=== PATIENT | male | born 1955 | race Caucasian/White ===

== ENCOUNTER 2017-04-29 14:35 | Emergency (ER) | payer OTHER, SELFPAY ==
[2017-04-29 15:07] VITALS: BP 125/93; PULSE 93; RESP 18; TEMP 36.8; O2SAT 96; BMI 28.2
--- NOTE | 2017-04-29 15:16 | HMH.EDARPALP ---
ED Disposition Clinical Impression: Anxiety, Tobacco use disorder, Intermittent palpitations, Medication side effect, COPD (chronic obstructive pulmonary disease) Disposition: Home, Self-Care Condition on Discharge: Good Additional Instructions: 1- The patient was advised to stop smoking and see Dr. Nava for COPD. 2- stop using over the counter mucines because it has phenylephrine. 3- follow up with pcp for cancer work up as we discussed it you are worried. 4-follow up with comp care for anxiety. Referrals: Donta Moyer MD [Primary Care Provider] - Sunday Nava MD [Consulting Physician] - - Critical Care Critical Care Time: No Attestation: On 04/29/17, the high probability of a clinically significant, sudden or life threatening deterioration of the following system(s) required my full and direct attention, intervention and personal management. The time I documented below is in addition to time spent performing reported procedures but includes the following listed in this critical care notation. Medical Decision Making - Medical Records Medical records reviewed: Yes: I reviewed the patient's medical records. Vital Signs: 04/29/17 15:07 Temperature 98.2 F Temperature Source Oral Pulse Rate [Right Brachial] 93 H Respiratory Rate 18 Blood Pressure [Right Arm] 125/93 Blood Pressure Mean [Right Arm] 103 Blood Pressure Source [Right Arm] Automatic Cuff Blood Pressure Position [Right Arm] Sitting 02 Sat by Pulse Oximetry 96 Oxygen Delivery Method Room Air - Lab Data Lab Results 04/29/17 15:14: Specimen Source Right radial, O2 % Room air, ABG pH 7.41, ABG pCO2 34.6 L, ABG pO2 69.3 L, ABG HCO3 21.4 L, ABG Total CO2 22.5 L, ABG O2 Saturation 95, ABG Base Excess -3.2 L, Sukumar Test Acceptable 04/29/17 15:25: WBC 9.0, RBC 5.05, Hgb 17.0, Hct 50.0, MCV 99.0 H, MCH 33.7 H, MCHC 34.1, RDW 12.6, Plt Count 187, MPV 7.5, Neut % (Auto) 73.6, Lymph % (Auto) 18.5, Stephenson % (Auto) 6.4, Eos % (Auto) 0.8, Baso % (Auto) 0.7, Neut # (Auto) 6.6, Lymph # (Auto) 1.7, Stephenson # (Auto) 0.6, Eos # (Auto) 0.1, Baso # (Auto) 0.1 04/29/17 15:25: D-Dimer < 100 04/29/17 15:25: Sodium 135 L, Potassium 4.7, Chloride 101, Carbon Dioxide 26, Anion Gap 12.7, BUN 33 H, Creatinine 1.34 H, Estimated Creat Clear 82, Estimated GFR 54 L, Est GFR ( Amer) 66, Glucose 98, Calcium 8.9, Total Bilirubin 0.9, AST 19, ALT 38, Alkaline Phosphatase 79, Troponin I < 0.02, Total Protein 7.8, Albumin 4.4, Globulin 3.4 H, Albumin/Globulin Ratio 1.3, TSH 0.98, Free T4 1.22 04/29/17 15:25: B-Natriuretic Peptide 6 04/29/17 15:25: Magnesium 2.0 Result diagrams: 04/29/17 15:25 04/29/17 15:25 Orders (Tests/Meds): ORDERS Category Date Time Status EKG Request [ECG Request by /Monique] Stat Y 04/29/17 15:16 Ordered - ECG Data Tracing #1 Normal sinus rhythm 89/min no acute findings. ECG initial impression date: 04/29/17 - Abdias Inquiry Pt receiving controlled substance: No Abdias was queried for this patient: No Medical Decision Making Narrative: The patient was ruled out for an OK using troponin and EKG, he was ruled out for pulmonary embolism using a d-dimer, he had no congestive heart failure using CHF, [place] toxicosis using TSH and free T4. Standard the cause of his anxiety is his financial worries. He does have mild COPD from his long hx of smoking , and he needs to stop. Arrhythmia/Palpitations HPI - General Chief Complaint: Dizziness Stated Complaint: anxiety,light headed Mode of Arrival: Family Vehicle Limitations: No Limitations - History of Present Illness HPI narrative: 61 years old white male who was going through disability process. He has been experiencing anxiety dizziness palpitations for the past 2 weeks. He is afraid that he is experiencing a heart. When he gets so anxious with palpitations he smokes a cigarette sometimes it helps sometimes does not. He feels like is gettin
--- NOTE | 2017-04-29 15:20 | ED_ITS ---
ED Disposition Clinical Impression: Anxiety, Tobacco use disorder, Intermittent palpitations, Medication side effect, COPD (chronic obstructive pulmonary disease) Disposition: Home, Self-Care Condition on Discharge: Good Additional Instructions: 1- The patient was advised to stop smoking and see Dr. Nava for COPD. 2- stop using over the counter mucines because it has phenylephrine. 3- follow up with pcp for cancer work up as we discussed it you are worried. 4-follow up with comp care for anxiety. Referrals: Donta Moyer MD [Primary Care Provider] - Sunday Nava MD [Consulting Physician] - - Critical Care Critical Care Time: No Attestation: On 04/29/17, the high probability of a clinically significant, sudden or life threatening deterioration of the following system(s) required my full and direct attention, intervention and personal management. The time I documented below is in addition to time spent performing reported procedures but includes the following listed in this critical care notation. Medical Decision Making - Medical Records Medical records reviewed: Yes: I reviewed the patient's medical records. Vital Signs: 04/29/17 15:07 Temperature 98.2 F Temperature Source Oral Pulse Rate [Right Brachial] 93 H Respiratory Rate 18 Blood Pressure [Right Arm] 125/93 Blood Pressure Mean [Right Arm] 103 Blood Pressure Source [Right Arm] Automatic Cuff Blood Pressure Position [Right Arm] Sitting 02 Sat by Pulse Oximetry 96 Oxygen Delivery Method Room Air - Lab Data Lab Results 04/29/17 15:14: Specimen Source Right radial, O2 % Room air, ABG pH 7.41, ABG pCO2 34.6 L, ABG pO2 69.3 L, ABG HCO3 21.4 L, ABG Total CO2 22.5 L, ABG O2 Saturation 95, ABG Base Excess -3.2 L, Sukumar Test Acceptable 04/29/17 15:25: WBC 9.0, RBC 5.05, Hgb 17.0, Hct 50.0, MCV 99.0 H, MCH 33.7 H, MCHC 34.1, RDW 12.6, Plt Count 187, MPV 7.5, Neut % (Auto) 73.6, Lymph % (Auto) 18.5, Lawrence % (Auto) 6.4, Eos % (Auto) 0.8, Baso % (Auto) 0.7, Neut # (Auto) 6.6 , Lymph # (Auto) 1.7, Lawrence # (Auto) 0.6, Eos # (Auto) 0.1, Baso # (Auto) 0.1 04/29/17 15:25: D-Dimer < 100 04/29/17 15:25: Sodium 135 L, Potassium 4.7, Chloride 101, Carbon Dioxide 26, Anion Gap 12.7, BUN 33 H, Creatinine 1.34 H, Estimated Creat Clear 82, Estimated GFR 54 L, Est GFR ( Amer) 66, Glucose 98, Calcium 8.9, Total Bilirubin 0.9, AST 19, ALT 38, Alkaline Phosphatase 79, Troponin I < 0.02, Total Protein 7.8, Albumin 4.4, Globulin 3.4 H, Albumin/Globulin Ratio 1.3, TSH 0.98, Free T4 1.22 04/29/17 15:25: B-Natriuretic Peptide 6 04/29/17 15:25: Magnesium 2.0 Result diagrams: 04/29/17 15:25 04/29/17 15:25 Orders (Tests/Meds): ORDERS Category Date Time Status EKG Request [ECG Request by /Monique] Stat Y 04/29/17 15:16 Ordered - ECG Data Tracing #1 Normal sinus rhythm 89/min no acute findings. ECG initial impression date: 04/29/17 - Abdias Inquiry Pt receiving controlled substance: No Abdias was queried for this patient: No Medical Decision Making Narrative: The patient was ruled out for an CA using troponin and EKG, he was ruled out for pulmonary embolism using a d-dimer, he had no congestive heart failure using CHF, at [place] toxicosis using TSH and free T4. Standard the cause of his anxiety is his financial worries. He does have mild COPD from his long hx of smoking , and he needs to stop. [facility]
[2017-04-29 15:34] LABS: Basophils # 0.1 K/mm3 (0-0.2); Basophils % 0.7 % (0.1-2.0); Eosinophils # 0.1 K/mm3 (0.0-0.4); Eosinophils % 0.8 % (0.1-12.0); Lymphocytes # 1.7 K/mm3 (0.7-4.5); Lymphocytes % 18.5 K/mm3 (10-50); Mean Corpuscular HGB Conc 34.1 g/dL (31.8-35.4); Mean Corpuscular Hemoglobin 33.7 pg (27.0-31.2); Mean Platelet Volume 7.5 fl (7.4-10.4); Monocytes # 0.6 K/mm3 (0.1-1.0); Monocytes % 6.4 % (1.7-9.3); Neutrophils # 6.6 K/mm3 (1.8-7.8); Neutrophils % 73.6 % (37.0-80.0); Platelet Count 187 K/mm3 (142-424); Red Blood Count 5.05 M/mm3 (4.60-6.20); Red Cell Distribution Width 12.6 % (11.5-17.5)
[2017-04-29 15:50] LABS: Troponin I < 0.02 ng/ml (0.00-0.06)
[2017-04-29 15:55] LABS: Alanine Aminotransferase 38 U/L (12-78); Albumin Level 4.4 gm/dL (3.4-5.0); Albumin/Globulin Ratio 1.3 (1.1-1.8); Alkaline Phosphatase 79 U/L (46-116); Anion Gap 12.7 mEq/L (5-15); Aspartate Amino Transferase 19 U/L (15-37); Bilirubin,Total 0.9 mg/dL (0.2-1.0); Blood Urea Nitrogen 33 mg/dL (7-18); Calcium 8.9 mg/dL (8.5-10.1); Carbon Dioxide 26 mmol/L (21.0-32.0); Chloride 101 mmol/L (98-107); Creatinine Clearance Estimated 82 mL/min (0-300); Creatinine,Serum 1.34 mg/dL (0.70-1.30); Estimated Glomerular Filt Rate 54 ml/min (>60); Free T4 (Free Thyroxine) 1.22 ng/dl (0.76-1.46); GFR (African American) 66 ML/MIN (>60); Globulin 3.4 gm/dl (1.3-3.2); Glucose 98 mg/dL (74-106); Potassium 4.7 mmoL/L (3.5-5.1); Sodium 135 mmol/L (136-145); Thyroid Stimulating Hormone 0.98 uIU/ml (0.358-3.740); Total Protein,Serum 7.8 gm/dL (6.4-8.2)
[2017-04-29 16:13] LABS: ABG Base Excess -3.2 mmol/L (-2.4-2.3); ABG HCO3 21.4 mmhg (22.0-26.0); ABG Oxygen Saturation 95 % (90-100); ABG PCO2 34.6 mmhg (35.0-45.0); ABG PH 7.41 mmol/L (7.35-7.45); ABG PO2 69.3 mmhg (80-100); ABG TCO2 22.5 mmhg (23-27)
[2017-04-29 16:16] LABS: Allen's Test Acceptable; Oxygen ROOM AIR %; Source Right Radial
[2017-04-29 16:18] LABS: D-Dimer < 100 (0-400)
== END 2017-04-29 17:19 | disposition home or self-care (01) ==
PROVIDERS: Emergency Provider Emergency Medicine; Family Provider Nurse Practitioner Family; PCP Internal Medicine Adolescent Medicine
DX: F41.9 Anxiety disorder, unspecified (principal); R00.2 Palpitations; T50.905A Adverse effect of unspecified drugs, medicaments and biological substances, initial encounter; J44.9 Chronic obstructive pulmonary disease, unspecified; F17.210 Nicotine dependence, cigarettes, uncomplicated
CPT/HCPCS: 80053; 82803; 83735; 83880; 84439; 84443; 84484; 85025; 85378; 93005; 93041; 99283

== ENCOUNTER → 2018-10-29 15:14 | Outpatient (CLI) | payer OTHER, SELFPAY ==
--- NOTE | 2018-10-29 15:19 | CT_ITS ---
CT lung screening EXAM: CT LUNG LOW DOSE WO CONTRAST HISTORY: 50 pack-year smoking history, asymptomatic for lung cancer ITS.REASON: CURRENT TOBACCO USE ORDERING PHYSICIAN: Jana Armendariz PATIENT AGE: 63 years COMPARISON: None TECHNIQUE: The exam was performed on a GE Light Speed [address] scanner using 2.90 mGy CTDI. A low dose helical CT CHEST was performed on a multi-detector scanner. All CT scans at the facility use one or more dose reduction, viz: automated exposure control, ma/kV adjustment per patient size (including targeted exams where dose is matched to indication, i.e. head), or iterative reconstruction technique. The LDCT was performed in a facility that meets the criteria for the screening program. Data regarding this exam was submitted to ACR which is an approved registry. The order for this exam indicates that it came as a result of a lung cancer screening counseling shard decision-making visit that included all the elements required of such a visit including smoking cessation. The radiologist interpreting this exam meets the [facility] criteria for the LDCT lung cancer screening program. The exam is reported using the Lung-RADS classification scale and reported to the ACR registry. NOTE: This study was performed for the specific purposes of lung cancer screening and is not an alternative to diagnostic chest CT. RADIATION DOSE: CTDI vol(CT dose Index-volume) = 2.90mG DLP (Dose Length Product) = 109.42 mGcm FINDINGS: Changes of COPD with scattered areas of scarring and evidence of old granulomatous disease. 4 mm noncalcified nodule left apex axial image 13. No suspicious pulmonary nodules are evident. Coronary artery calcifications Probable right exophytic renal cyst Gynecomastia IMPRESSION: 1. Lung RADS Category: 2, benign 2. Other findings: Coronary artery calcification COPD. Gynecomastia RECOMMENDATIONS: 12 month LDCT follow-up
== END ==
PROVIDERS: PCP Nurse Practitioner Family; Visit Provider Nurse Practitioner Family
DX: Z12.2 Encounter for screening for malignant neoplasm of respiratory organs (principal); Z87.891 Personal history of nicotine dependence

== ENCOUNTER → 2019-11-04 15:04 | Outpatient (CLI) | payer MEDICARE, MEDICAID, SELFPAY ==
--- NOTE | 2019-11-04 15:08 | CT_ITS ---
PROCEDURE: CT LUNG SCREENING CLINICAL INDICATION: COPD 76.5 pack year smoking history. COMPARISON: CT LUNGSCREEN CT lung screening from 10/29/2018 TECHNIQUE: The exam was performed on a GE Light Speed [address] scanner using 2.90 mGy CTDI. A low dose helical CT CHEST was performed on a multi-detector scanner. All CT scans at the facility use one or more dose reduction, viz: automated exposure control, ma/kV adjustment per patient size (including targeted exams where dose is matched to indication, i.e. head), or iterative reconstruction technique. The LDCT was performed in a facility that meets the criteria for the screening program. Data regarding this exam was submitted to ACR which is an approved registry. The order for this exam indicates that it came as a result of a lung cancer screening counseling shard decision-making visit that included all the elements required of such a visit including smoking cessation. The radiologist interpreting this exam meets the CMS criteria for the LDCT lung cancer screening program. The exam is reported using the Lung-RADS classification scale and reported to the ACR registry. NOTE: This study was performed for the specific purposes of lung cancer screening and is not an alternative to diagnostic chest CT. RADIATION DOSE: CTDI vol(CT dose Index-volume) = 2.90mG DLP (Dose Length Product) = 117.24 mGcm Lung Rads Category: FINDINGS: COPD. Old granulomatous disease. Scattered areas of scarring. Bronchial thickening. No suspicious nodules OTHER FINDINGS: Gynecomastia. Coronary artery calcifications. Exophytic soft tissue density projecting off posterior aspect of the right kidney at 3.6 cm and may represent right renal cyst. 1.5 cm exophytic density superior aspect right kidney which may present a cyst. IMPRESSION: Lung rads category 1, negative Recommend annual LD CT Incidental note made coronary artery calcification COPD bronchial thickening and possible right renal cysts Dictated by: Sukumar Ayala MD 11/18/2019 07:53 Sukumar Ayala MD in [place] 11/18/2019 07:53
== END ==
PROVIDERS: PCP Nurse Practitioner Family; Visit Provider Nurse Practitioner Family
DX: Z87.891 Personal history of nicotine dependence (principal); Z12.2 Encounter for screening for malignant neoplasm of respiratory organs

== ENCOUNTER 2020-03-23 19:38 | Inpatient (IN) | payer MEDICARE, MEDICAID, SELFPAY ==
[2020-03-23] VITALS (12 sets, daily range): BP systolic 104–166; BP diastolic 68–108; PULSE 88–135; RESP 16–30; TEMP 36.7–37.5; O2SAT 84–99; BMI 35.3; BMI 31.5
[2020-03-23 19:48] LABS: ABG Base Excess -4.4 mmol/L (-2.4-2.3); ABG Oxygen Saturation 93 % (90-100); ABG PH 7.24 mmol/L (7.35-7.45); ABG PO2 70.1 mmhg (80-100); ABG TCO2 24.7 mmhg (23-27)
--- NOTE | 2020-03-23 19:48 | XR_ITS ---
PROCEDURE: XR CHEST PORTABLE CLINICAL HISTORY: soa Respiratory distress, shortness of air COMPARISON: No exams were available for comparison FINDINGS: The cardiomediastinal silhouette and pulmonary vascularity are within normal limits. There is blunting of the CP angles on both sides suggesting small effusions. There is vascular crowding in the lung bases. No acute bony abnormalities. IMPRESSION: Trace bilateral effusions Dictated by: Sukumar Ayala MD 03/23/2020 22:15 Sukumar Ayala MD in [place] 03/23/2020 22:15
[2020-03-23 19:51] LABS: Allen's Test Acceptable; Source Right Radial
[2020-03-23 19:58] LABS: Basophils # 0.1 K/mm3 (0-0.2); Basophils % 1.3 % (0.1-2.0); Eosinophils # 0.1 K/mm3 (0.0-0.4); Eosinophils % 1.4 % (0.1-12.0); Hematocrit 58.9 % (42.0-52.0); Lymphocytes # 2.6 K/mm3 (0.7-4.5); Lymphocytes % 34.9 % (10-50); Mean Corpuscular HGB Conc 33.1 g/dL (31.8-35.4); Mean Corpuscular Hemoglobin 36.7 pg (27.0-31.2); Mean Corpuscular Volume 110.7 fl (80-94); Mean Platelet Volume 7.7 fl (7.4-10.4); Monocytes # 0.4 K/mm3 (0.1-1.0); Monocytes % 5.9 % (1.7-9.3); Neutrophils # 4.2 K/mm3 (1.8-7.8); Neutrophils % 56.6 % (37.0-80.0); Platelet Count 244 K/mm3 (142-424); Red Blood Count 5.32 M/mm3 (4.60-6.20); Red Cell Distribution Width 15.3 % (11.5-17.5); White Blood Count 7.4 K/mm3 (4.8-10.8)
[2020-03-23 20:04] LABS: Hemoglobin 19.5 g/dL (14.1-18.0)
--- NOTE | 2020-03-23 20:20 | ECG_ITS ---
APPROVED REPORT Exam: Resting ECG HR:122 bpm ECG Measurements Heart Rate 122 AXES NC 142 P 87 QRSd 80 QRS 80 QT 312 T 85 QTc 444 Conclusion Sinus tachycardia Otherwise normal ECG Electronically signed by : Donta Moyer, 03/24/2020 17:27:15
[2020-03-23 20:21] LABS: NT Pro Brain Natriuretic Pep. 42.1 pg/mL (0-125)
[2020-03-23 20:25] LABS: Coronavirus 19 IgG Antibody Negative (Negative); Coronavirus 19 IgM Antibody Negative (Negative); Troponin I < 0.01 ng/ml (0.00-0.034)
[2020-03-23 20:27] LABS: Free T4 (Free Thyroxine) 1.14 ng/dl (0.78-2.19)
--- NOTE | 2020-03-23 20:33 | HMH.EDSOB ---
ED Disposition Clinical Impression: Acute exacerbation of chronic obstructive airways disease, Tobacco use disorder, Severe sepsis with acute organ dysfunction, Obesity (BMI 30-39.9) Respiratory failure with hypercapnia Qualifiers: Chronicity: acute on chronic Qualified Code(s): J96.22 - Acute and chronic respiratory failure with hypercapnia Disposition: Admitted As Inpatient Condition on Discharge: Serious - Critical Care Critical Care Time: Yes Attestation: On 03/23/20, the high probability of a clinically significant, sudden or life threatening deterioration of the following system(s) required my full and direct attention, intervention and personal management. The time I documented below is in addition to time spent performing reported procedures but includes the following listed in this critical care notation. Total Critical Care Time: 60 Vital system(s) involved:: Respiratory Failure My critical care processes included: Assessment & monitoring of V/S, Initial and Re-exams, Coordinating Care, Medication Orders and management, Documentation Medical Decision Making - Medical Records Medical records reviewed: Yes: I reviewed the patient's medical records. - Abdias Inquiry Pt receiving controlled substance: No Vital Signs: 03/23/20 19:37 03/23/20 20:30 Temperature 99.5 F Temperature Source Oral Pulse Rate [Right Brachial] 135 H 118 H Respiratory Rate 28 H 29 H Blood Pressure [Right Arm] 166/108 H 112/83 Blood Pressure Mean [Right Arm] 127 92 Blood Pressure Source [Right Arm] Automatic Cuff Automatic Cuff Blood Pressure Position [Right Arm] Sitting Sitting 02 Sat by Pulse Oximetry 99 97 Oxygen Delivery Method CPAP Venturi Mask Oxygen Flow Rate (LPM) 10 12 - Lab Data Lab results reviewed: Yes: I reviewed the patient's lab results. Lab Results 03/23/20 19:00: WBC 7.4, RBC 5.32, Hgb 19.5 H*, Hct 58.9 H, MCV 110.7 H, MCH 36.7 H, MCHC 33.1, RDW 15.3, Plt Count 244, MPV 7.7, Neut % (Auto) 56.6, Lymph % (Auto) 34.9, Shannon % (Auto) 5.9, Eos % (Auto) 1.4, Baso % (Auto) 1.3, Neut # (Auto) 4.2, Lymph # (Auto) 2.6, Shannon # (Auto) 0.4, Eos # (Auto) 0.1, Baso # (Auto) 0.1 03/23/20 19:00: Sodium 136, Potassium 3.8, Chloride 101, Carbon Dioxide 23, Anion Gap 15.8 H, BUN 17, Creatinine 1.20, Estimated Creat Clear 87, Estimated GFR 61, Est GFR ( Amer) 74, Glucose 126 H, Calcium 9.6, Troponin I < 0.01, NT-Pro-B Natriuret Pep 42.1, TSH 2.28 03/23/20 19:00: Free T4 1.14 03/23/20 19:00: SARS-CoV-2 IgG Ab (Rapid) Negative, SARS-CoV-2 IgM Ab (Rapid) Negative 03/23/20 19:00: D-Dimer 0.91 03/23/20 19:46: Specimen Source Right radial, O2 % 10 lpm bipap 7.5, ABG pH 7.24 L*, ABG pCO2 55.0 H, ABG pO2 70.1 L, ABG HCO3 23.0, ABG Total CO2 24.7, ABG O2 Saturation 93, ABG Base Excess -4.4 L, Sukumar Test Acceptable 03/23/20 20:10: Lactate 2.3 H Result diagrams: 03/23/20 19:00 03/23/20 19:00 Orders (Tests/Meds): ED MEDICATIONS Generic Name Dose Route Start Last Admin Trade Name Freq PRN Reason Stop Dose Admin Levofloxacin/Dextrose 750 mg in 150 mls @ 100 mls/hr 03/23/20 21:30 03/23/20 21:26 Levofloxacin 750mg/150ml Premix IV 04/06/20 21:29 100 mls/hr Q24H OLIVER Administration Protocol Discontinued Medications Generic Name Dose Route Start Last Admin Trade Name Freq PRN Reason Stop Dose Admin Methylprednisolone Sodium Succinate 125 mg 03/23/20 19:53 03/23/20 19:58 Methylprednisolone Sod Succ 125mg Vial IV 03/23/20 19:54 125 mg ONCE ONE Administration ORDERS Category Date Time Status XR chest portable Stat Exams 03/23/20 19:48 Taken Troponin I Q3H Lab 03/23/20 23:00 Ordered Troponin I Q3H Lab 03/24/20 02:00 Ordered Blood Culture Stat Micro 03/23/20 20:10 Received ABG [Arterial Blood Gas] Stat RT 03/23/20 23:30 Ordered - Radiology Data #1 Image(s): Chest Image Reviewed: Yes I reviewed the patient's radiology image Preliminary Findings: Abnormal (copd) - ECG Data
[2020-03-23 20:34] LABS: Lactic Acid 2.3 mmol/L (0.7-2.1)
[2020-03-23 20:35] LABS: Anion Gap 15.8 mEq/L (5-15); Blood Urea Nitrogen 17 mg/dl (9-20); Calcium 9.6 mg/dl (8.4-10.2); Carbon Dioxide 23 mmol/L (22.0-30.0); Chloride 101 mmol/L (98-107); Creatinine Clearance Estimated 87 mL/min (50-200); Estimated Glomerular Filt Rate 61 ml/min (>60); GFR (African American) 74 ML/MIN (>60); Glucose 126 mg/dl (74-100); Potassium 3.8 mmoL/L (3.5-5.1); Sodium 136 mmol/L (136-145)
[2020-03-23 20:42] LABS: Thyroid Stimulating Hormone 2.28 uIU/mL (0.465-4.68)
--- NOTE | 2020-03-23 21:12 | PC.NURSE ---
PATIENT SET AT 30%
--- NOTE | 2020-03-23 21:14 | PC.NURSE ---
on phone with dr preston
--- NOTE | 2020-03-23 21:21 | PC.NURSE ---
on phone with dr preston.
[2020-03-23 21:33] LABS: D-Dimer 0.91 ug/mL (0.15-8.0)
--- NOTE | 2020-03-23 23:31 | PC.NURSE ---
PT ARRIVED TO FLOOR VIA STRETCHER @ [phone]
[2020-03-23 23:35] LABS: ABG Base Excess -4.6 mmol/L (-2.4-2.3); ABG HCO3 21.3 mmhg (22.0-26.0); ABG Oxygen Saturation 96 % (90-100); ABG PCO2 41.3 mmhg (35.0-45.0); ABG PH 7.33 mmol/L (7.35-7.45); ABG PO2 77.8 mmhg (80-100); ABG TCO2 22.6 mmhg (23-27)
[2020-03-23 23:39] LABS: Allen's Test Acceptable; Oxygen 30% %; Source Right Radial
[2020-03-23 23:54] LABS: Reflex Lactic Add Lactic Reflex
[2020-03-24] VITALS (16 sets, daily range): BP systolic 96–147; BP diastolic 65–86; PULSE 79–100; RESP 20–22; TEMP 36.4–37.1; O2SAT 92–98; BMI 31.5
[2020-03-24 00:09] LABS: Lactic Acid Follow Up (RFLX 1) 1.6 mmol/L (0.7-2.1)
[2020-03-24 00:46] LABS: Troponin I 0.05 ng/ml (0.00-0.034)
[2020-03-24 02:47] LABS: Troponin I 0.05 ng/ml (0.00-0.034)
--- NOTE | 2020-03-24 07:13 | HMH.PHAINT ---
MEDICATION RECONCILIATION COMPLETED ON PATIENT USING EXTERNAL FILL HISTORY FROM PHARMACY. -LUISITO LANGE, ESAD
[2020-03-24 07:15] LABS: Basophils % 0.2 % (0.1-2.0); Eosinophils % 0.3 % (0.1-12.0); Lymphocytes # 0.4 K/mm3 (0.7-4.5); Lymphocytes % 8.8 % (10-50); Mean Corpuscular HGB Conc 32.5 g/dL (31.8-35.4); Mean Corpuscular Hemoglobin 35.7 pg (27.0-31.2); Mean Corpuscular Volume 109.7 fl (80-94); Mean Platelet Volume 7.4 fl (7.4-10.4); Monocytes # 0.1 K/mm3 (0.1-1.0); Monocytes % 1.8 % (1.7-9.3); Neutrophils # 4.3 K/mm3 (1.8-7.8); Neutrophils % 88.9 % (37.0-80.0); Platelet Count 200 K/mm3 (142-424); Red Blood Count 4.82 M/mm3 (4.60-6.20); Red Cell Distribution Width 14.7 % (11.5-17.5); White Blood Count 4.8 K/mm3 (4.8-10.8)
--- NOTE | 2020-03-24 07:15 | HMH.PHAVTE ---
[facility] Pharm[facility] VTE Monitoring - Patient Demographics Admission date: 03/23/20 Report Date: 03/24/20 Time: 07:15 Allergies/Adverse Reactions: Patient Allergies erythromycin base [ERYTHROMYCIN BASE] Allergy (Unknown, Verified 11/19/18 11:23) NA-NAUSEA/VOMITING Height: 1.68 m Weight: 89.074 kg Patient Problems: Current Active Problems Tobacco use disorder (Acute) Acute exacerbation of chronic obstructive airways disease (Acute) Severe sepsis with acute organ dysfunction (Acute) Obesity (BMI 30-39.9) (Acute) Respiratory failure with hypercapnia (Acute) - VTE Risk Labs: VTE Related Lab Results Hgb 19.5 g/dL (14.1-18.0) H* 03/23/20 19:00 Hct 58.9 % (42.0-52.0) H 03/23/20 19:00 Plt Count 244 K/mm3 (142-424) 03/23/20 19:00 BUN 17 mg/dl (9-20) 03/23/20 19:00 Creatinine 1.20 mg/dl (0.66-1.25) 03/23/20 19:00 Estimated Creat Clear 87 mL/min (50-200) 03/23/20 19:00 - Prophylaxis VTE Prophylaxis Ordered?: Yes Types of VTE Prophylaxis: TEDS Knee High Location of Applied Device: Bilateral Lower Extremeties
[2020-03-24 07:22] LABS: MANUAL DIFFERENTIAL MANUAL DIFFERENTIAL (MANUAL DIFF)
[2020-03-24 07:24] LABS: Hemoglobin 17.2 g/dL (14.1-18.0)
[2020-03-24 07:25] LABS: Hematocrit 52.9 % (42.0-52.0)
[2020-03-24 07:32] LABS: Chloride 101 mmol/L (98-107); Sodium 135 mmol/L (136-145)
[2020-03-24 07:33] LABS: Potassium 4.5 mmoL/L (3.5-5.1)
[2020-03-24 07:35] LABS: Anion Gap 15.5 mEq/L (5-15); Blood Urea Nitrogen 22 mg/dl (9-20); Carbon Dioxide 23 mmol/L (22.0-30.0); Creatinine Clearance Estimated 78 mL/min (50-200); Estimated Glomerular Filt Rate 61 ml/min (>60); GFR (African American) 74 ML/MIN (>60)
[2020-03-24 07:36] LABS: Calcium 9.6 mg/dl (8.4-10.2); Glucose 139 mg/dl (74-100); Magnesium 1.8 mg/dl (1.6-2.3)
--- NOTE | 2020-03-24 07:39 | PC.NURSE ---
Pt is A&Ox4. Expiratory wheezing noted t/o all lung calderon per auscultation. Pt continues to tolerate vapotherm appropriately. Active bowel sounds in all 4 quads. Skin is CDI. Serax protocol was initiated this shift per MD Mchugh. Pt stated he drank 1-2 pints of whiskey a day . CIWA scores initiated q4h, scores ranged from 5-6. Seizure pads applied for safetyNo other acute changes or complaints at this time.
--- NOTE | 2020-03-24 08:00 | CA_ITS ---
APPROVED REPORT EXAM: Comprehensive 2D, Doppler, and color-flow Echocardiogram [employer]chandising Associate: Nallely Morales CRT Ht: 5 ft 6 in Wt: 196lbs BSA: 1.98 BP: 112/83 mmHg Indications: COPD, Shortness of Breath, Hypertension/HDD, home o2, smoker, murmur 2D Dimensions LVOT 2.22 cm (M/F) 1.5-2.5 M-Mode Dimensions RVDd 3.88 cm (0.9-2.6) LA Diam 3.90 cm (1.9-4.0) LVDd 4.30 cm (3.5-5.7) Ao Diam 4.18 cm (2.0-3.7) LVDs 2.74 cm (3.5-5.7) IVSd 1.33 cm (0.6-1.1) PWd 0.95 cm (0.6-1.1) EF (Teich) 66.30% FS 36.30% EDV (Teich) 83.10 mL ESV (Teich) 28.00 mL LV Diastology E Decel Time 150.00 (160-240 msec) E/A Ratio 0.48 MED E' 5.80 (< 7 cm/sec) E'/MED E' Ratio 6.78 (>14) LAT E' 7.00 (<10 cm/sec) E/LAT E' Ratio 5.61 (>14) Aortic Valve AO Peak GR. 4.60 mmHg Mitral Valve MV E Max Eron. 39.00 (40-130 cm/s) MV A Velocity 82.00 (40-130 cm/s) E/A Ratio 0.48 MV Decel. Time 150.00 (160-240 ms) MV PHT 44.00 ms Pulmonary Valve PV Peak Velocity 58.00 (50-150 cm/s) Tricuspid Valve TR P. Velocity 197.00 cm/s RAP Estimate 10.00 mmHg RVSP 25.50 mmHg Left Ventricle Left atrium is mildly enlarged, left ventricle is normal size, mild concentric left ventricular hypertrophy, visually estimated ejection fraction 55% with no obvious regional wall motion abnormality, endocardial surfaces are poorly visualized. Grade 1 diastolic dysfunction seen without tissue Doppler evidence of raise left atrial pressure. Right Ventricle Right atrium and right ventricle are mildly enlarged with normal contractility. Aortic Valve Aortic valve is minimally thickened and fibrosed, there is no aortic stenosis or aortic insufficiency. Mitral Valve Mitral valve leaflets are minimally thickened, there is mild mitral regurgitation. Tricuspid Valve Tricuspid valve is grossly normal, there is mild tricuspid regurgitation, tricuspid regurgitation jet velocity is inadequate for calculation of the right ventricular systolic pressure. Pulmonic Valve Pulmonic valve is poorly visualized. Great Vessels Aortic root is normal size. Pericardium No significant pericardial effusion noted. Conclusion 1. Technically difficult study because of the patient factors and poor acoustic windows 2. Mild biatrial enlargement, normal left ventricular size, mild concentric left ventricular hypertrophy, visually estimated ejection fraction 55% with no regional wall motion abnormality, grade 1 diastolic dysfunction seen without tissue Doppler evidence of raise left atrial pressure, endocardial surfaces are poorly visualized. 3. Mildly enlarged right ventricle with normal contractility. 4. Mild mitral and tricuspid regurgitation. 5. No significant pericardial effusion noted. Electronically signed by : Gallo Funez, 03/25/2020 05:38:45
[2020-03-24 08:44] LABS: Lymphocytes % 4 % (10-50); Monocytes % 2 % (2-9); Neutrophils % 94 % (42-76); Platelet Estimate Normal; Total Cells Counted 100
[2020-03-24 08:45] LABS: RBC Morphology Normal
--- NOTE | 2020-03-24 08:51 | HMH.HP ---
*Admission Date: 03/23/20 <Edel Hayden 03/24/20 09:07> *Chief complaint: COPD exacerbation <CatrachoEdel - 03/24/20 09:07> *History of present illness: Mr. Flores is a 64yo white male with history of HTN, oxygen-dependent COPD, depression, and tobacco abuse. He presented the [facility] ED yesterday after a two-hour period of increasing shortness of breath at home. He denies any recent illness and has otherwise been feeling well. He notes that he had run out of his Trelegy inhaler about 5 days ago and had started taking using a family member's Anoro the day prior to admission. He denies any associated chest pain or URI symptoms. Upon arrival, his CXR showed COPD and trace bilateral effusions. His EKG showed sinus tachycardia with nonspecific ST-T wave changes. He was given IV doses of Levaquin and Solumedrol and admitted for observation. This morning, he denies any pain and feels he is breathing better. He is eating breakfast and voiding per urinal qshift. He has a NPC and remains SOB at rest. He required vapotherm overnight to maintain sats >90%. <Edel Hayden 03/24/20 09:07> [facility] History Medical History: Reports:: Chronic Obstructive Pulmonary Disease (COPD), Depression, Heart Murmur, Home Oxygen, Hypertension, Lung Disease (COPD, asthma) Denies:: Cancer, Diabetes Mellitus Type 1, Diabetes Mellitus Type 2, Internal Pacemaker, MRSA, Seizures <Edel Hayden 03/24/20 09:07> *Have you ever received a pneumonia vaccine?: Yes <Edel Hayden 03/24/20 09:07> *Have you received a flu vaccine this season?: Yes <Edel Hayden 03/24/20 09:07> Other Surgeries: No: Pacemaker <Jeff Hayden03/24/20 09:07> Amputation: No <Edel Hayden 03/24/20 09:07> - *Social History Last grade of school completed: 11th or 12th <Edel Hayden 03/24/20 09:07> Smoking Status: Current every day smoker <Edel Hayden 03/24/20 09:07> Tobacco Type: cigarettes <Jeff Haydena 03/24/20 09:07> # Packs/Day (cigarettes): 2 <CatrachoEdel 03/24/20 09:07> Alcohol Intake: current <CatrachoEdel 03/24/20 09:07> Alcohol Intake Frequency:: 0-2 drinks per day <Jeff Haydena 03/24/20 09:07> *Occupational Status:: disabled <Catracho,Edel 03/24/20 09:07> Household Members: significant other <CatrachoEdel 03/24/20 09:07> *Travel in the last 8 weeks: None <CatrachoEdel 03/24/20 09:07> Family Hx:: Asthma, Cancer, Diabetes, Heart Attack, Hypertension, Alcoholism <Catracho03/24/20 09:07> Review of Systems - Constitutional Denies fever(s), Denies headache(s), Denies weakness <CatrachoEdel 03/24/20 09:07> - ENT Denies dizziness, Denies headache(s), Denies nasal congestion, Denies nasal discharge, Denies post nasal drip, Denies sinus pain, Denies sore throat, Denies dizziness <Catracho03/24/20 09:07> - *Cardiovascular Reports shortness of breath, Reports shortness of breath with activity, Denies chest pain, Denies chest pain with activity, Denies generalized swelling, Denies lightheadedness <CatrachoEdel 03/24/20 09:07> - *Respiratory Reports chest congestion, Reports cough, Reports shortness of breath, Reports shortness of breath with activity, Reports pain with cough, Reports wheezing <CatrachoEdel 03/24/20 09:07> - *Gastrointestinal Denies abdominal pain, Denies loose stools, Denies nausea, Denies vomiting [facility]/20 09:07> - *Genitourinary Denies difficulty urinating <CatrachoEdel 03/24/20 09:07> - *Musculoskeletal Denies muscle weakness <CatrachoEdel 03/24/20 09:07> - *Neurologic Denies dizziness, Denies headache(s), Denies seizure-like activity, Denies weakness <Edel Hayden - 03/24/20 09:07> - Hematologic/Lymphatic Denies enlarged lymph nodes <Edel Hayden - 03/24/20 09:07> Meds Home Medications Medication Instructions Recorded Confirmed Type Albuterol Sulfate [Albuterol 1 - 2 puffs IH Q4HP PRN 03/24/20 03/24/20 History Sulfate Hfa] Amlodipine Besylate [Amlodipine 10 mg PO DAILY 03/24/20 03/24/20 History 10mg Tab] Richa
--- NOTE | 2020-03-24 15:11 | SW/DCPLANNER ---
WENT IN TO SEE PATIENT TO SEE IF HE NEEDED ANYTHING: HE PRESENTED IN WITH A COPD EXACERBATION, HE RESIDES IN [facility] AND THE PLAN IS FOR HIM TO RETURN HOME ONCE MEDICALLY STABLE TO DO SO.. HE IS HOME 02 DEPENDENT AND LIVES WITH HIS SIGNIFICANT OTHER... AT THIS TIME HE HAS NO HOME CARE NEEDS... CM WILL BE AVAILABLE TO ASSIST IF SOMETHING SHOULD CHANGE.
--- NOTE | 2020-03-24 15:49 | PC.NURSE ---
PT IS SITTING UP ON THE SOB AT THIS TIME. ALERT AND ORIENTED X4. LAST CIWA SCORE WAS 4. PT HAS MILD TREMORS AND A MILD HEADACHE. O2 SATURATION HAS MAINTAINED 90-94% ON 2 L NC. PT CAN AMBULATE AROUND THE ROOM WITH VERY MINIMAL ASSISTANCE. WILL CONTINUE TO MONITOR.
[2020-03-25] VITALS (16 sets, daily range): BP systolic 108–138; BP diastolic 63–83; PULSE 67–109; RESP 20–26; TEMP 36.3–36.9; O2SAT 95–98; BMI 32.3
--- NOTE | 2020-03-25 04:33 | PC.NURSE ---
PT A&OX4 lungs diminished. pt remains on 2L NC with O2 sats 94-97%. last CIWA score was 1. pt has ambulated to independently. pt took a shower and received bed change. pt has slept at intervals this shift.
--- NOTE | 2020-03-25 08:53 | HMH.ACPN2 ---
<Padmini Shea - Last Filed: 03/25/20 08:53> Internal Medicine - PN: Subj *Date: 03/25/20 *Time: 08:53 Interval history: Patient states he feels a little bit better today. He slept well and did eat his breakfast. His shortness of breath is improved and he denies any pain. Exam Vital signs and Labs for Last 24 Hours: Temp Pulse Resp BP Pulse Ox 97.4 F L 83 20 131/83 96 03/25/20 07:36 03/25/20 07:36 03/25/20 07:36 03/25/20 07:36 03/25/20 07:36 I & O for Last 24 hours: Intake & Output 03/22/20 03/23/20 03/24/20 03/25/20 11:59 11:59 11:59 11:59 Intake Total 240 / 240 2115 / 2115 Output Total 625 / 625 2150 / 2150 Balance -385 / -385 -35 / -35 Weight 196 lb 6 oz 201 lb Microbiology Reports for the Last 24 Hours: Microbiology 03/24/20 06:25 Sputum - Expectorated Sputum Gram Stain - Final - Constitutional no acute distress - *Routine Respiratory Exam Present: wheezes. Absent: rales - *Routine Cardiovascular Exam Present: RRR - *Routine Abdominal Exam Present: soft, normoactive bowel sounds. Absent: tenderness - *Routine Extremities Exam Absent: cyanosis, clubbing, edema - *Routine Skin Exam Present: warm. Absent: rash - *Routine Neurological Exam Present: alert, oriented X3 Assessment and Plan (1) Acute exacerbation of chronic obstructive airways disease Status: Acute Category: Medical Code(s): J44.1 - Chronic obstructive pulmonary disease with (acute) exacerbation (2) Obesity (BMI 30-39.9) Status: Acute Category: Medical Code(s): E66.9 - Obesity, unspecified (3) Respiratory failure with hypercapnia Status: Acute Qualifiers: Chronicity: acute on chronic Qualified Code(s): J96.22 - Acute and chronic respiratory failure with hypercapnia Category: Medical Code(s): J96.92 - Respiratory failure, unspecified with hypercapnia (4) Severe sepsis with acute organ dysfunction Status: Acute Category: Medical Code(s): A41.9 - Sepsis, unspecified organism; R65.20 - Severe sepsis without septic shock (5) Tobacco use disorder Status: Acute Category: Medical Code(s): F17.200 - Nicotine dependence, unspecified, uncomplicated - Assessment and plan all Dx Assessment and Plan for all problems:: We will continue current care and await sputum culture results. <Will Mchugh - Last Filed: 03/25/20 09:50> Internal Medicine - PN: Subj *Date: 03/25/20 *Time: 09:50 Exam Vital signs and Labs for Last 24 Hours: Temp Pulse Resp BP Pulse Ox 97.4 F L 83 20 131/83 96 03/25/20 07:36 03/25/20 07:36 03/25/20 07:36 03/25/20 07:36 03/25/20 08:45 I & O for Last 24 hours: Intake & Output 03/22/20 03/23/20 03/24/20 03/25/20 23:59 23:59 23:59 23:59 Intake Total 480 / 480 1875 / 1875 Output Total 1575 / 1925 1200 / 1200 Balance -1095 / -1445 675 / 675 Weight 196 lb 6 oz 196 lb 6 oz 201 lb Microbiology Reports for the Last 24 Hours: Microbiology 03/24/20 06:25 Sputum - Expectorated Sputum Gram Stain - Final Assessment and Plan (1) Acute exacerbation of chronic obstructive airways disease Status: Acute Category: Medical Code(s): J44.1 - Chronic obstructive pulmonary disease with (acute) exacerbation (2) Obesity (BMI 30-39.9) Status: Acute Category: Medical Code(s): E66.9 - Obesity, unspecified (3) Respiratory failure with hypercapnia Status: Acute Qualifiers: Chronicity: acute on chronic Qualified Code(s): J96.22 - Acute and chronic respiratory failure with hypercapnia Category: Medical Code(s): J96.92 - Respiratory failure, unspecified with hypercapnia (4) Severe sepsis with acute organ dysfunction Status: Acute Category: Medical Code(s): A41.9 - Sepsis, unspecified organism; R65.20 - Severe sepsis without septic shock (5) Tobacco use disorder Status: Acute Category: Medical Code(s): F17.200 - Nicotine dependence, unspecified, uncompli
--- NOTE | 2020-03-25 15:00 | PC.NURSE ---
A&OX4. PT HAS TOLERATED 2L NC WELL THROUGHOUT SHIFT. RESPIRATIONS REGULAR AND UNLABORED. EXPIRATORY WHEEZES NOTED THROUGHOUT. OCCASIONAL PRODUCTIVE COUGH NOTED. HAND CHIEF CONTROLLER TOWER EQUAL. +2 PULSES NOTED THROUGHOUT. HAND CHIEF CONTROLLER TOWER EQUAL. ACTIVE BOWEL SOUNDS HEARD IN ALL 4 QUADRANTS. SOFT AND NONTENDER ABDOMEN. NO BM REPORTED THUS FAR. PT VOIDS PER URINAL. CLEAR YELLOW URINE NOTED. NO REPORTS OF PAIN THUS FAR. PT STATES HE FEELS MUCH BETTER COMPARED TO YESTERDAY. HE HAS SLEPT ON AND OFF THROUGHOUT SHIFT. CIWA HAS BEEN BELOW 2 THROUGHOUT SHIFT. WILL CONTINUE TO MONITOR. NO REPORTS OF SOB. PT HAS REMAINED ON TELE THROUGHOUT SHIFT. PT IS CURRENTLY ASLEEP W CALL LIGHT WITHIN REACH. BED IN LOWEST POSITION. VSS. WILL CONTINUE TO MONITOR.
--- NOTE | 2020-03-25 15:58 | PC.NURSE ---
CALLED RESPIRATORY TO GET PT DUO NEB TREATMENT.
[2020-03-26] VITALS: BP 126/64; PULSE 90; PULSE 99; RESP 22; TEMP 36.9; O2SAT 96
[2020-03-26 04:00] VITALS: BP 105/69; PULSE 80; RESP 24; TEMP 36.4; O2SAT 96
--- NOTE | 2020-03-26 04:50 | PC.NURSE ---
Pt has been pleasant and cooperative this shift. A&O X4. No complaints of pain or SOA. Pt is receiving O2 via NC @ 2 LPM with sats. >90%. Lung sounds reveal inspiratory and expiratory wheezing. Skin is C/D/I. No edema noted. Pt ambulates independently and uses the urinal to void dark, yellow urine without issue. No BM this shift. A new 20 G peripheral IV was inserted in the RT forearm this shift. IV is patent and SL. VSS. Call light within reach. Will continue to monitor.
[2020-03-26 05:04] VITALS: BMI 32.5
[2020-03-26 05:58] VITALS: PULSE 89; PULSE 92
--- NOTE | 2020-03-26 07:00 | XR_ITS ---
PROCEDURE: XR CHEST 2V CLINICAL HISTORY: SOB, COPD exacerbation COMPARISON: CR XR CHEST PORTABLE from 03/23/2020 FINDINGS: The cardiomediastinal silhouette and pulmonary vascularity are within normal limits. COPD. No lobar consolidation or collapse. There is increased density in the lower lung zones on both sides probably due to soft tissue attenuation the breast shadow. No acute bony abnormalities. IMPRESSION: COPD. Dictated by: Sukumar Ayala MD 03/26/2020 07:10 Sukumar Ayala MD in [facility] 03/26/2020 07:10
[2020-03-26 08:00] VITALS: BP 132/72; PULSE 57; PULSE 80; RESP 20; TEMP 37.2; O2SAT 91
--- NOTE | 2020-03-26 08:05 | HMH.ACPN2 ---
<Padmini Shea - Last Filed: 03/26/20 08:05> Internal Medicine - PN: Subj *Date: 03/26/20 *Time: 08:05 Interval history: Patient states he is feeling a little bit better today. He still has some shortness of breath and a cough. He denies any pain and states he slept off and on throughout the night and was able to eat some breakfast this morning. Exam Vital signs and Labs for Last 24 Hours: Temp Pulse Resp BP Pulse Ox 97.6 F 92 H 24 105/69 L 96 03/26/20 04:00 03/26/20 05:58 03/26/20 04:00 03/26/20 04:00 03/26/20 04:00 I & O for Last 24 hours: Intake & Output 03/23/20 03/24/20 03/25/20 03/26/20 11:59 11:59 11:59 11:59 Intake Total 240 / 240 2115 / 2115 870 / 870 Output Total 625 / 625 2150 / 2150 1974 / 1974 Balance -385 / -385 -35 / -35 -1105 / -1105 Weight 196 lb 6 oz 201 lb 202 lb 6 oz Microbiology Reports for the Last 24 Hours: Microbiology 03/24/20 06:25 Sputum - Expectorated Sputum Gram Stain - Final 03/24/20 06:25 Sputum - Expectorated Sputum Sputum Culture - Final Normal Respiratory Donna 03/23/20 20:10 Blood Blood Culture - Preliminary NO GROWTH AFTER 48 HOURS 03/23/20 20:10 Blood Blood Culture - Preliminary NO GROWTH AFTER 48 HOURS - Constitutional no acute distress - *Routine Respiratory Exam Present: decreased breath sounds, wheezes (bilaterally) - *Routine Cardiovascular Exam Present: RRR - *Routine Abdominal Exam Present: soft, normoactive bowel sounds. Absent: tenderness - *Routine Extremities Exam Absent: cyanosis, clubbing, edema - *Routine Skin Exam Present: warm. Absent: rash - *Routine Neurological Exam Present: alert, oriented X3 Assessment and Plan (1) Acute exacerbation of chronic obstructive airways disease Status: Acute Category: Medical Code(s): J44.1 - Chronic obstructive pulmonary disease with (acute) exacerbation (2) Obesity (BMI 30-39.9) Status: Acute Category: Medical Code(s): E66.9 - Obesity, unspecified (3) Respiratory failure with hypercapnia Status: Acute Qualifiers: Chronicity: acute on chronic Qualified Code(s): J96.22 - Acute and chronic respiratory failure with hypercapnia Category: Medical Code(s): J96.92 - Respiratory failure, unspecified with hypercapnia (4) Severe sepsis with acute organ dysfunction Status: Acute Category: Medical Code(s): A41.9 - Sepsis, unspecified organism; R65.20 - Severe sepsis without septic shock (5) Tobacco use disorder Status: Acute Category: Medical Code(s): F17.200 - Nicotine dependence, unspecified, uncomplicated - Assessment and plan all Dx Assessment and Plan for all problems:: Will discuss further care with Dr. Mchugh. <Will Mchugh - Last Filed: 03/26/20 08:41> Internal Medicine - PN: Subj *Date: 03/26/20 *Time: 08:40 Exam Vital signs and Labs for Last 24 Hours: Temp Pulse Resp BP Pulse Ox 98.9 F 57 L 20 132/72 91 L 03/26/20 08:00 03/26/20 08:00 03/26/20 08:00 03/26/20 08:00 03/26/20 08:00 I & O for Last 24 hours: Intake & Output 03/23/20 03/24/20 03/25/20 03/26/20 23:59 23:59 23:59 23:59 Intake Total 480 / 480 2595 / 2595 630 / 630 Output Total 1575 / 1925 2650 / 2825 525 / 525 Balance -1095 / -1445 -55 / -230 105 / 105 Weight 196 lb 6 oz 196 lb 6 oz 201 lb 202 lb 6 oz Microbiology Reports for the Last 24 Hours: Microbiology 03/24/20 06:25 Sputum - Expectorated Sputum Gram Stain - Final 03/24/20 06:25 Sputum - Expectorated Sputum Sputum Culture - Final Normal Respiratory Donna 03/23/20 20:10 Blood Blood Culture - Preliminary NO GROWTH AFTER 48 HOURS 03/23/20 20:10 Blood Blood Culture - Preliminary NO GROWTH AFTER 48 HOURS Assessment and Plan (1) Acute exacerbation of chronic obst
--- NOTE | 2020-03-26 08:38 | HMH.DCSUM ---
General - General Admission date:: 03/23/20 Discharge date: 03/26/20 HPI HPI: Mr. Flores is a 64yo white male with history of HTN, oxygen-dependent COPD, depression, and tobacco abuse. He presented the [facility] ED yesterday after a two-hour period of increasing shortness of breath at home. He denies any recent illness and has otherwise been feeling well. He notes that he had run out of his Trelegy inhaler about 5 days ago and had started taking using a family member's Anoro the day prior to admission. He denies any associated chest pain or URI symptoms. Upon arrival, his CXR showed COPD and trace bilateral effusions. His EKG showed sinus tachycardia with nonspecific ST-T wave changes. He was given IV doses of Levaquin and Solumedrol and admitted for observation. This morning, he denies any pain and feels he is breathing better. He is eating breakfast and voiding per urinal qshift. He has a NPC and remains SOB at rest. He required vapotherm overnight to maintain sats >90%. Hospital Course Hospital Course: The patient's initial chest x-ray showed trace bilateral effusions. He had been out of his inhaler at home, which probably played a large role in his admission. Smoking cessation was discussed with the patient. An echo was ordered. It showed an EF of 55% with grade 1 diastolic dysfunction. The patient's shortness of breath improved throughout his admission. He began eating and sleeping well. He had a repeat chest x-ray showing only COPD. His sputum showed no growth. His blood culture showed no growth. He was stable to be discharged home on some Trelegy samples. Objective Vital signs: Temp Pulse Resp BP Pulse Ox 98.9 F 57 L 20 132/72 91 L 03/26/20 08:00 03/26/20 08:00 03/26/20 08:00 03/26/20 08:00 03/26/20 08:00 Narrative: - Constitutional no acute distress - *Routine Respiratory Exam Present: decreased breath sounds, wheezes (bilaterally) - *Routine Cardiovascular Exam Present: RRR - *Routine Abdominal Exam Present: soft, normoactive bowel sounds. Absent: tenderness - *Routine Extremities Exam Absent: cyanosis, clubbing, edema - *Routine Skin Exam Present: warm. Absent: rash - *Routine Neurological Exam Present: alert, oriented X3 Results Labs on day of discharge: Preliminary micro results at discharge 03/23/20 20:10 Blood Culture - Preliminary Blood NO GROWTH AFTER 48 HOURS 03/23/20 20:10 Blood Culture - Preliminary Blood NO GROWTH AFTER 48 HOURS DS: Diagnosis - Discharge Diagnosis (1) Acute exacerbation of chronic obstructive airways disease Status: Acute (2) Obesity (BMI 30-39.9) Status: Acute (3) Respiratory failure with hypercapnia Status: Acute (4) Severe sepsis with acute organ dysfunction Status: Acute (5) Tobacco use disorder Status: Acute Discharge Plan - Patient Discharge Instructions ACTIVITY: Continue current activity DIET: continue same diet Patient Instructions: Chronic Obstructive Pulmonary Disease - Follow up Plan Follow up with: Jana Armendariz [Primary Care Provider] - 1 week Disposition: Home, Self-[facility] Medications: Home Medications Medication Instructions Recorded Confirmed Type Albuterol Sulfate [Albuterol 1 - 2 puffs IH Q4HP PRN 03/24/20 03/24/20 History Sulfate Hfa] Amlodipine Besylate [Amlodipine 10 mg PO DAILY 03/24/20 03/24/20 History 10mg Tab] Escitalopram Oxalate 20 mg PO DAILY 03/24/20 03/24/20 History Fluticasone/Umeclidin/Vilanter 1 puff IH DAILY 03/24/20 03/24/20 History [Trelegy Ellipta 100-62.5-25] Lisinopril/Hydrochlorothiazide 1 tab PO DAILY 03/24/20 03/24/20 History [Lisinopril-Hctz 20-12.5 mg Tab*] levoFLOXacin [Levaquin 750mg 750 mg PO DAILY #5 tab 03/26/20 Rx tablet] predniSONE [Prednisone 20mg 20 mg PO BID #10 tab 03/26/20 Rx Tab] Prescriptions/Medication Reconciliation: New levoFLOXacin [Levaquin 750mg tablet] 750
--- NOTE | 2020-03-26 09:26 | HMH.PHAINT ---
DISC-DISCUSSED PREDNISONE AND LEVAQUIN DOSING WITH THE PATIENT. CALLED [facility] TO MAKE SURE THEY WOULD BE OPEN TODAY. OPEN UNTIL 1:00. DISCUSSED WITH PATIENT.
== END 2020-03-26 10:45 | disposition home or self-care (01) | DRG 189 ==
LOC: ER 20:04 → 2ND 21:32
PROVIDERS: Admitting Provider Family Medicine; Emergency Provider Emergency Medicine; PCP Nurse Practitioner Family; Visit Provider Family Medicine
DX: J96.22 Acute and chronic respiratory failure with hypercapnia (principal); R65.20 Severe sepsis without septic shock; J44.1 Chronic obstructive pulmonary disease with (acute) exacerbation; Z72.0 Tobacco use; I10 Essential (primary) hypertension; Z99.81 Dependence on supplemental oxygen; Z79.51 Long term (current) use of inhaled steroids; Z79.899 Other long term (current) drug therapy
CPT/HCPCS: 36415; 71045; 71046; 80048; 82803; 83605; 83735; 83880; 84439; 84443; 84484; 85007; 85025; 85378; 86328; 87040; 87070; 87205; 93005; 93306; 94640; 94761; 96365; 96375; 99285; J1956; J2405

== ENCOUNTER → 2020-11-06 12:51 | Outpatient (CLI) | payer MEDICARE, MEDICAID, SELFPAY ==
--- NOTE | 2020-11-06 12:54 | CT_ITS ---
PROCEDURE: CT LUNG SCREENING CLINICAL INDICATION: HX OF NICOTINE DEPENDENCE Current smoker 50 pack year smoking history COMPARISON: CT CT LUNG SCREENING from 11/04/2019 TECHNIQUE: The exam was performed on a GE Light Speed [address] scanner using 2.90 mGy CTDI. A low dose helical CT CHEST was performed on a multi-detector scanner. All CT scans at the facility use one or more dose reduction, viz: automated exposure control, ma/kV adjustment per patient size (including targeted exams where dose is matched to indication, i.e. head), or iterative reconstruction technique. The LDCT was performed in a facility that meets the criteria for the screening program. Data regarding this exam was submitted to [employer] which is an approved registry. The order for this exam indicates that it came as a result of a lung cancer screening counseling shard decision-making visit that included all the elements required of such a visit including smoking cessation. The radiologist interpreting this exam meets the [facility] criteria for the LDCT lung cancer screening program. The exam is reported using the Lung-RADS classification scale and reported to the [employer]CR registry. NOTE: This study was performed for the specific purposes of lung cancer screening and is not an alternative to diagnostic chest CT. RADIATION DOSE: CTDI vol(CT dose Index-volume) = 2.90mG DLP (Dose Length Product) = 111.25 mGcm FINDINGS: COPD changes with evidence of old granulomatous disease. There is scattered areas of scarring. A new parenchymal opacity is present in the left lower lobe posteriorly flat like in nature consistent with an area of atelectasis or scarring which is developed in the interval. A 6 mm opacity is present in the left lower lobe posteriorly and inferiorly probably unchanged. OTHER FINDINGS: Coronary artery calcifications. Gynecomastia IMPRESSION: Lung-RADS Category 3 Probably Benign. New flat like parenchymal opacity left lower lobe posteriorly which may be due to postinflammatory scarring. Follow-up suggested. Follow-up: [address] Chest with contrast. Dictated by: Sukumar Ayala MD 11/09/2020 09:28 Sukumar Ayala MD in [place] 11/09/2020 09:28
== END ==
PROVIDERS: PCP Nurse Practitioner Family; Visit Provider Nurse Practitioner Family
DX: Z87.891 Personal history of nicotine dependence (principal); Z12.2 Encounter for screening for malignant neoplasm of respiratory organs
CPT/HCPCS: 71271

== ENCOUNTER 2022-08-12 10:25 | Inpatient (IN) | payer MEDICARE, MEDICAID, SELFPAY ==
[2022-08-12] VITALS (17 sets, daily range): BP systolic 90–170; BP diastolic 57–82; PULSE 60–97; RESP 18–36; TEMP 36.3–36.8; O2SAT 94–100; BMI 24.3; BMI 24.4
--- NOTE | 2022-08-12 10:30 | ECG_ITS ---
APPROVED REPORT Exam: Resting ECG HR:98 bpm ECG Measurements Heart Rate 98 AXES OR 148 P 82 QRSd 81 QRS 78 QT 357 T 65 QTc 412 Conclusion SINUS RHYTHM WITH OCCASIONAL ECTOPIC PREMATURE COMPLEXES NONSPECIFIC ST & T-WAVE ABNORMALITY BORDERLINE ECG UNCONFIRMED REPORT Electronically signed by : Donta Moyer MD 08/12/2022 14:59:59
--- NOTE | 2022-08-12 10:35 | XR_ITS ---
FINAL REPORT CLINICAL HISTORY: concern for pneumonia COMPARISON: 03/26/2020 FINDINGS: There is no evidence of effusion or other pleural disease. The mediastinum has a normal appearance. The cardiac silhouette is unremarkable. IMPRESSION: Unremarkable chest exam. Reviewed, Interpreted and Dictated by Nikita Rodriges MD Transcribed by Yuli Godoy Authenticated and [facility]
--- NOTE | 2022-08-12 10:37 | HMH.EDGENADL ---
Discharge Plan Disposition Patient Disposition: Admitted As Inpatient Clinical Impressions Clinical Impression: Acute and chronic respiratory failure, Asthma exacerbation in COPD Discharge ED Provider: Sheldon Huitron General Adult HPI General Chief complaint: Shortness of Breath/Dyspnea Stated complaint: resp distress Time Seen by Provider: 08/12/22 10:27 History of Present Illness HPI narrative: Patient is a 66-year-old male with past medical history of COPD, chronic respiratory failure who presents with concern for shortness of breath. He says that his symptoms started approximately 5 days ago. He says he has had changes in his sputum production and his coughing up brown-colored sputum. He says that he is wearing oxygen at home but says that he has had to wear more oxygen than normal. Denies any fever or chills. Says he feels like he cannot catch a full breath. He received 2 DuoNebs in route with EMS. Related Data Home Medications Medication Instructions Recorded Confirmed albuterol sulfate 90 mcg/actuation 1 - 2 puffs IH Q4HP PRN Shortness 03/24/20 03/24/20 aerosol inhaler Of Breath amlodipine 10 mg tablet 10 mg PO DAILY Hypertension 03/24/20 03/24/20 escitalopram oxalate 20 mg tablet 20 mg PO DAILY MOOD 03/24/20 03/24/20 fluticasone fur. 100 mcg-umeclid 1 puff IH DAILY COPD 03/24/20 03/24/20 62.5 mcg-vilant 25 mcg inhalat.powder lisinopril 20 1 tab PO DAILY Hypertension 03/24/20 03/24/20 mg-hydrochlorothiazide 12.5 mg tablet Previous Rx's Medication Instructions Recorded levofloxacin 750 mg tablet 750 mg PO DAILY #5 tabs 03/26/20 prednisone 20 mg tablet 20 mg PO BID #10 tabs 03/26/20 Allergies Allergy/AdvReac Type Severity Reaction Status Date / Time erythromycin base Allergy Unknown NA-NAUSEA/V Verified 11/19/18 11:23 [ERYTHROMYCIN BASE] OMITING PFSH PFSH Disclaimer: The information contained in this section may have been updated after the patient was seen, as this information can be updated by other users. Social History Smoking Status: Current every day smoker tobacco type: cigarettes packs per day: 2 second hand exposure: No alcohol intake: current current occupational status: disabled Travel in the last 8 weeks: None household members: significant other caffeine: No ROS Obtained: Yes All systems reviewed & no additional complaints except as documented Physical Exam General General appearance: alert and in distress Head Head exam: atraumatic, normocephalic and normal inspection Eye Eye exam: Present normal appearance and PERRL ENT ENT exam: Present normal exam, mucous membranes moist and normal external ear exam Neck Neck exam: Present normal inspection and trachea midline Chest Chest inspection: Present normal inspection and symmetric chest wall rise Respiratory Respiratory exam: Present normal lung sounds bilaterally, respiratory distress, wheezes, accessory muscle use and prolonged expiratory phase Expanded Respiratory Exam Location: Left: wheezes, rhonchi and decreased breath sounds, Right: wheezes, rhonchi and decreased breath sounds, Upper: wheezes, rhonchi and decreased breath sounds and Lower: wheezes, rhonchi and decreased breath sounds Cardiovascular Cardiovascular exam: Present normal rhythm and tachycardia Abdominal Exam Abdominal exam: Present soft; Absent distention, tenderness or guarding Extremities Exam Extremities exam: Present normal inspection; Absent edema Neurological Exam Neurological exam: Present alert and oriented X3 Psychiatric Psychiatric exam: Present normal affect and normal mood Skin Skin exam: Present warm, dry, intact and normal color Medical Decision Making Medical Records Medical records reviewed: Yes I reviewed the patient's medical records. Abdias Inquiry Pt receiving controlled substance: No Vital Signs: 08/12/22 10:25 08/12/22 10:31 08/12/22 11:00 Temperature 98.2 F Temperature Source Or
--- NOTE | 2022-08-12 10:53 | PC.NURSE ---
MAGNESIUM STARTED AND NO NEEDS AT THIS TIME
[2022-08-12 10:59] LABS: Alanine Aminotransferase 26 U/L (12-78); Albumin Level 3.7 g/dl (3.5-5.0); Albumin/Globulin Ratio 1.1 (1.1-1.8); Alkaline Phosphatase 127 U/L (38-126); Aspartate Amino Transferase 34 U/L (17-59); Bilirubin,Total 0.6 mg/dl (0.2-1.3); Blood Urea Nitrogen 24 mg/dl (9-20); Calcium 8.9 mg/dl (8.4-10.2); Chloride 91 mmol/L (98-107); Creatinine Clearance Estimated 68 mL/min (50-200); Estimated Glomerular Filt Rate 67 ml/min (>60); GFR (African American) 81 ML/MIN (>60); Globulin 3.3 g/dL (1.3-3.2); Glucose 129 mg/dl (74-100); Sodium 145 mmol/L (136-145)
--- NOTE | 2022-08-12 10:59 | PC.NURSE ---
rapid covid swab sent to lab
[2022-08-12 11:00] LABS: Basophils % 0.3 % (0.1-2.0); Eosinophils % 0.4 % (0.1-12.0); Hematocrit 43.2 % (42.0-52.0); Hemoglobin 13.9 g/dL (14.1-18.0); Lymphocytes # 1.6 K/mm3 (0.7-4.5); Lymphocytes % 13.8 % (10-50); Mean Corpuscular HGB Conc 32.1 g/dL (31.8-35.4); Mean Corpuscular Hemoglobin 34.4 pg (27.0-31.2); Mean Corpuscular Volume 107.3 fl (80-94); Mean Platelet Volume 8.1 fl (7.4-10.4); Monocytes # 0.5 K/mm3 (0.1-1.0); Monocytes % 4.9 % (1.7-9.3); Neutrophils % 80.6 % (37.0-80.0); Platelet Count 369 K/mm3 (142-424); Red Blood Count 4.03 M/mm3 (4.60-6.20); Red Cell Distribution Width 13.3 % (11.5-17.5); White Blood Count 11.2 K/mm3 (4.8-10.8)
[2022-08-12 11:03] LABS: Coronavirus 19, PCR Not Detected (NotDetected); Influenza A, PCR Not Detected (NotDetected); Influenza B, PCR Not Detected (NotDetected)
[2022-08-12 11:05] LABS: C-Reactive Protein 145.7 mg/L (0-4)
[2022-08-12 11:10] LABS: Anion Gap 15.9 mEq/L (5-15); Carbon Dioxide 41 mmol/L (22.0-30.0); Potassium 2.9 mmoL/L (3.5-5.1)
[2022-08-12 11:11] LABS: NT Pro Brain Natriuretic Pep. 1520 pg/mL (0-125)
[2022-08-12 11:14] LABS: VBG Base Excess 9.4 mmol/L (-2.4-2.3); VBG Oxygen Saturation 72.2 % (50-70); VBG PH 7.29 mmol/L (7.31-7.41); VBG PO2 41.1 mmol/L (28-40); VBG Total CO2 38.3 mmol/L (23-27)
[2022-08-12 11:16] LABS: Ethyl Alcohol < 10 mg/dl (0-10)
[2022-08-12 11:17] LABS: Procalcitonin 0.301 ng/mL (0.0-2.0)
--- NOTE | 2022-08-12 11:37 | PC.NURSE ---
checked on pt gave him a warm blanket, pillow with case and turned light off, nothing else needed at this time, significant other at bs
--- NOTE | 2022-08-12 12:34 | PC.NURSE ---
rounded on pt gave him a water and updated him that er md was speaking with hospitalist about admission
--- NOTE | 2022-08-12 12:35 | PC.NURSE ---
Dr Huitron speaking with hospitalist.
--- NOTE | 2022-08-12 12:39 | PC.NURSE ---
Care management called for admission
--- NOTE | 2022-08-12 12:56 | HMH.PHAINT1 ---
Pharmacy Intervention Comments: home medication list verified using list from outpatient pharmacy
--- NOTE | 2022-08-12 13:00 | PC.NURSE ---
vascular here for echo
--- NOTE | 2022-08-12 13:20 | PC.NURSE ---
report called to Eloy BECERRA
--- NOTE | 2022-08-12 13:34 | CT_ITS ---
FINAL REPORT TECHNIQUE: Axial CT without IV contrast administration. This study was performed with techniques to keep radiation doses as low as reasonably achievable (ALARA). Individualized dose reduction techniques using automated exposure control or adjustment of mA and/or kV according to the patient's size were employed. CLINICAL HISTORY: COPD abnormal CT Chest 2020 COMPARISON: 08/12/2022 FINDINGS: Note is made of underlying emphysema. There are fine nodular densities scattered in the periphery of the lung bases, greatest in the right lower lobe most suggestive of bronchiolitis. No large area of consolidation is identified. No lung mass is present. No pleural or pericardial effusion is seen. No adenopathy or mass lesion is present. IMPRESSION: Emphysema. Scattered fine areas of nodularity in the lung bases most suggestive of bronchiolitis, potential causes include TB/fungal disease. Reviewed, Interpreted and Dictated by Nikita Rodriges MD Transcribed by Kristy Campos Authenticated and [facility]
--- NOTE | 2022-08-12 13:34 | PC.NURSE ---
came to floor by stretcher from ED
--- NOTE | 2022-08-12 13:45 | EXP.HP ---
History of Present Illness *Admission Date: 08/12/22 *Reason for visit:: Dyspnea *History of present illness: This is a 66-year-old male who presents to [facility] emergency department for concerns of shortness of air. His past medical history significant for COPD, tobacco dependence and alcohol use disorder in remission. He is accompanied by his significant other of 16 years Alejandra Reyes who assists with the history. He reports approximately 1 week of shortness of air that has increased in severity. His shortness of air is now occurring at rest. He reports his home inhaler is not improving his symptomatology. He denies associated retrosternal chest pain, palpitations, dizziness, neurological changes, syncope or confusion. He reports an associated cough that is nonproductive. He denies associated hemoptysis. He reports routine care with Jana Armendariz in [facility]. In the ED diminished oxygen saturations on room air were noted. He required 30 L of oxygen via Airvo 45% FiO2 to maintain appropriate oxygen saturations. He completed several nebulizer treatments with some improvement. His chest imaging identified no acute disease and his labs identified hypokalemia and mild leukocytosis. His VBG PCO2 was 76. [facility] Medical History (Updated 08/12/22 @ 13:58 by Patricio Hernandez MD) Alcohol use disorder, severe, in early remission COPD (chronic obstructive pulmonary disease) Hyperlipidemia Hypertension Tobacco dependence Surgical History (Updated 08/12/22 @ 13:58 by Patricio Hernandez MD) History of colonoscopy Family History (Updated 08/12/22 @ 13:59 by Patricio Hernandez MD) Mother Lung cancer Father COPD (chronic obstructive pulmonary disease) Social History Smoking Status: Current every day smoker tobacco type: cigarettes packs per day: 2 second hand exposure: No alcohol intake: current current occupational status: disabled Travel in the last 8 weeks: None household members: significant other caffeine: No Review of Systems Review of Systems Review of systems:: pertinent systems reviewed and negative unless documented below Constitutional Constitutional: Reports chills, Reports difficulty sleeping, Denies fever(s), Reports poor appetite, Reports lethargy and Reports weakness ENT Ears, Nose, Mouth, and Throat: Denies dysphagia *Cardiovascular Cardiovascular: Denies chest pain, Denies chest pain at rest, Reports dyspnea, Reports dyspnea on exertion, Denies palpitations and Denies pedal edema *Respiratory Respiratory: Reports cough, Reports dyspnea, Reports dyspnea on exertion, Denies hemoptysis and Reports wheezing *Gastrointestinal Gastrointestinal: Denies dysphagia, Denies hematemesis, Denies loose stools, Denies nausea and Denies vomiting *Musculoskeletal Musculoskeletal: Denies myalgias *Neurologic Neurologic: Denies abnormal speech, Denies confusion, Denies convulsions and Reports weakness Psychiatric Psychiatric: Reports anxiety and Denies confusion Endocrine Endocrine: Denies palpitations Allergic/Immunologic Allergic/Immunologic: Reports wheezing Meds Home Medications and Allergies Home Medications Medication Instructions Recorded Confirmed Type albuterol sulfate 90 mcg/actuation 1 - 2 puffs IH Q4HP PRN Shortness 03/24/20 08/12/22 History aerosol inhaler Of Breath amlodipine 10 mg tablet 10 mg PO DAILY High blood pressure 03/24/20 08/12/22 History escitalopram oxalate 20 mg tablet 20 mg PO DAILY mood 03/24/20 08/12/22 History fluticasone fur. 100 mcg-umeclid 1 puff IH DAILY COPD 03/24/20 08/12/22 History 62.5 mcg-vilant 25 mcg inhalat.powder lisinopril 20 1 tab PO DAILY High blood pressure 03/24/20 08/12/22 History mg-hydrochlorothiazide 12.5 mg tablet bisoprolol fumarate 5 mg tablet 5 mg PO DAILY High blood pressure 08/12/22 08/12/22 History pantoprazole 40 mg tablet,delayed 40 mg PO DAILY Acid reflux 08/12/22 08/12/22 History release
[2022-08-12 14:12] LABS: ABG Base Excess 7.9 mmol/L (-2.4-2.3); ABG HCO3 33.9 mmhg (22.0-26.0); ABG Oxygen Saturation 94 % (90-100); ABG PH 7.33 mmol/L (7.35-7.45); ABG PO2 72.9 mmhg (80-100); ABG TCO2 35.9 mmhg (23-27)
[2022-08-12 14:14] LABS: Oxygen 100% %; Source Right Brachial
--- NOTE | 2022-08-12 14:24 | EXP.PULM.CON ---
History of Present Illness History of present illness: Ms. Flores is a 66-year-old male current smoker greater than [id number] smoking history carries a diagnosis of COPD on Trelegy 100 inhaler, chronic hypoxic respiratory failure using 3 to 4 L oxygen at baseline presents with worsening respiratory distress for the last 3 to 4 days and upon presentation the patient appeared to be in severe respiratory distress needing high flow NC oxygen Supplementation pulmonary was called for further evaluation. [facility] Disclaimer: The information contained in this section may have been updated after the patient was seen, as this information can be updated by other users. Medical History (Updated 08/12/22 @ 14:47 by Bryan Ramirez MD) Alcohol use disorder, severe, in early remission CAP (community acquired pneumonia) COPD (chronic obstructive pulmonary disease) Hyperlipidemia Hypertension Tobacco dependence Surgical History (Updated 08/12/22 @ 13:58 by Patricio Hernandez MD) History of colonoscopy Family History (Updated 08/12/22 @ 13:59 by Patricio Hernandez MD) Mother Lung cancer Father COPD (chronic obstructive pulmonary disease) Social History (Updated 08/12/22 @ 13:55 by Rosalia Tuttle RN) Smoking Status: Current every day smoker tobacco type: cigarettes packs per day: 2 second hand exposure: No alcohol intake: current current occupational status: disabled Travel in the last 8 weeks: None household members: significant other caffeine: No Review of Systems Constitutional Constitutional: Reports fatigue and Reports weakness Eyes Eyes: Denies eye discharge, Denies dry eyes, Denies irritation and Denies itchy eyes ENT Ears, Nose, Mouth, and Throat: Denies epistaxis, Denies facial pain, Denies lip swelling and Denies throat swelling *Cardiovascular Cardiovascular: Reports dyspnea and Reports dyspnea on exertion *Respiratory Respiratory: Reports chest congestion, Reports cough, Reports dyspnea, Reports dyspnea on exertion, Reports excessive phlegm production and Reports wheezing *Gastrointestinal Gastrointestinal: Denies abdominal pain, Denies belching and Denies cramping *Musculoskeletal Musculoskeletal: Reports back pain, Reports myalgias and Reports other (No small joint swelling or Pain) *Neurologic Neurologic: Denies abnormal speech, Denies confusion, Denies convulsions and Reports weakness Psychiatric Psychiatric: Denies confusion Endocrine Endocrine: Reports fatigue and Denies heat intolerance Hematologic/Lymphatic Hematologic/Lymphatic: Denies easy bleeding and Denies lymphadenopathy Allergic/Immunologic Allergic/Immunologic: Denies itchy eyes, Denies lip swelling, Denies throat swelling and Reports wheezing Pulmonology Exam Inpatient Vital signs and Labs for Last 24 Hours: Temp Pulse Resp BP Pulse Ox FiO2 97.4 F L 94 H 20 170/74 H 95 45 08/12/22 13:52 08/12/22 13:52 08/12/22 13:52 08/12/22 13:52 08/12/22 13:52 08/12/22 13:00 Laboratory Results - last 24 hr 08/12/22 10:31: WBC 11.2 H, RBC 4.03 L, Hgb 13.9 L, Hct 43.2, MCV 107.3 H, MCH 34.4 H, MCHC 32.1, RDW 13.3, Plt Count 369, MPV 8.1, Neut % (Auto) 80.6 H, Lymph % (Auto) 13.8, [place] % (Auto) 4.9, Eos % (Auto) 0.4, Baso % (Auto) 0.3, Neut # (Auto) 9.0 H, Lymph # (Auto) 1.6, [place] # (Auto) 0.5, Eos # (Auto) 0.0, Baso # (Auto) 0.0 08/12/22 10:31: Sodium 145, Potassium 2.9 L*, Chloride 91 L, Carbon Dioxide 41 H*, Anion Gap 15.9 H, BUN 24 H, Creatinine 1.10, Estimated Creat Clear 68, Estimated GFR 67, Est GFR ( Amer) 81, Glucose 129 H, Calcium 8.9, Total Bilirubin 0.6, AST 34, ALT 26, Alkaline Phosphatase 127 H, C-Reactive Protein 145.7 H, NT-Pro-B Natriuret Pep 1520 H, Total Protein 7.0, Albumin 3.7, Globulin 3.3 H, Albumin/Globulin Ratio 1.1, Procalcitonin 0.301 08/12/22 10:31: Plasma/Serum Alcohol < 10 08/12/22 10:56: SARS-CoV-2 (PCR) Not detected, Influenza A Untype (PCR) Not detected, Influenza Type B (PCR) Not detected
[2022-08-12 17:22] LABS: Troponin I < 0.01 ng/ml (0.00-0.034)
[2022-08-12 18:16] LABS: ABG Base Excess 7.6 mmol/L (-2.4-2.3); ABG HCO3 31.9 mmhg (22.0-26.0); ABG Oxygen Saturation 97 % (90-100); ABG PCO2 49.2 mmhg (35.0-45.0); ABG PH 7.43 mmol/L (7.35-7.45); ABG PO2 92.8 mmhg (80-100); ABG TCO2 33.4 mmhg (23-27)
[2022-08-12 18:17] LABS: Allen's Test Acceptable; Source Right Radial
[2022-08-12 20:35] LABS: Troponin I < 0.01 ng/ml (0.00-0.034)
[2022-08-12 23:26] LABS: Troponin I < 0.01 ng/ml (0.00-0.034)
[2022-08-13] VITALS (13 sets, daily range): BP systolic 114–160; BP diastolic 63–88; PULSE 66–93; RESP 20–24; TEMP 36.3–37; O2SAT 95–99; BMI 25.1
--- NOTE | 2022-08-13 04:29 | PC.NURSE ---
Patient has titrated down on Vapotherm to 20L FiO2 30% with O2 sats >90%. Patient lungs clear and diminished in BL lower bases. Had just finished breathing treatment when assessment was done. No edema noted. ABX therapy continued. Afebrile.
--- NOTE | 2022-08-13 05:45 | PC.NURSE ---
Notified RT pt was sustaining 86-89% o2 sat. RT titrated vapotherm to 30L, 30%, o2 maintaining >90%
[2022-08-13 07:41] LABS: Basophils % 0.1 % (0.1-2.0); Eosinophils % 0.2 % (0.1-12.0); Hematocrit 39.6 % (42.0-52.0); Hemoglobin 13.1 g/dL (14.1-18.0); Lymphocytes # 0.6 K/mm3 (0.7-4.5); Mean Corpuscular Hemoglobin 34.7 pg (27.0-31.2); Mean Corpuscular Volume 105.1 fl (80-94); Mean Platelet Volume 8.1 fl (7.4-10.4); Monocytes # 0.4 K/mm3 (0.1-1.0); Monocytes % 4.6 % (1.7-9.3); Neutrophils # 6.6 K/mm3 (1.8-7.8); Neutrophils % 87.1 % (37.0-80.0); Platelet Count 334 K/mm3 (142-424); Red Blood Count 3.77 M/mm3 (4.60-6.20); Red Cell Distribution Width 13.2 % (11.5-17.5); White Blood Count 7.6 K/mm3 (4.8-10.8)
[2022-08-13 07:44] LABS: Anion Gap 10.4 mEq/L (5-15); Blood Urea Nitrogen 23 mg/dl (9-20); Calcium 8.8 mg/dl (8.4-10.2); Carbon Dioxide 38 mmol/L (22.0-30.0); Chloride 97 mmol/L (98-107); Creatinine Clearance Estimated 77 mL/min (50-200); Estimated Glomerular Filt Rate 97 ml/min (>60); GFR (African American) 117 ML/MIN (>60); Glucose 110 mg/dl (74-100); Magnesium 2.4 mg/dl (1.6-2.3); Potassium 3.4 mmoL/L (3.5-5.1); Sodium 142 mmol/L (136-145)
[2022-08-13 08:05] LABS: MANUAL DIFFERENTIAL MANUAL DIFFERENTIAL (MANUAL DIFF)
--- NOTE | 2022-08-13 08:32 | EXP.PN ---
Subjective *Date: 08/13/22 *Time: 08:32 Interval history: Date of service August 13, 2022 The patient reports no acute events overnight. He tolerated his oxygen therapy with no adverse events. Nursing staff report that he remains afebrile with improved heart rates, improved blood pressures and respiratory rates. He is saturating appropriately on his current oxygen requirement which is at 35 L with FiO2 50%. We have reviewed, discussed and I have personally interpreted his morning labs and imaging as follows: His CBC identifies a resolved leukocytoses with stable hemoglobin and platelet count. His evening ABG identified and improved PCO2 and PO2. His electrolyte panel identified and improved potassium and normal creatinine. His glucose trend is under 150. CT of his chest identifies emphysema and bronchiolitis. Exam Data for Last 24 hours Vital signs and Labs for Last 24 Hours: Temp Pulse Resp BP Pulse Ox FiO2 97.6 F 93 H 20 125/88 99 50 08/13/22 07:56 08/13/22 07:56 08/13/22 07:56 08/13/22 07:56 08/13/22 07:56 08/13/22 07:25 Laboratory Results - last 24 hr 08/12/22 10:31: WBC 11.2 H, RBC 4.03 L, Hgb 13.9 L, Hct 43.2, MCV 107.3 H, MCH 34.4 H, MCHC 32.1, RDW 13.3, Plt Count 369, MPV 8.1, Neut % (Auto) 80.6 H, Lymph % (Auto) 13.8, [place] % (Auto) 4.9, Eos % (Auto) 0.4, Baso % (Auto) 0.3, Neut # (Auto) 9.0 H, Lymph # (Auto) 1.6, [place] # (Auto) 0.5, Eos # (Auto) 0.0, Baso # (Auto) 0.0 08/12/22 10:31: Sodium 145, Potassium 2.9 L*, Chloride 91 L, Carbon Dioxide 41 H*, Anion Gap 15.9 H, BUN 24 H, Creatinine 1.10, Estimated Creat Clear 68, Estimated GFR 67, Est GFR ( Amer) 81, Glucose 129 H, Calcium 8.9, Total Bilirubin 0.6, AST 34, ALT 26, Alkaline Phosphatase 127 H, C-Reactive Protein 145.7 H, NT-Pro-B Natriuret Pep 1520 H, Total Protein 7.0, Albumin 3.7, Globulin 3.3 H, Albumin/Globulin Ratio 1.1, Procalcitonin 0.301 08/12/22 10:31: Plasma/Serum Alcohol < 10 08/12/22 10:56: SARS-CoV-2 (PCR) Not detected, Influenza A Untype (PCR) Not detected, Influenza Type B (PCR) Not detected 08/12/22 11:06: VBG pH 7.29 L, VBG pCO2 76.0 H, VBG pO2 41.1 H, VBG HCO3 36.0 H, VBG Total CO2 38.3 H, VBG O2 Saturation 72.2 H, VBG Base Excess 9.4 H 08/12/22 13:52: Specimen Source Right brachial, O2 % 100%, ABG pH 7.33 L, ABG pCO2 66.0 H, ABG pO2 72.9 L, ABG HCO3 33.9 H, ABG Total CO2 35.9 H, ABG O2 Saturation 94, ABG Base Excess 7.9 H 08/12/22 16:40: Troponin I < 0.01 08/12/22 18:00: Specimen Source Right radial, O2 % vapo 30l 40%, ABG pH 7.43, ABG pCO2 49.2 H, ABG pO2 92.8, ABG HCO3 31.9 H, ABG Total CO2 33.4 H, ABG O2 Saturation 97, ABG Base Excess 7.6 H, Sukumar Test Acceptable 08/12/22 19:35: Troponin I < 0.01 08/12/22 22:50: Troponin I < 0.01 08/13/22 06:45: WBC 7.6 D, RBC 3.77 L, Hgb 13.1 L, Hct 39.6 L, MCV 105.1 H, MCH 34.7 H, MCHC 33.0, RDW 13.2, Plt Count 334, MPV 8.1, Neut % (Auto) 87.1 H, Lymph % (Auto) 8.0 L, [place] % (Auto) 4.6, Eos % (Auto) 0.2, Baso % (Auto) 0.1, Neut # (Auto) 6.6, Lymph # (Auto) 0.6 L, [place] # (Auto) 0.4, Eos # (Auto) 0.0, Baso # (Auto) 0.0 08/13/22 06:45: Sodium 142, Potassium 3.4 L, Chloride 97 L, Carbon Dioxide 38 H, Anion Gap 10.4, BUN 23 H, Creatinine 0.80 D, Estimated Creat Clear 77, Estimated GFR 97, Est GFR ( Amer) 117 D, Glucose 110 H, Calcium 8.8, Magnesium 2.4 H I & O for Last 24 hours: Intake & Output 08/10/22 08/11/22 08/12/22 08/13/22 23:59 23:59 23:59 23:59 Intake Total 360 / 360 250 / 250 Output Total 300 / 300 Balance 360 / 360 -50 / -50 Weight 73.113 kg 75.251 kg Constitutional Constitutional: no acute distress, chronically ill appearing and cooperative *Routine HEENT Exam Head: Present normocephalic Eye: Present EOMI and PERRL ENT: Present mucous membranes moist *Routine Neck Exam Neck: Present supple; Absent JVD or lymphadenopathy *Routine Respiratory Exam Respiratory: Present rhonchi, wheezes, normal respiratory effort and symmetric chest movement; Absent respiratory distress *Rou
[2022-08-13 08:33] LABS: Vitamin B12 819 pg/mL (239-931)
[2022-08-13 09:34] LABS: Lymphocytes % 9 % (10-50); Monocytes % 4 % (2-9); Neutrophils % 87 % (42-76); Total Cells Counted 100
[2022-08-13 09:35] LABS: Macrocytosis 1+; Platelet Estimate Normal
--- NOTE | 2022-08-13 16:39 | PC.NURSE ---
VAPOTHERM TITRATED PER PT ABLILITY TO TOLERATE. O2 SATS MAINTAINED >95%. CURRENT SETTING 25LPM AT 35% FIO2. DECREASED APPETITE THIS SHIFT. URINAL AND BSC FOR ELIMINATION. STILL LABORED BREATHING AT TIMES. NEW 20 GAUGE IV INSERTED TO RAC.
--- NOTE | 2022-08-13 20:50 | PC.NURSE ---
Gave pt specimen cup and instructed we needed a sputum sample and to call out when able to provide one so we could send to lab. Pt verbalized understanding. Specimen cup left on bedside table.
[2022-08-14] VITALS (12 sets, daily range): BP systolic 106–125; BP diastolic 58–76; PULSE 63–104; RESP 16–22; TEMP 36.6–36.7; O2SAT 93–100; BMI 25.1
--- NOTE | 2022-08-14 04:59 | PC.NURSE ---
PATIENT C/O SOA. 02 SAT 83 % ON 15L WITH 30% Fi02. EXPIRATORY WHEEZES THROUGHOUT BEFORE BUT MORE PRONOUNCED. R.T. NOTIFIED AND TO ADMINISTER NEB TREATMENT. PATIENT WAS INCONTINENT SMALL AMT OF LIQ BROWN STOOL AND HAD BECOME UPSET AND ANXIOUS OVER HIS ACCIDENT LEADING UP TO HIS RESP EPISODE.
--- NOTE | 2022-08-14 05:34 | PC.NURSE ---
Leena TREATED PATIENT WITH NEBS AND ADJUSTED HIS 0XYGEN TO 20 L AMD 30%FiO2. CURRENT SAT READING IS 98%.
[2022-08-14 07:13] LABS: Basophils % 0.1 % (0.1-2.0); Eosinophils % 0.3 % (0.1-12.0); Hematocrit 36.7 % (42.0-52.0); Hemoglobin 11.7 g/dL (14.1-18.0); Lymphocytes # 0.4 K/mm3 (0.7-4.5); Lymphocytes % 5.6 % (10-50); Mean Corpuscular HGB Conc 31.7 g/dL (31.8-35.4); Mean Corpuscular Hemoglobin 34.1 pg (27.0-31.2); Mean Corpuscular Volume 107.3 fl (80-94); Mean Platelet Volume 8.3 fl (7.4-10.4); Monocytes # 0.2 K/mm3 (0.1-1.0); Monocytes % 2.9 % (1.7-9.3); Platelet Count 301 K/mm3 (142-424); Red Blood Count 3.42 M/mm3 (4.60-6.20); Red Cell Distribution Width 13.3 % (11.5-17.5); White Blood Count 6.6 K/mm3 (4.8-10.8)
[2022-08-14 07:33] LABS: MANUAL DIFFERENTIAL MANUAL DIFFERENTIAL (MANUAL DIFF)
[2022-08-14 07:41] LABS: Chloride 103 mmol/L (98-107)
[2022-08-14 07:42] LABS: Potassium 4.4 mmoL/L (3.5-5.1); Sodium 142 mmol/L (136-145)
[2022-08-14 07:44] LABS: Blood Urea Nitrogen 30 mg/dl (9-20); Creatinine Clearance Estimated 77 mL/min (50-200); Estimated Glomerular Filt Rate 113 ml/min (>60); GFR (African American) 137 ML/MIN (>60)
[2022-08-14 07:45] LABS: Anion Gap 13.4 mEq/L (5-15); Calcium 8.2 mg/dl (8.4-10.2); Carbon Dioxide 30 mmol/L (22.0-30.0); Glucose 106 mg/dl (74-100)
[2022-08-14 09:07] LABS: NT Pro Brain Natriuretic Pep. 10900 pg/mL (0-125)
--- NOTE | 2022-08-14 10:44 | EXP.PN ---
Subjective *Date: 08/14/22 *Time: 10:44 Interval history: Date of service August 14, 2022 The patient reports no acute events overnight. He reports that his dyspnea has significantly improved. Nursing staff report that he remains afebrile with stable vital signs and is now down to nasal cannula oxygen 6 L. His morning labs have been reviewed, discussed and personally interpreted as follows: WBC normal 6.6, hemoglobin 11.7, hematocrit 37, platelet count 301. His electrolytes are normal BUN is 30 and creatinine 0.7. Glucose trend is under 125. Exam Data for Last 24 hours Vital signs and Labs for Last 24 Hours: Temp Pulse Resp BP Pulse Ox FiO2 97.9 F 94 H 20 117/69 99 30 08/14/22 07:08 08/14/22 10:05 08/14/22 07:08 08/14/22 08:39 08/14/22 10:06 08/14/22 10:06 Laboratory Results - last 24 hr 08/14/22 06:56: WBC 6.6, RBC 3.42 L, Hgb 11.7 L, Hct 36.7 L, MCV 107.3 H, MCH 34.1 H, MCHC 31.7 L, RDW 13.3, Plt Count 301, MPV 8.3, Neut % (Auto) 91.0 H, Lymph % (Auto) 5.6 L, [place] % (Auto) 2.9, Eos % (Auto) 0.3, Baso % (Auto) 0.1, Neut # (Auto) 6.0, Lymph # (Auto) 0.4 L, [place] # (Auto) 0.2, Eos # (Auto) 0.0, Baso # (Auto) 0.0 08/14/22 06:56: Sodium 142, Potassium 4.4 D, Chloride 103, Carbon Dioxide 30, Anion Gap 13.4, BUN 30 H D, Creatinine 0.70, Estimated Creat Clear 77, Estimated GFR 113, Est GFR ( Amer) 137, Glucose 106 H, Calcium 8.2 L 08/14/22 06:56: NT-Pro-B Natriuret Pep 01164 H I & O for Last 24 hours: Intake & Output 08/11/22 08/12/22 08/13/22 08/14/22 23:59 23:59 23:59 23:59 Intake Total 360 / 360 1280 / 1530 883 / 883 Output Total 900 / 1000 400 / 400 Balance 360 / 360 380 / 530 483 / 483 Weight 73.113 kg 75.251 kg 75.252 kg Constitutional Constitutional: no acute distress, chronically ill appearing and cooperative *Routine HEENT Exam Head: Present normocephalic Eye: Present EOMI and PERRL ENT: Present mucous membranes moist *Routine Neck Exam Neck: Present supple; Absent JVD or lymphadenopathy *Routine Respiratory Exam Respiratory: Present rhonchi, wheezes, normal respiratory effort and symmetric chest movement; Absent respiratory distress *Routine Cardiovascular Exam Cardiovascular: Present RRR *Routine Abdominal Exam Abdominal: Present soft and normoactive bowel sounds; Absent tenderness *Routine Extremities Exam Extremities: Present full ROM, pulses intact and normal capillary refill; Absent cyanosis, clubbing or edema *Routine Skin Exam Skin: Present warm; Absent rash *Routine Neurological Exam Neurological: Present alert, oriented X3, moving all extremities, vision grossly intact, hearing grossly intact and normal speech; Absent sensory deficit or motor deficit Routine Psychiatric Exam Psychiatric: Present normal affect, normal thought process, cooperative, good insight and good judgment Assessment and Plan *Assessment and plan (1) Acute on chronic respiratory failure with hypoxia and hypercapnia: Status: Acute Category: Medical Code(s): J96.21 - Acute and chronic respiratory failure with hypoxia; J96.22 - Acute and chronic respiratory failure with hypercapnia (2) Acute heart failure with preserved ejection fraction (HFpEF): Status: Acute Category: Medical Code(s): I50.31 - Acute diastolic (congestive) heart failure (3) Alcohol use disorder, severe, in early remission: Status: Acute Category: Medical Code(s): F10.21 - Alcohol dependence, in remission (4) Tobacco dependence: Status: Acute Category: Medical Code(s): F17.200 - Nicotine dependence, unspecified, uncomplicated Plan This is a 66-year-old male with previous diagnoses of COPD and abnormal CT scan of the chest 2020 who presents with dyspnea over a period of 1 week. He reports no previous pulmonology consultation. His only home inhaler medication is albuterol. He continues to smoke cigarettes but he has discontinued routine alcohol use over 1-1/2 month
[2022-08-14 11:22] LABS: Lymphocytes % 5 % (10-50); Macrocytosis 2+; Monocytes % 1 % (2-9); Neutrophils % 94 % (42-76); Platelet Estimate Normal; Total Cells Counted 100
--- NOTE | 2022-08-14 11:47 | PC.NURSE ---
pt is on 4lnc. he is tolerating it well. saturation has remained >95%
--- NOTE | 2022-08-14 14:06 | PC.NURSE ---
pt has done well this shift. Just received a bath from nursing. he is tolerating 4lnc. gets SOA with exertion.
[2022-08-15] VITALS: BP 124/68; PULSE 66; RESP 16; TEMP 36.7; O2SAT 96
[2022-08-15 04:00] VITALS: BP 132/80; PULSE 73; RESP 16; TEMP 36.6; O2SAT 98; BMI 24.6
[2022-08-15 06:21] VITALS: PULSE 58; PULSE 60; O2SAT 100
[2022-08-15 06:37] LABS: Eosinophils % 0.5 % (0.1-12.0); Hematocrit 38.9 % (42.0-52.0); Hemoglobin 12.4 g/dL (14.1-18.0); Lymphocytes # 0.3 K/mm3 (0.7-4.5); Lymphocytes % 4.4 % (10-50); Mean Corpuscular HGB Conc 31.8 g/dL (31.8-35.4); Mean Corpuscular Hemoglobin 34.4 pg (27.0-31.2); Mean Corpuscular Volume 108.3 fl (80-94); Mean Platelet Volume 8.4 fl (7.4-10.4); Monocytes # 0.3 K/mm3 (0.1-1.0); Monocytes % 3.8 % (1.7-9.3); Neutrophils # 6.6 K/mm3 (1.8-7.8); Neutrophils % 91.3 % (37.0-80.0); Platelet Count 306 K/mm3 (142-424); Red Blood Count 3.59 M/mm3 (4.60-6.20); Red Cell Distribution Width 13.2 % (11.5-17.5); White Blood Count 7.2 K/mm3 (4.8-10.8)
[2022-08-15 06:41] LABS: MANUAL DIFFERENTIAL MANUAL DIFFERENTIAL (MANUAL DIFF)
[2022-08-15 06:47] LABS: Anion Gap 9.6 mEq/L (5-15); Blood Urea Nitrogen 28 mg/dl (9-20); Calcium 8.3 mg/dl (8.4-10.2); Carbon Dioxide 39 mmol/L (22.0-30.0); Chloride 100 mmol/L (98-107); Creatinine Clearance Estimated 76 mL/min (50-200); Estimated Glomerular Filt Rate 113 ml/min (>60); GFR (African American) 137 ML/MIN (>60); Glucose 104 mg/dl (74-100); Potassium 3.6 mmoL/L (3.5-5.1); Sodium 145 mmol/L (136-145)
[2022-08-15 07:25] VITALS: BP 124/68; PULSE 66; RESP 22; TEMP 36.5; O2SAT 97
[2022-08-15 08:03] LABS: Lymphocytes % 5 % (10-50); Monocytes % 3 % (2-9); Neutrophils % 92 % (42-76); Total Cells Counted 100
[2022-08-15 08:04] LABS: Hypochromasia 1+; Macrocytosis 2+; Platelet Estimate Normal
[2022-08-15 08:42] VITALS: BMI 24.6
--- NOTE | 2022-08-15 08:43 | P.PN_ITS ---
Subjective *Date: 08/15/22 *Time: 08:43 Medical Exam Vital signs and Labs for Last 24 Hours: Vital Signs Temp Pulse Pulse Resp BP Pulse Ox FiO2 08/15/22 07:25 97.7 F 66 22 124/68 97 08/15/22 06:21 58 L 08/15/22 06:21 60 08/15/22 06:21 100 08/15/22 04:00 98 F 73 16 132/80 98 08/15/22 00:00 98.1 F 66 16 124/68 96 08/14/22 20:00 98 F 68 16 122/64 96 08/14/22 19:04 36 08/14/22 19:03 73 08/14/22 19:03 71 08/14/22 15:38 97.9 F 70 20 120/60 99 08/14/22 13:03 69 08/14/22 13:03 70 08/14/22 13:03 99 08/14/22 11:20 98.0 F 63 20 106/72 L 100 08/14/22 10:06 99 30 08/14/22 10:05 94 H 08/14/22 10:05 96 H Intake and Output 08/14/22 08/15/22 08/15/22 23:59 07:59 15:59 Intake Total 0 / 1123 120 / 120 Output Total 800 / 800 Balance 0 / 223 -680 / -680 Intake: Intake, Oral Amount 0 / 480 120 / 120 Output: Output, Urine Amount 800 / 800 Other: Number of Unmeasured Voids 0 Weight 73.845 kg Patient Weight 08/15/22 23:59 Weight 73.845 kg Laboratory Results - last 24 hr 08/14/22 06:56: Total Counted 100, Neutrophils % (Manual) 94 H, Lymphocytes % (Manual) 5 L, Monocytes % (Manual) 1 L, Platelet Estimate Normal, Macrocytosis 2+ 08/14/22 06:56: NT-Pro-B Natriuret Pep 50323 H 08/15/22 05:48: WBC 7.2, RBC 3.59 L, Hgb 12.4 L, Hct 38.9 L, MCV 108.3 H, MCH 34.4 H, MCHC 31.8, RDW 13.2, Plt Count 306, MPV 8.4, Neut % (Auto) 91.3 H, Lymph % (Auto) 4.4 L, Stan[place] % (Auto) 3.8, Eos % (Auto) 0.5, Baso % (Auto) 0.0 L, Neut # (Auto) 6.6, Lymph # (Auto) 0.3 L, Stanly # (Auto) 0.3, Eos # (Auto) 0.0, Baso # (Auto) 0.0, Total Counted 100, Neutrophils % (Manual) 92 H, Lymphocytes % (Manual) 5 L, Monocytes % (Manual) 3, Platelet Estimate Normal, Hypochromasia 1+, Macrocytosis 2+ 08/15/22 05:48: Sodium 145, Potassium 3.6, Chloride 100, Carbon Dioxide 39 H, Anion Gap 9.6, BUN 28 H, Creatinine 0.70, Estimated Creat Clear 76, Estimated GFR 113, Est GFR ( Amer) 137, Glucose 104 H, Calcium 8.3 L I & O for Labs for Last 24 Hours: Intake & Output 08/12/22 08/13/22 08/14/22 08/15/22 23:59 23:59 23:59 23:59 Intake Total 360 / 360 1280 / 1530 1123 / 1123 120 / 120 Output Total 900 / 1000 900 / 900 800 / 800 Balance 360 / 360 380 / 530 223 / 223 -680 / -680 Weight 73.113 kg 75.251 kg 75.252 kg 73.845 kg Microbiology Reports for the Last 24 Hours: Microbiology 08/12/22 10:30 Blood - Other Blood Culture - Preliminary NO GROWTH AFTER 48 HOURS 08/12/22 10:37 Blood - Other Blood Culture - Preliminary NO GROWTH AFTER 48 HOURS The patient's infection will respond to the chosen ABx?: Yes (BLOOD CULTURE NO GROWTH, SPUTUM UNCOLLECTED.) Is the patient receiving the right drug, dose, and route?: Yes Could a more targeted ABx be ordered?: No
--- NOTE | 2022-08-15 09:39 | EXP.PULM.PN ---
Subjective *Date: 08/15/22 *Time: 13:05 Interval history: No acute respiratory events over the weekend. Patient admits continued improvement in his respiratory symptoms Pulmonology Exam Inpatient Vital signs and Labs for Last 24 Hours: Temp Pulse Resp BP Pulse Ox FiO2 97.7 F 66 22 124/68 97 36 08/15/22 07:25 08/15/22 07:25 08/15/22 07:25 08/15/22 07:25 08/15/22 07:08/14/22 19:04 Laboratory Results - last 24 hr 08/14/22 06:56: Total Counted 100, Neutrophils % (Manual) 94 H, Lymphocytes % (Manual) 5 L, Monocytes % (Manual) 1 L, Platelet Estimate Normal, Macrocytosis 2+ 08/14/22 06:56: NT-Pro-B Natriuret Pep 57194 H 08/15/22 05:48: WBC 7.2, RBC 3.59 L, Hgb 12.4 L, Hct 38.9 L, MCV 108.3 H, MCH 34.4 H, MCHC 31.8, RDW 13.2, Plt Count 306, MPV 8.4, Neut % (Auto) 91.3 H, Lymph % (Auto) 4.4 L, [place] % (Auto) 3.8, Eos % (Auto) 0.5, Baso % (Auto) 0.0 L, Neut # (Auto) 6.6, Lymph # (Auto) 0.3 L, [place] # (Auto) 0.3, Eos # (Auto) 0.0, Baso # (Auto) 0.0, Total Counted 100, Neutrophils % (Manual) 92 H, Lymphocytes % (Manual) 5 L, Monocytes % (Manual) 3, Platelet Estimate Normal, Hypochromasia 1+, Macrocytosis 2+ 08/15/22 05:48: Sodium 145, Potassium 3.6, Chloride 100, Carbon Dioxide 39 H, Anion Gap 9.6, BUN 28 H, Creatinine 0.70, Estimated Creat Clear 76, Estimated GFR 113, Est GFR ( Amer) 137, Glucose 104 H, Calcium 8.3 L I & O for Labs for Last 24 Hours: Intake & Output 08/12/22 08/13/22 08/14/22 08/15/22 23:59 23:59 23:59 23:59 Intake Total 360 / 360 1280 / 1530 1123 / 1123 120 / 120 Output Total 900 / 1000 900 / 900 800 / 800 Balance 360 / 360 380 / 530 223 / 223 -680 / -680 Weight 161 lb 3 oz 165 lb 14.4 oz 165 lb 14.436 oz 162 lb 11.218 oz Microbiology Reports for the Last 24 Hours: Microbiology 08/12/22 10:30 Blood - Other Blood Culture - Preliminary NO GROWTH AFTER 48 HOURS 08/12/22 10:37 Blood - Other Blood Culture - Preliminary NO GROWTH AFTER 48 HOURS Constitutional: Present mild distress Head: Present normocephalic and atraumatic ENT: Present normal exam, normal oropharynx and mucous membranes moist Neck: Present normal inspection and full ROM Respiratory: Present wheezes and able to speak in complete sentences; Absent respiratory distress Cardiac: Present S1/S2, Tachycardia and radial pulses present GI: Present soft and distention; Absent tenderness or guarding Skin: Present intact; Absent cyanosis or jaundice Neuro: Present alert, awake and oriented x 3 Extremities: Present normal inspection; Absent clubbing or cyanosis Psychiatric: Present normal affect and cooperative Assessment and Plan *Assessment and plan (1) Acute on chronic respiratory failure with hypoxia and hypercapnia: Status: Acute Category: Medical Code(s): J96.21 - Acute and chronic respiratory failure with hypoxia; J96.22 - Acute and chronic respiratory failure with hypercapnia (2) Acute exacerbation of chronic obstructive airways disease: Status: Acute Category: Medical Code(s): J44.1 - Chronic obstructive pulmonary disease with (acute) exacerbation (3) CAP (community acquired pneumonia): Status: Acute Category: Medical Code(s): J18.9 - Pneumonia, unspecified organism Plan #Acute on chronic hypoxic hypercarbic respiratory failure: #COPD exacerbation: #Community-acquired pneumonia: Ms. Flores is a 66-year-old male current smoker greater than [id number] smoking history carries a diagnosis of COPD on Trelegy 100 inhaler, chronic hypoxic respiratory failure using 3 to 4 L oxygen at baseline presents with worsening respiratory distress for the last 3 to 4 days and upon presentation the patient appeared to be in severe respiratory distress needing high flow NC oxygen Supplementation and pulmonary was called for further evaluation. CT chest WO from this admission reviewed, no dense consolidations or significant airspace d
--- NOTE | 2022-08-15 10:17 | HMH.PTEV ---
Physical Therapy Evaluation Rehab PT IP Evaluation Start: 08/15/22 06:00 Freq: ONCE Status: Active Protocol: Document 08/15/22 10:13 VIBHA (Rec: 08/15/22 10:17 VIBHA [id number]) Subjective/History History History 66 yowm adm to [facility] with COPD exac and PNA. He reports he lives with significant other, 1 step to enter the home, and he generally uses a motorized scooter for all mobility. He reports he uses 4L NC at all times at home. Subjective Subjective Pt reports no c/o this am, he feels better this am overall. Rehab PT IP Eval Objective Appearance Patient Behavior Appropriate Patient Orientation Person,Place,Time Difficulty following instructions none Speech Pattern Clear Ambulation Patient Able to Ambulate Yes Ambulation Observation IP General Gait Pattern Observation Wide Based Gait Ambulation Distance (feet) 3 Ambulation Assistive Device None Ambulation Ability Independent Balance Ability to Arise Able, uses arms to help Sitting Balance Steady, safe Standing Balance Steady, wide stance Dynamic Sitting Balance Ability Good Dynamic Standing Balance Ability Good Transfers Bed Transfer Ability Independent Chair Transfer Ability Independent Sit to Stand Bed Transfer Ability Independent Sit to Stand Chair Transfer Ability Independent ROM All Extremities PT ROM Status WFL MMT All Extremities PT MMT WFL Rehab PT IP prob,goals,plan Problems Date of Evaluation: 08/15/22 Discharge Plan PT Discharge Plan Pt appears to be at baseline, he generally needs frequent rest period due to oxygen status with COPD. He is appropriate to return home once medically stable. G -code Required No Eval Complexity Eval Charge Codes 19108 - Moderate Complexity PHYSICIAN CERTIFICATION: I certify the specified therapy services for Glynn Flores are required, authorized, and reviewed every 30 days.
--- NOTE | 2022-08-15 11:34 | EXP.DC.SUM ---
General Admission date:: 08/12/22 Discharge date: 08/15/22 HPI HPI HPI: This is a 66-year-old male who presents to [facility] emergency department for concerns of shortness of air. His past medical history significant for COPD, tobacco dependence and alcohol use disorder in remission. He is accompanied by his significant other of 16 years Alejandra Reyes who assists with the history. He reports approximately 1 week of shortness of air that has increased in severity. His shortness of air is now occurring at rest. He reports his home inhaler is not improving his symptomatology. He denies associated retrosternal chest pain, palpitations, dizziness, neurological changes, syncope or confusion. He reports an associated cough that is nonproductive. He denies associated hemoptysis. He reports routine care with Jana Armendariz in [facility]. In the ED diminished oxygen saturations on room air were noted. He required 30 L of oxygen via Airvo 45% FiO2 to maintain appropriate oxygen saturations. He completed several nebulizer treatments with some improvement. His chest imaging identified no acute disease and his labs identified hypokalemia and mild leukocytosis. His VBG PCO2 was 76. Hospital Course Hospital Course Hospital Course: This is a 66-year-old male with previous diagnoses of COPD and abnormal CT scan of the chest 2020 who presents with dyspnea over a period of 1 week.? He reports no previous pulmonology consultation.? His only home inhaler medication is albuterol.? He continues to smoke cigarettes but he has discontinued routine alcohol use over 1-1/2 months ago.? Problems addressed are as follows: Acute on chronic respiratory failure with hypoxia and hypercapnia COPD exacerbation Community Acquired pneumonia Initially presented with hypoxemia and hypercapnia. Pulmonology was consulted. Patient was initiated on high flow nasal cannula to maintain oxygen saturation greater 90%. Gradually weaned to nasal cannula oxygen, 2 L at time of discharge. Tolerating DuoNebs initially every 2 hours, transition to every 4-6 thereafter. Started on antibiotics including ceftriaxone and doxycycline on admission. Necessitating IV steroids. Showed gradual improvement clinically and was transition to oral antibiotics and steroids. Plan to complete 3 more days of oral prednisone 40 mg daily and 2 more days of oral Augmentin. Continue inhaler therapy. Start on Trelegy and continue at discharge. Overall showing improvement clinically. Stable for discharge home with close follow-up with pulmonology. Acute heart failure with preserved ejection fraction 2019 echo with EF 55% and grade 1 diastolic dysfunction. Repeat echo obtained this admission showing preserved ejection fraction greater than 55% and RVSP less than 35%. Continue regimen during admission including amlodipine pain, but soap wall, lisinopril HCTZ, and Crestor. No episodes of chest pain during admission. Troponins trended negative. Alcohol use disorder, severe in remission Initiated on thiamine replacement therapy and multivitamin supplementation at time of admission. Monitored for signs of withdrawal. Patient did well during hospitalization. B12 level normal. No withdrawal symptoms during hospitalization. Would recommend continuing a daily multivitamin [id number]. Tobacco dependence Tobacco cessation education. Nicotine replacement therapy Stable for discharge home. Continue supplemental oxygen at 2 L. Follow-up with pulmonology in the coming weeks. Exam Data for Last 24 hours Vital signs and Labs for Last 24 Hours: Temp Pulse Resp BP Pulse Ox FiO2 97.7 F 66 22 124/68 97 36 08/15/22 07:25 08/15/22 07:25 08/15/22 07:25 08/15/22 07:25 08/15/22 07:25 08/14/22 19:04 Laboratory Results - last 24 hr 08/15/22 05:48: WBC 7.2, RBC 3.59 L, Hgb 12.4 L, Hct 38.9 L, MCV 108.3 H, MCH 34.4 H, MCHC 31.8, RDW 13.2, Plt Count 306, MPV 8.4, Neut % (Auto)
--- NOTE | 2022-08-15 11:55 | HMH.PHAINT1 ---
Pharmacy Intervention Comments: DISCHARGE MEDICATION COUNSELING PROVIDED. DISCUSSED THE FOLLOWING NEW PRESCRIPTIONS: -AUGMENTIN (TAKE THREE TIMES DAILY, FOR INFECTION, TAKE WITH FOOD, N/V/D POSSIBLE) -PREDNISONE (TAKE DAILY, BEST IN THE MORNING WITH BREAKFAST, MAY CAUSE INSOMNIA, INCREASED HUNGER, UPSET STOMACH) PATIENT VERBALIZED NO QUESTIONS AT THIS TIME, BUT WAS ASKING FOR HIS OXYGEN TO BE TURNED UP ONE . I ADVISED PATIENT THAT I CANNOT DO THAT BUT WOULD FIND HIS NURSE. I RELAYED PATIENT'S WISES TO MARIAM MCMILLAN.
--- NOTE | 2022-08-16 15:17 | CARE MANAGER ---
Called and spoke with Mr. Flores, he states he is doing well. No complaints/concerns at time of call. He has picked up and started his new medication that was prescribed at discharge.
== END 2022-08-15 12:52 | disposition home or self-care (01) | DRG 189 ==
LOC: ER 11:15 → 2ND 12:52
PROVIDERS: Internal Medicine Pulmonary Disease; Admitting Provider Family Medicine; Emergency Provider Student in an Organized Health Care Education/Training Program; Visit Provider Family Medicine
DX: J96.20 Acute and chronic respiratory failure, unspecified whether with hypoxia or hypercapnia (principal); J18.9 Pneumonia, unspecified organism; I50.31 Acute diastolic (congestive) heart failure; J44.1 Chronic obstructive pulmonary disease with (acute) exacerbation; J44.0 Chronic obstructive pulmonary disease with (acute) lower respiratory infection; J96.21 Acute and chronic respiratory failure with hypoxia; F17.210 Nicotine dependence, cigarettes, uncomplicated; E78.5 Hyperlipidemia, unspecified; F10.21 Alcohol dependence, in remission; Z71.6 Tobacco abuse counseling; I11.0 Hypertensive heart disease with heart failure
CPT/HCPCS: 36415; 71045; 71250; 80048; 80053; 82607; 82803; 83735; 83880; 84145; 84484; 85007; 85025; 86140; 87040; 87070; 87205; 87636; 93005; 93306; 94640; 94760; 97162; 99285; C9803; J0696; J3475; U0003; U0005

== ENCOUNTER 2023-04-06 14:22 | Inpatient (IN) | payer MEDICARE, SELFPAY ==
[2023-04-06] VITALS (18 sets, daily range): BP systolic 67–183; BP diastolic 43–147; PULSE 86–127; RESP 20–39; TEMP 36.2–37.4; O2SAT 88–99; BMI 25.8
--- NOTE | 2023-04-06 14:18 | ECG_ITS ---
APPROVED REPORT Exam: Resting ECG HR:105 bpm ECG Measurements Heart Rate 105 AXES ND 138 P 80 QRSd 81 QRS 80 QT 306 T 79 QTc 367 Conclusion SINUS TACHYCARDIA ABNORMAL RHYTHM ECG UNCONFIRMED REPORT Electronically signed by : Donta Moyer MD 04/06/2023 20:29:43
--- NOTE | 2023-04-06 14:24 | XR_ITS ---
FINAL REPORT CLINICAL HISTORY: sob, copd COMPARISON: 08/12/2022 FINDINGS: SINGLE-VIEW CHEST The heart size is normal. The mediastinum is normal. There are mild bibasilar opacities, favor atelectasis or scar. The There is no pneumothorax. IMPRESSION: Bibasilar atelectasis or scar. Reviewed, Interpreted and Dictated by Kailash Fitch III, MD Transcribed by Kristy Campos Authenticated and [facility]
--- NOTE | 2023-04-06 14:25 | ED_ITS ---
Discharge Plan Disposition Patient Disposition: Admitted Chief Complaint: Shortness of Breath/Dyspnea Clinical Impressions Clinical Impression: Acute exacerbation of chronic obstructive pulmonary disease, Acute hypercapnic respiratory failure, RUBENS (acute kidney injury), Acute hyponatremia, Abnormal transaminases Discharge ED Provider: Berlin Means HPI <Berlin Means MD - Last Filed: 04/07/23 07:18> General Chief Complaint: Shortness of Breath/Dyspnea Stated Complaint: SOA Time Seen by Provider: 04/06/23 14:25 History of Present Illness HPI narrative: Patient is a 67-year-old male with past medical history of COPD on 4 L nasal cannula at baseline who presents emergency department for evaluation of shortness of breath. Onset was acute, over the last 4 days, progressive shortness of breath and associated cough. Patient denies substernal chest pain. He has been compliant with his home COPD regimen and takes a fluid pill. Per chart review patient also has a history of heart failure with preserved ejection fraction, chronic multi pack-year smoking history. Related Data Home Medications Medication Instructions Recorded Confirmed albuterol sulfate 90 mcg/actuation 1 - 2 puffs IH Q4HP PRN Shortness 03/24/20 04/06/23 aerosol inhaler Of Breath amlodipine 10 mg tablet 10 mg PO DAILY High blood pressure 03/24/20 04/06/23 escitalopram oxalate 20 mg tablet 20 mg PO DAILY mood 03/24/20 04/06/23 lisinopril 20 1 tab PO DAILY High blood pressure 03/24/20 04/06/23 mg-hydrochlorothiazide 12.5 mg tablet bisoprolol fumarate 5 mg tablet 5 mg PO DAILY High blood pressure 08/12/22 04/06/23 pantoprazole 40 mg tablet,delayed 40 mg PO DAILY Acid reflux 08/12/22 04/06/23 release rosuvastatin 10 mg tablet 10 mg PO HS Cholesterol 08/12/22 04/06/23 fluticasone fur. 100 mcg-umeclid 1 inh inhalation DAILY BREATHING 04/06/23 04/06/23 62.5 mcg-vilant 25 mcg ISSUES inhalat.powder (Trelegy Ellipta) furosemide 20 mg tablet 20 mg PO DIRECTED 04/06/23 04/06/23 ipratropium 20 mcg-albuterol 100 1 puff inhalation QID BREATHING 04/06/23 04/06/23 mcg/actuation mist for inhalation ISSUES (Combivent Respimat) Allergies Allergy/AdvReac Type Severity Reaction Status Date / Time erythromycin base Allergy Unknown NA-NAUSEA/V Verified 11/19/18 11:23 [ERYTHROMYCIN BASE] OMITING PFSH <Berlin Means MD - Last Filed: 04/07/23 07:18> PFSH Disclaimer: The information contained in this section may have been updated after the patient was seen, as this information can be updated by other users. Medical History (Updated 04/06/23 @ 16:07 by Nelly Sanchez MD) Alcohol use disorder, severe, in early remission CAP (community acquired pneumonia) COPD (chronic obstructive pulmonary disease) Hyperlipidemia Hypertension Obesity (BMI 30-39.9) Tobacco dependence Surgical History (Updated 08/12/22 @ 13:58 by Patricio Hernandez MD) History of colonoscopy Family History (Updated 08/12/22 @ 13:59 by Patricio Hernandez MD) Mother Lung cancer Father COPD (chronic obstructive pulmonary disease) Social History (Updated 08/12/22 @ 13:55 by Rosalia Tuttle RN) Smoking Status: Current every day smoker tobacco type: cigarettes packs per day: 2 second hand exposure: No alcohol intake: current current occupational status: disabled Travel in the last 8 weeks: None household members: significant other caffeine: No <Berlin Means MD - Last Filed: 04/07/23 07:18> ROS Obtained: Yes Systems reviewed as appropriate & no additional complaints except as documented Physical Exam <Berlin Means MD - Last Filed: 04/07/23 07:18> General General appearance: alert and in distress Head Head exam: atraumatic and normocephalic Eye Eye exam: Present PERRL and EOMI ENT ENT exam: Present mucous membranes moist Neck Neck exam: Present normal inspection Chest Chest inspection: Present normal inspection and symmetric chest wall rise Respiratory Respiratory exam: Present respiratory distress, wheezes, accessory muscle use and prolonged expiratory phase Cardiovascular Cardiovascular exam: Present normal rhythm and tachycardia Abdominal Exam Abdominal exam: Present soft; Absent tenderness Extremities Exam Extremities exam: Present normal inspection Neurological Exam Neurological exam: Present alert Psychiatric Psychiatric exam: Present normal affect Skin Skin exam: Present warm and dry HEART Score <Berlin Means MD - Last Filed: 04/07/23 07:18> HEART Score HEART Score assessment performed?: Yes History (anamnesis): Slightly suspicious ECG: Non-specific disturbance Age: >65 years Risk factors: 1-2 risk factors Troponin: </= normal limit HEART Score: 4 <Nelly Sanchez MD - Last Filed: 04/06/23 16:37> HEART Score HEART Score: 4 Procedures <Berlin Means MD - Last Filed: 04/07/23 07:18> Miscellaneous Procedure Procedure Performed: Indication: Shortness of breath Identified cardiac views: Cardiac apical 4 and subxiphoid. Findings: Cardiac activity present, gross wall motion normal, dilated right ventricle, grossly normal ejection fraction, no large pericardial effusion. Impression: Impression: From above Images were saved to apartment archive the study was technically adequate. CPT: 78065 This study was performed by me, and I personally interpreted all images/videos. Based on my clinical judgement, these images were [adequate/inadequate] and [did/did not] necessitate further imaging. Critical Care <Berlin Means MD - Last Filed: 04/07/23 07:18> Critical Care Time Critical Care Time: Yes Attestation: On 04/06/23, the high probability of a clinically significant, sudden or life threatening deterioration of the following system(s) required my full and direct attention, intervention and personal management. The time I documented below is in addition to time spent performing reported procedures but includes the following listed in this critical care notation. Total Time Total Critical Care Time: 35 Medical Decision Making <Berlin Means MD - Last Filed: 04/07/23 07:18> Abdias Inquiry Pt receiving controlled substance: No Vital Signs Vital Signs: 04/06/23 14:22 04/06/23 14:41 04/06/23 14:41 Temperature 97.2 F L Temperature Source Axillary Pulse Rate 111 H 105 H Pulse Rate [Right Radial] 110 H Respiratory Rate 35 H Blood Pressure Blood Pressure [Right Arm] 183/147 H Blood Pressure Mean Blood Pressure Mean [Right Arm] 159 02 Sat by Pulse Oximetry 94 L Oxygen Delivery Method Nasal Cannula Oxygen Flow Rate (LPM) 4 04/06/23 14:31 04/06/23 14:50 04/06/23 15:02 Temperature Temperature Source Pulse Rate 110 H 124 H 127 H Pulse Rate [Right Radial] Respiratory Rate 37 H 32 H 35 H Blood Pressure 80/51 L 123/76 120/62 Blood Pressure [Right Arm] Blood Pressure Mean 55 90 81 Blood Pressure Mean [Right Arm] 02 Sat by Pulse Oximetry 97 97 97 Oxygen Delivery Method Oxygen Flow Rate (LPM) 04/06/23 15:30 04/06/23 15:42 04/06/23 16:00 Temperature Temperature Source Pulse Rate 116 H 121 H 121 H Pulse Rate [Right Radial] Respiratory Rate 33 H 39 H 33 H Blood Pressure 76/51 L 88/50 L 84/44 L Blood Pressure [Right Arm] Blood Pressure Mean 59 54 48 Blood Pressure Mean [Right Arm] 02 Sat by Pulse Oximetry 96 97 97 Oxygen Delivery Method Oxygen Flow Rate (LPM) 04/06/23 16:03 04/06/23 16:08 04/06/23 16:19 Temperature Temperature Source Pulse Rate 118 H 114 H 116 H Pulse Rate [Right Radial] Respiratory Rate 29 H 28 H 30 H Blood Pressure 70/43 L 71/47 L 67/45 L Blood Pressure [Right Arm] Blood Pressure Mean 47 51 49 Blood Pressure Mean [Right Arm] 02 Sat by Pulse Oximetry 98 99 Oxygen Delivery Method Oxygen Flow Rate (LPM) Lab Data Lab results reviewed: Yes I reviewed the patient's lab results. Labs: Lab Results 04/06/23 14:11: Lactate 1.7 04/06/23 14:15: WBC 9.6, RBC 4.19 L, Hgb 14.2, Hct 42.3, MCV 100.9 H, MCH 33.8 H , MCHC 33.5, RDW 13.8, Plt Count 156, MPV 7.6, Neut % (Auto) 91.6 H, Lymph % (Auto) 4.2 L, [place] % (Auto) 3.6, Eos % (Auto) 0.2, Baso % (Auto) 0.3, Neut # (Auto) 8.8 H, Lymph # (Auto) 0.4 L, [place] # (Auto) 0.4, Eos # (Auto) 0.0, Baso # (Auto) 0.0, Total Counted 100, Neutrophils % (Manual) 93 H, Lymphocytes % (Manual) 4 L, Monocytes % (Manual) 2, Basophils % (Manual) 1.0, Platelet Estimate Normal, Macrocytosis 1+, Sodium 125 L, Potassium 4.8, Chloride 84 L, Carbon Dioxide 30, Anion Gap 15.8 H, BUN 29 H, Creatinine 1.80 H, Estimated Creat Clear 46, Estimated GFR 38 L, Est GFR ( Amer) 46 L, Glucose 106 H, Calcium 8.6, Total Bilirubin 0.5, AST 166 H, ALT 122 H, Alkaline Phosphatase 90, Troponin I < 0.01, NT-Pro-B Natriuret Pep 547 H, Total Protein 7.4, Albumin 4.3, Globulin 3.1, Albumin/Globulin Ratio 1.4 04/06/23 14:21: VBG pH 7.26 L, VBG pCO2 57.1 H, VBG pO2 35.0, VBG HCO3 25.2, VBG Total CO2 27.0, VBG O2 Saturation 63.0, VBG Base Excess -1.8 04/06/23 14:15 04/06/23 14:15 Response Orders (Tests/Meds): ED MEDICATIONS Generic Name Dose Route Start Last Admin Trade Name Freq PRN Reason Stop Dose Admin Iopamidol 100 ml 04/06/23 16:33 04/06/23 16:34 Iopamidol-370 (76%);100ml Bottle IV 04/06/23 16:34 100 ml ONCE ONE Administration Sodium Chloride 50 ml 04/06/23 16:33 04/06/23 16:34 0.9 % Sodium Chloride 50 Ml Vial IV 04/06/23 16:34 50 ml ONCE ONE Administration Sodium Chloride 10 ml 04/06/23 16:33 04/06/23 16:35 Sodium Chloride 0.9% 10ml Syr (Rad Only) IV 05/06/23 16:32 10 ml NEEDED PRN Administration Maintain IV Site Discontinued Medications Generic Name Dose Route Start Last Admin Trade Name Freq PRN Reason Stop Dose Admin Albuterol/Ipratropium 9 ml 04/06/23 14:21 04/06/23 14:30 Ipratropium/Albuterol 3 Ml Neb IH 04/06/23 14:22 9 ml ONCE ONE Administration Azithromycin 500 mg/ Sodium 250 mls @ 250 mls/hr 04/06/23 14:22 04/06/23 14:41 Chloride IV 04/06/23 14:23 250 mls/hr ONCE ONE Administration Lactated Ringer's 1,000 mls @ 999 mls/hr 04/06/23 14:45 04/06/23 15:15 Lactated Ringer's 1000 Ml Bag IV 04/06/23 15:45 999 mls/hr .Q1H1M ONE Administration Magnesium Sulfate 2 gm in 50 mls @ 50 mls/hr 04/06/23 15:15 04/06/23 15:57 Magnesium Sulfate 2gm/50ml Premix IV 04/06/23 16:14 50 mls/hr ONCE ONE Administration Ceftriaxone Sodium 1 gm/ 50 mls @ 100 mls/hr 04/06/23 15:15 04/06/23 15:21 Sodium Chloride IV 04/06/23 15:44 100 mls/hr ONCE ONE Administration Methylprednisolone Sodium Succinate 125 mg 04/06/23 14:21 04/06/23 14:38 Methylprednisolone Sod Succ 125mg Vial IV 04/06/23 14:22 125 mg ONCE ONE Administration ORDERS Category Date Time Status CT angio chest PE protocol Stat Cat Scan 04/06/23 15:15 Taken CXR --portable [XR chest portable] Stat Exams 04/06/23 14:24 Completed POCUS Point of Care (ER Only) Stat Exams 04/06/23 15:02 Taken BNP [Brain Natriuretic Peptide] Stat Lab 04/06/23 14:15 Completed CBC w/Auto Diff [Complete Blood Count Auto Diff] Stat Lab 04/06/23 14:15 Completed CMP [Comprehensive Metabolic Panel] Stat Lab 04/06/23 14:15 Completed Full Resp Panel w/COVID ([facility]) Routine Lab 04/06/23 14:20 Received Lactic Acid Stat Lab 04/06/23 14:11 Completed Trop I [Troponin I] Stat Lab 04/06/23 14:15 Completed Troponin I Q3H Lab 04/06/23 17:30 Ordered Troponin I Q3H Lab 04/06/23 20:30 Ordered VBG [Venous Blood Gas] Stat RT 04/06/23 14:21 Completed ECG initial Besson Routine Y 04/06/23 14:18 Completed ECG Data Tracing #1: ECG Narrative: Independently interpreted by me, rate is 105, rhythm is regular, axis is normal, no ST elevation in anatomical contiguous leads, QTc 367. MDM Narrative Medical Decision Narrative: In summary patient is a 67-year-old male with past medical history described above who presents emergency department for evaluation of shortness of breath and cough in the setting of COPD. Patient is hemodynamically stable and in respiratory distress upon arrival, afebrile. Patient has minimal air movement and associated wheezing concerning for significant COPD exacerbation. Differential includes viral induced, pneumonia, atypical ACS, among others. Workup will be conducted with hematologic labs, chest x-ray, EKG, troponin. Initial inventions include DuoNeb's x 3, methylprednisolone, azithromycin. After initial DuoNeb's were completed patient had worsening clinical status therefore will be placed on BiPAP moderate settings with continuous albuterol. Initial hematologic labs are remarkable for hypercarbic acidosis, RUBENS. Initial troponin undetectably low. Given that patient is well-perfused aggressive fluid resuscitation will be deferred. [id number] ultrasound at bedside shows nor mal ejection fraction, dilated RV. Given this with tachycardia pulmonary embolism is on the differential for which CTA chest will be ordered. CTA chest, repeat clinical evaluation pending at time of transfer of care to the oncoming physician, Dr. Sanchez. Assessment 4:02 PM patient significant improving on BiPAP but still requiring BiPAP as he still has a significant increased work of breathing. I was present for the bedside ultrasound and agreed that there is a normal LVEF no significant pulmonary edema or pleural effusions noted. Chest x-ray performed which appears interpreted shows no acute cardiopulmonary emergency CT PE is pending Dr. Tam with hospital medicine will follow-up on this to see if there is any need for anticoagulation at this point I think that is unlikely given the significant improvement with COPD treatment. Rocephin azithromycin of also been administered in addition to steroids and magnesium patient still getting continuous nebs. Blood gas showed acute hypercapnic respiratory failure and labs also demonstrated hyponatremia and acute kidney injury. Further care per hospital medicine <Nelly Sanchez MD - Last Filed: 04/06/23 16:37> Vital Signs Vital Signs: 04/06/23 14:22 04/06/23 14:41 04/06/23 14:41 Temperature 97.2 F L Temperature Source Axillary Pulse Rate 111 H 105 H Pulse Rate [Right Radial] 110 H Respiratory Rate 35 H Blood Pressure Blood Pressure [Right Arm] 183/147 H Blood Pressure Mean Blood Pressure Mean [Right Arm] 159 02 Sat by Pulse Oximetry 94 L Oxygen Delivery Method Nasal Cannula Oxygen Flow Rate (LPM) 4 04/06/23 14:31 04/06/23 14:50 04/06/23 15:02 Temperature Temperature Source Pulse Rate 110 H 124 H 127 H Pulse Rate [Right Radial] Respiratory Rate 37 H 32 H 35 H Blood Pressure 80/51 L 123/76 120/62 Blood Pressure [Right Arm] Blood Pressure Mean 55 90 81 Blood Pressure Mean [Right Arm] 02 Sat by Pulse Oximetry 97 97 97 Oxygen Delivery Method Oxygen Flow Rate (LPM) 04/06/23 15:30 04/06/23 15:42 04/06/23 16:00 Temperature Temperature Source Pulse Rate 116 H 121 H 121 H Pulse Rate [Right Radial] Respiratory Rate 33 H 39 H 33 H Blood Pressure 76/51 L 88/50 L 84/44 L Blood Pressure [Right Arm] Blood Pressure Mean 59 54 48 Blood Pressure Mean [Right Arm] 02 Sat by Pulse Oximetry 96 97 97 Oxygen Delivery Method Oxygen Flow Rate (LPM) 04/06/23 16:03 04/06/23 16:08 04/06/23 16:19 Temperature Temperature Source Pulse Rate 118 H 114 H 116 H Pulse Rate [Right Radial] Respiratory Rate 29 H 28 H 30 H Blood Pressure 70/43 L 71/47 L 67/45 L Blood Pressure [Right Arm] Blood Pressure Mean 47 51 49 Blood Pressure Mean [Right Arm] 02 Sat by Pulse Oximetry 98 99 Oxygen Delivery Method Oxygen Flow Rate (LPM) Lab Data Labs: Lab Results 04/06/23 14:11: Lactate 1.7 04/06/23 14:15: WBC 9.6, RBC 4.19 L, Hgb 14.2, Hct 42.3, MCV 100.9 H, MCH 33.8 H , MCHC 33.5, RDW 13.8, Plt Count 156, MPV 7.6, Neut % (Auto) 91.6 H, Lymph % (Auto) 4.2 L, [place] % (Auto) 3.6, Eos % (Auto) 0.2, Baso % (Auto) 0.3, Neut # (Auto) 8.8 H, Lymph # (Auto) 0.4 L, [place] # (Auto) 0.4, Eos # (Auto) 0.0, Baso # (Auto) 0.0, Total Counted 100, Neutrophils % (Manual) 93 H, Lymphocytes % (Manual) 4 L, Monocytes % (Manual) 2, Basophils % (Manual) 1.0, Platelet Estimate Normal, Macrocytosis 1+, Sodium 125 L, Potassium 4.8, Chloride 84 L, Carbon Dioxide 30, Anion Gap 15.8 H, BUN 29 H, Creatinine 1.80 H, Estimated Creat Clear 46, Estimated GFR 38 L, Est GFR ( Amer) 46 L, Glucose 106 H, Calcium 8.6, Total Bilirubin 0.5, AST 166 H, ALT 122 H, Alkaline Phosphatase 90, Troponin I < 0.01, NT-Pro-B Natriuret Pep 547 H, Total Protein 7.4, Albumin 4.3, Globulin 3.1, Albumin/Globulin Ratio 1.4 04/06/23 14:21: VBG pH 7.26 L, VBG pCO2 57.1 H, VBG pO2 35.0, VBG HCO3 25.2, VBG Total CO2 27.0, VBG O2 Saturation 63.0, VBG Base Excess -1.8 Response Orders (Tests/Meds): ED MEDICATIONS Generic Name Dose Route Start Last Admin Trade Name Freq PRN Reason Stop Dose Admin Iopamidol 100 ml 04/06/23 16:33 04/06/23 16:34 Iopamidol-370 (76%);100ml Bottle IV 04/06/23 16:34 100 ml ONCE ONE Administration Sodium Chloride 50 ml 04/06/23 16:33 04/06/23 16:34 0.9 % Sodium Chloride 50 Ml Vial IV 04/06/23 16:34 50 ml ONCE ONE Administration Sodium Chloride 10 ml 04/06/23 16:33 04/06/23 16:35 Sodium Chloride 0.9% 10ml Syr (Rad Only) IV 05/06/23 16:32 10 ml NEEDED PRN Administration Maintain IV Site Discontinued Medications Generic Name Dose Route Start Last Admin Trade Name Freq PRN Reason Stop Dose Admin Albuterol/Ipratropium 9 ml 04/06/23 14:21 04/06/23 14:30 Ipratropium/Albuterol 3 Ml Neb IH 04/06/23 14:22 9 ml ONCE ONE Administration Azithromycin 500 mg/ Sodium 250 mls @ 250 mls/hr 04/06/23 14:22 04/06/23 14:41 Chloride IV 04/06/23 14:23 250 mls/hr ONCE ONE Administration Lactated Ringer's 1,000 mls @ 999 mls/hr 04/06/23 14:45 04/06/23 15:15 Lactated Ringer's 1000 Ml Bag IV 04/06/23 15:45 999 mls/hr .Q1H1M ONE Administration Magnesium Sulfate 2 gm in 50 mls @ 50 mls/hr 04/06/23 15:15 04/06/23 15:57 Magnesium Sulfate 2gm/50ml Premix IV 04/06/23 16:14 50 mls/hr ONCE ONE Administration Ceftriaxone Sodium 1 gm/ 50 mls @ 100 mls/hr 04/06/23 15:15 04/06/23 15:21 Sodium Chloride IV 04/06/23 15:44 100 mls/hr ONCE ONE Administration Methylprednisolone Sodium Succinate 125 mg 04/06/23 14:21 04/06/23 14:38 Methylprednisolone Sod Succ 125mg Vial IV 04/06/23 14:22 125 mg ONCE ONE Administration ORDERS Category Date Time Status CT angio chest PE protocol Stat Cat Scan 04/06/23 15:15 Taken CXR --portable [XR chest portable] Stat Exams 04/06/23 14:24 Completed POCUS Point of Care (ER Only) Stat Exams 04/06/23 15:02 Taken BNP [Brain Natriuretic Peptide] Stat Lab 04/06/23 14:15 Completed CBC w/Auto Diff [Complete Blood Count Auto Diff] Stat Lab 04/06/23 14:15 Completed CMP [Comprehensive Metabolic Panel] Stat Lab 04/06/23 14:15 Completed Full Resp Panel w/COVID ([facility]) Routine Lab 04/06/23 14:20 Received Lactic Acid Stat Lab 04/06/23 14:11 Completed Trop I [Troponin I] Stat Lab 04/06/23 14:15 Completed Troponin I Q3H Lab 04/06/23 17:30 Ordered Troponin I Q3H Lab 04/06/23 20:30 Ordered VBG [Venous Blood Gas] Stat RT 04/06/23 14:21 Completed ECG initial [place] Routine Y 04/06/23 14:18 Completed MDM Narrative Medical Decision Narrative: In summary patient is a 67-year-old male with past medical history described above who presents emergency department for evaluation of shortness of breath a nd cough in the setting of COPD. Patient is hemodynamically stable and in respiratory distress upon arrival, afebrile. Patient has minimal air movement and associated wheezing concerning for significant COPD exacerbation. Differential includes viral induced, pneumonia, atypical ACS, among others. Workup will be conducted with hematologic labs, chest x-ray, EKG, troponin. Initial inventions include DuoNeb's x 3, methylprednisolone, azithromycin. After initial DuoNeb's were completed patient had worsening clinical status therefore will be placed on BiPAP moderate settings with continuous albuterol. Initial hematologic labs are remarkable for hypercarbic acidosis, RUBENS. Initial troponin undetectably low. Given that patient is well-perfused aggressive fluid resuscitation will be deferred. [id number] ultrasound at bedside shows normal ejection fraction, dilated RV. Given this with tachycardia pulmonary embolism is on the differential for which CTA chest will be ordered. CTA chest, repeat clinical evaluation pending at time of transfer of care to the oncoming physician, Dr. Sanchez. Reassessment 4:06 PM patient feeling much better but still requiring BiPAP. Still getting ongoing continuous albuterol steroids magnesium and Rocephin azithromycin have been administered patient has hypercapnic respiratory failure acute kidney injury and hyponatremia. Does have some mild hypotension which is likely secondary to increased intrathoracic pressure IV fluids being administere d I do not suspect septic shock at this point. I discussed the case with Dr. Tam who agreed to admit the patient for further evaluation and treatment. Of note patient has been hypotensive while on BiPAP which is likely secondary to increased intrathoracic pressure and decreased preload. Patient was taken off BiPAP to get a CT scan done and blood pressure significantly improved instantaneously to 116/70 however patient continued to have respiratory distress and was placed back on BiPAP. I do not suspect shock he is still getting IV fluids.
--- NOTE | 2023-04-06 14:28 | PC.NURSE ---
RT at BS
[2023-04-06 14:29] LABS: VBG Base Excess -1.8 mmol/L (-2.4-2.3); VBG HCO3 25.2 mmol/L (23-30); VBG PCO2 57.1 mmol/L (35-51); VBG PH 7.26 mmol/L (7.31-7.41)
--- NOTE | 2023-04-06 14:29 | PC.NURSE ---
RAD at for CXR
[2023-04-06] MEDS: IPRATROPIUM/ALBUTEROL 3 ML NEB 9 ML IH (14:30)
[2023-04-06 14:32] LABS: Basophils % 0.3 % (0.1-2.0); Eosinophils % 0.2 % (0.1-12.0); Hematocrit 42.3 % (42.0-52.0); Hemoglobin 14.2 g/dL (14.1-18.0); Lymphocytes # 0.4 K/mm3 (0.7-4.5); Lymphocytes % 4.2 % (10-50); Mean Corpuscular HGB Conc 33.5 g/dL (31.8-35.4); Mean Corpuscular Hemoglobin 33.8 pg (27.0-31.2); Mean Corpuscular Volume 100.9 fl (80-94); Mean Platelet Volume 7.6 fl (7.4-10.4); Monocytes # 0.4 K/mm3 (0.1-1.0); Monocytes % 3.6 % (1.7-9.3); Neutrophils # 8.8 K/mm3 (1.8-7.8); Neutrophils % 91.6 % (37.0-80.0); Platelet Count 156 K/mm3 (142-424); Red Blood Count 4.19 M/mm3 (4.60-6.20); Red Cell Distribution Width 13.8 % (11.5-17.5); White Blood Count 9.6 K/mm3 (4.8-10.8)
--- NOTE | 2023-04-06 14:32 | PC.NURSE ---
xray at bedside
[2023-04-06 14:37] LABS: Chloride 84 mmol/L (98-107); Potassium 4.8 mmoL/L (3.5-5.1); Sodium 125 mmol/L (136-145)
[2023-04-06] MEDS: METHYLPREDNISOLONE SOD SUCC 125MG VIAL 125 MG IV (14:38)
[2023-04-06 14:40] LABS: Alanine Aminotransferase 122 U/L (12-78); Albumin Level 4.3 g/dl (3.5-5.0); Albumin/Globulin Ratio 1.4 (1.1-1.8); Alkaline Phosphatase 90 U/L (38-126); Anion Gap 15.8 mEq/L (5-15); Aspartate Amino Transferase 166 U/L (17-59); Bilirubin,Total 0.5 mg/dl (0.2-1.3); Blood Urea Nitrogen 29 mg/dl (9-20); Carbon Dioxide 30 mmol/L (22.0-30.0); Creatinine Clearance Estimated 46 mL/min (50-200); Estimated Glomerular Filt Rate 38 ml/min (>60); GFR (African American) 46 ML/MIN (>60); Globulin 3.1 g/dL (1.3-3.2); MANUAL DIFFERENTIAL MANUAL DIFFERENTIAL (MANUAL DIFF); Total Protein,Serum 7.4 g/dl (6.3-8.2)
[2023-04-06 14:41] LABS: Calcium 8.6 mg/dl (8.4-10.2); Glucose 106 mg/dl (74-100)
[2023-04-06 14:41] LABS: Lactic Acid 1.7 mmol/L (0.7-2.1)
[2023-04-06] MEDS: AZITHROMYCIN 500 MG in 0.9 % SODIUM CHLORIDE 250 ML 250 MG IV (14:41)
[2023-04-06 14:50] LABS: Lymphocytes % 4 % (10-50); Monocytes % 2 % (2-9); NT Pro Brain Natriuretic Pep. 547 pg/mL (0-125); Neutrophils % 93 % (42-76); Total Cells Counted 100
[2023-04-06 14:51] LABS: Macrocytosis 1+; Platelet Estimate Normal
[2023-04-06 14:53] LABS: Troponin I < 0.01 ng/ml (0.00-0.034)
--- NOTE | 2023-04-06 15:05 | PC.NURSE ---
Dr. Means and RT at
[2023-04-06] MEDS: LACTATED RINGERS 1000ML 1,000 ML 999 ML IV (15:15)
--- NOTE | 2023-04-06 15:15 | CT_ITS ---
PROCEDURE INFORMATION: Exam: CTA Chest With Contrast Exam date and time: 04/06/2023 4:26 PM Age: 67 years old Clinical indication: Dyspnea TECHNIQUE: Imaging protocol: Computed tomographic angiography of the chest with contrast. Exam focused on the arteries. 3D rendering (Not supervised by radiologist): MIP and/or 3D reconstructed images were created by the technologist. Radiation optimization: All CT scans at this facility use at least one of these dose optimization techniques: automated exposure control; mA and/or kV adjustment per patient size (includes targeted exams where dose is matched to clinical indication); or iterative reconstruction. Contrast material: ISOVUE; Contrast volume: 100 ml; Contrast route: INTRAVENOUS (IV); COMPARISON: CT CHEST WO CON 08/12/2022 2:18 PM FINDINGS: Pulmonary arteries: Normal. No pulmonary emboli. Aorta: Atherosclerotic changes of the thoracic aorta. Aorta normal caliber. No evidence of aneurysm or dissection. Lungs: Subpleural opacification noted in the inferolateral right lower lobe measuring 6.7 x 2.4 x 1.8 cm. Somewhat smaller opacity noted in this region on the recent prior CT 08/12/2022 measuring 2.8 x 1.0 x 1.0 cm. Interval development of 10 mm ill-defined nodular density in the anterolateral right lower lobe on axial image 107 of series 5 and coronal image 33 of series 1001. Another area of reticular opacity seen in the posterosuperior right lower lobe centered on axial image 69. Lungs otherwise clear. Pleural spaces: Unremarkable. No pneumothorax. No pleural effusion. Heart: Unremarkable. No cardiomegaly. No pericardial effusion. Coronary arteries: Moderate coronary artery calcifications suggesting coronary artery disease. Lymph nodes: Unremarkable. No enlarged lymph nodes. Bones/joints: Unremarkable. No acute fracture. Soft tissues: Unremarkable. IMPRESSION: 1. No evident PE. 2. Moderate size area of consolidative masslike opacity in the inferolateral right lower lobe favored to represent an area of pneumonia. The possibility of progressing mass related to tumor not absolutely excluded as a somewhat smaller opacity noted in this area of the previous CT. A ill-defined 10 mm nodular density in the anterolateral right lower lobe has developed in the interval. Infectious process favored although developing nodule related to tumor not completely excluded. Short-term follow-up CT in 6-12 weeks advised reassessment of the above findings. CT PET study or tissue sampling might also be consideredT. 3. Additional reticular opacity in the posterior right lower lobe may also be infectious. 4. Moderate coronary artery calcifications suggesting coronary artery disease.
[2023-04-06 15:19] LABS: Adenovirus,PCR Not Detected (NotDetected); Coronavirus 19, PCR Not Detected (NotDetected); Coronavirus 229E Not Detected (NotDetected); Coronavirus NL63 Not Detected (NotDetected); Coronavirus OC43 Not Detected (NotDetected); Coronovirus HKU1,PCR Not Detected (NotDetected); Human Metapneumovirus Not Detected (NotDetected); Influenza A, PCR Not Detected (NotDetected); Influenza AH1, 2009 Not Detected (NotDetected); Influenza AH1, PCR Not Detected (NotDetected); Influenza AH3,PCR Not Detected (NotDetected); Influenza B, PCR Not Detected (NotDetected); Parainfluenza 1, PCR Not Detected (NotDetected); Parainfluenza 2, PCR Not Detected (NotDetected); Parainfluenza 3, PCR Not Detected (NotDetected); Parainfluenza 4, PCR Not Detected (NotDetected); Respiratory Syncytial Virus Not Detected (NotDetected); Rhinovirus/Enterovirus Not Detected (NotDetected)
[2023-04-06] MEDS: CEFTRIAXONE SODIUM 1 GM in 0.9 % SODIUM CHLORIDE 50 ML IV (15:21)
--- NOTE | 2023-04-06 15:39 | [facility].ITSTN ---
patient not ready for CT at this time. RN to call when ready
[2023-04-06] MEDS: MAGNESIUM SULFATE IN WATER 2 GM/50 ML PIGGYBACK IV (15:57)
--- NOTE | 2023-04-06 16:03 | PC.NURSE ---
CARE MANAGEMENT NOTIFIED OF ADMISSION, PT ACCEPTED BY DR PAULINO
[2023-04-06] MEDS: IOPAMIDOL-370 (76%);100ML BOTTLE 100 ML IV (16:34)
[2023-04-06] MEDS: 0.9 % SODIUM CHLORIDE 50 ML VIAL IV (16:34)
[2023-04-06] MEDS: SODIUM CHLORIDE 0.9% 10ML SYR (RAD ONLY) 10 ML IV (16:35)
--- NOTE | 2023-04-06 16:49 | PC.NURSE ---
Called report to Lisa BECERRA on 2nd floor and answered all questions
[2023-04-06 18:12] LABS: Troponin I 0.02 ng/ml (0.00-0.034)
[2023-04-06] MEDS: METHYLPREDNISOLONE SOD SUCC 125MG VIAL 60 MG IV ×2 (18:27)
[2023-04-06] MEDS: HEPARIN SODIUM 5,000 UNIT/ML VIAL 5000 UNIT SQ (18:27)
--- NOTE | 2023-04-06 18:36 | EXP.HP ---
History of Present Illness *Admission Date: 04/06/23 *Reason for visit:: SOB *History of present illness: Patient is a 67-year-old male with past medical history of COPD on 4 L nasal cannula at baseline who presented to hospital due to shortness of breath. Patient mentions he has been having worsening respiratory distress for the past few days, which is not improving, so he decided to come to the hospital. He also has past medical history of heart failure with preserved ejection fraction alcohol use, tobacco dependence. He smoke 4-5 cigs/day, and 8 beers/day. [facility] Disclaimer: The information contained in this section may have been updated after the patient was seen, as this information can be updated by other users. Medical History Alcohol use disorder, severe, in early remission CAP (community acquired pneumonia) COPD (chronic obstructive pulmonary disease) Hyperlipidemia Hypertension Obesity (BMI 30-39.9) Tobacco dependence Surgical History History of colonoscopy Family History Mother Lung cancer Father COPD (chronic obstructive pulmonary disease) Social History (Updated 04/06/23 @ 17:57 by Franchesca Chawla RN) Smoking Status: Current every day smoker tobacco type: cigarettes packs per day: 2 second hand exposure: No alcohol intake: current current occupational status: disabled Travel in the last 8 weeks: None household members: significant other caffeine: No Review of Systems Review of Systems Review of systems (narrative): as per HPI Meds Home Medications and Allergies Home Medications Medication Instructions Recorded Confirmed Type albuterol sulfate 90 mcg/actuation 1 - 2 puffs IH Q4HP PRN Shortness 03/24/20 04/06/23 History aerosol inhaler Of Breath amlodipine 10 mg tablet 10 mg PO DAILY High blood pressure 03/24/20 04/06/23 History escitalopram oxalate 20 mg tablet 20 mg PO DAILY mood 03/24/20 04/06/23 History lisinopril 20 1 tab PO DAILY High blood pressure 03/24/20 04/06/23 History mg-hydrochlorothiazide 12.5 mg tablet bisoprolol fumarate 5 mg tablet 5 mg PO DAILY High blood pressure 08/12/22 04/06/23 History pantoprazole 40 mg tablet,delayed 40 mg PO DAILY Acid reflux 08/12/22 04/06/23 History release rosuvastatin 10 mg tablet 10 mg PO HS Cholesterol 08/12/22 04/06/23 History fluticasone fur. 100 mcg-umeclid 1 inh inhalation DAILY BREATHING 04/06/23 04/06/23 History 62.5 mcg-vilant 25 mcg ISSUES inhalat.powder (Trelegy Ellipta) furosemide 20 mg tablet 20 mg PO DIRECTED 04/06/23 04/06/23 History ipratropium 20 mcg-albuterol 100 1 puff inhalation QID BREATHING 04/06/23 04/06/23 History mcg/actuation mist for inhalation ISSUES (Combivent Respimat) New Prescriptions to Start Prescriptions: Allergies Allergy/AdvReac Type Severity Reaction Status Date / Time erythromycin base Allergy Unknown NA-NAUSEA/V Verified 11/19/18 11:23 [ERYTHROMYCIN BASE] OMITING Exam Data for Last 24 hours Vital signs and Labs for Last 24 Hours: Temp Pulse Resp BP Pulse Ox O2 Del Method O2 Flow Rate 98.0 F 105 H 27 H 108/61 L 95 Nasal Cannula 3 04/06/23 17:07 04/06/23 17:30 04/06/23 17:30 04/06/23 17:30 04/06/23 17:30 04/06/23 17:30 04/06/23 17:30 FiO2 30 04/06/23 15:05 Laboratory Results - last 24 hr 04/06/23 14:11: Lactate 1.7 04/06/23 14:15: WBC 9.6, RBC 4.19 L, Hgb 14.2, Hct 42.3, MCV 100.9 H, MCH 33.8 H, MCHC 33.5, RDW 13.8, Plt Count 156, MPV 7.6, Neut % (Auto) 91.6 H, Lymph % (Auto) 4.2 L, [place] % (Auto) 3.6, Eos % (Auto) 0.2, Baso % (Auto) 0.3, Neut # (Auto) 8.8 H, Lymph # (Auto) 0.4 L, [place] # (Auto) 0.4, Eos # (Auto) 0.0, Baso # (Auto) 0.0, Total Counted 100, Neutrophils % (Manual) 93 H, Lymphocytes % (Manual) 4 L, Monocytes % (Manual) 2, Basophils % (Manual) 1.0, Platelet Estimate Normal, Macrocytosis 1+, Sodium 125 L, Potassium 4.8, Chloride 84 L, Carbon Dioxide 30, Anion Gap 15.8 H, BUN 29 H, Creatinine 1.80 H, Estimated Creat Clear 46, Estimated GFR 38 L, Est GFR ( Amer) 46 L, Glucose 106 H, Calcium 8.6, Total Bilirubin 0.5, AST 166 H, ALT 122 H, Alkaline Phosphatase 90, Troponin I < 0.01, NT-Pro-B Natriuret Pep 547 H, Total Protein 7.4, Albumin 4.3, Globulin 3.1, Albumin/Globulin Ratio 1.4 04/06/23 14:20: Chlamy pneumoniae PCR TNP, Adenovirus (PCR) Not detected, B. pertussis DNA (PCR) TNP, Coronavirus OC43 (PCR) Not detected, Coronavirus HKU1 (PCR) Not detected, Coronavirus 229E (PCR) Not detected, SARS-CoV-2 (PCR) Not detected, Coronavirus NL63 (PCR) Not detected, Human Metapneumovir PCR Not detected, Influenza A (H1) PCR Not detected, Influ A (H1N1/09) PCR Not detected, Influenza A (H3) PCR Not detected, Influenza Type A (PCR) Not detected, Influenza Type B (PCR) Not detected, M. pneumoniae (PCR) TNP, Parainfluenza 1 (PCR) Not detected, Parainfluenza 2 (PCR) Not detected, Parainfluenza 3 (PCR) Not detected, Parainfluenza 4 (PCR) Not detected, RSV (PCR) Not detected, Entero/Rhino (PCR) Not detected 04/06/23 14:21: VBG pH 7.26 L, VBG pCO2 57.1 H, VBG pO2 35.0, VBG HCO3 25.2, VBG Total CO2 27.0, VBG O2 Saturation 63.0, VBG Base Excess -1.8 04/06/23 17:30: Troponin I 0.02 I & O for Last 24 hours: Intake & Output 04/03/23 04/04/23 04/05/2304/06/24 23:59 23:59 23:59 23:59 Weight 81.647 kg Constitutional Constitutional: moderate distress, chronically ill appearing and cooperative *Routine HEENT Exam Head: Present normocephalic Eye: Present EOMI and PERRL ENT: Present mucous membranes moist *Routine Neck Exam Neck: Present supple, full ROM and trachea midline; Absent JVD or carotid bruit *Routine Respiratory Exam Respiratory: Present accessory muscle use, decreased breath sounds, respiratory distress, rhonchi, wheezes, diminished air movement and symmetric chest movement *Routine Cardiovascular Exam Cardiovascular: Present tachycardia; Absent murmur *Routine Abdominal Exam Abdominal: Present soft and normoactive bowel sounds; Absent tenderness, distended or rebound *Routine Rectal Exam Rectal:: deferred *Routine Genitalia Exam Genitalia:: deferred *Routine Extremities Exam Extremities: Present full ROM and pulses intact; Absent cyanosis, clubbing or edema *Routine Skin Exam Skin: Present warm; Absent rash *Routine Neurological Exam Neurological: Present alert, oriented X3, moving all extremities, vision grossly intact and hearing grossly intact; Absent sensory deficit or motor deficit Routine Psychiatric Exam Psychiatric: Present normal affect, normal thought process, cooperative, good insight and good judgment Assessment and Plan *Assessment and plan (1) Acute exacerbation of chronic obstructive pulmonary disease: Status: Acute Category: Medical Code(s): J44.1 - Chronic obstructive pulmonary disease with (acute) exacerbation (2) Acute hypercapnic respiratory failure: Status: Acute Category: Medical Code(s): J96.02 - Acute respiratory failure with hypercapnia (3) RUBENS (acute kidney injury): Status: Acute Category: Medical Code(s): N17.9 - Acute kidney failure, unspecified (4) Acute hyponatremia: Status: Acute Category: Medical Code(s): E87.1 - Hypo-osmolality and hyponatremia (5) CAP (community acquired pneumonia): Status: Acute Category: Medical Code(s): J18.9 - Pneumonia, unspecified organism (6) Alcohol use disorder, severe, in early remission: Status: Acute Category: Medical Code(s): F10.21 - Alcohol dependence, in remission (7) Tobacco dependence: Status: Acute Category: Medical Code(s): F17.200 - Nicotine dependence, unspecified, uncomplicated Plan Patient is a 67-year-old male with past medical history of COPD on 4 L nasal cannula at baseline who presented to hospital due to shortness of breath. Patient mentions he has been having worsening respiratory distress for the past few days, which is not improving, so he decided to come to the hospital. He also has past medical history of heart failure with preserved ejection fraction alcohol use, tobacco dependence. Assessment COPD exacerbation Acute hypoxic hypercapnic respiratory failure satting less than 90% on room air Right lower lung masslike opacity suggestive of pneumonia, cannot rule out tumor Acute kidney injury Tobacco abuse Alcohol use disorder Chronic heart failure with preserved ejection fraction Plan DuoNeb every 4 hours scheduled IV Solu-Medrol every 6 hours Start IV vancomycin, cefepime Check PCT level Consult pulmonary Gentle IV fluid therapy with normal saline Hold nephrotoxic medications Nicotine patch Monitor and replace electrolytes DVT prophylaxis-heparin
--- NOTE | 2023-04-06 18:40 | PC.NURSE ---
FRIEND OF THE FAMILY TAINA QUILES CALLED AND STATED THAT IF PT NEEDS [facility] HOME AND PT'S WILDER ISN'T OUT OF YET TO CALL HIM, HIS NUMBER IS [phone] (STATED PT'S WAS IN [facility]RE[facility] 2 DAYS AGO AND IS AT [facility])
[2023-04-06] MEDS: VANCOMYCIN CONSULT REQUEST 1 EACH NOTAPPLIC (18:50)
[2023-04-06 19:17] LABS: ABG Base Excess -3.4 mmol/L (-2.4-2.3); ABG HCO3 22.7 mmhg (22.0-26.0); ABG Oxygen Saturation 95 % (90-100); ABG PCO2 45.1 mmhg (35.0-45.0); ABG PH 7.32 mmol/L (7.35-7.45); ABG PO2 82.6 mmhg (80-100); ABG TCO2 24.1 mmhg (23-27)
[2023-04-06] MEDS: IPRATROPIUM/ALBUTEROL 3 ML NEB IH (19:17)
[2023-04-06 19:18] LABS: Allen's Test Acceptable; Oxygen 3L NC %; Source Right Radial
[2023-04-06] MEDS: 0.9 % SODIUM CHLORIDE 1000ML 1,000 ML 50 ML IV (20:06)
[2023-04-06] MEDS: CEFEPIME HCL 2 GM in 0.9 % SODIUM CHLORIDE 100 ML IV (20:07)
[2023-04-06] MEDS: NICOTINE 21MG/24HR PATCH 21 MG TD (20:13)
[2023-04-06] MEDS: THIAMINE 100MG TABLET 100 MG PO (20:13)
[2023-04-06 20:41] LABS: Troponin I 0.01 ng/ml (0.00-0.034)
[2023-04-06] MEDS: VANCOMYCIN/WATER FOR INJ (PEG) 1.5 GM/300 ML PIGGYBACK IV (21:15)
[2023-04-07] VITALS (21 sets, daily range): BP systolic 92–181; BP diastolic 53–87; PULSE 63–109; RESP 20–28; TEMP 36.6–37.2; O2SAT 88–97; BMI 25.6
[2023-04-07] MEDS: METHYLPREDNISOLONE SOD SUCC 125MG VIAL 60 MG IV ×2 (00:01→07:04)
[2023-04-07] MEDS: HEPARIN SODIUM 5,000 UNIT/ML VIAL 5000 UNIT SQ ×3 (03:00→17:52)
[2023-04-07] MEDS: CEFEPIME HCL 2 GM in 0.9 % SODIUM CHLORIDE 100 ML IV ×2 (03:00→15:25)
--- NOTE | 2023-04-07 05:10 | PC.NURSE ---
Shift summary: Pt AOx4, CIWA scores of 4, asleep for most of shift. VSS on 4 L NC, slightly elevated temperature throughout shift. Pt's BP's mildly hypotensive when placed on BiPAP. RT and RN discussed this, BP monitoring in place, BP 69-108/46-62 while on BiPAP, still arousable to touch and voice. Pt currently tolerating BiPAP at 30% FiO2. No other acute issues or events overnight. Fall precautions in place, call light within reach.
[2023-04-07] MEDS: IPRATROPIUM/ALBUTEROL 3 ML NEB IH ×5 (06:20→22:16)
[2023-04-07 06:55] LABS: Basophils % 0.2 % (0.1-2.0); Eosinophils % 0.1 % (0.1-12.0); Hematocrit 38.7 % (42.0-52.0); Hemoglobin 12.9 g/dL (14.1-18.0); Lymphocytes # 0.3 K/mm3 (0.7-4.5); Lymphocytes % 4.3 % (10-50); Mean Corpuscular HGB Conc 33.3 g/dL (31.8-35.4); Mean Corpuscular Hemoglobin 33.8 pg (27.0-31.2); Mean Corpuscular Volume 101.3 fl (80-94); Mean Platelet Volume 7.8 fl (7.4-10.4); Monocytes # 0.2 K/mm3 (0.1-1.0); Monocytes % 3.3 % (1.7-9.3); Neutrophils # 6.9 K/mm3 (1.8-7.8); Neutrophils % 92.1 % (37.0-80.0); Platelet Count 144 K/mm3 (142-424); Red Blood Count 3.82 M/mm3 (4.60-6.20); Red Cell Distribution Width 13.8 % (11.5-17.5); White Blood Count 7.5 K/mm3 (4.8-10.8)
[2023-04-07 07:05] LABS: MANUAL DIFFERENTIAL MANUAL DIFFERENTIAL (MANUAL DIFF)
[2023-04-07 07:17] LABS: Anion Gap 10.5 mEq/L (5-15); Blood Urea Nitrogen 33 mg/dl (9-20); Calcium 8.4 mg/dl (8.4-10.2); Carbon Dioxide 28 mmol/L (22.0-30.0); Chloride 91 mmol/L (98-107); Creatinine Clearance Estimated 48 mL/min (50-200); Estimated Glomerular Filt Rate 40 ml/min (>60); GFR (African American) 49 ML/MIN (>60); Glucose 135 mg/dl (74-100); Potassium 4.5 mmoL/L (3.5-5.1); Sodium 125 mmol/L (136-145)
--- NOTE | 2023-04-07 08:10 | P.CONPHA_ITS ---
Pharmacy Consult Date: 04/07/23 Time: 08:11 Referring provider: ANGELICA Reason for Consult:: PHARMACY CONSULTED TO DOSE AND MANAGE VANCOMYCIN THERAPY Allergies Allergy/AdvReac Type Severity Reaction Status Date / Time erythromycin base Allergy Unknown NA-NAUSEA/V Verified 11/19/18 11:23 [ERYTHROMYCIN BASE] OMITING Home Medications Medication Instructions Recorded Confirmed Type albuterol sulfate 90 mcg/actuation 1 - 2 puffs IH Q4HP PRN Shortness 03/24/20 04/06/23 History aerosol inhaler Of Breath amlodipine 10 mg tablet 10 mg PO DAILY High blood pressure 03/24/20 04/06/23 History escitalopram oxalate 20 mg tablet 20 mg PO DAILY mood 03/24/20 04/06/23 History lisinopril 20 1 tab PO DAILY High blood pressure 03/24/20 04/06/23 History mg-hydrochlorothiazide 12.5 mg tablet bisoprolol fumarate 5 mg tablet 5 mg PO DAILY High blood pressure 08/12/22 04/06/23 History pantoprazole 40 mg tablet,delayed 40 mg PO DAILY Acid reflux 08/12/22 04/06/23 History release rosuvastatin 10 mg tablet 10 mg PO HS Cholesterol 08/12/22 04/06/23 History fluticasone fur. 100 mcg-umeclid 1 inh inhalation DAILY BREATHING 04/06/23 04/06/23 History 62.5 mcg-vilant 25 mcg ISSUES inhalat.powder (Trelegy Ellipta) furosemide 20 mg tablet 20 mg PO DIRECTED 04/06/23 04/06/23 History ipratropium 20 mcg-albuterol 100 1 puff inhalation QID BREATHING 04/06/23 04/06/23 History mcg/actuation mist for inhalation ISSUES (Combivent Respimat) New Prescriptions to Start Prescriptions: Height: 1.78 m Weight: 81.2 kg Laboratory Results:: Laboratory Results - last 24 hr 04/06/23 14:11: Lactate 1.7 04/06/23 14:15: WBC 9.6, RBC 4.19 L, Hgb 14.2, Hct 42.3, MCV 100.9 H, MCH 33.8 H , MCHC 33.5, RDW 13.8, Plt Count 156, MPV 7.6, Neut % (Auto) 91.6 H, Lymph % (Auto) 4.2 L, [place] % (Auto) 3.6, Eos % (Auto) 0.2, Baso % (Auto) 0.3, Neut # (Auto) 8.8 H, Lymph # (Auto) 0.4 L, [place] # (Auto) 0.4, Eos # (Auto) 0.0, Baso # (Auto) 0.0, Total Counted 100, Neutrophils % (Manual) 93 H, Lymphocytes % (Manual) 4 L, Monocytes % (Manual) 2, Basophils % (Manual) 1.0, Platelet Estimate Normal, Macrocytosis 1+, Sodium 125 L, Potassium 4.8, Chloride 84 L, Carbon Dioxide 30, Anion Gap 15.8 H, BUN 29 H, Creatinine 1.80 H, Estimated Creat Clear 46, Estimated GFR 38 L, Est GFR ( Amer) 46 L, Glucose 106 H, Calcium 8.6, Total Bilirubin 0.5, AST 166 H, ALT 122 H, Alkaline Phosphatase 90, Troponin I < 0.01, NT-Pro-B Natriuret Pep 547 H, Total Protein 7.4, Albumin 4.3, Globulin 3.1, Albumin/Globulin Ratio 1.4 04/06/23 14:20: Chlamy pneumoniae PCR TNP, Adenovirus (PCR) Not detected, B. pertussis DNA (PCR) TNP, Coronavirus OC43 (PCR) Not detected, Coronavirus HKU1 (PCR) Not detected, Coronavirus 229E (PCR) Not detected, SARS-CoV-2 (PCR) Not detected, Coronavirus NL63 (PCR) Not detected, Human Metapneumovir PCR Not detected, Influenza A (H1) PCR Not detected, Influ A (H1N1/09) PCR Not detected, Influenza A (H3) PCR Not detected, Influenza Type A (PCR) Not detected, Influenza Type B (PCR) Not detected, M. pneumoniae (PCR) TNP, Parainfluenza 1 (PCR) Not detected, Parainfluenza 2 (PCR) Not detected, Parainfluenza 3 (PCR) Not detected, Parainfluenza 4 (PCR) Not detected, RSV (PCR) Not detected, Entero/Rhino (PCR) Not detected 04/06/23 14:21: VBG pH 7.26 L, VBG pCO2 57.1 H, VBG pO2 35.0, VBG HCO3 25.2, VBG Total CO2 27.0, VBG O2 Saturation 63.0, VBG Base Excess -1.8 04/06/23 17:30: Troponin I 0.02 04/06/23 18:09: Specimen Source Right radial, O2 % 3l nc, ABG pH 7.32 L, ABG pCO2 45.1 H, ABG pO2 82.6, ABG HCO3 22.7, ABG Total CO2 24.1, ABG O2 Saturation 95, ABG Base Excess -3.4 L, Sukumar Test Acceptable 04/06/23 20:10: Troponin I 0.01 04/07/23 05:45: WBC 7.5, RBC 3.82 L, Hgb 12.9 L, Hct 38.7 L, MCV 101.3 H, MCH 33.8 H, MCHC 33.3, RDW 13.8, Plt Count 144, MPV 7.8, Neut % (Auto) 92.1 H, Lymph % (Auto) 4.3 L, [place] % (Auto) 3.3, Eos % (Auto) 0.1, Baso % (Auto) 0.2, Neut # (Auto) 6.9, Lymph # (Auto) 0.3 L, [place] # (Auto) 0.2, Eos # (Auto) 0.0, Baso # (Auto) 0.0, Sodium 125 L, Potassium 4.5, Chloride 91 L, Carbon Dioxide 28, Anion Gap 10.5, BUN 33 H, Creatinine 1.70 H, Estimated Creat Clear 48, Estimated GFR 40 L, Est GFR ( Amer) 49 L, Glucose 135 H D, Calcium 8.4 Medical History: Medical History (Updated 04/06/23 @ 16:07 by Nelly Sanchez MD) Alcohol use disorder, severe, in early remission CAP (community acquired pneumonia) COPD (chronic obstructive pulmonary disease) Hyperlipidemia Hypertension Obesity (BMI 30-39.9) Tobacco dependence Assessment and Plan Assessment and plan all Dx Assessment and Plan for all problems:: FROM H&P: Plan Patient is a 67-year-old male with past medical history of COPD on 4 L nasal cannula at baseline who presented to hospital due to shortness of breath. Patient mentions he has been having worsening respiratory distress for the past few days, which is not improving, so he decided to come to the hospital. He also has past medical history of heart failure with preserved ejection fraction alcohol use, tobacco dependence. PT RECEIVED VANCOMYCIN 1500MG LAST NIGHT IN ER, WILL CONTINUE WITH VANCOMYCIN 1250MG EVERY 24 HOURS. PT ALSO RECEIVING CEFEPIME 2GM EVERY 8 HOURS
[2023-04-07] MEDS: NICOTINE 21MG/24HR PATCH 21 MG TD (09:16)
[2023-04-07] MEDS: THIAMINE 100MG TABLET 100 MG PO (09:16)
[2023-04-07] MEDS: FOLIC ACID 1MG TABLET 1 MG PO (09:16)
[2023-04-07 09:21] LABS: Lymphocytes % 6 % (10-50); Monocytes % 4 % (2-9); Neutrophils % 90 % (42-76); Total Cells Counted 100
[2023-04-07 09:22] LABS: Macrocytosis 1+; Platelet Estimate Normal
--- NOTE | 2023-04-07 09:26 | P.CONS_ITS ---
History of Present Illness History of present illness: Ms. Flores is a 66-year-old male current smoker greater than 30 with medical diagnoses given Trelegy inhaler, chronic hypoxic respiratory failure, oxygen at baseline last seen in the hospital August 2022 for COPD exacerbation community- acquired pneumonia presented again to the hospital with worsening respiratory distress. [facility] Disclaimer: The information contained in this section may have been updated after the patient was seen, as this information can be updated by other users. Medical History (Updated 04/07/23 @ 13:18 by SUMMER Last) Alcohol use disorder, severe, in early remission CAP (community acquired pneumonia) COPD (chronic obstructive pulmonary disease) Hyperlipidemia Hypertension Obesity (BMI 30-39.9) Tobacco dependence Surgical History History of colonoscopy Family History Mother Lung cancer Father COPD (chronic obstructive pulmonary disease) Social History (Updated 04/06/23 @ 17:57 by Franchesca Chawla RN) Smoking Status: Current every day smoker tobacco type: cigarettes packs per day: 2 second hand exposure: No alcohol intake: current current occupational status: disabled Travel in the last 8 weeks: None household members: significant other caffeine: No Review of Systems Constitutional Constitutional: Reports anorexia, Reports body ache(s) and Reports fatigue Eyes Eyes: Denies eye discharge, Denies dry eyes, Denies irritation and Denies itchy eyes ENT Ears, Nose, Mouth, and Throat: Denies epistaxis, Denies facial pain, Denies lip swelling and Denies throat swelling *Cardiovascular Cardiovascular: Reports dyspnea and Reports dyspnea on exertion *Respiratory Respiratory: Denies change in phlegm color, Reports chest congestion, Reports cough, Reports dyspnea, Reports dyspnea on exertion, Reports excessive phlegm production and Reports wheezing *Gastrointestinal Gastrointestinal: Denies abdominal pain, Denies belching and Denies cramping *Musculoskeletal Musculoskeletal: Reports back pain, Reports myalgias and Reports other (No small joint swelling or Pain) Psychiatric Psychiatric: Denies homicidal ideation and Denies suicidal ideation Endocrine Endocrine: Reports fatigue and Denies heat intolerance Hematologic/Lymphatic Hematologic/Lymphatic: Denies easy bleeding and Denies lymphadenopathy Allergic/Immunologic Allergic/Immunologic: Denies itchy eyes, Denies lip swelling, Denies throat swelling and Reports wheezing Pulmonology Exam Inpatient Vital signs and Labs for Last 24 Hours: Temp Pulse Resp BP Pulse Ox O2 Del Method O2 Flow Rate 97.9 F 70 24 104/68 L 95 BiPAP 4 04/07/23 08:00 04/07/23 06:20 04/07/23 06:00 04/07/23 06:00 04/07/23 06:00 04/07/23 06:42 04/07/23 02:00 FiO2 30 04/07/23 06:00 Laboratory Results - last 24 hr 04/06/23 14:11: Lactate 1.7 04/06/23 14:15: WBC 9.6, RBC 4.19 L, Hgb 14.2, Hct 42.3, MCV 100.9 H, MCH 33.8 H , MCHC 33.5, RDW 13.8, Plt Count 156, MPV 7.6, Neut % (Auto) 91.6 H, Lymph % (Auto) 4.2 L, Power % (Auto) 3.6, Eos % (Auto) 0.2, Baso % (Auto) 0.3, Neut # (Auto) 8.8 H, Lymph # (Auto) 0.4 L, Power # (Auto) 0.4, Eos # (Auto) 0.0, Baso # (Auto) 0.0, Total Counted 100, Neutrophils % (Manual) 93 H, Lymphocytes % (Manual) 4 L, Monocytes % (Manual) 2, Basophils % (Manual) 1.0, Platelet Estimate Normal, Macrocytosis 1+, Sodium 125 L, Potassium 4.8, Chloride 84 L, Carbon Dioxide 30, Anion Gap 15.8 H, BUN 29 H, Creatinine 1.80 H, Estimated Creat Clear 46, Estimated GFR 38 L, Est GFR ( Amer) 46 L, Glucose 106 H, Calcium 8.6, Total Bilirubin 0.5, AST 166 H, ALT 122 H, Alkaline Phosphatase 90, Troponin I < 0.01, NT-Pro-B Natriuret Pep 547 H, Total Protein 7.4, Albumin 4.3, Globulin 3.1, Albumin/Globulin Ratio 1.4 04/06/23 14:20: Chlamy pneumoniae PCR TNP, Adenovirus (PCR) Not detected, B. pertussis DNA (PCR) TNP, Coronavirus OC43 (PCR) Not detected, Coronavirus HKU1 (PCR) Not detected, Coronavirus 229E (PCR) Not detected, SARS-CoV-2 (PCR) Not detected, Coronavirus NL63 (PCR) Not detected, Human Metapneumovir PCR Not detected, Influenza A (H1) PCR Not detected, Influ A (H1N1/09) PCR Not detected, Influenza A (H3) PCR Not detected, Influenza Type A (PCR) Not detected, Influenza Type B (PCR) Not detected, M. pneumoniae (PCR) TNP, Parainfluenza 1 (PCR) Not detected, Parainfluenza 2 (PCR) Not detected, Parainfluenza 3 (PCR) Not detected, Parainfluenza 4 (PCR) Not detected, RSV (PCR) Not detected, Entero/Rhino (PCR) Not detected 04/06/23 14:21: VBG pH 7.26 L, VBG pCO2 57.1 H, VBG pO2 35.0, VBG HCO3 25.2, VBG Total CO2 27.0, VBG O2 Saturation 63.0, VBG Base Excess -1.8 04/06/23 17:30: Troponin I 0.02 04/06/23 18:09: Specimen Source Right radial, O2 % 3l nc, ABG pH 7.32 L, ABG pCO2 45.1 H, ABG pO2 82.6, ABG HCO3 22.7, ABG Total CO2 24.1, ABG O2 Saturation 95, ABG Base Excess -3.4 L, Sukumar Test Acceptable 04/06/23 20:10: Troponin I 0.01 04/07/23 05:45: WBC 7.5, RBC 3.82 L, Hgb 12.9 L, Hct 38.7 L, MCV 101.3 H, MCH 33.8 H, MCHC 33.3, RDW 13.8, Plt Count 144, MPV 7.8, Neut % (Auto) 92.1 H, Lymph % (Auto) 4.3 L, Power % (Auto) 3.3, Eos % (Auto) 0.1, Baso % (Auto) 0.2, Neut # (Auto) 6.9, Lymph # (Auto) 0.3 L, Power # (Auto) 0.2, Eos # (Auto) 0.0, Baso # (Auto) 0.0, Total Counted 100, Neutrophils % (Manual) 90 H, Lymphocytes % (Manual) 6 L, Monocytes % (Manual) 4, Platelet Estimate Normal, Macrocytosis 1+, Sodium 125 L, Potassium 4.5, Chloride 91 L, Carbon Dioxide 28, Anion Gap 10.5, BUN 33 H, Creatinine 1.70 H, Estimated Creat Clear 48, Estimated GFR 40 L, Est GFR ( Amer) 49 L, Glucose 135 H D, Calcium 8.4 I & O for Labs for Last 24 Hours: Intake & Output 04/04/23 04/05/23 04/06/23 04/07/23 23:59 23:59 23:59 23:59 Intake Total 660 / 660 Output Total 450 / 650 425 / 425 Balance -450 / 10 235 / 235 Weight 180 lb 179 lb 0.246 oz Constitutional: Present severe distress Head: Present normocephalic and atraumatic ENT: Present normal exam, normal oropharynx and mucous membranes moist Neck: Present normal inspection and full ROM Respiratory: Present decreased breath sounds, respiratory distress, wheezes, distant breath sounds and diminished air movement; Absent able to speak in complete sentences Cardiac: Present S1/S2, Tachycardia and radial pulses present GI: Present soft and distention; Absent tenderness or guarding Skin: Present intact; Absent cyanosis or jaundice Neuro: Present alert, awake and oriented x 3 Extremities: Present normal inspection; Absent clubbing or cyanosis Psychiatric: Present normal affect and cooperative Meds Home Medications and Allergies Home Medications Medication Instructions Recorded Confirmed Type albuterol sulfate 90 mcg/actuation 1 - 2 puffs IH Q4HP PRN Shortness 03/24/20 04/06/23 History aerosol inhaler Of Breath Or Wheezing amlodipine 10 mg tablet 10 mg PO DAILY 03/24/20 04/06/23 History escitalopram oxalate 20 mg tablet 20 mg PO DAILY 03/24/20 04/06/23 History bisoprolol fumarate 5 mg tablet 5 mg PO DAILY 08/12/22 04/06/23 History pantoprazole 40 mg tablet,delayed 40 mg PO DAILY 08/12/22 04/06/23 History release rosuvastatin 10 mg tablet 10 mg PO HS 08/12/22 04/06/23 History fluticasone fur. 100 mcg-umeclid 1 inh inhalation DAILY 04/06/23 04/06/23 History 62.5 mcg-vilant 25 mcg inhalat.powder (Trelegy Ellipta) furosemide 20 mg tablet 20 mg PO MOWEFR 04/06/23 04/07/23 History ipratropium 20 mcg-albuterol 100 1 puff inhalation QID 04/06/23 04/06/23 History mcg/actuation mist for inhalation (Combivent Respimat) lisinopril 20 1 tab PO DAILY 04/07/23 04/07/23 History mg-hydrochlorothiazide 12.5 mg tablet New Prescriptions to Start Prescriptions: Allergies Allergy/AdvReac Type Severity Reaction Status Date / Time erythromycin base Allergy Unknown NA-NAUSEA/V Verified 11/19/18 11:23 [ERYTHROMYCIN BASE] OMITING Results Laboratory Findings 04/09/23 06:18 04/09/23 06:18 ABG ABG pH 7.32 mmol/L (7.35-7.45) L 04/06/23 18:09 ABG pCO2 45.1 mmhg (35.0-45.0) H 04/06/23 18:09 ABG pO2 82.6 mmhg (80-100) 04/06/23 18:09 ABG O2 Saturation 95 % (90-100) 04/06/23 18:09 Abnormal lab findings: Abnormal Labs 04/06/23 04/06/23 04/06/23 14:15 14:21 18:09 RBC 4.19 L Hgb Hct MCV 100.9 H MCH 33.8 H Neut % (Auto) 91.6 H Lymph % (Auto) 4.2 L Neut # (Auto) 8.8 H Lymph # (Auto) 0.4 L Neutrophils % (Manual) 93 H Lymphocytes % (Manual) 4 L ABG pH 7.32 L ABG pCO2 45.1 H ABG Base Excess -3.4 L VBG pH 7.26 L VBG pCO2 57.1 H Sodium 125 L Chloride 84 L Anion Gap 15.8 H BUN 29 H Creatinine 1.80 H Estimated GFR 38 L Est GFR ( Amer) 46 L Glucose 106 H AST 166 H ALT 122 H NT-Pro-B Natriuret Pep 547 H 04/07/23 05:45 RBC 3.82 L Hgb 12.9 L Hct 38.7 L MCV 101.3 H MCH 33.8 H Neut % (Auto) 92.1 H Lymph % (Auto) 4.3 L Neut # (Auto) Lymph # (Auto) 0.3 L Neutrophils % (Manual) 90 H Lymphocytes % (Manual) 6 L ABG pH ABG pCO2 ABG Base Excess VBG pH VBG pCO2 Sodium 125 L Chloride 91 L Anion Gap BUN 33 H Creatinine 1.70 H Estimated GFR 40 L Est GFR ( Amer) 49 L Glucose 135 H D AST ALT NT-Pro-B Natriuret Pep Assessment and Plan *Assessment and plan (1) Acute exacerbation of chronic obstructive pulmonary disease: Status: Acute Category: Medical Code(s): J44.1 - Chronic obstructive pulmonary disease with (acute) exacerbation (2) Acute on chronic respiratory failure with hypoxia and hypercapnia: Status: Acute Category: Medical Code(s): J96.21 - Acute and chronic respiratory failure with hypoxia; J96.22 - Acute and chronic respiratory failure with hypercapnia Plan Ms. Flores is a 66-year-old male current smoker greater than 30 with medical diagnoses given Trelegy inhaler, chronic hypoxic respiratory failure, oxygen at baseline last seen in the hospital August 2022 for COPD exacerbation community- acquired pneumonia presented again to the hospital with worsening respiratory distress. Afebrile. No evidence of leukocytosis upon admission. ABG upon admission Did not show evidence of severe hypoxic respiratory failure. Mild hypercarbic respiratory failure. CTA upon this admission reviewed, no evidence of pulmonary embolism. Right lower lobe pleural-based airspace disease. The patient did have a smaller nodule on her prior CT from at the same location. Patient was initiated on cefepime and vancomycin along with DuoNebs every 6 scheduled. Plan: Continue DuoNebs every 4 hours along with Pulmicort every 12 scheduled Continue methylprednisolone IV daily Continue oxygen supplementation to maintain O2 saturation below 90% and above Patient does not need BiPAP therapy at this point of time given no significant evidence of hypercarbic respiratory failure. # Thank for involving pulmonary in this patient care. Will continue to monitor.
--- NOTE | 2023-04-07 09:28 | HMH.PHAINT1 ---
Pharmacy Intervention Comments: Home med list verified with patient at bedside and with external pharmacy list.
--- NOTE | 2023-04-07 12:26 | EXP.CARD.CON ---
History of Present Illness History of Present Illness Consult date: 04/07/23 Requesting physician: Hernan Tam Chief complaint: tachycardia Additional Medical History:: 1. COPD A. Home oxygen 4 L/min B. Tobacco use 2. Hypertension 3. Hyperlipidemia 4. Obesity History of present illness: 67-year-old white male with longstanding COPD and home oxygen use at 4 L/min admitted for acute exacerbation. During his stay on telemetry there has been recurrent episodes of sinus tachycardia up to 160 bpm. Patient has no previous cardiac history. He normally takes bisoprolol 5 mg daily at home but has not had that today. Review of the chart reportedly has a diagnosis of HFpEF with last echocardiogram August 2022 showing EF 55-60% with no significant valve disease. Right ventricle mildly dilated and the right ventricular systolic function noted to be mildly reduced. Right ventricular systolic pressure estimated at 49 mmHg. Cardiology consulted for evaluation and recommendations. Troponins are normal this admission. BNP only mildly elevated at 547. Elevated LFTs noted, renal insufficiency with creatinine 1.7 GFR 40 and sodium of 125. CT of the chest without contrast August 2022 does show coronary artery calcifications diffusely. [facility] Disclaimer: The information contained in this section may have been updated after the patient was seen, as this information can be updated by other users. Medical History (Updated 04/07/23 @ 13:18 by SUMMER Last) Alcohol use disorder, severe, in early remission CAP (community acquired pneumonia) COPD (chronic obstructive pulmonary disease) Hyperlipidemia Hypertension Obesity (BMI 30-39.9) Tobacco dependence Surgical History History of colonoscopy Family History Father Mother Lung cancer Mother COPD (chronic obstructive pulmonary disease) Father Social History (Updated 04/06/23 @ 17:57 by Franchesca Chawla RN) Smoking Status: Current every day smoker tobacco type: cigarettes packs per day: 2 second hand exposure: No alcohol intake: current current occupational status: disabled Travel in the last 8 weeks: None household members: significant other caffeine: No Review of Systems Review of Systems Review of systems:: pertinent systems reviewed and negative unless documented below *Cardiovascular Cardiovascular: Denies chest pain, Reports dyspnea and Reports dyspnea on exertion *Respiratory Respiratory: Reports chest congestion, Reports cough, Reports dyspnea and Reports dyspnea on exertion Exam Data for Last 24 hours Vital signs and Labs for Last 24 Hours: Temp Pulse Resp BP Pulse Ox O2 Del Method O2 Flow Rate 97.9 F 109 H 26 H 181/87 H 88 L Nasal Cannula 4 04/07/23 08:00 04/07/23 10:00 04/07/23 10:00 04/07/23 10:00 04/07/23 10:00 04/07/23 11:00 04/07/23 11:00 FiO2 30 04/07/23 06:00 Laboratory Results - last 24 hr 04/06/23 14:11: Lactate 1.7 04/06/23 14:15: WBC 9.6, RBC 4.19 L, Hgb 14.2, Hct 42.3, MCV 100.9 H, MCH 33.8 H, MCHC 33.5, RDW 13.8, Plt Count 156, MPV 7.6, Neut % (Auto) 91.6 H, Lymph % (Auto) 4.2 L, [place] % (Auto) 3.6, Eos % (Auto) 0.2, Baso % (Auto) 0.3, Neut # (Auto) 8.8 H, Lymph # (Auto) 0.4 L, [place] # (Auto) 0.4, Eos # (Auto) 0.0, Baso # (Auto) 0.0, Total Counted 100, Neutrophils % (Manual) 93 H, Lymphocytes % (Manual) 4 L, Monocytes % (Manual) 2, Basophils % (Manual) 1.0, Platelet Estimate Normal, Macrocytosis 1+, Sodium 125 L, Potassium 4.8, Chloride 84 L, Carbon Dioxide 30, Anion Gap 15.8 H, BUN 29 H, Creatinine 1.80 H, Estimated Creat Clear 46, Estimated GFR 38 L, Est GFR ( Amer) 46 L, Glucose 106 H, Calcium 8.6, Total Bilirubin 0.5, AST 166 H, ALT 122 H, Alkaline Phosphatase 90, Troponin I < 0.01, NT-Pro-B Natriuret Pep 547 H, Total Protein 7.4, Albumin 4.3, Globulin 3.1, Albumin/Globulin Ratio 1.4 04/06/23 14:20: Chlamy pneumoniae PCR TNP, Adenovirus (PCR) Not detected, B. pertussis DNA (PCR) TNP, Coronavirus OC43 (PCR) Not detected, Coronavirus HKU1 (PCR) Not detected, Coronavirus 229E (PCR) Not detected, SARS-CoV-2 (PCR) Not detected, Coronavirus NL63 (PCR) Not detected, Human Metapneumovir PCR Not detected, Influenza A (H1) PCR Not detected, Influ A (H1N1/09) PCR Not detected, Influenza A (H3) PCR Not detected, Influenza Type A (PCR) Not detected, Influenza Type B (PCR) Not detected, M. pneumoniae (PCR) TNP, Parainfluenza 1 (PCR) Not detected, Parainfluenza 2 (PCR) Not detected, Parainfluenza 3 (PCR) Not detected, Parainfluenza 4 (PCR) Not detected, RSV (PCR) Not detected, Entero/Rhino (PCR) Not detected 04/06/23 14:21: VBG pH 7.26 L, VBG pCO2 57.1 H, VBG pO2 35.0, VBG HCO3 25.2, VBG Total CO2 27.0, VBG O2 Saturation 63.0, VBG Base Excess -1.8 04/06/23 17:30: Troponin I 0.02 04/06/23 18:09: Specimen Source Right radial, O2 % 3l nc, ABG pH 7.32 L, ABG pCO2 45.1 H, ABG pO2 82.6, ABG HCO3 22.7, ABG Total CO2 24.1, ABG O2 Saturation 95, ABG Base Excess -3.4 L, Sukumar Test Acceptable 04/06/23 20:10: Troponin I 0.01 04/07/23 05:45: WBC 7.5, RBC 3.82 L, Hgb 12.9 L, Hct 38.7 L, MCV 101.3 H, MCH 33.8 H, MCHC 33.3, RDW 13.8, Plt Count 144, MPV 7.8, Neut % (Auto) 92.1 H, Lymph % (Auto) 4.3 L, [place] % (Auto) 3.3, Eos % (Auto) 0.1, Baso % (Auto) 0.2, Neut # (Auto) 6.9, Lymph # (Auto) 0.3 L, [place] # (Auto) 0.2, Eos # (Auto) 0.0, Baso # (Auto) 0.0, Total Counted 100, Neutrophils % (Manual) 90 H, Lymphocytes % (Manual) 6 L, Monocytes % (Manual) 4, Platelet Estimate Normal, Macrocytosis 1+, Sodium 125 L, Potassium 4.5, Chloride 91 L, Carbon Dioxide 28, Anion Gap 10.5, BUN 33 H, Creatinine 1.70 H, Estimated Creat Clear 48, Estimated GFR 40 L, Est GFR ( Amer) 49 L, Glucose 135 H D, Calcium 8.4 I & O for Last 24 hours: Intake & Output 04/05/23 04/06/23 04/07/23 04/08/23 11:59 11:59 11:59 11:59 Intake Total 660 / 660 Output Total 1025 / 1025 Balance -365 / -365 Weight 179 lb 0.246 oz Constitutional Constitutional: no acute distress *Routine Respiratory Exam Respiratory: Present rhonchi and wheezes *Routine Cardiovascular Exam Cardiovascular: Present RRR; Absent murmur, gallop or rubs *Routine Extremities Exam Extremities: Absent edema *Routine Neurological Exam Neurological: Present alert and oriented X3 Meds Home Medications and Allergies Home Medications Medication Instructions Recorded Confirmed Type albuterol sulfate 90 mcg/actuation 1 - 2 puffs IH Q4HP PRN Shortness 03/24/20 04/06/23 History aerosol inhaler Of Breath Or Wheezing amlodipine 10 mg tablet 10 mg PO DAILY 03/24/20 04/06/23 History escitalopram oxalate 20 mg tablet 20 mg PO DAILY 03/24/20 04/06/23 History bisoprolol fumarate 5 mg tablet 5 mg PO DAILY 08/12/22 04/06/23 History pantoprazole 40 mg tablet,delayed 40 mg PO DAILY 08/12/22 04/06/23 History release rosuvastatin 10 mg tablet 10 mg PO HS 08/12/22 04/06/23 History fluticasone fur. 100 mcg-umeclid 1 inh inhalation DAILY 04/06/23 04/06/23 History 62.5 mcg-vilant 25 mcg inhalat.powder (Trelegy Ellipta) furosemide 20 mg tablet 20 mg PO MOWEFR 04/06/23 04/07/23 History ipratropium 20 mcg-albuterol 100 1 puff inhalation QID 04/06/23 04/06/23 History mcg/actuation mist for inhalation (Combivent Respimat) lisinopril 20 1 tab PO DAILY 04/07/23 04/07/23 History mg-hydrochlorothiazide 12.5 mg tablet New Prescriptions to Start Prescriptions: Allergies Allergy/AdvReac Type Severity Reaction Status Date / Time erythromycin base Allergy Unknown NA-NAUSEA/V Verified 11/19/18 11:23 [ERYTHROMYCIN BASE] OMITING Assessment and Plan *Assessment and plan (1) Acute exacerbation of chronic obstructive pulmonary disease: Status: Acute Category: Medical Code(s): J44.1 - Chronic obstructive pulmonary disease with (acute) exacerbation (2) Acute hypercapnic respiratory failure: Status: Acute Category: Medical Code(s): J96.02 - Acute respiratory failure with hypercapnia (3) RUBENS (acute kidney injury): Status: Acute Category: Medical Code(s): N17.9 - Acute kidney failure, unspecified (4) Acute hyponatremia: Status: Acute Category: Medical Code(s): E87.1 - Hypo-osmolality and hyponatremia (5) Abnormal transaminases: Status: Acute Category: Medical Code(s): R74.8 - Abnormal levels of other serum enzymes (6) CAP (community acquired pneumonia): Status: Acute Qualifiers: Laterality: right Lung location: lower lobe of lung Qualified Code(s): J18.9 - Pneumonia, unspecified organism Category: Medical Code(s): J18.9 - Pneumonia, unspecified organism (7) Acute heart failure with preserved ejection fraction (HFpEF): Status: Acute Category: Medical Code(s): I50.31 - Acute diastolic (congestive) heart failure (8) Tobacco dependence: Status: Acute Category: Medical Code(s): F17.200 - Nicotine dependence, unspecified, uncomplicated (9) Tachycardia, paroxysmal: Status: Acute Category: Medical Code(s): I47.9 - Paroxysmal tachycardia, unspecified Plan 1. Paroxysmal tachycardia, appears to be sinus vs SVT -Start bisoprolol 5 mg twice daily and continue to monitor on telemetry. -Obtain echocardiogram 2. Acute exacerbation of COPD with hypercapnia respiratory failure pneumonia -Defer to hospitalist and pulmonary 3. Coronary artery calcification on CT -Will need workup once pulmonary status improved either inpatient or outpatient -Troponins normal this admission 4. Hyponatremia -Defer to hospitalist 5. Abnormal transaminases -Defer to hospitalist -Continue to hold statin therapy Nothing further to add at this time. Please call if needed over the weekend and if patient is still here on Monday we will resume seeing him.
[2023-04-07] MEDS: METHYLPREDNISOLONE SOD SUCC 40MG VIAL 40 MG IV ×2 (12:40→23:58)
--- NOTE | 2023-04-07 13:03 | CA_ITS ---
APPROVED REPORT EXAM: Comprehensive 2D, Doppler, and color-flow Echocardiogram No Bake Molder: CLEMENTE Mccurdy, RVS Ht: 5 ft 10 in Wt: 179lbs BSA: 1.99 BP: 144/78 mmHg Indications: COPD exacerbation, ETOH disorder, Smoker, HTN, HLD Echo Enhancing Agent Comments: Patient supine/upright/hyperventilated throughout exam. TDS Subcostal images only 2D Dimensions IVSd 1.22 cm LVEF (Visual) 68.70 % PWd 1.18 cm LA Volume 44.80 mL LVDd 5.10 cm LA Volume Index 22.744283 mL/m2 (M/F) 16-34 LVDs 3.13 cm EF AP4 41.20 % Left Atrium 2.81 cm GL Strain -20.5 % M-Mode Dimensions TAPSE 3.01 (<1.7) LV Diastology E Decel Time 270 (160-240 msec) E/A Ratio 0.61 MED A' 3.90 cm/s LAT A' 8.50 cm/s Aortic Valve RASHI Index 1.94 cm2/m2 AoV Peak Eron. 113.0 (50-130 cm/s) AO Peak GR. 5.10 mmHg AO Mean GR. 2.50 (<5 mmHg) AO VTI 15.8 (18-25 cm) RASHI (VTI) 3.95 (2.5-4.5 cm2) Mitral Valve MV A Velocity 76.0 (40-130 cm/s) E/A Ratio 0.61 Tricuspid Valve TR P. Velocity 279.00 cm/s RAP Estimate 10.00 mmHg RVSP 41.20 mmHg Left Ventricle The left ventricle is normal size. The left ventricular systolic function is normal. The left ventricular ejection fraction is within the normal range. There is normal left ventricular wall thickness. There is normal LV segmental wall motion. The left ventricular diastolic function is normal. LVEF is 55%. Right Ventricle Right ventricle is mildly dilated. Right ventricle is mildly hypokinetic. Atria The left atrium size is normal. The right atrium size is normal. There is no Doppler evidence of interatrial shunt. Aortic Valve The aortic valve is normal in structure. There is no aortic valvular stenosis. No aortic regurgitation is present. Mitral Valve The mitral valve is normal in structure. No evidence of mitral valve stenosis. Trace mitral regurgitation. Tricuspid Valve The tricuspid valve leaflets are thin and pliable. Mild tricuspid regurgitation. RVSP is 25 mmHg + RA pressure. Pulmonic Valve The pulmonic valve is not well visualized. Great Vessels The aortic root is not well visualized. The IVC is not well visualized. Pericardium There is no pericardial effusion. Other Information Study Quality: Technically Difficult Conclusion Technically difficult study due to poor accoustic windows. Normal LV systolic function. Mildly dilated RV with mild reduction in RV systolic function. Mild TR. RVSP 25 mmHg + RA pressure. Electronically signed by : Nay Smith MD 04/09/2023 16:35:17
--- NOTE | 2023-04-07 13:17 | PC.NURSE ---
All care charting and care completed by Artur Douglass was done under the direct supervision of myself.
[2023-04-07] MEDS: BISOPROLOL 5MG TABLET 5 MG PO ×2 (13:42→20:52)
--- NOTE | 2023-04-07 13:45 | P.PN_ITS ---
Subjective *Date: 04/07/23 *Time: 13:45 Interval history: still has SOB, denied CP, N/V, diarrhea, he had no acute evnts overnight Exam Data for Last 24 hours Vital signs and Labs for Last 24 Hours: Temp Pulse Resp BP Pulse Ox O2 Del Method O2 Flow Rate 97.9 F 86 22 122/75 93 L Nasal Cannula 4 04/07/23 08:00 04/07/23 13:34 04/07/23 12:00 04/07/23 12:00 04/07/23 12:00 04/07/23 13:00 04/07/23 13:00 FiO2 30 04/07/23 06:00 Laboratory Results - last 24 hr 04/06/23 14:11: Lactate 1.7 04/06/23 14:15: WBC 9.6, RBC 4.19 L, Hgb 14.2, Hct 42.3, MCV 100.9 H, MCH 33.8 H , MCHC 33.5, RDW 13.8, Plt Count 156, MPV 7.6, Neut % (Auto) 91.6 H, Lymph % (Auto) 4.2 L, [place] % (Auto) 3.6, Eos % (Auto) 0.2, Baso % (Auto) 0.3, Neut # (Auto) 8.8 H, Lymph # (Auto) 0.4 L, [place] # (Auto) 0.4, Eos # (Auto) 0.0, Baso # (Auto) 0.0, Total Counted 100, Neutrophils % (Manual) 93 H, Lymphocytes % (Manual) 4 L, Monocytes % (Manual) 2, Basophils % (Manual) 1.0, Platelet Estimate Normal, Macrocytosis 1+, Sodium 125 L, Potassium 4.8, Chloride 84 L, Carbon Dioxide 30, Anion Gap 15.8 H, BUN 29 H, Creatinine 1.80 H, Estimated Creat Clear 46, Estimated GFR 38 L, Est GFR ( Amer) 46 L, Glucose 106 H, Calcium 8.6, Total Bilirubin 0.5, AST 166 H, ALT 122 H, Alkaline Phosphatase 90, Troponin I < 0.01, NT-Pro-B Natriuret Pep 547 H, Total Protein 7.4, Albumin 4.3, Globulin 3.1, Albumin/Globulin Ratio 1.4 04/06/23 14:20: Chlamy pneumoniae PCR TNP, Adenovirus (PCR) Not detected, B. pertussis DNA (PCR) TNP, Coronavirus OC43 (PCR) Not detected, Coronavirus HKU1 (PCR) Not detected, Coronavirus 229E (PCR) Not detected, SARS-CoV-2 (PCR) Not detected, Coronavirus NL63 (PCR) Not detected, Human Metapneumovir PCR Not detected, Influenza A (H1) PCR Not detected, Influ A (H1N1/09) PCR Not detected, Influenza A (H3) PCR Not detected, Influenza Type A (PCR) Not detected, Influenza Type B (PCR) Not detected, M. pneumoniae (PCR) TNP, Parainfluenza 1 (PCR) Not detected, Parainfluenza 2 (PCR) Not detected, Parainfluenza 3 (PCR) Not detected, Parainfluenza 4 (PCR) Not detected, RSV (PCR) Not detected, Entero/Rhino (PCR) Not detected 04/06/23 14:21: VBG pH 7.26 L, VBG pCO2 57.1 H, VBG pO2 35.0, VBG HCO3 25.2, VBG Total CO2 27.0, VBG O2 Saturation 63.0, VBG Base Excess -1.8 04/06/23 17:30: Troponin I 0.02 04/06/23 18:09: Specimen Source Right radial, O2 % 3l nc, ABG pH 7.32 L, ABG pCO2 45.1 H, ABG pO2 82.6, ABG HCO3 22.7, ABG Total CO2 24.1, ABG O2 Saturation 95, ABG Base Excess -3.4 L, Sukumar Test Acceptable 04/06/23 20:10: Troponin I 0.01 04/07/23 05:45: WBC 7.5, RBC 3.82 L, Hgb 12.9 L, Hct 38.7 L, MCV 101.3 H, MCH 33.8 H, MCHC 33.3, RDW 13.8, Plt Count 144, MPV 7.8, Neut % (Auto) 92.1 H, Lymph % (Auto) 4.3 L, [place] % (Auto) 3.3, Eos % (Auto) 0.1, Baso % (Auto) 0.2, Neut # (Auto) 6.9, Lymph # (Auto) 0.3 L, [place] # (Auto) 0.2, Eos # (Auto) 0.0, Baso # (Auto) 0.0, Total Counted 100, Neutrophils % (Manual) 90 H, Lymphocytes % (Manual) 6 L, Monocytes % (Manual) 4, Platelet Estimate Normal, Macrocytosis 1+, Sodium 125 L, Potassium 4.5, Chloride 91 L, Carbon Dioxide 28, Anion Gap 10.5, BUN 33 H, Creatinine 1.70 H, Estimated Creat Clear 48, Estimated GFR 40 L, Est GFR ( Amer) 49 L, Glucose 135 H D, Calcium 8.4 I & O for Last 24 hours: Intake & Output 04/04/23 04/05/23 04/06/23 04/07/23 23:59 23:59 23:59 23:59 Intake Total 660 / 660 Output Total 450 / 650 675 / 675 Balance -450 / 10 -15 / -15 Weight 81.647 kg 81.2 kg Constitutional Constitutional: no acute distress *Routine HEENT Exam Head: Present normocephalic Eye: Present EOMI and PERRL ENT: Present mucous membranes moist *Routine Neck Exam Neck: Present supple; Absent lymphadenopathy *Routine Respiratory Exam Respiratory: Present distant breath sounds and diminished air movement *Routine Cardiovascular Exam Cardiovascular: Present RRR *Routine Abdominal Exam Abdominal: Present soft and normoactive bowel sounds; Absent tenderness *Routine Extremities Exam Extremities: Absent cyanosis, clubbing or edema *Routine Skin Exam Skin: Present warm; Absent rash *Routine Neurological Exam Neurological: Present alert and oriented X3 Assessment and Plan *Assessment and plan (1) Acute exacerbation of chronic obstructive pulmonary disease: Status: Acute Category: Medical Code(s): J44.1 - Chronic obstructive pulmonary disease with (acute) exacerbation (2) Acute hypercapnic respiratory failure: Status: Acute Category: Medical Code(s): J96.02 - Acute respiratory failure with hypercapnia (3) RUBENS (acute kidney injury): Status: Acute Category: Medical Code(s): N17.9 - Acute kidney failure, unspecified (4) Acute hyponatremia: Status: Acute Category: Medical Code(s): E87.1 - Hypo-osmolality and hyponatremia (5) CAP (community acquired pneumonia): Status: Acute Qualifiers: Laterality: right Lung location: lower lobe of lung Qualified Code(s): J18.9 - Pneumonia, unspecified organism Category: Medical Code(s): J18.9 - Pneumonia, unspecified organism (6) Alcohol use disorder, severe, in early remission: Status: Acute Category: Medical Code(s): F10.21 - Alcohol dependence, in remission (7) Tobacco dependence: Status: Acute Category: Medical Code(s): F17.200 - Nicotine dependence, unspecified, uncomplicated Plan Patient is a 67-year-old male with past medical history of COPD on 4 L nasal cannula at baseline who presented to hospital due to shortness of breath. Patient mentions he has been having worsening respiratory distress for the past few days, which is not improving, so he decided to come to the hospital. He also has past medical history of heart failure with preserved ejection fraction alcohol use, tobacco dependence. Assessment COPD exacerbation Acute hypoxic hypercapnic respiratory failure satting less than 90% on room air Right lower lung masslike opacity suggestive of pneumonia, cannot rule out tumor Acute kidney injury Tobacco abuse Alcohol use disorder Chronic heart failure with preserved ejection fraction Sinus trachycardia Plan DuoNeb every 4 hours scheduled IV Solu-Medrol every 6 hours continue IV vancomycin, cefepime Consult pulmonary Gentle IV fluid therapy with normal saline Hold nephrotoxic medications consulted Nicotine patch Monitor and replace electrolytes DVT prophylaxis-heparin
[2023-04-07] MEDS: 0.9 % SODIUM CHLORIDE 1000ML 1,000 ML 75 ML IV (15:24)
[2023-04-07] MEDS: ACETAMINOPHEN 325MG TAB 650 MG PO (16:34)
--- NOTE | 2023-04-07 16:53 | PC.NURSE ---
multiple shift intake charted at this time
--- NOTE | 2023-04-07 16:59 | PC.NURSE ---
pt now satting 99% on 4L NC, which is pt baseline @ home. pt has been c/o slight SOB throughout shift, but breathing tx have seemed to help. pt has been AxO x4 throughout shift. pt has had one c/o pain in rt hip and rt lower back. tylenol given per MD orders for c/o pain. pt has appeared to rest in bed throughout shift. pt has been voiding per urinal, pt has not been out of bed this shift at this time. pt lung sounds diminished and wheezes heard throughout. bowel sounds active in all four quads. integumentary system within normal limits. NAD noted. cardiology consulted on pt d/t run of tachycardia in 160s. cardio ordered pt home med bisoprolol. pt HR has remained in NSR since admin of med. Alcaraz
[2023-04-07 17:14] LABS: Coronavirus 19, PCR Not Detected (NotDetected); Influenza A, PCR Not Detected (NotDetected); Influenza B, PCR Not Detected (NotDetected)
[2023-04-07] MEDS: BUDESONIDE 0.5MG/2ML NEB 0.5 MG IH (18:12)
[2023-04-07] MEDS: VANCOMYCIN/WATER FOR INJ (PEG) 1.25 GM/250 ML PIGGYBACK IV (20:52)
[2023-04-08] VITALS (20 sets, daily range): BP systolic 113–155; BP diastolic 67–87; PULSE 57–104; RESP 17–24; TEMP 36.6–36.7; O2SAT 91–98; BMI 25.3
[2023-04-08] MEDS: IPRATROPIUM/ALBUTEROL 3 ML NEB IH ×6 (01:55→22:33)
[2023-04-08] MEDS: 0.9 % SODIUM CHLORIDE 1000ML 1,000 ML 75 ML IV (02:58)
[2023-04-08] MEDS: CEFEPIME HCL 2 GM in 0.9 % SODIUM CHLORIDE 100 ML IV ×3 (02:58→18:15)
[2023-04-08] MEDS: HEPARIN SODIUM 5,000 UNIT/ML VIAL 5000 UNIT SQ ×3 (02:58→18:15)
[2023-04-08] MEDS: BUDESONIDE 0.5MG/2ML NEB 0.5 MG IH ×2 (06:25→18:29)
[2023-04-08 06:53] LABS: Basophils % 0.1 % (0.1-2.0); Hemoglobin 12.6 g/dL (14.1-18.0); Lymphocytes # 0.3 K/mm3 (0.7-4.5); Lymphocytes % 4.4 % (10-50); Mean Corpuscular HGB Conc 34.1 g/dL (31.8-35.4); Mean Corpuscular Hemoglobin 34.1 pg (27.0-31.2); Mean Platelet Volume 7.8 fl (7.4-10.4); Monocytes # 0.3 K/mm3 (0.1-1.0); Monocytes % 3.9 % (1.7-9.3); Neutrophils # 6.1 K/mm3 (1.8-7.8); Neutrophils % 91.6 % (37.0-80.0); Platelet Count 173 K/mm3 (142-424); Red Cell Distribution Width 13.5 % (11.5-17.5); White Blood Count 6.7 K/mm3 (4.8-10.8)
[2023-04-08 06:58] LABS: Anion Gap 6.5 mEq/L (5-15); Blood Urea Nitrogen 25 mg/dl (9-20); Calcium 8.5 mg/dl (8.4-10.2); Carbon Dioxide 30 mmol/L (22.0-30.0); Chloride 99 mmol/L (98-107); Creatinine Clearance Estimated 81 mL/min (50-200); Estimated Glomerular Filt Rate 75 ml/min (>60); GFR (African American) 90 ML/MIN (>60); Glucose 107 mg/dl (74-100); Potassium 4.5 mmoL/L (3.5-5.1); Sodium 131 mmol/L (136-145)
[2023-04-08 07:32] LABS: MANUAL DIFFERENTIAL MANUAL DIFFERENTIAL (MANUAL DIFF)
[2023-04-08 08:22] LABS: Lymphocytes % 7 % (10-50); Monocytes % 3 % (2-9); Neutrophils % 90 % (42-76); Total Cells Counted 100
[2023-04-08 08:23] LABS: Macrocytosis 1+; Platelet Estimate Normal
[2023-04-08] MEDS: BISOPROLOL 5MG TABLET 5 MG PO ×2 (08:38→20:57)
[2023-04-08] MEDS: FOLIC ACID 1MG TABLET 1 MG PO (08:38)
[2023-04-08] MEDS: NICOTINE 21MG/24HR PATCH 21 MG TD (08:38)
[2023-04-08] MEDS: THIAMINE 100MG TABLET 100 MG PO (08:38)
[2023-04-08] MEDS: METHYLPREDNISOLONE SOD SUCC 40MG VIAL 40 MG IV ×2 (10:44→23:03)
--- NOTE | 2023-04-08 11:17 | PC.NURSE ---
pt was asked to get up to chair for lunch. patient refused. nurse aware.
--- NOTE | 2023-04-08 16:52 | P.PN_ITS ---
Subjective *Date: 04/08/23 *Time: 16:52 Interval history: still has SOB but slightly better, denied CP, N/V, diarrhea, he had no acute evnts overnight Exam Data for Last 24 hours Vital signs and Labs for Last 24 Hours: Temp Pulse Resp BP Pulse Ox O2 Del Method O2 Flow Rate 97.9 F 70 22 155/87 H 91 L Nasal Cannula 4 04/08/23 15:12 04/08/23 16:00 04/08/23 15:12 04/08/23 15:12 04/08/23 15:12 04/08/23 15:12 04/08/23 15:12 FiO2 30 04/07/23 06:00 Laboratory Results - last 24 hr 04/07/23 16:54: SARS-CoV-2 (PCR) Not detected, Influenza A Untype (PCR) Not detected, Influenza Type B (PCR) Not detected 04/08/23 06:12: WBC 6.7, RBC 3.70 L, Hgb 12.6 L, Hct 37.0 L, MCV 100.0 H, MCH 34.1 H, MCHC 34.1, RDW 13.5, Plt Count 173, MPV 7.8, Neut % (Auto) 91.6 H, Lymph % (Auto) 4.4 L, [place] % (Auto) 3.9, Eos % (Auto) 0.0 L, Baso % (Auto) 0.1, Neut # (Auto) 6.1, Lymph # (Auto) 0.3 L, [place] # (Auto) 0.3, Eos # (Auto) 0.0, Baso # (Auto) 0.0, Total Counted 100, Neutrophils % (Manual) 90 H, Lymphocytes % (Manual) 7 L, Monocytes % (Manual) 3, Platelet Estimate Normal, Macrocytosis 1+, Sodium 131 L, Potassium 4.5, Chloride 99, Carbon Dioxide 30, Anion Gap 6.5, BUN 25 H, Creatinine 1.00 D, Estimated Creat Clear 81, Estimated GFR 75, Est GFR ( Amer) 90 D, Glucose 107 H, Calcium 8.5 I & O for Last 24 hours: Intake & Output 04/05/23 04/06/23 04/07/23 04/08/23 23:59 23:59 23:59 23:59 Intake Total 2164 / 2981 1297 / 1297 Output Total 450 / 650 1575 / 1575 1350 / 1350 Balance -450 / 10 589 / 1406 -53 / -53 Weight 81.647 kg 81.2 kg 80.3 kg Constitutional Constitutional: no acute distress *Routine HEENT Exam Head: Present normocephalic Eye: Present EOMI and PERRL ENT: Present mucous membranes moist *Routine Neck Exam Neck: Present supple; Absent lymphadenopathy *Routine Respiratory Exam Respiratory: Present distant breath sounds and diminished air movement *Routine Cardiovascular Exam Cardiovascular: Present RRR *Routine Abdominal Exam Abdominal: Present soft and normoactive bowel sounds; Absent tenderness *Routine Extremities Exam Extremities: Absent cyanosis, clubbing or edema *Routine Skin Exam Skin: Present warm; Absent rash *Routine Neurological Exam Neurological: Present alert and oriented X3 Assessment and Plan *Assessment and plan (1) Acute exacerbation of chronic obstructive pulmonary disease: Status: Acute Category: Medical Code(s): J44.1 - Chronic obstructive pulmonary disease with (acute) exacerbation (2) Acute hypercapnic respiratory failure: Status: Acute Category: Medical Code(s): J96.02 - Acute respiratory failure with hypercapnia (3) RUBENS (acute kidney injury): Status: Acute Category: Medical Code(s): N17.9 - Acute kidney failure, unspecified (4) Acute hyponatremia: Status: Acute Category: Medical Code(s): E87.1 - Hypo-osmolality and hyponatremia (5) CAP (community acquired pneumonia): Status: Acute Qualifiers: Laterality: right Lung location: lower lobe of lung Qualified Code(s): J18.9 - Pneumonia, unspecified organism Category: Medical Code(s): J18.9 - Pneumonia, unspecified organism (6) Alcohol use disorder, severe, in early remission: Status: Acute Category: Medical Code(s): F10.21 - Alcohol dependence, in remission (7) Tobacco dependence: Status: Acute Category: Medical Code(s): F17.200 - Nicotine dependence, unspecified, uncomplicated Plan Patient is a 67-year-old male with past medical history of COPD on 4 L nasal cannula at baseline who presented to hospital due to shortness of breath. Patient mentions he has been having worsening respiratory distress for the past few days, which is not improving, so he decided to come to the hospital. He also has past medical history of heart failure with preserved ejection fraction alcohol use, tobacco dependence. Assessment COPD exacerbation Acute hypoxic hypercapnic respiratory failure satting less than 90% on room air Right lower lung masslike opacity suggestive of pneumonia, cannot rule out tumor Acute kidney injury Tobacco abuse Alcohol use disorder Chronic heart failure with preserved ejection fraction Sinus trachycardia Plan DuoNeb every 4 hours scheduled - continue current treatment IV Solu-Medrol every 6 hours continue IV vancomycin, cefepime Consult pulmonary - recs noted Gentle IV fluid therapy with normal saline Hold nephrotoxic medications consulted Nicotine patch Monitor and replace electrolytes DVT prophylaxis-heparin
--- NOTE | 2023-04-08 16:59 | [facility].PTEV ---
Physical Therapy Evaluation Rehab PT IP Evaluation Start: 04/08/23 09:44 Freq: ONCE Status: Active Protocol: Document 04/08/23 16:46 PDESEROUX (Rec: 04/08/23 16:59 [email or web address] [id number]) Subjective/History History History Pt. is a 67 year old male w/ PMH of heart failure w/ preserved ejection fraction, alchol use, tobacco dependence , and COPD on 4 L/min nasal cannula at baseline who presents to [facility] Inpatient floor w/ c/o acute SOB/dyspnea which had been worsening over the last few days and not improving, therefore, pt. decided to admit self to hospital. Pt. reports he lives w/ his fiance in a double- wide trailer with a step to enter. Pt. reports riding around his house in his motorized W/C until the battery dies, then he ambulates from room to room to use the restroom, kitchen, and bedroom. Pt. reports, I can't breathe when he tries to ambulate. Subjective Subjective Pt. was sitting EOB upon entry into pt.'s room after being given the okay by pt. to enter into room. Pt. reports, I can't breathe w/ ambulatory tasks, therefore, pt. refused transfers and ambulation from Physical Therapist twice during initial eval. New diagnosis of cancer in past 12 No months? Rehab PT IP Eval Objective Appearance Patient Behavior Appropriate,Cooperative Patient Orientation Person,Place,Birthday, Situation Difficulty following instructions none Speech Pattern Clear,Appropriate,Coherent Ambulation Patient Able to Ambulate No Balance Sitting Balance Steady, safe Dynamic Sitting Balance Ability Good Transfers Bed Transfer Ability Supervision/Stand by ROM RLE PT ROM Status WFL LLE PT ROM Status WFL MMT RLE PT MMT WFL LLE PT MMT WFL Rehab PT IP prob,goals,plan Problems Date of Evaluation: 04/08/23 PT IP Problems Transfers,Gait,Balance,Safety Rehab Potential Rehab Potential Good Equipment Needs Assistive Devices Rolling / Wheeled Walker Plan PT Intervention Plan Transfers,Gait,Self care, Safety,Therapeutic Exercise PT Plan Frequency BID Duration LOS Discharge Goals Bed Transfer Ability Independent Sit to Stand Chair Transfer Ability Minimal x 1 (25% assist) Ambulation Assistive Device Rolling Walker Ambulation Distance (feet) 10 Discharge Plan PT Discharge Plan Upon discharge from [facility], once medically stable per MD, pt. appropriate for short term rehab to improve generalized muscle strength and endurance, but also cardiopulmonary endurance to promote quality of life. If pt. refuses placement then [facility] Physical Therapy recommended. Eval Complexity Eval Charge Codes 26850 - Low Complexity PHYSICIAN CERTIFICATION: I certify the specified therapy services for Glynn Flores are required, authorized, and reviewed every 30 days.
[2023-04-08] MEDS: VANCOMYCIN/WATER FOR INJ (PEG) 1.25 GM/250 ML PIGGYBACK IV (20:57)
[2023-04-09] VITALS (15 sets, daily range): BP systolic 105–132; BP diastolic 50–83; PULSE 56–90; RESP 19–22; TEMP 36.6–36.9; O2SAT 96–99; BMI 25.2
[2023-04-09] MEDS: IPRATROPIUM/ALBUTEROL 3 ML NEB IH ×6 (02:28→22:31)
[2023-04-09] MEDS: CEFEPIME HCL 2 GM in 0.9 % SODIUM CHLORIDE 100 ML IV ×3 (02:50→18:22)
[2023-04-09] MEDS: HEPARIN SODIUM 5,000 UNIT/ML VIAL 5000 UNIT SQ ×3 (02:50→18:22)
--- NOTE | 2023-04-09 04:56 | PC.NURSE ---
Patient had an okay night. When arriving on shift the patient was on 5L NC. Patient did end up being placed on his bipap after a coughing spell and the patient was unable to catch his breath. RN took patient off the bipap for his medications. after administration the patient wanted to be put back on the bipap because he was SOB. Patient was stating in the low 90s. RN put his back on the bipap and made respiratory aware. Sputum was sent down to lab this shift. Patient did have a small time this shift of being raina on the monitor in the 40s. RN went into the room and assessed the patient and woke the patient up. As soon as he was awoken his pulse went back into the 60s. BP was within normal limits and he was stating appropriately on bipap in the 90s. Patient stated he felt fine when i woke him up with no complaints. No other issues were made know during this shift.
[2023-04-09] MEDS: BUDESONIDE 0.5MG/2ML NEB 0.5 MG IH ×2 (06:10→18:55)
[2023-04-09 07:32] LABS: Anion Gap 6.8 mEq/L (5-15); Blood Urea Nitrogen 29 mg/dl (9-20); Calcium 8.8 mg/dl (8.4-10.2); Carbon Dioxide 32 mmol/L (22.0-30.0); Chloride 99 mmol/L (98-107); Creatinine Clearance Estimated 81 mL/min (50-200); Estimated Glomerular Filt Rate 75 ml/min (>60); GFR (African American) 90 ML/MIN (>60); Glucose 106 mg/dl (74-100); Potassium 4.8 mmoL/L (3.5-5.1); Sodium 133 mmol/L (136-145)
[2023-04-09 07:34] LABS: Eosinophils % 0.2 % (0.1-12.0); Hematocrit 38.9 % (42.0-52.0); Hemoglobin 12.6 g/dL (14.1-18.0); Lymphocytes # 0.5 K/mm3 (0.7-4.5); Mean Corpuscular HGB Conc 32.4 g/dL (31.8-35.4); Mean Corpuscular Hemoglobin 33.2 pg (27.0-31.2); Mean Corpuscular Volume 102.5 fl (80-94); Mean Platelet Volume 8.3 fl (7.4-10.4); Monocytes # 0.3 K/mm3 (0.1-1.0); Monocytes % 6.1 % (1.7-9.3); Neutrophils # 4.4 K/mm3 (1.8-7.8); Neutrophils % 84.6 % (37.0-80.0); Platelet Count 187 K/mm3 (142-424); Red Cell Distribution Width 13.7 % (11.5-17.5); White Blood Count 5.2 K/mm3 (4.8-10.8)
[2023-04-09] MEDS: THIAMINE 100MG TABLET 100 MG PO (08:45)
[2023-04-09] MEDS: BISOPROLOL 5MG TABLET 5 MG PO ×2 (08:45→21:20)
[2023-04-09] MEDS: NICOTINE 21MG/24HR PATCH 21 MG TD (08:45)
[2023-04-09] MEDS: FOLIC ACID 1MG TABLET 1 MG PO (08:45)
[2023-04-09] MEDS: METHYLPREDNISOLONE SOD SUCC 40MG VIAL 40 MG IV (10:51)
[2023-04-09] MEDS: hydroCHLOROthiazide 12.5MG CAPSULE 12.5 MG PO (13:24)
[2023-04-09] MEDS: LISINOPRIL 20MG TABLET 20 MG PO (13:24)
[2023-04-09] MEDS: FUROSEMIDE 40MG/4ML VIAL 40 MG IV (13:24)
[2023-04-09] MEDS: PANTOPRAZOLE 40MG TABLET 40 MG PO (13:24)
[2023-04-09] MEDS: CITALOPRAM 40MG TABLET 40 MG PO (13:25)
[2023-04-09] MEDS: ALPRAZolam 0.5MG TABLET 0.5 MG PO (13:25)
[2023-04-09] MEDS: AMLODIPINE 10MG TABLET 10 MG PO (13:25)
[2023-04-09] MEDS: GUAIFENESIN/DEXTROMETHORPHAN 200MG/20MG 10ML UDC 5 ML PO (14:24)
--- NOTE | 2023-04-09 17:15 | EXP.PN ---
Subjective *Date: 04/09/23 *Time: 17:15 Interval history: still has SOB and not feeling better, denied CP, N/V, diarrhea, he had no acute evnts overnight Exam Data for Last 24 hours Vital signs and Labs for Last 24 Hours: Temp Pulse Resp BP Pulse Ox O2 Del Method O2 Flow Rate 98.2 F 70 19 105/62 L 98 Nasal Cannula 4 04/09/23 15:50 04/09/23 16:00 04/09/23 15:50 04/09/23 15:50 04/09/23 15:50 04/09/23 15:50 04/09/23 15:50 FiO2 30 04/08/23 22:34 Laboratory Results - last 24 hr 04/09/23 06:18: WBC 5.2, RBC 3.80 L, Hgb 12.6 L, Hct 38.9 L, MCV 102.5 H, MCH 33.2 H, MCHC 32.4, RDW 13.7, Plt Count 187, MPV 8.3, Neut % (Auto) 84.6 H, Lymph % (Auto) 9.0 L, [place] % (Auto) 6.1, Eos % (Auto) 0.2, Baso % (Auto) 0.0 L, Neut # (Auto) 4.4, Lymph # (Auto) 0.5 L, [place] # (Auto) 0.3, Eos # (Auto) 0.0, Baso # (Auto) 0.0, Sodium 133 L, Potassium 4.8, Chloride 99, Carbon Dioxide 32 H, Anion Gap 6.8, BUN 29 H, Creatinine 1.00, Estimated Creat Clear 81, Estimated GFR 75, Est GFR ( Amer) 90, Glucose 106 H, Calcium 8.8 I & O for Last 24 hours: Intake & Output 04/06/23 04/07/23 04/08/23 04/09/23 23:59 23:59 23:59 23:59 Intake Total 2164 / 2981 1537 / 1887 1060 / 1060 Output Total 450 / 650 1575 / 1575 1650 / 1650 1300 / 1300 Balance -450 / 10 589 / 1406 -113 / 237 -240 / -240 Weight 81.647 kg 81.2 kg 80.3 kg 79.9 kg Constitutional Constitutional: no acute distress *Routine HEENT Exam Head: Present normocephalic Eye: Present EOMI and PERRL ENT: Present mucous membranes moist *Routine Neck Exam Neck: Present supple; Absent lymphadenopathy *Routine Respiratory Exam Respiratory: Present distant breath sounds and diminished air movement *Routine Cardiovascular Exam Cardiovascular: Present RRR *Routine Abdominal Exam Abdominal: Present soft and normoactive bowel sounds; Absent tenderness *Routine Extremities Exam Extremities: Absent cyanosis, clubbing or edema *Routine Skin Exam Skin: Present warm; Absent rash *Routine Neurological Exam Neurological: Present alert and oriented X3 Assessment and Plan *Assessment and plan (1) Acute exacerbation of chronic obstructive pulmonary disease: Status: Acute Category: Medical Code(s): J44.1 - Chronic obstructive pulmonary disease with (acute) exacerbation (2) Acute hypercapnic respiratory failure: Status: Acute Category: Medical Code(s): J96.02 - Acute respiratory failure with hypercapnia (3) RUBENS (acute kidney injury): Status: Acute Category: Medical Code(s): N17.9 - Acute kidney failure, unspecified (4) Acute hyponatremia: Status: Acute Category: Medical Code(s): E87.1 - Hypo-osmolality and hyponatremia (5) CAP (community acquired pneumonia): Status: Acute Qualifiers: Laterality: right Lung location: lower lobe of lung Qualified Code(s): J18.9 - Pneumonia, unspecified organism Category: Medical Code(s): J18.9 - Pneumonia, unspecified organism (6) Alcohol use disorder, severe, in early remission: Status: Acute Category: Medical Code(s): F10.21 - Alcohol dependence, in remission (7) Tobacco dependence: Status: Acute Category: Medical Code(s): F17.200 - Nicotine dependence, unspecified, uncomplicated Plan Patient is a 67-year-old male with past medical history of COPD on 4 L nasal cannula at baseline who presented to hospital due to shortness of breath. Patient mentions he has been having worsening respiratory distress for the past few days, which is not improving, so he decided to come to the hospital. He also has past medical history of heart failure with preserved ejection fraction alcohol use, tobacco dependence. Assessment COPD exacerbation Acute hypoxic hypercapnic respiratory failure satting less than 90% on room air Right lower lung masslike opacity suggestive of pneumonia, cannot rule out tumor Acute kidney injury Tobacco abuse Alcohol use disorder Chronic heart failure with preserved ejection fraction Sinus trachycardia Plan DuoNeb every 4 hours scheduled - continue current treatment IV Solu-Medrol every 6 hours continue IV vancomycin, cefepime Consult pulmonary - recs noted Gentle IV fluid therapy with normal saline Hold nephrotoxic medications consulted Nicotine patch Monitor and replace electrolytes DVT prophylaxis-heparin continue current regimen, wean o2 as tolerated
[2023-04-09] MEDS: PHA TO NURSING INSTRUCTION 1 EACH NOTAPPLIC (20:05)
[2023-04-09 20:31] LABS: Vancomycin,Trough 11.5 ug/mL (5.0-10.0)
--- NOTE | 2023-04-09 21:19 | PC.NURSE ---
Spoke to Trey from pharmacy about result of vanc trough being 11.5, stated its fine to go on and give ordered vancomycin
[2023-04-09] MEDS: VANCOMYCIN/WATER FOR INJ (PEG) 1.25 GM/250 ML PIGGYBACK IV (21:20)
[2023-04-10] VITALS (27 sets, daily range): BP systolic 105–135; BP diastolic 56–79; PULSE 64–90; RESP 16–22; TEMP 36.5–37.1; O2SAT 93–100; BMI 25.3
--- NOTE | 2023-04-10 | IR_ITS ---
APPROVED REPORT Patient Location: Inpatient Manager Sign: ESTELA Beasley RT (R) PROCEDURES Right heart catheterization Left heart catheterization Left ventriculogram Selective coronary angiogram INDICATION Angina pectoris, Abnormal CT with coronary artery calcification, Dyspnea, Suspect pulmonary hypertension, Informed consent was obtained prior to the procedure. COMPLICATIONS None Estimated Blood Loss: Less than 10 mls TECHNIQUE One percent lidocaine was used to anesthetize the right anterior aspect of the right wrist. The right radial artery was accessed via the Seldinger technique and a 6 Ukrainian hydrophilic sheath was placed in the right radial artery. Following this one percent lidocaine was used to anesthetize the right anterior aspect of the right neck. The right internal jugular vein was accessed via the Seldinger technique and a 7 Ukrainian sheath was placed in the right internal jugular vein. Following this an arterial cocktail was administered using 5000U heparin, 2.5 mg verapamil, 1mg Lidocaine and 800mcg nitroglycerin into the right radial sheath. A papa catheter was used to perform left heart catheterization left ventriculogram and selective coronary angiography while a Lima-Shital catheter was used to perform right heart catheterization. Saturations were obtained in the pulmonary artery and right atrium. At the end of the procedure the arterial sheath was removed good hemostasis was achieved using Traclet band. Patient was transferred to the postop holding area in stable condition for venous sheath removal. ANGIOGRAPHIC RESULTS The left main artery Normal The left anterior descending artery Has proximal and mid vessel diffuse 10% calcific stenoses The circumflex artery Nondominant yet still large with proximal and mid vessel 10% stenoses with 10% stenoses in the first and second obtuse marginal artery The right coronary artery Is dominant and has proximal 20 to 30% stenosis with mid vessel diffuse 10 to 20% stenoses The WHITE ventriculogram reveals Normal 65% The left ventricular end-diastolic pressure 15 to 18 mmHg Right atrial pressure 7 mmHg Pulmonary artery pressure 32/20 mmHg Pulmonary artery occlusion pressure 18 mmHg Hemoglobin 12.6 Right atrial saturation 81% Pulmonary artery saturation 80% Aortic saturation 99% Cardiac output 7.9 via Javier Cardiac output 4.0 IMPRESSION Mild nonocclusive coronary artery disease Normal ejection fraction Mild pulmonary hypertension Mildly elevated left-sided filling pressures consistent with mild diastolic dysfunction PLAN 1. Medical management Electronically signed by : Meño Che MD 04/10/2023 15:07:26
[2023-04-10] MEDS: METHYLPREDNISOLONE SOD SUCC 40MG VIAL 40 MG IV ×3 (00:34→23:05)
[2023-04-10 00:50] LABS: Vancomycin,Peak 31.4 ug/ml (11-39)
[2023-04-10] MEDS: IPRATROPIUM/ALBUTEROL 3 ML NEB IH ×5 (02:06→18:35)
[2023-04-10] MEDS: HEPARIN SODIUM 5,000 UNIT/ML VIAL 5000 UNIT SQ ×3 (02:42→20:17)
[2023-04-10] MEDS: CEFEPIME HCL 2 GM in 0.9 % SODIUM CHLORIDE 100 ML IV ×3 (02:42→20:15)
--- NOTE | 2023-04-10 02:43 | PC.NURSE ---
Patient has been stable this shift. Patient remains on 4LNC. No complaints of pain. Patient c/o SOA once this shift. Has been using urinal with adequate urinary output. No complications at hand off. Vitals remain stable. Report given to MARIAM Batista
--- NOTE | 2023-04-10 07:54 | EXP.PHA.PN ---
Subjective *Date: 04/10/23 *Time: 07:54 Medical Exam Vital signs and Labs for Last 24 Hours: Vital Signs Temp Pulse Pulse Resp BP Pulse Ox O2 Del Method 04/10/23 07:00 Nasal Cannula 04/10/23 06:10 73 04/10/23 06:10 77 04/10/23 06:10 95 Nasal Cannula 04/10/23 05:00 Nasal Cannula 04/10/23 03:00 Nasal Cannula 04/10/23 04:00 98.1 F 72 20 118/66 04/10/23 03:50 98.0 F 78 22 120/62 04/10/23 02:46 68 111/70 99 Nasal Cannula 04/10/23 02:07 90 04/10/23 02:07 85 04/10/23 00:00 70 04/10/23 00:00 64 20 111/70 100 Nasal Cannula 04/10/23 00:00 64 04/09/23 22:31 90 04/09/23 22:31 87 04/09/23 20:00 72 04/09/23 20:00 98.2 F 79 19 132/83 97 Nasal Cannula 04/09/23 20:00 81 22 132/83 96 Nasal Cannula 04/09/23 18:56 Nasal Cannula 04/09/23 18:56 89 04/09/23 18:55 89 04/09/23 18:50 Nasal Cannula 04/09/23 17:00 Room Air 04/09/23 16:00 70 04/09/23 15:50 98.2 F 75 19 105/62 L 98 Nasal Cannula 04/09/23 12:00 70 04/09/23 15:00 Nasal Cannula 04/09/23 13:00 Nasal Cannula 04/09/23 11:00 Nasal Cannula 04/09/23 14:00 84 04/09/23 14:00 86 04/09/23 14:00 96 Nasal Cannula 04/09/23 11:41 98.0 F 61 20 125/75 97 Nasal Cannula 04/09/23 09:00 Nasal Cannula 04/09/23 08:00 Nasal Cannula 04/09/23 08:00 90 O2 Flow Rate 04/10/23 07:00 4 04/10/23 06:10 04/10/23 06:10 04/10/23 06:10 4 04/10/23 05:00 4 04/10/23 03:00 4 04/10/23 04:00 04/10/23 03:50 04/10/23 02:46 4 04/10/23 02:07 04/10/23 02:07 04/10/23 00:00 04/10/23 00:00 4 04/10/23 00:00 04/09/23 22:31 04/09/23 22:31 04/09/23 20:00 04/09/23 20:00 04/09/23 20:00 4 04/09/23 18:56 4 04/09/23 18:56 04/09/23 18:55 04/09/23 18:50 4 04/09/23 17:00 04/09/23 16:00 04/09/23 15:50 4 04/09/23 12:00 04/09/23 15:00 4 04/09/23 13:00 4 04/09/23 11:00 4 04/09/23 14:00 04/09/23 14:00 04/09/23 14:00 4 04/09/23 11:41 5 04/09/23 09:00 4 04/09/23 08:00 04/09/23 08:00 Intake and Output 04/09/23 04/09/23 04/10/23 15:59 23:59 07:59 Intake Total 240 / 1890 240 / 1890 830 / 830 Output Total 600 / 1750 450 / 1750 650 / 650 Balance -360 / 140 -210 / 140 180 / 180 Intake: Intake, Oral Amount 240 / 1290 240 / 1290 480 / 480 Intake, Total IV Amount 350 / 350 Cefepime HCl 2 gm In 0.9 % 100 / 100 Sodium Chloride 100 ml @ 200 mls/hr IV Q8H [facility] Rx#:[id number] Vancomycin/Water For Inj (Peg) 250 / 250 1.25 gm In 250 ml @ 125 mls/hr IV Q24H [facility] Rx#:[id number] Output: Output, Urine Amount 600 / 1750 450 / 1750 650 / 650 Other: Number of Unmeasured Voids 0 0 Weight 80.3 kg Patient Weight 04/10/23 23:59 Weight 80.3 kg Laboratory Results - last 24 hr 04/09/23 06:18: WBC 5.2, RBC 3.80 L, Hgb 12.6 L, Hct 38.9 L, MCV 102.5 H, MCH 33.2 H, MCHC 32.4, RDW 13.7, Plt Count 187, MPV 8.3, Neut % (Auto) 84.6 H, Lymph % (Auto) 9.0 L, [place] % (Auto) 6.1, Eos % (Auto) 0.2, Baso % (Auto) 0.0 L, Neut # (Auto) 4.4, Lymph # (Auto) 0.[address] L, [place] # (Auto) 0.3, Eos # (Auto) 0.0, Baso # (Auto) 0.0 04/09/23 19:30: Vancomycin Trough 11.5 H 04/10/23 00:17: Vancomycin Peak 31.4 I & O for Labs for Last 24 Hours: Intake & Output 04/07/23 04/08/23 04/09/23 04/10/23 23:59 23:59 23:59 23:59 Intake Total 2164 / 2981 1537 / 1887 1300 / 1890 830 / 830 Output Total 1575 / 1575 1650 / 1650 1750 / 1750 650 / 650 Balance 589 / 1406 -113 / 237 -450 / 140 180 / 180 Weight 81.2 kg 80.3 kg 79.9 kg 80.3 kg The patient's infection will respond to the chosen ABx?: Yes (empiric therapy) Is the patient receiving the right drug, dose, and route?: Yes Could a more targeted ABx be ordered?: No (cultures pending)
[2023-04-10] MEDS: hydroCHLOROthiazide 12.5MG CAPSULE 12.5 MG PO (09:23)
[2023-04-10] MEDS: BISOPROLOL 5MG TABLET 5 MG PO ×2 (09:23→20:17)
[2023-04-10] MEDS: FOLIC ACID 1MG TABLET 1 MG PO (09:23)
[2023-04-10] MEDS: PANTOPRAZOLE 40MG TABLET 40 MG PO (09:23)
[2023-04-10] MEDS: LISINOPRIL 20MG TABLET 20 MG PO (09:23)
[2023-04-10] MEDS: CITALOPRAM 40MG TABLET 40 MG PO (09:24)
[2023-04-10] MEDS: AMLODIPINE 10MG TABLET 10 MG PO (09:24)
[2023-04-10] MEDS: FUROSEMIDE 20MG TABLET 20 MG PO (09:24)
[2023-04-10] MEDS: NICOTINE 21MG/24HR PATCH 21 MG TD (09:24)
[2023-04-10] MEDS: THIAMINE 100MG TABLET 100 MG PO (09:24)
--- NOTE | 2023-04-10 09:38 | EXP.PHA.CONS ---
Pharmacy Consult Date: 04/10/23 Time: 09:38 Referring provider: DR. PAULINO Reason for Consult:: VANCOMYCIN LEVELS Allergies Allergy/AdvReac Type Severity Reaction Status Date / Time erythromycin base Allergy Unknown NA-NAUSEA/V Verified 11/19/18 11:23 [ERYTHROMYCIN BASE] OMITING Home Medications Medication Instructions Recorded Confirmed Type albuterol sulfate 90 mcg/actuation 1 - 2 puffs IH Q4HP PRN Shortness 03/24/20 04/06/23 History aerosol inhaler Of Breath Or Wheezing amlodipine 10 mg tablet 10 mg PO DAILY 03/24/20 04/06/23 History escitalopram oxalate 20 mg tablet 20 mg PO DAILY 03/24/20 04/06/23 History bisoprolol fumarate 5 mg tablet 5 mg PO DAILY 08/12/22 04/06/23 History pantoprazole 40 mg tablet,delayed 40 mg PO DAILY 08/12/22 04/06/23 History release rosuvastatin 10 mg tablet 10 mg PO HS 08/12/22 04/06/23 History fluticasone fur. 100 mcg-umeclid 1 inh inhalation DAILY 04/06/23 04/06/23 History 62.5 mcg-vilant 25 mcg inhalat.powder (Trelegy Ellipta) furosemide 20 mg tablet 20 mg PO MOWEFR 04/06/23 04/07/23 History ipratropium 20 mcg-albuterol 100 1 puff inhalation QID 04/06/23 04/06/23 History mcg/actuation mist for inhalation (Combivent Respimat) lisinopril 20 1 tab PO DAILY 04/07/23 04/07/23 History mg-hydrochlorothiazide 12.5 mg tablet New Prescriptions to Start Prescriptions: Height: 1.78 m Weight: 80.3 kg Laboratory Results:: Laboratory Results - last 24 hr 04/09/23 19:30: Vancomycin Trough 11.5 H 04/10/23 00:17: Vancomycin Peak 31.4 Medical History: Medical History (Updated 04/07/23 @ 13:18 by SUMMER Last) Alcohol use disorder, severe, in early remission CAP (community acquired pneumonia) COPD (chronic obstructive pulmonary disease) Hyperlipidemia Hypertension Obesity (BMI 30-39.9) Tobacco dependence Assessment and Plan Assessment and plan all Dx Assessment and Plan for all problems:: PATIENT'S VANCOMYCIN PEAK AND TROUGH LEVELS WERE 31.4 MCG/ML AND 11.5 MCG/ML, RESPECTIVELY. RECOMMEND CONTINUING WITH VANCOMYCIN 1250 MG Q24H AT THIS TIME.
--- NOTE | 2023-04-10 10:02 | HMH.OTEV ---
OT Inpatient Evaluation Rehab OT IP Evaluation Start: 04/08/23 09:44 Freq: ONCE Status: Active Protocol: Document 04/10/23 09:56 JULIENTALHA (Rec: 04/10/23 10:01 JOHANA [id number]) Rehab OT IP Assessment Subjective History Patient is a 67-year-old male with past medical history of COPD on 4 L nasal cannula at baseline who presented to hospital due to shortness of breath. Patient mentions he has been having worsening respiratory distress for the past few days, which is not improving, so he decided to come to the hospital. He also has past medical history of heart failure with preserved ejection fraction alcohol use, tobacco dependence. He smoke 4-5 cigs/day, and 8 beers/day. Patient lives in 1 story home with partner. Independent with ADLs and fx'l mobility. Subjective Analysis Patient's ADLs, bed mobility, transfers and fx'l mobility within room. Patient was 02 during session and wore 02 at home. Patient will get SOB easily during mobility and require RB. However Patient does not appear to be a fall risk. Patient presents to be at baseline. Objective Patient Orientation Person,Place,Name,Age,Birthday ,Year Right Upper Extremity Gross ROM WFL Left Upper Extremity Gross ROM WFL Bed Mobility bed mobility - supine/sit Assist Level Independent Transfer Training Sit/Stand/Pivot Transfer Assist Level Independent Chair Transfer Ability Independent Chair Transfer Technique Sit to/from Ambulatory Chair Transfer Assistive Devices None Lower Body Dressing Ability Independent Rehab OT IP prob,goals,plan Problems Date of Evaluation: 04/10/23 Rehab Potential Rehab Potential Innapropriate for Skilled Therapy Equipment Needs Assistive Devices None / NA Discharge Plan OT Discharge Plan Patient to return home with family after medical d/c. Aaron appears to be at baseline with ADLs and fx'l mobility. Eval Complexity Eval Charge Codes 38061 - Low Complexity PHYSICIAN CERTIFICATION: I certify the specified therapy services for Glynn Flores are required, authorized, and reviewed every 30 days.
--- NOTE | 2023-04-10 11:44 | P.PN_ITS ---
Subjective *Date: 04/10/23 *Time: 11:44 Interval history: No acute respiratory events overnight. Patient denies any new respiratory complaints. Admits improving respiratory symptoms. Pulmonology Exam Inpatient Vital signs and Labs for Last 24 Hours: Temp Pulse Resp BP Pulse Ox O2 Del Method O2 Flow Rate 97.8 F 72 18 110/56 L 97 Nasal Cannula 4 04/10/23 08:00 04/10/23 09:50 04/10/23 08:00 04/10/23 08:00 04/10/23 09:50 04/10/23 09:50 04/10/23 09:50 FiO2 30 04/08/23 22:34 Laboratory Results - last 24 hr 04/09/23 19:30: Vancomycin Trough 11.5 H 04/10/23 00:17: Vancomycin Peak 31.4 I & O for Labs for Last 24 Hours: Intake & Output 04/07/23 04/08/23 04/09/23 04/10/23 23:59 23:59 23:59 23:59 Intake Total 2164 / 2981 1537 / 1887 1300 / 1890 830 / 830 Output Total 1575 / 1575 1650 / 1650 1750 / 1750 875 / 875 Balance 589 / 1406 -113 / 237 -450 / 140 -45 / -45 Weight 179 lb 0.246 oz 177 lb 0.499 oz 176 lb 2.389 oz 177 lb 0.499 oz Constitutional: Present moderate distress Head: Present normocephalic and atraumatic ENT: Present normal exam, normal oropharynx and mucous membranes moist Neck: Present normal inspection and full ROM Respiratory: Present decreased breath sounds, respiratory distress, wheezes and able to speak in complete sentences Cardiac: Present S1/S2, Tachycardia and radial pulses present GI: Present soft and distention; Absent tenderness or guarding Skin: Present intact; Absent cyanosis or jaundice Neuro: Present alert, awake and oriented x 3 Extremities: Present normal inspection; Absent clubbing or cyanosis Psychiatric: Present normal affect and cooperative Assessment and Plan *Assessment and plan (1) Acute exacerbation of chronic obstructive pulmonary disease: Status: Acute Category: Medical Code(s): J44.1 - Chronic obstructive pulmonary disease with (acute) exacerbation (2) Acute on chronic respiratory failure with hypoxia and hypercapnia: Status: Acute Category: Medical Code(s): J96.21 - Acute and chronic respiratory failure with hypoxia; J96.22 - Acute and chronic respiratory failure with hypercapnia (3) Pneumonia: Status: Acute Category: Medical Code(s): J18.9 - Pneumonia, unspecified organism Plan Ms. Flores is a 66-year-old male current smoker greater than 30 with medical diagnoses given Trelegy inhaler, chronic hypoxic respiratory failure, oxygen at baseline last seen in the hospital August 2022 for COPD exacerbation community- acquired pneumonia presented again to the hospital with worsening respiratory distress. Afebrile. No evidence of leukocytosis upon admission. ABG upon admission Did not show evidence of severe hypoxic respiratory failure. Mild hypercarbic respiratory failure. CTA upon this admission reviewed, no evidence of pulmonary embolism. Right lower lobe pleural-based airspace disease. The patient did have a smaller nodule on her prior CT from at the same location. Patient was initiated on cefepime and vancomycin along with DuoNebs every 6 scheduled. Interval update: No acute respiratory and throughout the weekend. Stable off BiPAP, continue to receive nasal cannula oxygen supplementation. Auscultation significant improvement in wheezing. Plan: DuoNebs every 6 hours scheduled along with Pulmicort every 12 scheduled Recommend to wean antibiotics to levofloxacin to complete a total of 7-day course Recommend to wean methylprednisolone to Prednisone 40 mg oral daily x 5 days starting today Continue oxygen supplementation to maintain O2 saturation below 90% and above # Patient also noted to have right lower lobe pleural-based mass/airspace disease which appeared to be concerning at this point of time. Patient will need follow-up CT chest as an outpatient basis in 4 to 6 weeks after discharge to further determine the need for PET scan/CT-guided biopsy for the noted abnormality to rule out possible malignant etiology # Thank for involving pulmonary in this patient care. Will continue to monitor.
--- NOTE | 2023-04-10 11:54 | SW/DCPLANNER ---
Addendum entered by Shae Ewing 04/12/23 12:20: I have updated [facility] that patient will discharge home today. Addendum entered by Shae Ewing 04/11/23 14:35: Siri w/ [facility] stated that services will begin 04/13/23 for this patient. Addendum entered by Shae [place] 04/11/23 14:17: Patient is NOT interested in placement at this time and prefers to return home w/ significant other and home health services. Addendum entered by Shae Ewing 04/11/23 13:31: Patient information/order has been faxed to [facility]. Patient will discharge home today. Original Note: I spoke w/ this patient regarding plans once medically stable for discharge. PT/OT evaluated patient and recommended home health services at time of discharge. Patient is agreeable to home health services and would prefer to use [facility]. Discharge date is unknown at this time. Home health services will be set up at time of discharge.
--- NOTE | 2023-04-10 13:37 | P.PN_ITS ---
Subjective Subjective Date: 04/10/23 Time: 08:30 Principal diagnosis: SOB, CAD Interval history: This is a 67-year-old white gentleman Who was admitted to the hospital with shortness of breath and tachycardia. The patient was found to have sinus tachycardia versus SVT. He is currently being treated with bisoprolol and his heart rate is under good control today. He has also been having worsening shortness of breath. The patient states that he feels short of breath all the time and it is worse with exertion. It does improve with rest but is not always completely resolved. He denies any chest pain or pressure. He denies any lower extremity edema. He denies any fever, chills, nausea, vomiting, diarrhea, PND or orthopnea. Patient does have a CT of the chest which shows significant three-vessel coronary calcifications involving the left main. The patient states that he does not feel any better today than he did when he was first admitted to the hospital. Exam Data for Last 24 hours Vital signs and Labs for Last 24 Hours: Temp Pulse Resp BP Pulse Ox O2 Del Method O2 Flow Rate 97.7 F 66 18 120/73 99 Nasal Cannula 4 04/10/23 12:00 04/10/23 12:00 04/10/23 12:00 04/10/23 12:00 04/10/23 12:00 04/10/23 12:00 04/10/23 12:00 FiO2 30 04/08/23 22:34 Laboratory Results - last 24 hr 04/09/23 19:30: Vancomycin Trough 11.5 H 04/10/23 00:17: Vancomycin Peak 31.4 I & O for Last 24 hours: Intake & Output 04/07/23 04/08/23 04/09/23 04/10/23 23:59 23:59 23:59 23:59 Intake Total 2164 / 2981 1537 / 1887 1300 / 1890 830 / 830 Output Total 1575 / 1575 1650 / 1650 1750 / 1750 1175 / 1175 Balance 589 / 1406 -113 / 237 -450 / 140 -345 / -345 Weight 179 lb 0.246 oz 177 lb 0.499 oz 176 lb 2.389 oz 177 lb 0.499 oz Constitutional Constitutional: no acute distress and average body habitus *Routine HEENT Exam Head: Present normocephalic and atraumatic ENT: Present mucous membranes moist *Routine Neck Exam Neck: Present supple, full ROM and normal carotid upstroke; Absent JVD, carotid bruit or lymphadenopathy *Routine Respiratory Exam Respiratory: Present CTA bilaterally, normal respiratory effort, able to speak in complete sentences and symmetric chest movement *Routine Cardiovascular Exam Cardiovascular: Present RRR, Normal S1 and Normal S2; Absent murmur or gallop *Routine Abdominal Exam Abdominal: Present soft and normoactive bowel sounds; Absent tenderness, diste nded or organomegaly *Routine Extremities Exam Extremities: Present full ROM, pulses intact and normal capillary refill; Absent cyanosis, clubbing or edema *Routine Skin Exam Skin: Present intact and warm; Absent erythema *Routine Neurological Exam Neurological: Present alert, oriented X3 and CN II-XII intact; Absent sensory deficit or motor deficit Routine Psychiatric Exam Psychiatric: Present normal affect Progress Note: A&P Assessment and plan (1) Atypical angina: Status: Acute (2) Shortness of Breath: Status: Acute (3) Coronary artery calcification seen on CAT scan: Status: Acute (4) Acute exacerbation of chronic obstructive pulmonary disease: Status: Acute (5) Acute on chronic respiratory failure with hypoxia and hypercapnia: Status: Acute (6) Pneumonia: Status: Acute (7) Tachycardia, paroxysmal: Status: Acute (8) Hypertension: Status: Acute (9) Hyperlipidemia: Status: Acute Assessment and Plan Assessment and Plan for All Diagnoses:: Plan: 1. This is a 67-year-old white gentleman who was admitted to the hospital with tachycardia and shortness of breath. The patient was started on bisoprolol for SVT versus sinus tachycardia. His rate is controlled. 2. The patient is also currently being treated for COPD exacerbation. Will defer to the hospitalist. 3. The patient states that his shortness of breath has not improved whatsoever since being in the hospital. He did have a CT scan which showed significant three-vessel coronary calcifications involving the left main. The shortness of breath is likely atypical angina and we do recommend proceeding with left cardiac catheterization to evaluate his coronary artery disease. Will also complete a right cardiac catheterization at the time of left cardiac catheterization to evaluate his intracardial pressures to evaluate for pulmonary hypertension. 4. The patient has been educated the risk and benefits of proceeding with left and right cardiac catheterization with right IJ and radial access. The patient verbalized understanding and is agreeable in proceeding with the procedures. 5. The patient is n.p.o. in preparation for left and right cardiac catheterization. 6. Blood pressure is well-controlled. 7. His LDL goal is less than 55. Will get a lipid panel in the morning. His statin is currently being held due to elevated liver enzymes. Will also repeat his liver enzymes in the morning. 8. Further recommendations will be made pending the patient's response to treatment and the results of his left and right cardiac catheterization today. Thank you for the opportunity to help participate in the care of this patient. All recommendations and orders are per Dr. Smith.
[2023-04-10] MEDS: HEPARIN 1,000 UNITS/500ML NS (CATH LAB) 3000 UNIT IV (14:22)
[2023-04-10] MEDS: LIDOCAINE 1% 10ML MDV 20 ML IJ (14:22)
[2023-04-10] MEDS: 0.9 % SODIUM CHLORIDE 500 ML 25 ML IV (14:22)
[2023-04-10] MEDS: diphenhydrAMINE 50MG/ML VIAL 50 MG IV (14:23)
[2023-04-10] MEDS: HEPARIN 1,000 UNITS/ML 10ML VIAL (CATH LAB) 10000 UNIT IV (14:23)
[2023-04-10] MEDS: NITROGLYCERIN 800MCG/8ML SYR (CATH LAB) 800 MCG IA (14:23)
[2023-04-10] MEDS: VERAPAMIL 2.5MG/ML 2ML VIAL 2.5 MG IV (14:23)
[2023-04-10] MEDS: MIDAZOLAM HCL 1MG/1ML 5ML VIAL 1 MG IV (14:50)
[2023-04-10] MEDS: FENTANYL 100MCG/2ML VIAL 50 MCG IV (14:51)
[2023-04-10] MEDS: IOPAMIDOL-370 (76%);100ML BOTTLE 80 ML IV (15:06)
[2023-04-10 15:09] LABS: CATHL Arterial O2 SAT 80.7 % (90-100); CATHL Venous O2 SAT 81 % (75-80)
--- NOTE | 2023-04-10 17:12 | EXP.PN ---
Subjective *Date: 04/10/23 *Time: 17:12 Interval history: No acute respiratory events overnight. he mentions his SOB is getting better, no new CP, N/V. Exam Data for Last 24 hours Vital signs and Labs for Last 24 Hours: Temp Pulse Resp BP Pulse Ox O2 Del Method O2 Flow Rate 97.7 F 70 18 133/79 99 Nasal Cannula 4 04/10/23 12:00 04/10/23 16:00 04/10/23 15:30 04/10/23 15:30 04/10/23 15:30 04/10/23 15:30 04/10/23 15:30 FiO2 30 04/08/23 22:34 Laboratory Results - last 24 hr 04/09/23 19:30: Vancomycin Trough 11.5 H 04/10/23 00:17: Vancomycin Peak 31.4 04/10/23 14:53: ABG O2 Sat (Measured) 80.7 L, POC VBG O2 Sat (Gisela) 81 H I & O for Last 24 hours: Intake & Output 04/07/23 04/08/23 04/09/23 04/10/23 23:59 23:59 23:59 23:59 Intake Total 2164 / 2981 1537 / 1887 1300 / 1890 830 / 830 Output Total 1575 / 1575 1650 / 1650 1750 / 1750 1175 / 1175 Balance 589 / 1406 -113 / 237 -450 / 140 -345 / -345 Weight 81.2 kg 80.3 kg 79.9 kg 80.3 kg Constitutional Constitutional: no acute distress *Routine HEENT Exam Head: Present normocephalic Eye: Present EOMI and PERRL ENT: Present mucous membranes moist *Routine Neck Exam Neck: Present supple; Absent lymphadenopathy *Routine Respiratory Exam Respiratory: Present distant breath sounds and diminished air movement *Routine Cardiovascular Exam Cardiovascular: Present RRR *Routine Abdominal Exam Abdominal: Present soft and normoactive bowel sounds; Absent tenderness *Routine Extremities Exam Extremities: Absent cyanosis, clubbing or edema *Routine Skin Exam Skin: Present warm; Absent rash *Routine Neurological Exam Neurological: Present alert and oriented X3 Assessment and Plan *Assessment and plan (1) Acute exacerbation of chronic obstructive pulmonary disease: Status: Acute Category: Medical Code(s): J44.1 - Chronic obstructive pulmonary disease with (acute) exacerbation (2) Acute on chronic respiratory failure with hypoxia and hypercapnia: Status: Acute Category: Medical Code(s): J96.21 - Acute and chronic respiratory failure with hypoxia; J96.22 - Acute and chronic respiratory failure with hypercapnia (3) Pneumonia: Status: Acute Category: Medical Code(s): J18.9 - Pneumonia, unspecified organism (4) Acute hyponatremia: Status: Acute Category: Medical Code(s): E87.1 - Hypo-osmolality and hyponatremia (5) CAP (community acquired pneumonia): Status: Acute Qualifiers: Laterality: right Lung location: lower lobe of lung Qualified Code(s): J18.9 - Pneumonia, unspecified organism Category: Medical Code(s): J18.9 - Pneumonia, unspecified organism (6) Alcohol use disorder, severe, in early remission: Status: Acute Category: Medical Code(s): F10.21 - Alcohol dependence, in remission (7) Tobacco dependence: Status: Acute Category: Medical Code(s): F17.200 - Nicotine dependence, unspecified, uncomplicated Plan Patient is a 67-year-old male with past medical history of COPD on 4 L nasal cannula at baseline who presented to hospital due to shortness of breath. Patient mentions he has been having worsening respiratory distress for the past few days, which is not improving, so he decided to come to the hospital. He also has past medical history of heart failure with preserved ejection fraction alcohol use, tobacco dependence. Assessment COPD exacerbation Acute hypoxic hypercapnic respiratory failure satting less than 90% on room air Right lower lung masslike opacity suggestive of pneumonia, cannot rule out tumor Acute kidney injury Tobacco abuse Alcohol use disorder Chronic heart failure with preserved ejection fraction Sinus trachycardia Plan DuoNeb every 4 hours scheduled - continue current treatment IV Solu-Medrol every 6 hours continue IV vancomycin, cefepime Consult pulmonary - recs noted Plan for R cardiac cath per cardiology Gentle IV fluid therapy with normal saline Hold nephrotoxic medications consulted Nicotine patch Monitor and replace electrolytes DVT prophylaxis-heparin continue current regimen, wean o2 as tolerated, plan for R heart cath today per cardiology
[2023-04-10] MEDS: BUDESONIDE 0.5MG/2ML NEB 0.5 MG IH (18:35)
[2023-04-10] MEDS: VANCOMYCIN/WATER FOR INJ (PEG) 1.25 GM/250 ML PIGGYBACK IV (20:51)
[2023-04-11] VITALS (9 sets, daily range): BP systolic 98–122; BP diastolic 54–71; PULSE 54–82; RESP 18–22; TEMP 36.4–37.1; O2SAT 94–99; BMI 25.3
[2023-04-11] MEDS: IPRATROPIUM/ALBUTEROL 3 ML NEB IH ×3 (00:19→15:06)
[2023-04-11] MEDS: HEPARIN SODIUM 5,000 UNIT/ML VIAL 5000 UNIT SQ ×3 (02:17→17:54)
[2023-04-11] MEDS: CEFEPIME HCL 2 GM in 0.9 % SODIUM CHLORIDE 100 ML IV ×2 (02:26→10:06)
[2023-04-11] MEDS: BUDESONIDE 0.5MG/2ML NEB 0.5 MG IH (05:10)
[2023-04-11 06:23] LABS: Basophils % 0.2 % (0.1-2.0); Hematocrit 40.9 % (42.0-52.0); Hemoglobin 13.5 g/dL (14.1-18.0); Lymphocytes # 0.4 K/mm3 (0.7-4.5); Lymphocytes % 7.4 % (10-50); Mean Corpuscular HGB Conc 33.1 g/dL (31.8-35.4); Mean Corpuscular Hemoglobin 33.1 pg (27.0-31.2); Mean Corpuscular Volume 100.1 fl (80-94); Mean Platelet Volume 7.7 fl (7.4-10.4); Monocytes # 0.5 K/mm3 (0.1-1.0); Monocytes % 9.6 % (1.7-9.3); Neutrophils # 4.7 K/mm3 (1.8-7.8); Neutrophils % 82.8 % (37.0-80.0); Platelet Count 238 K/mm3 (142-424); Red Blood Count 4.09 M/mm3 (4.60-6.20); Red Cell Distribution Width 13.6 % (11.5-17.5); White Blood Count 5.7 K/mm3 (4.8-10.8)
--- NOTE | 2023-04-11 06:35 | PC.NURSE ---
Pt A&Ox4. CIWA scores 0 throughout shift. Pt has had no complaints. IJ and Right Radial cath site dressings CDI, soft to touch. Pt used urinal independently.
[2023-04-11 06:37] LABS: Alanine Aminotransferase 60 U/L (12-78); Albumin Level 3.8 g/dl (3.5-5.0); Albumin/Globulin Ratio 1.4 (1.1-1.8); Alkaline Phosphatase 63 U/L (38-126); Anion Gap 5.8 mEq/L (5-15); Aspartate Amino Transferase 44 U/L (17-59); Bilirubin,Total 0.3 mg/dl (0.2-1.3); Blood Urea Nitrogen 28 mg/dl (9-20); Calcium 8.7 mg/dl (8.4-10.2); Carbon Dioxide 33 mmol/L (22.0-30.0); Chloride 99 mmol/L (98-107); Creatinine Clearance Estimated 81 mL/min (50-200); Estimated Glomerular Filt Rate 84 ml/min (>60); GFR (African American) 102 ML/MIN (>60); Globulin 2.8 g/dL (1.3-3.2); Glucose 128 mg/dl (74-100); Potassium 4.8 mmoL/L (3.5-5.1); Sodium 133 mmol/L (136-145); Total Protein,Serum 6.6 g/dl (6.3-8.2)
[2023-04-11] MEDS: FOLIC ACID 1MG TABLET 1 MG PO (08:37)
[2023-04-11] MEDS: CITALOPRAM 40MG TABLET 40 MG PO (08:37)
[2023-04-11] MEDS: hydroCHLOROthiazide 12.5MG CAPSULE 12.5 MG PO (08:37)
[2023-04-11] MEDS: BISOPROLOL 5MG TABLET 5 MG PO ×2 (08:37→20:51)
[2023-04-11] MEDS: THIAMINE 100MG TABLET 100 MG PO (08:37)
[2023-04-11] MEDS: PANTOPRAZOLE 40MG TABLET 40 MG PO (08:37)
[2023-04-11] MEDS: LISINOPRIL 20MG TABLET 20 MG PO (08:37)
[2023-04-11] MEDS: SENNOSIDES 8.6MG/DOCUSATE 50MG TABLET 1 TAB PO (08:37)
[2023-04-11] MEDS: AMLODIPINE 10MG TABLET 10 MG PO (08:37)
[2023-04-11 09:12] LABS: Chol/HDL Ratio 2.9 (1-3.5); Cholesterol 169 mg/dl (140-200); HDL Cholesterol 58 mg/dl (40-60); Triglycerides 141 mg/dl (30-150); VLDL Cholesterol 28 mg/dL (0-40)
[2023-04-11 09:23] LABS: Direct LDL Cholesterol 75.81 mg/dL (100-129)
--- NOTE | 2023-04-11 09:42 | EXP.PHA.PN ---
Subjective *Date: 04/11/23 *Time: 09:42 Medical Exam Vital signs and Labs for Last 24 Hours: Vital Signs Temp Pulse Pulse Resp BP BP Pulse Ox 04/11/23 08:00 70 04/11/23 08:00 97 04/11/23 08:44 04/11/23 08:00 98.2 F 76 18 119/64 96 04/11/23 06:48 04/11/23 05:00 04/11/23 04:00 54 L 04/11/23 04:00 97.6 F 68 18 102/61 L 98 04/11/23 05:10 76 04/11/23 05:10 82 04/11/23 05:10 97 04/11/23 03:00 04/11/23 00:00 60 04/11/23 01:00 04/10/23 22:30 67 17 105/65 L 97 04/10/23 21:30 97.9 F 66 18 105/61 L 97 04/10/23 20:30 71 17 123/74 97 04/10/23 23:00 04/10/23 21:00 04/10/23 19:30 70 17 107/66 L 98 04/10/23 20:00 04/11/23 00:19 66 04/11/23 00:19 68 04/10/23 16:30 98.7 F 71 21 127/76 97 04/10/23 16:15 69 20 119/75 99 04/10/23 16:00 71 21 117/76 97 04/10/23 15:45 98.8 F 71 20 114/71 95 04/10/23 18:57 78 04/10/23 18:57 76 04/10/23 18:57 93 L 04/10/23 18:30 86 20 135/72 99 04/10/23 18:40 04/10/23 18:00 68 16 116/71 98 04/10/23 17:30 68 18 113/69 100 04/10/23 17:00 69 20 115/66 100 04/10/23 17:00 04/10/23 16:00 70 04/10/23 15:25 75 18 130/72 100 04/10/23 15:30 79 18 133/79 99 04/10/23 15:20 76 18 133/70 100 04/10/23 15:15 76 76 18 125/76 99 04/10/23 13:50 75 04/10/23 13:50 75 04/10/23 13:00 04/10/23 12:00 97.7 F 66 18 120/73 99 04/10/23 11:05 04/10/23 09:50 72 04/10/23 09:50 73 04/10/23 09:50 97 O2 Del Method O2 Flow Rate 04/11/23 08:00 04/11/23 08:00 3 04/11/23 08:44 Nasal Cannula 3 04/11/23 08:00 Nasal Cannula 04/11/23 06:48 Nasal Cannula 3 04/11/23 05:00 Nasal Cannula 3 04/11/23 04:00 04/11/23 04:00 2 04/11/23 05:10 04/11/23 05:10 04/11/23 05:10 Nasal Cannula 4 04/11/23 03:00 Nasal Cannula 3 04/11/23 00:00 04/11/23 01:00 Nasal Cannula 3 04/10/23 22:30 Nasal Cannula 3 04/10/23 21:30 Nasal Cannula 3 04/10/23 20:30 Nasal Cannula 3 04/10/23 23:00 Nasal Cannula 3 04/10/23 21:00 Nasal Cannula 3 04/10/23 19:30 Nasal Cannula 3 04/10/23 20:00 Nasal Cannula 3 04/11/23 00:19 04/11/23 00:19 04/10/23 16:30 Nasal Cannula 3 04/10/23 16:15 Nasal Cannula 3 04/10/23 16:00 Nasal Cannula 3 04/10/23 15:45 Nasal Cannula 3 04/10/23 18:57 04/10/23 18:57 04/10/23 18:57 Nasal Cannula 3 04/10/23 18:30 Nasal Cannula 3 04/10/23 18:40 Room Air 04/10/23 18:00 Nasal Cannula 4 04/10/23 17:30 Nasal Cannula 4 04/10/23 17:00 Nasal Cannula 04/10/23 17:00 Nasal Cannula 3 04/10/23 16:00 04/10/23 15:25 Nasal Cannula 4 04/10/23 15:30 Nasal Cannula 4 04/10/23 15:20 Nasal Cannula 4 04/10/23 15:15 Room Air 04/10/23 13:50 04/10/23 13:50 04/10/23 13:00 Nasal Cannula 4 04/10/23 12:00 Nasal Cannula 4 04/10/23 11:05 Nasal Cannula 4 04/10/23 09:50 04/10/23 09:50 04/10/23 09:50 Nasal Cannula 4 Intake and Output 04/10/23 04/11/23 04/11/23 23:59 07:59 15:59 Intake Total 360 / 360 Output Total 300 / 1700 475 / 475 0 / 475 Balance -300 / -870 -475 / -115 360 / -115 Intake: Intake, Oral Amount 360 / 360 Output: Output, Urine Amount 300 / 1700 475 / 475 0 / 475 Other: Number of Voids 0 Weight 80.3 kg Patient Weight 04/11/23 23:59 Weight 80.3 kg Laboratory Results - last 24 hr 04/10/23 14:53: ABG O2 Sat (Measured) 80.7 L, POC VBG O2 Sat (Gisela) 81 H 04/11/23 05:39: WBC 5.7, RBC 4.09 L, Hgb 13.5 L, Hct 40.9 L, MCV 100.1 H, MCH 33.1 H, MCHC 33.1, RDW 13.6, Plt Count 238 D, MPV 7.7, Neut % (Auto) 82.8 H, Lymph % (Auto) 7.4 L, [place] % (Auto) 9.6 H, Eos % (Auto) 0.0 L, Baso % (Auto) 0.2, Neut # (Auto) 4.7, Lymph # (Auto) 0.4 L, [place] # (Auto) 0.5, Eos # (Auto) 0.0, Baso # (Auto) 0.0, Sodium 133 L, Potassium 4.8, Chloride 99, Carbon Dioxide 33 H, Anion Gap 5.8, BUN 28 H, Creatinine 0.90, Estimated Creat Clear 81, Estimated GFR 84, Est GFR ( Amer) 102, Glucose 128 H, Calcium 8.7, Total Bilirubin 0.3, AST 44, ALT 60, Alkaline Phosphatase 63, Total Protein 6.6, Albumin 3.8, Globulin 2.8, Albumin/Globulin Ratio 1.4, Triglycerides 141, Cholesterol 169, LDL Cholesterol Direct 75.81 L, VLDL Cholesterol 28, HDL Cholesterol 58, Cholesterol/HDL Ratio 2.9 I & O for Labs for Last 24 Hours: Intake & Output 04/08/23 04/09/23 04/10/23 04/11/23 23:59 23:59 23:59 23:59 Intake Total 1537 / 1887 1300 / 1890 830 / 830 360 / 360 Output Total 1650 / 1650 1750 / 1750 1475 / 1700 475 / 475 Balance -113 / 237 -450 / 140 -645 / -870 -115 / -115 Weight 80.3 kg 79.9 kg 80.3 kg 80.3 kg Microbiology Reports for the Last 24 Hours: Microbiology 04/08/23 21:00 Sputum - Expectorated Sputum Gram Stain - Final The patient's infection will respond to the chosen ABx?: Yes (EMPIRIC THERAPY) Is the patient receiving the right drug, dose, and route?: Yes Could a more targeted ABx be ordered?: No (CULTURES PENDING)
--- NOTE | 2023-04-11 09:50 | EXP.PULM.PN ---
Subjective *Date: 04/11/23 *Time: 10:50 Interval history: No acute respiratory events overnight. Patient denies any new respiratory complaints. Pulmonology Exam Inpatient Vital signs and Labs for Last 24 Hours: Temp Pulse Resp BP Pulse Ox O2 Del Method O2 Flow Rate 98.2 F 76 18 119/64 97 Nasal Cannula 3 04/11/23 08:00 04/11/23 08:00 04/11/23 08:00 04/11/23 08:00 04/11/23 08:00 04/11/23 08:44 04/11/23 08:44 FiO2 30 04/08/23 22:34 Laboratory Results - last 24 hr 04/10/23 14:53: ABG O2 Sat (Measured) 80.7 L, POC VBG O2 Sat (Gisela) 81 H 04/11/23 05:39: WBC 5.7, RBC 4.09 L, Hgb 13.5 L, Hct 40.9 L, MCV 100.1 H, MCH 33.1 H, MCHC 33.1, RDW 13.6, Plt Count 238 D, MPV 7.7, Neut % (Auto) 82.8 H, Lymph % (Auto) 7.4 L, [place] % (Auto) 9.6 H, Eos % (Auto) 0.0 L, Baso % (Auto) 0.2, Neut # (Auto) 4.7, Lymph # (Auto) 0.4 L, [place] # (Auto) 0.5, Eos # (Auto) 0.0, Baso # (Auto) 0.0, Sodium 133 L, Potassium 4.8, Chloride 99, Carbon Dioxide 33 H, Anion Gap 5.8, BUN 28 H, Creatinine 0.90, Estimated Creat Clear 81, Estimated GFR 84, Est GFR ( Amer) 102, Glucose 128 H, Calcium 8.7, Total Bilirubin 0.3, AST 44, ALT 60, Alkaline Phosphatase 63, Total Protein 6.6, Albumin 3.8, Globulin 2.8, Albumin/Globulin Ratio 1.4, Triglycerides 141, Cholesterol 169, LDL Cholesterol Direct 75.81 L, VLDL Cholesterol 28, HDL Cholesterol 58, Cholesterol/HDL Ratio 2.9 I & O for Labs for Last 24 Hours: Intake & Output 04/08/23 04/09/23 04/10/23 04/11/23 23:59 23:59 23:59 23:59 Intake Total 1537 / 1887 1300 / 1890 830 / 830 360 / 360 Output Total 1650 / 1650 1750 / 1750 1475 / 1700 475 / 475 Balance -113 / 237 -450 / 140 -645 / -870 -115 / -115 Weight 177 lb 0.499 oz 176 lb 2.389 oz 177 lb 0.499 oz 177 lb 0.499 oz Microbiology Reports for the Last 24 Hours: Microbiology 04/08/23 21:00 Sputum - Expectorated Sputum Gram Stain - Final Constitutional: Present mild distress Head: Present normocephalic and atraumatic ENT: Present normal exam, normal oropharynx and mucous membranes moist Neck: Present normal inspection and full ROM Respiratory: Present decreased breath sounds, respiratory distress, wheezes and able to speak in complete sentences Cardiac: Present S1/S2, Tachycardia and radial pulses present GI: Present soft and distention; Absent tenderness or guarding Skin: Present intact; Absent cyanosis or jaundice Neuro: Present alert, awake and oriented x 3 Extremities: Present normal inspection; Absent clubbing or cyanosis Psychiatric: Present normal affect and cooperative Assessment and Plan *Assessment and plan (1) Acute exacerbation of chronic obstructive pulmonary disease: Status: Acute Category: Medical Code(s): J44.1 - Chronic obstructive pulmonary disease with (acute) exacerbation (2) Acute on chronic respiratory failure with hypoxia and hypercapnia: Status: Acute Category: Medical Code(s): J96.21 - Acute and chronic respiratory failure with hypoxia; J96.22 - Acute and chronic respiratory failure with hypercapnia (3) Pneumonia: Status: Acute Category: Medical Code(s): J18.9 - Pneumonia, unspecified organism Plan Ms. Flores is a 66-year-old male current smoker greater than 30 with medical diagnoses given Trelegy inhaler, chronic hypoxic respiratory failure, oxygen at baseline last seen in the hospital August 2022 for COPD exacerbation community-acquired pneumonia presented again to the hospital with worsening respiratory distress. Afebrile. No evidence of leukocytosis upon admission. ABG upon admission Did not show evidence of severe hypoxic respiratory failure. Mild hypercarbic respiratory failure. CTA upon this admission reviewed, no evidence of pulmonary embolism. Right lower lobe pleural-based airspace disease. The patient did have a smaller nodule on her prior CT from at the same location. Patient was initiated on cefepime and vancomycin along with DuoNebs every 6 scheduled. Interval update: No acute respiratory and throughout the weekend. Stable off BiPAP, continue to receive nasal cannula oxygen supplementation. Auscultation significant improvement in wheezing. Plan: Recommend to wean antibiotics to levofloxacin to complete a total of 7-day course -Continue oxygen supplementation to maintain O2 saturation goal of 90% above, currently on 2 L Trelegy 100 inhaler daily scheduled Albuterol/DuoNebs every 6 hours and as needed with Prednisone 40 mg daily x 5 days starting today next prednisone 40 mg daily x 5 days from tomorrow. # Patient also noted to have right lower lobe pleural-based mass/airspace disease which appeared to be concerning at this point of time. Patient will need follow-up CT chest as an outpatient basis in 4 to 6 weeks after discharge to further determine the need for PET scan/CT-guided biopsy for the noted abnormality to rule out possible malignant etiology # Thank for involving pulmonary in this patient care. Will follow the patient in pulmonary clinic in 4 weeks postdischarge with a CT chest without contrast prior to clinic visit.
[2023-04-11] MEDS: METHYLPREDNISOLONE SOD SUCC 40MG VIAL 40 MG IV (10:06)
[2023-04-11] MEDS: ASPIRIN EC 81MG TABLET 81 MG PO (10:06)
[2023-04-11] MEDS: FUROSEMIDE 40 MG TABLET PO (11:53)
[2023-04-11] MEDS: levoFLOXacin 750 MG TABLET PO (11:53)
[2023-04-11] MEDS: predniSONE 20MG TAB 40 MG PO (11:53)
--- NOTE | 2023-04-11 13:45 | EXP.ACUTE.PN ---
Subjective *Date: 04/11/23 *Time: 22:24 Interval history: Continues to be dyspneic. Afebrile. No chest pain today. No nausea or vomiting. Feels quite short of breath with walking to the bathroom. Discussed placement or rehab for short-term improvement in therapy, patient is not interested at this time. Does not feel he can go home today however has he is still quite short of breath. Tolerating 4 L nasal cannula which is his baseline. Medical Exam Vital signs and Labs for Last 24 Hours: Vital Signs Temp Pulse Pulse Resp BP BP Pulse Ox 04/11/23 13:00 04/11/23 12:00 64 20 110/58 L 99 04/11/23 10:15 04/11/23 08:00 70 04/11/23 08:00 97 04/11/23 08:44 04/11/23 08:00 98.2 F 76 18 119/64 96 04/11/23 06:48 04/11/23 05:00 04/11/23 04:00 54 L 04/11/23 04:00 97.6 F 68 18 102/61 L 98 04/11/23 05:10 76 04/11/23 05:10 82 04/11/23 05:10 97 04/11/23 03:00 04/11/23 00:00 60 04/11/23 01:00 04/10/23 22:30 67 17 105/65 L 97 04/10/23 21:30 97.9 F 66 18 105/61 L 97 04/10/23 20:30 71 17 123/74 97 04/10/23 23:00 04/10/23 21:00 04/10/23 19:30 70 17 107/66 L 98 04/10/23 20:00 04/11/23 00:19 66 04/11/23 00:19 68 04/10/23 16:30 98.7 F 71 21 127/76 97 04/10/23 16:15 69 20 119/75 99 04/10/23 16:00 71 21 117/76 97 04/10/23 15:45 98.8 F 71 20 114/71 95 04/10/23 18:57 78 04/10/23 18:57 76 04/10/23 18:57 93 L 04/10/23 18:30 86 20 135/72 99 04/10/23 18:40 04/10/23 18:00 68 16 116/71 98 04/10/23 17:30 68 18 113/69 100 04/10/23 17:00 69 20 115/66 100 04/10/23 17:00 04/10/23 16:00 70 04/10/23 15:25 75 18 130/72 100 04/10/23 15:30 79 18 133/79 99 04/10/23 15:20 76 18 133/70 100 04/10/23 15:15 76 76 18 125/76 99 04/10/23 13:50 75 04/10/23 13:50 75 O2 Del Method O2 Flow Rate 04/11/23 13:00 Nasal Cannula 2 04/11/23 12:00 Nasal Cannula 4 04/11/23 10:15 Nasal Cannula 3 04/11/23 08:00 04/11/23 08:00 3 04/11/23 08:44 Nasal Cannula 3 04/11/23 08:00 Nasal Cannula 04/11/23 06:48 Nasal Cannula 3 04/11/23 05:00 Nasal Cannula 3 04/11/23 04:00 04/11/23 04:00 2 04/11/23 05:10 04/11/23 05:10 04/11/23 05:10 Nasal Cannula 4 04/11/23 03:00 Nasal Cannula 3 04/11/23 00:00 04/11/23 01:00 Nasal Cannula 3 04/10/23 22:30 Nasal Cannula 3 04/10/23 21:30 Nasal Cannula 3 04/10/23 20:30 Nasal Cannula 3 04/10/23 23:00 Nasal Cannula 3 04/10/23 21:00 Nasal Cannula 3 04/10/23 19:30 Nasal Cannula 3 04/10/23 20:00 Nasal Cannula 3 04/11/23 00:19 04/11/23 00:19 04/10/23 16:30 Nasal Cannula 3 04/10/23 16:15 Nasal Cannula 3 04/10/23 16:00 Nasal Cannula 3 04/10/23 15:45 Nasal Cannula 3 04/10/23 18:57 04/10/23 18:57 04/10/23 18:57 Nasal Cannula 3 04/10/23 18:30 Nasal Cannula 3 04/10/23 18:40 Room Air 04/10/23 18:00 Nasal Cannula 4 04/10/23 17:30 Nasal Cannula 4 04/10/23 17:00 Nasal Cannula 04/10/23 17:00 Nasal Cannula 3 04/10/23 16:00 04/10/23 15:25 Nasal Cannula 4 04/10/23 15:30 Nasal Cannula 4 04/10/23 15:20 Nasal Cannula 4 04/10/23 15:15 Room Air 04/10/23 13:50 04/10/23 13:50 Intake and Output 04/10/23 04/11/23 04/11/23 23:59 07:59 15:59 Intake Total 460 / 460 Output Total 300 / 1700 475 / 1100 625 / 1100 Balance -300 / -870 -475 / -640 -165 / -640 Intake: Intake, Oral Amount 360 / 360 Intake, Total IV Amount 100 / 100 Cefepime HCl 2 gm In 0.9 % 100 / 100 Sodium Chloride 100 ml @ 200 mls/hr IV Q8H [facility] Rx#:[id number] Output: Output, Urine Amount 300 / 1700 475 / 1100 625 / 1100 Other: Number of Voids 0 Weight 80.3 kg Patient Weight 04/11/23 23:59 Weight 80.3 kg Laboratory Results - last 24 hr 04/10/23 14:53: ABG O2 Sat (Measured) 80.7 L, POC VBG O2 Sat (Gisela) 81 H 04/11/23 05:39: WBC 5.7, RBC 4.09 L, Hgb 13.5 L, Hct 40.9 L, MCV 100.1 H, MCH 33.1 H, MCHC 33.1, RDW 13.6, Plt Count 238 D, MPV 7.7, Neut % (Auto) 82.8 H, Lymph % (Auto) 7.4 L, [place] % (Auto) 9.6 H, Eos % (Auto) 0.0 L, Baso % (Auto) 0.2, Neut # (Auto) 4.7, Lymph # (Auto) 0.4 L, [place] # (Auto) 0.5, Eos # (Auto) 0.0, Baso # (Auto) 0.0, Sodium 133 L, Potassium 4.8, Chloride 99, Carbon Dioxide 33 H, Anion Gap 5.8, BUN 28 H, Creatinine 0.90, Estimated Creat Clear 81, Estimated GFR 84, Est GFR ( Amer) 102, Glucose 128 H, Calcium 8.7, Total Bilirubin 0.3, AST 44, ALT 60, Alkaline Phosphatase 63, Total Protein 6.6, Albumin 3.8, Globulin 2.8, Albumin/Globulin Ratio 1.4, Triglycerides 141, Cholesterol 169, LDL Cholesterol Direct 75.81 L, VLDL Cholesterol 28, HDL Cholesterol 58, Cholesterol/HDL Ratio 2.9 I & O for Labs for Last 24 Hours: Intake & Output 04/08/23 04/09/23 04/10/23 04/11/23 23:59 23:59 23:59 23:59 Intake Total 1537 / 1887 1300 / 1890 830 / 830 460 / 460 Output Total 1650 / 1650 1750 / 1750 1475 / 1700 1100 / 1100 Balance -113 / 237 -450 / 140 -645 / -870 -640 / -640 Weight 80.3 kg 79.9 kg 80.3 kg 80.3 kg Microbiology Reports for the Last 24 Hours: Microbiology 04/08/23 21:00 Sputum - Expectorated Sputum Gram Stain - Final Constitutional: Present mild distress, average body habitus and chronically ill appearing Head: Present atraumatic Respiratory: Present prolonged expiratory phase, wheezes, distant breath sounds and diminished air movement; Absent rhonchi or crackles Comment:: barrel chested Cardiac: Present Reg Rate and Rhythm GI: Present soft and normal bowel sounds; Absent distention or tenderness Extremities: Present normal inspection and full ROM Skin: Present intact; Absent erythema Neuro: Present Grossly Intact, alert, awake, oriented x 3 and moves all extremities Assessment and Plan *Assessment and plan (1) Acute exacerbation of chronic obstructive pulmonary disease: Status: Acute Category: Medical Code(s): J44.1 - Chronic obstructive pulmonary disease with (acute) exacerbation (2) Acute on chronic respiratory failure with hypoxia and hypercapnia: Status: Acute Category: Medical Code(s): J96.21 - Acute and chronic respiratory failure with hypoxia; J96.22 - Acute and chronic respiratory failure with hypercapnia (3) Pneumonia: Status: Acute Category: Medical Code(s): J18.9 - Pneumonia, unspecified organism (4) Acute hyponatremia: Status: Acute Category: Medical Code(s): E87.1 - Hypo-osmolality and hyponatremia (5) CAP (community acquired pneumonia): Status: Acute Qualifiers: Laterality: right Lung location: lower lobe of lung Qualified Code(s): J18.9 - Pneumonia, unspecified organism Category: Medical Code(s): J18.9 - Pneumonia, unspecified organism (6) Alcohol use disorder, severe, in early remission: Status: Acute Category: Medical Code(s): F10.21 - Alcohol dependence, in remission (7) Tobacco dependence: Status: Acute Category: Medical Code(s): F17.200 - Nicotine dependence, unspecified, uncomplicated Plan Patient is a 67-year-old male with past medical history of COPD on 4 L nasal cannula at baseline who presented to hospital due to shortness of breath. Patient mentions he has been having worsening respiratory distress for the past few days, which is not improving, so he decided to come to the hospital. He also has past medical history of heart failure with preserved ejection fraction alcohol use, tobacco dependence. Patient is shown response to treatment. Currently on 4 L nasal cannula oxygen. Still feels quite dyspneic just walking across the room. Patient does not feel comfortable going home today, feels he would need to come right back. Will transition to oral antibiotics and steroids. Pulmonology continues to assist with care, appreciate their recommendations. Problems addressed as follows: COPD exacerbation Acute hypoxic hypercapnic respiratory failure Right lower lung masslike opacity suggestive of pneumonia, cannot rule out tumor -Pulmonology consulted, appreciate their recommendations. Continuing DuoNebs, transition to every 6 hours scheduled. -Discussed case with pulmonology today, transition to Trelegy inhaler. Will continue Levaquin to complete 5 days total of antibiotics. Transition to prednisone to complete 5 days total of steroids. White cell count normal at 5.[address] in 4 weeks, will make sure this is scheduled before we discharge him home. -Continue supplemental oxygen, goal saturation greater 90%. Currently on 4 L. -Repeat CBC ordered for the morning. Chronic heart failure with preserved ejection fraction -Right and left heart cath performed yesterday. No interventions, continue goal-directed therapy. Continue amlodipine 10 mg for blood pressure, bisoprolol 5 mg twice daily, Lipitor 40 mg nightly, Lasix 40 was daily, resume Lisinopril/HCTZ. Acute kidney injury: Resolved, creatinine 0.9, BUN 28. Repeat CMP ordered for the morning. Tobacco abuse: Continue with patches during hospitalization, will discharge with patches, stressed the importance of smoking cessation given patient's progressive dyspnea. Anticipate discharge tomorrow.
--- NOTE | 2023-04-11 13:48 | EXP.CARD.PN ---
Subjective Subjective Date: 04/11/23 Time: 09:00 Principal diagnosis: SOB, CAD Interval history: This is a 67-year-old white gentleman who was admitted to the hospital with shortness of breath and tachycardia. The patient had sinus tachycardia versus SVT and was started on bisoprolol. His heart rate is now under good control. He did undergo left cardiac catheterization yesterday due to shortness of breath and a CT scan which showed significant three-vessel coronary artery calcifications involving the left main. The patient had mild nonocclusive CAD and mild pulmonary hypertension as well as mild diastolic dysfunction. This morning he denies any chest pain or pressure. He states that his shortness of breath remains unchanged. He denies any lower extremity edema. He denies any fever, chills, nausea, vomiting, diarrhea, PND orthopnea. He states that he continues to have a productive cough. Exam Data for Last 24 hours Vital signs and Labs for Last 24 Hours: Temp Pulse Resp BP Pulse Ox O2 Del Method O2 Flow Rate 98.2 F 64 20 110/58 L 99 Nasal Cannula 2 04/11/23 08:00 04/11/23 12:00 04/11/23 12:00 04/11/23 12:00 04/11/23 12:00 04/11/23 13:00 04/11/23 13:00 FiO2 30 04/08/23 22:34 Laboratory Results - last 24 hr 04/10/23 14:53: ABG O2 Sat (Measured) 80.7 L, POC VBG O2 Sat (Gisela) 81 H 04/11/23 05:39: WBC 5.7, RBC 4.09 L, Hgb 13.5 L, Hct 40.9 L, MCV 100.1 H, MCH 33.1 H, MCHC 33.1, RDW 13.6, Plt Count 238 D, MPV 7.7, Neut % (Auto) 82.8 H, Lymph % (Auto) 7.4 L, [place] % (Auto) 9.6 H, Eos % (Auto) 0.0 L, Baso % (Auto) 0.2, Neut # (Auto) 4.7, Lymph # (Auto) 0.4 L, [place] # (Auto) 0.5, Eos # (Auto) 0.0, Baso # (Auto) 0.0, Sodium 133 L, Potassium 4.8, Chloride 99, Carbon Dioxide 33 H, Anion Gap 5.8, BUN 28 H, Creatinine 0.90, Estimated Creat Clear 81, Estimated GFR 84, Est GFR ( Amer) 102, Glucose 128 H, Calcium 8.7, Total Bilirubin 0.3, AST 44, ALT 60, Alkaline Phosphatase 63, Total Protein 6.6, Albumin 3.8, Globulin 2.8, Albumin/Globulin Ratio 1.4, Triglycerides 141, Cholesterol 169, LDL Cholesterol Direct 75.81 L, VLDL Cholesterol 28, HDL Cholesterol 58, Cholesterol/HDL Ratio 2.9 I & O for Last 24 hours: Intake & Output 04/08/23 04/09/23 04/10/23 04/11/23 23:59 23:59 23:59 23:59 Intake Total 1537 / 1887 1300 / 1890 830 / 830 460 / 460 Output Total 1650 / 1650 1750 / 1750 1475 / 1700 1100 / 1100 Balance -113 / 237 -450 / 140 -645 / -870 -640 / -640 Weight 177 lb 0.499 oz 176 lb 2.389 oz 177 lb 0.499 oz 177 lb 0.499 oz Microbiology Reports for the Last 24 Hours: Microbiology 04/08/23 21:00 Sputum - Expectorated Sputum Gram Stain - Final Constitutional Constitutional: no acute distress and average body habitus *Routine HEENT Exam Head: Present normocephalic and atraumatic ENT: Present mucous membranes moist *Routine Neck Exam Neck: Present supple, full ROM and normal carotid upstroke; Absent JVD, carotid bruit or lymphadenopathy *Routine Respiratory Exam Respiratory: Present CTA bilaterally, normal respiratory effort, able to speak in complete sentences and symmetric chest movement *Routine Cardiovascular Exam Cardiovascular: Present RRR, Normal S1 and Normal S2; Absent murmur or gallop *Routine Abdominal Exam Abdominal: Present soft and normoactive bowel sounds; Absent tenderness, distended or organomegaly *Routine Extremities Exam Extremities: Present full ROM, pulses intact and normal capillary refill; Absent cyanosis, clubbing or edema *Routine Skin Exam Skin: Present intact and warm; Absent erythema *Routine Neurological Exam Neurological: Present alert, oriented X3 and CN II-XII intact; Absent sensory deficit or motor deficit Routine Psychiatric Exam Psychiatric: Present normal affect Progress Note: A&P Assessment and plan (1) Acute exacerbation of chronic obstructive pulmonary disease: Status: Acute (2) Acute on chronic respiratory failure with hypoxia and hypercapnia: Status: Acute (3) Pneumonia: Status: Acute (4) Coronary artery calcification seen on CAT scan: Status: Acute (5) CAD in [place] artery: Status: Acute (6) Hypertension: Status: Acute (7) Hyperlipidemia: Status: Acute (8) Shortness of Breath: Status: Acute (9) Cough: Status: Acute Assessment and Plan Assessment and Plan for All Diagnoses:: Plan: 1. This is a 67-year-old white gentleman is admitted to the hospital with shortness of breath and tachycardia. The patient has been started on bisoprolol for SVT versus sinus tachycardia. He is now rate controlled. Continue bisoprolol on an outpatient basis. 2. Left cardiac catheterization showed mild coronary artery disease. We do recommend aspirin 81 mg daily and a statin. 3. The patient does have shortness of breath. He is currently being treated for COPD exacerbation. Will defer this to the hospitalist. 4. His blood pressure is well-controlled. 5. His LDL goal is less than 55. His LDL is 75. He has been started on Lipitor 40 mg p.o. nightly. 6. Tobacco cessation is advised and counseled. 7. Stop hydrochlorothiazide. Change Lasix to 40 mg p.o. daily secondary to his mild pulmonary hypertension and diastolic dysfunction. 8. No further recommendations at this time from a cardiac standpoint. The patient is stable for discharge home from a cardiac standpoint when he is medically cleared by the hospitalist. The patient will need to follow-up in cardiology clinic in 1 to 2 weeks. Thank you for the opportunity to help her to spend the care of this patient. All recommendations and orders are per Dr. Smith.
--- NOTE | 2023-04-11 14:48 | PC.NURSE ---
Pt. aox 4, up astol, no pain reported, 02-2l NC, Right IJ and Right wrist dressings c/d/i, pt to d/c in am.
[2023-04-11] MEDS: ATORVASTATIN 40MG TABLET 40 MG PO (20:51)
[2023-04-12] VITALS: BP 105/70; PULSE 52; PULSE 77; RESP 24; TEMP 36.6; O2SAT 90
[2023-04-12] MEDS: HEPARIN SODIUM 5,000 UNIT/ML VIAL 5000 UNIT SQ ×2 (03:03→10:43)
[2023-04-12 04:00] VITALS: BP 101/66; PULSE 80; RESP 20; TEMP 36.9; O2SAT 98; BMI 25.3
[2023-04-12] MEDS: FLUTICASONE/UMECLIDIN/VILANTER 100/62.5/25MCG INHALER 1 PUFF IH (06:35)
[2023-04-12 08:00] VITALS: BP 119/66; PULSE 56; RESP 19; TEMP 36.9; O2SAT 93
[2023-04-12 08:01] LABS: Alanine Aminotransferase 48 U/L (12-78); Albumin Level 3.8 g/dl (3.5-5.0); Albumin/Globulin Ratio 1.4 (1.1-1.8); Alkaline Phosphatase 64 U/L (38-126); Aspartate Amino Transferase 37 U/L (17-59); Bilirubin,Total 0.4 mg/dl (0.2-1.3); Blood Urea Nitrogen 40 mg/dl (9-20); Calcium 8.9 mg/dl (8.4-10.2); Chloride 96 mmol/L (98-107); Creatinine Clearance Estimated 68 mL/min (50-200); Estimated Glomerular Filt Rate 60 ml/min (>60); GFR (African American) 73 ML/MIN (>60); Globulin 2.7 g/dL (1.3-3.2); Glucose 91 mg/dl (74-100); Potassium 4.4 mmoL/L (3.5-5.1); Total Protein,Serum 6.5 g/dl (6.3-8.2)
[2023-04-12 08:09] LABS: Carbon Dioxide 38 mmol/L (22.0-30.0)
[2023-04-12 08:14] LABS: Anion Gap 4.4 mEq/L (5-15); Sodium 134 mmol/L (136-145)
[2023-04-12 08:22] LABS: Basophils % 0.2 % (0.1-2.0); Hemoglobin 14.2 g/dL (14.1-18.0); Lymphocytes # 1.4 K/mm3 (0.7-4.5); Lymphocytes % 24.5 % (10-50); Mean Corpuscular HGB Conc 33.2 g/dL (31.8-35.4); Mean Corpuscular Hemoglobin 33.4 pg (27.0-31.2); Mean Corpuscular Volume 100.9 fl (80-94); Mean Platelet Volume 7.9 fl (7.4-10.4); Monocytes # 0.7 K/mm3 (0.1-1.0); Monocytes % 11.7 % (1.7-9.3); Neutrophils # 3.5 K/mm3 (1.8-7.8); Neutrophils % 63.5 % (37.0-80.0); Platelet Count 274 K/mm3 (142-424); Red Blood Count 4.26 M/mm3 (4.60-6.20); Red Cell Distribution Width 13.5 % (11.5-17.5); White Blood Count 5.5 K/mm3 (4.8-10.8)
[2023-04-12 08:27] LABS: Magnesium 2.1 mg/dl (1.6-2.3)
[2023-04-12] MEDS: PANTOPRAZOLE 40MG TABLET 40 MG PO (08:42)
[2023-04-12] MEDS: ASPIRIN EC 81MG TABLET 81 MG PO (08:42)
[2023-04-12] MEDS: FOLIC ACID 1MG TABLET 1 MG PO (08:42)
[2023-04-12] MEDS: CITALOPRAM 40MG TABLET 40 MG PO (08:42)
[2023-04-12] MEDS: NICOTINE 21MG/24HR PATCH 21 MG TD (08:43)
[2023-04-12] MEDS: AMLODIPINE 10MG TABLET 10 MG PO (08:43)
[2023-04-12] MEDS: LISINOPRIL 20MG TABLET 20 MG PO (08:43)
[2023-04-12] MEDS: THIAMINE 100MG TABLET 100 MG PO (08:43)
[2023-04-12] MEDS: SENNOSIDES 8.6MG/DOCUSATE 50MG TABLET 1 TAB PO (08:43)
--- NOTE | 2023-04-12 09:46 | EXP.PULM.PN ---
Subjective *Date: 04/12/23 *Time: 12:12 Interval history: No acute respiratory vents overnight. Patient denies any new respiratory complaints. Pulmonology Exam Inpatient Vital signs and Labs for Last 24 Hours: Temp Pulse Resp BP Pulse Ox O2 Del Method O2 Flow Rate 98.5 F 56 L 19 119/66 93 L Nasal Cannula 4 04/12/23 08:00 04/12/23 08:00 04/12/23 08:00 04/12/23 08:00 04/12/23 08:00 04/12/23 08:00 04/12/23 08:00 FiO2 30 04/08/23 22:34 Laboratory Results - last 24 hr 04/12/23 07:06: WBC 5.5, RBC 4.26 L, Hgb 14.2, Hct 43.0, MCV 100.9 H, MCH 33.4 H, MCHC 33.2, RDW 13.5, Plt Count 274, MPV 7.9, Neut % (Auto) 63.5, Lymph % (Auto) 24.5, [place] % (Auto) 11.7 H, Eos % (Auto) 0.0 L, Baso % (Auto) 0.2, Neut # (Auto) 3.5, Lymph # (Auto) 1.4, [place] # (Auto) 0.7, Eos # (Auto) 0.0, Baso # (Auto) 0.0, Sodium 134 L, Potassium 4.4, Chloride 96 L, Carbon Dioxide 38 H, Anion Gap 4.4 L, BUN 40 H D, Creatinine 1.20 D, Estimated Creat Clear 68, Estimated GFR 60, Est GFR ( Amer) 73 D, Glucose 91, Calcium 8.9, Magnesium 2.1, Total Bilirubin 0.4, AST 37, ALT 48, Alkaline Phosphatase 64, Total Protein 6.5, Albumin 3.8, Globulin 2.7, Albumin/Globulin Ratio 1.4 I & O for Labs for Last 24 Hours: Intake & Output 04/09/23 04/10/23 04/11/23 04/12/23 23:59 23:59 23:59 23:59 Intake Total 1300 / 1890 830 / 830 820 / 820 240 / 240 Output Total 1750 / 1750 1475 / 1700 1600 / 1750 550 / 550 Balance -450 / 140 -645 / -870 -780 / -930 -310 / -310 Weight 176 lb 2.389 oz 177 lb 0.499 oz 177 lb 0.499 oz 177 lb Microbiology Reports for the Last 24 Hours: Microbiology 04/08/23 21:00 Sputum - Expectorated Sputum Gram Stain - Final 04/08/23 21:00 Sputum - Expectorated Sputum Sputum Culture - Preliminary Constitutional: Present mild distress Head: Present normocephalic and atraumatic ENT: Present normal exam, normal oropharynx and mucous membranes moist Neck: Present normal inspection and full ROM Respiratory: Present decreased breath sounds, respiratory distress and able to speak in complete sentences; Absent wheezes Cardiac: Present S1/S2, Tachycardia and radial pulses present GI: Present soft and distention; Absent tenderness or guarding Skin: Present intact; Absent cyanosis or jaundice Neuro: Present alert, awake and oriented x 3 Extremities: Present normal inspection; Absent clubbing or cyanosis Psychiatric: Present normal affect and cooperative Assessment and Plan *Assessment and plan (1) Acute exacerbation of chronic obstructive pulmonary disease: Status: Acute Category: Medical Code(s): J44.1 - Chronic obstructive pulmonary disease with (acute) exacerbation (2) Acute on chronic respiratory failure with hypoxia and hypercapnia: Status: Acute Category: Medical Code(s): J96.21 - Acute and chronic respiratory failure with hypoxia; J96.22 - Acute and chronic respiratory failure with hypercapnia (3) Pneumonia: Status: Acute Category: Medical Code(s): J18.9 - Pneumonia, unspecified organism Plan Ms. Flores is a 66-year-old male current smoker greater than 30 with medical diagnoses given Trelegy inhaler, chronic hypoxic respiratory failure, oxygen at baseline last seen in the hospital August 2022 for COPD exacerbation community-acquired pneumonia presented again to the hospital with worsening respiratory distress. Afebrile. No evidence of leukocytosis upon admission. ABG upon admission Did not show evidence of severe hypoxic respiratory failure. Mild hypercarbic respiratory failure. CTA upon this admission reviewed, no evidence of pulmonary embolism. Right lower lobe pleural-based airspace disease. The patient did have a smaller nodule on her prior CT from at the same location. Patient was initiated on cefepime and vancomycin along with DuoNebs every 6 scheduled. Interval update: No acute respiratory vents overnight. Continued to be receiving nasal cannula oxygen supplementation. On Trelegy 100 inhaler along with prednisone levofloxacin. Plan: -Continue antibiotics to complete a total of 7-day course -Continue oxygen supplementation to maintain O2 saturation goal of 90% above, currently on 2 L Trelegy 100 inhaler daily scheduled Albuterol/DuoNebs every 6 hours and as needed with Prednisone 40 mg daily x 5 days starting 04/11/23 # Patient also noted to have right lower lobe pleural-based mass/airspace disease which appeared to be concerning at this point of time. Patient will need follow-up CT chest as an outpatient basis in 4 to 6 weeks after discharge to further determine the need for PET scan/CT-guided biopsy for the noted abnormality to rule out possible malignant etiology # Thank for involving pulmonary in this patient care. Will follow the patient in pulmonary clinic in 4 weeks postdischarge with a CT chest without contrast prior to clinic visit.
[2023-04-12] MEDS: FUROSEMIDE 40 MG TABLET PO (10:43)
[2023-04-12] MEDS: levoFLOXacin 750 MG TABLET PO (10:43)
[2023-04-12] MEDS: predniSONE 20MG TAB 40 MG PO (10:43)
--- NOTE | 2023-04-12 10:50 | P.DS_ITS ---
General Admission date:: 04/06/23 Discharge date: 04/12/23 HPI HPI HPI: Patient is a 67-year-old male with past medical history of COPD on 4 L nasal cannula at baseline who presented to hospital due to shortness of breath. Patient mentions he has been having worsening respiratory distress for the past few days, which is not improving, so he decided to come to the hospital. He also has past medical history of heart failure with preserved ejection fraction alcohol use, tobacco dependence. He smoke 4-5 cigs/day, and 8 beers/day. Hospital Course Hospital Course Hospital Course: Patient is a 67-year-old male with past medical history of COPD on 4 L nasal cannula at baseline who presented to hospital due to shortness of breath. Patient mentions he has been having worsening respiratory distress for the past few days, which is not improving, so he decided to come to the hospital. He also has past medical history of heart failure with preserved ejection fraction alcohol use, tobacco dependence. Patient is shown response to treatment. Currently on 4 L nasal cannula oxygen. Respiratory symptoms showed improvement though he does still have some dyspnea with exertion. Stable to discharge home with transition to oral antibiotics and steroids. Plan to follow-up with cardiology and pulmonology in the coming weeks as an outpatient. Problems addressed as follows: COPD exacerbation Acute hypoxic hypercapnic respiratory failure Right lower lung masslike opacity suggestive of pneumonia, cannot rule out tumor -Pulmonology consulted, appreciate their recommendations. Continuing DuoNebs, transition to every 6 hours scheduled. Patient was transitioned to Trelegy inhaler. Initiated on antibiotics , plan to complete 5 days of Levaquin with transition to steroids orally with prednisone to complete 5 days total. White cell count normal on day of discharge. Needs repeat CT in 4 weeks. Continue supplemental oxygen, goal saturation greater 90%. Currently on 4 L, which is his baseline. Chronic heart failure with preserved ejection fraction -Right and left heart cath performed 04/10, No interventions, continue goal- directed therapy. Continue amlodipine 10 mg for blood pressure, bisoprolol 5 mg twice daily, Lipitor 40 mg nightly, Lasix 40 was daily, resume Lisinopril/HCTZ. Acute kidney injury: Resolved, creatinine 0.9, BUN 28. Recommend repeat CMP . At follow-up Tobacco abuse: Continue with patches during hospitalization, will discharge with patches, stressed the importance of smoking cessation given patient's progressive dyspnea. Exam Data for Last 24 hours Vital signs and Labs for Last 24 Hours: Temp Pulse Resp BP Pulse Ox O2 Del Method O2 Flow Rate 98.2 F 64 20 110/58 L 99 Nasal Cannula 2 04/11/23 08:00 04/11/23 12:00 04/11/23 12:00 04/11/23 12:00 04/11/23 12:00 04/11/23 13:00 04/11/23 13:00 FiO2 30 04/08/23 22:34 Laboratory Results - last 24 hr 04/10/23 14:53: ABG O2 Sat (Measured) 80.7 L, POC VBG O2 Sat (Gisela) 81 H 04/11/23 05:39: WBC 5.7, RBC 4.09 L, Hgb 13.5 L, Hct 40.9 L, MCV 100.1 H, MCH 33.1 H, MCHC 33.1, RDW 13.6, Plt Count 238 D, MPV 7.7, Neut % (Auto) 82.8 H, Lymph % (Auto) 7.4 L, [place] % (Auto) 9.6 H, Eos % (Auto) 0.0 L, Baso % (Auto) 0.2, Neut # (Auto) 4.7, Lymph # (Auto) 0.4 L, [place] # (Auto) 0.5, Eos # (Auto) 0.0, Baso # (Auto) 0.0, Sodium 133 L, Potassium 4.8, Chloride 99, Carbon Dioxide 33 H, Anion Gap 5.8, BUN 28 H, Creatinine 0.90, Estimated Creat Clear 81, Estimated GFR 84, Est GFR ( Amer) 102, Glucose 128 H, Calcium 8.7, Total Bilirubin 0.3, AST 44, ALT 60, Alkaline Phosphatase 63, Total Protein 6.6, Albumin 3.8, Globulin 2.8, Albumin/Globulin Ratio 1.4, Triglycerides 141, Cholesterol 169, LDL Cholesterol Direct 75.81 L, VLDL Cholesterol 28, HDL Cholesterol 58, Cholesterol/HDL Ratio 2.9 I & O for Last 24 hours: Intake & Output 04/08/23 04/09/23 04/10/23 04/11/23 23:59 23:59 23:59 23:59 Intake Total 1537 / 1887 1300 / 1890 830 / 830 460 / 460 Output Total 1650 / 1650 1750 / 1750 1475 / 1700 1100 / 1100 Balance -113 / 237 -450 / 140 -645 / -870 -640 / -640 Weight 80.3 kg 79.9 kg 80.3 kg 80.3 kg Microbiology Reports for the Last 24 Hours: Microbiology 04/08/23 21:00 Sputum - Expectorated Sputum Gram Stain - Final Constitutional Constitutional: no acute distress, chronically ill appearing and cooperative *Routine HEENT Exam Head: Present normocephalic Eye: Present EOMI and PERRL ENT: Present mucous membranes moist *Routine Neck Exam Neck: Present supple; Absent JVD or lymphadenopathy *Routine Respiratory Exam Respiratory: Present rhonchi, wheezes, diminished air movement, normal respiratory effort and symmetric chest movement; Absent respiratory distress *Routine Cardiovascular Exam Cardiovascular: Present RRR *Routine Abdominal Exam Abdominal: Present soft and normoactive bowel sounds; Absent tenderness *Routine Rectal Exam Patient deferred: visual exam *Routine Exam Patient deferred: penile exam *Routine Extremities Exam Extremities: Present full ROM, pulses intact and normal capillary refill; Absent cyanosis, clubbing or edema *Routine Skin Exam Skin: Present warm; Absent rash *Routine Neurological Exam Neurological: Present alert, oriented X3, moving all extremities, vision grossly intact, hearing grossly intact and normal speech; Absent sensory deficit or motor deficit Routine Psychiatric Exam Psychiatric: Present normal affect, normal thought process and cooperative Results Data Completed and Pending Labs on day of discharge: Labs from last 24 hours 04/11/23 04/10/23 05:39 14:53 WBC 5.7 RBC 4.09 L Hgb 13.5 L Hct 40.9 L MCV 100.1 H MCH 33.1 H MCHC 33.1 RDW 13.6 Plt Count 238 D MPV 7.7 Neut % (Auto) 82.8 H Lymph % (Auto) 7.4 L [place] % (Auto) 9.6 H Eos % (Auto) 0.0 L Baso % (Auto) 0.2 Neut # (Auto) 4.7 Lymph # (Auto) 0.4 L [place] # (Auto) 0.5 Eos # (Auto) 0.0 Baso # (Auto) 0.0 ABG O2 Sat (Measured) 80.7 L POC VBG O2 Sat (Gisela) 81 H Sodium 133 L Potassium 4.8 Chloride 99 Carbon Dioxide 33 H Anion Gap 5.8 BUN 28 H Creatinine 0.90 Estimated Creat Clear 81 Estimated GFR 84 Est GFR ( Amer) 102 Glucose 128 H Calcium 8.7 Total Bilirubin 0.3 AST 44 ALT 60 Alkaline Phosphatase 63 Total Protein 6.6 Albumin 3.8 Globulin 2.8 Albumin/Globulin Ratio 1.4 Triglycerides 141 Cholesterol 169 LDL Cholesterol Direct 75.81 L VLDL Cholesterol 28 HDL Cholesterol 58 Cholesterol/HDL Ratio 2.9 DS: Diagnosis Discharge Diagnosis (1) Acute exacerbation of chronic obstructive pulmonary disease: Status: Acute Code(s): J44.1 - Chronic obstructive pulmonary disease with (acute) exacerbation (2) Acute on chronic respiratory failure with hypoxia and hypercapnia: Status: Acute Code(s): J96.21 - Acute and chronic respiratory failure with hypoxia; J96.22 - Acute and chronic respiratory failure with hypercapnia (3) Pneumonia: Status: Acute Code(s): J18.9 - Pneumonia, unspecified organism Meds Home Medications and Allergies Home Medications Medication Instructions Recorded Confirmed Type albuterol sulfate 90 mcg/actuation 1 - 2 puffs IH Q4HP PRN Shortness 03/24/20 04/06/23 History aerosol inhaler Of Breath Or Wheezing amlodipine 10 mg tablet 10 mg PO DAILY 03/24/20 04/06/23 History escitalopram oxalate 20 mg tablet 20 mg PO DAILY 03/24/20 04/06/23 History pantoprazole 40 mg tablet,delayed 40 mg PO DAILY 08/12/22 04/06/23 History release ipratropium 20 mcg-albuterol 100 1 puff inhalation QID 04/06/23 04/06/23 History mcg/actuation mist for inhalation (Combivent Respimat) lisinopril 20 1 tab PO DAILY 04/07/23 04/07/23 History mg-hydrochlorothiazide 12.5 mg tablet aspirin 81 mg tablet,delayed 81 mg PO DAILY 30 days #30 tabs 04/11/23 Rx release atorvastatin 40 mg tablet 40 mg PO HS 30 days #30 tabs 04/11/23 Rx bisoprolol fumarate 5 mg tablet 5 mg PO BID 30 days #60 tabs 04/11/23 Rx fluticasone fur. 100 mcg-umeclid 1 inh inhalation DAILY 30 days #60 04/11/23 Rx 62.5 mcg-vilant 25 mcg ea inhalat.powder (Trelegy Ellipta) furosemide 40 mg tablet 40 mg PO DAILY 30 days #30 tabs 04/11/23 Rx nicotine 21 mg/24 hr daily 21 mg transdermal DAILY 30 days 04/11/23 Rx transdermal patch #28 ea prednisone 20 mg tablet 40 mg PO DAILY 4 days #8 tabs 04/11/23 Rx levofloxacin 750 mg tablet 750 mg PO 1100 2 days #2 tabs 04/12/23 Rx New Prescriptions to Start Prescriptions: aspirin Christine,Sunday atorvastatin Christine,Sunday bisoprolol fumarate Christine,Sunday Trelegy Ellipta Christine,Sunday furosemide Christine,Sunday levofloxacin Christine,Sunday nicotine Christine,Sunday prednisone Christine,Sunday Allergies Allergy/AdvReac Type Severity Reaction Status Date / Time erythromycin base Allergy Unknown NA-NAUSEA/V Verified 11/19/18 11:23 [ERYTHROMYCIN BASE] OMITING Discharge Plan Disposition Patient Disposition: Home Health Service Condition: Fair Discharge Order Discharge Orders: Discharge Order (Routine); Ordered 04/12/23 Ordered By: Sunday King Follow up Plan Follow up with: Jana Armendariz [Primary Care Provider] - 04/21/23 5:00 pm Bryan Ramirez MD [Physician] - 05/15/23 1:00 pm (CT Chest wo contrast May 09 at 3:30 ) Filipe Smith MD [Staff Physician] - 04/26/23 1:30 pm Prescriptions/Medication Reconciliation: New prednisone 20 mg Tablet 40 mg PO DAILY 4 Days Qty: 8 0RF aspirin 81 mg Tablet,Delayed Release (Dr/Ec) 81 mg PO DAILY 30 Days Qty: 30 0RF bisoprolol fumarate 5 mg Tablet 5 mg PO BID 30 Days Qty: 60 0RF atorvastatin 40 mg Tablet 40 mg PO HS 30 Days Qty: 30 0RF nicotine 21 mg/24 hr Patch 24 Hour 21 mg transdermal DAILY 30 Days Qty: 28 0RF furosemide 40 mg Tablet 40 mg PO DAILY 30 Days Qty: 30 0RF levofloxacin 750 mg Tablet 750 mg PO 1100 2 Days Qty: 2 0RF Continued pantoprazole 40 mg tablet,delayed release (DR/EC) 40 mg PO DAILY Combivent Respimat 20-100 mcg/actuation mist 1 puff INHALATION QID lisinopril-hydrochlorothiazide 20-12.5 mg tablet 1 tab PO DAILY Trelegy Ellipta 100-62.5-25 mcg blister with device 1 inh INHALATION DAILY 30 Days Qty: 60 0RF amlodipine 10 MG tablet 10 mg PO DAILY albuterol sulfate 8.5 GM HFA aerosol inhaler 1 - 2 puffs IH Q4HP PRN (Reason: Shortness Of Breath Or Wheezing) escitalopram oxalate 20 MG tablet 20 mg PO DAILY Discontinued bisoprolol fumarate 5 mg tablet 5 mg PO DAILY rosuvastatin 10 mg tablet 10 mg PO HS furosemide 20 mg tablet 20 mg PO MOWEFR Other Ambulatory Orders: CT chest wo con (Routine) Timeframe: 4 Weeks Facility: [facility] - Location: Radiology Ordered By: Bryan Ramirez Problem Reconciliation Problems Reviewed?: Yes Patient Discharge Instructions ACTIVITY: Continue current activity DIET: continue same diet Patient Instructions: DI for Chronic Obstructive Pulmonary Disease, DI for Hyponatremia, DI for Acute Kidney Injury Providers Primary Care Provider: Jana Armendariz Admit Provider: Hernan Tam Attending Provider: Hernan Tam
[2023-04-12] MEDS: BISOPROLOL 5MG TABLET 5 MG PO (11:03)
--- NOTE | 2023-04-12 17:04 | CARE MANAGER ---
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
--- NOTE | 2023-04-14 14:39 | CARE MANAGER ---
Spoke with patient related to hospital discharge. He states he got all of his medications and is aware of his follow up appointments. Denies questions or concerns. MARIAM Godinez
== END 2023-04-12 12:51 | disposition home health service (06) | DRG 193 ==
LOC: ER 16:07 → 2ND 16:51 → ICU 04-10 02:35 → 2ND 04-10 16:30
PROVIDERS: Internal Medicine; Internal Medicine Adolescent Medicine; Internal Medicine Pulmonary Disease; Nurse Practitioner Family; Student in an Organized Health Care Education/Training Program; Admitting Provider Internal Medicine; Emergency Provider Emergency Medicine; PCP Nurse Practitioner Family; Visit Provider Internal Medicine
PROC: 4A023N8 Measurement of Cardiac Sampling and Pressure, Bilateral, Percutaneous Approach (ICD-10-PCS; principal; 2023-04-10 14:15)
DX: J18.9 Pneumonia, unspecified organism (principal); J96.21 Acute and chronic respiratory failure with hypoxia; J44.1 Chronic obstructive pulmonary disease with (acute) exacerbation; N17.9 Acute kidney failure, unspecified; E87.1 Hypo-osmolality and hyponatremia; I50.32 Chronic diastolic (congestive) heart failure; J44.0 Chronic obstructive pulmonary disease with (acute) lower respiratory infection; E78.5 Hyperlipidemia, unspecified; E66.9 Obesity, unspecified; Z68.25 Body mass index [BMI] 25.0-25.9, adult; Z99.81 Dependence on supplemental oxygen; F10.21 Alcohol dependence, in remission; F17.200 Nicotine dependence, unspecified, uncomplicated; I11.0 Hypertensive heart disease with heart failure; I25.119 Atherosclerotic heart disease of native coronary artery with unspecified angina pectoris
CPT/HCPCS: 36415; 71045; 71275; 80048; 80053; 80061; 80202; 82803; 82810; 83605; 83735; 83880; 84484; 85007; 85025; 87070; 87205; 87632; 87635; 87636; 93005; 93306; 93460; 94640; 94660; 94761; 97116; 97161; 97165; 99152; 99153; 99291; C1725; C1760; C1769; C1894; J0456; J0696; J1644; J3475; Q9967

== ENCOUNTER 2023-05-22 10:04 | Inpatient (IN) | payer MEDICARE, SELFPAY ==
[2023-05-22] VITALS (25 sets, daily range): BP systolic 72–136; BP diastolic 39–87; PULSE 69–142; RESP 15–34; TEMP 36.4–37.7; O2SAT 93–100; BMI 20.7; BMI 29.1
--- NOTE | 2023-05-22 10:03 | PC.NURSE ---
DR GONZALEZ AT BEDSIDE
--- NOTE | 2023-05-22 10:05 | XR_ITS ---
FINAL REPORT CLINICAL HISTORY: Shortness of breath COMPARISON: 04/06/2023 FINDINGS: The heart size is normal. The mediastinum is normal. The lungs are hyperinflated. There is scarring at the lung bases. There is no focal infiltrate or edema. There are no pleural effusions. There is no pneumothorax. There is no osseous abnormality. IMPRESSION: Hyperinflated lungs with scarring at the lung bases, similar to the prior study. Reviewed, Interpreted and Dictated by Gabe Rodriguez MD Transcribed by Yuli Godoy Authenticated and [facility]
--- NOTE | 2023-05-22 10:05 | ECG_ITS ---
APPROVED REPORT Exam: Resting ECG HR:139 bpm ECG Measurements Heart Rate 139 AXES NJ 140 P 89 QRSd 82 QRS 83 QT 295 T 90 QTc 376 Conclusion SINUS TACHYCARDIA MODERATE ST DEPRESSION [0.05+ mV ST DEPRESSION] ABNORMAL ECG UNCONFIRMED REPORT Electronically signed by : Donta Moyer MD 05/23/2023 20:12:10
--- NOTE | 2023-05-22 10:09 | HMH.EDGENADL ---
Discharge Plan Disposition Patient Disposition: Admitted Condition: Critical Clinical Impressions Clinical Impression: COPD exacerbation, Hypoxia, Hypotension, Elevated brain natriuretic peptide (BNP) level Discharge ED Provider: Baljit Oneill Adult HPI General Chief complaint: Shortness of Breath/Dyspnea Stated complaint: SOB Time Seen by Provider: 05/22/23 10:05 History of Present Illness HPI narrative: 67-year-old male with past medical history significant for COPD on 4 L of oxygen at home, DM2, HTN, CAD, HLD, heart failure, presents today for evaluation concerning shortness of breath that is worsened over the past couple of days. EMS reports that patient's oxygen saturation was in the 80s on room air. EMS gave 2 DuoNeb's and 125 Solu-Medrol en route to ED. Attempted CPAP however patient cannot tolerate. Patient denies have any fevers, chills, chest pain, nausea, vomiting, abdominal pain, lower extremity edema. He does report a productive cough noting that his sputum color has changed from clear to yellow. No further complaints. Related Data Home Medications Medication Instructions Recorded Confirmed albuterol sulfate 90 mcg/actuation 2 puffs IH Q4HP PRN Shortness Of 03/24/20 05/22/23 aerosol inhaler Breath Or Wheezing amlodipine 10 mg tablet 10 mg PO DAILY High Blood Pressure 03/24/20 05/22/23 escitalopram oxalate 20 mg tablet 20 mg PO DAILY Mood 03/24/20 05/22/23 pantoprazole 40 mg tablet,delayed 40 mg PO DAILY Acid Reflux 08/12/22 05/22/23 release ipratropium 20 mcg-albuterol 100 1 puff inhalation QID Breathing 04/06/23 05/22/23 mcg/actuation mist for inhalation Problems (Combivent Respimat) lisinopril 20 1 tab PO DAILY High Blood Pressure 04/07/23 05/22/23 mg-hydrochlorothiazide 12.5 mg tablet aspirin 81 mg tablet,delayed 81 mg PO DAILY Heart Health 05/22/23 05/22/23 release atorvastatin 40 mg tablet 40 mg PO HS Cholesterol 05/22/23 05/22/23 bisoprolol fumarate 5 mg tablet 5 mg PO DAILY High Blood Pressure 05/22/23 05/22/23 fluticasone fur. 100 mcg-umeclid 1 inh inhalation DAILY Breathing 05/22/23 05/22/23 62.5 mcg-vilant 25 mcg Problems inhalat.powder (Trelegy Ellipta) folic acid 1 mg tablet 1 mg PO DAILY Supplement 05/22/23 05/22/23 furosemide 40 mg tablet 40 mg PO DAILY Fluid 05/22/23 05/22/23 nicotine 21 mg/24 hr daily 21 mg transdermal DAILY Smoking 05/22/23 05/22/23 transdermal patch Cessation Allergies Allergy/AdvReac Type Severity Reaction Status Date / Time erythromycin base Allergy Unknown NA-NAUSEA/V Verified 11/19/18 11:23 [ERYTHROMYCIN BASE] OM[facility]ING [facility] Disclaimer: The information contained in this section may have been updated after the patient was seen, as this information can be updated by other users. Medical History (Updated 05/22/23 @ 13:56 by Baljit Oneill DO) Alcohol use disorder, severe, in early remission Atypical angina CAD in [place] artery CAP (community acquired pneumonia) COPD (chronic obstructive pulmonary disease) Coronary artery calcification seen on CAT scan Cough Hilar lymphadenopathy Hyperlipidemia Hypertension Nodule of right lung Obesity (BMI 30-39.9) Pneumonia Shortness of Breath Tobacco dependence Surgical History History of colonoscopy Family History Mother Lung cancer Father COPD (chronic obstructive pulmonary disease) Social History (Updated 04/06/23 @ 17:57 by Franchesca Chawla, RN) Smoking Status: Current every day smoker tobacco type: cigarettes packs per day: 2 second hand exposure: No alcohol intake: current current occupational status: disabled Travel in the last 8 weeks: None household members: significant other caffeine: No ROS Obtained: Yes All systems reviewed & no additional complaints except as documented Physical Exam General General appearance: alert and in no apparent distress Head Head exam: atraumatic and normocephalic Eye Eye exam: Present normal appearance, PERRL and EOMI ENT ENT exam: Present normal oropharynx and mucous membranes moist Neck Neck exam: Present full ROM; Absent meningismus Respiratory Respiratory exam: Present respiratory distress, wheezes and accessory muscle use; Absent stridor Expanded Respiratory Exam Location: Left: wheezes and decreased breath sounds, Right: wheezes and decreased breath sounds, Upper: wheezes and decreased breath sounds and Lower: wheezes and decreased breath sounds Cardiovascular Cardiovascular exam: Present normal rhythm and tachycardia Abdominal Exam Abdominal exam: Present soft; Absent distention, tenderness, guarding, rebound or rigidity Neurological Exam Neurological exam: Present alert, oriented X3 and CN II-XII intact; Absent motor sensory deficit Psychiatric Psychiatric exam: Present normal affect and normal mood Skin Skin exam: Present warm and dry Medical Decision Making Medical Records Medical records reviewed: Yes I reviewed the patient's medical records. Abdias Inquiry Pt receiving controlled substance: No Abdias was queried for this patient: No Vital Signs: 05/22/23 10:04 05/22/23 10:40 05/22/23 10:40 Temperature 97.5 F L Temperature Source Oral Pulse Rate 116 H 132 H Pulse Rate [Apical] 142 H Respiratory Rate 30 H Blood Pressure Blood Pressure [Right Arm] 118/84 Blood Pressure Mean Blood Pressure Mean [Right Arm] 95 02 Sat by Pulse Oximetry 98 Oxygen Delivery Method Aerosol Mask Oxygen Flow Rate (LPM) 12 05/22/23 10:41 05/22/23 11:00 05/22/23 11:50 Temperature Temperature Source Pulse Rate 69 121 H Pulse Rate [Apical] Respiratory Rate 34 H Blood Pressure 87/57 L 115/52 L Blood Pressure [Right Arm] Blood Pressure Mean Blood Pressure Mean [Right Arm] 02 Sat by Pulse Oximetry 97 100 98 Oxygen Delivery Method BiPAP BiPAP Oxygen Flow Rate (LPM) 05/22/23 12:46 05/22/23 13:08 05/22/23 13:25 Temperature Temperature Source Pulse Rate 127 H 118 H 114 H Pulse Rate [Apical] Respiratory Rate 24 Blood Pressure 119/87 73/46 L 72/39 L Blood Pressure [Right Arm] Blood Pressure Mean Blood Pressure Mean [Right Arm] 02 Sat by Pulse Oximetry 96 98 98 Oxygen Delivery Method BiPAP BiPAP Oxygen Flow Rate (LPM) 05/22/23 13:40 05/22/23 13:50 05/22/23 13:55 Temperature Temperature Source Pulse Rate 118 H 118 H 109 H Pulse Rate [Apical] Respiratory Rate 22 19 15 Blood Pressure 81/64 L 81/49 L 88/59 L Blood Pressure [Right Arm] Blood Pressure Mean Blood Pressure Mean [Right Arm] 02 Sat by Pulse Oximetry 96 98 98 Oxygen Delivery Method Oxygen Flow Rate (LPM) 05/22/23 14:16 05/22/23 14:20 Temperature Temperature Source Pulse Rate 103 H 106 H Pulse Rate [Apical] Respiratory Rate 21 19 Blood Pressure 99/65 L 102/61 L Blood Pressure [Right Arm] Blood Pressure Mean 73 Blood Pressure Mean [Right Arm] 02 Sat by Pulse Oximetry 98 93 L Oxygen Delivery Method BiPAP BiPAP Oxygen Flow Rate (LPM) Lab Data Lab Results 05/22/23 10:05: VBG pH 7.19 L, VBG pCO2 89.1 H, VBG pO2 78.6 H, VBG HCO3 33.6 H, VBG Total CO2 36.3 H, VBG O2 Saturation 94.4 H, VBG Base Excess 5.4 H 05/22/23 10:12: WBC 8.8, RBC 4.55 L, Hgb 15.3, Hct 48.2, MCV 106.0 H, MCH 33.7 H, MCHC 31.8, RDW 14.7, Plt Count 240, MPV 7.8, Neut % (Auto) 77.2, Lymph % (Auto) 15.2, [place] % (Auto) 6.9, Eos % (Auto) 0.3, Baso % (Auto) 0.5, Neut # (Auto) 6.8, Lymph # (Auto) 1.3, [place] # (Auto) 0.6, Eos # (Auto) 0.0, Baso # (Auto) 0.0, Sodium 135 L, Potassium 4.2, Chloride 91 L, Carbon Dioxide 40 H, Anion Gap 8.2, BUN 13, Creatinine 1.20, Estimated Creat Clear 56, Estimated GFR 60, Est GFR ( Amer) 73, Glucose 123 H, Calcium 9.0, Magnesium 2.0, Total Bilirubin 0.8, AST 37, ALT 26, Alkaline Phosphatase 116, Troponin I 0.01, NT-Pro-B Natriuret Pep 648 H, Total Protein 7.3, Albumin 4.1, Globulin 3.2, Albumin/Globulin Ratio 1.3 05/22/23 10:13: SARS-CoV-2 (PCR) Not detected, Influenza A Untype (PCR) Not detected, Influenza Type B (PCR) Not detected 05/22/23 12:03: VBG pH 7.18 L, VBG pCO2 81.9 H, VBG pO2 36.9, VBG HCO3 29.7, VBG Total CO2 32.2 H, VBG O2 Saturation 65.2, VBG Base Excess 1.3 05/22/23 12:44: Lactate 4.6 H, Troponin I 0.03 05/22/23 10:12 05/22/23 10:12 Orders (Tests/Meds): ED MEDICATIONS Generic Name Dose Route Start Last Admin Trade Name Patrick PRN Reason Stop Dose Admin Norepinephrine/Dextrose 8 mg in 250 mls @ 3.75 mls/hr 05/22/23 13:30 05/22/23 14:19 Norepinephrine 8mg/250ml-D5w Premix IV 06/21/23 13:29 6 mcg/min .Q24H [facility] 11.25 mls/hr Infusion Protocol 2 MCG/MIN Piperacillin Sod/Tazobactam 50 mls @ 100 mls/hr 05/22/23 13:30 05/22/23 13:38 Sod 3.375 gm/ Sodium Chloride IV 06/01/23 13:29 100 mls/hr Q8H [facility] Administration Vancomycin/PEG/NADA/Lysine/Water 1.25 gm in 250 mls @ 125 mls/hr 05/22/23 14:00 05/22/23 14:11 Vancomycin 1.25gm/250ml (Peg) Premix IV 06/01/23 13:59 125 mls/hr Q18H [facility] Administration Sodium Chloride 10 ml 05/22/23 10:38 Sodium Chloride 0.9% 10ml Vial IV 06/21/23 10:37 NEEDED PRN to Dilute Lorazepam inj Discontinued Medications Generic Name Dose Route Start Last Admin Trade Name Patrick PRN Reason Stop Dose Admin Albuterol/Ipratropium 9 ml 05/22/23 10:07 05/22/23 10:39 Ipratropium/Albuterol 3 Ml Neb IH 05/22/23 10:08 9 ml ONCE ONE Administration Furosemide 40 mg 05/22/23 11:43 05/22/23 14:36 Furosemide 40mg/4ml Vial IV 05/22/23 11:44 Not Given ONCE ONE Magnesium Sulfate 2 gm in 50 mls @ 50 mls/hr 05/22/23 10:05 05/22/23 10:16 Magnesium Sulfate 2gm/50ml Premix IV 05/22/23 11:04 50 mls/hr ONCE ONE Administration Lorazepam 1 mg 05/22/23 10:38 05/22/23 10:44 Lorazepam 2mg/Ml Vial IV 05/22/23 10:39 1 mg ONCE ONE Administration Miscellaneous 1 each 05/22/23 13:30 Vancomycin Consult Request NOTAPPLIC 06/21/23 13:29 CONSULT PHARMACY [facility] ORDERS Category Date Time Status Cardiology Consult [Consult to Cardiology] [CONS] Cons 05/22/23 12:55 Active Routine Consult to Pulmonology [CONS] Routine Cons 05/22/23 12:53 Active CXR --portable [XR chest portable] Stat Exams 05/22/23 10:05 Completed BNP [Brain Natriuretic Peptide] Stat Lab 05/22/23 10:12 Completed CBC w/Auto Diff [Complete Blood Count Auto Diff] Stat Lab 05/22/23 10:12 Completed CMP [Comprehensive Metabolic Panel] Stat Lab 05/22/23 10:12 Completed Lactate Venous Stat Lab 05/22/23 12:13 Ordered Lactic Acid Stat Lab 05/22/23 12:44 Completed MAG [Magnesium] Stat Lab 05/22/23 10:12 Completed Rapid PCR Covid and Flu A/B Stat Lab 05/22/23 10:13 Completed Trop I [Troponin I] Stat Lab 05/22/23 10:12 Completed Troponin I Q3H Lab 05/22/23 12:44 Completed Troponin I Q3H Lab 05/22/23 16:15 Ordered Blood Culture Stat Micro 05/22/23 10:15 Received VBG [Venous Blood Gas] Stat RT 05/22/23 10:05 Completed VBG [Venous Blood Gas] Stat RT 05/22/23 12:03 Completed ECG initial [place] Stat Y 05/22/23 10:05 Completed ECG Data Tracing #1: I reviewed this ECG and interpreted as documented below: EKG personally interpreted by me. Sinus tachycardia with a rate of [address] elevations are noted. HEART Score History (anamnesis): Slightly suspicious ECG: Normal Age: >65 years Risk factors: Atherosclerosis history Troponin: </= normal limit HEART Score: 4 Medical Decision Narrative: 67-year-old male with past medical history significant for COPD on 4 L of oxygen at home, DM2, HTN, CAD, HLD, heart failure, presents today for evaluation concerning shortness of breath that is worsened over the past couple of days. EMS reports that patient's oxygen saturation was in the 80s on room air. EMS gave 2 DuoNeb's and 125 Solu-Medrol en route to ED. Attempted CPAP however patient cannot tolerate. Has not had any fevers or chills. Does report change in sputum color over the past couple days noting from clear to yellow. On assessment, the patient was in respiratory distress, tachypneic, accessory muscle usage. Decreased breath sounds throughout with diffuse expiratory wheezing. No lower extremity edema noted. Abdomen soft nondistended and nontender. Otherwise exam findings unremarkable. Differential diagnoses include but not limited to COPD exacerbation, CHF exacerbation, ACS, pneumonia, pleural effusion, COVID, influenza, among others. No elevation in white count at 8.8. CMP nonactionable. Lactate of 4.6. Initial VBG with pH of 7.19. pCO2 of 89.1. Bicarb of 33.6. BNP of 648 initial troponin 0.01, second troponin 0.03. EKG did not show any ST elevations to suggest ischemia. Negative COVID and influenza swabs. Patient was given 3 DuoNeb treatments and 2 g of IV magnesium while in the ED. He was also placed on BiPAP to assist with his work of breathing and CO2 retention. Repeat VBG showed a pH of 7.18, pCO2 of 81.9, bicarb of 29.7. On reassessment his work of breathing was improved with BiPAP however he was noted to have multiple hypotensive readings. I did order for broad-spectrum IV antibiotics at this time and also placed patient on norepinephrine for blood pressure support. I did consult with hospital medicine in regards to the patient and discussed management and hospital medicine accepted admission. This plan was discussed with patient who verbalized understanding and agreement. Critical Care Critical Care Time Critical Care Time: Yes Attestation: On 05/22/23, the high probability of a clinically significant, sudden or life threatening deterioration of the following system(s) required my full and direct attention, intervention and personal management. The time I documented below is in addition to time spent performing reported procedures but includes the following listed in this critical care notation. Total Time Total Critical Care Time: 35
[2023-05-22] MEDS: MAGNESIUM SULFATE IN WATER 2 GM/50 ML PIGGYBACK IV (10:16)
--- NOTE | 2023-05-22 10:16 | PC.NURSE ---
RAD at for CXR
--- NOTE | 2023-05-22 10:16 | PC.NURSE ---
XR AT BEDSIDE
[2023-05-22 10:22] LABS: Basophils % 0.5 % (0.1-2.0); Eosinophils % 0.3 % (0.1-12.0); Hematocrit 48.2 % (42.0-52.0); Hemoglobin 15.3 g/dL (14.1-18.0); Lymphocytes # 1.3 K/mm3 (0.7-4.5); Lymphocytes % 15.2 % (10-50); Mean Corpuscular HGB Conc 31.8 g/dL (31.8-35.4); Mean Corpuscular Hemoglobin 33.7 pg (27.0-31.2); Mean Platelet Volume 7.8 fl (7.4-10.4); Monocytes # 0.6 K/mm3 (0.1-1.0); Monocytes % 6.9 % (1.7-9.3); Neutrophils # 6.8 K/mm3 (1.8-7.8); Neutrophils % 77.2 % (37.0-80.0); Platelet Count 240 K/mm3 (142-424); Red Blood Count 4.55 M/mm3 (4.60-6.20); Red Cell Distribution Width 14.7 % (11.5-17.5); White Blood Count 8.8 K/mm3 (4.8-10.8)
[2023-05-22 10:24] LABS: VBG Base Excess 5.4 mmol/L (-2.4-2.3); VBG HCO3 33.6 mmol/L (23-30); VBG Oxygen Saturation 94.4 % (50-70); VBG PCO2 89.1 mmol/L (35-51); VBG PO2 78.6 mmol/L (28-40); VBG Total CO2 36.3 mmol/L (23-27)
[2023-05-22 10:26] LABS: VBG PH 7.19 mmol/L (7.31-7.41)
--- NOTE | 2023-05-22 10:30 | PC.NURSE ---
DR GONZALEZ AT BEDSIDE TO DISCUSS BI-PAP WITH PT
[2023-05-22 10:31] LABS: Chloride 91 mmol/L (98-107); Sodium 135 mmol/L (136-145)
[2023-05-22 10:34] LABS: Alanine Aminotransferase 26 U/L (12-78); Albumin Level 4.1 g/dl (3.5-5.0); Albumin/Globulin Ratio 1.3 (1.1-1.8); Alkaline Phosphatase 116 U/L (38-126); Aspartate Amino Transferase 37 U/L (17-59); Bilirubin,Total 0.8 mg/dl (0.2-1.3); Blood Urea Nitrogen 13 mg/dl (9-20); Creatinine Clearance Estimated 56 mL/min (50-200); Estimated Glomerular Filt Rate 60 ml/min (>60); GFR (African American) 73 ML/MIN (>60); Globulin 3.2 g/dL (1.3-3.2); Glucose 123 mg/dl (74-100); Potassium 4.2 mmoL/L (3.5-5.1); Total Protein,Serum 7.3 g/dl (6.3-8.2)
[2023-05-22] MEDS: IPRATROPIUM/ALBUTEROL 3 ML NEB 9 ML IH (10:39)
[2023-05-22 10:41] LABS: Anion Gap 8.2 mEq/L (5-15); Carbon Dioxide 40 mmol/L (22.0-30.0)
[2023-05-22] MEDS: LORazepam 2MG/ML VIAL 1 MG IV (10:44)
[2023-05-22 10:48] LABS: Troponin I 0.01 ng/ml (0.00-0.034)
[2023-05-22 11:15] LABS: NT Pro Brain Natriuretic Pep. 648 pg/mL (0-125)
[2023-05-22 12:00] LABS: Coronavirus 19, PCR Not Detected (NotDetected); Influenza A, PCR Not Detected (NotDetected); Influenza B, PCR Not Detected (NotDetected)
[2023-05-22 12:36] LABS: VBG Base Excess 1.3 mmol/L (-2.4-2.3); VBG HCO3 29.7 mmol/L (23-30); VBG Oxygen Saturation 65.2 % (50-70); VBG PCO2 81.9 mmol/L (35-51); VBG PO2 36.9 mmol/L (28-40); VBG Total CO2 32.2 mmol/L (23-27)
[2023-05-22 12:39] LABS: VBG PH 7.18 mmol/L (7.31-7.41)
--- NOTE | 2023-05-22 12:39 | PC.NURSE ---
Anna from Respiratory call VBG results on patient, pH7.17 , CO2 81, PO236
--- NOTE | 2023-05-22 12:45 | PC.NURSE ---
Lactic and second trop collected and sent to lab
--- NOTE | 2023-05-22 12:52 | PC.NURSE ---
DR GONZALEZ SPEAKING WITH DR PAULINO FOR ADMISSION
--- NOTE | 2023-05-22 12:52 | PC.NURSE ---
RESPIRATORY AT BEDSIDE TO ADJUST BI-PAP
--- NOTE | 2023-05-22 12:56 | PC.NURSE ---
CASE MANAGEMENT NOTIFIED OF ADMISSION
[2023-05-22 13:18] LABS: Troponin I 0.03 ng/ml (0.00-0.034)
[2023-05-22 13:19] LABS: Lactic Acid 4.6 mmol/L (0.7-2.1)
--- NOTE | 2023-05-22 13:21 | PC.NURSE ---
Dr. Oneill at bedside.
[2023-05-22] MEDS: NOREPINEPHRINE BITARTRATE/D5W 8 MG/250 ML PLAST..BAG 3.75 MG IV (13:35)
[2023-05-22] MEDS: PIPERCILLIN/TAZO 3.375 GM in 0.9 % SODIUM CHLORIDE 50 ML IV (13:38)
--- NOTE | 2023-05-22 13:42 | P.CONPHA_ITS ---
Pharmacy Consult Date: 05/22/23 Time: 13:42 Referring provider: DR. GONZALEZ Reason for Consult:: VANCOMYCIN DOSING Allergies Allergy/AdvReac Type Severity Reaction Status Date / Time erythromycin base Allergy Unknown NA-NAUSEA/V Verified 11/19/18 11:23 [ERYTHROMYCIN BASE] OMITING Home Medications Medication Instructions Recorded Confirmed Type albuterol sulfate 90 mcg/actuation 1 - 2 puffs IH Q4HP PRN Shortness 03/24/20 04/06/23 History aerosol inhaler Of Breath Or Wheezing amlodipine 10 mg tablet 10 mg PO DAILY 03/24/20 04/06/23 History escitalopram oxalate 20 mg tablet 20 mg PO DAILY 03/24/20 04/06/23 History pantoprazole 40 mg tablet,delayed 40 mg PO DAILY 08/12/22 04/06/23 History release ipratropium 20 mcg-albuterol 100 1 puff inhalation QID 04/06/23 04/06/23 History mcg/actuation mist for inhalation (Combivent Respimat) lisinopril 20 1 tab PO DAILY 04/07/23 04/07/23 History mg-hydrochlorothiazide 12.5 mg tablet bisoprolol fumarate 5 mg tablet 5 mg PO BID 30 days #60 tabs 04/11/23 Rx fluticasone fur. 100 mcg-umeclid 1 inh inhalation DAILY 30 days #60 04/11/23 Rx 62.5 mcg-vilant 25 mcg ea inhalat.powder (Trelegy Ellipta) nicotine 21 mg/24 hr daily 21 mg transdermal DAILY 30 days 04/11/23 Rx transdermal patch #28 ea prednisone 20 mg tablet 40 mg PO DAILY 4 days #8 tabs 04/11/23 Rx levofloxacin 750 mg tablet 750 mg PO 1100 2 days #2 tabs 04/12/23 Rx aspirin 81 mg tablet,delayed See Rx Instructions .Route 05/17/23 Rx release .COMPLEX #90 tabs atorvastatin 40 mg tablet See Rx Instructions .Route 05/17/23 Rx .COMPLEX #30 tabs furosemide 40 mg tablet See Rx Instructions .Route 05/17/23 Rx .COMPLEX #30 tabs New Prescriptions to Start Prescriptions: Height: 1.78 m Weight: 65.771 kg Laboratory Results:: Laboratory Results - last 24 hr 05/22/23 10:05: VBG pH 7.19 L, VBG pCO2 89.1 H, VBG pO2 78.6 H, VBG HCO3 33.6 H, VBG Total CO2 36.3 H, VBG O2 Saturation 94.4 H, VBG Base Excess 5.4 H 05/22/23 10:12: WBC 8.8, RBC 4.55 L, Hgb 15.3, Hct 48.2, MCV 106.0 H, MCH 33.7 H , MCHC 31.8, RDW 14.7, Plt Count 240, MPV 7.8, Neut % (Auto) 77.2, Lymph % (Auto) 15.2, [place] % (Auto) 6.9, Eos % (Auto) 0.3, Baso % (Auto) 0.5, Neut # (Auto) 6.8, Lymph # (Auto) 1.3, [place] # (Auto) 0.6, Eos # (Auto) 0.0, Baso # (Auto) 0.0, Sodium 135 L, Potassium 4.2, Chloride 91 L, Carbon Dioxide 40 H, Anion Gap 8.2, BUN 13, Creatinine 1.20, Estimated Creat Clear 56, Estimated GFR 60, Est GFR ( Amer) 73, Glucose 123 H, Calcium 9.0, Magnesium 2.0, Total Bilirubin 0.8, AST 37, ALT 26, Alkaline Phosphatase 116, Troponin I 0.01, NT-Pro-B Natriuret Pep 648 H, Total Protein 7.3, Albumin 4.1, Globulin 3.2, Albumin/Globulin Ratio 1.3 05/22/23 10:13: SARS-CoV-2 (PCR) Not detected, Influenza A Untype (PCR) Not detected, Influenza Type B (PCR) Not detected 05/22/23 12:03: VBG pH 7.18 L, VBG pCO2 81.9 H, VBG pO2 36.9, VBG HCO3 29.7, VBG Total CO2 32.2 H, VBG O2 Saturation 65.2, VBG Base Excess 1.3 05/22/23 12:44: Lactate 4.6 H, Troponin I 0.03 Medical History: Medical History (Updated 04/16/23 @ 00:01 by Background Bishop) Alcohol use disorder, severe, in early remission Atypical angina CAD in [place] artery CAP (community acquired pneumonia) COPD (chronic obstructive pulmonary disease) Coronary artery calcification seen on CAT scan Cough Hilar lymphadenopathy Hyperlipidemia Hypertension Nodule of right lung Obesity (BMI 30-39.9) Pneumonia Shortness of Breath Tobacco dependence Assessment and Plan Assessment and plan all Dx Assessment and Plan for all problems:: Pharmacokinetic dosing service Objective: Patient: Floor: Age: 67 yo Serum creatinine: 1.2 mg/dL Height: 70.0 Inches Weight (kg): 65.77 Assessment: IBW (kg): 73.00 Dosing wt(kg): 65.77 Estimated Creatinine clearance (ml/min): 55.6 CRCL method: Cockcroft and Gault using ibw(default). Drug selected: Vancomycin Loading dose (mg): 0 Vd (liters): 55.9 (factor used: 0.85 L/kg) Keith (hr-1): 0.051 Half life (hrs): 13.59 Recommended dose: 1250 mg Interval: 18 hrs Infusion time (hrs): 2.0 Predicted peak (mcg/mL): 35.4 Predicted trough (mcg/mL): 15.65 Total body weight is being used for vancomycin dosing. Recommendations: Give Vancomycin 1250 mg q 18 hrs with an expected Cpeak of 35.4 mcg/ml and an expected Ctrough of 15.65 mcg/ml ----Vanco only - ignore for aminoglycosides----- CLvanco= 2.85 L/hr AUC 0-24 /ALEXEY Data: ALEXEY 0.5 mcg/mL: AUC/ALEXEY: 1169.6 ALEXEY 1.0 mcg/mL: AUC/ALEXEY: 584.8 --------- ALEXEY 1.5 mcg/mL: AUC/ALEXEY: 389.9 ALEXEY 2.0 mcg/mL: AUC/ALEXEY: 292.4
--- NOTE | 2023-05-22 13:49 | PC.NURSE ---
Lasix not given d/t low BP
--- NOTE | 2023-05-22 14:04 | PC.NURSE ---
Report called to Lora Lundberg RN at this time
[2023-05-22] MEDS: VANCOMYCIN/WATER FOR INJ (PEG) 1.25 GM/250 ML PIGGYBACK IV (14:11)
--- NOTE | 2023-05-22 14:14 | HMH.PHAINT1 ---
Pharmacy Intervention Comments: MEDICATION RECONCILIATION COMPLETED ON PATIENT USING EXTERNAL FILL HISTORY FROM PHARMACY AND LIST FROM CARDIOLOGY OFFICE. -LUISITO LANGE, ESAD
--- NOTE | 2023-05-22 14:38 | PC.NURSE ---
arrived by stretcher from ED
--- NOTE | 2023-05-22 15:02 | CT_ITS ---
PROCEDURE INFORMATION: Exam: CTA Chest With Contrast Exam date and time: 05/22/2023 5:48 PM Age: 67 years old Clinical indication: Other: Hypoxia; Additional info: Lung mass follow up, hypoxia, R/O pe TECHNIQUE: Imaging protocol: Computed tomographic angiography of the chest with contrast. Exam focused on the arteries. 3D rendering (Not supervised by radiologist): MIP and/or 3D reconstructed images were created by the technologist. Radiation optimization: All CT scans at this facility use at least one of these dose optimization techniques: automated exposure control; mA and/or kV adjustment per patient size (includes targeted exams where dose is matched to clinical indication); or iterative reconstruction. Contrast material: ISOVUE; Contrast volume: 70 ml; Contrast route: INTRAVENOUS (IV); COMPARISON: CT ANGIO CHEST PE PROTOCOL 04/06/2023 4:26 PM FINDINGS: Pulmonary arteries: Non occluding thrombi are present in a few segmental pulmonary arteries of the right lower lobe and left lower lobe. Thrombus burden is light. The main pulmonary artery measures 2.8 cm in diameter. Aorta: Ectasia of the ascending aorta measures 4.1 cm and is unchanged since 11/06/2020. Lungs: Right lower lobe peripheral airspace opacities on 04/06/2023 have resolved. Atelectasis or scarring in the middle lobe is unchanged. No other airspace consolidation or nodules. Severe centrilobular emphysema affects the lower lobes more than the upper lobes. Pleural spaces: No pneumothorax. No pleural effusion. Heart: Interventricular septum is not inverted. No cardiomegaly. No pericardial effusion. Heart RV/LV ratio: 1.0 Coronary arteries: Moderate number of coronary artery calcifications. Lymph nodes: No enlarged lymph nodes. Bones/joints: No acute fracture. Soft tissues: No soft tissue masses. IMPRESSION: 1. Non occluding pulmonary emboli in the 2 segmental arteries of the right lower lobe and left lower lobe. Thrombus burden is light. No evidence of right heart strain. 2. Previous right lower lobe consolidation has resolved. 3. Severe centrilobular emphysema affects the lower lobes more than the upper lobes. Consider alpha-1 antitrypsin deficiency. 4. Moderate coronary artery disease. COMMENTS: The presence of pulmonary emphysema on CT is an independent risk factor for lung cancer. In the absence of a history or active diagnosis of lung cancer, it is recommended that this patient with emphysema be evaluated for enrollment in a low dose CT lung cancer screening program.
--- NOTE | 2023-05-22 15:04 | P.CONCA_ITS ---
History of Present Illness History of Present Illness Consult date: 05/22/23 Requesting physician: Hernan Tam Consult reason: congestive heart failure Chief complaint: SOA History of present illness: 67-year-old white male with history of COPD on 4 L/min at home, diabetes, hypertension, nonobstructive CAD, hyperlipidemia. Patient was seen by our service here in April with admission for shortness of breath and hypoxia. He underwent left heart cath which showed nonobstructive multivessel disease with normal EF. 2D echo at that time also showed normal EF with mild RV dilation. He has a history of SVT well-managed on bisoprolol. States approximately 1 week ago his velasquez's son who had a cold was in his home. He has been feeling worse since that time and developed productive cough with yellow sputum. Called EMS for shortness of breath and they administered 2 nebulizer treatments and Solu- Medrol 125mg en route with some symptomatic improvement. On arrival to ER he had white blood cell count of 8k, O2 in 80s, lactic 4.6, pCO2 89, proBNP 648, first troponin 0.01, 0.03. He was put on norepinephrine for hypotension. Chest x-ray shows no edema. Of note he had a CT of his chest here in April which showed right lower lobe masslike opacity and several worsening nodules with 6-12-week follow-up scan recommended. EKG appears to show sinus tach, 120s, but heavy artifact. Heart rate since arrival 1-teens to 120s. [facility] Disclaimer: The information contained in this section may have been updated after the patient was seen, as this information can be updated by other users. Medical History Alcohol use disorder, severe, in early remission Atypical angina CAD in [place] artery CAP (community acquired pneumonia) COPD (chronic obstructive pulmonary disease) Coronary artery calcification seen on CAT scan Cough Hilar lymphadenopathy Hyperlipidemia Hypertension Nodule of right lung Obesity (BMI 30-39.9) Pneumonia Shortness of Breath Tobacco dependence Surgical History History of colonoscopy Family History Mother Lung cancer Father COPD (chronic obstructive pulmonary disease) Social History Smoking Status: Current every day smoker tobacco type: cigarettes packs per day: 2 second hand exposure: No alcohol intake: current current occupational status: disabled Travel in the last 8 weeks: None household members: significant other caffeine: No Review of Systems Constitutional Constitutional: Reports fatigue and Reports weakness Eyes Eyes: Denies loss of vision ENT Ears, Nose, Mouth, and Throat: Denies hearing loss and Denies vertigo *Cardiovascular Cardiovascular: Denies chest pain, Reports dyspnea, Reports dyspnea on exertion and Denies syncope *Respiratory Respiratory: Reports change in phlegm color, Reports chest congestion, Reports cough, Reports dyspnea, Reports dyspnea on exertion, Reports excessive phlegm production and Reports wheezing *Gastrointestinal Gastrointestinal: Denies change in stool character, Denies nausea and Denies vomiting *Genitourinary Genitourinary: Denies difficulty urinating *Musculoskeletal Musculoskeletal: Denies muscle weakness Integumentary/Breasts Skin/Breast: Denies changing lesions *Neurologic Neurologic: Denies loss of vision, Denies syncope, Denies vertigo and Reports weakness Endocrine Endocrine: Reports fatigue Allergic/Immunologic Allergic/Immunologic: Reports wheezing Exam Data for Last 24 hours Vital signs and Labs for Last 24 Hours: Temp Pulse Resp BP Pulse Ox O2 Del Method O2 Flow Rate 97.5 F L 107 H 20 102/64 L 95 BiPAP 12 05/22/23 14:53 05/22/23 14:53 05/22/23 14:53 05/22/23 14:53 05/22/23 14:53 05/22/23 14:53 05/22/23 10:04 FiO2 30 05/22/23 10:41 Laboratory Results - last 24 hr 05/22/23 10:05: VBG pH 7.19 L, VBG pCO2 89.1 H, VBG pO2 78.6 H, VBG HCO3 33.6 H, VBG Total CO2 36.3 H, VBG O2 Saturation 94.4 H, VBG Base Excess 5.4 H 05/22/23 10:12: WBC 8.8, RBC 4.55 L, Hgb 15.3, Hct 48.2, MCV 106.0 H, MCH 33.7 H , MCHC 31.8, RDW 14.7, Plt Count 240, MPV 7.8, Neut % (Auto) 77.2, Lymph % (Auto) 15.2, [place] % (Auto) 6.9, Eos % (Auto) 0.3, Baso % (Auto) 0.5, Neut # (Auto) 6.8, Lymph # (Auto) 1.3, [place] # (Auto) 0.6, Eos # (Auto) 0.0, Baso # (Auto) 0.0, Sodium 135 L, Potassium 4.2, Chloride 91 L, Carbon Dioxide 40 H, Anion Gap 8.2, BUN 13, Creatinine 1.20, Estimated Creat Clear 56, Estimated GFR 60, Est GFR ( Amer) 73, Glucose 123 H, Calcium 9.0, Magnesium 2.0, Total Bilirubin 0.8, AST 37, ALT 26, Alkaline Phosphatase 116, Troponin I 0.01, NT-Pro-B Natriuret Pep 648 H, Total Protein 7.3, Albumin 4.1, Globulin 3.2, Albumin/Globulin Ratio 1.3 05/22/23 10:13: SARS-CoV-2 (PCR) Not detected, Influenza A Untype (PCR) Not d etected, Influenza Type B (PCR) Not detected 05/22/23 12:03: VBG pH 7.18 L, VBG pCO2 81.9 H, VBG pO2 36.9, VBG HCO3 29.7, VBG Total CO2 32.2 H, VBG O2 Saturation 65.2, VBG Base Excess 1.3 05/22/23 12:44: Lactate 4.6 H, Troponin I 0.03 I & O for Last 24 hours: Intake & Output 05/19/23 05/20/23 05/21/23 05/22/23 23:59 23:59 23:59 23:59 Intake Total 7.500 / 7.500 Balance 7.500 / 7.500 Weight 203 lb Constitutional Constitutional: no acute distress and cooperative *Routine HEENT Exam Eye: Present PERRL *Routine Respiratory Exam Respiratory: Present accessory muscle use, CTA bilaterally and wheezes; Absent crackles Comments: Severe diffuse wheezing throughout *Routine Cardiovascular Exam Cardiovascular: Present RRR, Normal S1 and Normal S2; Absent murmur, gallop or rubs *Routine Abdominal Exam Abdominal: Present soft; Absent tenderness *Routine Extremities Exam Extremities: Present pulses intact; Absent cyanosis or edema *Routine Skin Exam Skin: Present intact; Absent erythema or wounds *Routine Neurological Exam Neurological: Present alert and oriented X3 Routine Psychiatric Exam Psychiatric: Present cooperative Meds Home Medications and Allergies Home Medications Medication Instructions Recorded Confirmed Type albuterol sulfate 90 mcg/actuation 2 puffs IH Q4HP PRN Shortness Of 03/24/20 05/22/23 History aerosol inhaler Breath Or Wheezing amlodipine 10 mg tablet 10 mg PO DAILY High Blood Pressure 03/24/20 05/22/23 History escitalopram oxalate 20 mg tablet 20 mg PO DAILY Mood 03/24/20 05/22/23 History pantoprazole 40 mg tablet,delayed 40 mg PO DAILY Acid Reflux 08/12/22 05/22/23 History release ipratropium 20 mcg-albuterol 100 1 puff inhalation QID Breathing 04/06/23 05/22/23 History mcg/actuation mist for inhalation Problems (Combivent Respimat) lisinopril 20 1 tab PO DAILY High Blood Pressure 04/07/23 05/22/23 History mg-hydrochlorothiazide 12.5 mg tablet aspirin 81 mg tablet,delayed 81 mg PO DAILY Heart Health 05/22/23 05/22/23 History release atorvastatin 40 mg tablet 40 mg PO HS Cholesterol 05/22/23 05/22/23 History bisoprolol fumarate 5 mg tablet 5 mg PO DAILY High Blood Pressure 05/22/23 05/22/23 History fluticasone fur. 100 mcg-umeclid 1 inh inhalation DAILY Breathing 05/22/23 05/22/23 History 62.5 mcg-vilant 25 mcg Problems inhalat.powder (Trelegy Ellipta) folic acid 1 mg tablet 1 mg PO DAILY Supplement 05/22/23 05/22/23 History furosemide 40 mg tablet 40 mg PO DAILY Fluid 05/22/23 05/22/23 History nicotine 21 mg/24 hr daily 21 mg transdermal DAILY Smoking 05/22/23 05/22/23 History transdermal patch Cessation New Prescriptions to Start Prescriptions: Allergies Allergy/AdvReac Type Severity Reaction Status Date / Time erythromycin base Allergy Unknown NA-NAUSEA/V Verified 11/19/18 11:23 [ERYTHROMYCIN BASE] OMITING Assessment and Plan *Assessment and plan (1) Acute on chronic hypoxic respiratory failure: Status: Acute Category: Medical Code(s): J96.21 - Acute and chronic respiratory failure with hypoxia (2) Nonobstructive atherosclerosis of coronary artery: Status: Acute Category: Medical Code(s): I25.10 - Atherosclerotic heart disease of [place] coronary artery without angina pectoris (3) SVT (supraventricular tachycardia): Status: Acute Category: Medical Code(s): I47.10 - Supraventricular tachycardia, unspecified (4) Lung mass: Status: Acute Category: Medical Code(s): R91.8 - Other nonspecific abnormal finding of lung field Plan Acute on chronic hypoxic respiratory failure -Patient had nonobstructive CAD on heart cath and only mild RV dilation on 2D echo here in April - unlikely CHF event -He has O2 4 L/min at baseline and has URI symptoms and productive cough with yellow sputum-likely COPD exacerbation -CT chest here in April revealed right lower lobe masslike opacity and several enlarging nodules, he is due for repeat scan. Will check CTA Sinus tachycardia -Chart notes history of SVT treated with bisoprolol -EKG here is narrow complex 120s, heavy artifact in setting of acute hypoxia and hypotension, will repeat EKG -CT chest PE protocol pending Hypotension with lactic acidosis -On supplemental O2 and Levophed Nonobstructive CAD -For left heart cath 04/2023 -Continue aspirin and CV risk factor modification
--- NOTE | 2023-05-22 15:10 | HMH.ITSTN ---
spoke to nurse. pt just put on bi-pap; nurse will call when pt is more stable
--- NOTE | 2023-05-22 15:18 | P.CONS_ITS ---
History of Present Illness History of present illness: Mr. Flores is a 67-year-old male current smoker-30 PPD for COPD, previously seen in the hospital in August 2022 in April 2023 for COPD exacerbation presented to the ER with worsening respiratory distress, found to be in hypoxic hypercarbic respiratory failure needing BiPAP therapy and pulmonary was called for further evaluation and management. [facility] Disclaimer: The information contained in this section may have been updated after the patient was seen, as this information can be updated by other users. Medical History (Updated 05/22/23 @ 15:19 by Bryan Ramirez MD) Acute respiratory failure with hypoxia and hypercarbia Alcohol use disorder, severe, in early remission Atypical angina CAD in [place] artery CAP (community acquired pneumonia) COPD (chronic obstructive pulmonary disease) Coronary artery calcification seen on CAT scan Cough Hilar lymphadenopathy Hyperlipidemia Hypertension Nodule of right lung Obesity (BMI 30-39.9) Pneumonia Shortness of Breath Tobacco dependence Surgical History History of colonoscopy Family History Mother Lung cancer Father COPD (chronic obstructive pulmonary disease) Social History Smoking Status: Current every day smoker tobacco type: cigarettes packs per day: 2 second hand exposure: No alcohol intake: current current occupational status: disabled Travel in the last 8 weeks: None household members: significant other caffeine: No Review of Systems Constitutional Constitutional: Reports fatigue, Reports poor appetite, Reports lethargy and Reports weakness Eyes Eyes: Denies itchy eyes and Denies loss of vision ENT Ears, Nose, Mouth, and Throat: Denies lip swelling, Denies throat swelling and Denies vertigo *Cardiovascular Cardiovascular: Reports dyspnea, Reports dyspnea on exertion and Denies syncope *Respiratory Respiratory: Denies change in phlegm color, Reports chest congestion, Reports cough, Reports dyspnea, Reports dyspnea on exertion, Reports excessive phlegm production and Reports wheezing *Gastrointestinal Gastrointestinal: Denies abdominal pain, Denies belching and Denies cramping *Musculoskeletal Musculoskeletal: Reports back pain, Reports myalgias and Reports other (No small joint swelling or Pain) *Neurologic Neurologic: Denies loss of vision, Denies syncope, Denies vertigo and Reports weakness Psychiatric Psychiatric: Denies homicidal ideation and Denies suicidal ideation Endocrine Endocrine: Reports fatigue and Denies heat intolerance Hematologic/Lymphatic Hematologic/Lymphatic: Denies easy bleeding and Denies lymphadenopathy Allergic/Immunologic Allergic/Immunologic: Denies itchy eyes, Denies lip swelling, Denies throat swelling and Reports wheezing Pulmonology Exam Inpatient Vital signs and Labs for Last 24 Hours: Temp Pulse Resp BP Pulse Ox O2 Del Method O2 Flow Rate 97.5 F L 107 H 20 102/64 L 95 BiPAP 12 05/22/23 14:53 05/22/23 14:53 05/22/23 14:53 05/22/23 14:53 05/22/23 14:53 05/22/23 14:53 05/22/23 10:04 FiO2 30 05/22/23 10:41 Laboratory Results - last 24 hr 05/22/23 10:05: VBG pH 7.19 L, VBG pCO2 89.1 H, VBG pO2 78.6 H, VBG HCO3 33.6 H, VBG Total CO2 36.3 H, VBG O2 Saturation 94.4 H, VBG Base Excess 5.4 H 05/22/23 10:12: WBC 8.8, RBC 4.55 L, Hgb 15.3, Hct 48.2, MCV 106.0 H, MCH 33.7 H , MCHC 31.8, RDW 14.7, Plt Count 240, MPV 7.8, Neut % (Auto) 77.2, Lymph % (Auto) 15.2, [place] % (Auto) 6.9, Eos % (Auto) 0.3, Baso % (Auto) 0.5, Neut # (Auto) 6.8, Lymph # (Auto) 1.3, [place] # (Auto) 0.6, Eos # (Auto) 0.0, Baso # (Auto) 0.0, Sodium 135 L, Potassium 4.2, Chloride 91 L, Carbon Dioxide 40 H, Anion Gap 8.2, BUN 13, Creatinine 1.20, Estimated Creat Clear 56, Estimated GFR 60, Est GFR ( Amer) 73, Glucose 123 H, Calcium 9.0, Magnesium 2.0, Total Bilirubin 0.8, AST 37, ALT 26, Alkaline Phosphatase 116, Troponin I 0.01, NT-Pro-B Natriuret Pep 648 H, Total Protein 7.3, Albumin 4.1, Globulin 3.2, Albumin/Globulin Ratio 1.3 05/22/23 10:13: SARS-CoV-2 (PCR) Not detected, Influenza A Untype (PCR) Not detected, Influenza Type B (PCR) Not detected 05/22/23 12:03: VBG pH 7.18 L, VBG pCO2 81.9 H, VBG pO2 36.9, VBG HCO3 29.7, VBG Total CO2 32.2 H, VBG O2 Saturation 65.2, VBG Base Excess 1.3 05/22/23 12:44: Lactate 4.6 H, Troponin I 0.03 I & O for Labs for Last 24 Hours: Intake & Output 05/19/23 05/20/23 05/21/23 05/22/23 23:59 23:59 23:59 23:59 Intake Total 7.500 / 7.500 Balance 7.500 / 7.500 Weight 203 lb Microbiology Reports for the Last 24 Hours: Microbiology 04/08/23 21:00 Sputum - Expectorated Sputum Gram Stain - Final 04/08/23 21:00 Sputum - Expectorated Sputum Sputum Culture - Preliminary Constitutional: Present mild distress Head: Present normocephalic and atraumatic ENT: Present normal exam, normal oropharynx and mucous membranes moist Neck: Present normal inspection and full ROM Respiratory: Present decreased breath sounds, respiratory distress, wheezes and diminished air movement; Absent able to speak in complete sentences Cardiac: Present S1/S2, Tachycardia and radial pulses present GI: Present soft and distention; Absent tenderness or guarding Skin: Present intact; Absent cyanosis or jaundice Neuro: Present alert and awake Extremities: Present normal inspection; Absent clubbing or cyanosis Psychiatric: Present normal affect and cooperative Meds Home Medications and Allergies Home Medications Medication Instructions Recorded Confirmed Type albuterol sulfate 90 mcg/actuation 2 puffs IH Q4HP PRN Shortness Of 03/24/20 05/22/23 History aerosol inhaler Breath Or Wheezing amlodipine 10 mg tablet 10 mg PO DAILY High Blood Pressure 03/24/20 05/22/23 History escitalopram oxalate 20 mg tablet 20 mg PO DAILY Mood 03/24/20 05/22/23 History pantoprazole 40 mg tablet,delayed 40 mg PO DAILY Acid Reflux 08/12/22 05/22/23 History release ipratropium 20 mcg-albuterol 100 1 puff inhalation QID Breathing 04/06/23 05/22/23 History mcg/actuation mist for inhalation Problems (Combivent Respimat) lisinopril 20 1 tab PO DAILY High Blood Pressure 04/07/23 05/22/23 History mg-hydrochlorothiazide 12.5 mg tablet aspirin 81 mg tablet,delayed 81 mg PO DAILY Heart Health 05/22/23 05/22/23 History release atorvastatin 40 mg tablet 40 mg PO HS Cholesterol 05/22/23 05/22/23 History bisoprolol fumarate 5 mg tablet 5 mg PO DAILY High Blood Pressure 05/22/23 05/22/23 History fluticasone fur. 100 mcg-umeclid 1 inh inhalation DAILY Breathing 05/22/23 05/22/23 History 62.5 mcg-vilant 25 mcg Problems inhalat.powder (Trelegy Ellipta) folic acid 1 mg tablet 1 mg PO DAILY Supplement 05/22/23 05/22/23 History furosemide 40 mg tablet 40 mg PO DAILY Fluid 05/22/23 05/22/23 History nicotine 21 mg/24 hr daily 21 mg transdermal DAILY Smoking 05/22/23 05/22/23 History transdermal patch Cessation New Prescriptions to Start Prescriptions: Allergies Allergy/AdvReac Type Severity Reaction Status Date / Time erythromycin base Allergy Unknown NA-NAUSEA/V Verified 11/19/18 11:23 [ERYTHROMYCIN BASE] OMITING Results Laboratory Findings 05/22/23 10:12 05/22/23 10:12 Abnormal lab findings: Abnormal Labs 05/22/23 05/22/23 05/22/23 10:05 10:12 12:03 RBC 4.55 L MCV 106.0 H MCH 33.7 H VBG pH 7.19 L 7.18 L VBG pCO2 89.1 H 81.9 H VBG pO2 78.6 H VBG HCO3 33.6 H VBG Total CO2 36.3 H 32.2 H VBG O2 Saturation 94.4 H VBG Base Excess 5.4 H Sodium 135 L Chloride 91 L Carbon Dioxide 40 H Glucose 123 H Lactate NT-Pro-B Natriuret Pep 648 H 05/22/23 12:44 RBC MCV MCH VBG pH VBG pCO2 VBG pO2 VBG HCO3 VBG Total CO2 VBG O2 Saturation VBG Base Excess Sodium Chloride Carbon Dioxide Glucose Lactate 4.6 H NT-Pro-B Natriuret Pep Assessment and Plan *Assessment and plan (1) COPD exacerbation: Status: Acute Category: Medical Code(s): J44.1 - Chronic obstructive pulmonary disease with (acute) exacerbation (2) Acute respiratory failure with hypoxia and hypercarbia: Status: Acute Category: Medical Code(s): J96.01 - Acute respiratory failure with hypoxia; J96.02 - Acute respiratory failure with hypercapnia Plan Mr. Flores is a 67-year-old male current smoker-30 PPD for COPD, previously seen in the hospital in August 2022 in April 2023 for COPD exacerbation presented to the ER with worsening respiratory distress, found to be in hypoxic hypercarbic respiratory failure needing BiPAP therapy and pulmonary was called for further evaluation and management. ABG upon admission severe hypercarbic respiratory failure. Chest x-ray stable from prior with no dense consolidation/airspace disease. Afebrile. Hemodynamically stable. No acute evidence of leukocytosis. COVID-19 and flu PCR negative upon admission. Auscultation bilateral diffuse wheezing decreased breath sounds. Plan: Change antibiotics to levofloxacin 750mg daily pending cultures and nasal MRSA PCR DuoNebs every 4 hours along with Pulmicort every 12 scheduled Continue noninvasive ventilator therapy currently on BiPAP at settings 20/10 with a rate of 22 on FiO2 of 30%. Will follow with a VBG. The concerning right lower lobe lesion on his most recent CT on Apr 2023 appeared to be improving on today's chest x-ray, prior to prior, however patient need follow-up CT chest without contrast as an outpatient basis to rule out the possibility of underlying mass/malignancy.
[2023-05-22 15:51] LABS: Lactic Acid 4.9 mmol/L (0.7-2.1)
[2023-05-22 16:03] LABS: VBG Base Excess 1.7 mmol/L (-2.4-2.3); VBG HCO3 29.4 mmol/L (23-30); VBG Oxygen Saturation 60.7 % (50-70); VBG PCO2 73.6 mmol/L (35-51); VBG PH 7.22 mmol/L (7.31-7.41); VBG PO2 33.4 mmol/L (28-40); VBG Total CO2 31.7 mmol/L (23-27)
[2023-05-22] MEDS: LEVOFLOXACIN/D5W 750 MG/150 ML 750 MG/150 ML PIGGYBACK 100 MG IV (16:19)
[2023-05-22] MEDS: METHYLPREDNISOLONE SOD SUCC 40MG VIAL 40 MG IV (16:19)
[2023-05-22] MEDS: HEPARIN SODIUM 5,000 UNIT/ML VIAL 5000 UNIT SQ (16:19)
[2023-05-22] MEDS: NICOTINE 21MG/24HR PATCH 21 MG TD (16:24)
[2023-05-22 16:48] LABS: Reflex Lactic Add Lactic Reflex
[2023-05-22 17:04] LABS: Troponin I 0.03 ng/ml (0.00-0.034)
[2023-05-22] MEDS: IOPAMIDOL-370 (76%);100ML BOTTLE 70 ML IV (17:49)
[2023-05-22] MEDS: 0.9 % SODIUM CHLORIDE 50 ML VIAL IV (17:49)
[2023-05-22] MEDS: SODIUM CHLORIDE 0.9% 10ML SYR (RAD ONLY) 10 ML IV (17:49)
[2023-05-22 17:59] LABS: Lactic Acid Follow Up (RFLX 1) 4.4 mmol/L (0.7-2.1)
--- NOTE | 2023-05-22 18:00 | P.HP_ITS ---
History of Present Illness *Admission Date: 05/22/23 *Reason for visit:: SOB *History of present illness: Patient is a 67-year-old male who presented to hospital due to shortness of breath. Patient has past medical history of CAD CHF, hypertension hyperlipidemia, diabetes mellitus, COPD on 4 L at baseline. According to the patient he has been having shortness of breath for past couple days, it has been getting worse, he was found hypoxic on arrival to the hospital he was a started on BiPAP. Patient otherwise denied fever chills diarrhea constipation dysuria or chest pain. In the emergency department patient was also found to be hypotensive and was a started on Levophed, was found to be hypercapnic respiratory failure was started on BiPAP and was admitted for further management. He endorses productive cough with yellow phlegm production. [facility] Disclaimer: The information contained in this section may have been updated after the patient was seen, as this information can be updated by other users. Medical History (Updated 05/22/23 @ 18:20 by Hernan Tam MD) Acute respiratory failure with hypoxia and hypercarbia Alcohol use disorder, severe, in early remission Atypical angina CAD in [place] artery CAP (community acquired pneumonia) COPD (chronic obstructive pulmonary disease) Coronary artery calcification seen on CAT scan Cough Hilar lymphadenopathy Hyperlipidemia Hypertension Nodule of right lung Obesity (BMI 30-39.9) Pneumonia Shortness of Breath Tobacco dependence Surgical History History of colonoscopy Family History Mother Lung cancer Father COPD (chronic obstructive pulmonary disease) Social History Smoking Status: Current every day smoker tobacco type: cigarettes packs per day: 2 second hand exposure: No alcohol intake: current current occupational status: disabled Travel in the last 8 weeks: None household members: significant other caffeine: No Review of Systems Review of Systems Review of systems (narrative): as per HPI Constitutional Constitutional: Reports weakness Eyes Eyes: Denies loss of vision ENT Ears, Nose, Mouth, and Throat: Denies vertigo *Cardiovascular Cardiovascular: Denies syncope *Neurologic Neurologic: Denies loss of vision, Denies syncope, Denies vertigo and Reports weakness Meds Home Medications and Allergies Home Medications Medication Instructions Recorded Confirmed Type albuterol sulfate 90 mcg/actuation 2 puffs IH Q4HP PRN Shortness Of 03/24/20 05/22/23 History aerosol inhaler Breath Or Wheezing amlodipine 10 mg tablet 10 mg PO DAILY High Blood Pressure 03/24/20 05/22/23 History escitalopram oxalate 20 mg tablet 20 mg PO DAILY Mood 03/24/20 05/22/23 History pantoprazole 40 mg tablet,delayed 40 mg PO DAILY Acid Reflux 08/12/22 05/22/23 History release ipratropium 20 mcg-albuterol 100 1 puff inhalation QID Breathing 04/06/23 05/22/23 History mcg/actuation mist for inhalation Problems (Combivent Respimat) lisinopril 20 1 tab PO DAILY High Blood Pressure 04/07/23 05/22/23 History mg-hydrochlorothiazide 12.5 mg tablet aspirin 81 mg tablet,delayed 81 mg PO DAILY Heart Health 05/22/23 05/22/23 History release atorvastatin 40 mg tablet 40 mg PO HS Cholesterol 05/22/23 05/22/23 History bisoprolol fumarate 5 mg tablet 5 mg PO DAILY High Blood Pressure 05/22/23 05/22/23 History fluticasone fur. 100 mcg-umeclid 1 inh inhalation DAILY Breathing 05/22/23 05/22/23 History 62.5 mcg-vilant 25 mcg Problems inhalat.powder (Trelegy Ellipta) folic acid 1 mg tablet 1 mg PO DAILY Supplement 05/22/23 05/22/23 History furosemide 40 mg tablet 40 mg PO DAILY Fluid 05/22/23 05/22/23 History nicotine 21 mg/24 hr daily 21 mg transdermal DAILY Smoking 05/22/23 05/22/23 His tory transdermal patch Cessation New Prescriptions to Start Prescriptions: Allergies Allergy/AdvReac Type Severity Reaction Status Date / Time erythromycin base Allergy Unknown NA-NAUSEA/V Verified 11/19/18 11:23 [ERYTHROMYCIN BASE] OMITING Exam Data for Last 24 hours Vital signs and Labs for Last 24 Hours: Temp Pulse Resp BP Pulse Ox O2 Del Method O2 Flow Rate 99.9 F H 99 H 22 100/62 L 95 BiPAP 12 05/22/23 16:40 05/22/23 16:00 05/22/23 16:00 05/22/23 16:00 05/22/23 16:00 05/22/23 16:00 05/22/23 10:04 FiO2 30 05/22/23 10:41 Laboratory Results - last 24 hr 05/22/23 10:05: VBG pH 7.19 L, VBG pCO2 89.1 H, VBG pO2 78.6 H, VBG HCO3 33.6 H, VBG Total CO2 36.3 H, VBG O2 Saturation 94.4 H, VBG Base Excess 5.4 H 05/22/23 10:12: WBC 8.8, RBC 4.55 L, Hgb 15.3, Hct 48.2, MCV 106.0 H, MCH 33.7 H , MCHC 31.8, RDW 14.7, Plt Count 240, MPV 7.8, Neut % (Auto) 77.2, Lymph % (Auto) 15.2, [place] % (Auto) 6.9, Eos % (Auto) 0.3, Baso % (Auto) 0.5, Neut # (Auto) 6.8, Lymph # (Auto) 1.3, [place] # (Auto) 0.6, Eos # (Auto) 0.0, Baso # (Auto) 0.0, Sodium 135 L, Potassium 4.2, Chloride 91 L, Carbon Dioxide 40 H, Anion Gap 8.2, BUN 13, Creatinine 1.20, Estimated Creat Clear 56, Estimated GFR 60, Est GFR ( Amer) 73, Glucose 123 H, Calcium 9.0, Magnesium 2.0, Total Bilirubin 0.8, AST 37, ALT 26, Alkaline Phosphatase 116, Troponin I 0.01, NT-Pro-B Natriuret Pep 648 H, Total Protein 7.3, Albumin 4.1, Globulin 3.2, Albumin/Globulin Ratio 1.3 05/22/23 10:13: SARS-CoV-2 (PCR) Not detected, Influenza A Untype (PCR) Not detected, Influenza Type B (PCR) Not detected 05/22/23 12:03: VBG pH 7.18 L, VBG pCO2 81.9 H, VBG pO2 36.9, VBG HCO3 29.7, VBG Total CO2 32.2 H, VBG O2 Saturation 65.2, VBG Base Excess 1.3 05/22/23 12:44: Lactate 4.6 H, Troponin I 0.03 05/22/23 14:51: Lactate 4.9 H 05/22/23 15:47: VBG pH 7.22 L, VBG pCO2 73.6 H, VBG pO2 33.4, VBG HCO3 29.4, VBG Total CO2 31.7 H, VBG O2 Saturation 60.7, VBG Base Excess 1.7 05/22/23 16:22: Troponin I 0.03 05/22/23 17:22: Lactate 4.4 H I & O for Last 24 hours: Intake & Output 05/19/23 05/20/23 05/21/23 05/22/23 23:59 23:59 23:59 23:59 Intake Total 288.500 / 288.500 Balance 288.500 / 288.500 Weight 92.079 kg Constitutional Constitutional: no acute distress *Routine HEENT Exam Head: Present normocephalic Eye: Present EOMI and PERRL ENT: Present mucous membranes moist *Routine Neck Exam Neck: Present supple; Absent lymphadenopathy *Routine Respiratory Exam Respiratory: Present CTA bilaterally *Routine Cardiovascular Exam Cardiovascular: Present RRR *Routine Abdominal Exam Abdominal: Present soft and normoactive bowel sounds; Absent tenderness *Routine Rectal Exam Rectal:: deferred *Routine Genitalia Exam Genitalia:: deferred *Routine Extremities Exam Extremities: Absent cyanosis, clubbing or edema *Routine Skin Exam Skin: Present warm; Absent rash *Routine Neurological Exam Neurological: Present alert and oriented X3 Assessment and Plan *Assessment and plan (1) Acute respiratory failure with hypoxia and hypercarbia: Status: Acute Category: Medical Code(s): J96.01 - Acute respiratory failure with hypoxia; J96.02 - Acute respiratory failure with hypercapnia (2) COPD exacerbation: Status: Acute Category: Medical Code(s): J44.1 - Chronic obstructive pulmonary disease with (acute) exacerbation (3) CAD in [place] artery: Status: Acute Category: Medical Code(s): I25.10 - Atherosclerotic heart disease of [place] coronary artery without angina pectoris (4) Coronary artery calcification seen on CAT scan: Status: Acute Category: Medical Code(s): I25.10 - Atherosclerotic heart disease of [place] coronary artery without angina pectoris (5) Acute CHF: Status: Acute Category: Medical Code(s): I50.9 - Heart failure, unspecified Plan Patient is a 67-year-old male who presented to hospital due to shortness of breath. Patient has past medical history of CAD CHF, hypertension hyperlipidemia, diabetes mellitus, COPD on 4 L at baseline. According to the patient he has been having shortness of breath for past couple days, it has been getting worse, he was found hypoxic on arrival to the hospital he was a started on BiPAP. Patient otherwise denied fever chills diarrhea constipation dysuria or chest pain. In the emergency department patient was also found to be hypotensive and was a started on Levophed, was found to be hypercapnic respiratory failure was started on BiPAP and was admitted for further management. He endorses productive cough with yellow phlegm production. Assessment and plan Shortness of breath, acute hypoxic hypercapnic respiratory failure COPD exacerbation Suspect CHF exacerbation -Start DuoNebs every 4 hours, continue steroids inhalations per pulmonary -Start levofloxacin -Status post Lasix in the emergency department, will hold off on further Lasix for now given hypotension and patient requiring Levophed for blood pressure support Pulmonary, cardiology consulted-appreciate recommendations Rapid flu antigen, COVID-19 tested-negative CTA chest has been ordered, cardiology-pending result Hypotension Lactic acidosis Shock requiring vasopressor support Continue Levophed Monitor lactic acid start empirical antibiotics - unclear source, order blood cultures, CXR - negative for acute pathology, Flue and COVID19 negaative Chronic medical conditions CAD Tobacco use Alcohol use DVT prophylaxis-heparin
[2023-05-22] MEDS: PANTOPRAZOLE 40MG TABLET 40 MG PO (18:13)
[2023-05-22] MEDS: CITALOPRAM 40MG TABLET 40 MG PO (18:13)
[2023-05-22] MEDS: ASPIRIN EC 81MG TABLET 81 MG PO (18:14)
--- NOTE | 2023-05-22 18:49 | EXP.EVENT.NO ---
CTA chest reviewed - positive for non-occluding PE, started on eliquis
[2023-05-22] MEDS: IPRATROPIUM/ALBUTEROL 3 ML NEB IH ×2 (18:52→21:46)
[2023-05-22] MEDS: BUDESONIDE 0.5MG/2ML NEB 0.5 MG IH (18:52)
[2023-05-22 19:29] LABS: Reflex Lactic (2 hrs) Add Lactic Reflex
--- NOTE | 2023-05-22 19:29 | PC.NURSE ---
Pt sleeping at this time. Bipap currently on. Pt tolerating it well. VS currently stable. Pt remains on Levophed @ 6 mcg/min. Call light within reach. Safety measures in place.
[2023-05-22 20:38] LABS: Lactic Acid Follow up (RFLX 2) 2.6 mmol/L (0.7-2.1)
[2023-05-22] MEDS: ATORVASTATIN 40MG TABLET 40 MG PO (21:03)
[2023-05-22] MEDS: APIXABAN 5MG TABLET 5 MG PO (21:03)
[2023-05-22] MEDS: ACETAMINOPHEN 325MG TAB 650 MG PO (22:49)
[2023-05-23] VITALS (28 sets, daily range): BP systolic 89–146; BP diastolic 66–93; PULSE 72–120; RESP 14–41; TEMP 36.6–37.2; O2SAT 93–100; BMI 29.3
[2023-05-23] MEDS: IPRATROPIUM/ALBUTEROL 3 ML NEB IH ×6 (01:52→21:38)
[2023-05-23] MEDS: BUDESONIDE 0.5MG/2ML NEB 0.5 MG IH ×2 (05:57→17:59)
[2023-05-23 07:14] LABS: Basophils % 0.1 % (0.1-2.0); Eosinophils % 0.1 % (0.1-12.0); Lymphocytes # 0.9 K/mm3 (0.7-4.5); Lymphocytes % 11.2 % (10-50); Mean Corpuscular HGB Conc 33.2 g/dL (31.8-35.4); Mean Corpuscular Hemoglobin 33.7 pg (27.0-31.2); Mean Corpuscular Volume 101.7 fl (80-94); Mean Platelet Volume 8.3 fl (7.4-10.4); Monocytes # 0.9 K/mm3 (0.1-1.0); Neutrophils # 6.3 K/mm3 (1.8-7.8); Neutrophils % 77.6 % (37.0-80.0); Platelet Count 252 K/mm3 (142-424); Red Blood Count 4.03 M/mm3 (4.60-6.20); Red Cell Distribution Width 14.8 % (11.5-17.5); White Blood Count 8.1 K/mm3 (4.8-10.8)
[2023-05-23 07:21] LABS: Chloride 92 mmol/L (98-107); Sodium 130 mmol/L (136-145)
[2023-05-23 07:22] LABS: Potassium 3.9 mmoL/L (3.5-5.1)
[2023-05-23 07:24] LABS: Blood Urea Nitrogen 24 mg/dl (9-20); Creatinine Clearance Estimated 59 mL/min (50-200); Estimated Glomerular Filt Rate 43 ml/min (>60); GFR (African American) 52 ML/MIN (>60)
[2023-05-23 07:25] LABS: Anion Gap 2.9 mEq/L (5-15); Calcium 9.1 mg/dl (8.4-10.2); Carbon Dioxide 39 mmol/L (22.0-30.0); Glucose 125 mg/dl (74-100)
[2023-05-23 07:44] LABS: Hemoglobin 13.6 g/dL (14.1-18.0)
[2023-05-23] MEDS: PANTOPRAZOLE 40MG TABLET 40 MG PO (08:04)
[2023-05-23] MEDS: APIXABAN 5MG TABLET 5 MG PO ×2 (08:04→10:12)
[2023-05-23] MEDS: CITALOPRAM 40MG TABLET 40 MG PO (08:04)
[2023-05-23] MEDS: FOLIC ACID 1MG TABLET 1 MG PO (08:04)
[2023-05-23] MEDS: NICOTINE 21MG/24HR PATCH 21 MG TD (08:05)
[2023-05-23] MEDS: METHYLPREDNISOLONE SOD SUCC 40MG VIAL 40 MG IV (08:05)
[2023-05-23] MEDS: ASPIRIN EC 81MG TABLET 81 MG PO (08:05)
--- NOTE | 2023-05-23 08:26 | PC.NURSE ---
removed pt's bipap so pt could take pills and eat breakfast, pt's oxygen saturations 95-98% on 6LNC, pt sitting on edge of bed eating breakfast
--- NOTE | 2023-05-23 08:40 | PC.NURSE ---
increased oxygen back to 6LNC (MD King had placed pt on 4LNC during rounds), pt extremely tachypneic, anxious, and requested to be placed back on 6LNC even though oxygen saturations on 4LNC 96-100%
--- NOTE | 2023-05-23 09:34 | EXP.PULM.PN ---
Subjective *Date: 05/23/23 *Time: 10:16 Interval history: No acute respiratory events overnight. Patient admits improving respiratory symptoms. Pulmonology Exam Inpatient Vital signs and Labs for Last 24 Hours: Temp Pulse Resp BP Pulse Ox O2 Del Method O2 Flow Rate 98.3 F 117 H 26 H 124/77 98 Nasal Cannula 6 05/23/23 08:00 05/23/23 09:00 05/23/23 09:00 05/23/23 09:00 05/23/23 09:00 05/23/23 09:00 05/23/23 09:00 FiO2 30 05/23/23 06:49 Laboratory Results - last 24 hr 05/22/23 10:05: VBG pH 7.19 L, VBG pCO2 89.1 H, VBG pO2 78.6 H, VBG HCO3 33.6 H, VBG Total CO2 36.3 H, VBG O2 Saturation 94.4 H, VBG Base Excess 5.4 H 05/22/23 10:12: WBC 8.8, RBC 4.55 L, Hgb 15.3, Hct 48.2, MCV 106.0 H, MCH 33.7 H, MCHC 31.8, RDW 14.7, Plt Count 240, MPV 7.8, Neut % (Auto) 77.2, Lymph % (Auto) 15.2, [place] % (Auto) 6.9, Eos % (Auto) 0.3, Baso % (Auto) 0.5, Neut # (Auto) 6.8, Lymph # (Auto) 1.3, [place] # (Auto) 0.6, Eos # (Auto) 0.0, Baso # (Auto) 0.0, Sodium 135 L, Potassium 4.2, Chloride 91 L, Carbon Dioxide 40 H, Anion Gap 8.2, BUN 13, Creatinine 1.20, Estimated Creat Clear 56, Estimated GFR 60, Est GFR ( Amer) 73, Glucose 123 H, Calcium 9.0, Magnesium 2.0, Total Bilirubin 0.8, AST 37, ALT 26, Alkaline Phosphatase 116, Troponin I 0.01, NT-Pro-B Natriuret Pep 648 H, Total Protein 7.3, Albumin 4.1, Globulin 3.2, Albumin/Globulin Ratio 1.3 05/22/23 10:13: SARS-CoV-2 (PCR) Not detected, Influenza A Untype (PCR) Not detected, Influenza Type B (PCR) Not detected 05/22/23 12:03: VBG pH 7.18 L, VBG pCO2 81.9 H, VBG pO2 36.9, VBG HCO3 29.7, VBG Total CO2 32.2 H, VBG O2 Saturation 65.2, VBG Base Excess 1.3 05/22/23 12:44: Lactate 4.6 H, Troponin I 0.03 05/22/23 14:51: Lactate 4.9 H 05/22/23 15:47: VBG pH 7.22 L, VBG pCO2 73.6 H, VBG pO2 33.4, VBG HCO3 29.4, VBG Total CO2 31.7 H, VBG O2 Saturation 60.7, VBG Base Excess 1.7 05/22/23 16:22: Troponin I 0.03 05/22/23 17:22: Lactate 4.4 H 05/22/23 20:20: Lactate 2.6 H 05/23/23 05:47: WBC 8.1, RBC 4.03 L, Hgb 13.6 L D, Hct 41.0 L, MCV 101.7 H, MCH 33.7 H, MCHC 33.2, RDW 14.8, Plt Count 252, MPV 8.3, Neut % (Auto) 77.6, Lymph % (Auto) 11.2, [place] % (Auto) 11.0 H, Eos % (Auto) 0.1, Baso % (Auto) 0.1, Neut # (Auto) 6.3, Lymph # (Auto) 0.9, [place] # (Auto) 0.9, Eos # (Auto) 0.0, Baso # (Auto) 0.0, Sodium 130 L, Potassium 3.9, Chloride 92 L, Carbon Dioxide 39 H, Anion Gap 2.9 L, BUN 24 H D, Creatinine 1.60 H D, Estimated Creat Clear 59, Estimated GFR 43 L, Est GFR ( Amer) 52 L D, Glucose 125 H, Calcium 9.1 I & O for Labs for Last 24 Hours: Intake & Output 05/20/23 05/21/23 05/22/23 05/23/23 23:59 23:59 23:59 23:59 Intake Total 989.500 / 989.500 809.178 / 809.178 Output Total 400 / 400 640 / 640 Balance 589.500 / 589.500 169.178 / 169.178 Weight 203 lb 205 lb 1 oz Microbiology Reports for the Last 24 Hours: Microbiology 04/08/23 21:00 Sputum - Expectorated Sputum Gram Stain - Final 04/08/23 21:00 Sputum - Expectorated Sputum Sputum Culture - Preliminary Constitutional: Present moderate distress Head: Present normocephalic and atraumatic ENT: Present normal exam, normal oropharynx and mucous membranes moist Neck: Present normal inspection and full ROM Respiratory: Present decreased breath sounds, prolonged expiratory phase, respiratory distress, wheezes and able to speak in complete sentences Cardiac: Present S1/S2, Tachycardia and radial pulses present GI: Present soft and distention; Absent tenderness or guarding Skin: Present intact; Absent cyanosis or jaundice Neuro: Present alert, awake and oriented x 3 Extremities: Present normal inspection; Absent clubbing or cyanosis Psychiatric: Present normal affect and cooperative Assessment and Plan *Assessment and plan (1) COPD exacerbation: Status: Acute Category: Medical Code(s): J44.1 - Chronic obstructive pulmonary disease with (acute) exacerbation (2) Acute respiratory failure with hypoxia and hypercarbia: Status: Acute Category: Medical Code(s): J96.01 - Acute respiratory failure with hypoxia; J96.02 - Acute respiratory failure with hypercapnia (3) Pulmonary embolism: Status: Acute Qualifiers: Chronicity: acute Acute cor pulmonale presence: without acute cor pulmonale Pulmonary embolism type: other Qualified Code(s): I26.99 - Other pulmonary embolism without acute cor pulmonale Category: Medical Code(s): I26.99 - Other pulmonary embolism without acute cor pulmonale Plan Mr. Flores is a 67-year-old male current smoker-30 PPD for COPD, previously seen in the hospital in August 2022 in April 2023 for COPD exacerbation presented to the ER with worsening respiratory distress, found to be in hypoxic hypercarbic respiratory failure needing BiPAP therapy and pulmonary was called for further evaluation and management. ABG upon admission severe hypercarbic respiratory failure. Chest x-ray stable from prior with no dense consolidation/airspace disease. Afebrile. Hemodynamically stable. No acute evidence of leukocytosis. COVID-19 and flu PCR negative upon admission. Auscultation bilateral diffuse wheezing decreased breath sounds. Interval Update: No acute respiratory vents overnight. Wean to nasal cannula. CTA nonoccluding pulmonary emboli in the left lower lobe with distal filling noted. Less likely contributing to current hypoxia/increasing oxygen requirements. No evidence of RV strain. Recommend anticoagulation for 3 months Plan: Continue oxygen supplementation to maintain O2 saturation of 90 to 95%. Patient on 4 L morning saturating 100%, weaned to 1 L with saturations maintained at 96%. Patient insisted on needing 4 L explained in detail regarding the need for him to be saturating between 90 to 95%. Expressed understanding. It seems that patient is also having anxiety issues contributing his respiratory distress which will be managed by primary team. Will continue to wean his oxygen as tolerated to maintain O2 sat goal of 90 to 95% Follow with VBG Change antibiotics to levofloxacin 750mg daily pending cultures and nasal MRSA PCR DuoNebs every 4 hours along with Pulmicort every 12 scheduled Continue anticoagulation for the noted PE for at least 3 months. Follow-up with D-dimer and lower extremity venous Doppler The concerning right lower lobe lesion on his most recent CT on Apr 2023 appeared to be improving on today's chest x-ray, prior to prior, and a CTA performed yesterday for near complete resolution but no need for further follow-up with CT imaging at this point of time.
--- NOTE | 2023-05-23 10:19 | CA_ITS ---
FINAL REPORT TECHNIQUE: Bilateral lower extremity venous duplex was performed with augmentation and compression. CLINICAL HISTORY: PE, COPD, Smoker, CAD, HLD, HTN, respiratory failure, DM, SOB. COMPARISON: None FINDINGS: Proper flow is seen throughout the deep venous systems bilaterally. There is no evidence of deep venous thrombosis. IMPRESSION: No evidence of deep venous thrombosis. Reviewed, Interpreted and Dictated by Gabe Rodriguez MD Transcribed by Mirna Kevin Authenticated and [facility]
[2023-05-23 10:58] LABS: D-Dimer 0.43 ug/mL (0.0-0.5)
--- NOTE | 2023-05-23 11:01 | EXP.ACUTE.PN ---
Subjective *Date: 05/23/23 *Time: 13:34 Interval history: Eating breakfast on morning rounds. Denies any chest pain. Stable on 4 L with sats of 100%, weaned during rounds to 2 L. Afebrile. Weaning off Levophed with appropriate blood pressures. Overall doing better. Medical Exam Vital signs and Labs for Last 24 Hours: Vital Signs Temp Pulse Pulse Resp BP BP Pulse Ox 05/23/23 08:00 120 H 05/23/23 09:58 104 H 05/23/23 09:58 108 H 05/23/23 06:15 05/23/23 09:00 05/23/23 09:00 117 H 26 H 124/77 98 05/23/23 08:00 98.3 F 115 H 38 H 146/90 H 98 05/23/23 08:20 107 H 41 H 146/90 H 100 05/23/23 08:00 116 H 31 H 91/70 L 98 05/23/23 06:49 96 H 23 125/74 97 05/23/23 06:47 05/23/23 05:58 77 05/23/23 05:58 72 05/23/23 05:58 93 L 05/23/23 05:53 82 29 H 117/66 93 L 05/23/23 04:00 80 05/23/23 05:00 88 22 105/73 L 100 05/23/23 05:00 05/23/23 04:00 97.8 F 05/23/23 04:54 91 H 05/23/23 03:50 93 H 14 89/67 L 100 05/23/23 03:50 92 H 05/23/23 03:00 78 21 125/78 99 05/23/23 00:00 98 05/23/23 02:00 85 22 99/66 L 99 05/23/23 02:00 87 05/23/23 02:00 85 05/23/23 02:00 05/23/23 00:00 90 05/23/23 01:00 89 105/69 L 99 05/23/23 00:00 98.1 F 05/23/23 00:00 77 22 129/80 98 05/23/23 00:00 79 05/22/23 20:00 96 H 05/22/23 22:56 74 22 128/76 97 05/22/23 22:00 78 22 128/76 97 05/22/23 21:57 76 05/22/23 21:57 75 05/22/23 21:57 05/22/23 21:00 74 23 113/69 97 05/22/23 20:00 96 05/22/23 20:00 97 H 89/62 L 97 05/22/23 20:00 101 H 05/22/23 19:00 102 H 23 85/63 L 05/22/23 18:00 108 H 22 136/79 98 05/22/23 18:59 05/22/23 17:00 05/22/23 19:05 110 H 05/22/23 19:05 104 H 05/22/23 19:05 05/22/23 16:40 99.9 F H 05/22/23 16:00 100 H 05/22/23 16:00 05/22/23 16:00 99 H 22 100/62 L 95 05/22/23 15:00 05/22/23 14:53 97.5 F L 107 H 20 102/64 L 95 05/22/23 14:36 97.9 F 106 H 17 102/64 L 05/22/23 14:20 106 H 19 102/61 L 93 L 05/22/23 14:16 103 H 21 99/65 L 98 05/22/23 13:55 109 H 15 88/59 L 98 05/22/23 13:50 118 H 19 81/49 L 98 05/22/23 13:40 118 H 22 81/64 L 96 05/22/23 13:25 114 H 24 72/39 L 98 05/22/23 13:08 118 H 19 73/46 L 98 05/22/23 12:46 127 H 24 119/87 96 05/22/23 11:50 121 H 34 H 115/52 L 98 O2 Del Method O2 Flow Rate FiO2 05/23/23 08:00 05/23/23 09:58 05/23/23 09:58 05/23/23 06:15 30 05/23/23 09:00 Nasal Cannula 6 05/23/23 09:00 Nasal Cannula 6 05/23/23 08:00 Nasal Cannula 5 05/23/23 08:20 Nasal Cannula 6 05/23/23 08:00 BiPAP 05/23/23 06:49 BiPAP 30 05/23/23 06:47 BiPAP 05/23/23 05:58 05/23/23 05:58 05/23/23 05:58 Nasal Cannula 2 05/23/23 05:53 Nasal Cannula 6 05/23/23 04:00 05/23/23 05:00 BiPAP 30 05/23/23 05:00 Nasal Cannula 3 05/23/23 04:00 05/23/23 04:54 05/23/23 03:50 BiPAP 30 05/23/23 03:50 05/23/23 03:00 BiPAP 30 05/23/23 00:00 BiPAP 30 05/23/23 02:00 BiPAP 30 05/23/23 02:00 05/23/23 02:00 05/23/23 02:00 30 05/23/23 00:00 05/23/23 01:00 BiPAP 30 05/23/23 00:00 05/23/23 00:00 BiPAP 30 05/23/23 00:00 05/22/23 20:00 05/22/23 22:56 BiPAP 30 05/22/23 22:00 30 05/22/23 21:57 05/22/23 21:57 05/22/23 21:57 30 05/22/23 21:00 BiPAP 30 05/22/23 20:00 BiPAP 05/22/23 20:00 BiPAP 30 05/22/23 20:00 05/22/23 19:00 BiPAP 05/22/23 18:00 Nasal Cannula 2 05/22/23 18:59 BiPAP 05/22/23 17:00 Nasal Cannula 3 05/22/23 19:05 05/22/23 19:05 05/22/23 19:05 30 05/22/23 16:40 05/22/23 16:00 05/22/23 16:00 BiPAP 05/22/23 16:00 BiPAP 05/22/23 15:00 BiPAP 05/22/23 14:53 BiPAP 05/22/23 14:36 BiPAP 05/22/23 14:20 BiPAP 05/22/23 14:16 BiPAP 05/22/23 13:55 05/22/23 13:50 05/22/23 13:40 05/22/23 13:25 05/22/23 13:08 BiPAP 05/22/23 12:46 BiPAP 05/22/23 11:50 Intake and Output 05/22/23 05/23/23 05/23/23 23:59 07:59 15:59 Intake Total 982 / 989.500 437.303 / 1169.178 731.875 / 1169.178 Output Total 400 / 400 440 / 640 200 / 640 Balance 582 / 589.500 -2.697 / 529.178 531.875 / 529.178 Intake: Intake, Oral Amount 540 / 540 120 / 840 720 / 840 Intake, Total IV Amount 442 / 449.500 317.303 / 329.178 11.875 / 329.178 Levofloxacin/D5w 750 mg/150 ml 150 / 150 750 mg In 150 ml @ 100 mls/hr IV Q24H [facility] Rx#:[id number] Norepinephrine Bitartrate/D5w 8 42 / 42 138 / 138 mg In 250 ml @ 2 MCG/MIN 3.75 mls/hr IV .Q24H [facility] Rx#: [id number] Vancomycin/Water For Inj (Peg) 250 / 250 1.25 gm In 250 ml @ 125 mls/hr IV Q18H [facility] Rx#:[id number] Output: Output, Urine Amount 400 / 400 440 / 640 200 / 640 Other: Number of Voids 0 Weight 93.015 kg Patient Weight 05/23/23 23:59 Weight 93.015 kg Laboratory Results - last 24 hr 05/22/23 10:12: NT-Pro-B Natriuret Pep 648 H 05/22/23 10:13: SARS-CoV-2 (PCR) Not detected, Influenza A Untype (PCR) Not detected, Influenza Type B (PCR) Not detected 05/22/23 12:03: VBG pH 7.18 L, VBG pCO2 81.9 H, VBG pO2 36.9, VBG HCO3 29.7, VBG Total CO2 32.2 H, VBG O2 Saturation 65.2, VBG Base Excess 1.3 05/22/23 12:44: Lactate 4.6 H, Troponin I 0.03 05/22/23 14:51: Lactate 4.9 H 05/22/23 15:47: VBG pH 7.22 L, VBG pCO2 73.6 H, VBG pO2 33.4, VBG HCO3 29.4, VBG Total CO2 31.7 H, VBG O2 Saturation 60.7, VBG Base Excess 1.7 05/22/23 16:22: Troponin I 0.03 05/22/23 17:22: Lactate 4.4 H 05/22/23 20:20: Lactate 2.6 H 05/23/23 05:47: WBC 8.1, RBC 4.03 L, Hgb 13.6 L D, Hct 41.0 L, MCV 101.7 H, MCH 33.7 H, MCHC 33.2, RDW 14.8, Plt Count 252, MPV 8.3, Neut % (Auto) 77.6, Lymph % (Auto) 11.2, [place] % (Auto) 11.0 H, Eos % (Auto) 0.1, Baso % (Auto) 0.1, Neut # (Auto) 6.3, Lymph # (Auto) 0.9, [place] # (Auto) 0.9, Eos # (Auto) 0.0, Baso # (Auto) 0.0, Sodium 130 L, Potassium 3.9, Chloride 92 L, Carbon Dioxide 39 H, Anion Gap 2.9 L, BUN 24 H D, Creatinine 1.60 H D, Estimated Creat Clear 59, Estimated GFR 43 L, Est GFR ( Amer) 52 L D, Glucose 125 H, Calcium 9.1 I & O for Labs for Last 24 Hours: Intake & Output 05/20/23 05/21/23 05/22/23 05/23/23 23:59 23:59 23:59 23:59 Intake Total 989.500 / 446.691 9821.178 / 1169.178 Output Total 400 / 400 640 / 640 Balance 589.500 / 589.500 529.178 / 529.178 Weight 92.079 kg 93.015 kg Constitutional: Present no acute distress, average body habitus and chronically ill appearing Head: Present atraumatic Respiratory: Present prolonged expiratory phase, wheezes, distant breath sounds and diminished air movement; Absent rhonchi or crackles Comment:: barrel chested Cardiac: Present Reg Rate and Rhythm GI: Present soft and normal bowel sounds; Absent distention or tenderness Extremities: Present normal inspection and full ROM Skin: Present intact; Absent erythema Neuro: Present Grossly Intact, alert, awake, oriented x 3 and moves all extremities Assessment and Plan *Assessment and plan (1) Acute respiratory failure with hypoxia and hypercarbia: Status: Acute Category: Medical Code(s): J96.01 - Acute respiratory failure with hypoxia; J96.02 - Acute respiratory failure with hypercapnia (2) COPD exacerbation: Status: Acute Category: Medical Code(s): J44.1 - Chronic obstructive pulmonary disease with (acute) exacerbation (3) CAD in [place] artery: Status: Acute Category: Medical Code(s): I25.10 - Atherosclerotic heart disease of [place] coronary artery without angina pectoris (4) Coronary artery calcification seen on CAT scan: Status: Acute Category: Medical Code(s): I25.10 - Atherosclerotic heart disease of [place] coronary artery without angina pectoris (5) Acute CHF: Status: Acute Category: Medical Code(s): I50.9 - Heart failure, unspecified Plan Patient is a 67-year-old male who presented to hospital due to shortness of breath. Patient has past medical history of CAD CHF, hypertension hyperlipidemia, diabetes mellitus, COPD on 4 L at baseline. According to the patient he has been having shortness of breath for past couple days, it has been getting worse, he was found hypoxic on arrival to the hospital he was a started on BiPAP. Patient otherwise denied fever chills diarrhea constipation dysuria or chest pain. In the emergency department patient was also found to be hypotensive and was a started on Levophed, was found to be hypercapnic respiratory failure was started on BiPAP and was admitted for further management. He endorses productive cough with yellow phlegm production. Weaned off Levophed this morning. showing improvement. worsening RUBENS. Shortness of breath, acute hypoxic hypercapnic respiratory failure COPD exacerbation Suspect CHF exacerbation -Weaning oxygen. Tolerating 1 L on morning rounds. Wears up to 4 L at home. Continues to smoke at home. -Continue DuoNebs every 4 hours scheduled, continue Pulmicort every 12 hours scheduled -Continue levofloxacin 750 mg daily for 5 days. -Discussed case with pulmonology and cardiology, recommend continuing anticoagulation. Wean oxygen as tolerated. - Continue anticoagulation for the noted PE for at least 3 months. Follow-up with D-dimer and lower extremity venous Doppler - Trelegy inhaler daily Hypotension Lactic acidosis -Weaned off Levophed. Maintain goal MAP greater than 65. Holding home blood pressure regimen given hypotension Continue home Lexapro 20 mg daily for mood Nicotine patch daily as needed for tobacco dependence Pantoprazole 40 mg daily Full code Cardiac diet Eliquis 10 mg twice daily
[2023-05-23] MEDS: ACETAMINOPHEN 325MG TAB 650 MG PO (11:57)
[2023-05-23 12:02] LABS: VBG Base Excess 5.9 mmol/L (-2.4-2.3); VBG HCO3 29.4 mmol/L (23-30); VBG Oxygen Saturation 94.5 % (50-70); VBG PCO2 40.8 mmol/L (35-51); VBG PH 7.48 mmol/L (7.31-7.41); VBG Total CO2 30.7 mmol/L (23-27)
--- NOTE | 2023-05-23 14:50 | EXP.CARD.PN ---
Subjective Subjective Date: 05/23/23 Time: 10:00 Interval history: CTA chest yesterday revealed resolution of right lower lobe dense consolidation as well as surrounding nodules. It did note however small bilateral nonobstructive PEs. He was started on Eliquis last night. This morning reports that he still has significant wheezing and shortness of breath, requiring 6 L/min O2. Exam Data for Last 24 hours Vital signs and Labs for Last 24 Hours: Temp Pulse Resp BP Pulse Ox O2 Del Method O2 Flow Rate 98.9 F 105 H 27 H 126/75 94 L Nasal Cannula 2 05/23/23 11:45 05/23/23 13:51 05/23/23 13:00 05/23/23 13:00 05/23/23 13:00 05/23/23 13:00 05/23/23 13:00 FiO2 30 05/23/23 06:49 Laboratory Results - last 24 hr 05/22/23 14:51: Lactate 4.9 H 05/22/23 15:47: VBG pH 7.22 L, VBG pCO2 73.6 H, VBG pO2 33.4, VBG HCO3 29.4, VBG Total CO2 31.7 H, VBG O2 Saturation 60.7, VBG Base Excess 1.7 05/22/23 16:22: Troponin I 0.03 05/22/23 17:22: Lactate 4.4 H 05/22/23 20:20: Lactate 2.6 H 05/23/23 05:47: WBC 8.1, RBC 4.03 L, Hgb 13.6 L D, Hct 41.0 L, MCV 101.7 H, MCH 33.7 H, MCHC 33.2, RDW 14.8, Plt Count 252, MPV 8.3, Neut % (Auto) 77.6, Lymph % (Auto) 11.2, [place] % (Auto) 11.0 H, Eos % (Auto) 0.1, Baso % (Auto) 0.1, Neut # (Auto) 6.3, Lymph # (Auto) 0.9, [place] # (Auto) 0.9, Eos # (Auto) 0.0, Baso # (Auto) 0.0, Sodium 130 L, Potassium 3.9, Chloride 92 L, Carbon Dioxide 39 H, Anion Gap 2.9 L, BUN 24 H D, Creatinine 1.60 H D, Estimated Creat Clear 59, Estimated GFR 43 L, Est GFR ( Amer) 52 L D, Glucose 125 H, Calcium 9.1 05/23/23 10:19: VBG pH 7.48 H, VBG pCO2 40.8, VBG pO2 66.0 H, VBG HCO3 29.4, VBG Total CO2 30.7 H, VBG O2 Saturation 94.5 H, VBG Base Excess 5.9 H 05/23/23 10:35: D-Dimer 0.43 I & O for Last 24 hours: Intake & Output 05/20/23 05/21/23 05/22/23 05/23/23 23:59 23:59 23:59 23:59 Intake Total 989.500 / 942.403 5789.178 / 1769.178 Output Total 400 / 400 840 / 840 Balance 589.500 / 589.500 929.178 / 929.178 Weight 203 lb 205 lb 1 oz Microbiology Reports for the Last 24 Hours: Microbiology 05/22/23 15:45 Nose - Nasal MRSA Culture - Final Constitutional Constitutional: no acute distress and cooperative *Routine HEENT Exam Eye: Present PERRL *Routine Respiratory Exam Respiratory: Present accessory muscle use, CTA bilaterally and wheezes; Absent crackles Comments: Severe diffuse wheezing throughout *Routine Cardiovascular Exam Cardiovascular: Present RRR, Normal S1 and Normal S2; Absent murmur, gallop or rubs *Routine Abdominal Exam Abdominal: Present soft; Absent tenderness *Routine Extremities Exam Extremities: Present pulses intact; Absent cyanosis or edema *Routine Skin Exam Skin: Present intact; Absent erythema or wounds *Routine Neurological Exam Neurological: Present alert and oriented X3 Routine Psychiatric Exam Psychiatric: Present cooperative Progress Note: A&P Assessment and plan (1) Acute respiratory failure with hypoxia and hypercarbia: Status: Acute (2) COPD exacerbation: Status: Acute (3) CAD in [place] artery: Status: Acute (4) Coronary artery calcification seen on CAT scan: Status: Acute (5) Acute CHF: Status: Acute Assessment and Plan Assessment and Plan for All Diagnoses:: Acute on chronic hypoxic respiratory failure -Patient had nonobstructive CAD on heart cath and only mild RV dilation on 2D echo here in April - unlikely CHF event -He has O2 4 L/min at baseline and has URI symptoms and productive cough with yellow sputum-likely COPD exacerbation -CT chest here in April revealed right lower lobe masslike opacity and several enlarging nodules which have resolved but he has small bilateral RLL, LLL PEs Bilateral PEs - new dx here noted on CTA in setting of acute on chronic hypoxia and tachycardia. There is low clot burden and no RV strain. - cont Eliquis 10mg BID x7days then 5mg BID after that - he can f/u with us in clinic for management Sinus tachycardia -secondary to hypoxia -hx of SVT on Bisoprolol but dosing limited due to severe Emphysema Hypotension with lactic acidosis -On supplemental O2 -Levophed discontinued Nonobstructive CAD -Per left heart cath 04/2023 -Continue aspirin and CV risk factor modification 05/23: Eliquis dose adjusted to treatment dose. No further inpatient CV recommendations/workup warranted at this time so we will sign off. Please advise if further quetions/concerns otherwise we will see him in clinic 2 weeks post discharge.
[2023-05-23] MEDS: LEVOFLOXACIN/D5W 750 MG/150 ML 750 MG/150 ML PIGGYBACK 100 MG IV (16:03)
[2023-05-23 18:34] LABS: Chloride 92 mmol/L (98-107); Sodium 133 mmol/L (136-145)
[2023-05-23 18:37] LABS: Blood Urea Nitrogen 33 mg/dl (9-20); Calcium 9.1 mg/dl (8.4-10.2); Creatinine Clearance Estimated 59 mL/min (50-200); Estimated Glomerular Filt Rate 43 ml/min (>60); GFR (African American) 52 ML/MIN (>60); Glucose 87 mg/dl (74-100)
[2023-05-23 18:44] LABS: Carbon Dioxide 40 mmol/L (22.0-30.0)
[2023-05-23] MEDS: APIXABAN 5MG TABLET 10 MG PO (20:02)
[2023-05-23] MEDS: ATORVASTATIN 40MG TABLET 40 MG PO (20:02)
[2023-05-23] MEDS: MELATONIN 5MG TABLET 10 MG PO (21:46)
[2023-05-24] VITALS (21 sets, daily range): BP systolic 103–138; BP diastolic 53–92; PULSE 70–140; RESP 26–31; TEMP 36.4–36.7; O2SAT 94–99; BMI 29.3; BMI 29.2
[2023-05-24] MEDS: CEFEPIME HCL 2 GM in 0.9 % SODIUM CHLORIDE 100 ML IV ×4 (00:37→22:45)
[2023-05-24] MEDS: IPRATROPIUM/ALBUTEROL 3 ML NEB IH ×6 (01:35→22:11)
[2023-05-24] MEDS: VANCOMYCIN/WATER FOR INJ (PEG) 1.5 GM/300 ML PIGGYBACK IV ×2 (01:43→19:55)
[2023-05-24] MEDS: VANCOMYCIN CONSULT REQUEST 1 EACH NOTAPPLIC (01:45)
[2023-05-24] MEDS: BUDESONIDE 0.5MG/2ML NEB 0.5 MG IH ×2 (06:11→17:44)
[2023-05-24 06:35] LABS: Basophils % 0.2 % (0.1-2.0); Eosinophils % 0.2 % (0.1-12.0); Hematocrit 40.2 % (42.0-52.0); Hemoglobin 13.2 g/dL (14.1-18.0); Lymphocytes # 1.1 K/mm3 (0.7-4.5); Lymphocytes % 15.3 % (10-50); Mean Corpuscular HGB Conc 32.8 g/dL (31.8-35.4); Mean Corpuscular Hemoglobin 33.9 pg (27.0-31.2); Mean Corpuscular Volume 103.4 fl (80-94); Mean Platelet Volume 7.9 fl (7.4-10.4); Monocytes # 0.6 K/mm3 (0.1-1.0); Monocytes % 8.7 % (1.7-9.3); Neutrophils # 5.3 K/mm3 (1.8-7.8); Neutrophils % 75.6 % (37.0-80.0); Platelet Count 221 K/mm3 (142-424); Red Blood Count 3.89 M/mm3 (4.60-6.20); Red Cell Distribution Width 14.8 % (11.5-17.5)
[2023-05-24 06:44] LABS: Chloride 95 mmol/L (98-107); Potassium 3.9 mmoL/L (3.5-5.1); Sodium 133 mmol/L (136-145)
[2023-05-24 06:47] LABS: Blood Urea Nitrogen 31 mg/dl (9-20); Creatinine Clearance Estimated 72 mL/min (50-200); Estimated Glomerular Filt Rate 55 ml/min (>60); GFR (African American) 67 ML/MIN (>60)
[2023-05-24 06:48] LABS: Calcium 8.9 mg/dl (8.4-10.2); Glucose 96 mg/dl (74-100)
[2023-05-24 07:03] LABS: Anion Gap 0.9 mEq/L (5-15); Carbon Dioxide 41 mmol/L (22.0-30.0)
--- NOTE | 2023-05-24 08:20 | EXP.PHA.CONS ---
Pharmacy Consult Date: 05/24/23 Time: 08:20 Referring provider: DR GOMEZ Reason for Consult:: VANCOMYCIN DOSING CONSULT Allergies Allergy/AdvReac Type Severity Reaction Status Date / Time erythromycin base Allergy Unknown NA-NAUSEA/V Verified 11/19/18 11:23 [ERYTHROMYCIN BASE] OMITING Home Medications Medication Instructions Recorded Confirmed Type albuterol sulfate 90 mcg/actuation 2 puffs IH Q4HP PRN Shortness Of 03/24/20 05/22/23 History aerosol inhaler Breath Or Wheezing amlodipine 10 mg tablet 10 mg PO DAILY High Blood Pressure 03/24/20 05/22/23 History escitalopram oxalate 20 mg tablet 20 mg PO DAILY Mood 03/24/20 05/22/23 History pantoprazole 40 mg tablet,delayed 40 mg PO DAILY Acid Reflux 08/12/22 05/22/23 History release ipratropium 20 mcg-albuterol 100 1 puff inhalation QID Breathing 04/06/23 05/22/23 History mcg/actuation mist for inhalation Problems (Combivent Respimat) lisinopril 20 1 tab PO DAILY High Blood Pressure 04/07/23 05/22/23 History mg-hydrochlorothiazide 12.5 mg tablet aspirin 81 mg tablet,delayed 81 mg PO DAILY Heart Health 05/22/23 05/22/23 History release atorvastatin 40 mg tablet 40 mg PO HS Cholesterol 05/22/23 05/22/23 History bisoprolol fumarate 5 mg tablet 5 mg PO DAILY High Blood Pressure 05/22/23 05/22/23 History fluticasone fur. 100 mcg-umeclid 1 inh inhalation DAILY Breathing 05/22/23 05/22/23 History 62.5 mcg-vilant 25 mcg Problems inhalat.powder (Trelegy Ellipta) folic acid 1 mg tablet 1 mg PO DAILY Supplement 05/22/23 05/22/23 History furosemide 40 mg tablet 40 mg PO DAILY Fluid 05/22/23 05/22/23 History nicotine 21 mg/24 hr daily 21 mg transdermal DAILY Smoking 05/22/23 05/22/23 History transdermal patch Cessation New Prescriptions to Start Prescriptions: Height: 1.78 m Weight: 92.896 kg Laboratory Results:: Laboratory Results - last 24 hr 05/23/23 10:19: VBG pH 7.48 H, VBG pCO2 40.8, VBG pO2 66.0 H, VBG HCO3 29.4, VBG Total CO2 30.7 H, VBG O2 Saturation 94.5 H, VBG Base Excess 5.9 H 05/23/23 10:35: D-Dimer 0.43 05/23/23 18:20: Sodium 133 L, Potassium 4.0, Chloride 92 L, Carbon Dioxide 40 H, Anion Gap 5.0, BUN 33 H D, Creatinine 1.60 H, Estimated Creat Clear 59, Estimated GFR 43 L, Est GFR ( Amer) 52 L, Glucose 87 D, Calcium 9.1 05/24/23 05:36: WBC 7.0, RBC 3.89 L, Hgb 13.2 L, Hct 40.2 L, MCV 103.4 H, MCH 33.9 H, MCHC 32.8, RDW 14.8, Plt Count 221, MPV 7.9, Neut % (Auto) 75.6, Lymph % (Auto) 15.3, [place] % (Auto) 8.7, Eos % (Auto) 0.2, Baso % (Auto) 0.2, Neut # (Auto) 5.3, Lymph # (Auto) 1.1, [place] # (Auto) 0.6, Eos # (Auto) 0.0, Baso # (Auto) 0.0, Sodium 133 L, Potassium 3.9, Chloride 95 L, Carbon Dioxide 41 H*, Anion Gap 0.9 L, BUN 31 H, Creatinine 1.30 H, Estimated Creat Clear 72, Estimated GFR 55 L, Est GFR ( Amer) 67 D, Glucose 96, Calcium 8.9 Medical History: Medical History (Updated 05/23/23 @ 10:18 by Bryan Ramirez MD) Acute respiratory failure with hypoxia and hypercarbia Alcohol use disorder, severe, in early remission Atypical angina CAD in [place] artery CAP (community acquired pneumonia) COPD (chronic obstructive pulmonary disease) Coronary artery calcification seen on CAT scan Cough [place]ilar lymphadenopathy Hyperlipidemia Hypertension Nodule of right lung Obesity (BMI 30-39.9) Pneumonia Pulmonary embolism Shortness of Breath Tobacco dependence Assessment and Plan Assessment and plan all Dx Assessment and Plan for all problems:: Pharmacokinetic dosing service Objective: Age: 67 yo Serum creatinine: 1.3 mg/dL Height: 70.1 Inches Weight (kg): 92.896 Diagnosis: BACTEREMIA Assessment: IBW (kg): 73.23 Dosing wt(kg): 92.896 Estimated Creatinine clearance (ml/min): 57.1 CRCL method: Cockcroft and Gault using ibw(default). Drug selected: Vancomycin Vd (liters): 69.7 (factor used: 0.75 L/kg) Keith (hr-1): 0.052 Half life (hrs): 13.33 CLvanco=?? 3.624 L/hr Recommended dose: 1500 mg Interval: 18 hrs Infusion time (hrs): 2.0 Predicted peak (mcg/mL): 33.6 Predicted trough (mcg/mL): 14.62 Total body weight is being used for vancomycin dosing. Recommendations: Give Vancomycin 1500 mg q 18 hrs with an expected Cpeak of 33.6 mcg/ml and an expected Ctrough of 14.62 mcg/ml AUC 0-24 /ALEXEY Data: ALEXEY 0.5 mcg/mL:?? AUC/ALEXEY:? 1103.8 ALEXEY 1.0 mcg/mL:?? AUC/ALEXEY:? 551.9 --------- ALEXEY 1.5 mcg/mL:?? AUC/ALEXEY:? 367.9 ALEXEY 2.0 mcg/mL:?? AUC/ALEXEY:? 275.9 Thank you for the consult
[2023-05-24] MEDS: METHYLPREDNISOLONE SOD SUCC 40MG VIAL 40 MG IV (08:50)
[2023-05-24] MEDS: APIXABAN 5MG TABLET 10 MG PO ×2 (08:51→20:47)
[2023-05-24] MEDS: FOLIC ACID 1MG TABLET 1 MG PO (08:51)
[2023-05-24] MEDS: PANTOPRAZOLE 40MG TABLET 40 MG PO (08:51)
[2023-05-24] MEDS: CITALOPRAM 40MG TABLET 40 MG PO (08:51)
[2023-05-24] MEDS: NICOTINE 21MG/24HR PATCH 21 MG TD (08:57)
--- NOTE | 2023-05-24 09:17 | PC.NURSE ---
Addendum entered by Tonya Bolden RN 05/24/23 15:43: 1510 pt placed on 1 lpm r/t room air sats of 89% while sleeping. Addendum entered by Tonya Bolden RN 05/24/23 11:01: pt placed on room air at 1040 per Anna in [place]. nasal cannula remains in place at this time, but supplemental o2 has been turned off. Addendum entered by Tonya Bolden RN 05/24/23 09:27: pt o2 decreased to 1lpm at 0925 r/t o2 sats 98% on 3lpm Original Note: 0843 at start of assessment, pt o2 noted to be at 1 lpm, pt sitting on side of bed. the longer staff interacted with pt, the more anxious he began to appear. pt pleth on oxygen monitor noted to be poor read, but sats noted to be in the 80's. pt tachypneic in the upper 30's. wheezes noted throughout. Dr King at bedside at approx same time, increased pt o2 to 3lpm and requested pt get a breathing treatment stat. 0845 requested breathing treatment from Mary Carmen in [place] at this time.
--- NOTE | 2023-05-24 09:59 | P.PN_ITS ---
Subjective *Date: 05/24/23 *Time: 12:26 Interval history: No acute respiratory vents overnight. Patient denies any new respiratory complaints. Pulmonology Exam Inpatient Vital signs and Labs for Last 24 Hours: Temp Pulse Resp BP Pulse Ox O2 Del Method O2 Flow Rate 97.6 F 112 H 28 H 138/82 98 Nasal Cannula 1 05/24/23 08:00 05/24/23 08:54 05/24/23 08:00 05/24/23 08:00 05/24/23 09:20 05/24/23 09:33 05/24/23 09:33 FiO2 30 05/23/23 06:49 Laboratory Results - last 24 hr 05/23/23 10:19: VBG pH 7.48 H, VBG pCO2 40.8, VBG pO2 66.0 H, VBG HCO3 29.4, VBG Total CO2 30.7 H, VBG O2 Saturation 94.5 H, VBG Base Excess 5.9 H 05/23/23 10:35: D-Dimer 0.43 05/23/23 18:20: Sodium 133 L, Potassium 4.0, Chloride 92 L, Carbon Dioxide 40 H, Anion Gap 5.0, BUN 33 H D, Creatinine 1.60 H, Estimated Creat Clear 59, Estimated GFR 43 L, Est GFR ( Amer) 52 L, Glucose 87 D, Calcium 9.1 05/24/23 05:36: WBC 7.0, RBC 3.89 L, Hgb 13.2 L, Hct 40.2 L, MCV 103.4 H, MCH 33.9 H, MCHC 32.8, RDW 14.8, Plt Count 221, MPV 7.9, Neut % (Auto) 75.6, Lymph % (Auto) 15.3, [place] % (Auto) 8.7, Eos % (Auto) 0.2, Baso % (Auto) 0.2, Neut # (Auto) 5.3, Lymph # (Auto) 1.1, [place] # (Auto) 0.6, Eos # (Auto) 0.0, Baso # (Auto) 0.0, Sodium 133 L, Potassium 3.9, Chloride 95 L, Carbon Dioxide 41 H*, Anion Gap 0.9 L, BUN 31 H, Creatinine 1.30 H, Estimated Creat Clear 72, Estimated GFR 55 L, Est GFR ( Amer) 67 D, Glucose 96, Calcium 8.9 I & O for Labs for Last 24 Hours: Intake & Output 05/21/23 05/22/23 05/23/23 05/24/23 23:59 23:59 23:59 23:59 Intake Total 989.500 / 574.131 4083.178 / 2649.178 100 / 100 Output Total 400 / 400 1115 / 1115 700 / 700 Balance 589.500 / 721.692 3647.178 / 1534.178 -600 / -600 Weight 203 lb 205 lb 1 oz 204 lb 12.8 oz Microbiology Reports for the Last 24 Hours: Microbiology 05/22/23 10:12 Blood Blood Culture - Preliminary 05/22/23 15:45 Nose - Nasal MRSA Culture - Final Constitutional: Present moderate distress Head: Present normocephalic and atraumatic ENT: Present normal exam, normal oropharynx and mucous membranes moist Neck: Present normal inspection and full ROM Respiratory: Present decreased breath sounds, prolonged expiratory phase, r espiratory distress, wheezes and able to speak in complete sentences Cardiac: Present S1/S2, Tachycardia and radial pulses present GI: Present soft and distention; Absent tenderness or guarding Skin: Present intact; Absent cyanosis or jaundice Neuro: Present alert, awake and oriented x 3 Extremities: Present normal inspection; Absent clubbing or cyanosis Psychiatric: Present normal affect and cooperative Assessment and Plan *Assessment and plan (1) COPD exacerbation: Status: Acute Category: Medical Code(s): J44.1 - Chronic obstructive pulmonary disease with (acute) exacerbation (2) Acute respiratory failure with hypoxia and hypercarbia: Status: Acute Category: Medical Code(s): J96.01 - Acute respiratory failure with hypoxia; J96.02 - Acute respiratory failure with hypercapnia (3) Pulmonary embolism: Status: Acute Qualifiers: Acute cor pulmonale presence: without acute cor pulmonale Chronicity: acute Pulmonary embolism type: other Qualified Code(s): I26.99 - Other pulmonary embolism without acute cor pulmonale Category: Medical Code(s): I26.99 - Other pulmonary embolism without acute cor pulmonale Plan Mr. Flores is a 67-year-old male current smoker-30 PPD for COPD, previously seen in the hospital in August 2022 in April 2023 for COPD exacerbation presented to the ER with worsening respiratory distress, found to be in hypoxic hypercarbic respiratory failure needing BiPAP therapy and pulmonary was called for further evaluation and management. ABG upon admission severe hypercarbic respiratory failure. Chest x-ray stable from prior with no dense consolidation/airspace disease. Afebrile. Hemodynami arpita stable. No acute evidence of leukocytosis. COVID-19 and flu PCR negative upon admission. On initial examination, severe resp distress, Auscultation bilateral diffuse wheezing decreased breath sounds. CTA nonoccluding pulmonary emboli in the left lower lobe with distal filling noted. Less likely contributing to current hypoxia/increasing oxygen requirements. No evidence of RV strain. D-dimer within normal limits at 0.43. Lower extremity venous Doppler negative for DVT Interval Update: No acute respiratory vents overnight. Stable oxygen requirements. Nasal MRSA PCR negative. Repeat ABG did not show any evidence of hypercarbic respiratory failure atient was off BiPAP on nasal cannula. Blood cultures x 1 both resulted positive for gram-positive cocci, pending further testing. Antibiotics were escalated to vancomycin and cefepime. Repeat blood cultures today. Patient Plan: -Oxygen supplementation via nasal cannula as needed to maintain O2 saturation go al of 90 to 95%. Continue current antibiotic continue vancomycin and cefepime pending repeat blood culture results. DuoNebs every 4 hours along with Pulmicort every 12 scheduled Continue anticoagulation for the noted PE for at least 3 months. Continue methylprednisone 40mg IV daily. The concerning right lower lobe lesion on his most recent CT on Apr 2023 appeared to be improving on today's chest x-ray, prior to prior, and a CTA performed yesterday for near complete resolution but no need for further follow- up with CT imaging at this point of time.
[2023-05-24] MEDS: BISOPROLOL 5MG TABLET 5 MG PO (11:38)
[2023-05-24] MEDS: AMLODIPINE 10MG TABLET 10 MG PO (11:38)
--- NOTE | 2023-05-24 11:53 | PC.NURSE ---
1150 pt assisted with urinal by SRNA. pt noted to by tachycardic and tachypneic following use of urinal. pt unable to be redirected on slow deep breaths, attempted to reposition pt in bed and on back. pt refused to lay on back or sit up in bed. pt did allow for assistance to be pulled up in bed, but wouldnt accept any further assistance or advice.
[2023-05-24] MEDS: LEVALBUTEROL 1.25MG/3ML NEB 1.25 MG IH (12:05)
--- NOTE | 2023-05-24 13:16 | P.PN_ITS ---
Subjective *Date: 05/24/23 *Time: 14:00 Interval history: Anxious and dyspneic on morning rounds. Afebrile. Wore 1 L oxygen yesterday through the day, increased to 4 L this morning. Labs showing improvement. Tolerating p.o. intake. No nausea or vomiting. Blood culture returned positive overnight for gram-positive cocci. Antibiotics broadened. Medical Exam Vital signs and Labs for Last 24 Hours: Vital Signs Temp Pulse Pulse Resp BP Pulse Ox O2 Del Method 05/24/23 13:00 Nasal Cannula 05/24/23 12:17 109 H 28 H 118/83 95 Room Air 05/24/23 11:40 Room Air 05/24/23 09:33 Nasal Cannula 05/24/23 08:30 87 94 L Nasal Cannula 05/24/23 09:20 98 Nasal Cannula 05/24/23 08:54 112 H 05/24/23 08:54 110 H 05/24/23 08:00 85 05/24/23 08:00 97.6 F 91 H 28 H 138/82 96 Nasal Cannula 05/24/23 06:11 93 H 05/24/23 06:11 92 H 05/24/23 06:11 97 Nasal Cannula 05/24/23 04:00 93 H 05/24/23 04:00 97.6 F 89 26 H 128/73 96 Nasal Cannula 05/24/23 03:55 99 H 05/24/23 02:01 95 H 05/24/23 02:01 79 05/24/23 00:00 97 H 05/24/23 00:00 97 H 05/24/23 00:00 97.5 F L 94 H 26 H 130/92 H 96 Nasal Cannula 05/23/23 21:43 108 H 05/23/23 21:43 105 H 05/23/23 21:43 97 Nasal Cannula 05/23/23 21:00 105 H 05/23/23 20:00 95 Nasal Cannula 05/23/23 20:00 106 H 30 H 123/93 H 95 Nasal Cannula 05/23/23 20:00 106 H 05/23/23 18:58 Nasal Cannula 05/23/23 17:00 Nasal Cannula 05/23/23 16:00 110 H 05/23/23 18:12 114 H 05/23/23 18:12 110 H 05/23/23 16:08 98.2 F 02/20/24 16:00 102 H 26 H 146/70 H 96 Nasal Cannula 05/23/23 15:00 Nasal Cannula 05/23/23 13:51 105 H 05/23/23 13:51 110 H O2 Flow Rate 05/24/23 13:00 2 05/24/23 12:17 05/24/23 11:40 05/24/23 09:33 1 05/24/23 08:30 1 05/24/23 09:20 3 05/24/23 08:54 05/24/23 08:54 05/24/23 08:00 05/24/23 08:00 1 05/24/23 06:11 05/24/23 06:11 05/24/23 06:11 1 05/24/23 04:00 05/24/23 04:00 05/24/23 03:55 05/24/23 02:01 05/24/23 02:01 05/24/23 00:00 05/24/23 00:00 05/24/23 00:00 05/23/23 21:43 05/23/23 21:43 05/23/23 21:43 1.5 05/23/23 21:00 05/23/23 20:00 1 05/23/23 20:00 1 05/23/23 20:00 05/23/23 18:58 2 05/23/23 17:00 2 05/23/23 16:00 05/23/23 18:12 05/23/23 18:12 05/23/23 16:08 05/23/23 16:00 2 05/23/23 15:00 2 05/23/23 13:51 05/23/23 13:51 Intake and Output 05/23/23 05/24/23 05/24/23 23:59 07:59 15:59 Intake Total 420 / 2649.178 100 / 200 100 / 200 Output Total 175 / 1115 450 / 850 400 / 850 Balance 245 / 1534.178 -350 / -650 -300 / -650 Intake: Intake, Oral Amount 420 / 2220 Intake, Total IV Amount 100 / 200 100 / 200 Cefepime HCl 2 gm In 0.9 % 100 / 200 100 / 200 Sodium Chloride 100 ml @ 200 mls/hr IV Q8H [facility] Rx#:[id number] Output: Output, Urine Amount 175 / 1115 450 / 850 400 / 850 Other: Number of Unmeasured Voids 1 0 Number of Bowel Movements 1 Weight 92.896 kg 92.89 kg Patient Weight 05/24/23 23:59 Weight 92.89 kg Laboratory Results - last 24 hr 05/23/23 18:20: Sodium 133 L, Potassium 4.0, Chloride 92 L, Carbon Dioxide 40 H, Anion Gap 5.0, BUN 33 H D, Creatinine 1.60 H, Estimated Creat Clear 59, Estimated GFR 43 L, Est GFR ( Amer) 52 L, Glucose 87 D, Calcium 9.1 05/24/23 05:36: WBC 7.0, RBC 3.89 L, Hgb 13.2 L, Hct 40.2 L, MCV 103.4 H, MCH 33.9 H, MCHC 32.8, RDW 14.8, Plt Count 221, MPV 7.9, Neut % (Auto) 75.6, Lymph % (Auto) 15.3, [place] % (Auto) 8.7, Eos % (Auto) 0.2, Baso % (Auto) 0.2, Neut # (Auto) 5.3, Lymph # (Auto) 1.1, [place] # (Auto) 0.6, Eos # (Auto) 0.0, Baso # (Auto) 0.0, Sodium 133 L, Potassium 3.9, Chloride 95 L, Carbon Dioxide 41 H*, Anion Gap 0.9 L, BUN 31 H, Creatinine 1.30 H, Estimated Creat Clear 72, Estimated GFR 55 L, Est GFR ( Amer) 67 D, Glucose 96, Calcium 8.9 I & O for Labs for Last 24 Hours: Intake & Output 05/21/23 05/22/23 05/23/23 05/24/23 23:59 23:59 23:59 23:59 Intake Total 989.500 / 885.722 1601.178 / 2649.178 200 / 200 Output Total 400 / 400 1115 / 1115 850 / 850 Balance 589.500 / 603.037 0823.178 / 1534.178 -650 / -650 Weight 92.079 kg 93.015 kg 92.89 kg Microbiology Reports for the Last 24 Hours: Microbiology 05/22/23 10:12 Blood Blood Culture - Preliminary 05/22/23 15:45 Nose - Nasal MRSA Culture - Final Constitutional: Present mild distress, average body habitus and chronically ill appearing Head: Present atraumatic Respiratory: Present prolonged expiratory phase, wheezes (diffuse), distant breath sounds and diminished air movement; Absent rhonchi or crackles Comment:: barrel chested Cardiac: Present Regular Rhythm and Tachycardia GI: Present soft and normal bowel sounds; Absent distention or tenderness Extremities: Present normal inspection and full ROM Skin: Present intact; Absent erythema Neuro: Present Grossly Intact, alert, awake, oriented x 3 and moves all extremities Assessment and Plan *Assessment and plan (1) Acute respiratory failure with hypoxia and hypercarbia: Status: Acute Category: Medical Code(s): J96.01 - Acute respiratory failure with hypoxia; J96.02 - Acute respiratory failure with hypercapnia (2) COPD exacerbation: Status: Acute Category: Medical Code(s): J44.1 - Chronic obstructive pulmonary disease with (acute) exacerbation (3) CAD in [place] artery: Status: Acute Category: Medical Code(s): I25.10 - Atherosclerotic heart disease of [place] coronary artery without angina pectoris (4) Coronary artery calcification seen on CAT scan: Status: Acute Category: Medical Code(s): I25.10 - Atherosclerotic heart disease of [place] coronary artery without angina pectoris (5) Acute CHF: Status: Acute Category: Medical Code(s): I50.9 - Heart failure, unspecified (6) Anxiety: Status: Acute Category: Medical Code(s): F41.9 - Anxiety disorder, unspecified (7) Pulmonary embolism: Status: Acute Qualifiers: Acute cor pulmonale presence: without acute cor pulmonale Chronicity: acute Pulmonary embolism type: other Qualified Code(s): I26.99 - Other pulmonary embolism without acute cor pulmonale Category: Medical Code(s): I26.99 - Other pulmonary embolism without acute cor pulmonale Plan Patient is a 67-year-old male who presented to hospital due to shortness of breath. Patient has past medical history of CAD CHF, hypertension hyperlipidemia, diabetes mellitus, COPD on 4 L at baseline. According to the patient he has been having shortness of breath for past couple days, it has been getting worse, he was found hypoxic on arrival to the hospital he was a started on BiPAP. Patient otherwise denied fever chills diarrhea constipation dysuria or chest pain. In the emergency department patient was also found to be hypotensive and was a started on Levophed, was found to be hypercapnic respiratory failure was started on BiPAP and was admitted for further management. Symptoms improving. Patient on nasal cannula oxygen. Continues to have significant dyspnea. Treating symptomatology. Stable off pressors for 24 hours. Continues to require inpatient management. Anticipate discharge tomorrow. Problems addressed as follows: Shortness of breath, acute hypoxic hypercapnic respiratory failure COPD exacerbation Suspect CHF exacerbation -Weaning oxygen. Tolerating 1 L on morning rounds. Wears up to 4 L at home. Continues to smoke at home. -Continue DuoNebs every 4 hours scheduled, continue Pulmicort every 12 hours scheduled -Antibiotics broadened back to vancomycin and cefepime in light of positive blood culture. Will monitor cultures for another 24 hours, concerned that it is a contaminant. If consistent with contaminant tomorrow, transition back to Levaquin to complete antibiotic course and anticipate discharge home tomorrow. -Discussed case with pulmonology; recommend continuing anticoagulation. Wean oxygen as tolerated. - Continue anticoagulation for the noted PE for at least 3 months. Follow-up with D-dimer and lower extremity venous Doppler - Trelegy inhaler daily RUBENS: improved. Creatinine 1.3, BUN 31. Repeat CBC, CMP, magnesium ordered for tomorrow. White cell count normal at 7.0. Anxiety: Complicates patient's dyspnea. Continue citalopram as formulary conversion for his home Lexapro. Will add hydroxyzine 25 mg every 6 hours as needed. Monitor for improvement and dyspnea. Hypertension: Blood pressure has been stable for over 24 hours off pressors. Resume bisoprolol 5 mg daily, amlodipine 10 mg daily. Holding lisinopril-HCTZ at this time Nicotine patch daily as needed for tobacco dependence Pantoprazole 40 mg daily Full code Cardiac diet Eliquis 10 mg twice daily
--- NOTE | 2023-05-24 14:54 | HMH.PTEV ---
Physical Therapy Evaluation Rehab PT IP Evaluation Start: 05/24/23 10:21 Freq: ONCE Status: Active Protocol: Document 05/24/23 14:48 VIBHA (Rec: 05/24/23 14:54 PHOBALDO [id number]) Subjective/History History History 67 yowm adm to [facility] with CHF exac. He has PMH of CAD CHF, hypertension hyperlipidemia, diabetes mellitus, COPD on 4 L at baseline. He reports he lives with his SO and her family. He reports no steps to enter the home and he is generally independent with all mobility without AD at baseline. Subjective Subjective Currently oxygen on 1 L/min via NC with O2 sat at rest at 99%. Pt agrees to mobility assessment. As soon as I move I'm going to be real short of breath though. New diagnosis of cancer in past 12 No months? Rehab PT IP Eval Objective Appearance Patient Behavior Appropriate Patient Orientation Person,Place,Time Difficulty following instructions none Speech Pattern Clear Ambulation Patient Able to Ambulate Yes Ambulation Observation IP General Gait Pattern Observation Wide Based Gait,Shuffling Step Ambulation Distance (feet) 5 Ambulation Assistive Device None Ambulation Ability Supervision/Stand by Balance Ability to Arise Able, uses arms to help Sitting Balance Steady, safe Standing Balance Steady, wide stance Dynamic Sitting Balance Ability Good Dynamic Standing Balance Ability Good Transfers Bed Transfer Ability Supervision/Stand by Chair Transfer Ability Supervision/Stand by Sit to Stand Bed Transfer Ability Supervision/Stand by Sit to Stand Chair Transfer Ability Supervision/Stand by Rehab PT IP prob,goals,plan Problems Date of Evaluation: 05/24/23 Discharge Plan PT Discharge Plan Pt appears to be at baseline for all mobility at this time. He did have increased SOA with all exertion, but oxygen saturations quickly improved when resting. He is appropriate to return home once medically stable for d/c. Eval Complexity Eval Charge Codes 56695 - High Complexity PHYSICIAN CERTIFICATION: I certify the specified therapy services for Glynn Flores are required, authorized, and reviewed every 30 days.
--- NOTE | 2023-05-24 15:02 | HMH.OTEV ---
OT Inpatient Evaluation Rehab OT IP Evaluation Start: 05/24/23 10:21 Freq: ONCE Status: Active Protocol: [facility]24/23 14[facility] (Rec: 05/24/23 15:02 [facility] [id number]) Rehab OT IP Assessment Subjective History Pt oriented x 3 on arrival. Pt agreeable to engage in therapy evaluation. Pt admitted on 05/22/23 due to shortness of breath and CHF exacerbation. History and Physical: Patient is a 67-year-old male who presented to hospital due to shortness of breath. Patient has past medical history of CAD CHF, hypertension hyperlipidemia, diabetes mellitus, COPD on 4 L at baseline. According to the patient he has been having shortness of breath for past couple days, it has been getting worse, he was found hypoxic on arrival to the hospital he was a started on BiPAP. Patient otherwise denied fever chills diarrhea constipation dysuria or chest pain. In the emergency department patient was also found to be hypotensive and was a started on Levophed, was found to be hypercapnic respiratory failure was started on BiPAP and was admitted for further management. He endorses productive cough with yellow phlegm production. Subjective I can move fine, I just can't breathe. Pt reports prior to being in the hospital, he lived at home with his fiance and her grandchildren. Pt claims normally he is independent with all ADLs. He does wear o2 at all times. Pt does not require any type of AE during functional transfers. Pt is dependent upon fiance to complete IADLs. Objective Patient Orientation Person,Place,Birthday Right Upper Extremity Gross ROM WFL Left Upper Extremity Gross ROM WFL Bed Mobility bed mobility-scooting,bed mobility - supine/sit Assist Level Supervision/Stand by Transfer Training Sit/Stand Transfer Assist Level Supervision/Stand by Lower Body Dressing Ability Standby Assistance Rehab OT IP prob,goals,plan Problems Date of Evaluation: 05/24/23 Rehab Potential Rehab Potential Innapropriate for Skilled Therapy Discharge Plan OT Discharge Plan Pt appears to be at his baseline with functional transfers and ADL independence . Pt can return home with fiance once he is medically stable per medical doctor. Eval Complexity Eval Charge Codes 94133 - Low Complexity PHYSICIAN CERTIFICATION: I certify the specified therapy services for Glynn Schmid Soard are required, authorized, and reviewed every 30 days.
--- NOTE | 2023-05-24 17:32 | PC.NURSE ---
Pt sat self up on side of bed to attempt to eat supper. pt noted to be tachycardic in the 110's with pvc, tachypneic in the 30's. lung sounds contain wheezes throughout and pt sounds tight . RT called for breathing treatment at 1730. pt appears to be anxious and said he wanted his o2 turned up. pt o2 increased to 1lpm. pt had previously been on room air with o2 sats in the low 90's. pt is a/o x 4, urine is clear and yellow. nad noted.
[2023-05-24] MEDS: hydrOXYzine pamoate 25MG CAPSULE 25 MG PO (18:24)
[2023-05-24] MEDS: ATORVASTATIN 40MG TABLET 40 MG PO (20:47)
[2023-05-24] MEDS: MELATONIN 5MG TABLET 10 MG PO (20:47)
[2023-05-25] VITALS (15 sets, daily range): BP systolic 94–135; BP diastolic 55–83; PULSE 65–97; RESP 16–30; TEMP 36.4–36.7; O2SAT 91–100; BMI 29.1
[2023-05-25] MEDS: IPRATROPIUM/ALBUTEROL 3 ML NEB IH ×3 (01:27→17:36)
[2023-05-25] MEDS: BUDESONIDE 0.5MG/2ML NEB 0.5 MG IH (06:11)
[2023-05-25 06:41] LABS: Basophils % 0.2 % (0.1-2.0); Eosinophils % 0.7 % (0.1-12.0); Hematocrit 43.2 % (42.0-52.0); Hemoglobin 13.4 g/dL (14.1-18.0); Lymphocytes # 1.2 K/mm3 (0.7-4.5); Lymphocytes % 20.3 % (10-50); Mean Corpuscular Hemoglobin 33.8 pg (27.0-31.2); Mean Platelet Volume 7.8 fl (7.4-10.4); Monocytes # 0.4 K/mm3 (0.1-1.0); Monocytes % 7.2 % (1.7-9.3); Neutrophils # 4.3 K/mm3 (1.8-7.8); Neutrophils % 71.6 % (37.0-80.0); Platelet Count 208 K/mm3 (142-424); Red Blood Count 3.97 M/mm3 (4.60-6.20); Red Cell Distribution Width 14.7 % (11.5-17.5); White Blood Count 6.1 K/mm3 (4.8-10.8)
[2023-05-25 06:46] LABS: Chloride 99 mmol/L (98-107); Potassium 4.3 mmoL/L (3.5-5.1); Sodium 138 mmol/L (136-145)
[2023-05-25 06:49] LABS: Blood Urea Nitrogen 25 mg/dl (9-20); Creatinine Clearance Estimated 78 mL/min (50-200); Estimated Glomerular Filt Rate 60 ml/min (>60); GFR (African American) 73 ML/MIN (>60); Glucose 97 mg/dl (74-100)
[2023-05-25 07:10] LABS: Anion Gap 1.3 mEq/L (5-15); Carbon Dioxide 42 mmol/L (22.0-30.0)
[2023-05-25] MEDS: CEFEPIME HCL 2 GM in 0.9 % SODIUM CHLORIDE 100 ML IV (08:28)
[2023-05-25] MEDS: CITALOPRAM 40MG TABLET 40 MG PO (08:29)
[2023-05-25] MEDS: METHYLPREDNISOLONE SOD SUCC 40MG VIAL 40 MG IV (08:29)
[2023-05-25] MEDS: BISOPROLOL 5MG TABLET 5 MG PO (08:29)
[2023-05-25] MEDS: PANTOPRAZOLE 40MG TABLET 40 MG PO (08:29)
[2023-05-25] MEDS: hydrOXYzine pamoate 25MG CAPSULE 25 MG PO ×2 (08:29→17:08)
[2023-05-25] MEDS: NICOTINE 21MG/24HR PATCH 21 MG TD (08:30)
[2023-05-25] MEDS: FOLIC ACID 1MG TABLET 1 MG PO (08:30)
[2023-05-25] MEDS: AMLODIPINE 10MG TABLET 10 MG PO (08:30)
[2023-05-25] MEDS: APIXABAN 5MG TABLET 10 MG PO ×2 (08:30→20:16)
--- NOTE | 2023-05-25 10:09 | P.PN_ITS ---
Subjective *Date: 05/25/23 *Time: 12:31 Interval history: No acute respiratory events overnight. Patient denies any new respiratory complaints. Pulmonology Exam Inpatient Vital signs and Labs for Last 24 Hours: Temp Pulse Resp BP Pulse Ox O2 Del Method O2 Flow Rate 97.9 F 97 H 28 H 114/65 96 Nasal Cannula 2 05/25/23 07:44 05/25/23 08:15 05/25/23 07:44 05/25/23 07:44 05/25/23 08:15 05/25/23 09:48 05/25/23 09:48 FiO2 30 05/23/23 06:49 Laboratory Results - last 24 hr 05/25/23 06:17: WBC 6.1, RBC 3.97 L, Hgb 13.4 L, Hct 43.2, MCV 109.0 H, MCH 33.8 H, MCHC 31.0 L, RDW 14.7, Plt Count 208, MPV 7.8, Neut % (Auto) 71.6, Lymph % (Auto) 20.3, [place] % (Auto) 7.2, Eos % (Auto) 0.7, Baso % (Auto) 0.2, Neut # (Auto) 4.3, Lymph # (Auto) 1.2, [place] # (Auto) 0.4, Eos # (Auto) 0.0, Baso # (Auto) 0.0, Sodium 138, Potassium 4.3, Chloride 99, Carbon Dioxide 42 H*, Anion Gap 1.3 L, BUN 25 H, Creatinine 1.20, Estimated Creat Clear 78, Estimated GFR 60, Est GFR ( Amer) 73, Glucose 97, Calcium 9.0 I & O for Labs for Last 24 Hours: Intake & Output 05/22/23 05/23/23 05/24/23 05/25/23 23:59 23:59 23:59 23:59 Intake Total 989.500 / 036.213 1123.178 / 2649.178 840 / 940 220 / 220 Output Total 400 / 400 1115 / 1115 1200 / 1500 550 / 550 Balance 589.500 / 679.544 1330.178 / 1534.178 -360 / -560 -330 / -330 Weight 203 lb 205 lb 1 oz 204 lb 12.598 oz 203 lb 11.2 oz Microbiology Reports for the Last 24 Hours: Microbiology 05/22/23 10:12 Blood Blood Culture - Preliminary 05/22/23 10:12 Blood Blood Culture - Preliminary Constitutional: Present moderate distress Head: Present normocephalic and atraumatic ENT: Present normal exam, normal oropharynx and mucous membranes moist Neck: Present normal inspection and full ROM Respiratory: Present decreased breath sounds, prolonged expiratory phase, respiratory distress, wheezes and able to speak in complete sentences Cardiac: Present S1/S2, Tachycardia and radial pulses present GI: Present soft and distention; Absent tenderness or guarding Skin: Present intact; Absent cyanosis or jaundice Neuro: Present alert, awake and oriented x 3 Extremities: Present normal inspection; Absent clubbing or cyanosis Psychiatric: Present normal affect and cooperative Assessment and Plan *Assessment and plan (1) COPD exacerbation: Status: Acute Category: Medical Code(s): J44.1 - Chronic obstructive pulmonary disease with (acute) exacerbation (2) Acute respiratory failure with hypoxia and hypercarbia: Status: Acute Category: Medical Code(s): J96.01 - Acute respiratory failure with hypoxia; J96.02 - Acute respiratory failure with hypercapnia (3) Pulmonary embolism: Status: Acute Qualifiers: Acute cor pulmonale presence: without acute cor pulmonale Chronicity: acute Pulmonary embolism type: other Qualified Code(s): I26.99 - Other pulmonary embolism without acute cor pulmonale Category: Medical Code(s): I26.99 - Other pulmonary embolism without acute cor pulmonale Plan Mr. Flores is a 67-year-old male current smoker-30 PPD for COPD, previously seen in the hospital in August 2022 in April 2023 for COPD exacerbation presented to the ER with worsening respiratory distress, found to be in hypoxic hypercarbic respiratory failure needing BiPAP therapy and pulmonary was called for further evaluation and management. ABG upon admission severe hypercarbic respiratory failure. Chest x-ray stable from prior with no dense consolidation/airspace disease. Afebrile. Hemodynamically stable. No acute evidence of leukocytosis. COVID-19 and flu PCR negative upon admission. On initial examination, severe resp distress, Auscultation bilateral diffuse wheezing decreased breath sounds. CTA nonoccluding pulmonary emboli in the left lower lobe with distal filling noted. Less likely contributing to current hypoxia/increasing oxygen requirements. No evidence of RV strain. D-dimer within normal limits at 0.43. Lower extremity venous Doppler negative for DVT. Repeat ABG did not show any evidence of hypercarbic respiratory failure atient was off BiPAP on nasal cannula. Nasal MRSA PCR negative. Blood cultures from 1 bottle growing Streptococcus oralis. Repeat cultures pending. Given clinical stability improving respiratory status the plan was made to discharge the patient on levofloxacin with a close follow-up and repeat blood cultures. Interval Update: No acute respiratory vents overnight. Stable oxygen requirements. Stable respiratory symptoms. Patient Plan: -Oxygen supplementation via nasal cannula as needed to maintain O2 saturation goal of 90 to 95%. Patient intermittent 1 to 2 L saturating 96 to 98%. Counseled regarding the need to keep his saturations between 90 and 95 not more than 95%. -Management of patient's anxiety as per primary team. Antibiotics can be weaned to levofloxacin to complete a total of 10-day course pending blood culture results and close follow-up. Trelegy 100 inhaler along with DuoNebs every 6 hours on as-needed basis Continue anticoagulation for the noted PE for at least 3 months. Wean steroids to prednisone to complete a total of 5-day course since admission Thank you for involving pulmonary in this patient care. Will follow the patient in pulmonary clinic in 5 to 7 days post discharge. The concerning right lower lobe lesion on his most recent CT on Apr 2023 appeared to be improving on today's chest x-ray, prior to prior, and a CTA performed yesterday for near complete resolution but no need for further follow- up with CT imaging at this point of time.
--- NOTE | 2023-05-25 13:09 | P.PN_ITS ---
Subjective *Date: 05/25/23 *Time: 13:31 Interval history: Still having diarrhea shortness of breath however O2 sats remaining in the mid to high 90s. Appears to be having some anxiety episodes. Responds well to hydroxyzine. Afebrile. No nausea or vomiting. Tolerating good p.o. intake. Medical Exam Vital signs and Labs for Last 24 Hours: Vital Signs Temp Pulse Pulse Resp BP Pulse Ox O2 Del Method 05/25/23 11:24 Nasal Cannula 05/25/23 11:16 98.0 F 70 28 H 134/83 94 L Nasal Cannula 05/25/23 09:48 Nasal Cannula 05/25/23 08:15 97 H 96 Nasal Cannula 05/25/23 06:10 73 05/25/23 06:10 71 05/25/23 06:10 94 L Nasal Cannula 05/25/23 08:00 95 H 05/25/23 07:44 97.9 F 72 28 H 114/65 97 Nasal Cannula 05/25/23 07:42 98 Nasal Cannula 05/25/23 04:00 71 05/25/23 04:00 98.1 F 81 16 135/78 91 L Nasal Cannula 05/25/23 04:00 67 05/25/23 01:27 65 05/25/23 01:27 69 05/24/23 22:05 99 Nasal Cannula 05/25/23 00:00 66 05/25/23 00:00 97.6 F 68 26 H 94/55 L 98 Nasal Cannula 05/25/23 00:00 69 05/24/23 22:50 Nasal Cannula 05/24/23 20:00 73 05/24/23 22:11 79 05/24/23 22:11 82 05/24/23 21:00 Nasal Cannula 05/24/23 20:00 Room Air 05/24/23 19:47 97.7 F 73 26 H 103/53 L 99 Nasal Cannula 05/24/23 18:38 Nasal Cannula 05/24/23 16:00 70 05/24/23 17:45 83 05/24/23 17:45 89 05/24/23 17:12 Room Air 05/24/23 16:36 94 L Room Air 05/24/23 16:34 98.0 F 76 31 H 130/79 95 Room Air 05/24/23 14:55 Room Air 05/24/23 14:21 110 H 05/24/23 14:21 114 H 05/24/23 13:49 94 L Room Air O2 Flow Rate 05/25/23 11:24 2 05/25/23 11:16 2 05/25/23 09:48 2 05/25/23 08:15 2 05/25/23 06:10 05/25/23 06:10 05/25/23 06:10 2 05/25/23 08:00 05/25/23 07:44 2 05/25/23 07:42 2 05/25/23 04:00 05/25/23 04:00 1 05/25/23 04:00 05/25/23 01:27 05/25/23 01:27 05/24/23 22:05 1 05/25/23 00:00 05/25/23 00:00 1 05/25/23 00:00 05/24/23 22:50 1 05/24/23 20:00 05/24/23 22:11 05/24/23 22:11 05/24/23 21:00 2 05/24/23 20:00 05/24/23 19:47 05/24/23 18:38 2 05/24/23 16:00 05/24/23 17:45 05/24/23 17:45 05/24/23 17:12 05/24/23 16:36 05/24/23 16:34 05/24/23 14:55 05/24/23 14:21 05/24/23 14:21 05/24/23 13:49 Intake and Output 05/24/23 05/25/23 05/25/23 23:59 07:59 15:59 Intake Total 270 / 940 220 / 460 240 / 460 Output Total 150 / 1500 550 / 700 150 / 700 Balance 120 / -560 -330 / -240 90 / -240 Intake: Intake, Oral Amount 270 / 540 120 / 360 240 / 360 Intake, Total IV Amount 100 / 100 Cefepime HCl 2 gm In 0.9 % 100 / 100 Sodium Chloride 100 ml @ 200 mls/hr IV Q8H [facility] Rx#:[id number] Output: Output, Urine Amount 150 / 1500 550 / 700 150 / 700 Other: Number of Unmeasured Voids 0 0 0 Number of Bowel Movements 0 Weight 92.397 kg Patient Weight 05/25/23 23:59 Weight 92.397 kg Laboratory Results - last 24 hr 05/25/23 06:17: WBC 6.1, RBC 3.97 L, Hgb 13.4 L, Hct 43.2, MCV 109.0 H, MCH 33.8 H, MCHC 31.0 L, RDW 14.7, Plt Count 208, MPV 7.8, Neut % (Auto) 71.6, Lymph % (Auto) 20.3, [place] % (Auto) 7.2, Eos % (Auto) 0.7, Baso % (Auto) 0.2, Neut # (Auto) 4.3, Lymph # (Auto) 1.2, [place] # (Auto) 0.4, Eos # (Auto) 0.0, Baso # (Auto) 0.0, Sodium 138, Potassium 4.3, Chloride 99, Carbon Dioxide 42 H*, Anion Gap 1.3 L, BUN 25 H, Creatinine 1.20, Estimated Creat Clear 78, Estimated GFR 60, Est GFR ( Amer) 73, Glucose 97, Calcium 9.0 I & O for Labs for Last 24 Hours: Intake & Output 05/22/23 05/23/23 05/24/23 05/25/23 23:59 23:59 23:59 23:59 Intake Total 989.500 / 323.941 3387.178 / 2649.178 840 / 940 460 / 460 Output Total 400 / 400 1115 / 1115 1200 / 1500 700 / 700 Balance 589.500 / 355.129 7721.178 / 1534.178 -360 / -560 -240 / -240 Weight 92.079 kg 93.015 kg 92.89 kg 92.397 kg Microbiology Reports for the Last 24 Hours: Microbiology 05/22/23 10:12 Blood Blood Culture - Preliminary 05/22/23 10:12 Blood Blood Culture - Preliminary Constitutional: Present mild distress, average body habitus and chronically ill appearing Head: Present atraumatic Respiratory: Present accessory muscle use, prolonged expiratory phase, wheezes (diffuse), distant breath sounds and diminished air movement; Absent rhonchi or crackles Comment:: barrel chested Cardiac: Present Regular Rhythm and Tachycardia GI: Present soft and normal bowel sounds; Absent distention or tenderness Extremities: Present normal inspection and full ROM Skin: Present intact; Absent erythema Neuro: Present Grossly Intact, alert, awake, oriented x 3 and moves all extremities Assessment and Plan *Assessment and plan (1) Acute respiratory failure with hypoxia and hypercarbia: Status: Acute Category: Medical Code(s): J96.01 - Acute respiratory failure with hypoxia; J96.02 - Acute respiratory failure with hypercapnia (2) COPD exacerbation: Status: Acute Category: Medical Code(s): J44.1 - Chronic obstructive pulmonary disease with (acute) exacerbation (3) CAD in [place] artery: Status: Acute Category: Medical Code(s): I25.10 - Atherosclerotic heart disease of [place] coronary artery without angina pectoris (4) Coronary artery calcification seen on CAT scan: Status: Acute Category: Medical Code(s): I25.10 - Atherosclerotic heart disease of [place] coronary artery without angina pectoris (5) Acute CHF: Status: Acute Category: Medical Code(s): I50.9 - Heart failure, unspecified (6) Anxiety: Status: Acute Category: Medical Code(s): F41.9 - Anxiety disorder, unspecified (7) Pulmonary embolism: Status: Acute Qualifiers: Acute cor pulmonale presence: without acute cor pulmonale Chronicity: acute Pulmonary embolism type: other Qualified Code(s): I26.99 - Other pulmonary embolism without acute cor pulmonale Category: Medical Code(s): I26.99 - Other pulmonary embolism without acute cor pulmonale Plan Patient is a 67-year-old male who presented to hospital due to shortness of breath. Patient has past medical history of CAD CHF, hypertension hyperlipidemia, diabetes mellitus, COPD on 4 L at baseline. According to the patient he has been having shortness of breath for past couple days, it has been getting worse, he was found hypoxic on arrival to the hospital he was a started on BiPAP. Patient otherwise denied fever chills diarrhea constipation dysuria or chest pain. In the emergency department patient was also found to be hypotensive and was a started on Levophed, was found to be hypercapnic respiratory failure was started on BiPAP and was admitted for further management. Symptoms improving. Patient on nasal cannula oxygen. Continues to have significant dyspnea. Symptomatic treatment. Anticipate discharge tomorrow. Problems addressed as follows: Shortness of breath, acute hypoxic hypercapnic respiratory failure COPD exacerbation Suspect CHF exacerbation -Weaning oxygen. Tolerating 1-2 L on morning rounds. Wears up to 4 L at home. Continues to smoke at home. -Continue DuoNebs every 4 hours scheduled, continue Pulmicort every 12 hours scheduled -Continue vancomycin pending repeat cultures. Transition to levofloxacin for ease of transition to discharge regimen. 1 set of initial cultures positive for strep mitis, second set negative. Repeat pending. -Discussed case with pulmonology; recommend continuing anticoagulation and transitioning to Levaquin at discharge.. Wean oxygen as tolerated. - Continue anticoagulation for the noted PE for at least 3 months. Follow-up with D-dimer and lower extremity venous Doppler - Trelegy inhaler daily RUBENS: Kidney function normalized, creatinine 1.2, BUN 25. Repeat CBC, BMP ordered for tomorrow. White cell count normal at 6.0. Anxiety: Complicates patient's dyspnea. Continue citalopram as formulary conversion for his home Lexapro. Continue hydroxyzine 25 mg every 6 hours as needed. Monitor for improvement and dyspnea. Hypertension: bisoprolol 5 mg daily, amlodipine 10 mg daily. Holding lisinopril-HCTZ at this time Nicotine patch daily as needed for tobacco dependence Pantoprazole 40 mg daily Full code Cardiac diet Eliquis 10 mg twice daily
[2023-05-25] MEDS: VANCOMYCIN/WATER FOR INJ (PEG) 1.5 GM/300 ML PIGGYBACK IV (14:52)
[2023-05-25] MEDS: levoFLOXacin 750 MG TABLET PO (14:53)
--- NOTE | 2023-05-25 15:29 | PC.NURSE ---
pt is a/o x 4, pt is able to sit up on side of bed without assistance for meals. pt lung sounds are diminished throughout with fine crackles throughout. bowel sounds are active in all quads. pt states last bm was prior to arrival at hospital. nad pt has remained stable on 2 lpm this shift.
[2023-05-25] MEDS: MELATONIN 5MG TABLET 10 MG PO (20:16)
[2023-05-25] MEDS: ATORVASTATIN 40MG TABLET 40 MG PO (20:17)
[2023-05-26] VITALS: BP 98/68; PULSE 68; PULSE 70; RESP 26; TEMP 36.6; O2SAT 98
[2023-05-26 04:00] VITALS: BP 132/69; PULSE 64; PULSE 65; RESP 24; TEMP 36.4; O2SAT 95; BMI 29.2
--- NOTE | 2023-05-26 04:15 | PC.NURSE ---
PATIENT HAS RESTED WELL. NO COMPLAINTS VOICED. VITAL SIGNS STABLE/AFEBRILE. 02 SATS 98-100% ON 1.5 LNC. BREATH SOUNDS DIMINISHES, FAINT EXP WHEEZES PRESENT BILAT LUNG MONTOYA. DRY COUGH NOTED. SINUS RHYTHM ON THE MONITOR.
[2023-05-26 06:50] LABS: Basophils % 0.3 % (0.1-2.0); Eosinophils # 0.1 K/mm3 (0.0-0.4); Eosinophils % 0.8 % (0.1-12.0); Hematocrit 42.3 % (42.0-52.0); Hemoglobin 13.2 g/dL (14.1-18.0); Lymphocytes # 1.4 K/mm3 (0.7-4.5); Lymphocytes % 23.4 % (10-50); Mean Corpuscular HGB Conc 31.1 g/dL (31.8-35.4); Mean Corpuscular Hemoglobin 34.1 pg (27.0-31.2); Mean Corpuscular Volume 109.6 fl (80-94); Monocytes # 0.6 K/mm3 (0.1-1.0); Monocytes % 9.7 % (1.7-9.3); Neutrophils % 65.7 % (37.0-80.0); Platelet Count 216 K/mm3 (142-424); Red Blood Count 3.86 M/mm3 (4.60-6.20); Red Cell Distribution Width 14.6 % (11.5-17.5); White Blood Count 6.1 K/mm3 (4.8-10.8)
[2023-05-26 07:04] LABS: Chloride 101 mmol/L (98-107)
[2023-05-26 07:05] LABS: Sodium 139 mmol/L (136-145)
[2023-05-26 07:07] LABS: Blood Urea Nitrogen 23 mg/dl (9-20); Creatinine Clearance Estimated 85 mL/min (50-200); Estimated Glomerular Filt Rate 67 ml/min (>60); GFR (African American) 81 ML/MIN (>60)
[2023-05-26 07:08] LABS: Calcium 8.9 mg/dl (8.4-10.2); Glucose 91 mg/dl (74-100)
[2023-05-26 07:28] LABS: Vancomycin,Trough 18.3 ug/mL (5.0-10.0)
[2023-05-26 07:37] LABS: Carbon Dioxide 38 mmol/L (22.0-30.0)
[2023-05-26 08:00] VITALS: BP 130/90; PULSE 92; RESP 26; TEMP 36.7; O2SAT 95; O2SAT 99
--- NOTE | 2023-05-26 08:04 | P.DS_ITS ---
General Admission date:: 05/22/23 Discharge date: 05/26/23 HPI HPI HPI: Patient is a 67-year-old male who presented to hospital due to shortness of breath. Patient has past medical history of CAD CHF, hypertension hyperlipidemia, diabetes mellitus, COPD on 4 L at baseline. According to the patient he has been having shortness of breath for past couple days, it has been getting worse, he was found hypoxic on arrival to the hospital he was a started on BiPAP. Patient otherwise denied fever chills diarrhea constipation dysuria or chest pain. In the emergency department patient was also found to be hypoten sive and was a started on Levophed, was found to be hypercapnic respiratory failure was started on BiPAP and was admitted for further management. He endorses productive cough with yellow phlegm production. Hospital Course Hospital Course Hospital Course: Patient is a 67-year-old male who presented to hospital due to shortness of breath. Patient has past medical history of CAD CHF, hypertension hyperlipidemia, diabetes mellitus, COPD on 4 L at baseline. According to the patient he has been having shortness of breath for past couple days, it has been getting worse, he was found hypoxic on arrival to the hospital he was a started on BiPAP. Patient otherwise denied fever chills diarrhea constipation dysuria or chest pain. In the emergency department patient was also found to be hypotensive and was a started on Levophed, was found to be hypercapnic respiratory failure was started on BiPAP and was admitted for further management. Showed gradual improvement, ability to wean off Levophed in the first 24 hours. Oxygen slowly decreased, on 2 L oxygen on day of discharge which is better than his baseline use at home. Pulmonology assisted with care. Stable to discharge complete antibiotic course. Problems addressed as follows: Shortness of breath, acute hypoxic hypercapnic respiratory failure Septic shock COPD exacerbation Suspect CHF exacerbation Pulmonary emboli -Patient initially needing respiratory and vasopressor support. Started on Levophed and BiPAP. Found to have COPD and CHF exacerbation. Chest imaging obtained on admission also positive for 2 small subsegmental pulmonary emboli. Initiated on anticoagulation. Able to wean oxygen during course of hospitali zation from BiPAP to nasal cannula within the first 24 hours and gradually nasal cannula to 2 L by day of discharge. Pressors weaned within the first 24 hours. Showed slow improvement in air movement and ease of breathing. Pulmonology was consulted and assisted with care. Was treated with DuoNebs every 4 hours and Pulmicort twice daily. Started initially on vancomycin and levofloxacin. MRSA swab came back negative so was transition to levofloxacin to complete 10-day course of antibiotics. Will continue oral anticoagulation on discharge with Derek. Recommend close follow-up with pulmonology however patient states he will not come back for follow-ups. Encouraged him to seek regular maintenance therapy and visits as an outpatient, strong concern that patient will not follow back up. Initiated as well on Trelegy inhaler daily for maintenance therapy. Continues to smoke. Encourage smoking cessation multiple times during admission. RUBENS: Creatinine elevated on admission, normalized by day of discharge. Would benefit from repeat labs in 1 to 2 weeks to monitor for stability and CBC and CMP. Anxiety: Complicates patient's dyspnea. Continue Lexapro at discharge per home regimen prior to admission. Initiated on hydroxyzine 25 mg every 6 hours as needed. Had good response. Encouraged him to continue this as an outpatient. I feel his air hunger is the main bull driver of his oxygen use/perceived oxygen need. O2 sats in the low to mid 90s on 1 to 2 L, high 90s on 3 to 4 L. Patient feels most comfortable when he has 4 L and his sats are 98 to 100%. Hypertension: bisoprolol 5 mg daily, amlodipine 10 mg daily. Continue to hold lisinopril-HCTZ at this time given his normotension Nicotine patch daily as needed for tobacco dependence Stable for discharge home. Strongly encouraged follow-up with PCP and specialists. Spent 30 minutes in discharge counseling, documentation, chart review, and direct care with patient. Exam Data for Last 24 hours Vital signs and Labs for Last 24 Hours: Temp Pulse Resp BP Pulse Ox O2 Del Method O2 Flow Rate 97.9 F 72 28 H 114/65 97 Nasal Cannula 2 05/25/23 07:44 05/25/23 07:44 05/25/23 07:44 05/25/23 07:44 05/25/23 07:44 05/25/23 07:44 05/25/23 07:44 FiO2 30 05/23/23 06:49 Laboratory Results - last 24 hr 05/25/23 06:17: WBC 6.1, RBC 3.97 L, Hgb 13.4 L, Hct 43.2, MCV 109.0 H, MCH 33.8 H, MCHC 31.0 L, RDW 14.7, Plt Count 208, MPV 7.8, Neut % (Auto) 71.6, Lymph % (Auto) 20.3, [place] % (Auto) 7.2, Eos % (Auto) 0.7, Baso % (Auto) 0.2, Neut # (Auto) 4.3, Lymph # (Auto) 1.2, [place] # (Auto) 0.4, Eos # (Auto) 0.0, Baso # (Auto) 0.0, Sodium 138, Potassium 4.3, Chloride 99, Carbon Dioxide 42 H*, Anion Gap 1.3 L, BUN 25 H, Creatinine 1.20, Estimated Creat Clear 78, Estimated GFR 60, Est GFR ( Amer) 73, Glucose 97, Calcium 9.0 I & O for Last 24 hours: Intake & Output 05/22/23 05/23/23 05/24/23 05/25/23 23:59 23:59 23:59 23:59 Intake Total 989.500 / 552.260 4353.178 / 2649.178 840 / 940 220 / 220 Output Total 400 / 400 1115 / 1115 1200 / 1500 550 / 550 Balance 589.500 / 103.476 7606.178 / 1534.178 -360 / -560 -330 / -330 Weight 92.079 kg 93.015 kg 92.89 kg 92.397 kg Microbiology Reports for the Last 24 Hours: Microbiology 05/22/23 10:12 Blood Blood Culture - Preliminary 05/22/23 10:12 Blood Blood Culture - Preliminary Constitutional Constitutional: no acute distress, average body habitus, chronically ill appear ing and cooperative *Routine HEENT Exam Head: Present normocephalic Eye: Present EOMI and PERRL ENT: Present mucous membranes moist *Routine Neck Exam Neck: Present supple; Absent lymphadenopathy *Routine Respiratory Exam Respiratory: Present prolonged expiratory phase, rhonchi, wheezes and diminished air movement; Absent crackles *Routine Cardiovascular Exam Cardiovascular: Present RRR *Routine Abdominal Exam Abdominal: Present soft and normoactive bowel sounds; Absent tenderness *Routine Extremities Exam Extremities: Absent cyanosis, clubbing or edema *Routine Skin Exam Skin: Present warm; Absent rash *Routine Neurological Exam Neurological: Present alert, oriented X3 and moving all extremities; Absent altered mental status Results Data Completed and Pending Labs on day of discharge: Labs from last 24 hours 05/25/23 06:17 WBC 6.1 RBC 3.97 L Hgb 13.4 L Hct 43.2 MCV 109.0 H MCH 33.8 H MCHC 31.0 L RDW 14.7 Plt Count 208 MPV 7.8 Neut % (Auto) 71.6 Lymph % (Auto) 20.3 [place] % (Auto) 7.2 Eos % (Auto) 0.7 Baso % (Auto) 0.2 Neut # (Auto) 4.3 Lymph # (Auto) 1.2 [place] # (Auto) 0.4 Eos # (Auto) 0.0 Baso # (Auto) 0.0 Sodium 138 Potassium 4.3 Chloride 99 Carbon Dioxide 42 H* Anion Gap 1.3 L BUN 25 H Creatinine 1.20 Estimated Creat Clear 78 Estimated GFR 60 Est GFR ( Amer) 73 Glucose 97 Calcium 9.0 Preliminary micro results at discharge 05/22/23 10:12 Blood Culture - Preliminary Blood 05/22/23 10:12 Blood Culture - Preliminary Blood DS: Diagnosis Discharge Diagnosis (1) Acute respiratory failure with hypoxia and hypercarbia: Status: Acute Code(s): J96.01 - Acute respiratory failure with hypoxia; J96.02 - Acute respiratory failure with hypercapnia (2) COPD exacerbation: Status: Acute Code(s): J44.1 - Chronic obstructive pulmonary disease with (acute) exacerbation (3) CAD in [place] artery: Status: Acute Code(s): I25.10 - Atherosclerotic heart disease of [place] coronary artery without angina pectoris (4) Coronary artery calcification seen on CAT scan: Status: Acute Code(s): I25.10 - Atherosclerotic heart disease of [place] coronary artery without angina pectoris (5) Acute CHF: Status: Acute Code(s): I50.9 - Heart failure, unspecified (6) Anxiety: Status: Acute Code(s): F41.9 - Anxiety disorder, unspecified (7) Pulmonary embolism: Status: Acute Code(s): I26.99 - Other pulmonary embolism without acute cor pulmonale Qualifiers: Acute cor pulmonale presence: without acute cor pulmonale Chronicity: acute Pulmonary embolism type: other Qualified Code(s): I26.99 - Other pulmonary embolism without acute cor pulmonale Meds Home Medications and Allergies Home Medications Medication Instructions Recorded Confirmed Type albuterol sulfate 90 mcg/actuation 2 puffs IH Q4HP PRN Shortness Of 03/24/20 05/22/23 History aerosol inhaler Breath Or Wheezing amlodipine 10 mg tablet 10 mg PO DAILY High Blood Pressure 03/24/20 05/22/23 History escitalopram oxalate 20 mg tablet 20 mg PO DAILY Mood 03/24/20 05/22/23 History pantoprazole 40 mg tablet,delayed 40 mg PO DAILY Acid Reflux 08/12/22 05/22/23 History release ipratropium 20 mcg-albuterol 100 1 puff inhalation QID Breathing 04/06/23 05/22/23 History mcg/actuation mist for inhalation Problems (Combivent Respimat) aspirin 81 mg tablet,delayed 81 mg PO DAILY Heart Health 05/22/23 05/22/23 History release atorvastatin 40 mg tablet 40 mg PO HS Cholesterol 05/22/23 05/22/23 History bisoprolol fumarate 5 mg tablet 5 mg PO DAILY High Blood Pressure 05/22/23 05/22/23 History fluticasone fur. 100 mcg-umeclid 1 inh inhalation DAILY Breathing 05/22/23 05/22/23 History 62.5 mcg-vilant 25 mcg Problems inhalat.powder (Trelegy Ellipta) folic acid 1 mg tablet 1 mg PO DAILY Supplement 05/22/23 05/22/23 History furosemide 40 mg tablet 40 mg PO DAILY Fluid 05/22/23 05/22/23 History nicotine 21 mg/24 hr daily 21 mg transdermal DAILY Smoking 05/22/23 05/22/23 History transdermal patch Cessation apixaban 5 mg tablet (Eliquis) See Rx Instructions .Route 05/25/23 Rx .COMPLEX 30 days #74 tabs hydroxyzine pamoate 25 mg capsule 25 mg PO Q6HP PRN Itching 10 days 05/25/23 Rx #40 caps levofloxacin 750 mg tablet 750 mg PO 1100 5 days #5 tabs 05/25/23 Rx New Prescriptions to Start Prescriptions: apixaban [Eliquis] Sunday King hydroxyzine pamoate Sunday King levofloxacin Sunday King Allergies Allergy/AdvReac Type Severity Reaction Status Date / Time erythromycin base Allergy Unknown NA-NAUSEA/V Verified 11/19/18 11:23 [ERYTHROMYCIN BASE] OMITING Discharge Plan Disposition Patient Disposition: Home, Self-Care Condition: Fair Discharge Order Discharge Orders: Discharge Order (Routine); Ordered 05/26/23 Ordered By: Sunday King Follow up Plan Follow up with: Jnaa Armendariz [Referring] - 06/02/23 1:00 pm Bryan Ramirez MD [Physician] - 06/12/23 1:00 pm Filipe Smith MD [Staff Physician] - 06/05/23 2:30 pm Prescriptions/Medication Reconciliation: New levofloxacin 750 mg Tablet 750 mg PO 1100 5 Days Qty: 5 0RF hydroxyzine pamoate 25 mg Capsule 25 mg PO Q6HP PRN (Reason: Itching) 10 Days Qty: 40 0RF Eliquis 5 mg Tablet See Rx Instructions .ROUTE .COMPLEX 30 Days Qty: 74 0RF Rx Instructions: 10 mg orally twice daily for 3.5 days followed by 5mg BID starting morning of 05/30/23 Continued pantoprazole 40 mg tablet,delayed release (DR/EC) 40 mg PO DAILY Combivent Respimat 20-100 mcg/actuation mist 1 puff INHALATION QID folic acid 1 mg tablet 1 mg PO DAILY Patient Comments: TAKE ONE TABLET BY MOUTH DAILY AT 9 AM furosemide 40 mg tablet 40 mg PO DAILY atorvastatin 40 mg tablet 40 mg PO HS aspirin 81 mg tablet,delayed release (DR/EC) 81 mg PO DAILY bisoprolol fumarate 5 mg tablet 5 mg PO DAILY nicotine 21 mg/24 hr patch 24 hour 21 mg transdermal DAILY Trelegy Ellipta 100-62.5-25 mcg blister with device 1 inh INHALATION DAILY amlodipine 10 MG tablet 10 mg PO DAILY albuterol sulfate 8.5 GM HFA aerosol inhaler 2 puffs IH Q4HP PRN (Reason: Shortness Of Breath Or Wheezing) escitalopram oxalate 20 MG tablet 20 mg PO DAILY Discontinued lisinopril-hydrochlorothiazide 20-12.5 mg tablet 1 tab PO DAILY Problem Reconciliation Problems Reviewed?: Yes Patient Discharge Instructions ACTIVITY: Continue current activity DIET: continue same diet Patient Instructions: DI for Pulmonary Embolism, DI for Heart Failure Exacerbations Providers Primary Care Provider: Provider,Referral Admit Provider: Hernan Tam Attending Provider: Hernan Tam
--- NOTE | 2023-05-26 08:09 | P.CONPHA_ITS ---
Pharmacy Consult Date: 05/26/23 Time: 08:09 Referring provider: DR. GOMEZ Reason for Consult:: VANCOMYCIN DOSING Allergies Allergy/AdvReac Type Severity Reaction Status Date / Time erythromycin base Allergy Unknown NA-NAUSEA/V Verified 11/19/18 11:23 [ERYTHROMYCIN BASE] OMITING Home Medications Medication Instructions Recorded Confirmed Type albuterol sulfate 90 mcg/actuation 2 puffs IH Q4HP PRN Shortness Of 03/24/20 05/22/23 History aerosol inhaler Breath Or Wheezing amlodipine 10 mg tablet 10 mg PO DAILY High Blood Pressure 03/24/20 05/22/23 History escitalopram oxalate 20 mg tablet 20 mg PO DAILY Mood 03/24/20 05/22/23 History pantoprazole 40 mg tablet,delayed 40 mg PO DAILY Acid Reflux 08/12/22 05/22/23 History release ipratropium 20 mcg-albuterol 100 1 puff inhalation QID Breathing 04/06/23 05/22/23 History mcg/actuation mist for inhalation Problems (Combivent Respimat) aspirin 81 mg tablet,delayed 81 mg PO DAILY Heart Health 05/22/23 05/22/23 History release atorvastatin 40 mg tablet 40 mg PO HS Cholesterol 05/22/23 05/22/23 History bisoprolol fumarate 5 mg tablet 5 mg PO DAILY High Blood Pressure 05/22/23 05/22/23 History fluticasone fur. 100 mcg-umeclid 1 inh inhalation DAILY Breathing 05/22/23 05/22/23 History 62.5 mcg-vilant 25 mcg Problems inhalat.powder (Trelegy Ellipta) folic acid 1 mg tablet 1 mg PO DAILY Supplement 05/22/23 05/22/23 History furosemide 40 mg tablet 40 mg PO DAILY Fluid 05/22/23 05/22/23 History nicotine 21 mg/24 hr daily 21 mg transdermal DAILY Smoking 05/22/23 05/22/23 History transdermal patch Cessation apixaban 5 mg tablet (Eliquis) See Rx Instructions .Route 05/25/23 Rx .COMPLEX 30 days #74 tabs hydroxyzine pamoate 25 mg capsule 25 mg PO Q6HP PRN Itching 10 days 05/25/23 Rx #40 caps levofloxacin 750 mg tablet 750 mg PO 1100 5 days #5 tabs 05/25/23 Rx New Prescriptions to Start Prescriptions: hydroxyzine pamoate Sunday Gomez apixaban [Eliquis] Sunday Gomez levofloxacin Sunday Gomez Height: 1.78 m Weight: 92.624 kg Laboratory Results:: Laboratory Results - last 24 hr 05/26/23 05:59: WBC 6.1, RBC 3.86 L, Hgb 13.2 L, Hct 42.3, MCV 109.6 H, MCH 34.1 H, MCHC 31.1 L, RDW 14.6, Plt Count 216, MPV 8.0, Neut % (Auto) 65.7, Lymph % (Auto) 23.4, [place] % (Auto) 9.7 H, Eos % (Auto) 0.8, Baso % (Auto) 0.3, Neut # (Auto) 4.0, Lymph # (Auto) 1.4, [place] # (Auto) 0.6, Eos # (Auto) 0.1, Baso # (Auto) 0.0, Sodium 139, Potassium 4.0, Chloride 101, Carbon Dioxide 38 H, Anion Gap 4.0 L, BUN 23 H, Creatinine 1.10, Estimated Creat Clear 85, Estimated GFR 67, Est GFR ( Amer) 81, Glucose 91, Calcium 8.9 05/26/23 06:00: Vancomycin Trough 18.3 H Medical History: Medical History (Updated 05/24/23 @ 13:23 by Sunday Gomez MD) Acute respiratory failure with hypoxia and hypercarbia Alcohol use disorder, severe, in early remission Atypical angina CAD in [place] artery CAP (community acquired pneumonia) COPD (chronic obstructive pulmonary disease) Coronary artery calcification seen on CAT scan Cough Hilar lymphadenopathy Hyperlipidemia Hypertension Nodule of right lung Obesity (BMI 30-39.9) Pneumonia Pulmonary embolism Shortness of Breath Tobacco dependence Assessment and Plan Assessment and plan all Dx Assessment and Plan for all problems:: PATIENT'S VANCOMYCIN TROUGH LEVEL WAS 18.3 MCG/ML THIS AM. RECOMMEND CHANGING CURRENT DOSE OF VANCOMYCIN TO 1750 MG Q24H AT THIS TIME. WILL RETIME FOR TOMMORROW AM.
[2023-05-26 08:10] VITALS: O2SAT 98
[2023-05-26] MEDS: FLUTICASONE/UMECLIDIN/VILANTER 100/62.5/25MCG INHALER 1 PUFF IH (08:10)
[2023-05-26] MEDS: VANCOMYCIN/WATER FOR INJ (PEG) 1.5 GM/300 ML PIGGYBACK IV (08:22)
[2023-05-26] MEDS: APIXABAN 5MG TABLET 10 MG PO (08:26)
[2023-05-26] MEDS: BISOPROLOL 5MG TABLET 5 MG PO (08:26)
[2023-05-26] MEDS: CITALOPRAM 40MG TABLET 40 MG PO (08:26)
[2023-05-26] MEDS: FOLIC ACID 1MG TABLET 1 MG PO (08:27)
[2023-05-26] MEDS: PANTOPRAZOLE 40MG TABLET 40 MG PO (08:27)
[2023-05-26] MEDS: AMLODIPINE 10MG TABLET 10 MG PO (08:27)
[2023-05-26] MEDS: METHYLPREDNISOLONE SOD SUCC 40MG VIAL 40 MG IV (08:27)
[2023-05-26] MEDS: NICOTINE 21MG/24HR PATCH 21 MG TD (08:42)
--- NOTE | 2023-05-26 09:47 | EXP.PULM.PN ---
Subjective *Date: 05/26/23 *Time: 12:20 Interval history: No acute respiratory events overnight. Patient denies any new respiratory complaints. Pulmonology Exam Inpatient Vital signs and Labs for Last 24 Hours: Temp Pulse Resp BP Pulse Ox O2 Del Method O2 Flow Rate 98.0 F 92 H 26 H 130/90 98 Nasal Cannula 2 05/26/23 08:00 05/26/23 08:00 05/26/23 08:00 05/26/23 08:00 05/26/23 08:10 05/26/23 08:10 05/26/23 08:10 FiO2 30 05/23/23 06:49 Laboratory Results - last 24 hr 05/26/23 05:59: WBC 6.1, RBC 3.86 L, Hgb 13.2 L, Hct 42.3, MCV 109.6 H, MCH 34.1 H, MCHC 31.1 L, RDW 14.6, Plt Count 216, MPV 8.0, Neut % (Auto) 65.7, Lymph % (Auto) 23.4, [place] % (Auto) 9.7 H, Eos % (Auto) 0.8, Baso % (Auto) 0.3, Neut # (Auto) 4.0, Lymph # (Auto) 1.4, [place] # (Auto) 0.6, Eos # (Auto) 0.1, Baso # (Auto) 0.0, Sodium 139, Potassium 4.0, Chloride 101, Carbon Dioxide 38 H, Anion Gap 4.0 L, BUN 23 H, Creatinine 1.10, Estimated Creat Clear 85, Estimated GFR 67, Est GFR ( Amer) 81, Glucose 91, Calcium 8.9 05/26/23 06:00: Vancomycin Trough 18.3 H I & O for Labs for Last 24 Hours: Intake & Output 05/23/23 05/24/23 05/25/23 05/26/23 23:59 23:59 23:59 23:59 Intake Total 2549.178 / 2649.178 840 / 940 1000 / 1220 220 / 220 Output Total 1115 / 1115 1200 / 1500 1075 / 1075 350 / 350 Balance 1434.178 / 1534.178 -360 / -560 -75 / 145 -130 / -130 Weight 205 lb 1 oz 204 lb 12.598 oz 203 lb 11.2 oz 204 lb 3.2 oz Microbiology Reports for the Last 24 Hours: Microbiology 05/22/23 10:12 Blood Blood Culture - Preliminary 05/22/23 10:12 Blood Blood Culture - Preliminary Constitutional: Present moderate distress Head: Present normocephalic and atraumatic ENT: Present normal exam, normal oropharynx and mucous membranes moist Neck: Present normal inspection and full ROM Respiratory: Present decreased breath sounds, wheezes and able to speak in complete sentences; Absent prolonged expiratory phase or respiratory distress Cardiac: Present S1/S2, Tachycardia and radial pulses present GI: Present soft and distention; Absent tenderness or guarding Skin: Present intact; Absent cyanosis or jaundice Neuro: Present alert, awake and oriented x 3 Extremities: Present normal inspection; Absent clubbing or cyanosis Psychiatric: Present normal affect and cooperative Assessment and Plan *Assessment and plan (1) COPD exacerbation: Status: Acute Category: Medical Code(s): J44.1 - Chronic obstructive pulmonary disease with (acute) exacerbation (2) Acute respiratory failure with hypoxia and hypercarbia: Status: Acute Category: Medical Code(s): J96.01 - Acute respiratory failure with hypoxia; J96.02 - Acute respiratory failure with hypercapnia (3) Pulmonary embolism: Status: Acute Qualifiers: Acute cor pulmonale presence: without acute cor pulmonale Chronicity: acute Pulmonary embolism type: other Qualified Code(s): I26.99 - Other pulmonary embolism without acute cor pulmonale Category: Medical Code(s): I26.99 - Other pulmonary embolism without acute cor pulmonale Plan Mr. Flores is a 67-year-old male current smoker-30 PPD for COPD, previously seen in the hospital in August 2022 in April 2023 for COPD exacerbation presented to the ER with worsening respiratory distress, found to be in hypoxic hypercarbic respiratory failure needing BiPAP therapy and pulmonary was called for further evaluation and management. ABG upon admission severe hypercarbic respiratory failure. Chest x-ray stable from prior with no dense consolidation/airspace disease. Afebrile. Hemodynamically stable. No acute evidence of leukocytosis. COVID-19 and flu PCR negative upon admission. On initial examination, severe resp distress, Auscultation bilateral diffuse wheezing decreased breath sounds. CTA nonoccluding pulmonary emboli in the left lower lobe with distal filling noted. Less likely contributing to current hypoxia/increasing oxygen requirements. No evidence of RV strain. D-dimer within normal limits at 0.43. Lower extremity venous Doppler negative for DVT. Repeat ABG did not show any evidence of hypercarbic respiratory failure atient was off BiPAP on nasal cannula. Nasal MRSA PCR negative. Blood cultures from 1 bottle growing Streptococcus oralis. Repeat cultures pending. Given clinical stability improving respiratory status the plan was made to discharge the patient on levofloxacin with a close follow-up and repeat blood cultures. Interval Update: No acute respiratory vents overnight. Stable oxygen requirements. Continues to have wheezing. Significantly improved. Tolerating Trelegy well which is his home inhaler. Plan to be discharged today. Patient Plan: -Oxygen supplementation via nasal cannula as needed to maintain O2 saturation goal of 90 to 95%. Patient intermittent 1 to 2 L saturating 96 to 98%. Counseled regarding the need to keep his saturations between 90 and 95 not more than 95%. -Management of patient's anxiety as per primary team. Antibiotics to be weaned to levofloxacin to complete a total of 10-day course pending blood culture results and close follow-up. Trelegy 100 inhaler along with DuoNebs every 6 hours on as-needed basis Continue anticoagulation for the noted PE for at least 3 months. Prednisone to complete a total of 5-day course since admission Thank you for involving pulmonary in this patient care. Will follow the patient in pulmonary clinic in 5 to 7 days post discharge. The concerning right lower lobe lesion on his most recent CT on Apr 2023 appeared to be improving on today's chest x-ray, prior to prior, and a CTA performed yesterday for near complete resolution but no need for further follow-up with CT imaging at this point of time.
--- NOTE | 2023-05-29 14:39 | CARE MANAGER ---
Contacted patient related to hospital discharge. He states he is ok, but he is not following up with pulmonology or cardiology because he doesn't want to. He will follow up with Jana Armendariz. States he didn't get air when he needed it while he was in the hospital. He states he got Oxygen but he needed air . Tried to understand what the patient was trying to explain, but not sure what it was. He denies other questions.
== END 2023-05-26 11:26 | disposition home or self-care (01) | DRG 871 ==
LOC: ER 10:29 → 2ND 13:38
PROVIDERS: Internal Medicine Adolescent Medicine; Internal Medicine Pulmonary Disease; Admitting Provider Internal Medicine; Emergency Provider Emergency Medicine; Visit Provider Internal Medicine
DX: A41.9 Sepsis, unspecified organism (principal); I26.99 Other pulmonary embolism without acute cor pulmonale; J96.01 Acute respiratory failure with hypoxia; J96.02 Acute respiratory failure with hypercapnia; R65.21 Severe sepsis with septic shock; J44.1 Chronic obstructive pulmonary disease with (acute) exacerbation; E87.20 Acidosis, unspecified; N17.9 Acute kidney failure, unspecified; I25.10 Atherosclerotic heart disease of native coronary artery without angina pectoris; Z99.81 Dependence on supplemental oxygen; I11.0 Hypertensive heart disease with heart failure; I50.9 Heart failure, unspecified; E66.9 Obesity, unspecified; F17.210 Nicotine dependence, cigarettes, uncomplicated; I95.9 Hypotension, unspecified
CPT/HCPCS: 36415; 71045; 71275; 80048; 80053; 80202; 82803; 83605; 83735; 83880; 84484; 85025; 85378; 87040; 87070; 87081; 87205; 87636; 93005; 93970; 94640; 94761; 97163; 97165; 99291; J1956; J2543; J3475; Q9967

== ENCOUNTER 2023-07-06 12:55 | Inpatient (IN) | payer MEDICARE, SELFPAY ==
[2023-07-06] VITALS (41 sets, daily range): BP systolic 88–148; BP diastolic 52–91; PULSE 56–195; RESP 16–44; TEMP 36.1–38.1; O2SAT 81–100; BMI 20.5; BMI 21.4
--- NOTE | 2023-07-06 12:54 | ECG_ITS ---
APPROVED REPORT Exam: Resting ECG HR:159 bpm ECG Measurements Heart Rate 159 AXES OR 87 P 48 QRSd 89 QRS 67 QT 286 T 71 QTc 375 Conclusion SINUS TACHYCARDIA WITH SHORT OR INTERVAL NONSPECIFIC ST & T-WAVE ABNORMALITY CRITICAL TEST RESULT Electronically signed by : MIGUEL ANGEL HART, 07/06/2023 15:18:58
--- NOTE | 2023-07-06 12:57 | ED_ITS ---
Discharge Plan Disposition Patient Disposition: Admitted Prescriptions Prescriptions: No Action pantoprazole 40 mg tablet,delayed release (DR/EC) 40 mg PO DAILY Combivent Respimat 20-100 mcg/actuation mist 1 puff INHALATION QID folic acid 1 mg tablet 1 mg PO DAILY Patient Comments: TAKE ONE TABLET BY MOUTH DAILY AT 9 AM furosemide 40 mg tablet 40 mg PO DAILY atorvastatin 40 mg tablet 40 mg PO HS aspirin 81 mg tablet,delayed release (DR/EC) 81 mg PO DAILY bisoprolol fumarate 5 mg tablet 5 mg PO DAILY nicotine 21 mg/24 hr patch 24 hour 21 mg transdermal DAILY Trelegy Ellipta 100-62.5-25 mcg blister with device 1 inh INHALATION DAILY levofloxacin 750 mg Tablet 750 mg PO 1100 5 Days Qty: 5 0RF hydroxyzine pamoate 25 mg Capsule 25 mg PO Q6HP PRN (Reason: Itching) 10 Days Qty: 40 0RF Eliquis 5 mg Tablet See Rx Instructions .ROUTE .COMPLEX 30 Days Qty: 74 0RF Rx Instructions: 10 mg orally twice daily for 3.5 days followed by 5mg BID starting morning of 05/30/23 amlodipine 10 MG tablet 10 mg PO DAILY albuterol sulfate 8.5 GM HFA aerosol inhaler 2 puffs IH Q4HP PRN (Reason: Shortness Of Breath Or Wheezing) escitalopram oxalate 20 MG tablet 20 mg PO DAILY Referrals Follow up/Referrals: Provider,Referral, [Primary Care Provider] - See instructions Clinical Impressions Clinical Impression: Sepsis due to pneumonia, Severe sepsis, Non-ST elevation MD (NSTEMI), SVT (supraventricular tachycardia), Acute hypoxemic respiratory failure Discharge ED Provider: Reynaldo Proctor General Adult HPI <Berlin Means MD - Last Filed: 07/06/23 14:55> General Chief complaint: Shortness of Breath/Dyspnea Stated complaint: Resp Distress Time Seen by Provider: 07/06/23 12:57 History of Present Illness HPI narrative: Patient is a 67-year-old female with past medical history of previous pulmonary embolism, congestive heart failure, acute respiratory failure with hypoxia and hypercarbia, lung mass, COPD on 4 to 6 L nasal cannula at home who presents emergency department in extremis. History is obtained by patient at bedside, chart review, EMS. Patient has been laying in bed for the last week with productive cough. He has gotten progressively sick causing family to call 911 or present here for continued evaluation. Patient underwent heart catheterization in April showing a normal ejection fraction with mild pulmonary hypertension and mild nonocclusive coronary artery disease. In route patient was placed on nasal cannula and round, given 2 DuoNebs. Patient wishes to be intubated if necessary. Denies chest pain. Related Data Home Medications Medication Instructions Recorded Confirmed albuterol sulfate 90 mcg/actuation 2 puffs IH Q4HP PRN Shortness Of 03/24/20 05/22/23 aerosol inhaler Breath Or Wheezing amlodipine 10 mg tablet 10 mg PO DAILY High Blood Pressure 03/24/20 05/22/23 escitalopram oxalate 20 mg tablet 20 mg PO DAILY Mood 03/24/20 05/22/23 pantoprazole 40 mg tablet,delayed 40 mg PO DAILY Acid Reflux 08/12/22 05/22/23 release ipratropium 20 mcg-albuterol 100 1 puff inhalation QID Breathing 04/06/23 05/22/23 mcg/actuation mist for inhalation Problems (Combivent Respimat) aspirin 81 mg tablet,delayed 81 mg PO DAILY Heart Health 05/22/23 05/22/23 release atorvastatin 40 mg tablet 40 mg PO HS Cholesterol 05/22/23 05/22/23 bisoprolol fumarate 5 mg tablet 5 mg PO DAILY High Blood Pressure 05/22/23 05/22/23 fluticasone fur. 100 mcg-umeclid 1 inh inhalation DAILY Breathing 05/22/23 05/22/23 62.5 mcg-vilant 25 mcg Problems inhalat.powder (Trelegy Ellipta) folic acid 1 mg tablet 1 mg PO DAILY Supplement 05/22/23 05/22/23 furosemide 40 mg tablet 40 mg PO DAILY Fluid 05/22/23 05/22/23 nicotine 21 mg/24 hr daily 21 mg transdermal DAILY Smoking 05/22/23 05/22/23 transdermal patch Cessation Previous Rx's Medication Instructions Recorded apixaban 5 mg tablet (Eliquis) See Rx Instructions .Route 05/25/23 .COMPLEX 30 days #74 tabs hydroxyzine pamoate 25 mg capsule 25 mg PO Q6HP PRN Itching 10 days 05/25/23 #40 caps levofloxacin 750 mg tablet 750 mg PO 1100 5 days #5 tabs 05/25/23 Allergies Allergy/AdvReac Type Severity Reaction Status Date / Time erythromycin base Allergy Unknown NA-NAUSEA/V Verified 07/06/23 13:24 [ERYTHROMYCIN BASE] OMITING PFSH <Berlin Means MD - Last Filed: 07/06/23 14:55> PFSH Disclaimer: The information contained in this section may have been updated after the patient was seen, as this information can be updated by other users. Medical History (Updated 07/06/23 @ 16:05 by Reynaldo Proctor MD) Pulmonary embolism Acute respiratory failure with hypoxia and hypercarbia Cough CAD in [place] artery Hilar lymphadenopathy Nodule of right lung Shortness of Breath Atypical angina Coronary artery calcification seen on CAT scan Pneumonia CAP (community acquired pneumonia) Alcohol use disorder, severe, in early remission Tobacco dependence COPD (chronic obstructive pulmonary disease) Hyperlipidemia Hypertension Obesity (BMI 30-39.9) Surgical History History of colonoscopy Family History Mother Lung cancer Father COPD (chronic obstructive pulmonary disease) Social History Smoking Status: Never smoker second hand exposure: No alcohol intake: current current occupational status: disabled Travel in the last 8 weeks: None household members: significant other caffeine: No <Berlin Means MD - Last Filed: 07/06/23 14:55> ROS Obtained: Yes Systems reviewed as appropriate & no additional complaints except as documented Physical Exam <Berlin Means MD - Last Filed: 07/06/23 14:55> General General appearance: alert and other (In extremis) Head Head exam: atraumatic and normocephalic Eye Eye exam: Present PERRL and EOMI ENT ENT exam: Present other (Mucous membranes dry) Neck Neck exam: Present normal inspection Chest Chest inspection: Present normal inspection and symmetric chest wall rise Respiratory Respiratory exam: Present respiratory distress, wheezes, accessory muscle use, prolonged expiratory phase and other (Diffuse rhonchi and wheezing) Cardiovascular Cardiovascular exam: Present normal rhythm and tachycardia Abdominal Exam Abdominal exam: Present soft; Absent tenderness Extremities Exam Extremities exam: Present other (Mottled distal extremities, cold to touch. Delayed capillary refill.) Neurological Exam Neurological exam: Present alert Psychiatric Psychiatric exam: Present normal affect Skin Skin exam: Present warm and dry Medical Decision Making <Berlin Means MD - Last Filed: 07/06/23 14:55> [place] Pt receiving controlled substance: No Vital Signs: 07/06/23 12:55 07/06/23 13:00 07/06/23 13:01 Temperature 100.5 F H Temperature Source Rectal Pulse Rate 153 H 162 H Pulse Rate [Left Radial] 74 Respiratory Rate 42 H Blood Pressure 94/52 L Blood Pressure [Right Arm] 111/85 Blood Pressure Mean 78 Blood Pressure Mean [Right Arm] 93 Blood Pressure Source Blood Pressure Source [Right Arm] Automatic Cuff Blood Pressure Position [Right Arm] Supine 02 Sat by Pulse Oximetry 81 L 92 L Oxygen Delivery Method Nasal Cannula Oxygen Flow Rate (LPM) 6 07/06/23 13:38 07/06/23 13:40 07/06/23 13:45 Temperature Temperature Source Pulse Rate 157 H 164 H 162 H Pulse Rate [Left Radial] Respiratory Rate 42 H 43 H 42 H Blood Pressure 148/91 H 117/85 125/75 Blood Pressure [Right Arm] Blood Pressure Mean 110 95 97 Blood Pressure Mean [Right Arm] Blood Pressure Source Blood Pressure Source [Right Arm] Blood Pressure Position [Right Arm] 02 Sat by Pulse Oximetry 93 L 94 L 94 L Oxygen Delivery Method BiPAP BiPAP BiPAP Oxygen Flow Rate (LPM) 07/06/23 13:55 07/06/23 14:01 07/06/23 14:07 Temperature Temperature Source Pulse Rate 195 H 128 H 142 H Pulse Rate [Left Radial] Respiratory Rate 44 H 41 H 38 H Blood Pressure 117/83 108/80 L 119/78 Blood Pressure [Right Arm] Blood Pressure Mean Blood Pressure Mean [Right Arm] Blood Pressure Source Blood Pressure Source [Right Arm] Blood Pressure Position [Right Arm] 02 Sat by Pulse Oximetry 94 L 90 L 94 L Oxygen Delivery Method BiPAP BiPAP Oxygen Flow Rate (LPM) 07/06/23 14:12 07/06/23 14:17 07/06/23 14:20 Temperature Temperature Source Pulse Rate 120 H Pulse Rate [Left Radial] Respiratory Rate 38 H 35 H 36 H Blood Pressure 138/71 121/78 122/65 Blood Pressure [Right Arm] Blood Pressure Mean Blood Pressure Mean [Right Arm] Blood Pressure Source Blood Pressure Source [Right Arm] Blood Pressure Position [Right Arm] 02 Sat by Pulse Oximetry 94 L 96 Oxygen Delivery Method BiPAP BiPAP Oxygen Flow Rate (LPM) 07/06/23 14:25 07/06/23 14:30 07/06/23 15:26 Temperature Temperature Source Pulse Rate 121 H 135 H 60 Pulse Rate [Left Radial] Respiratory Rate 32 H 22 30 H Blood Pressure 132/63 132/63 135/67 Blood Pressure [Right Arm] Blood Pressure Mean 120 Blood Pressure Mean [Right Arm] Blood Pressure Source Automatic Cuff Blood Pressure Source [Right Arm] Blood Pressure Position [Right Arm] 02 Sat by Pulse Oximetry 94 L 99 100 Oxygen Delivery Method BiPAP BiPAP BiPAP Oxygen Flow Rate (LPM) 07/06/23 15:30 07/06/23 15:35 07/06/23 15:40 Temperature Temperature Source Pulse Rate 75 72 70 Pulse Rate [Left Radial] Respiratory Rate 30 H 28 H 29 H Blood Pressure 97/59 L 96/58 L 96/68 L Blood Pressure [Right Arm] Blood Pressure Mean 71 65 72 Blood Pressure Mean [Right Arm] Blood Pressure Source Blood Pressure Source [Right Arm] Blood Pressure Position [Right Arm] 02 Sat by Pulse Oximetry 100 98 99 Oxygen Delivery Method BiPAP BiPAP BiPAP Oxygen Flow Rate (LPM) 07/06/23 15:45 Temperature Temperature Source Pulse Rate 61 Pulse Rate [Left Radial] Respiratory Rate 28 H Blood Pressure 95/66 L Blood Pressure [Right Arm] Blood Pressure Mean 70 Blood Pressure Mean [Right Arm] Blood Pressure Source Blood Pressure Source [Right Arm] Blood Pressure Position [Right Arm] 02 Sat by Pulse Oximetry 98 Oxygen Delivery Method BiPAP Oxygen Flow Rate (LPM) Lab Data Lab Results 07/06/23 13:09: WBC 21.4 H*, RBC 5.24, Hgb 16.7, Hct 55.9 H, MCV 106.7 H, MCH 31.8 H, MCHC 29.8 L, RDW 14.4, Plt Count 317, MPV 8.9, Neut % (Auto) 91.8 H, L ymph % (Auto) 4.4 L, Keith % (Auto) 2.1, Eos % (Auto) 0.3, Baso % (Auto) 1.5, N eut # (Auto) 19.6 H, Lymph # (Auto) 0.9, Keith # (Auto) 0.4, Eos # (Auto) 0.1, B aso # (Auto) 0.3 H, Total Counted 100, Neutrophils % (Manual) 94 H, Lymphocytes % (Manual) 5 L, Monocytes % (Manual) 1 L, Platelet Estimate Normal, RBC Morphology Not Reportable, Macrocytosis 1+, Stomatocytes 1+ 07/06/23 13:17: VBG pH 7.26 L, VBG pCO2 60.3 H, VBG pO2 34.0, VBG HCO3 26.7, VBG Total CO2 28.5 H, VBG O2 Saturation 50.4, VBG Base Excess -0.3, VBG Lactic Acid 5.3 H 07/06/23 13:18: Chlamy pneumoniae PCR TNP, Adenovirus (PCR) Not detected, B. pertussis DNA (PCR) TNP, Coronavirus OC43 (PCR) Not detected, Coronavirus HKU1 (PCR) Not detected, Coronavirus 229E (PCR) Not detected, SARS-CoV-2 (PCR) Not detected, Coronavirus NL63 (PCR) Not detected, Human Metapneumovir PCR Not detected, Influenza A (H1) PCR Not detected, Influ A (H1N1/09) PCR Not detected, Influenza A (H3) PCR Not detected, Influenza Type A (PCR) Not detected, Influenza Type B (PCR) Not detected, M. pneumoniae (PCR) TNP, Parainfluenza 1 (PCR) Not detected, Parainfluenza 2 (PCR) Not detected, Parainfluenza 3 (PCR) Not detected, Parainfluenza 4 (PCR) Not detected, RSV (PCR) Not detected, Entero/Rhino (PCR) Not detected 07/06/23 13:25: Specimen Source Left radial, O2 % 100%, ABG pH 7.31 L, ABG pCO2 47.8 H, ABG pO2 67.7 L, ABG HCO3 23.3, ABG Total CO2 24.7, ABG O2 Saturation 90, ABG Base Excess -3.1 L, Sukumar Test Acceptable 07/06/23 13:26: Urine Color Yellow, Urine Appearance Clear, Urine pH 6.0, Ur Specific [place] 1.025, Urine Protein 1+, Urine Glucose (UA) Negative, Urine Ketones Negative, Urine Blood Trace-i, Urine Nitrate Negative, Urine Bilirubin Negative, Urine Urobilinogen 1.0, Ur Leukocyte Esterase Negative, Urine RBC None, Urine WBC Occasional, Ur Squamous Epith Cells None, Urine Bacteria None 07/06/23 13:45: Sodium 132 L, Potassium 3.4 L, Chloride 97 L, Carbon Dioxide 24, Anion Gap 14.4, BUN 60 H, Creatinine 1.40 H, Estimated Creat Clear 50, Estimated GFR 51 L, Est GFR ( Amer) 61, Glucose 122 H, Calcium 8.3 L, Total Bilirubin 1.3, AST 83 H, ALT 40, Alkaline Phosphatase 166 H, Total Creatine Kinase 28 L, Troponin I 0.42 H, Total Protein 6.2 L, Albumin 2.7 L, Globulin 3.5 H, Albumin/Globulin Ratio 0.8 L 07/06/23 13:09 07/06/23 13:45 Orders (Tests/Meds): ED MEDICATIONS Generic Name Dose Route Start Last Admin Trade Name Freq PRN Reason Stop Dose Admin Acetaminophen 650 mg 07/06/23 15:59 Acetaminophen 325mg Tab PO 08/05/23 15:58 Q4HP PRN Fever or Mild Pain (1-3) Ondansetron HCl 4 mg 07/06/23 15:59 Ondansetron 4mg/2ml Vial IV 08/05/23 15:58 Q8HP PRN Nausea Sodium Chloride 10 ml 07/06/23 14:47 07/06/23 14:50 Sodium Chloride 0.9% 10ml Syr (Rad Only) IV 08/05/23 14:46 10 ml NEEDED PRN Administration Maintain IV Site Discontinued Medications Generic Name Dose Route Start Last Admin Trade Name Freq PRN Reason Stop Dose Admin Acetaminophen 1,000 mg 07/06/23 13:03 07/06/23 13:27 Acetaminophen 1,000mg/100ml Vial IV 07/06/23 13:04 1,000 mg ONCE ONE Administration Albuterol/Ipratropium 24 ml 07/06/23 13:45 07/06/23 13:39 Ipratropium/Albuterol 3 Ml Neb IH 07/06/23 13:46 24 ml ONCE ONE Administration Ceftriaxone Sodium 2 gm/ 100 mls @ 200 mls/hr 07/06/23 13:04 07/06/23 13:27 Sodium Chloride IV 07/06/23 13:33 200 mls/hr ONCE ONE Administration Vancomycin/PEG/NADA/Lysine/Water 1.25 gm in 250 mls @ 125 mls/hr 07/06/23 13:30 07/06/23 13:56 Vancomycin 1.25gm/250ml (Peg) Premix IV 07/06/23 15:29 125 mls/hr ONCE ONE Administration Lactated Ringer's 2,330 mls @ 1,165 mls/hr 07/06/23 13:28 07/06/23 13:28 Lactated Ringer's 1000 Ml Bag 30 ml/kg infuse over 2 hr (2330 ml) 07/06/23 15:27 1,165 mls/hr IV Administration .Q2H ONE Iopamidol 75 ml 07/06/23 14:47 07/06/23 14:49 Iopamidol-370 (76%);100ml Bottle IV 07/06/23 14:48 75 ml ONCE ONE Administration Methylprednisolone Sodium Succinate 125 mg 07/06/23 13:06 07/06/23 13:27 Methylprednisolone Sod Succ 125mg Vial IV 07/06/23 13:07 125 mg ONCE ONE Administration Miscellaneous 1 each 07/06/23 13:15 07/06/23 13:27 Vancomycin Consult Request NOTAPPLIC 08/05/23 13:14 1 each [facility]SULT [facility] Administration Sodium Chloride 50 ml 07/06/23 14:47 07/06/23 14:49 0.9 % Sodium Chloride 50 Ml Vial IV 07/06/23 14:48 50 ml ONCE ONE Administration ORDERS Category Date Time Status CT angio chest PE protocol Stat Cat Scan 07/06/23 13:05 Taken Basic Metabolic Panel [facility] Lab 07/07/23 06:00 Ordered Basic Metabolic Panel AMLAB Lab 07/08/23 06:00 Ordered Basic Metabolic Panel AMLAB Lab 07/09/23 06:00 Ordered Complete Blood Count Auto Diff AMLAB Lab 07/07/23 06:00 Ordered Complete Blood Count Auto Diff AMLAB Lab 07/08/23 06:00 Ordered Complete Blood Count Auto Diff AMLAB Lab 07/09/23 06:00 Ordered Complete Blood Count Auto Diff Stat Lab 07/06/23 13:09 Completed Comprehensive Metabolic Panel AMLAB Lab 07/07/23 06:00 Ordered Comprehensive Metabolic Panel AMLAB Lab 07/08/23 06:00 Ordered Comprehensive Metabolic Panel AMLAB Lab 07/09/23 06:00 Ordered Comprehensive Metabolic Panel Stat Lab 07/06/23 13:45 Completed Creatine Kinase Stat Lab 07/06/23 13:45 Completed Full Resp Panel w/COVID (H) Routine Lab 07/06/23 13:18 Completed Trop I [Troponin I] Stat Lab 07/06/23 13:45 Completed Troponin I Q3H Lab 07/06/23 16:15 Ordered Troponin I Q3H Lab 07/06/23 19:15 Ordered UA [Urinalysis and Microscopic] Stat Lab 07/06/23 13:26 Completed Blood Culture Stat Micro 07/06/23 13:20 Received Urine Culture Stat Micro 07/06/23 13:25 Received Arterial Blood Gas Routine RT 07/06/23 13:25 Completed VBG [Venous Blood Gas] Stat RT 07/06/23 13:17 Completed ECG Data Tracing #1: Independently interpreted by me, rate is 159, rhythm is regular, normal axis, sinus tachycardia, no ST elevation in anatomical contiguous leads. QTc 375. Tracing #2: Independently interpreted by me, rate is 212, rhythm is regular, no identifiable P waves, QRS is narrow, consistent with SVT. HEART Score History (anamnesis): Slightly suspicious ECG: Non-specific disturbance Age: >65 years Risk factors: 3 or more risk factors Troponin: > 3x normal limit HEART Score: 7 Medical Decision Narrative: In summary patient is a 67-year-old male with past medical history described above who presents emergency department for evaluation of shortness of breath. Patient is an extremis upon arrival, hypoxic on nonrebreather. Intermittent saturations are in the 90s and difficult to ascertain baseline given cold extremities. Patient is in cold shock, extreme sinus tachycardia. Differential includes severe pneumonia, COPD exacerbation, pulmonary embolism, atypical ACS, among others. Workup will be conducted with hematologic labs, CTA chest. Patient was placed on BiPAP immediately and DuoNebs were ran through the circuit. Broad-spectrum antibiotics and sepsis bolus fluids will be initiated given normal ejection fraction April. CTA from May shows nonoccluding pulmonary emboli into segmental arteries of the right lower lobe with light thrombus burden. Upon repeat evaluation patient had improved air movement, improving tachypnea on BiPAP, resolving tachycardia however he does have intermittent SVT with heart rate greater than 200. I suspect this is due to critical illness and beta agonism through the BiPAP circuit with albuterol. Initial workup reviewed by me, hematologic labs significantly elevated 21.4 white blood cell count with left shift. Remarkably compensated VBG with the exception of elevated lactate 5.3. No critical electrolyte abnormalities, elevated creatinine that does not meet RUBENS per rifle criteria. Patient does have significant troponin 0.42 which I suspect is either secondary to sepsis versus pulmonary embolism. Given improved hemodynamics patient is appropriate for transport on BiPAP to CT scan at this time. CT imaging informally interpreted by me, no saddle embolism, significant right lower lobe pneumonia and is already on appropriate antibiotics. The case was discussed with cardiology who will evaluate the patient. Formal read pending at time of transfer of care to the oncoming physician, Dr. Proctor. Patient will require admission to the hospital for sepsis secondary to pneumonia. <Reynaldo Proctor MD - Last Filed: 07/06/23 16:05> Vital Signs: 07/06/23 12:55 07/06/23 13:00 07/06/23 13:01 Temperature 100.5 F H Temperature Source Rectal Pulse Rate 153 H 162 H Pulse Rate [Left Radial] 74 Respiratory Rate 42 H Blood Pressure 94/52 L Blood Pressure [Right Arm] 111/85 Blood Pressure Mean 78 Blood Pressure Mean [Right Arm] 93 Blood Pressure Source Blood Pressure Source [Right Arm] Automatic Cuff Blood Pressure Position [Right Arm] Supine 02 Sat by Pulse Oximetry 81 L 92 L Oxygen Delivery Method Nasal Cannula Oxygen Flow Rate (LPM) 6 07/06/23 13:38 07/06/23 13:40 07/06/23 13:45 Temperature Temperature Source Pulse Rate 157 H 164 H 162 H Pulse Rate [Left Radial] Respiratory Rate 42 H 43 H 42 H Blood Pressure 148/91 H 117/85 125/75 Blood Pressure [Right Arm] Blood Pressure Mean 110 95 97 Blood Pressure Mean [Right Arm] Blood Pressure Source Blood Pressure Source [Right Arm] Blood Pressure Position [Right Arm] 02 Sat by Pulse Oximetry 93 L 94 L 94 L Oxygen Delivery Method BiPAP BiPAP BiPAP Oxygen Flow Rate (LPM) 07/06/23 13:55 07/06/23 14:01 07/06/23 14:07 Temperature Temperature Source Pulse Rate 195 H 128 H 142 H Pulse Rate [Left Radial] Respiratory Rate 44 H 41 H 38 H Blood Pressure 117/83 108/80 L 119/78 Blood Pressure [Right Arm] Blood Pressure Mean Blood Pressure Mean [Right Arm] Blood Pressure Source Blood Pressure Source [Right Arm] Blood Pressure Position [Right Arm] 02 Sat by Pulse Oximetry 94 L 90 L 94 L Oxygen Delivery Method BiPAP BiPAP Oxygen Flow Rate (LPM) 07/06/23 14:12 07/06/23 14:17 07/06/23 14:20 Temperature Temperature Source Pulse Rate 120 H Pulse Rate [Left Radial] Respiratory Rate 38 H 35 H 36 H Blood Pressure 138/71 121/78 122/65 Blood Pressure [Right Arm] Blood Pressure Mean Blood Pressure Mean [Right Arm] Blood Pressure Source Blood Pressure Source [Right Arm] Blood Pressure Position [Right Arm] 02 Sat by Pulse Oximetry 94 L 96 Oxygen Delivery Method BiPAP BiPAP Oxygen Flow Rate (LPM) 07/06/23 14:25 07/06/23 14:30 07/06/23 15:26 Temperature Temperature Source Pulse Rate 121 H 135 H 60 Pulse Rate [Left Radial] Respiratory Rate 32 H 22 30 H Blood Pressure 132/63 132/63 135/67 Blood Pressure [Right Arm] Blood Pressure Mean 120 Blood Pressure Mean [Right Arm] Blood Pressure Source Automatic Cuff Blood Pressure Source [Right Arm] Blood Pressure Position [Right Arm] 02 Sat by Pulse Oximetry 94 L 99 100 Oxygen Delivery Method BiPAP BiPAP BiPAP Oxygen Flow Rate (LPM) 07/06/23 15:30 07/06/23 15:35 07/06/23 15:40 Temperature Temperature Source Pulse Rate 75 72 70 Pulse Rate [Left Radial] Respiratory Rate 30 H 28 H 29 H Blood Pressure 97/59 L 96/58 L 96/68 L Blood Pressure [Right Arm] Blood Pressure Mean 71 65 72 Blood Pressure Mean [Right Arm] Blood Pressure Source Blood Pressure Source [Right Arm] Blood Pressure Position [Right Arm] 02 Sat by Pulse Oximetry 100 98 99 Oxygen Delivery Method BiPAP BiPAP BiPAP Oxygen Flow Rate (LPM) 07/06/23 15:45 Temperature Temperature Source Pulse Rate 61 Pulse Rate [Left Radial] Respiratory Rate 28 H Blood Pressure 95/66 L Blood Pressure [Right Arm] Blood Pressure Mean 70 Blood Pressure Mean [Right Arm] Blood Pressure Source Blood Pressure Source [Right Arm] Blood Pressure Position [Right Arm] 02 Sat by Pulse Oximetry 98 Oxygen Delivery Method BiPAP Oxygen Flow Rate (LPM) Lab Data Lab Results 07/06/23 13:09: WBC 21.4 H*, RBC 5.24, Hgb 16.7, Hct 55.9 H, MCV 106.7 H, MCH 31.8 H, MCHC 29.8 L, RDW 14.4, Plt Count 317, MPV 8.9, Neut % (Auto) 91.8 H, L ymph % (Auto) 4.4 L, Keith % (Auto) 2.1, Eos % (Auto) 0.3, Baso % (Auto) 1.5, N eut # (Auto) 19.6 H, Lymph # (Auto) 0.9, Keith # (Auto) 0.4, Eos # (Auto) 0.1, B aso # (Auto) 0.3 H, Total Counted 100, Neutrophils % (Manual) 94 H, Lymphocytes % (Manual) 5 L, Monocytes % (Manual) 1 L, Platelet Estimate Normal, RBC Morphology Not Reportable, Macrocytosis 1+, Stomatocytes 1+ 07/06/23 13:17: VBG pH 7.26 L, VBG pCO2 60.3 H, VBG pO2 34.0, VBG HCO3 26.7, VBG Total CO2 28.5 H, VBG O2 Saturation 50.4, VBG Base Excess -0.3, VBG Lactic Acid 5.3 H 07/06/23 13:18: Chlamy pneumoniae PCR TNP, Adenovirus (PCR) Not detected, B. pertussis DNA (PCR) TNP, Coronavirus OC43 (PCR) Not detected, Coronavirus HKU1 (PCR) Not detected, Coronavirus 229E (PCR) Not detected, SARS-CoV-2 (PCR) Not detected, Coronavirus NL63 (PCR) Not detected, Human Metapneumovir PCR Not detected, Influenza A (H1) PCR Not detected, Influ A (H1N1/09) PCR Not detected, Influenza A (H3) PCR Not detected, Influenza Type A (PCR) Not detected, Influenza Type B (PCR) Not detected, M. pneumoniae (PCR) TNP, Parainfluenza 1 (PCR) Not detected, Parainfluenza 2 (PCR) Not detected, Parainfluenza 3 (PCR) Not detected, Parainfluenza 4 (PCR) Not detected, RSV (PCR) Not detected, Entero/Rhino (PCR) Not detected 07/06/23 13:25: Specimen Source Left radial, O2 % 100%, ABG pH 7.31 L, ABG pCO2 47.8 H, ABG pO2 67.7 L, ABG HCO3 23.3, ABG Total CO2 24.7, ABG O2 Saturation 90, ABG Base Excess -3.1 L, Sukumar Test Acceptable 07/06/23 13:26: Urine Color Yellow, Urine Appearance Clear, Urine pH 6.0, Ur Specific [place] 1.025, Urine Protein 1+, Urine Glucose (UA) Negative, Urine Ketones Negative, Urine Blood Trace-i, Urine Nitrate Negative, Urine Bilirubin Negative, Urine Urobilinogen 1.0, Ur Leukocyte Esterase Negative, Urine RBC None, Urine WBC Occasional, Ur Squamous Epith Cells None, Urine Bacteria None 07/06/23 13:45: Sodium 132 L, Potassium 3.4 L, Chloride 97 L, Carbon Dioxide 24, Anion Gap 14.4, BUN 60 H, Creatinine 1.40 H, Estimated Creat Clear 50, Estimated GFR 51 L, Est GFR ( Amer) 61, Glucose 122 H, Calcium 8.3 L, Total Bilirubin 1.3, AST 83 H, ALT 40, Alkaline Phosphatase 166 H, Total Creatine Kinase 28 L, Troponin I 0.42 H, Total Protein 6.2 L, Albumin 2.7 L, Globulin 3.5 H, Albumin/Globulin Ratio 0.8 L Orders (Tests/Meds): ED MEDICATIONS Generic Name Dose Route Start Last Admin Trade Name Freq PRN Reason Stop Dose Admin Acetaminophen 650 mg 07/06/23 15:59 Acetaminophen 325mg Tab PO 08/05/23 15:58 Q4HP PRN Fever or Mild Pain (1-3) Ondansetron HCl 4 mg 07/06/23 15:59 Ondansetron 4mg/2ml Vial IV 08/05/23 15:58 Q8HP PRN Nausea Sodium Chloride 10 ml 07/06/23 14:47 07/06/23 14:50 Sodium Chloride 0.9% 10ml Syr (Rad Only) IV 08/05/23 14:46 10 ml NEEDED PRN Administration Maintain IV Site Discontinued Medications Generic Name Dose Route Start Last Admin Trade Name Freq PRN Reason Stop Dose Admin Acetaminophen 1,000 mg 07/06/23 13:03 07/06/23 13:27 Acetaminophen 1,000mg/100ml Vial IV 07/06/23 13:04 1,000 mg ONCE ONE Administration Albuterol/Ipratropium 24 ml 07/06/23 13:45 07/06/23 13:39 Ipratropium/Albuterol 3 Ml Neb IH 07/06/23 13:46 24 ml ONCE ONE Administration Ceftriaxone Sodium 2 gm/ 100 mls @ 200 mls/hr 07/06/23 13:04 07/06/23 13:27 Sodium Chloride IV 07/06/23 13:33 200 mls/hr ONCE ONE Administration Vancomycin/PEG/NADA/Lysine/Water 1.25 gm in 250 mls @ 125 mls/hr 07/06/23 13:30 07/06/23 13:56 Vancomycin 1.25gm/250ml (Peg) Premix IV 07/06/23 15:29 125 mls/hr ONCE ONE Administration Lactated Ringer's 2,330 mls @ 1,165 mls/hr 07/06/23 13:28 07/06/23 13:28 Lactated Ringer's 1000 Ml Bag 30 ml/kg infuse over 2 hr (2330 ml) 07/06/23 15:27 1,165 mls/hr IV Administration .Q2H ONE Iopamidol 75 ml 07/06/23 14:47 07/06/23 14:49 Iopamidol-370 (76%);100ml Bottle IV 07/06/23 14:48 75 ml ONCE ONE Administration Methylprednisolone Sodium Succinate 125 mg 07/06/23 13:06 07/06/23 13:27 Methylprednisolone Sod Succ 125mg Vial IV 07/06/23 13:07 125 mg ONCE ONE Administration Miscellaneous 1 each 07/06/23 13:15 07/06/23 13:27 Vancomycin Consult Request NOTAPPLIC 08/05/23 13:14 1 each [facility] Administration Sodium Chloride 50 ml 07/06/23 14:47 07/06/23 14:49 0.9 % Sodium Chloride 50 Ml Vial IV 07/06/23 14:48 50 ml ONCE ONE Administration ORDERS Category Date Time Status CT angio chest PE protocol Stat Cat Scan 07/06/23 13:05 Taken Basic Metabolic Panel [facility] Lab 07/07/23 06:00 Ordered Basic Metabolic Panel [facility] Lab 07/08/23 06:00 Ordered Basic Metabolic Panel [facility] Lab 07/09/23 06:00 Ordered Complete Blood Count Auto Diff [facility] Lab 07/07/23 06:00 Ordered Complete Blood Count Auto Diff [facility] Lab 07/08/23 06:00 Ordered Complete Blood Count Auto Diff [facility] Lab 07/09/23 06:00 Ordered Complete Blood Count Auto Diff Stat Lab 07/06/23 13:09 Completed Comprehensive Metabolic Panel [facility] Lab 07/07/23 06:00 Ordered Comprehensive Metabolic Panel [facility] Lab 07/08/23 06:00 Ordered Comprehensive Metabolic Panel [facility] Lab 07/09/23 06:00 Ordered Comprehensive Metabolic Panel Stat Lab 07/06/23 13:45 Completed Creatine Kinase Stat Lab 07/06/23 13:45 Completed Full Resp Panel w/COVID ([facility]) Routine Lab 07/06/23 13:18 Completed Trop I [Troponin I] Stat Lab 07/06/23 13:45 Completed Troponin I Q3H Lab 07/06/23 16:15 Ordered Troponin I Q3H Lab 07/06/23 19:15 Ordered UA [Urinalysis and Microscopic] Stat Lab 07/06/23 13:26 Completed Blood Culture Stat Micro 07/06/23 13:20 Received Urine Culture Stat Micro 07/06/23 13:25 Received Arterial Blood Gas Routine RT 07/06/23 13:25 Completed VBG [Venous Blood Gas] Stat RT 07/06/23 13:17 Completed HEART Score HEART Score: 7 Medical Decision Narrative: In summary patient is a 67-year-old male with past medical history described above who presents emergency department for evaluation of shortness of breath. Patient is an extremis upon arrival, hypoxic on nonrebreather. Intermittent saturations are in the 90s and difficult to ascertain baseline given cold extremities. Patient is in cold shock, extreme sinus tachycardia. Differential includes severe pneumonia, COPD exacerbation, pulmonary embolism, atypical ACS, among others. Workup will be conducted with hematologic labs, CTA chest. Patient was placed on BiPAP immediately and DuoNebs were ran through the circuit. Broad-spectrum antibiotics and sepsis bolus fluids will be initiated given normal ejection fraction April. CTA from May shows nonoccluding pulmonary emboli into segmental arteries of the right lower lobe with light thrombus burden. Upon repeat evaluation patient had improved air movement, improving tachypnea on BiPAP, resolving tachycardia however he does have intermittent SVT with heart rate greater than 200. I suspect this is due to critical illness and beta agonism through the BiPAP circuit with albuterol. Initial workup reviewed by me, hematologic labs significantly elevated 21.4 white blood cell count with left shift. Remarkably compensated VBG with the exception of elevated lactate 5.3. No critical electrolyte abnormalities, elevated creatinine that does not meet RUBENS per rifle criteria. Patient does have significant troponin 0.42 which I suspect is either secondary to sepsis versus pulmonary embolism. Given improved hemodynamics patient is appropriate for transport on BiPAP to CT scan at this time. CT imaging informally interpreted by me, no saddle embolism, significant right lower lobe pneumonia and is already on appropriate antibiotics. The case was discussed with cardiology who will evaluate the patient. Formal read pending at time of transfer of care to the oncoming physician, Dr. Proctor. Patient will require admission to the hospital for sepsis secondary to pneumonia. Hitesh: I assumed primary responsibility for this patient after signout from previous physician. Final read still pending, but on my independent interpretation of the CT. Patient has massive right lower lobe pneumonia which is almost certainly causing patient's symptoms. No evidence of dissection, vascular abnormality, PE. Patient is also on Eliquis, so makes this a lot less likely. On my evaluation, patient asking for drink, I told him not at this time. Still on BiPAP. Hospitalist contacted and case was discussed at length, patient to be admitted. Because patient high risk for clinical decompensation, deemed appropriate for inpatient admission. Results were relayed to patient who voiced understanding and patient was agreeable to inpatient admission and management. Patient was admitted to the hospital for further definitive management. Critical Care <Berlin Means MD - Last Filed: 07/06/23 14:55> Critical Care Time Critical Care Time: Yes Attestation: On 07/06/23, the high probability of a clinically significant, sudden or life threatening deterioration of the following system(s) required my full and direct attention, intervention and personal management. The time I documented below is in addition to time spent performing reported procedures but includes the following listed in this critical care notation. Total Time Total Critical Care Time: 45
--- NOTE | 2023-07-06 13:05 | CT_ITS ---
FINAL REPORT CLINICAL HISTORY: acute resp failure, extreme tachy COMPARISON: 05/22/2023 FINDINGS: Thin section axial CT images of the chest were obtained with contrast. 3D reformatted images were also obtained. This study was performed with techniques to keep radiation doses as low as reasonably achievable (ALARA). Individualized dose reduction techniques using automated exposure control or adjustment of mA and/or kV according to the patient's size were employed. There is motion on many of the images which decreases the sensitivity of the exam. No definite pulmonary embolism is identified. There is no evidence of thoracic aortic aneurysm or dissection. There is mild mediastinal and right hilar adenopathy which appears worse compared to the prior exam. There is a new focal medial right upper lobe opacity measuring 39 mm. There is near complete consolidation of the right lower lobe. Findings are consistent with pneumonia. Limited images of the upper abdomen demonstrate bilateral adrenal gland enlargement which may be related to hyperplasia or adenomas. There are probable bilateral renal cysts. IMPRESSION: Motion on many of the images which the sensitivity of the exam. No definite pulmonary embolism. Right lung pneumonia with near complete consolidation of the right lower lobe. Reviewed, Interpreted and Dictated by Kailash Fitch III, MD Transcribed by Nisreen Beatty Authenticated and [facility]
[2023-07-06 13:17] LABS: VBG Base Excess -0.3 mmol/L (-2.4-2.3); VBG HCO3 26.7 mmol/L (23-30); VBG Oxygen Saturation 50.4 % (50-70); VBG PCO2 60.3 mmol/L (35-51); VBG PH 7.26 mmol/L (7.31-7.41); VBG Total CO2 28.5 mmol/L (23-27)
[2023-07-06 13:19] LABS: Lactate Venous 5.3 mmol/L (0.4-2.0)
[2023-07-06 13:24] LABS: Basophils # 0.3 K/mm3 (0-0.2); Basophils % 1.5 % (0.1-2.0); Eosinophils # 0.1 K/mm3 (0.0-0.4); Eosinophils % 0.3 % (0.1-12.0); Hematocrit 55.9 % (42.0-52.0); Hemoglobin 16.7 g/dL (14.1-18.0); Lymphocytes # 0.9 K/mm3 (0.7-4.5); Lymphocytes % 4.4 % (10-50); Mean Corpuscular HGB Conc 29.8 g/dL (31.8-35.4); Mean Corpuscular Hemoglobin 31.8 pg (27.0-31.2); Mean Corpuscular Volume 106.7 fl (80-94); Mean Platelet Volume 8.9 fl (7.4-10.4); Monocytes # 0.4 K/mm3 (0.1-1.0); Monocytes % 2.1 % (1.7-9.3); Neutrophils # 19.6 K/mm3 (1.8-7.8); Neutrophils % 91.8 % (37.0-80.0); Platelet Count 317 K/mm3 (142-424); Red Blood Count 5.24 M/mm3 (4.60-6.20); Red Cell Distribution Width 14.4 % (11.5-17.5); White Blood Count 21.4 K/mm3 (4.8-10.8)
[2023-07-06 13:26] LABS: MANUAL DIFFERENTIAL MANUAL DIFFERENTIAL (MANUAL DIFF)
[2023-07-06] MEDS: METHYLPREDNISOLONE SOD SUCC 125MG VIAL 125 MG IV (13:27)
[2023-07-06] MEDS: CEFTRIAXONE SODIUM 2 GM in 0.9 % SODIUM CHLORIDE 100 ML IV (13:27)
[2023-07-06] MEDS: VANCOMYCIN CONSULT REQUEST 1 EACH NOTAPPLIC (13:27)
[2023-07-06] MEDS: ACETAMINOPHEN 1,000MG/100ML VIAL 1000 MG IV (13:27)
[2023-07-06] MEDS: LACTATED RINGERS 1000ML 2,330 ML 1165 ML IV (13:28)
[2023-07-06 13:30] LABS: ABG Base Excess -3.1 mmol/L (-2.4-2.3); ABG HCO3 23.3 mmhg (22.0-26.0); ABG Oxygen Saturation 90 % (90-100); ABG PCO2 47.8 mmhg (35.0-45.0); ABG PH 7.31 mmol/L (7.35-7.45); ABG PO2 67.7 mmhg (80-100); ABG TCO2 24.7 mmhg (23-27)
[2023-07-06 13:32] LABS: Adenovirus,PCR Not Detected (NotDetected); Coronavirus 19, PCR Not Detected (NotDetected); Coronavirus 229E Not Detected (NotDetected); Coronavirus NL63 Not Detected (NotDetected); Coronavirus OC43 Not Detected (NotDetected); Coronovirus HKU1,PCR Not Detected (NotDetected); Human Metapneumovirus Not Detected (NotDetected); Influenza A, PCR Not Detected (NotDetected); Influenza AH1, 2009 Not Detected (NotDetected); Influenza AH1, PCR Not Detected (NotDetected); Influenza AH3,PCR Not Detected (NotDetected); Influenza B, PCR Not Detected (NotDetected); Parainfluenza 1, PCR Not Detected (NotDetected); Parainfluenza 2, PCR Not Detected (NotDetected); Parainfluenza 3, PCR Not Detected (NotDetected); Parainfluenza 4, PCR Not Detected (NotDetected); Respiratory Syncytial Virus Not Detected (NotDetected); Rhinovirus/Enterovirus Not Detected (NotDetected)
[2023-07-06 13:36] LABS: Microscopic, Urine URINE MICROSCOPIC (MICROSCOPIC)
[2023-07-06] MEDS: IPRATROPIUM/ALBUTEROL 3 ML NEB 24 ML IH (13:39)
--- NOTE | 2023-07-06 13:39 | PC.NURSE ---
PT ARRIVED VIA EMS ON 6L NC NOTED AT 81%. PT BASELINE IS 4L NC. PT WAS PLACED ON NONREBREATHER THEN BIPAP PER ER MD REQUEST NOTED AT 92% TOLERATING WELL.
[2023-07-06 13:44] LABS: Oxygen 100% %
[2023-07-06 13:45] LABS: Allen's Test Acceptable; Pressure Support 18/8; Source Left Radial
[2023-07-06 13:46] LABS: Appearance,Urine CLEAR (Clear); Blood, Urine TRACE-I (Negative); Color,Urine YELLOW (Yellow); Glucose,Urine (UA) Negative (Negative); Ketones,Urine Negative (Negative); Leukocyte Esterase,Urine Negative (Negative); Nitrate,Urine Negative (Negative); Protein,Urine 1+ (Negative); Specific Gravity, Urine 1.025 (1.005-1.030)
[2023-07-06 13:50] LABS: Bilirubin,Urine Negative (Negative)
[2023-07-06 13:51] LABS: WBC,Urine Occasional #/hpf (0-3)
[2023-07-06] MEDS: VANCOMYCIN/WATER FOR INJ (PEG) 1.25 GM/250 ML PIGGYBACK IV (13:56)
--- NOTE | 2023-07-06 13:58 | ECG_ITS ---
APPROVED REPORT Exam: Resting ECG HR:212 bpm ECG Measurements Heart Rate 212 AXES QRSd 90 QRS 73 QT 192 T 22 QTc [address] & T-WAVE ABNORMALITY CRITICAL TEST RESULT Electronically signed by : MIGUEL ANGEL HART, 07/06/2023 15:15:44
--- NOTE | 2023-07-06 13:59 | ECG_ITS ---
APPROVED REPORT Exam: Resting ECG HR:149 bpm ECG Measurements Heart Rate 149 AXES QRSd 88 QRS 72 QT 292 T 73 QTc 377 Conclusion SINUS ARRHYTHMIA NONSPECIFIC ST & T-WAVE ABNORMALITY ABNORMAL RHYTHM ECG Electronically signed by : MIGUEL ANGEL HART, 07/06/2023 15:17:26
[2023-07-06 14:11] LABS: Alanine Aminotransferase 40 U/L (12-78); Albumin Level 2.7 g/dl (3.5-5.0); Albumin/Globulin Ratio 0.8 (1.1-1.8); Alkaline Phosphatase 166 U/L (38-126); Anion Gap 14.4 mEq/L (5-15); Aspartate Amino Transferase 83 U/L (17-59); Bilirubin,Total 1.3 mg/dl (0.2-1.3); Blood Urea Nitrogen 60 mg/dl (9-20); Calcium 8.3 mg/dl (8.4-10.2); Carbon Dioxide 24 mmol/L (22.0-30.0); Chloride 97 mmol/L (98-107); Creatine Kinase 28 U/L (55-170); Creatinine Clearance Estimated 50 mL/min (50-200); Estimated Glomerular Filt Rate 51 ml/min (>60); GFR (African American) 61 ML/MIN (>60); Globulin 3.5 g/dL (1.3-3.2); Glucose 122 mg/dl (74-100); Potassium 3.4 mmoL/L (3.5-5.1); Sodium 132 mmol/L (136-145); Total Protein,Serum 6.2 g/dl (6.3-8.2)
[2023-07-06 14:27] LABS: Troponin I 0.42 ng/ml (0.00-0.034)
[2023-07-06] MEDS: IOPAMIDOL-370 (76%);100ML BOTTLE 75 ML IV (14:49)
[2023-07-06] MEDS: 0.9 % SODIUM CHLORIDE 50 ML VIAL IV (14:49)
[2023-07-06] MEDS: SODIUM CHLORIDE 0.9% 10ML SYR (RAD ONLY) 10 ML IV (14:50)
--- NOTE | 2023-07-06 14:54 | PC.NURSE ---
CARDIOLOGY AT BEDSIDE
--- NOTE | 2023-07-06 15:36 | P.PN_ITS ---
Subjective Subjective Date: 07/06/23 Time: 15:36 Interval history: ER note: In summary patient is a 67-year-old male with past medical history described above who presents emergency department for evaluation of shortness of breath. Patient is an extremis upon arrival, hypoxic on nonrebreather. Intermittent saturations are in the 90s and difficult to ascertain baseline given cold extremities. Patient is in cold shock, extreme sinus tachycardia. Differential includes severe pneumonia, COPD exacerbation, pulmonary embolism, atypical ACS, among others. Workup will be conducted with hematologic labs, CTA chest. Patient was placed on BiPAP immediately and DuoNebs were ran through the circuit. Broad-spectrum antibiotics and sepsis bolus fluids will be initiated given normal ejection fraction April. CTA from May shows nonoccluding pu lmonary emboli into segmental arteries of the right lower lobe with light thrombus burden. Upon repeat evaluation patient had improved air movement, improving tachypnea on BiPAP, resolving tachycardia however he does have intermittent SVT with heart rate greater than 200. I suspect this is due to critical illness and beta agonism through the BiPAP circuit with albuterol. Initial workup reviewed by me, hematologic labs significantly elevated 21.4 white blood cell count with left shift. Remarkably compensated VBG with the exception of elevated lactate 5.3. No critical electrolyte abnormalities, elevated creatinine that does not meet RUBENS per rifle criteria. Patient does have significant troponin 0.42 which I suspect is either secondary to sepsis versus pulmonary embolism. Given improved hemodynamics patient is appropriate for transport on BiPAP to CT scan at this time. CT imaging informally interpreted by me, no saddle embolism, significant right lower lobe pneumonia and is already on appropriate antibiotics. The case was discussed with cardiology who will evaluate the patient. Formal read pending at time of transfer of care to the oncoming physician, Dr. Proctor. Patient will require admission to the hospital for sepsis secondary to pneumonia. Cards Note: This is a 67-year-old white male with past medical history of COPD on 4 L at home, diabetes, hypertension, nonobstructive CAD, hyperlipidemia and recent LLL PE June 2023 who presented to emergency department with complaints of shortness of breath. Family reported to staff that patient has been in bed x 1 week with soa and cough. Upon arrival, patient noted to be hypoxic and requiring a nonrebreather. EKG upon arrival shows sinus tach without acute ischemic changes noted. Labs as follow: WBC 21.4, hemoglobin 16.7, lactic acid 5.3, sodium 132, potassium 3.4, creatinine 1.4, AST 83, alk phos 166, total creatinine kinase 28, first troponin 0.42. CTA chest has been obtained and of ficial read is pending, preliminary read per ER doctor is negative for PE but does show a right lower lobe pneumonia. Cardiology was asked to consult for elevated troponin and tachycardia. Patient will be admitted to primary service for sepsis and pneumonia. Exam Data for Last 24 hours Vital signs and Labs for Last 24 Hours: Temp Pulse Resp BP Pulse Ox O2 Del Method O2 Flow Rate 100.5 F H 135 H 22 132/63 99 BiPAP 6 07/06/23 12:55 07/06/23 14:30 07/06/23 14:30 07/06/23 14:30 07/06/23 14:30 07/06/23 14:30 07/06/23 12:55 FiO2 100 07/06/23 14:49 Laboratory Results - last 24 hr 07/06/23 13:09: WBC 21.4 H*, RBC 5.24, Hgb 16.7, Hct 55.9 H, MCV 106.7 H, MCH 31.8 H, MCHC 29.8 L, RDW 14.4, Plt Count 317, MPV 8.9, Neut % (Auto) 91.8 H, Lymph % (Auto) 4.4 L, [place] % (Auto) 2.1, Eos % (Auto) 0.3, Baso % (Auto) 1.5, Neut # (Auto) 19.6 H, Lymph # (Auto) 0.9, [place] # (Auto) 0.4, Eos # (Auto) 0.1, Baso # (Auto) 0.3 H 07/06/23 13:17: VBG pH 7.26 L, VBG pCO2 60.3 H, VBG pO2 34.0, VBG HCO3 26.7, VBG Total CO2 28.5 H, VBG O2 Saturation 50.4, VBG Base Excess -0.3, VBG Lactic Acid 5.3 H 07/06/23 13:25: Specimen Source Left radial, O2 % 100%, ABG pH 7.31 L, ABG pCO2 47.8 H, ABG pO2 67.7 L, ABG HCO3 23.3, ABG Total CO2 24.7, ABG O2 Saturation 90, ABG Base Excess -3.1 L, Sukumar Test Acceptable 07/06/23 13:26: Urine Color Yellow, Urine Appearance Clear, Urine pH 6.0, Ur Specific [place] 1.025, Urine Protein 1+, Urine Glucose (UA) Negative, Urine Ketones Negative, Urine Blood Trace-i, Urine Nitrate Negative, Urine Bilirubin Negative, Urine Urobilinogen 1.0, Ur Leukocyte Esterase Negative, Urine RBC None, Urine WBC Occasional, Ur Squamous Epith Cells None, Urine Bacteria None 07/06/23 13:45: Sodium 132 L, Potassium 3.4 L, Chloride 97 L, Carbon Dioxide 24, Anion Gap 14.4, BUN 60 H, Creatinine 1.40 H, Estimated Creat Clear 50, Estimated GFR 51 L, Est GFR ( Amer) 61, Glucose 122 H, Calcium 8.3 L, Total Bilirubin 1.3, AST 83 H, ALT 40, Alkaline Phosphatase 166 H, Total Creatine Kinase 28 L, Troponin I 0.42 H, Total Protein 6.2 L, Albumin 2.7 L, Globulin 3.5 H, Albumin/Globulin Ratio 0.8 L I & O for Last 24 hours: Intake & Output 07/03/23 07/04/23 07/05/23 07/06/23 23:59 23:59 23:59 23:59 Weight 151 lb 8 oz Constitutional Constitutional: thin and chronically ill appearing Comments: cool to touch *Routine Respiratory Exam Respiratory: Present rhonchi and wheezes *Routine Cardiovascular Exam Cardiovascular: Present tachycardia *Routine Extremities Exam Extremities: Present cyanosis Comments: mottled and cool to touch. Progress Note: A&P Assessment and plan (1) Severe sepsis: Status: Acute (2) Sepsis due to pneumonia: Status: Acute (3) Pulmonary embolism: Status: Acute (4) Acute respiratory failure with hypoxia and hypercarbia: Status: Acute (5) Lung mass: Status: Acute (6) CAD (coronary artery disease): Status: Acute Assessment and Plan Assessment and Plan for All Diagnoses:: Mild nonocclusive coronary artery disease Acute myocardial injury in the setting of acute illness -Troponin elevated at 0.42 -EKG negative for STEMI -Underwent left heart catheterization April 2023 which revealed mild nonocclusive coronary artery disease with normal ejection fraction -No plan for intervention at this time -Continue aspirin 81 mg p.o. daily, atorvastatin 40 mg p.o. daily, bisoprolol 5 mg p.o. daily Chronic HFpEF Mild pulmonary HTN Mild diastolic dysfunction -Patient underwent RHC Apr 2023 -Echo 04/2023-normal LV systolic function, mildly dilated RV with mild reduction in RV systolic function, mild TR, RVSP 25 -Continue Lasix 40 mg p.o. daily as blood pressure will allow. Tachycardia In the setting of acute sepsis -Patient is having sinus tachycardia secondary to acute sepsis -Recommend treating underlying illness and heart rate should improve History of pulmonary embolism -Official CTA chest is pending preliminary read does not show PE. -Continue Eliquis 5 mg p.o. twice daily Acute hypoxic respiratory failure Pneumonia Sepsis -Will defer management to primary service and pulmonology CV summary 07/06/2023: Elevated troponin and tachycardia likely secondary to sepsis and pneumonia. No plan for intervention at this point given recent cath which revealed mild nonobstructive CAD. Will defer management of sepsis and pneumonia to primary service and pulmonology. Cardiology will sign off, please contact cardiology with any further concerns.
--- NOTE | 2023-07-06 15:38 | PC.NURSE ---
rounded on pt, nurse in the room at this time.
[2023-07-06 15:45] LABS: Lymphocytes % 5 % (10-50); Monocytes % 1 % (2-9); Neutrophils % 94 % (42-76); Total Cells Counted 100
[2023-07-06 15:46] LABS: Macrocytosis 1+; Platelet Estimate Normal; Stomatocytes 1+
--- NOTE | 2023-07-06 16:14 | EXP.CARD.CON ---
History of Present Illness History of Present Illness Consult date: 07/06/23 Requesting physician: Hernan Tam Chief complaint: cough, soa History of present illness: ER note: In summary patient is a 67-year-old male with past medical history described above who presents emergency department for evaluation of shortness of breath. Patient is an extremis upon arrival, hypoxic on nonrebreather. Intermittent saturations are in the 90s and difficult to ascertain baseline given cold extremities. Patient is in cold shock, extreme sinus tachycardia. Differential includes severe pneumonia, COPD exacerbation, pulmonary embolism, atypical ACS, among others. Workup will be conducted with hematologic labs, CTA chest. Patient was placed on BiPAP immediately and DuoNebs were ran through the circuit. Broad-spectrum antibiotics and sepsis bolus fluids will be initiated given normal ejection fraction April. CTA from May shows nonoccluding pulmonary emboli into segmental arteries of the right lower lobe with light thrombus burden. Upon repeat evaluation patient had improved air movement, improving tachypnea on BiPAP, resolving tachycardia however he does have intermittent SVT with heart rate greater than 200. I suspect this is due to critical illness and beta agonism through the BiPAP circuit with albuterol. Initial workup reviewed by me, hematologic labs significantly elevated 21.4 white blood cell count with left shift. Remarkably compensated VBG with the exception of elevated lactate 5.3. No critical electrolyte abnormalities, elevated creatinine that does not meet RUBENS per rifle criteria. Patient does have significant troponin 0.42 which I suspect is either secondary to sepsis versus pulmonary embolism. Given improved hemodynamics patient is appropriate for transport on BiPAP to CT scan at this time. CT imaging informally interpreted by me, no saddle embolism, significant right lower lobe pneumonia and is already on appropriate antibiotics. The case was discussed with cardiology who will evaluate the patient. Formal read pending at time of transfer of care to the oncoming physician, Dr. Proctor. Patient will require admission to the hospital for sepsis secondary to pneumonia. Cards Note: This is a 67-year-old white male with past medical history of COPD on 4 L at home, diabetes, hypertension, nonobstructive CAD, hyperlipidemia and recent LLL PE June 2023 who presented to emergency department with complaints of shortness of breath. Family reported to staff that patient has been in bed x 1 week with soa and cough. Upon arrival, patient noted to be hypoxic and requiring a nonrebreather. EKG upon arrival shows sinus tach without acute ischemic changes noted. Labs as follow: WBC 21.4, hemoglobin 16.7, lactic acid 5.3, sodium 132, potassium 3.4, creatinine 1.4, AST 83, alk phos 166, total creatinine kinase 28, first troponin 0.42. CTA chest has been obtained and official read is pending, preliminary read per ER doctor is negative for PE but does show a right lower lobe pneumonia. Cardiology was asked to consult for elevated troponin and tachycardia. Patient will be admitted to primary service for sepsis and pneumonia. [facility] Disclaimer: The information contained in this section may have been updated after the patient was seen, as this information can be updated by other users. Medical History (Updated 07/06/23 @ 16:05 by Reynaldo Proctor MD) Pulmonary embolism Acute respiratory failure with hypoxia and hypercarbia Cough CAD in [place] artery Hilar lymphadenopathy Nodule of right lung Shortness of Breath Atypical angina Coronary artery calcification seen on CAT scan Pneumonia CAP (community acquired pneumonia) Alcohol use disorder, severe, in early remission Tobacco dependence COPD (chronic obstructive pulmonary disease) Hyperlipidemia Hypertension Obesity (BMI 30-39.9) Surgical History History of colonoscopy Family History Mother Lung cancer Father COPD (chronic obstructive pulmonary disease) Social History Smoking Status: Never smoker second hand exposure: No alcohol intake: current current occupational status: disabled Travel in the last 8 weeks: None household members: significant other caffeine: No Review of Systems Review of Systems Review of systems:: pertinent systems reviewed and negative unless documented below *Cardiovascular Cardiovascular: Denies chest pain and Reports dyspnea *Respiratory Respiratory: Reports cough and Reports dyspnea Exam Data for Last 24 hours Vital signs and Labs for Last 24 Hours: Temp Pulse Resp BP Pulse Ox O2 Del Method O2 Flow Rate 100.5 F H 61 28 H 95/66 L 98 BiPAP 6 07/06/23 12:55 07/06/23 15:45 07/06/23 15:45 07/06/23 15:45 07/06/23 15:45 07/06/23 15:45 07/06/23 12:55 FiO2 100 07/06/23 14:49 Laboratory Results - last 24 hr 07/06/23 13:09: WBC 21.4 H*, RBC 5.24, Hgb 16.7, Hct 55.9 H, MCV 106.7 H, MCH 31.8 H, MCHC 29.8 L, RDW 14.4, Plt Count 317, MPV 8.9, Neut % (Auto) 91.8 H, Lymph % (Auto) 4.4 L, [place] % (Auto) 2.1, Eos % (Auto) 0.3, Baso % (Auto) 1.5, Neut # (Auto) 19.6 H, Lymph # (Auto) 0.9, [place] # (Auto) 0.4, Eos # (Auto) 0.1, Baso # (Auto) 0.3 H, Total Counted 100, Neutrophils % (Manual) 94 H, Lymphocytes % (Manual) 5 L, Monocytes % (Manual) 1 L, Platelet Estimate Normal, RBC Morphology Not Reportable, Macrocytosis 1+, Stomatocytes 1+ 07/06/23 13:17: VBG pH 7.26 L, VBG pCO2 60.3 H, VBG pO2 34.0, VBG HCO3 26.7, VBG Total CO2 28.5 H, VBG O2 Saturation 50.4, VBG Base Excess -0.3, VBG Lactic Acid 5.3 H 07/06/23 13:18: Chlamy pneumoniae PCR TNP, Adenovirus (PCR) Not detected, B. pertussis DNA (PCR) TNP, Coronavirus OC43 (PCR) Not detected, Coronavirus HKU1 (PCR) Not detected, Coronavirus 229E (PCR) Not detected, SARS-CoV-2 (PCR) Not detected, Coronavirus NL63 (PCR) Not detected, Human Metapneumovir PCR Not detected, Influenza A (H1) PCR Not detected, Influ A (H1N1/09) PCR Not detected, Influenza A (H3) PCR Not detected, Influenza Type A (PCR) Not detected, Influenza Type B (PCR) Not detected, M. pneumoniae (PCR) TNP, Parainfluenza 1 (PCR) Not detected, Parainfluenza 2 (PCR) Not detected, Parainfluenza 3 (PCR) Not detected, Parainfluenza 4 (PCR) Not detected, RSV (PCR) Not detected, Entero/Rhino (PCR) Not detected 07/06/23 13:25: Specimen Source Left radial, O2 % 100%, ABG pH 7.31 L, ABG pCO2 47.8 H, ABG pO2 67.7 L, ABG HCO3 23.3, ABG Total CO2 24.7, ABG O2 Saturation 90, ABG Base Excess -3.1 L, Sukumar Test Acceptable 07/06/23 13:26: Urine Color Yellow, Urine Appearance Clear, Urine pH 6.0, Ur Specific [place] 1.025, Urine Protein 1+, Urine Glucose (UA) Negative, Urine Ketones Negative, Urine Blood Trace-i, Urine Nitrate Negative, Urine Bilirubin Negative, Urine Urobilinogen 1.0, Ur Leukocyte Esterase Negative, Urine RBC None, Urine WBC Occasional, Ur Squamous Epith Cells None, Urine Bacteria None 07/06/23 13:45: Sodium 132 L, Potassium 3.4 L, Chloride 97 L, Carbon Dioxide 24, Anion Gap 14.4, BUN 60 H, Creatinine 1.40 H, Estimated Creat Clear 50, Estimated GFR 51 L, Est GFR ( Amer) 61, Glucose 122 H, Calcium 8.3 L, Total Bilirubin 1.3, AST 83 H, ALT 40, Alkaline Phosphatase 166 H, Total Creatine Kinase 28 L, Troponin I 0.42 H, Total Protein 6.2 L, Albumin 2.7 L, Globulin 3.5 H, Albumin/Globulin Ratio 0.8 L I & O for Last 24 hours: Intake & Output 07/03/23 07/04/23 07/05/23 07/06/23 23:59 23:59 23:59 23:59 Weight 151 lb 8 oz Constitutional Constitutional: thin and chronically ill appearing *Routine Respiratory Exam Respiratory: Present wheezes *Routine Cardiovascular Exam Cardiovascular: Present tachycardia *Routine Extremities Exam Comments: mottled and cool LE. + bilateral pulses present. Meds Home Medications and Allergies Home Medications Medication Instructions Recorded Confirmed Type albuterol sulfate 90 mcg/actuation 2 puffs IH Q4HP PRN Shortness Of 03/24/20 05/22/23 History aerosol inhaler Breath Or Wheezing amlodipine 10 mg tablet 10 mg PO DAILY High Blood Pressure 03/24/20 05/22/23 History escitalopram oxalate 20 mg tablet 20 mg PO DAILY Mood 03/24/20 05/22/23 History pantoprazole 40 mg tablet,delayed 40 mg PO DAILY Acid Reflux 08/12/22 05/22/23 History release ipratropium 20 mcg-albuterol 100 1 puff inhalation QID Breathing 04/06/23 05/22/23 History mcg/actuation mist for inhalation Problems (Combivent Respimat) aspirin 81 mg tablet,delayed 81 mg PO DAILY Heart Health 05/22/23 05/22/23 History release atorvastatin 40 mg tablet 40 mg PO HS Cholesterol 05/22/23 05/22/23 History bisoprolol fumarate 5 mg tablet 5 mg PO DAILY High Blood Pressure 05/22/23 05/22/23 History fluticasone fur. 100 mcg-umeclid 1 inh inhalation DAILY Breathing 05/22/23 05/22/23 History 62.5 mcg-vilant 25 mcg Problems inhalat.powder (Trelegy Ellipta) folic acid 1 mg tablet 1 mg PO DAILY Supplement 05/22/23 05/22/23 History furosemide 40 mg tablet 40 mg PO DAILY Fluid 05/22/23 05/22/23 History nicotine 21 mg/24 hr daily 21 mg transdermal DAILY Smoking 05/22/23 05/22/23 History transdermal patch Cessation apixaban 5 mg tablet (Eliquis) See Rx Instructions .Route 05/25/23 Rx .COMPLEX 30 days #74 tabs hydroxyzine pamoate 25 mg capsule 25 mg PO Q6HP PRN Itching 10 days 05/25/23 Rx #40 caps levofloxacin 750 mg tablet 750 mg PO 1100 5 days #5 tabs 05/25/23 Rx New Prescriptions to Start Prescriptions: Allergies Allergy/AdvReac Type Severity Reaction Status Date / Time erythromycin base Allergy Unknown NA-NAUSEA/V Verified 07/06/23 13:24 [ERYTHROMYCIN BASE] OMITING Assessment and Plan *Assessment and plan (1) CAD (coronary artery disease): Status: Acute Category: Medical Code(s): I25.10 - Atherosclerotic heart disease of [place] coronary artery without angina pectoris (2) Acute hypoxemic respiratory failure: Status: Acute Category: Medical Code(s): J96.01 - Acute respiratory failure with hypoxia (3) Severe sepsis: Status: Acute Category: Medical Code(s): A41.9 - Sepsis, unspecified organism; R65.20 - Severe sepsis without septic shock (4) Pulmonary embolism: Status: Acute Qualifiers: Pulmonary embolism type: other Chronicity: acute Acute cor pulmonale presence: without acute cor pulmonale Qualified Code(s): I26.99 - Other pulmonary embolism without acute cor pulmonale Category: Medical Code(s): I26.99 - Other pulmonary embolism without acute cor pulmonale (5) Acute on chronic hypoxic respiratory failure: Status: Acute Category: Medical Code(s): J96.21 - Acute and chronic respiratory failure with hypoxia Plan Mild nonocclusive coronary artery disease Acute myocardial injury in the setting of acute illness -Troponin elevated at 0.42 -EKG negative for STEMI -Underwent left heart catheterization April 2023 which revealed mild nonocclusive coronary artery disease with normal ejection fraction -No plan for intervention at this time -Continue aspirin 81 mg p.o. daily, atorvastatin 40 mg p.o. daily, bisoprolol 5 mg p.o. daily Chronic HFpEF Mild pulmonary HTN Mild diastolic dysfunction -Patient underwent RHC Apr 2023 -Echo 04/2023-normal LV systolic function, mildly dilated RV with mild reduction in RV systolic function, mild TR, RVSP 25 -Continue Lasix 40 mg p.o. daily as blood pressure will allow. Tachycardia In the setting of acute sepsis -Patient is having sinus tachycardia secondary to acute sepsis -Recommend treating underlying illness and heart rate should improve History of pulmonary embolism -Official CTA chest is pending preliminary read does not show PE. -Continue Eliquis 5 mg p.o. twice daily Acute hypoxic respiratory failure Pneumonia Sepsis -Will defer management to primary service and pulmonology CV summary 07/06/2023: Elevated troponin and tachycardia likely secondary to sepsis and pneumonia. No plan for intervention at this point given recent cath which revealed mild nonobstructive CAD. Will defer management of sepsis and pneumonia to primary service and pulmonology. Cardiology will sign off, please contact cardiology with any further concerns.
--- NOTE | 2023-07-06 16:25 | PC.NURSE ---
CALLED REPORT TO AMBER BECERRA
--- NOTE | 2023-07-06 16:44 | PC.NURSE ---
AMBER ASKED TO KEEP PT IN THE ER [id number] SO SHE COULD GIVE REPORT TO ANOTHER NURSE ON SOME PATIENTS SHE HAS. HOUSE AWARE. ALSO TOLD AMBER PT HAS HAD 2 OF 3 BAGS OF LR FOR SEPSIS BOLUS. NEEDS 330 OF 3RD BAG. AMBER VERBALIZED UNDERSTANDING.
--- NOTE | 2023-07-06 16:47 | PC.NURSE ---
awaiting on rt for transfer to the floor
--- NOTE | 2023-07-06 16:55 | PC.NURSE ---
Pt arrived to the floor at this time via stretcher
[2023-07-06 17:18] LABS: Reflex Lactic Add Lactic Reflex
--- NOTE | 2023-07-06 17:20 | EXP.HP ---
History of Present Illness *Admission Date: 07/06/23 *Reason for visit:: SOB *History of present illness: Patient patient is a 67-year-old male with past medical history of CAD, pulmonary embolism on Eliquis, COPD on 4 to 6 L nasal cannula at home, hypertension hyperlipidemia who presents to the hospital due to shortness of breath, patient mentions his shortness of breath is getting worse and it has not been improving with home and other therapies so he decided to come to the hospital. He also has been having cough productive of yellowish phlegm patient otherwise denied chest pain nausea vomiting diarrhea constipation dysuria. On further evaluation in the emergency department patient was found to have a troponin, elevated WBC count as well as hypoxia requiring BiPAP. [facility] Disclaimer: The information contained in this section may have been updated after the patient was seen, as this information can be updated by other users. Medical History (Updated 07/06/23 @ 16:05 by Reynaldo Proctor MD) Pulmonary embolism Acute respiratory failure with hypoxia and hypercarbia Cough CAD in [place] artery Hilar lymphadenopathy Nodule of right lung Shortness of Breath Atypical angina Coronary artery calcification seen on CAT scan Pneumonia CAP (community acquired pneumonia) Alcohol use disorder, severe, in early remission Tobacco dependence COPD (chronic obstructive pulmonary disease) Hyperlipidemia Hypertension Obesity (BMI 30-39.9) Surgical History History of colonoscopy Family History Mother Lung cancer Father COPD (chronic obstructive pulmonary disease) Social History Smoking Status: Never smoker second hand exposure: No alcohol intake: current current occupational status: disabled Travel in the last 8 weeks: None household members: significant other caffeine: No Review of Systems Review of Systems Review of systems (narrative): as per HPI Meds Home Medications and Allergies Home Medications Medication Instructions Recorded Confirmed Type albuterol sulfate 90 mcg/actuation 2 puffs IH Q4HP PRN Shortness Of 03/24/20 05/22/23 History aerosol inhaler Breath Or Wheezing amlodipine 10 mg tablet 10 mg PO DAILY High Blood Pressure 03/24/20 05/22/23 History escitalopram oxalate 20 mg tablet 20 mg PO DAILY Mood 03/24/20 05/22/23 History pantoprazole 40 mg tablet,delayed 40 mg PO DAILY Acid Reflux 08/12/22 05/22/23 History release ipratropium 20 mcg-albuterol 100 1 puff inhalation QID Breathing 04/06/23 05/22/23 History mcg/actuation mist for inhalation Problems (Combivent Respimat) aspirin 81 mg tablet,delayed 81 mg PO DAILY Heart Health 05/22/23 05/22/23 History release atorvastatin 40 mg tablet 40 mg PO HS Cholesterol 05/22/23 05/22/23 History bisoprolol fumarate 5 mg tablet 5 mg PO DAILY High Blood Pressure 05/22/23 05/22/23 History fluticasone fur. 100 mcg-umeclid 1 inh inhalation DAILY Breathing 05/22/23 05/22/23 History 62.5 mcg-vilant 25 mcg Problems inhalat.powder (Trelegy Ellipta) folic acid 1 mg tablet 1 mg PO DAILY Supplement 05/22/23 05/22/23 History furosemide 40 mg tablet 40 mg PO DAILY Fluid 05/22/23 05/22/23 History nicotine 21 mg/24 hr daily 21 mg transdermal DAILY Smoking 05/22/23 05/22/23 History transdermal patch Cessation apixaban 5 mg tablet (Eliquis) See Rx Instructions .Route 05/25/23 Rx .COMPLEX 30 days #74 tabs hydroxyzine pamoate 25 mg capsule 25 mg PO Q6HP PRN Itching 10 days 05/25/23 Rx #40 caps levofloxacin 750 mg tablet 750 mg PO 1100 5 days #5 tabs 05/25/23 Rx New Prescriptions to Start Prescriptions: Allergies Allergy/AdvReac Type Severity Reaction Status Date / Time erythromycin base Allergy Unknown NA-NAUSEA/V Verified 07/06/23 13:24 [ERYTHROMYCIN BASE] OMITING Exam Data for Last 24 hours Vital signs and Labs for Last 24 Hours: Temp Pulse Resp BP Pulse Ox O2 Del Method O2 Flow Rate 100.5 F H 115 H 22 102/75 L 97 Room Air 6 07/06/23 16:51 07/06/23 16:51 07/06/23 16:51 07/06/23 16:51 07/06/23 16:42 07/06/23 16:51 07/06/23 12:55 FiO2 100 07/06/23 14:49 Laboratory Results - last 24 hr 07/06/23 13:09: WBC 21.4 H*, RBC 5.24, Hgb 16.7, Hct 55.9 H, MCV 106.7 H, MCH 31.8 H, MCHC 29.8 L, RDW 14.4, Plt Count 317, MPV 8.9, Neut % (Auto) 91.8 H, Lymph % (Auto) 4.4 L, [place] % (Auto) 2.1, Eos % (Auto) 0.3, Baso % (Auto) 1.5, Neut # (Auto) 19.6 H, Lymph # (Auto) 0.9, [place] # (Auto) 0.4, Eos # (Auto) 0.1, Baso # (Auto) 0.3 H, Total Counted 100, Neutrophils % (Manual) 94 H, Lymphocytes % (Manual) 5 L, Monocytes % (Manual) 1 L, Platelet Estimate Normal, RBC Morphology Not Reportable, Macrocytosis 1+, Stomatocytes 1+ 07/06/23 13:17: VBG pH 7.26 L, VBG pCO2 60.3 H, VBG pO2 34.0, VBG HCO3 26.7, VBG Total CO2 28.5 H, VBG O2 Saturation 50.4, VBG Base Excess -0.3, VBG Lactic Acid 5.3 H 07/06/23 13:18: Chlamy pneumoniae PCR TNP, Adenovirus (PCR) Not detected, B. pertussis DNA (PCR) TNP, Coronavirus OC43 (PCR) Not detected, Coronavirus HKU1 (PCR) Not detected, Coronavirus 229E (PCR) Not detected, SARS-CoV-2 (PCR) Not detected, Coronavirus NL63 (PCR) Not detected, Human Metapneumovir PCR Not detected, Influenza A (H1) PCR Not detected, Influ A (H1N1/09) PCR Not detected, Influenza A (H3) PCR Not detected, Influenza Type A (PCR) Not detected, Influenza Type B (PCR) Not detected, M. pneumoniae (PCR) TNP, Parainfluenza 1 (PCR) Not detected, Parainfluenza 2 (PCR) Not detected, Parainfluenza 3 (PCR) Not detected, Parainfluenza 4 (PCR) Not detected, RSV (PCR) Not detected, Entero/Rhino (PCR) Not detected 07/06/23 13:25: Specimen Source Left radial, O2 % 100%, ABG pH 7.31 L, ABG pCO2 47.8 H, ABG pO2 67.7 L, ABG HCO3 23.3, ABG Total CO2 24.7, ABG O2 Saturation 90, ABG Base Excess -3.1 L, Sukumar Test Acceptable 07/06/23 13:26: Urine Color Yellow, Urine Appearance Clear, Urine pH 6.0, Ur Specific [place] 1.025, Urine Protein 1+, Urine Glucose (UA) Negative, Urine Ketones Negative, Urine Blood Trace-i, Urine Nitrate Negative, Urine Bilirubin Negative, Urine Urobilinogen 1.0, Ur Leukocyte Esterase Negative, Urine RBC None, Urine WBC Occasional, Ur Squamous Epith Cells None, Urine Bacteria None 07/06/23 13:45: Sodium 132 L, Potassium 3.4 L, Chloride 97 L, Carbon Dioxide 24, Anion Gap 14.4, BUN 60 H, Creatinine 1.40 H, Estimated Creat Clear 50, Estimated GFR 51 L, Est GFR ( Amer) 61, Glucose 122 H, Calcium 8.3 L, Total Bilirubin 1.3, AST 83 H, ALT 40, Alkaline Phosphatase 166 H, Total Creatine Kinase 28 L, Troponin I 0.42 H, Total Protein 6.2 L, Albumin 2.7 L, Globulin 3.5 H, Albumin/Globulin Ratio 0.8 L I & O for Last 24 hours: Intake & Output 07/03/23 07/04/23 07/05/23 07/06/23 23:59 23:59 23:59 23:59 Weight 67.585 kg Constitutional Constitutional: no acute distress *Routine HEENT Exam Head: Present normocephalic Eye: Present EOMI and PERRL ENT: Present mucous membranes moist *Routine Neck Exam Neck: Present supple; Absent lymphadenopathy *Routine Respiratory Exam Respiratory: Present respiratory distress, distant breath sounds and diminished air movement *Routine Cardiovascular Exam Cardiovascular: Present RRR *Routine Abdominal Exam Abdominal: Present soft and normoactive bowel sounds; Absent tenderness *Routine Rectal Exam Rectal:: deferred *Routine Genitalia Exam Genitalia:: deferred *Routine Extremities Exam Extremities: Absent cyanosis, clubbing or edema *Routine Skin Exam Skin: Present warm; Absent rash *Routine Neurological Exam Neurological: Present alert and oriented X3 Assessment and Plan *Assessment and plan (1) Acute hypoxemic respiratory failure: Status: Acute Category: Medical Code(s): J96.01 - Acute respiratory failure with hypoxia (2) CAD (coronary artery disease): Status: Acute Category: Medical Code(s): I25.10 - Atherosclerotic heart disease of [place] coronary artery without angina pectoris (3) Severe sepsis: Status: Acute Category: Medical Code(s): A41.9 - Sepsis, unspecified organism; R65.20 - Severe sepsis without septic shock (4) Sepsis due to pneumonia: Status: Acute Category: Medical Code(s): J18.9 - Pneumonia, unspecified organism; A41.9 - Sepsis, unspecified organism Plan Patient patient is a 67-year-old male with past medical history of CAD, pulmonary embolism on Eliquis, COPD on 4 to 6 L nasal cannula at home, hypertension hyperlipidemia who presents to the hospital due to shortness of breath, patient mentions his shortness of breath is getting worse and it has not been improving with home and other therapies so he decided to come to the hospital. He also has been having cough productive of yellowish phlegm patient otherwise denied chest pain nausea vomiting diarrhea constipation dysuria. On further evaluation in the emergency department patient was found to have a troponin, elevated WBC count as well as hypoxia requiring BiPAP. Assessment and plan Acute hypoxic respiratory failure satting less than 90% on room air Pneumonia Suspect COPD exacerbation Continue on BiPAP, wean as tolerated Start IV Levaquin Check PCT, urine Legionella antigen, urine strep swab Consult pulmonary service Start Solu-Medrol, DuoNebs every 4 CTA chest performed in the ED, does show right lung With near complete consolidation of right lower lung, negative for PE Elevated troponin likely demand ischemia Monitor troponin Monitor on cardiac telemetry Continue aspirin, statin Acute kidney injury Monitor creatinine Avoid nephrotoxic medications Monitor and replace electrolytes, monitor BMP Chronic heart failure with preserved ejection fraction Pulmonary hypertension History of PE Continue home Eliquis Echo 04/26 did show normal EF, preserved ejection fraction, grade 1 diastolic dysfunction, continue home Lasix DVT prophylaxis-on Eliquis
[2023-07-06 18:16] LABS: Lactic Acid Follow Up (RFLX 1) 7.9 mmol/L (0.7-2.1)
[2023-07-06 18:30] LABS: Procalcitonin 5.98 ng/mL (0.0-2.0)
[2023-07-06] MEDS: IPRATROPIUM/ALBUTEROL 3 ML NEB IH ×2 (18:39→22:04)
[2023-07-06] MEDS: LEVOFLOXACIN/D5W 500 MG/100 ML PIGGYBACK 100 MG IV (18:51)
[2023-07-06] MEDS: METHYLPREDNISOLONE SOD SUCC 40MG VIAL 40 MG IV ×2 (18:52→23:42)
[2023-07-06 19:47] LABS: Reflex Lactic (2 hrs) Add Lactic Reflex
[2023-07-06 19:53] LABS: Strep Scrn Group A (Rapid) Negative (Negative)
[2023-07-06 19:59] LABS: Lactic Acid Follow up (RFLX 2) 2.9 mmol/L (0.7-2.1)
[2023-07-06 20:28] LABS: Troponin I 0.38 ng/ml (0.00-0.034)
[2023-07-06] MEDS: ATORVASTATIN 40MG TABLET 40 MG PO (21:20)
[2023-07-07] VITALS (21 sets, daily range): BP systolic 92–122; BP diastolic 52–77; PULSE 68–105; RESP 16–34; TEMP 36.2–36.6; O2SAT 92–97; BMI 21.5; BMI 21.4
[2023-07-07 00:12] LABS: Troponin I 0.39 ng/ml (0.00-0.034)
[2023-07-07] MEDS: IPRATROPIUM/ALBUTEROL 3 ML NEB IH ×6 (02:26→21:54)
[2023-07-07] MEDS: METHYLPREDNISOLONE SOD SUCC 40MG VIAL 40 MG IV (05:22)
[2023-07-07 06:47] LABS: Chloride 97 mmol/L (98-107); Potassium 3.3 mmoL/L (3.5-5.1); Sodium 131 mmol/L (136-145)
[2023-07-07 06:49] LABS: Basophils # 0.1 K/mm3 (0-0.2); Eosinophils % 0.1 % (0.1-12.0); Lymphocytes # 0.5 K/mm3 (0.7-4.5); Platelet Count 272 K/mm3 (142-424)
[2023-07-07 06:50] LABS: Alanine Aminotransferase 32 U/L (12-78); Albumin Level 2.4 g/dl (3.5-5.0); Albumin/Globulin Ratio 0.8 (1.1-1.8); Alkaline Phosphatase 140 U/L (38-126); Anion Gap 9.3 mEq/L (5-15); Aspartate Amino Transferase 77 U/L (17-59); Bilirubin,Total 0.6 mg/dl (0.2-1.3); Blood Urea Nitrogen 66 mg/dl (9-20); Carbon Dioxide 28 mmol/L (22.0-30.0); Creatinine Clearance Estimated 46 mL/min (50-200); Estimated Glomerular Filt Rate 47 ml/min (>60); GFR (African American) 56 ML/MIN (>60); Globulin 3.1 g/dL (1.3-3.2); Total Protein,Serum 5.5 g/dl (6.3-8.2)
[2023-07-07 06:51] LABS: Calcium 8.2 mg/dl (8.4-10.2); Glucose 114 mg/dl (74-100)
[2023-07-07 06:54] LABS: Basophils % 0.8 % (0.1-2.0); Hematocrit 44.1 % (42.0-52.0); Lymphocytes % 3.3 % (10-50); Mean Corpuscular HGB Conc 30.6 g/dL (31.8-35.4); Mean Corpuscular Hemoglobin 32.4 pg (27.0-31.2); Mean Platelet Volume 9.6 fl (7.4-10.4); Monocytes # 0.2 K/mm3 (0.1-1.0); Monocytes % 1.6 % (1.7-9.3); Neutrophils # 13.1 K/mm3 (1.8-7.8); Neutrophils % 94.3 % (37.0-80.0); Red Blood Count 4.16 M/mm3 (4.60-6.20); Red Cell Distribution Width 14.6 % (11.5-17.5); White Blood Count 13.9 K/mm3 (4.8-10.8)
[2023-07-07 06:56] LABS: Hemoglobin 13.5 g/dL (14.1-18.0)
[2023-07-07 06:57] LABS: MANUAL DIFFERENTIAL MANUAL DIFFERENTIAL (MANUAL DIFF)
--- NOTE | 2023-07-07 08:06 | HMH.PHAINT1 ---
Pharmacy Intervention Comments: home medication list verified using list from outpatient pharmacy
[2023-07-07 08:41] LABS: Lymphocytes % 2 % (10-50); Monocytes % 4 % (2-9); Neutrophils % 91 % (42-76); Total Cells Counted 100
[2023-07-07 08:42] LABS: Platelet Estimate Normal
[2023-07-07 08:43] LABS: Anisocytosis 1+; Macrocytosis 1+; Poikilocytosis 1+; Target Cells 1+
[2023-07-07 08:45] LABS: Basophilic Stippling 1+
[2023-07-07] MEDS: APIXABAN 5MG TABLET 5 MG PO ×2 (09:06→20:56)
[2023-07-07] MEDS: CITALOPRAM 40MG TABLET 40 MG PO (09:06)
[2023-07-07] MEDS: ASPIRIN EC 81MG TABLET 81 MG PO (09:06)
[2023-07-07] MEDS: FOLIC ACID 1MG TABLET 1 MG PO (09:06)
--- NOTE | 2023-07-07 09:47 | P.CONS_ITS ---
History of Present Illness History of present illness: Mr. Flores is a [age]-year-old female greater than 30 PPD, COPD [facility] recently for respiratory distress and hypercarbic respiratory failure, most recent admission May 2023 during which patient was managed for COPD exacerbation along with levofloxacin for a 10-day course for pneumonia presented to the hospital again today with worsening respiratory distress. Admits worsening respiratory status for 7 to 10 days prior to hospital admission. [facility] Disclaimer: The information contained in this section may have been updated after the patient was seen, as this information can be updated by other users. Medical History (Updated 07/07/23 @ 09:47 by Bryan Ramirez MD) Necrotizing pneumonia Healthcare-associated pneumonia Pulmonary embolism Acute respiratory failure with hypoxia and hypercarbia Cough CAD in [place] artery Hilar lymphadenopathy Nodule of right lung Shortness of Breath Atypical angina Coronary artery calcification seen on CAT scan Pneumonia CAP (community acquired pneumonia) Alcohol use disorder, severe, in early remission Tobacco dependence COPD (chronic obstructive pulmonary disease) Hyperlipidemia Hypertension Obesity (BMI 30-39.9) Surgical History History of colonoscopy Family History Mother Lung cancer Father COPD (chronic obstructive pulmonary disease) Social History Smoking Status: Never smoker second hand exposure: No alcohol intake: current current occupational status: disabled Travel in the last 8 weeks: None household members: significant other caffeine: No Review of Systems Constitutional Constitutional: Reports anorexia, Reports body ache(s) and Reports fatigue Eyes Eyes: Denies eye discharge, Denies dry eyes, Denies irritation and Denies itchy eyes ENT Ears, Nose, Mouth, and Throat: Denies epistaxis, Denies facial pain, Denies lip swelling and Denies throat swelling *Cardiovascular Cardiovascular: Reports dyspnea, Reports dyspnea on exertion and Reports orthopnea *Respiratory Respiratory: Reports chest congestion, Reports cough, Reports dyspnea, Reports dyspnea on exertion, Reports excessive phlegm production and Reports wheezing *Gastrointestinal Gastrointestinal: Denies abdominal pain, Denies belching and Denies cramping *Musculoskeletal Musculoskeletal: Reports back pain, Reports myalgias and Reports other (No small joint swelling or Pain) Psychiatric Psychiatric: Denies homicidal ideation and Denies suicidal ideation Endocrine Endocrine: Reports fatigue and Denies heat intolerance Hematologic/Lymphatic Hematologic/Lymphatic: Denies easy bleeding and Denies lymphadenopathy Allergic/Immunologic Allergic/Immunologic: Denies itchy eyes, Denies lip swelling, Denies throat swelling and Reports wheezing Pulmonology Exam Inpatient Vital signs and Labs for Last 24 Hours: Temp Pulse Resp BP Pulse Ox O2 Del Method O2 Flow Rate 97.1 F L 97 H 20 94/68 L 94 L Nasal Cannula 3 07/07/23 08:00 07/07/23 08:00 07/07/23 08:00 07/07/23 08:00 07/07/23 08:00 07/07/23 08:00 07/07/23 08:00 FiO2 45 07/07/23 06:08 Laboratory Results - last 24 hr 07/06/23 13:09: WBC 21.4 H*, RBC 5.24, Hgb 16.7, Hct 55.9 H, MCV 106.7 H, MCH 31.8 H, MCHC 29.8 L, RDW 14.4, Plt Count 317, MPV 8.9, Neut % (Auto) 91.8 H, L ymph % (Auto) 4.4 L, [place] % (Auto) 2.1, Eos % (Auto) 0.3, Baso % (Auto) 1.5, N eut # (Auto) 19.6 H, Lymph # (Auto) 0.9, [place] # (Auto) 0.4, Eos # (Auto) 0.1, B aso # (Auto) 0.3 H, Total Counted 100, Neutrophils % (Manual) 94 H, Lymphocytes % (Manual) 5 L, Monocytes % (Manual) 1 L, Platelet Estimate Normal, RBC Morphology Not Reportable, Macrocytosis 1+, Stomatocytes 1+ 07/06/23 13:17: VBG pH 7.26 L, VBG pCO2 60.3 H, VBG pO2 34.0, VBG HCO3 26.7, VBG Total CO2 28.5 H, VBG O2 Saturation 50.4, VBG Base Excess -0.3, VBG Lactic Acid 5.3 H 07/06/23 13:18: Chlamy pneumoniae PCR TNP, Adenovirus (PCR) Not detected, B. pertussis DNA (PCR) TNP, Coronavirus OC43 (PCR) Not detected, Coronavirus HKU1 (PCR) Not detected, Coronavirus 229E (PCR) Not detected, SARS-CoV-2 (PCR) Not detected, Coronavirus NL63 (PCR) Not detected, Human Metapneumovir PCR Not detected, Influenza A (H1) PCR Not detected, Influ A (H1N1/09) PCR Not detected, Influenza A (H3) PCR Not detected, Influenza Type A (PCR) Not detected, Influenza Type B (PCR) Not detected, M. pneumoniae (PCR) TNP, Parainfluenza 1 (PCR) Not detected, Parainfluenza 2 (PCR) Not detected, Parainfluenza 3 (PCR) Not detected, Parainfluenza 4 (PCR) Not detected, RSV (PCR) Not detected, Entero/Rhino (PCR) Not detected 07/06/23 13:25: Specimen Source Left radial, O2 % 100%, ABG pH 7.31 L, ABG pCO2 47.8 H, ABG pO2 67.7 L, ABG HCO3 23.3, ABG Total CO2 24.7, ABG O2 Saturation 90, ABG Base Excess -3.1 L, Sukumar Test Acceptable 07/06/23 13:26: Urine Color Yellow, Urine Appearance Clear, Urine pH 6.0, Ur Specific [place] 1.025, Urine Protein 1+, Urine Glucose (UA) Negative, Urine Ketones Negative, Urine Blood Trace-i, Urine Nitrate Negative, Urine Bilirubin Negative, Urine Urobilinogen 1.0, Ur Leukocyte Esterase Negative, Urine RBC None, Urine WBC Occasional, Ur Squamous Epith Cells None, Urine Bacteria None 07/06/23 13:45: Sodium 132 L, Potassium 3.4 L, Chloride 97 L, Carbon Dioxide 24, Anion Gap 14.4, BUN 60 H, Creatinine 1.40 H, Estimated Creat Clear 50, Estimated GFR 51 L, Est GFR ( Amer) 61, Glucose 122 H, Calcium 8.3 L, Total Bilirubin 1.3, AST 83 H, ALT 40, Alkaline Phosphatase 166 H, Total Creatine Kinase 28 L, Troponin I 0.42 H, Total Protein 6.2 L, Albumin 2.7 L, Globulin 3.5 H, Albumin/Globulin Ratio 0.8 L 07/06/23 17:30: Lactate 7.9 H, Troponin I 0.30 H, Procalcitonin 5.98 H 07/06/23 18:30: Group A Strep Rapid Negative 07/06/23 19:40: Lactate 2.9 H, Troponin I 0.38 H 07/06/23 23:20: Troponin I 0.39 H 07/07/23 05:25: WBC 13.9 H D, RBC 4.16 L, Hgb 13.5 L D, Hct 44.1, MCV 106.0 H, M CH 32.4 H, MCHC 30.6 L, RDW 14.6, Plt Count 272, MPV 9.6, Neut % (Auto) 94.3 H, Lymph % (Auto) 3.3 L, [place] % (Auto) 1.6 L, Eos % (Auto) 0.1, Baso % (Auto) 0.8, Neut # (Auto) 13.1 H, Lymph # (Auto) 0.5 L, [place] # (Auto) 0.2, Eos # (Auto) 0.0, Baso # (Auto) 0.1, Total Counted 100, Neutrophils % (Manual) 91 H, Band Neutrophils % 3.0, Lymphocytes % (Manual) 2 L, Monocytes % (Manual) 4, Platelet Estimate Normal, Poikilocytosis 1+, Basophilic Stippling 1+, Anisocytosis 1+, Macrocytosis 1+, Target Cells 1+, Sodium 131 L, Potassium 3.3 L, Chloride 97 L, Carbon Dioxide 28, Anion Gap 9.3, BUN 66 H, Creatinine 1.50 H, Estimated Creat Clear 46, Estimated GFR 47 L, Est GFR ( Amer) 56 L, Glucose 114 H, C alcium 8.2 L, Total Bilirubin 0.6, AST 77 H, ALT 32, Alkaline Phosphatase 140 H, Total Protein 5.5 L, Albumin 2.4 L D, Globulin 3.1, Albumin/Globulin Ratio 0.8 L I & O for Labs for Last 24 Hours: Intake & Output 07/04/23 07/05/23 07/06/23 07/07/23 23:59 23:59 23:59 23:59 Intake Total 2330 / 2330 300 / 300 Output Total 670 / 670 Balance 2330 / 2330 -370 / -370 Weight 149 lb 150 lb 4.8 oz Constitutional: Present severe distress Head: Present normocephalic and atraumatic ENT: Present normal exam, normal oropharynx and mucous membranes moist Neck: Present normal inspection and full ROM Respiratory: Present respiratory distress, rhonchi, wheezes and diminished air movement; Absent able to speak in complete sentences Cardiac: Present Irregularly Regular, S1/S2, Tachycardia and radial pulses present GI: Present soft and distention; Absent tenderness or guarding Skin: Present intact; Absent cyanosis or jaundice Neuro: Present alert, awake and oriented x 3 Extremities: Present normal inspection; Absent clubbing or cyanosis Psychiatric: Present normal affect and cooperative Meds Home Medications and Allergies Home Medications Medication Instructions Recorded Confirmed Type albuterol sulfate 90 mcg/actuation 1 - 2 puffs IH Q4HP PRN Shortness 03/24/20 07/07/23 History aerosol inhaler Of Breath Or Wheezing amlodipine 10 mg tablet 10 mg PO DAILY 03/24/20 07/06/23 History escitalopram oxalate 20 mg tablet 20 mg PO DAILY 03/24/20 07/07/23 History aspirin 81 mg tablet,delayed 81 mg PO DAILY Heart Health 05/22/23 07/06/23 History release atorvastatin 40 mg tablet 40 mg PO HS Cholesterol 05/22/23 07/06/23 History bisoprolol fumarate 5 mg tablet 5 mg PO DAILY 05/22/23 07/06/23 History fluticasone fur. 100 mcg-umeclid 1 inh inhalation DAILY 05/22/23 07/07/23 History 62.5 mcg-vilant 25 mcg inhalat.powder (Trelegy Ellipta) folic acid 1 mg tablet 1 mg PO DAILY 05/22/23 07/07/23 History apixaban 5 mg tablet (Eliquis) 5 mg PO BID 07/07/23 07/07/23 History doxycycline monohydrate 100 mg 100 mg PO DAILY lung infection 07/07/23 07/07/23 History capsule prevention furosemide 20 mg tablet 20 mg PO MOWEFR 07/07/23 07/07/23 History lisinopril 20 1 tab PO DAILY 07/07/23 07/07/23 History mg-hydrochlorothiazide 12.5 mg tablet pantoprazole 40 mg tablet,delayed 40 mg PO DAILY 07/07/23 07/07/23 History release rosuvastatin 10 mg tablet 10 mg PO PM 07/07/23 07/07/23 History New Prescriptions to Start Prescriptions: Allergies Allergy/AdvReac Type Severity Reaction Status Date / Time erythromycin base Allergy Unknown NA-NAUSEA/V Verified 07/06/23 13:24 [ERYTHROMYCIN BASE] OMITING Results Laboratory Findings 07/07/23 05:25 07/07/23 05:25 ABG ABG pH 7.31 mmol/L (7.35-7.45) L 07/06/23 13:25 ABG pCO2 47.8 mmhg (35.0-45.0) H 07/06/23 13:25 ABG pO2 67.7 mmhg (80-100) L 07/06/23 13:25 ABG O2 Saturation 90 % (90-100) 07/06/23 13:25 Abnormal lab findings: Abnormal Labs 07/06/23 07/06/23 07/06/23 13:09 13:17 13:25 WBC 21.4 H* RBC Hgb Hct 55.9 H MCV 106.7 H MCH 31.8 H MCHC 29.8 L Neut % (Auto) 91.8 H Lymph % (Auto) 4.4 L [place] % (Auto) Neut # (Auto) 19.6 H Lymph # (Auto) Baso # (Auto) 0.3 H Neutrophils % (Manual) 94 H Lymphocytes % (Manual) 5 L Monocytes % (Manual) 1 L ABG pH 7.31 L ABG pCO2 47.8 H ABG pO2 67.7 L ABG Base Excess -3.1 L VBG pH 7.26 L VBG pCO2 60.3 H VBG Total CO2 28.5 H VBG Lactic Acid 5.3 H Sodium Potassium Chloride BUN Creatinine Estimated GFR Est GFR ( Amer) Glucose Lactate Calcium AST Alkaline Phosphatase Total Creatine Kinase Troponin I Total Protein Albumin Globulin Albumin/Globulin Ratio Procalcitonin 07/06/23 07/06/23 07/06/23 13:45 17:30 19:40 WBC RBC Hgb Hct MCV MCH MCHC Neut % (Auto) Lymph % (Auto) [place] % (Auto) Neut # (Auto) Lymph # (Auto) Baso # (Auto) Neutrophils % (Manual) Lymphocytes % (Manual) Monocytes % (Manual) ABG pH ABG pCO2 ABG pO2 ABG Base Excess VBG pH VBG pCO2 VBG Total CO2 VBG Lactic Acid Sodium 132 L Potassium 3.4 L Chloride 97 L BUN 60 H Creatinine 1.40 H Estimated GFR 51 L Est GFR ( Amer) Glucose 122 H Lactate 7.9 H 2.9 H Calcium 8.3 L AST 83 H Alkaline Phosphatase 166 H Total Creatine Kinase 28 L Troponin I 0.42 H 0.30 H 0.38 H Total Protein 6.2 L Albumin 2.7 L Globulin 3.5 H Albumin/Globulin Ratio 0.8 L Procalcitonin 5.98 H 07/06/23 07/07/23 23:20 05:25 WBC 13.9 H D RBC 4.16 L Hgb 13.5 L D Hct MCV 106.0 H MCH 32.4 H MCHC 30.6 L Neut % (Auto) 94.3 H Lymph % (Auto) 3.3 L [place] % (Auto) 1.6 L Neut # (Auto) 13.1 H Lymph # (Auto) 0.5 L Baso # (Auto) Neutrophils % (Manual) 91 H Lymphocytes % (Manual) 2 L Monocytes % (Manual) ABG pH ABG pCO2 ABG pO2 ABG Base Excess VBG pH VBG pCO2 VBG Total CO2 VBG Lactic Acid Sodium 131 L Potassium 3.3 L Chloride 97 L BUN 66 H Creatinine 1.50 H Estimated GFR 47 L Est GFR ( Amer) 56 L Glucose 114 H Lactate Calcium 8.2 L AST 77 H Alkaline Phosphatase 140 H Total Creatine Kinase Troponin I 0.39 H Total Protein 5.5 L Albumin 2.4 L D Globulin Albumin/Globulin Ratio 0.8 L Procalcitonin Assessment and Plan *Assessment and plan (1) Acute on chronic hypoxic respiratory failure: Status: Acute Category: Medical Code(s): J96.21 - Acute and chronic respiratory failure with hypoxia (2) Healthcare-associated pneumonia: Status: Acute Category: Medical Code(s): J18.9 - Pneumonia, unspecified organism (3) Necrotizing pneumonia: Status: Acute Category: Medical Code(s): J85.0 - Gangrene and necrosis of lung Plan Mr. Flores is a [age]-year-old female greater than 30 PPD, COPD [facility] recently for respiratory distress and hypercarbic respiratory failure, most recent admission May 2023 during which patient was managed for COPD exacerbation along with levofloxacin for a 10-day course for pneumonia presented to the hospital again today with worsening respiratory distress. Admits worsening respiratory status for 7 to 10 days prior to hospital admission. CT upon admission showed significant right lower lobe necrotizing pneumonia which was not present on his CT from May 2023. Neutrophilic leukocytosis. Admission patient also noted to have hypercarbic respiratory failure venous blood gas that improved on arterial blood gas yesterday. Complaints of respiratory viral PCR panel negative. Examination severe respiratory distress. Needed needing 3 L nasal cannula for supplementation saturating 90-95. Rhonchorous breath sounds on auscultation. No significant wheezing noted. Hemodynamically stable. Holding his home blood pressure medications. Will closely monitor. Plan: Continue O2 supplementation to maintain O2 saturation goal of 90 to 95% Follow with sputum culture with induction. Change antibiotics to vancomycin and cefepime pending culture results and nasal MRSA PCR Chest percussion therapy twice daily DuoNebs every 6 hours scheduled along with Pulmicort every 12 scheduled Discontinue steroids # Thank you for involving pulmonary in this patient care. Will continue to follow.
[2023-07-07] MEDS: BUDESONIDE 0.5MG/2ML NEB 0.5 MG IH ×3 (10:29→18:16)
--- NOTE | 2023-07-07 10:29 | PC.NURSE ---
sputum sample collected and sent to lab.
--- NOTE | 2023-07-07 10:36 | PC.NURSE ---
Nurse collected sputum sample and sent to lab.
[2023-07-07] MEDS: CEFEPIME HCL 2 GM in 0.9 % SODIUM CHLORIDE 100 ML IV ×2 (10:53→20:56)
[2023-07-07 13:51] LABS: VBG Base Excess 2.1 mmol/L (-2.4-2.3); VBG HCO3 27.5 mmol/L (23-30); VBG Oxygen Saturation 64.2 % (50-70); VBG PCO2 49.5 mmol/L (35-51); VBG PH 7.36 mmol/L (7.31-7.41); VBG PO2 38.1 mmol/L (28-40)
--- NOTE | 2023-07-07 16:58 | P.PN_ITS ---
Subjective *Date: 07/07/23 *Time: 16:58 Interval history: he is feeling better than yesterday, denied CP, SOB, N/V, he has no complains Exam Data for Last 24 hours Vital signs and Labs for Last 24 Hours: Temp Pulse Resp BP Pulse Ox O2 Del Method O2 Flow Rate 97.8 F 90 20 111/72 94 L Nasal Cannula 2 07/07/23 12:00 07/07/23 16:00 07/07/23 12:00 07/07/23 12:00 07/07/23 14:12 07/07/23 14:12 07/07/23 14:12 FiO2 45 07/07/23 06:08 Laboratory Results - last 24 hr 07/06/23 17:30: Lactate 7.9 H, Troponin I 0.30 H, Procalcitonin 5.98 H 07/06/23 18:30: Group A Strep Rapid Negative 07/06/23 19:40: Lactate 2.9 H, Troponin I 0.38 H 07/06/23 23:20: Troponin I 0.39 H 07/07/23 05:25: WBC 13.9 H D, RBC 4.16 L, Hgb 13.5 L D, Hct 44.1, MCV 106.0 H, MCH 32.4 H, MCHC 30.6 L, RDW 14.6, Plt Count 272, MPV 9.6, Neut % (Auto) 94.3 H, Lymph % (Auto) 3.3 L, [place] % (Auto) 1.6 L, Eos % (Auto) 0.1, Baso % (Auto) 0.8, Neut # (Auto) 13.1 H, Lymph # (Auto) 0.5 L, [place] # (Auto) 0.2, Eos # (Auto) 0.0, Baso # (Auto) 0.1, Total Counted 100, Neutrophils % (Manual) 91 H, Band Neutrophils % 3.0, Lymphocytes % (Manual) 2 L, Monocytes % (Manual) 4, Platelet Estimate Normal, Poikilocytosis 1+, Basophilic Stippling 1+, Anisocytosis 1+, Macrocytosis 1+, Target Cells 1+, Sodium 131 L, Potassium 3.3 L, Chloride 97 L, Carbon Dioxide 28, Anion Gap 9.3, BUN 66 H, Creatinine 1.50 H, Estimated Creat Clear 46, Estimated GFR 47 L, Est GFR ( Amer) 56 L, Glucose 114 H, Calcium 8.2 L, Total Bilirubin 0.6, AST 77 H, ALT 32, Alkaline Phosphatase 140 H , Total Protein 5.5 L, Albumin 2.4 L D, Globulin 3.1, Albumin/Globulin Ratio 0.8 L 07/07/23 13:40: VBG pH 7.36, VBG pCO2 49.5, VBG pO2 38.1, VBG HCO3 27.5, VBG Total CO2 29.0 H, VBG O2 Saturation 64.2, VBG Base Excess 2.1, VBG Lactic Acid 3.0 H I & O for Last 24 hours: Intake & Output 07/04/23 07/05/23 07/06/23 07/07/23 23:59 23:59 23:59 23:59 Intake Total 2330 / 2330 660 / 660 Output Total 820 / 820 Balance 2330 / 2330 -160 / -160 Weight 67.585 kg 68 kg Constitutional Constitutional: no acute distress *Routine HEENT Exam Head: Present normocephalic Eye: Present EOMI and PERRL ENT: Present mucous membranes moist *Routine Neck Exam Neck: Present supple; Absent lymphadenopathy *Routine Respiratory Exam Respiratory: Present diminished air movement *Routine Cardiovascular Exam Cardiovascular: Present RRR *Routine Abdominal Exam Abdominal: Present soft and normoactive bowel sounds; Absent tenderness *Routine Extremities Exam Extremities: Absent cyanosis, clubbing or edema *Routine Skin Exam Skin: Present warm; Absent rash *Routine Neurological Exam Neurological: Present alert and oriented X3 Assessment and Plan *Assessment and plan (1) Acute hypoxemic respiratory failure: Status: Acute Category: Medical Code(s): J96.01 - Acute respiratory failure with hypoxia (2) CAD (coronary artery disease): Status: Acute Category: Medical Code(s): I25.10 - Atherosclerotic heart disease of [place] coronary artery without angina pectoris (3) Severe sepsis: Status: Acute Category: Medical Code(s): A41.9 - Sepsis, unspecified organism; R65.20 - Severe sepsis without septic shock (4) Sepsis due to pneumonia: Status: Acute Category: Medical Code(s): J18.9 - Pneumonia, unspecified organism; A41.9 - Sepsis, unspecified organism Plan Patient patient is a 67-year-old male with past medical history of CAD, pulmonary embolism on Eliquis, COPD on 4 to 6 L nasal cannula at home, hypertension hyperlipidemia who presents to the hospital due to shortness of breath, patient mentions his shortness of breath is getting worse and it has not been improving with home and other therapies so he decided to come to the hospital. He also has been having cough productive of yellowish phlegm patient otherwise denied chest pain nausea vomiting diarrhea constipation dysuria. On further evaluation in the emergency department patient was found to have a troponin, elevated WBC count as well as hypoxia requiring BiPAP. Assessment and plan Acute hypoxic respiratory failure satting less than 90% on room air Pneumonia Suspect COPD exacerbation weaned off of BiPAP started on cefepime and vancomycin, continue IV Abx Check PCT -pending, urine Legionella antigen, urine strep swab - pending Consult pulmonary service DC steroids CTA chest performed in the ED, does show right lung With near complete consolidation of right lower lung, negative for PE Elevated troponin likely demand ischemia - chest pain free Monitor troponin Monitor on cardiac telemetry Continue aspirin, statin Acute kidney injury - monitor Monitor creatinine Avoid nephrotoxic medications Monitor and replace electrolytes, monitor BMP Chronic heart failure with preserved ejection fraction Pulmonary hypertension History of PE Continue home Eliquis Echo 04/26 did show normal EF, preserved ejection fraction, grade 1 diastolic dysfunction, continue home Lasix DVT prophylaxis-on Eliquis monitor inpatient, continue IV abx
[2023-07-07] MEDS: ACETAMINOPHEN 325MG TAB 650 MG PO (17:03)
--- NOTE | 2023-07-07 17:30 | PC.NURSE ---
Pt is A&Ox3. Has been on 3L O2 NC since this AM. Tolerated well. F/C was discontinued this afternoon. Pt has voided using urinal. No BM. Medications administered per mar. Call light within reach. Safety measures in place.
[2023-07-07 17:53] LABS: Reflex Lactic Add Lactic Reflex
[2023-07-07] MEDS: ATORVASTATIN 40MG TABLET 40 MG PO (20:56)
[2023-07-07] MEDS: PANTOPRAZOLE 40MG TABLET 40 MG PO (20:56)
[2023-07-08] VITALS (13 sets, daily range): BP systolic 118–145; BP diastolic 62–74; PULSE 57–103; RESP 19–30; TEMP 36.3–37.1; O2SAT 90–100; BMI 22.7
[2023-07-08] MEDS: IPRATROPIUM/ALBUTEROL 3 ML NEB IH ×6 (01:25→21:22)
--- NOTE | 2023-07-08 06:22 | PC.NURSE ---
PATIENT HAS BEEN COMPLIANT WITH BIPAP. HAS PRODUCTIVE COUGH. SPUTUM RUST COLOR. PACs/PJCs NOTED ON TELE. UNDERLYING RHYTHM NSR. REPORTS SOA WITH EXERTION. WHEEZING AND RHONCHI NOTED BILAT.
[2023-07-08] MEDS: BUDESONIDE 0.5MG/2ML NEB 0.5 MG IH ×2 (06:27→18:48)
[2023-07-08 07:01] LABS: Basophils % 0.4 % (0.1-2.0); Eosinophils % 0.2 % (0.1-12.0); Hematocrit 41.3 % (42.0-52.0); Hemoglobin 12.7 g/dL (14.1-18.0); Lymphocytes # 0.5 K/mm3 (0.7-4.5); Lymphocytes % 5.6 % (10-50); Mean Corpuscular HGB Conc 30.7 g/dL (31.8-35.4); Mean Corpuscular Hemoglobin 32.2 pg (27.0-31.2); Mean Corpuscular Volume 105.1 fl (80-94); Mean Platelet Volume 8.4 fl (7.4-10.4); Monocytes # 0.3 K/mm3 (0.1-1.0); Monocytes % 3.1 % (1.7-9.3); Neutrophils % 90.7 % (37.0-80.0); Platelet Count 272 K/mm3 (142-424); Red Blood Count 3.93 M/mm3 (4.60-6.20); Red Cell Distribution Width 14.6 % (11.5-17.5); White Blood Count 8.8 K/mm3 (4.8-10.8)
[2023-07-08 07:05] LABS: Chloride 104 mmol/L (98-107); Sodium 135 mmol/L (136-145)
[2023-07-08 07:08] LABS: Alanine Aminotransferase 100 U/L (12-78); Albumin Level 2.1 g/dl (3.5-5.0); Albumin/Globulin Ratio 0.8 (1.1-1.8); Alkaline Phosphatase 209 U/L (38-126); Aspartate Amino Transferase 244 U/L (17-59); Bilirubin,Total 0.4 mg/dl (0.2-1.3); Blood Urea Nitrogen 60 mg/dl (9-20); Calcium 8.1 mg/dl (8.4-10.2); Carbon Dioxide 30 mmol/L (22.0-30.0); Creatinine Clearance Estimated 56 mL/min (50-200); Estimated Glomerular Filt Rate 55 ml/min (>60); GFR (African American) 67 ML/MIN (>60); Globulin 2.6 g/dL (1.3-3.2); Glucose 119 mg/dl (74-100); Total Protein,Serum 4.7 g/dl (6.3-8.2)
[2023-07-08 07:26] LABS: MANUAL DIFFERENTIAL MANUAL DIFFERENTIAL (MANUAL DIFF)
[2023-07-08] MEDS: FOLIC ACID 1MG TABLET 1 MG PO (08:09)
[2023-07-08] MEDS: APIXABAN 5MG TABLET 5 MG PO ×2 (08:09→21:16)
[2023-07-08] MEDS: ASPIRIN EC 81MG TABLET 81 MG PO (08:09)
[2023-07-08] MEDS: AMLODIPINE 10MG TABLET 10 MG PO (08:10)
[2023-07-08] MEDS: CITALOPRAM 40MG TABLET 40 MG PO (08:10)
[2023-07-08] MEDS: CEFEPIME HCL 2 GM in 0.9 % SODIUM CHLORIDE 100 ML IV ×2 (08:10→21:17)
[2023-07-08 08:42] LABS: Lymphocytes % 6 % (10-50); Macrocytosis 1+; Neutrophils % 94 % (42-76); Platelet Estimate Normal; Total Cells Counted 100
--- NOTE | 2023-07-08 15:24 | P.PN_ITS ---
Subjective *Date: 07/08/23 *Time: 15:24 Interval history: he is feeling better than yesterday, but he thinks he is not back to baseline yet, denied CP, SOB, N/V Exam Data for Last 24 hours Vital signs and Labs for Last 24 Hours: Temp Pulse Resp BP Pulse Ox O2 Del Method O2 Flow Rate 97.9 F 82 22 145/74 H 91 L Nasal Cannula 2 07/08/23 08:00 07/08/23 14:41 07/08/23 12:00 07/08/23 12:00 07/08/23 14:41 07/08/23 14:41 07/08/23 14:41 FiO2 45 07/08/23 06:28 Laboratory Results - last 24 hr 07/07/23 18:18: Lactate 2.0 07/08/23 06:39: WBC 8.8 D, RBC 3.93 L, Hgb 12.7 L, Hct 41.3 L, MCV 105.1 H, MCH 32.2 H, MCHC 30.7 L, RDW 14.6, Plt Count 272, MPV 8.4, Neut % (Auto) 90.7 H, Lymph % (Auto) 5.6 L, [place] % (Auto) 3.1, Eos % (Auto) 0.2, Baso % (Auto) 0.4, Neut # (Auto) 8.0 H, Lymph # (Auto) 0.5 L, [place] # (Auto) 0.3, Eos # (Auto) 0.0, Baso # (Auto) 0.0, Total Counted 100, Neutrophils % (Manual) 94 H, Lymphocytes % (Manual) 6 L, Platelet Estimate Normal, Macrocytosis 1+, Sodium 135 L, Potassium 4.0 D, Chloride 104, Carbon Dioxide 30, Anion Gap 5.0, BUN 60 H, Creatinine 1.30 H, Estimated Creat Clear 56, Estimated GFR 55 L, Est GFR ( Amer) 67, Glucose 119 H, Calcium 8.1 L, Total Bilirubin 0.4, AST 244 H D, ALT 100 H D, Alkaline Phosphatase 209 H, Total Protein 4.7 L, Albumin 2.1 L D, Globulin 2.6, Albumin/Globulin Ratio 0.8 L I & O for Last 24 hours: Intake & Output 07/05/23 07/06/23 07/07/2307/07/24 23:59 23:59 23:59 23:59 Intake Total 2330 / 2330 880 / 1180 1140 / 1140 Output Total 1620 / 1620 450 / 450 Balance 2330 / 2330 -740 / -440 690 / 690 Weight 67.585 kg 68 kg 72.03 kg Microbiology Reports for the Last 24 Hours: Microbiology 07/06/23 13:25 Urine,Catheterized Urine Culture - Final Constitutional Constitutional: no acute distress *Routine HEENT Exam Head: Present normocephalic Eye: Present EOMI and PERRL ENT: Present mucous membranes moist *Routine Neck Exam Neck: Present supple; Absent lymphadenopathy *Routine Respiratory Exam Respiratory: Present diminished air movement *Routine Cardiovascular Exam Cardiovascular: Present RRR *Routine Abdominal Exam Abdominal: Present soft and normoactive bowel sounds; Absent tenderness *Routine Extremities Exam Extremities: Absent cyanosis, clubbing or edema *Routine Skin Exam Skin: Present warm; Absent rash *Routine Neurological Exam Neurological: Present alert and oriented X3 Assessment and Plan *Assessment and plan (1) Acute hypoxemic respiratory failure: Status: Acute Category: Medical Code(s): J96.01 - Acute respiratory failure with hypoxia (2) CAD (coronary artery disease): Status: Acute Category: Medical Code(s): I25.10 - Atherosclerotic heart disease of [place] coronary artery without angina pectoris (3) Severe sepsis: Status: Acute Category: Medical Code(s): A41.9 - Sepsis, unspecified organism; R65.20 - Severe sepsis without septic shock (4) Sepsis due to pneumonia: Status: Acute Category: Medical Code(s): J18.9 - Pneumonia, unspecified organism; A41.9 - Sepsis, unspecified organism Plan Patient patient is a 67-year-old male with past medical history of CAD, pulmonary embolism on Eliquis, COPD on 4 to 6 L nasal cannula at home, hypertension hyperlipidemia who presents to the hospital due to shortness of geron[place] ath, patient mentions his shortness of breath is getting worse and it has not been improving with home and other therapies so he decided to come to the hospital. He also has been having cough productive of yellowish phlegm patient otherwise denied chest pain nausea vomiting diarrhea constipation dysuria. On further evaluation in the emergency department patient was found to have a troponin, elevated WBC count as well as hypoxia requiring BiPAP. Assessment and plan Acute hypoxic respiratory failure satting less than 90% on room air Pneumonia Suspect COPD exacerbation weaned off of BiPAP started on cefepime and vancomycin, continue IV Abx Check PCT -pending, urine Legionella antigen, urine strep swab - pending Consult pulmonary service DC steroids CTA chest performed in the ED, does show right lung With near complete consolidation of right lower lung, negative for PE Elevated troponin likely demand ischemia - chest pain free Monitor troponin Monitor on cardiac telemetry Continue aspirin, statin Acute kidney injury - monitor Monitor creatinine Avoid nephrotoxic medications Monitor and replace electrolytes, monitor BMP Chronic heart failure with preserved ejection fraction Pulmonary hypertension History of PE Continue home Eliquis Echo 04/26 did show normal EF, preserved ejection fraction, grade 1 diastolic dysfunction, continue home Lasix DVT prophylaxis-on Eliquis monitor inpatient, continue IV abx, continue breathing treatments
--- NOTE | 2023-07-08 19:30 | HMH.PTEV ---
Physical Therapy Evaluation Rehab PT IP Evaluation Start: 07/08/23 10:08 Freq: ONCE Status: Active Protocol: Document 07/08/23 19:23 ALEXEI (Rec: 07/08/23 19:30 ALEXEI [id number]) Subjective/History History History Patient patient is a 67-year- old male with past medical history of CAD, pulmonary embolism on Eliquis, COPD on 4 to 6 L nasal cannula at home, hypertension hyperlipidemia who presents to the hospital due to shortness of breath, patient mentions his shortness of breath is getting worse and it has not been improving with home and other therapies so he decided to come to the hospital. He also has been having cough productive of yellowish phlegm patient otherwise denied chest pain nausea vomiting diarrhea constipation dysuria. On further evaluation in the emergency department patient was found to have a troponin, elevated WBC count as well as hypoxia requiring BiPAP. Patient previously living at home. No other family members in close contact to monitor. Independent with all standing /ambulation. Subjective Subjective I've just been feeling weak and short of breath. Rehab PT IP Eval Objective Appearance Patient Behavior Appropriate,Cooperative Difficulty following instructions none Speech Pattern Clear,Appropriate Ambulation Patient Able to Ambulate Yes Ambulation Observation IP General Gait Pattern Observation No Deviations/Normal Ambulation Distance (feet) 10 Ambulation Assistive Device None Ambulation Ability Minimal x 1 (25% assist) Balance Ability to Arise Able, uses arms to help Sitting Balance Steady, safe Standing Balance Steady, wide stance Dynamic Sitting Balance Ability Normal Dynamic Standing Balance Ability Fair Transfers Bed Transfer Ability Contact Guard/Hand Hold Sit to Stand Bed Transfer Ability Minimal x 1 (25% assist) ROM All Extremities PT ROM Status WFL MMT All Extremities PT MMT WFL Rehab PT IP prob,goals,plan Problems Date of Evaluation: 07/08/23 PT IP Problems Bed Mobility,Transfers,Gait, Balance,Self care,Safety Rehab Potential Rehab Potential Good Equipment Needs Assistive Devices Rolling / Wheeled Walker Plan PT Intervention Plan Bed Mobility,Transfers,Gait, Balance,Self care,Safety, Therapeutic Exercise PT Plan Frequency Daily Duration LOS Discharge Goals Bed Transfer Ability Supervision/Stand by Sit to Stand Chair Transfer Ability Supervision/Stand by Ambulation Assistive Device Rolling Walker Ambulation Distance (feet) 20 Discharge Plan PT Discharge Plan PT suggests patient would benefit from transfer to SNF for continued monitoring and rehab once found medically stable by MD. Reddy Complexity Eval Charge Codes 45097 - High Complexity PHYSICIAN CERTIFICATION: I certify the specified therapy services for Glynn Flores are required, authorized, and reviewed every 30 days.
[2023-07-08] MEDS: ATORVASTATIN 40MG TABLET 40 MG PO (21:16)
[2023-07-08] MEDS: PANTOPRAZOLE 40MG TABLET 40 MG PO (21:16)
[2023-07-09] VITALS (16 sets, daily range): BP systolic 117–150; BP diastolic 71–78; PULSE 71–145; RESP 16–34; TEMP 36.4–36.9; O2SAT 88–95; BMI 22.9
[2023-07-09] MEDS: IPRATROPIUM/ALBUTEROL 3 ML NEB IH ×6 (01:48→22:10)
--- NOTE | 2023-07-09 03:11 | PC.NURSE ---
Pt is alert and oriented x4, and currently tolerating 4L of O2. Pt has no complaints.
--- NOTE | 2023-07-09 03:37 | PC.NURSE ---
RESP CARE NOTE PT REFUSED BIPAP THIS SHIFT AFTER ASKING MULTIPLE TIMES THROUGH OUT THE NIGHT
[2023-07-09] MEDS: BUDESONIDE 0.5MG/2ML NEB 0.5 MG IH ×2 (06:55→18:07)
[2023-07-09 07:30] LABS: Chloride 108 mmol/L (98-107)
[2023-07-09 07:31] LABS: Potassium 4.3 mmoL/L (3.5-5.1); Sodium 139 mmol/L (136-145)
[2023-07-09 07:33] LABS: Alanine Aminotransferase 105 U/L (12-78); Alkaline Phosphatase 203 U/L (38-126); Anion Gap 3.3 mEq/L (5-15); Aspartate Amino Transferase 180 U/L (17-59); Bilirubin,Total 0.3 mg/dl (0.2-1.3); Blood Urea Nitrogen 43 mg/dl (9-20); Carbon Dioxide 32 mmol/L (22.0-30.0); Creatinine Clearance Estimated 74 mL/min (50-200); Estimated Glomerular Filt Rate 75 ml/min (>60); GFR (African American) 90 ML/MIN (>60)
[2023-07-09 07:34] LABS: Albumin Level 2.3 g/dl (3.5-5.0); Albumin/Globulin Ratio 0.8 (1.1-1.8); Calcium 8.1 mg/dl (8.4-10.2); Globulin 2.9 g/dL (1.3-3.2); Glucose 92 mg/dl (74-100); Total Protein,Serum 5.2 g/dl (6.3-8.2)
[2023-07-09 07:40] LABS: Basophils % 0.1 % (0.1-2.0); Eosinophils % 0.1 % (0.1-12.0); Hematocrit 43.3 % (42.0-52.0); Hemoglobin 12.7 g/dL (14.1-18.0); Lymphocytes # 0.8 K/mm3 (0.7-4.5); Lymphocytes % 9.7 % (10-50); Mean Corpuscular HGB Conc 29.5 g/dL (31.8-35.4); Mean Corpuscular Hemoglobin 31.7 pg (27.0-31.2); Mean Corpuscular Volume 107.5 fl (80-94); Mean Platelet Volume 8.8 fl (7.4-10.4); Monocytes # 0.3 K/mm3 (0.1-1.0); Monocytes % 3.4 % (1.7-9.3); Neutrophils # 7.2 K/mm3 (1.8-7.8); Neutrophils % 86.8 % (37.0-80.0); Platelet Count 270 K/mm3 (142-424); Red Blood Count 4.02 M/mm3 (4.60-6.20); Red Cell Distribution Width 14.8 % (11.5-17.5); White Blood Count 8.3 K/mm3 (4.8-10.8)
[2023-07-09 07:42] LABS: MANUAL DIFFERENTIAL MANUAL DIFFERENTIAL (MANUAL DIFF)
[2023-07-09] MEDS: CITALOPRAM 40MG TABLET 40 MG PO (08:25)
[2023-07-09] MEDS: ASPIRIN EC 81MG TABLET 81 MG PO (08:25)
[2023-07-09] MEDS: FOLIC ACID 1MG TABLET 1 MG PO (08:25)
[2023-07-09] MEDS: CEFEPIME HCL 2 GM in 0.9 % SODIUM CHLORIDE 100 ML IV ×2 (08:25→20:30)
[2023-07-09] MEDS: APIXABAN 5MG TABLET 5 MG PO ×2 (08:25→20:30)
[2023-07-09] MEDS: AMLODIPINE 10MG TABLET 10 MG PO (08:25)
[2023-07-09 08:54] LABS: Lymphocytes % 12 % (10-50); Macrocytosis 2+; Neutrophils % 88 % (42-76); Platelet Estimate Normal; Total Cells Counted 100
--- NOTE | 2023-07-09 14:55 | P.PN_ITS ---
Subjective *Date: 07/09/23 *Time: 14:55 Interval history: seen at bedside, he is feeling better, he is on 2L NC, his baseline is 4L at home, denied CP, SOB, N/V Exam Data for Last 24 hours Vital signs and Labs for Last 24 Hours: Temp Pulse Resp BP Pulse Ox O2 Del Method O2 Flow Rate 97.5 F L 100 H 34 H 150/71 H 90 L Nasal Cannula 3 07/09/23 12:00 07/09/23 14:04 07/09/23 12:00 07/09/23 12:00 07/09/23 14:04 07/09/23 14:04 07/09/23 14:04 FiO2 45 07/08/23 06:28 Laboratory Results - last 24 hr 07/09/23 07:17: WBC 8.3, RBC 4.02 L, Hgb 12.7 L, Hct 43.3, MCV 107.5 H, MCH 31.7 H, MCHC 29.5 L, RDW 14.8, Plt Count 270, MPV 8.8, Neut % (Auto) 86.8 H, Lymph % (Auto) 9.7 L, [place] % (Auto) 3.4, Eos % (Auto) 0.1, Baso % (Auto) 0.1, Neut # (Auto) 7.2, Lymph # (Auto) 0.8, [place] # (Auto) 0.3, Eos # (Auto) 0.0, Baso # (Auto) 0.0, Total Counted 100, Neutrophils % (Manual) 88 H, Lymphocytes % (Manual) 12, Platelet Estimate Normal, Macrocytosis 2+, Sodium 139, Potassium 4.3, Chloride 108 H, Carbon Dioxide 32 H, Anion Gap 3.3 L, BUN 43 H D, Creatinine 1.00 D, Estimated Creat Clear 74, Estimated GFR 75, Est GFR ( Amer) 90 D, Glucose 92, Calcium 8.1 L, Total Bilirubin 0.3, AST 180 H D, ALT 105 H, Alkaline Phosphatase 203 H, Total Protein 5.2 L, Albumin 2.3 L, Globulin 2.9, Albumin/Globulin Ratio 0.8 L I & O for Last 24 hours: Intake & Output 07/06/23 07/07/23 07/08/23 07/09/23 23:59 23:59 23:59 23:59 Intake Total 2330 / 2330 880 / 1180 2019 360 / 360 Output Total 1620 / 1620 700 / 1050 1300 / 1300 Balance 2330 / 2330 -740 / -440 1320 / 970 -940 / -940 Weight 67.585 kg 68 kg 72.03 kg 72.717 kg Microbiology Reports for the Last 24 Hours: Microbiology 07/06/23 13:20 Blood Blood Culture - Preliminary 07/07/23 10:27 Sputum - Expectorated Sputum Gram Stain - Final 07/06/23 18:30 Nose MRSA Culture - Final 07/06/23 13:09 Blood Blood Culture - Preliminary Constitutional Constitutional: no acute distress *Routine HEENT Exam Head: Present normocephalic Eye: Present EOMI and PERRL ENT: Present mucous membranes moist *Routine Neck Exam Neck: Present supple; Absent lymphadenopathy *Routine Respiratory Exam Respiratory: Present diminished air movement *Routine Cardiovascular Exam Cardiovascular: Present RRR *Routine Abdominal Exam Abdominal: Present soft and normoactive bowel sounds; Absent tenderness *Routine Extremities Exam Extremities: Absent cyanosis, clubbing or edema *Routine Skin Exam Skin: Present warm; Absent rash *Routine Neurological Exam Neurological: Present alert and oriented X3 Assessment and Plan *Assessment and plan (1) Acute hypoxemic respiratory failure: Status: Acute Category: Medical Code(s): J96.01 - Acute respiratory failure with hypoxia (2) CAD (coronary artery disease): Status: Acute Category: Medical Code(s): I25.10 - Atherosclerotic heart disease of [place] coronary artery without angina pectoris (3) Severe sepsis: Status: Acute Category: Medical Code(s): A41.9 - Sepsis, unspecified organism; R65.20 - Severe sepsis without septic shock (4) Sepsis due to pneumonia: Status: Acute Category: Medical Code(s): J18.9 - Pneumonia, unspecified organism; A41.9 - Sepsis, unspecified organism Plan Patient patient is a 67-year-old male with past medical history of CAD, pulmonary embolism on Eliquis, COPD on 4 to 6 L nasal cannula at home, hypertension hyperlipidemia who presents to the hospital due to shortness of breath, patient mentions his shortness of breath is getting worse and it has not been improving with home and other therapies so he decided to come to the hospital. He also has been having cough productive of yellowish phlegm patient otherwise denied chest pain nausea vomiting diarrhea constipation dysuria. On further evaluation in the emergency department patient was found to have a troponin, elevated WBC count as well as hypoxia requiring BiPAP. Assessment and plan Acute hypoxic respiratory failure satting less than 90% on room air Pneumonia Suspect COPD exacerbation weaned off of BiPAP started on cefepime and vancomycin, continue IV Abx Check PCT -pending, urine Legionella antigen, urine strep swab - pending Consult pulmonary service DC steroids CTA chest performed in the ED, does show right lung With near complete consolidation of right lower lung, negative for PE Elevated troponin likely demand ischemia - chest pain free Monitor troponin Monitor on cardiac telemetry Continue aspirin, statin Acute kidney injury - monitor Monitor creatinine Avoid nephrotoxic medications Monitor and replace electrolytes, monitor BMP Chronic heart failure with preserved ejection fraction Pulmonary hypertension History of PE Continue home Eliquis Echo 04/26 did show normal EF, preserved ejection fraction, grade 1 diastolic dysfunction, continue home Lasix DVT prophylaxis-on Eliquis monitor inpatient, continue IV abx, continue breathing treatments, patient need PT/OT placement per therapy, will cosnult CM for discharge plannning
--- NOTE | 2023-07-09 16:15 | PC.NURSE ---
pt aox4, o2 support increased to 4lnc r/t desat and tachypnea. he has sat up on side of bed for meals but has declined getting up to chair.
[2023-07-09] MEDS: PANTOPRAZOLE 40MG TABLET 40 MG PO (20:30)
[2023-07-09] MEDS: ATORVASTATIN 40MG TABLET 40 MG PO (22:35)
--- NOTE | 2023-07-09 22:50 | PC.NURSE ---
PATIENT REFUSED BIPAP
[2023-07-10] VITALS (14 sets, daily range): BP systolic 98–144; BP diastolic 56–77; PULSE 80–108; RESP 18–34; TEMP 36.5–37; O2SAT 89–95; BMI 22.9
[2023-07-10] MEDS: IPRATROPIUM/ALBUTEROL 3 ML NEB IH ×5 (02:13→23:56)
[2023-07-10] MEDS: MELATONIN 5MG TABLET 5 MG PO ×2 (03:03→20:58)
[2023-07-10] MEDS: BUDESONIDE 0.5MG/2ML NEB 0.5 MG IH ×2 (05:57→18:57)
--- NOTE | 2023-07-10 06:56 | PC.NURSE ---
pt on 4l/nc through the night but was de-sating to 86% after falling asleep. pt placed on bi-pap @ 45%. pt becomes dyspneic with any amt of exertion
--- NOTE | 2023-07-10 07:08 | P.PN_ITS ---
Subjective *Date: 07/10/23 *Time: 07:08 Medical Exam Vital signs and Labs for Last 24 Hours: Vital Signs Temp Pulse Pulse Resp BP Pulse Ox O2 Del Method 07/10/23 07:00 BiPAP 07/10/23 05:59 97 H 07/10/23 05:59 97 H 07/10/23 05:00 Nasal Cannula 07/10/23 04:00 90 07/10/23 04:00 98.2 F 100 H 34 H 144/77 H 89 L Nasal Cannula 07/10/23 03:00 Nasal Cannula 07/10/23 02:26 89 07/10/23 02:26 88 07/10/23 01:00 Nasal Cannula 07/10/23 00:00 98.5 F 108 H 24 127/75 92 L Nasal Cannula 07/10/23 00:00 80 07/09/23 23:00 Nasal Cannula 07/09/23 22:48 92 H 07/09/23 22:48 90 07/09/23 21:00 Nasal Cannula 07/09/23 20:30 Nasal Cannula 07/09/23 20:15 98 H 07/09/23 20:00 98.4 F 105 H 20 117/75 95 Nasal Cannula 07/09/23 18:44 Nasal Cannula 07/09/23 18:43 93 H 07/09/23 18:43 98 H 07/09/23 18:38 Nasal Cannula 07/09/23 18:04 88 L Room Air 07/09/23 16:22 Nasal Cannula 07/09/23 16:00 97.8 F 104 H 19 141/78 H 94 L Nasal Cannula 07/09/23 16:00 85 07/09/23 15:00 Nasal Cannula 07/09/23 14:04 100 H 07/09/23 14:04 100 H 07/09/23 14:04 90 L Nasal Cannula 07/09/23 13:00 Nasal Cannula 07/09/23 12:02 102 H 07/09/23 12:00 97.5 F L 112 H 34 H 150/71 H 92 L Nasal Cannula 07/09/23 11:00 Nasal Cannula 07/09/23 10:14 101 H 07/09/23 10:14 95 H 16 07/09/23 10:14 95 H 07/09/23 10:14 91 L Nasal Cannula 07/09/23 09:00 Nasal Cannula 07/09/23 08:00 Nasal Cannula 07/09/23 08:00 97.9 F 105 H 22 135/75 93 L Nasal Cannula 07/09/23 07:57 145 H O2 Flow Rate 07/10/23 07:00 07/10/23 05:59 07/10/23 05:59 07/10/23 05:00 4 07/10/23 04:00 07/10/23 04:00 4 07/10/23 03:00 4 07/10/23 02:26 07/10/23 02:26 07/10/23 01:00 4 07/10/23 00:00 4 07/10/23 00:00 07/09/23 23:00 4 07/09/23 22:48 07/09/23 22:48 07/09/23 21:00 4 07/09/23 20:30 4 07/09/23 20:15 07/09/23 20:00 4 07/09/23 18:44 4 07/09/23 18:43 07/09/23 18:43 07/09/23 18:38 4 07/09/23 18:04 07/09/23 16:22 4 07/09/23 16:00 4 07/09/23 16:00 07/09/23 15:00 4 07/09/23 14:04 07/09/23 14:04 07/09/23 14:04 3 07/09/23 13:00 4 07/09/23 12:02 07/09/23 12:00 4 07/09/23 11:00 2 07/09/23 10:14 07/09/23 10:14 07/09/23 10:14 07/09/23 10:14 2 07/09/23 09:00 2 07/09/23 08:00 2 07/09/23 08:00 2 07/09/23 07:57 Intake and Output 07/09/23 07/09/23 07/10/23 15:59 23:59 07:59 Intake Total 360 / 1200 360 / 1200 480 / 480 Output Total 400 / 2785 560 / 2785 1535 / 1535 Balance -40 / -1585 -200 / -1585 -1055 / -1055 Intake: Intake, Oral Amount 360 / 1200 360 / 1200 480 / 480 Output: Output, Urine Amount 400 / 2785 560 / 2785 1535 / 1535 Other: Number of Voids 2 0 4 Number of Unmeasured Voids 0 Number of Bowel Movements 1 1 Weight 72.717 kg Patient Weight 07/10/23 23:59 Weight 72.717 kg Laboratory Results - last 24 hr 07/09/23 07:17: WBC 8.3, RBC 4.02 L, Hgb 12.7 L, Hct 43.3, MCV 107.5 H, MCH 31.7 H, MCHC 29.5 L, RDW 14.8, Plt Count 270, MPV 8.8, Neut % (Auto) 86.8 H, Lymph % (Auto) 9.7 L, [place] % (Auto) 3.4, Eos % (Auto) 0.1, Baso % (Auto) 0.1, Neut # (Auto) 7.2, Lymph # (Auto) 0.8, [place] # (Auto) 0.3, Eos # (Auto) 0.0, Baso # (Auto) 0.0, Total Counted 100, Neutrophils % (Manual) 88 H, Lymphocytes % (Manual) 12, Platelet Estimate Normal, Macrocytosis 2+, Sodium 139, Potassium 4.3, Chloride 108 H, Carbon Dioxide 32 H, Anion Gap 3.3 L, BUN 43 H D, Creatinine 1.00 D, Estimated Creat Clear 74, Estimated GFR 75, Est GFR ( Amer) 90 D, Glucose 92, Calcium 8.1 L, Total Bilirubin 0.3, AST 180 H D, ALT 105 H, Alkaline Phosphatase 203 H, Total Protein 5.2 L, Albumin 2.3 L, Globulin 2.9, Albumin/Globulin Ratio 0.8 L I & O for Labs for Last 24 Hours: Intake & Output 07/07/23 07/08/23 07/09/23 07/10/23 23:59 23:59 23:59 23:59 Intake Total 880 / 1180 2019 720 / 1200 480 / 480 Output Total 1620 / 1620 700 / 1050 1860 / 2785 1535 / 1535 Balance -740 / -440 1320 / 970 -1140 / -1585 -1055 / -1055 Weight 68 kg 72.03 kg 72.717 kg 72.717 kg Microbiology Reports for the Last 24 Hours: Microbiology 07/06/23 13:20 Blood Blood Culture - Preliminary 07/07/23 10:27 Sputum - Expectorated Sputum Gram Stain - Final 07/06/23 18:30 Nose MRSA Culture - Final The patient's infection will respond to the chosen ABx?: Yes Is the patient receiving the right drug, dose, and route?: Yes Could a more targeted ABx be ordered?: No (SPUTUM CX PENDING)
[2023-07-10] MEDS: AMLODIPINE 10MG TABLET 10 MG PO (08:55)
[2023-07-10] MEDS: ASPIRIN EC 81MG TABLET 81 MG PO (08:55)
[2023-07-10] MEDS: APIXABAN 5MG TABLET 5 MG PO ×2 (08:55→20:58)
[2023-07-10] MEDS: CEFEPIME HCL 2 GM in 0.9 % SODIUM CHLORIDE 100 ML IV ×2 (08:55→20:58)
[2023-07-10] MEDS: FOLIC ACID 1MG TABLET 1 MG PO (08:55)
[2023-07-10] MEDS: CITALOPRAM 40MG TABLET 40 MG PO (08:55)
[2023-07-10 09:07] LABS: Basophils % 0.2 % (0.1-2.0); Eosinophils % 0.3 % (0.1-12.0); Hemoglobin 12.1 g/dL (14.1-18.0); Lymphocytes # 0.8 K/mm3 (0.7-4.5); Lymphocytes % 7.3 % (10-50); Mean Corpuscular Hemoglobin 32.1 pg (27.0-31.2); Mean Corpuscular Volume 103.4 fl (80-94); Mean Platelet Volume 8.9 fl (7.4-10.4); Monocytes # 0.4 K/mm3 (0.1-1.0); Monocytes % 3.1 % (1.7-9.3); Neutrophils # 10.1 K/mm3 (1.8-7.8); Neutrophils % 89.2 % (37.0-80.0); Platelet Count 266 K/mm3 (142-424); Red Blood Count 3.77 M/mm3 (4.60-6.20); Red Cell Distribution Width 14.8 % (11.5-17.5); White Blood Count 11.3 K/mm3 (4.8-10.8)
[2023-07-10 09:08] LABS: MANUAL DIFFERENTIAL MANUAL DIFFERENTIAL (MANUAL DIFF)
--- NOTE | 2023-07-10 09:15 | XR_ITS ---
FINAL REPORT CLINICAL HISTORY: PNM COMPARISON: 05/22/2023 FINDINGS: A single portable view of the chest was obtained. The heart size and pulmonary vascularity are within normal limits. The mediastinum is within normal limits. The lungs are hyperinflated consistent with COPD. There are new right lung base opacities which are consistent with pneumonia. The bony thorax is intact. IMPRESSION: New right lung opacities consistent with pneumonia. Reviewed, Interpreted and Dictated by Kailash Fitch III, MD Transcribed by Yuli Godoy Authenticated and [facility]
[2023-07-10 09:21] LABS: Lymphocytes % 8 % (10-50); Monocytes % 4 % (2-9); Neutrophils % 87 % (42-76); Total Cells Counted 100
[2023-07-10 09:22] LABS: Hypochromasia 2+; Macrocytosis 3+; Platelet Estimate Normal; Stomatocytes 3+
[2023-07-10 09:26] LABS: Chloride 100 mmol/L (98-107); Potassium 3.6 mmoL/L (3.5-5.1); Sodium 134 mmol/L (136-145)
[2023-07-10 09:29] LABS: Alanine Aminotransferase 79 U/L (12-78); Albumin Level 2.2 g/dl (3.5-5.0); Albumin/Globulin Ratio 0.7 (1.1-1.8); Alkaline Phosphatase 193 U/L (38-126); Anion Gap 2.6 mEq/L (5-15); Aspartate Amino Transferase 80 U/L (17-59); Blood Urea Nitrogen 25 mg/dl (9-20); Carbon Dioxide 35 mmol/L (22.0-30.0); Creatinine Clearance Estimated 74 mL/min (50-200); Estimated Glomerular Filt Rate 112 ml/min (>60); GFR (African American) 136 ML/MIN (>60); Total Protein,Serum 5.2 g/dl (6.3-8.2)
[2023-07-10 09:30] LABS: Calcium 7.6 mg/dl (8.4-10.2); Glucose 143 mg/dl (74-100)
--- NOTE | 2023-07-10 09:32 | SW/DCPLANNER ---
Addendum entered by [facility] 07/12/23 09:20: Per Екатерина morse/ [facility] this patient has been approved SNF level of care. Patient will discharge today. Addendum entered by [facility] 07/11/23 14:26: Екатерина morse/ [facility] stated that she can accept this patient will start precert today. I will update patient and Sheri morse/ Bryan Madsen. Addendum entered by [facility] 07/11/23 14:02: Sheri Madsen will be onsite this afternoon to evaluate this patient. Addendum entered by [facility] 07/11/23 09:23: Patient is also agreeable for information to be faxed to Екатерина morse/ [facility]. Addendum entered by [facility] 07/10/23 13:03: Mis morse/ [facility] is not able to accept this patient. Sheri Madsen is currently reviewing. Original Note: I spoke w/ this patient regarding plans once medically stable for discharge. PT/OT evaluated patient and recommended SNF level of care. Patient is agreeable to placement and prefers [facility] or [facility]. I will fax information to both facilities this AM and continue to follow up w/ priscila and
--- NOTE | 2023-07-10 09:48 | HMH.OTEV ---
OT Inpatient Evaluation Rehab OT IP Evaluation Start: 07/08/23 10:08 Freq: ONCE Status: Active Protocol: Document 07/10/23 09:38 JULIENTALHA (Rec: 07/10/23 09:48 JOHANA [id number]) Rehab OT IP Assessment Subjective History Patient patient is a 67-year- old male with past medical history of CAD, pulmonary embolism on Eliquis, COPD on 4 to 6 L nasal cannula at home, hypertension hyperlipidemia who presents to the hospital due to shortness of breath, patient mentions his shortness of breath is getting worse and it has not been improving with home and other therapies so he decided to come to the hospital. He also has been having cough productive of yellowish phlegm patient otherwise denied chest pain nausea vomiting diarrhea constipation dysuria. On further evaluation in the emergency department patient was found to have a troponin, elevated WBC count as well as hypoxia requiring BiPAP. Patient reported that he lives in a mobile home with nicole. Ambulates indepenendently. Able to complete all ADLs independently. 4L of 02. Nicole works during the day while patient is at home alone . However patient reported that he has a neighbor down the road that assist when needed. Subjective I can sit up. Instructed Patient on proper hand and foot placement to complete bed mobility from supine->sit @ EOB requiring SUP. Instructed Patient on proper hand and foot placement to complete sit->stand with Min A. Patient stood <30 secs prior to needing to sit down due to SOB. <90%. Assisted Patient back in bed supine with Min A. Objective Patient Orientation Person,Name,Age,Birthday,Year Right Upper Extremity Gross ROM WFL Left Upper Extremity Gross ROM WFL Bed Mobility bed mobility - supine/sit Assist Level Contact Guard/Hand Hold Transfer Training Sit/Stand Transfer Assist Level Minimal x 1 (25% assist) Chair Transfer Ability Minimal x 1 (25% assist) Chair Transfer Technique Sit to/from Ambulatory Chair Transfer Assistive Devices None Rehab OT IP prob,goals,plan Problems Date of Evaluation: 07/10/23 OT IP Problems Bed Mobility,Transfers,Balance ,Self care,Safety Rehab Potential Rehab Potential Good Equipment Needs Assistive Devices Rolling / Wheeled Walker Plan OT intervention Plan Bed Mobility,Transfers,Balance ,Self care,Safety,Therapeutic Exercise OT Plan Frequency Daily Duration LOS Discharge Goals Bed Mobility Ability Standby Assistance Sit to Stand Chair Transfer Ability Supervision/Stand by Chair Transfer Ability Contact Guard/Hand Hold Chair Transfer Technique Sit to/from Ambulatory Lower Body Dressing Ability Standby Assistance Discharge Plan OT Discharge Plan Recommend placement at this time because patient requires assistance to complete simple bed mobility tasks. Patient unable to stand >30 secs without having SOB. Patient is home alone during the day and recommend 24/7 care. However if patient is unable to have rehab placement, recommend services. Eval Complexity Eval Charge Codes 98870 - Low Complexity PHYSICIAN CERTIFICATION: I certify the specified therapy services for Glynn Flores are required, authorized, and reviewed every 30 days.
--- NOTE | 2023-07-10 09:51 | EXP.PULM.PN ---
Subjective *Date: 07/10/23 *Time: 10:50 Interval history: No acute respiratory vents over the weekend. Patient admits improving respiratory symptoms. Pulmonology Exam Inpatient Vital signs and Labs for Last 24 Hours: Temp Pulse Resp BP Pulse Ox O2 Del Method O2 Flow Rate 97.7 F 105 H 22 99/59 L 95 BiPAP 4 07/10/23 08:00 07/10/23 08:00 07/10/23 08:00 07/10/23 08:00 07/10/23 08:00 07/10/23 08:00 07/10/23 05:00 FiO2 45 07/10/23 06:20 Laboratory Results - last 24 hr 07/10/23 08:51: WBC 11.3 H D, RBC 3.77 L, Hgb 12.1 L, Hct 39.0 L, MCV 103.4 H, MCH 32.1 H, MCHC 31.0 L, RDW 14.8, Plt Count 266, MPV 8.9, Neut % (Auto) 89.2 H, Lymph % (Auto) 7.3 L, [place] % (Auto) 3.1, Eos % (Auto) 0.3, Baso % (Auto) 0.2, Neut # (Auto) 10.1 H, Lymph # (Auto) 0.8, [place] # (Auto) 0.4, Eos # (Auto) 0.0, Baso # (Auto) 0.0, Total Counted 100, Neutrophils % (Manual) 87 H, Band Neutrophils % 1.0, Lymphocytes % (Manual) 8 L, Monocytes % (Manual) 4, Platelet Estimate Normal, Hypochromasia 2+, Macrocytosis 3+, Stomatocytes 3+, Sodium 134 L, Potassium 3.6, Chloride 100, Carbon Dioxide 35 H, Anion Gap 2.6 L, BUN 25 H D, Creatinine 0.70 D, Estimated Creat Clear 74, Estimated GFR 112, Est GFR ( Amer) 136 D, Glucose 143 H, Calcium 7.6 L, Total Bilirubin 1.0, AST 80 H D, ALT 79 H, Alkaline Phosphatase 193 H, Total Protein 5.2 L, Albumin 2.2 L, Globulin 3.0, Albumin/Globulin Ratio 0.7 L Temp Pulse Resp BP Pulse Ox O2 Del Method O2 Flow Rate 97.1 F L 97 H 20 94/68 L 94 L Nasal Cannula 3 07/07/23 08:00 07/07/23 08:00 07/07/23 08:00 07/07/23 08:00 07/07/23 08:00 07/07/23 08:00 07/07/23 08:00 FiO2 45 07/07/23 06:08 Laboratory Results - last 24 hr 07/06/23 13:09: WBC 21.4 H*, RBC 5.24, Hgb 16.7, Hct 55.9 H, MCV 106.7 H, MCH 31.8 H, MCHC 29.8 L, RDW 14.4, Plt Count 317, MPV 8.9, Neut % (Auto) 91.8 H, Lymph % (Auto) 4.4 L, [place] % (Auto) 2.1, Eos % (Auto) 0.3, Baso % (Auto) 1.5, Neut # (Auto) 19.6 H, Lymph # (Auto) 0.9, [place] # (Auto) 0.4, Eos # (Auto) 0.1, Baso # (Auto) 0.3 H, Total Counted 100, Neutrophils % (Manual) 94 H, Lymphocytes % (Manual) 5 L, Monocytes % (Manual) 1 L, Platelet Estimate Normal, RBC Morphology Not Reportable, Macrocytosis 1+, Stomatocytes 1+ 07/06/23 13:17: VBG pH 7.26 L, VBG pCO2 60.3 H, VBG pO2 34.0, VBG HCO3 26.7, VBG Total CO2 28.5 H, VBG O2 Saturation 50.4, VBG Base Excess -0.3, VBG Lactic Acid 5.3 H 07/06/23 13:18: Chlamy pneumoniae PCR TNP, Adenovirus (PCR) Not detected, B. pertussis DNA (PCR) TNP, Coronavirus OC43 (PCR) Not detected, Coronavirus HKU1 (PCR) Not detected, Coronavirus 229E (PCR) Not detected, SARS-CoV-2 (PCR) Not detected, Coronavirus NL63 (PCR) Not detected, Human Metapneumovir PCR Not detected, Influenza A (H1) PCR Not detected, Influ A (H1N1/09) PCR Not detected, Influenza A (H3) PCR Not detected, Influenza Type A (PCR) Not detected, Influenza Type B (PCR) Not detected, M. pneumoniae (PCR) TNP, Parainfluenza 1 (PCR) Not detected, Parainfluenza 2 (PCR) Not detected, Parainfluenza 3 (PCR) Not detected, Parainfluenza 4 (PCR) Not detected, RSV (PCR) Not detected, Entero/Rhino (PCR) Not detected 07/06/23 13:25: Specimen Source Left radial, O2 % 100%, ABG pH 7.31 L, ABG pCO2 47.8 H, ABG pO2 67.7 L, ABG HCO3 23.3, ABG Total CO2 24.7, ABG O2 Saturation 90, ABG Base Excess -3.1 L, Sukumar Test Acceptable 07/06/23 13:26: Urine Color Yellow, Urine Appearance Clear, Urine pH 6.0, Ur Specific [place] 1.025, Urine Protein 1+, Urine Glucose (UA) Negative, Urine Ketones Negative, Urine Blood Trace-i, Urine Nitrate Negative, Urine Bilirubin Negative, Urine Urobilinogen 1.0, Ur Leukocyte Esterase Negative, Urine RBC None, Urine WBC Occasional, Ur Squamous Epith Cells None, Urine Bacteria None 07/06/23 13:45: Sodium 132 L, Potassium 3.4 L, Chloride 97 L, Carbon Dioxide 24, Anion Gap 14.4, BUN 60 H, Creatinine 1.40 H, Estimated Creat Clear 50, Estimated GFR 51 L, Est GFR ( Amer) 61, Glucose 122 H, Calcium 8.3 L, Total Bilirubin 1.3, AST 83 H, ALT 40, Alkaline Phosphatase 166 H, Total Creatine Kinase 28 L, Troponin I 0.42 H, Total Protein 6.2 L, Albumin 2.7 L, Globulin 3.5 H, Albumin/Globulin Ratio 0.8 L 07/06/23 17:30: Lactate 7.9 H, Troponin I 0.30 H, Procalcitonin 5.98 H 07/06/23 18:30: Group A Strep Rapid Negative 07/06/23 19:40: Lactate 2.9 H, Troponin I 0.38 H 07/06/23 23:20: Troponin I 0.39 H 07/07/23 05:25: WBC 13.9 H D, RBC 4.16 L, Hgb 13.5 L D, Hct 44.1, MCV 106.0 H, MCH 32.4 H, MCHC 30.6 L, RDW 14.6, Plt Count 272, MPV 9.6, Neut % (Auto) 94.3 H, Lymph % (Auto) 3.3 L, [place] % (Auto) 1.6 L, Eos % (Auto) 0.1, Baso % (Auto) 0.8, Neut # (Auto) 13.1 H, Lymph # (Auto) 0.5 L, [place] # (Auto) 0.2, Eos # (Auto) 0.0, Baso # (Auto) 0.1, Total Counted 100, Neutrophils % (Manual) 91 H, Band Neutrophils % 3.0, Lymphocytes % (Manual) 2 L, Monocytes % (Manual) 4, Platelet Estimate Normal, Poikilocytosis 1+, Basophilic Stippling 1+, Anisocytosis 1+, Macrocytosis 1+, Target Cells 1+, Sodium 131 L, Potassium 3.3 L, Chloride 97 L, Carbon Dioxide 28, Anion Gap 9.3, BUN 66 H, Creatinine 1.50 H, Estimated Creat Clear 46, Estimated GFR 47 L, Est GFR ( Amer) 56 L, Glucose 114 H, Calcium 8.2 L, Total Bilirubin 0.6, AST 77 H, ALT 32, Alkaline Phosphatase 140 H, Total Protein 5.5 L, Albumin 2.4 L D, Globulin 3.1, Albumin/Globulin Ratio 0.8 L I & O for Labs for Last 24 Hours: Intake & Output 07/07/23 07/08/23 07/09/23 07/10/23 23:59 23:59 23:59 23:59 Intake Total 880 / 1180 2019 720 / 1200 480 / 480 Output Total 1620 / 1620 700 / 1050 1860 / 2785 1685 / 1685 Balance -740 / -440 1320 / 970 -1140 / -1585 -1205 / -1205 Weight 149 lb 14.629 oz 158 lb 12.8 oz 160 lb 5 oz 160 lb 5.017 oz Intake & Output 07/04/23 07/05/23 07/06/23 07/07/23 23:59 23:59 23:59 23:59 Intake Total 2330 / 2330 300 / 300 Output Total 670 / 670 Balance 2330 / 2330 -370 / -370 Weight 149 lb 150 lb 4.8 oz Microbiology Reports for the Last 24 Hours: Microbiology 07/06/23 13:20 Blood Blood Culture - Preliminary 07/07/23 10:27 Sputum - Expectorated Sputum Gram Stain - Final 07/06/23 18:30 Nose MRSA Culture - Final Constitutional: Present severe distress Head: Present normocephalic and atraumatic ENT: Present normal exam, normal oropharynx and mucous membranes moist Neck: Present normal inspection and full ROM Respiratory: Present respiratory distress, rhonchi and diminished air movement; Absent wheezes or able to speak in complete sentences Cardiac: Present Irregularly Regular, S1/S2, Tachycardia and radial pulses present GI: Present soft and distention; Absent tenderness or guarding Skin: Present intact; Absent cyanosis or jaundice Neuro: Present alert, awake and oriented x 3 Extremities: Present normal inspection; Absent clubbing or cyanosis Psychiatric: Present normal affect and cooperative Assessment and Plan *Assessment and plan (1) Acute on chronic hypoxic respiratory failure: Status: Acute Category: Medical Code(s): J96.21 - Acute and chronic respiratory failure with hypoxia (2) Healthcare-associated pneumonia: Status: Acute Category: Medical Code(s): J18.9 - Pneumonia, unspecified organism (3) Necrotizing pneumonia: Status: Acute Category: Medical Code(s): J85.0 - Gangrene and necrosis of lung Plan Mr. Flores is a [age]-year-old female greater than 30 PPD, COPD [facility] recently for respiratory distress and hypercarbic respiratory failure, most recent admission May 2023 during which patient was managed for COPD exacerbation along with levofloxacin for a 10-day course for pneumonia presented to the hospital again today with worsening respiratory distress. Admits worsening respiratory status for 7 to 10 days prior to hospital admission. CT upon admission showed significant right lower lobe necrotizing pneumonia which was not present on his CT from May 2023. Neutrophilic leukocytosis. Admission patient also noted to have hypercarbic respiratory failure venous blood gas that improved on arterial blood gas yesterday. Complaints of respiratory viral PCR panel negative. on initial examination severe respiratory distress. Needed needing 3 L nasal cannula for supplementation saturating 90-95. Rhonchorous breath sounds on auscultation. No significant wheezing noted. Hemodynamically stable. Holding his home blood pressure medications. Will closely monitor. Interval update: No acute respiratory events over the weekend. Continued to be using BiPAP at night. Nasal cannula 2-4 during the daytime. Improving leukocytosis. Nasal MRSA PCR negative. Blood cultures abnormal from admission, gram-positive cocci recovered from from anaerobic bottle. No final results yet. Chest x-ray continues show dense right lower lobe consolidative changes. Plan: PT OT. Out of bed to chair. Continue O2 supplementation to maintain O2 saturation goal of 90 to 95%. On 3.5 liters saturating 90% this morning. Repeat sputum cultures with induction. Vancomycin can be discontinued from pulmonary standpoint for hospital-acquired pneumonia at this point of time. Continue cefepime to complete a total of 10 day course. Chest percussion TID DuoNebs every 6 hours scheduled along with Pulmicort every 12 scheduled # Thank you for involving pulmonary in this patient care. Will continue to follow.
[2023-07-10] MEDS: FUROSEMIDE 20MG TABLET 20 MG PO (11:09)
--- NOTE | 2023-07-10 14:35 | P.PN_ITS ---
Subjective *Date: 07/10/23 *Time: 15:57 Interval history: seen at bedside, he is feeling better, he feels better than yesterday, he is on 2L NC, his baseline is 4L at home, denied CP, SOB, N/V Exam Data for Last 24 hours Vital signs and Labs for Last 24 Hours: Temp Pulse Resp BP Pulse Ox O2 Del Method O2 Flow Rate 98.6 F 90 24 110/57 L 91 L Nasal Cannula 4 07/10/23 11:49 07/10/23 12:00 07/10/23 11:49 07/10/23 11:49 07/10/23 11:49 07/10/23 11:49 07/10/23 11:49 FiO2 45 07/10/23 06:20 Laboratory Results - last 24 hr 07/10/23 08:51: WBC 11.3 H D, RBC 3.77 L, Hgb 12.1 L, Hct 39.0 L, MCV 103.4 H, MCH 32.1 H, MCHC 31.0 L, RDW 14.8, Plt Count 266, MPV 8.9, Neut % (Auto) 89.2 H, Lymph % (Auto) 7.3 L, [place] % (Auto) 3.1, Eos % (Auto) 0.3, Baso % (Auto) 0.2, Neut # (Auto) 10.1 H, Lymph # (Auto) 0.8, [place] # (Auto) 0.4, Eos # (Auto) 0.0, Baso # (Auto) 0.0, Total Counted 100, Neutrophils % (Manual) 87 H, Band Neutrophils % 1.0, Lymphocytes % (Manual) 8 L, Monocytes % (Manual) 4, Platelet Estimate Normal, Hypochromasia 2+, Macrocytosis 3+, Stomatocytes 3+, Sodium 134 L, Potassium 3.6, Chloride 100, Carbon Dioxide 35 H, Anion Gap 2.6 L, BUN 25 H D , Creatinine 0.70 D, Estimated Creat Clear 74, Estimated GFR 112, Est GFR ( Amer) 136 D, Glucose 143 H, Calcium 7.6 L, Total Bilirubin 1.0, AST 80 H D, ALT 79 H, Alkaline Phosphatase 193 H, Total Protein 5.2 L, Albumin 2.2 L, Globulin 3.0, Albumin/Globulin Ratio 0.7 L I & O for Last 24 hours: Intake & Output 07/07/23 07/08/23 07/09/23 07/10/23 23:59 23:59 23:59 23:59 Intake Total 880 / 1180 2019 720 / 1200 1020 / 1020 Output Total 1620 / 1620 700 / 1050 1860 / 2785 1785 / 1785 Balance -740 / -440 1320 / 970 -1140 / -1585 -765 / -765 Weight 68 kg 72.03 kg 72.717 kg 72.717 kg Microbiology Reports for the Last 24 Hours: Microbiology 07/06/23 18:30 Throat Group A Streptococcus Screen (ALEXEY) - Final 07/06/23 13:20 Blood Blood Culture - Preliminary Constitutional Constitutional: no acute distress *Routine HEENT Exam Head: Present normocephalic Eye: Present EOMI and PERRL ENT: Present mucous membranes moist *Routine Neck Exam Neck: Present supple; Absent lymphadenopathy *Routine Respiratory Exam Respiratory: Present diminished air movement *Routine Cardiovascular Exam Cardiovascular: Present RRR *Routine Abdominal Exam Abdominal: Present soft and normoactive bowel sounds; Absent tenderness *Routine Extremities Exam Extremities: Absent cyanosis, clubbing or edema *Routine Skin Exam Skin: Present warm; Absent rash *Routine Neurological Exam Neurological: Present alert and oriented X3 Assessment and Plan *Assessment and plan (1) Acute hypoxemic respiratory failure: Status: Acute Category: Medical Code(s): J96.01 - Acute respiratory failure with hypoxia (2) CAD (coronary artery disease): Status: Acute Category: Medical Code(s): I25.10 - Atherosclerotic heart disease of [place] coronary artery without angina pectoris (3) Severe sepsis: Status: Acute Category: Medical Code(s): A41.9 - Sepsis, unspecified organism; R65.20 - Severe sepsis without septic shock (4) Sepsis due to pneumonia: Status: Acute Category: Medical Code(s): J18.9 - Pneumonia, unspecified organism; A41.9 - Sepsis, unspecified organism Plan Patient patient is a 67-year-old male with past medical history of CAD, pulmonary embolism on Eliquis, COPD on 4 to 6 L nasal cannula at home, hypertension hyperlipidemia who presents to the hospital due to shortness of breath, patient mentions his shortness of breath is getting worse and it has not been improving with home and other therapies so he decided to come to the hospital. He also has been having cough productive of yellowish phlegm patient otherwise denied chest pain nausea vomiting diarrhea constipation dysuria. On further evaluation in the emergency department patient was found to have a troponin, elevated WBC count as well as hypoxia requiring BiPAP. Assessment and plan Acute hypoxic respiratory failure satting less than 90% on room air Pneumonia Suspected COPD exacerbation weaned off of BiPAP, now on 2L NC started on cefepime and vancomycin, continue IV Abx Check PCT -pending, urine Legionella antigen, urine strep swab - pending Consult pulmonary service - following DC steroids CTA chest performed in the ED, does show right lung With near complete consolidation of right lower lung, negative for PE Elevated troponin likely demand ischemia - chest pain free Monitor troponin Monitor on cardiac telemetry Continue aspirin, statin Acute kidney injury - resolved Monitor creatinine Avoid nephrotoxic medications Monitor and replace electrolytes, monitor BMP Chronic heart failure with preserved ejection fraction - stable Pulmonary hypertension History of PE Continue home Eliquis Echo 04/26 did show normal EF, preserved ejection fraction, grade 1 diastolic dysfunction, continue home Lasix DVT prophylaxis-on Eliquis monitor inpatient, continue IV abx, continue breathing treatments, patient need PT/OT placement per therapy, cosnulted CM for discharge plannning Awaiting placement
[2023-07-10 17:46] LABS: Legionella pneumophila Urinary Negative (Negative)
[2023-07-10] MEDS: ACETAMINOPHEN 325MG TAB 650 MG PO (18:09)
[2023-07-10] MEDS: MAGIC MOUTHWASH 300ML BOTTLE 15 ML PO (19:48)
[2023-07-10] MEDS: PANTOPRAZOLE 40MG TABLET 40 MG PO (20:58)
[2023-07-10] MEDS: ATORVASTATIN 40MG TABLET 40 MG PO (20:58)
[2023-07-11] VITALS (12 sets, daily range): BP systolic 101–143; BP diastolic 52–81; PULSE 70–105; RESP 17–20; TEMP 36.4–37; O2SAT 87–98; BMI 21.9
--- NOTE | 2023-07-11 00:05 | PC.NURSE ---
RESP CARE NOTE: Pt refused BiPAP multiple times throughout the shift
[2023-07-11 06:27] LABS: Chloride 103 mmol/L (98-107); Potassium 3.9 mmoL/L (3.5-5.1); Sodium 136 mmol/L (136-145)
[2023-07-11 06:29] LABS: Alanine Aminotransferase 60 U/L (12-78); Aspartate Amino Transferase 49 U/L (17-59); Blood Urea Nitrogen 24 mg/dl (9-20); Creatinine Clearance Estimated 70 mL/min (50-200); Estimated Glomerular Filt Rate 96 ml/min (>60); GFR (African American) 117 ML/MIN (>60)
[2023-07-11 06:30] LABS: Albumin Level 2.3 g/dl (3.5-5.0); Albumin/Globulin Ratio 0.8 (1.1-1.8); Alkaline Phosphatase 172 U/L (38-126); Bilirubin,Total 0.7 mg/dl (0.2-1.3); Calcium 7.6 mg/dl (8.4-10.2); Carbon Dioxide 36 mmol/L (22.0-30.0); Glucose 102 mg/dl (74-100); Magnesium 1.5 mg/dl (1.6-2.3); Total Protein,Serum 5.3 g/dl (6.3-8.2)
[2023-07-11 06:40] LABS: Anion Gap 0.9 mEq/L (5-15); Basophils % 0.3 % (0.1-2.0); Eosinophils % 0.3 % (0.1-12.0); Hematocrit 40.9 % (42.0-52.0); Hemoglobin 12.2 g/dL (14.1-18.0); Lymphocytes # 0.8 K/mm3 (0.7-4.5); Lymphocytes % 8.5 % (10-50); Mean Corpuscular HGB Conc 29.9 g/dL (31.8-35.4); Mean Corpuscular Hemoglobin 31.3 pg (27.0-31.2); Mean Corpuscular Volume 104.7 fl (80-94); Mean Platelet Volume 8.9 fl (7.4-10.4); Monocytes # 0.4 K/mm3 (0.1-1.0); Monocytes % 3.8 % (1.7-9.3); Neutrophils # 8.3 K/mm3 (1.8-7.8); Platelet Count 284 K/mm3 (142-424); Red Blood Count 3.91 M/mm3 (4.60-6.20); Red Cell Distribution Width 14.7 % (11.5-17.5); White Blood Count 9.6 K/mm3 (4.8-10.8)
[2023-07-11 06:42] LABS: MANUAL DIFFERENTIAL MANUAL DIFFERENTIAL (MANUAL DIFF)
[2023-07-11] MEDS: BUDESONIDE 0.5MG/2ML NEB 0.5 MG IH ×2 (06:55→18:10)
[2023-07-11] MEDS: IPRATROPIUM/ALBUTEROL 3 ML NEB IH ×4 (06:55→23:24)
--- NOTE | 2023-07-11 06:56 | PC.NURSE ---
pt remained on 4l/nc, refused bi-pap per respiratory therapist
[2023-07-11 08:00] LABS: Lymphocytes % 4 % (10-50); Macrocytosis 1+; Monocytes % 1 % (2-9); Neutrophils % 95 % (42-76); Platelet Estimate Normal; Total Cells Counted 100
[2023-07-11] MEDS: CITALOPRAM 40MG TABLET 40 MG PO (09:03)
[2023-07-11] MEDS: APIXABAN 5MG TABLET 5 MG PO ×2 (09:03→20:28)
[2023-07-11] MEDS: AMLODIPINE 10MG TABLET 10 MG PO (09:03)
[2023-07-11] MEDS: MAGIC MOUTHWASH 300ML BOTTLE 15 ML PO ×2 (09:03→23:21)
[2023-07-11] MEDS: BISOPROLOL 5MG TABLET 5 MG PO (09:03)
[2023-07-11] MEDS: FOLIC ACID 1MG TABLET 1 MG PO (09:03)
[2023-07-11] MEDS: ASPIRIN EC 81MG TABLET 81 MG PO (09:03)
[2023-07-11] MEDS: MAGNESIUM SULFATE IN WATER 2 GM/50 ML PIGGYBACK IV (09:10)
--- NOTE | 2023-07-11 09:36 | EXP.PULM.PN ---
Subjective *Date: 07/11/23 *Time: 10:59 Interval history: No acute respiratory events overnight. Patient denies any new respiratory complaints. Pulmonology Exam Inpatient Vital signs and Labs for Last 24 Hours: Temp Pulse Resp BP Pulse Ox O2 Del Method O2 Flow Rate 98.6 F 101 H 20 121/76 91 L Nasal Cannula 4 07/11/23 08:00 07/11/23 08:00 07/11/23 08:00 07/11/23 08:00 07/11/23 08:00 07/11/23 08:52 07/11/23 08:52 FiO2 45 07/10/23 06:20 Laboratory Results - last 24 hr 07/07/23 00:01: Ur L.pneumophila Ag Negative 07/11/23 05:46: WBC 9.6, RBC 3.91 L, Hgb 12.2 L, Hct 40.9 L, MCV 104.7 H, MCH 31.3 H, MCHC 29.9 L, RDW 14.7, Plt Count 284, MPV 8.9, Neut % (Auto) 87.0 H, Lymph % (Auto) 8.5 L, [place] % (Auto) 3.8, Eos % (Auto) 0.3, Baso % (Auto) 0.3, Neut # (Auto) 8.3 H, Lymph # (Auto) 0.8, [place] # (Auto) 0.4, Eos # (Auto) 0.0, Baso # (Auto) 0.0, Total Counted 100, Neutrophils % (Manual) 95 H, Lymphocytes % (Manual) 4 L, Monocytes % (Manual) 1 L, Platelet Estimate Normal, Macrocytosis 1+, Sodium 136, Potassium 3.9, Chloride 103, Carbon Dioxide 36 H, Anion Gap 0.9 L, BUN 24 H, Creatinine 0.80, Estimated Creat Clear 70, Estimated GFR 96, Est GFR ( Amer) 117, Glucose 102 H D, Calcium 7.6 L, Magnesium 1.5 L, Total Bilirubin 0.7, AST 49 D, ALT 60, Alkaline Phosphatase 172 H, Total Protein 5.3 L, Albumin 2.3 L, Globulin 3.0, Albumin/Globulin Ratio 0.8 L Temp Pulse Resp BP Pulse Ox O2 Del Method O2 Flow Rate 97.1 F L 97 H 20 94/68 L 94 L Nasal Cannula 3 07/07/23 08:00 07/07/23 08:00 07/07/23 08:00 07/07/23 08:00 07/07/23 08:00 07/07/23 08:00 07/07/23 08:00 FiO2 45 07/07/23 06:08 Laboratory Results - last 24 hr 07/06/23 13:09: WBC 21.4 H*, RBC 5.24, Hgb 16.7, Hct 55.9 H, MCV 106.7 H, MCH 31.8 H, MCHC 29.8 L, RDW 14.4, Plt Count 317, MPV 8.9, Neut % (Auto) 91.8 H, Lymph % (Auto) 4.4 L, [place] % (Auto) 2.1, Eos % (Auto) 0.3, Baso % (Auto) 1.5, Neut # (Auto) 19.6 H, Lymph # (Auto) 0.9, [place] # (Auto) 0.4, Eos # (Auto) 0.1, Baso # (Auto) 0.3 H, Total Counted 100, Neutrophils % (Manual) 94 H, Lymphocytes % (Manual) 5 L, Monocytes % (Manual) 1 L, Platelet Estimate Normal, RBC Morphology Not Reportable, Macrocytosis 1+, Stomatocytes 1+ 07/06/23 13:17: VBG pH 7.26 L, VBG pCO2 60.3 H, VBG pO2 34.0, VBG HCO3 26.7, VBG Total CO2 28.5 H, VBG O2 Saturation 50.4, VBG Base Excess -0.3, VBG Lactic Acid 5.3 H 07/06/23 13:18: Chlamy pneumoniae PCR TNP, Adenovirus (PCR) Not detected, B. pertussis DNA (PCR) TNP, Coronavirus OC43 (PCR) Not detected, Coronavirus HKU1 (PCR) Not detected, Coronavirus 229E (PCR) Not detected, SARS-CoV-2 (PCR) Not detected, Coronavirus NL63 (PCR) Not detected, Human Metapneumovir PCR Not detected, Influenza A (H1) PCR Not detected, Influ A (H1N1/09) PCR Not detected, Influenza A (H3) PCR Not detected, Influenza Type A (PCR) Not detected, Influenza Type B (PCR) Not detected, M. pneumoniae (PCR) TNP, Parainfluenza 1 (PCR) Not detected, Parainfluenza 2 (PCR) Not detected, Parainfluenza 3 (PCR) Not detected, Parainfluenza 4 (PCR) Not detected, RSV (PCR) Not detected, Entero/Rhino (PCR) Not detected 07/06/23 13:25: Specimen Source Left radial, O2 % 100%, ABG pH 7.31 L, ABG pCO2 47.8 H, ABG pO2 67.7 L, ABG HCO3 23.3, ABG Total CO2 24.7, ABG O2 Saturation 90, ABG Base Excess -3.1 L, Sukumar Test Acceptable 07/06/23 13:26: Urine Color Yellow, Urine Appearance Clear, Urine pH 6.0, Ur Specific [place] 1.025, Urine Protein 1+, Urine Glucose (UA) Negative, Urine Ketones Negative, Urine Blood Trace-i, Urine Nitrate Negative, Urine Bilirubin Negative, Urine Urobilinogen 1.0, Ur Leukocyte Esterase Negative, Urine RBC None, Urine WBC Occasional, Ur Squamous Epith Cells None, Urine Bacteria None 07/06/23 13:45: Sodium 132 L, Potassium 3.4 L, Chloride 97 L, Carbon Dioxide 24, Anion Gap 14.4, BUN 60 H, Creatinine 1.40 H, Estimated Creat Clear 50, Estimated GFR 51 L, Est GFR ( Amer) 61, Glucose 122 H, Calcium 8.3 L, Total Bilirubin 1.3, AST 83 H, ALT 40, Alkaline Phosphatase 166 H, Total Creatine Kinase 28 L, Troponin I 0.42 H, Total Protein 6.2 L, Albumin 2.7 L, Globulin 3.5 H, Albumin/Globulin Ratio 0.8 L 07/06/23 17:30: Lactate 7.9 H, Troponin I 0.30 H, Procalcitonin 5.98 H 07/06/23 18:30: Group A Strep Rapid Negative 07/06/23 19:40: Lactate 2.9 H, Troponin I 0.38 H 07/06/23 23:20: Troponin I 0.39 H 07/07/23 05:25: WBC 13.9 H D, RBC 4.16 L, Hgb 13.5 L D, Hct 44.1, MCV 106.0 H, MCH 32.4 H, MCHC 30.6 L, RDW 14.6, Plt Count 272, MPV 9.6, Neut % (Auto) 94.3 H, Lymph % (Auto) 3.3 L, [place] % (Auto) 1.6 L, Eos % (Auto) 0.1, Baso % (Auto) 0.8, Neut # (Auto) 13.1 H, Lymph # (Auto) 0.5 L, [place] # (Auto) 0.2, Eos # (Auto) 0.0, Baso # (Auto) 0.1, Total Counted 100, Neutrophils % (Manual) 91 H, Band Neutrophils % 3.0, Lymphocytes % (Manual) 2 L, Monocytes % (Manual) 4, Platelet Estimate Normal, Poikilocytosis 1+, Basophilic Stippling 1+, Anisocytosis 1+, Macrocytosis 1+, Target Cells 1+, Sodium 131 L, Potassium 3.3 L, Chloride 97 L, Carbon Dioxide 28, Anion Gap 9.3, BUN 66 H, Creatinine 1.50 H, Estimated Creat Clear 46, Estimated GFR 47 L, Est GFR ( Amer) 56 L, Glucose 114 H, Calcium 8.2 L, Total Bilirubin 0.6, AST 77 H, ALT 32, Alkaline Phosphatase 140 H, Total Protein 5.5 L, Albumin 2.4 L D, Globulin 3.1, Albumin/Globulin Ratio 0.8 L I & O for Labs for Last 24 Hours: Intake & Output 07/08/23 07/09/23 07/10/23 07/11/23 23:59 23:59 23:59 23:59 Intake Total 2019 720 / 1200 1440 / 1440 Output Total 700 / 1050 1860 / 2785 2125 / 2125 750 / 750 Balance 1320 / 970 -1140 / -1585 -685 / -685 -750 / -750 Weight 158 lb 12.8 oz 160 lb 5 oz 160 lb 5.017 oz 153 lb Intake & Output 07/04/23 07/05/23 07/06/23 07/07/23 23:59 23:59 23:59 23:59 Intake Total 2330 / 2330 300 / 300 Output Total 670 / 670 Balance 2330 / 2330 -370 / -370 Weight 149 lb 150 lb 4.8 oz Microbiology Reports for the Last 24 Hours: Microbiology 07/06/23 18:30 Throat Group A Streptococcus Screen (ALEXEY) - Final 07/06/23 13:20 Blood Blood Culture - Preliminary Constitutional: Present moderate distress Head: Present normocephalic and atraumatic ENT: Present normal exam, normal oropharynx and mucous membranes moist Neck: Present normal inspection and full ROM Respiratory: Present respiratory distress, rhonchi and diminished air movement; Absent wheezes or able to speak in complete sentences Cardiac: Present Irregularly Regular, S1/S2, Tachycardia and radial pulses present GI: Present soft and distention; Absent tenderness or guarding Skin: Present intact; Absent cyanosis or jaundice Neuro: Present alert, awake and oriented x 3 Extremities: Present normal inspection; Absent clubbing or cyanosis Psychiatric: Present normal affect and cooperative Assessment and Plan *Assessment and plan (1) Acute on chronic hypoxic respiratory failure: Status: Acute Category: Medical Code(s): J96.21 - Acute and chronic respiratory failure with hypoxia (2) Healthcare-associated pneumonia: Status: Acute Category: Medical Code(s): J18.9 - Pneumonia, unspecified organism (3) Necrotizing pneumonia: Status: Acute Category: Medical Code(s): J85.0 - Gangrene and necrosis of lung Plan Mr. Flores is a [age]-year-old female greater than 30 PPD, COPD [facility] recently for respiratory distress and hypercarbic respiratory failure, most recent admission May 2023 during which patient was managed for COPD exacerbation along with levofloxacin for a 10-day course for pneumonia presented to the hospital again today with worsening respiratory distress. Admits worsening respiratory status for 7 to 10 days prior to hospital admission. CT upon admission showed significant right lower lobe necrotizing pneumonia which was not present on his CT from May 2023. Neutrophilic leukocytosis. Admission patient also noted to have hypercarbic respiratory failure venous blood gas that improved on arterial blood gas yesterday. Complaints of respiratory viral PCR panel negative. on initial examination severe respiratory distress. Needed needing 3 L nasal cannula for supplementation saturating 90-95. Rhonchorous breath sounds on auscultation. No significant wheezing noted. Hemodynamically stable. Holding his home blood pressure medications. Will closely monitor. Nasal MRSA PCR negative. Chest x-ray 07/10/2023 continue to show dense right lower lobe consolidative changes Interval update: No acute respiratory events overnight. Stable oxygen requirements continued to be needing 3 to 4 L to maintain O2 saturation of 90% and above. Plan: Aggressive PT OT Out of bed to chair. Continue cefepime to complete a total of 14 day course. F/U Repeat sputum cultures with induction, sputum cultures from admission no growth. Continue Chest percussion TID Continue O2 supplementation to maintain O2 saturation goal of 90 to 95%. DuoNebs every 6 hours scheduled along with Pulmicort every 12 scheduled # Thank you for involving pulmonary in this patient care. Will continue to follow.
--- NOTE | 2023-07-11 10:15 | XR_ITS ---
FINAL REPORT CLINICAL HISTORY: Confirm PICC line placement COMPARISON: 07/10/2023 FINDINGS: A single portable view of the chest was obtained. There is a new left-sided PICC line with the tip in the mid SVC. The heart size and pulmonary vascularity are within normal limits. The mediastinum is within normal limits. There are persistent oxswl-[id number]-left pulmonary opacities which are worrisome for pneumonia. The bony thorax is intact. IMPRESSION: Left-sided PICC line tip in the mid SVC. Persistent pulmonary opacities worrisome for pneumonia. Reviewed, Interpreted and Dictated by Kailash Fitch III, MD Transcribed by Yuli Godoy Authenticated and [facility]
[2023-07-11] MEDS: CEFEPIME HCL 2 GM in 0.9 % SODIUM CHLORIDE 100 ML IV ×2 (10:25→20:28)
--- NOTE | 2023-07-11 18:08 | P.PN_ITS ---
Subjective *Date: 07/11/23 *Time: 18:08 Interval history: Patient stable on 4 L oxygen this morning on rounds. Denies any fever overnight. No nausea or vomiting. Meeting criteria for discharge to rehab. Tolerating p.o. intake. Cough remains productive Medical Exam Vital signs and Labs for Last 24 Hours: Vital Signs Temp Pulse Pulse Resp BP Pulse Ox O2 Del Method 07/11/23 17:00 Nasal Cannula 07/11/23 15:48 97.9 F 84 20 127/70 91 L Nasal Cannula 07/11/23 15:00 Nasal Cannula 07/11/23 11:43 Nasal Cannula 07/11/23 11:35 97.6 F 76 17 143/52 H 98 Simple Mask 07/11/23 11:24 76 07/11/23 11:24 70 07/11/23 11:24 92 L Nasal Cannula 07/11/23 11:00 Nasal Cannula 07/11/23 08:52 Nasal Cannula 07/11/23 08:00 100 H 07/11/23 08:00 Nasal Cannula 07/11/23 08:00 98.6 F 101 H 20 121/76 91 L Nasal Cannula 07/11/23 06:56 91 H 07/11/23 06:56 94 H 07/11/23 06:56 89 L Nasal Cannula 07/11/23 05:00 Nasal Cannula 07/11/23 04:00 95 H 07/11/23 04:00 98.3 F 105 H 20 134/81 90 L Nasal Cannula 07/11/23 03:00 Nasal Cannula 07/11/23 01:00 Nasal Cannula 07/11/23 00:00 Nasal Cannula 07/11/23 00:00 83 07/11/23 00:00 97.6 F 82 18 112/68 95 Nasal Cannula 07/10/23 23:57 81 07/10/23 23:57 86 07/10/23 23:00 Nasal Cannula 07/10/23 21:00 Nasal Cannula 07/10/23 21:00 Nasal Cannula 07/10/23 20:00 99 H 07/10/23 20:00 98.0 F 95 H 20 99/59 L 95 Nasal Cannula 07/10/23 18:57 101 H 07/10/23 18:57 101 H 18 07/10/23 18:57 106 H 07/10/23 18:55 91 L Nasal Cannula 07/10/23 18:17 Nasal Cannula O2 Flow Rate 07/11/23 17:00 4 07/11/23 15:48 4 07/11/23 15:00 4 07/11/23 11:43 4 07/11/23 11:35 07/11/23 11:24 07/11/23 11:24 07/11/23 11:24 4 07/11/23 11:00 4 07/11/23 08:52 4 07/11/23 08:00 07/11/23 08:00 4 07/11/23 08:00 4 07/11/23 06:56 07/11/23 06:56 07/11/23 06:56 4 07/11/23 05:00 4 07/11/23 04:00 07/11/23 04:00 4 07/11/23 03:00 4 07/11/23 01:00 4 07/11/23 00:00 4 07/11/23 00:00 07/11/23 00:00 4 07/10/23 23:57 07/10/23 23:57 07/10/23 23:00 4 07/10/23 21:00 4 07/10/23 21:00 4 07/10/23 20:00 07/10/23 20:00 4 07/10/23 18:57 07/10/23 18:57 07/10/23 18:57 07/10/23 18:55 4 07/10/23 18:17 4 Intake and Output 07/11/23 07/11/23 07/11/23 07:59 15:59 23:59 Intake Total 680 / 800 120 / 800 Output Total 450 / 1700 1250 / 1700 Balance -450 / -900 -570 / -900 120 / -900 Intake: Intake, Oral Amount 530 / 650 120 / 650 Intake, Total IV Amount 150 / 150 Cefepime HCl 2 gm In 0.9 % 100 / 100 Sodium Chloride 100 ml @ 200 mls/hr IV Q12H [facility] Rx#:[id number] Magnesium Sulfate in Water 2 gm 50 / 50 In 50 ml @ 50 mls/hr IV ONCE ONE Rx#:[id number] Output: Output, Urine Amount 450 / 1700 1250 / 1700 Other: Number of Unmeasured Voids 1 0 Number of Bowel Movements 1 1 Weight 69.4 kg Patient Weight 07/11/23 23:59 Weight 69.4 kg Laboratory Results - last 24 hr 07/11/23 05:46: WBC 9.6, RBC 3.91 L, Hgb 12.2 L, Hct 40.9 L, MCV 104.7 H, MCH 31.3 H, MCHC 29.9 L, RDW 14.7, Plt Count 284, MPV 8.9, Neut % (Auto) 87.0 H, Lymph % (Auto) 8.5 L, [place] % (Auto) 3.8, Eos % (Auto) 0.3, Baso % (Auto) 0.3, Neut # (Auto) 8.3 H, Lymph # (Auto) 0.8, [place] # (Auto) 0.4, Eos # (Auto) 0.0, Baso # (Auto) 0.0, Total Counted 100, Neutrophils % (Manual) 95 H, Lymphocytes % (Manual) 4 L, Monocytes % (Manual) 1 L, Platelet Estimate Normal, Macrocytosis 1+, Sodium 136, Potassium 3.9, Chloride 103, Carbon Dioxide 36 H, Anion Gap 0.9 L, BUN 24 H, Creatinine 0.80, Estimated Creat Clear 70, Estimated GFR 96, Est GFR ( Amer) 117, Glucose 102 H D, Calcium 7.6 L, Magnesium 1.5 L, Total Bilirubin 0.7, AST 49 D, ALT 60, Alkaline Phosphatase 172 H, Total Protein 5.3 L, Albumin 2.3 L, Globulin 3.0, Albumin/Globulin Ratio 0.8 L I & O for Labs for Last 24 Hours: Intake & Output 07/08/23 07/09/23 07/10/23 07/11/23 23:59 23:59 23:59 23:59 Intake Total 2019 / 2019 720 / 1200 1440 / 1440 800 / 800 Output Total 700 / 1050 1860 / 2785 2125 / 2125 1700 / 1700 Balance 1320 / 970 -1140 / -1585 -685 / -685 -900 / -900 Weight 72.03 kg 72.717 kg 72.717 kg 69.4 kg Microbiology Reports for the Last 24 Hours: Microbiology 07/06/23 13:09 Blood Blood Culture - Preliminary Constitutional: Present no acute distress, average body habitus and chronically ill appearing Head: Present atraumatic Respiratory: Present accessory muscle use, prolonged expiratory phase, wheezes (diffuse, mild), distant breath sounds and diminished air movement; Absent rhonchi or crackles Comment:: barrel chested Cardiac: Present Regular Rhythm and Tachycardia GI: Present soft and normal bowel sounds; Absent distention or tenderness Extremities: Present normal inspection and full ROM Skin: Present intact; Absent erythema Neuro: Present Grossly Intact, alert, awake, oriented x 3 and moves all extremities Assessment and Plan *Assessment and plan (1) Acute hypoxemic respiratory failure: Status: Acute Category: Medical Code(s): J96.01 - Acute respiratory failure with hypoxia (2) Necrotizing pneumonia: Status: Acute Category: Medical Code(s): J85.0 - Gangrene and necrosis of lung (3) Healthcare-associated pneumonia: Status: Acute Category: Medical Code(s): J18.9 - Pneumonia, unspecified organism (4) CAD (coronary artery disease): Status: Acute Category: Medical Code(s): I25.10 - Atherosclerotic heart disease of [place] coronary artery without angina pectoris (5) Severe sepsis: Status: Acute Category: Medical Code(s): A41.9 - Sepsis, unspecified organism; R65.20 - Severe sepsis without septic shock (6) Sepsis due to pneumonia: Status: Acute Category: Medical Code(s): J18.9 - Pneumonia, unspecified organism; A41.9 - Sepsis, unspecified organism (7) Non-ST elevation [place] (NSTEMI): Status: Acute Category: Medical Code(s): I21.4 - Non-ST elevation (NSTEMI) myocardial infarction Plan Patient patient is a 67-year-old male with past medical history of CAD, pulmonary embolism on Eliquis, COPD on 4 to 6 L nasal cannula at home, hypertension hyperlipidemia who presents to the hospital due to shortness of breath, patient mentions his shortness of breath is getting worse and it has not been improving with home and other therapies so he decided to come to the hospital. He also has been having cough productive of yellowish phlegm patient otherwise denied chest pain nausea vomiting diarrhea constipation dysuria. On further evaluation in the emergency department patient was found to have a troponin, elevated WBC count as well as hypoxia requiring BiPAP. Has been from BiPAP. Currently on 4 L oxygen. Stable to discharge to rehab. Awaiting placement. Pulmonology and therapy assisting with care. Problems addressed as follows: Acute hypoxic respiratory failure secondary to healthcare acquired pneumonia with necrotizing component - Continue cefepime 2 g twice daily IV - pending, urine Legionella antigen, urine strep swab - pending - Pulmonology consulted, discussed case today. Recommend continuing cefepime to complete [address] PICC line today. Repeat sputum cultures pending. - Continue chest percussion 3 times a day. Supplemental oxygen with goal sats greater than 90%. Currently on 3 to 4 L. DuoNebs every 6 hours scheduled with Pulmicort every 12 hours scheduled. -White cell count normal at 9.6. Hemoglobin 12.2. Repeat CBC, CMP, magnesium ordered for the morning Hypomagnesemia: 1.5 on morning labs. Will treat with 2 g IV x 1. NSTEMI type II - Elevated troponin likely demand ischemia - chest pain free -Serial troponins stable -Has had no ischemic changes. Okay to discontinue telemetry - Continue aspirin, statin Chronic heart failure with preserved ejection fraction - stable Pulmonary hypertension History of PE - Continue home Eliquis - Echo 04/26 did show normal EF, preserved ejection fraction, grade 1 diastolic dysfunction, continue home Lasix DVT prophylaxis-on Eliquis Full code Cardiac diet
[2023-07-11] MEDS: MELATONIN 5MG TABLET 5 MG PO (20:28)
[2023-07-11] MEDS: PANTOPRAZOLE 40MG TABLET 40 MG PO (20:28)
[2023-07-11] MEDS: ATORVASTATIN 40MG TABLET 40 MG PO (20:28)
[2023-07-11] MEDS: ACETAMINOPHEN 325MG TAB 650 MG PO (23:18)
[2023-07-12] VITALS: BP 99/56; PULSE 81; RESP 17; TEMP 36.7; O2SAT 94
[2023-07-12 04:00] VITALS: BP 120/76; PULSE 76; RESP 16; TEMP 36.6; O2SAT 98; BMI 22.1
[2023-07-12 05:29] LABS: Basophils % 0.3 % (0.1-2.0); Eosinophils # 0.1 K/mm3 (0.0-0.4); Eosinophils % 0.8 % (0.1-12.0); Hematocrit 38.2 % (42.0-52.0); Hemoglobin 11.6 g/dL (14.1-18.0); Lymphocytes # 1.2 K/mm3 (0.7-4.5); Lymphocytes % 13.4 % (10-50); Mean Corpuscular HGB Conc 30.4 g/dL (31.8-35.4); Mean Corpuscular Volume 105.2 fl (80-94); Monocytes # 0.4 K/mm3 (0.1-1.0); Monocytes % 4.8 % (1.7-9.3); Neutrophils # 6.9 K/mm3 (1.8-7.8); Neutrophils % 80.8 % (37.0-80.0); Platelet Count 318 K/mm3 (142-424); Red Blood Count 3.63 M/mm3 (4.60-6.20); Red Cell Distribution Width 14.9 % (11.5-17.5); White Blood Count 8.6 K/mm3 (4.8-10.8)
[2023-07-12 05:36] LABS: Chloride 103 mmol/L (98-107); Potassium 3.8 mmoL/L (3.5-5.1); Sodium 136 mmol/L (136-145)
[2023-07-12 05:38] LABS: Blood Urea Nitrogen 23 mg/dl (9-20); Creatinine Clearance Estimated 71 mL/min (50-200); Estimated Glomerular Filt Rate 112 ml/min (>60); GFR (African American) 136 ML/MIN (>60)
[2023-07-12 05:39] LABS: Alanine Aminotransferase 51 U/L (12-78); Albumin Level 2.2 g/dl (3.5-5.0); Albumin/Globulin Ratio 0.8 (1.1-1.8); Alkaline Phosphatase 168 U/L (38-126); Anion Gap 0.8 mEq/L (5-15); Aspartate Amino Transferase 52 U/L (17-59); Bilirubin,Total 0.7 mg/dl (0.2-1.3); Calcium 7.6 mg/dl (8.4-10.2); Carbon Dioxide 36 mmol/L (22.0-30.0); Globulin 2.9 g/dL (1.3-3.2); Glucose 128 mg/dl (74-100); Total Protein,Serum 5.1 g/dl (6.3-8.2)
[2023-07-12 05:41] LABS: Magnesium 1.8 mg/dl (1.6-2.3)
[2023-07-12] MEDS: BUDESONIDE 0.5MG/2ML NEB 0.5 MG IH (06:09)
[2023-07-12] MEDS: IPRATROPIUM/ALBUTEROL 3 ML NEB IH ×2 (06:09→11:09)
[2023-07-12 06:12] VITALS: PULSE 78; PULSE 79
[2023-07-12 07:47] VITALS: BP 103/61; PULSE 83; RESP 20; TEMP 36.7; O2SAT 95
[2023-07-12] MEDS: MAGIC MOUTHWASH 300ML BOTTLE 15 ML PO (09:05)
[2023-07-12] MEDS: CEFEPIME HCL 2 GM in 0.9 % SODIUM CHLORIDE 100 ML IV (09:05)
--- NOTE | 2023-07-12 09:18 | P.DS_ITS ---
General Admission date:: 07/06/23 Discharge date: 07/12/23 HPI HPI HPI: Patient patient is a 67-year-old male with past medical history of CAD, pulmonary embolism on Eliquis, COPD on 4 to 6 L nasal cannula at home, hypertension hyperlipidemia who presents to the hospital due to shortness of breath, patient mentions his shortness of breath is getting worse and it has not been improving with home and other therapies so he decided to come to the hospital. He also has been having cough productive of yellowish phlegm patient otherwise denied chest pain nausea vomiting diarrhea constipation dysuria. On further evaluation in the emergency department patient was found to have a troponin, elevated WBC count as well as hypoxia requiring BiPAP. Hospital Course Hospital Course Hospital Course: Mr. Flores is a 67-year-old male with past medical history of CAD, pulmonary embolism on Eliquis, COPD on 4 to 6 L nasal cannula at home, hypertension hyperlipidemia who presents to the hospital due to shortness of breath, patient mentions his shortness of breath is getting worse and it has not been improving with home and other therapies so he decided to come to the hospital. He also has been having cough productive of yellowish phlegm patient otherwise denied chest pain nausea vomiting diarrhea constipation dysuria. On further evaluation in the emergency department patient was found to have a troponin, elevated WBC count as well as hypoxia requiring BiPAP. Has been from BiPAP. Weaned to 3 to 4 L oxygen. Stable to discharge to rehab. Has been accepted by [facility] for further management. Pulmonology and therapy assisting with care. Problems addressed as follows: Acute hypoxic respiratory failure secondary to healthcare acquired pneumonia with necrotizing component -Initially requiring BiPAP. Showing gradual improvement in his respiratory failure. Weaned to supplemental oxygen. Continues to require 3 to 4 L to maintain sats above 90%. Pulmonology consulted and assisted with care during admission. Recommend continuing cefepime 2g IV to complete 14 days total of antibiotics. Needs 8-1/2 more days of therapy. PICC line was placed on 07/10. PICC line can be removed after completing antibiotics. Would recommend obtaining CBC, CMP, magnesium on the day of completion of antibiotics prior to removal of PICC line. Sputum culture still pending at this time. Recommend chest percussion if able at the facility. If not, will provide flutter valve for patient to use 3 times a day. DuoNebs every 6 hours scheduled. White cell count has normalized to 8.6. Still having productive cough. At his baseline at this time. Hypomagnesemia: Improved with supplementation, 1.8 on morning of discharge. Will treat with 2 g IV x 1 today. NSTEMI type II - Elevated troponin likely demand ischemia - chest pain free. Serial troponins were stable. No ischemic changes on EKG or telemetry. Will continue aspirin and statin. No further intervention at this time. Chronic heart failure with preserved ejection fraction - stable Pulmonary hypertension History of PE - Continue home Eliquis. Echo 04/26 did show normal EF, preserved ejection fraction, grade 1 diastolic dysfunction, continue home Lasix Exam Data for Last 24 hours Vital signs and Labs for Last 24 Hours: Temp Pulse Resp BP Pulse Ox O2 Del Method O2 Flow Rate 98.0 F 83 20 103/61 L 95 Nasal Cannula 4 07/12/23 07:47 07/12/23 07:47 07/12/23 07:47 07/12/23 07:47 07/12/23 07:47 07/12/23 07:47 07/12/23 07:47 FiO2 45 07/10/23 06:20 Laboratory Results - last 24 hr 07/12/23 04:50: WBC 8.6, RBC 3.63 L, Hgb 11.6 L, Hct 38.2 L, MCV 105.2 H, MCH 32.0 H, MCHC 30.4 L, RDW 14.9, Plt Count 318, MPV 9.0, Neut % (Auto) 80.8 H, Lymph % (Auto) 13.4, [place] % (Auto) 4.8, Eos % (Auto) 0.8, Baso % (Auto) 0.3, Neut # (Auto) 6.9, Lymph # (Auto) 1.2, [place] # (Auto) 0.4, Eos # (Auto) 0.1, Baso # (Auto) 0.0, Sodium 136, Potassium 3.8, Chloride 103, Carbon Dioxide 36 H, Anion Gap 0.8 L, BUN 23 H, Creatinine 0.70, Estimated Creat Clear 71, Estimated GFR 112, Est GFR ( Amer) 136, Glucose 128 H D, Calcium 7.6 L, Magnesium 1.8 D, Total Bilirubin 0.7, AST 52, ALT 51, Alkaline Phosphatase 168 H, Total Protein 5.1 L, Albumin 2.2 L, Globulin 2.9, Albumin/Globulin Ratio 0.8 L I & O for Last 24 hours: Intake & Output 07/09/23 07/10/23 07/11/23 07/12/23 23:59 23:59 23:59 23:59 Intake Total 720 / 1200 1440 / 1440 1160 / 1160 240 / 240 Output Total 1860 / 2785 2125 / 2125 1989 120 / 120 Balance -1140 / -1585 -685 / -685 -830 / -830 120 / 120 Weight 72.717 kg 72.717 kg 69.4 kg 70.035 kg Microbiology Reports for the Last 24 Hours: Microbiology 07/07/23 10:27 Sputum - Expectorated Sputum Gram Stain - Final 07/07/23 10:27 Sputum - Expectorated Sputum Sputum Culture - Final 07/06/23 13:09 Blood Blood Culture - Preliminary Constitutional Constitutional: no acute distress, average body habitus, chronically ill appearing and cooperative *Routine HEENT Exam Head: Present normocephalic Eye: Present EOMI and PERRL ENT: Present mucous membranes moist *Routine Neck Exam Neck: Present supple; Absent lymphadenopathy *Routine Respiratory Exam Respiratory: Present prolonged expiratory phase, rhonchi, wheezes and diminished air movement; Absent crackles *Routine Cardiovascular Exam Cardiovascular: Present RRR *Routine Abdominal Exam Abdominal: Present soft and normoactive bowel sounds; Absent tenderness *Routine Extremities Exam Extremities: Absent cyanosis, clubbing or edema *Routine Skin Exam Skin: Present warm; Absent rash *Routine Neurological Exam Neurological: Present alert, oriented X3 and moving all extremities; Absent altered mental status Results Data Completed and Pending Labs on day of discharge: Labs from last 24 hours 07/12/23 04:50 WBC 8.6 RBC 3.63 L Hgb 11.6 L Hct 38.2 L MCV 105.2 H MCH 32.0 H MCHC 30.4 L RDW 14.9 Plt Count 318 MPV 9.0 Neut % (Auto) 80.8 H Lymph % (Auto) 13.4 [place] % (Auto) 4.8 Eos % (Auto) 0.8 Baso % (Auto) 0.3 Neut # (Auto) 6.9 Lymph # (Auto) 1.2 [place] # (Auto) 0.4 Eos # (Auto) 0.1 Baso # (Auto) 0.0 Sodium 136 Potassium 3.8 Chloride 103 Carbon Dioxide 36 H Anion Gap 0.8 L BUN 23 H Creatinine 0.70 Estimated Creat Clear 71 Estimated GFR 112 Est GFR ( Amer) 136 Glucose 128 H D Calcium 7.6 L Magnesium 1.8 D Total Bilirubin 0.7 AST 52 ALT 51 Alkaline Phosphatase 168 H Total Protein 5.1 L Albumin 2.2 L Globulin 2.9 Albumin/Globulin Ratio 0.8 L Preliminary micro results at discharge 07/06/23 13:09 Blood Culture - Preliminary Blood 07/06/23 13:20 Blood Culture - Preliminary Blood DS: Diagnosis Discharge Diagnosis (1) Acute hypoxemic respiratory failure: Status: Acute Code(s): J96.01 - Acute respiratory failure with hypoxia (2) Necrotizing pneumonia: Status: Acute Code(s): J85.0 - Gangrene and necrosis of lung (3) Healthcare-associated pneumonia: Status: Acute Code(s): J18.9 - Pneumonia, unspecified organism (4) CAD (coronary artery disease): Status: Acute Code(s): I25.10 - Atherosclerotic heart disease of [place] coronary artery without angina pectoris (5) Severe sepsis: Status: Acute Code(s): A41.9 - Sepsis, unspecified organism; R65.20 - Severe sepsis without septic shock (6) Sepsis due to pneumonia: Status: Acute Code(s): J18.9 - Pneumonia, unspecified organism; A41.9 - Sepsis, unspecified organism (7) Non-ST elevation [place] (NSTEMI): Status: Acute Code(s): I21.4 - Non-ST elevation (NSTEMI) myocardial infarction Meds Home Medications and Allergies Home Medications Medication Instructions Recorded Confirmed Type albuterol sulfate 90 mcg/actuation 1 - 2 puffs IH Q4HP PRN Shortness 03/24/20 07/07/23 History aerosol inhaler Of Breath Or Wheezing amlodipine 10 mg tablet 10 mg PO DAILY 03/24/20 07/06/23 History escitalopram oxalate 20 mg tablet 20 mg PO DAILY 03/24/20 07/07/23 History aspirin 81 mg tablet,delayed 81 mg PO DAILY 05/22/23 07/06/23 History release bisoprolol fumarate 5 mg tablet 5 mg PO DAILY 05/22/23 07/06/23 History fluticasone fur. 100 mcg-umeclid 1 inh inhalation DAILY 05/22/23 07/07/23 History 62.5 mcg-vilant 25 mcg inhalat.powder (Trelegy Ellipta) folic acid 1 mg tablet 1 mg PO DAILY 05/22/23 07/07/23 History apixaban 5 mg tablet (Eliquis) 5 mg PO BID 07/07/23 07/07/23 History furosemide 20 mg tablet 20 mg PO MOWEFR 07/07/23 07/07/23 History lisinopril 20 1 tab PO DAILY 07/07/23 07/07/23 History mg-hydrochlorothiazide 12.5 mg tablet pantoprazole 40 mg tablet,delayed 40 mg PO DAILY 07/07/23 07/07/23 History release rosuvastatin 10 mg tablet 10 mg PO PM 07/07/23 07/07/23 History Magic Mouthwash [Magic 15 ml PO QIDP PRN oral pain, 07/12/23 Rx Mouthwash;300mL [place]] irritation 10 days ##0 cefepime 2 gram solution for 2 g IV Q12H 9 days #17 ea 07/12/23 Rx injection ipratropium 0.5 mg-albuterol 3 mg 3 ml inhalation Q6RT #0 mL 07/12/23 Rx (2.5 mg base)/3 mL nebulization soln pantoprazole 40 mg tablet,delayed 40 mg PO HS #0 tabs 07/12/23 Rx release New Prescriptions to Start Prescriptions: Sunday Avalos Magic Mouthwash [Magic Mouthwash;300ml [place]] Sunday King Allergies Allergy/AdvReac Type Severity Reaction Status Date / Time erythromycin base Allergy Unknown NA-NAUSEA/V Verified 07/06/23 13:24 [ERYTHROMYCIN BASE] OMITING Discharge Plan Disposition Patient Disposition: er SNF Condition: Fair Discharge Order Discharge Orders: Discharge Order (Routine); Ordered 07/12/23 Ordered By: Sunday King Follow up Plan Follow up with: Bryan Ramirez MD [Physician] - Enter time for follow up Prescriptions/Medication Reconciliation: New cefepime 2 gram Recon Soln 2 g IV Q12H 9 Days Qty: 17 0RF Rx Instructions: Due at 9 AM and 9 PM. Last dose scheduled for evening of 4/18. Okay to remove PICC line after completion of antibiotic course. pantoprazole 40 mg Tablet,Delayed Release (Dr/Ec) 40 mg PO HS Qty: 0 0RF ipratropium-albuterol 0.5 mg-3 mg(2.5 mg base)/3 mL Solution For Nebulization 3 ml inhalation Q6RT Qty: 0 0RF Magic Mouthwash [Magic Mouthwash;300ml [place]] 15 ml PO QIDP PRN (Reason: oral pain, irritation) 10 Days Qty: 0 0RF Continued folic acid 1 mg tablet 1 mg PO DAILY Patient Comments: TAKE ONE TABLET BY MOUTH DAILY AT 9 AM aspirin 81 mg tablet,delayed release (DR/EC) 81 mg PO DAILY bisoprolol fumarate 5 mg tablet 5 mg PO DAILY Trelegy Ellipta 100-62.5-25 mcg blister with device 1 inh INHALATION DAILY amlodipine 10 MG tablet 10 mg PO DAILY albuterol sulfate 8.5 GM HFA aerosol inhaler 1 - 2 puffs IH Q4HP PRN (Reason: Shortness Of Breath Or Wheezing) escitalopram oxalate 20 MG tablet 20 mg PO DAILY lisinopril-hydrochlorothiazide 20-12.5 mg tablet 1 tab PO DAILY Patient Comments: TAKE ONE TABLET BY MOUTH DAILY AT 9 AM pantoprazole 40 mg tablet,delayed release (DR/EC) 40 mg PO DAILY Patient Comments: TAKE ONE TABLET BY MOUTH DAILY AT 9 AM furosemide 20 mg tablet 20 mg PO MOWE Patient Comments: TAKE ONE TABLET BY MOUTH ONCE ON MONDAY, MONDAY, AND MONDAY (VIAL) rosuvastatin 10 mg tablet 10 mg PO PM Patient Comments: TAKE ONE TABLET BY MOUTH DAILY AT 5 PM Eliquis 5 mg Tablet 5 mg PO BID Discontinued doxycycline monohydrate 100 mg capsule 100 mg PO DAILY Patient Comments: TAKE ONE TABLET BY MOUTH DAILY AT 9 AM FOR PREVENTION OF LUNG INFECTION Problem Reconciliation Problems Reviewed?: Yes Patient Discharge Instructions ACTIVITY: Continue current activity DIET: continue same diet Patient Instructions: Two Gram Sodium Diet, DI for Pneumonia -- Adult, Peripherally Inserted Central Catheter Infections, DI for Sepsis -- Adult, 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
[2023-07-12] MEDS: APIXABAN 5MG TABLET 5 MG PO (09:21)
[2023-07-12] MEDS: CITALOPRAM 40MG TABLET 40 MG PO (09:21)
[2023-07-12] MEDS: FOLIC ACID 1MG TABLET 1 MG PO (09:21)
[2023-07-12] MEDS: FUROSEMIDE 20MG TABLET 20 MG PO (09:21)
[2023-07-12] MEDS: ASPIRIN EC 81MG TABLET 81 MG PO (09:21)
[2023-07-12] MEDS: BISOPROLOL 5MG TABLET 5 MG PO (09:21)
[2023-07-12] MEDS: AMLODIPINE 10MG TABLET 10 MG PO (09:21)
--- NOTE | 2023-07-12 09:39 | EXP.PULM.PN ---
Subjective *Date: 07/12/23 *Time: 13:20 Interval history: No acute respiratory events overnight. Patient is any new respiratory complaints. Pulmonology Exam Inpatient Vital signs and Labs for Last 24 Hours: Temp Pulse Resp BP Pulse Ox O2 Del Method O2 Flow Rate 98.0 F 83 20 103/61 L 95 Nasal Cannula 4 07/12/23 07:47 07/12/23 07:47 07/12/23 07:47 07/12/23 07:47 07/12/23 07:47 07/12/23 07:47 07/12/23 07:47 FiO2 45 07/10/23 06:20 Laboratory Results - last 24 hr 07/12/23 04:50: WBC 8.6, RBC 3.63 L, Hgb 11.6 L, Hct 38.2 L, MCV 105.2 H, MCH 32.0 H, MCHC 30.4 L, RDW 14.9, Plt Count 318, MPV 9.0, Neut % (Auto) 80.8 H, Lymph % (Auto) 13.4, [place] % (Auto) 4.8, Eos % (Auto) 0.8, Baso % (Auto) 0.3, Neut # (Auto) 6.9, Lymph # (Auto) 1.2, [place] # (Auto) 0.4, Eos # (Auto) 0.1, Baso # (Auto) 0.0, Sodium 136, Potassium 3.8, Chloride 103, Carbon Dioxide 36 H, Anion Gap 0.8 L, BUN 23 H, Creatinine 0.70, Estimated Creat Clear 71, Estimated GFR 112, Est GFR ( Amer) 136, Glucose 128 H D, Calcium 7.6 L, Magnesium 1.8 D, Total Bilirubin 0.7, AST 52, ALT 51, Alkaline Phosphatase 168 H, Total Protein 5.1 L, Albumin 2.2 L, Globulin 2.9, Albumin/Globulin Ratio 0.8 L Temp Pulse Resp BP Pulse Ox O2 Del Method O2 Flow Rate 97.1 F L 97 H 20 94/68 L 94 L Nasal Cannula 3 07/07/23 08:00 07/07/23 08:00 07/07/23 08:00 07/07/23 08:00 07/07/23 08:00 07/07/23 08:00 07/07/23 08:00 FiO2 45 07/07/23 06:08 Laboratory Results - last 24 hr 07/06/23 13:09: WBC 21.4 H*, RBC 5.24, Hgb 16.7, Hct 55.9 H, MCV 106.7 H, MCH 31.8 H, MCHC 29.8 L, RDW 14.4, Plt Count 317, MPV 8.9, Neut % (Auto) 91.8 H, Lymph % (Auto) 4.4 L, [place] % (Auto) 2.1, Eos % (Auto) 0.3, Baso % (Auto) 1.5, Neut # (Auto) 19.6 H, Lymph # (Auto) 0.9, [place] # (Auto) 0.4, Eos # (Auto) 0.1, Baso # (Auto) 0.3 H, Total Counted 100, Neutrophils % (Manual) 94 H, Lymphocytes % (Manual) 5 L, Monocytes % (Manual) 1 L, Platelet Estimate Normal, RBC Morphology Not Reportable, Macrocytosis 1+, Stomatocytes 1+ 07/06/23 13:17: VBG pH 7.26 L, VBG pCO2 60.3 H, VBG pO2 34.0, VBG HCO3 26.7, VBG Total CO2 28.5 H, VBG O2 Saturation 50.4, VBG Base Excess -0.3, VBG Lactic Acid 5.3 H 07/06/23 13:18: Chlamy pneumoniae PCR TNP, Adenovirus (PCR) Not detected, B. pertussis DNA (PCR) TNP, Coronavirus OC43 (PCR) Not detected, Coronavirus HKU1 (PCR) Not detected, Coronavirus 229E (PCR) Not detected, SARS-CoV-2 (PCR) Not detected, Coronavirus NL63 (PCR) Not detected, Human Metapneumovir PCR Not detected, Influenza A (H1) PCR Not detected, Influ A (H1N1/09) PCR Not detected, Influenza A (H3) PCR Not detected, Influenza Type A (PCR) Not detected, Influenza Type B (PCR) Not detected, M. pneumoniae (PCR) TNP, Parainfluenza 1 (PCR) Not detected, Parainfluenza 2 (PCR) Not detected, Parainfluenza 3 (PCR) Not detected, Parainfluenza 4 (PCR) Not detected, RSV (PCR) Not detected, Entero/Rhino (PCR) Not detected 07/06/23 13:25: Specimen Source Left radial, O2 % 100%, ABG pH 7.31 L, ABG pCO2 47.8 H, ABG pO2 67.7 L, ABG HCO3 23.3, ABG Total CO2 24.7, ABG O2 Saturation 90, ABG Base Excess -3.1 L, Sukumar Test Acceptable 07/06/23 13:26: Urine Color Yellow, Urine Appearance Clear, Urine pH 6.0, Ur Specific [place] 1.025, Urine Protein 1+, Urine Glucose (UA) Negative, Urine Ketones Negative, Urine Blood Trace-i, Urine Nitrate Negative, Urine Bilirubin Negative, Urine Urobilinogen 1.0, Ur Leukocyte Esterase Negative, Urine RBC None, Urine WBC Occasional, Ur Squamous Epith Cells None, Urine Bacteria None 07/06/23 13:45: Sodium 132 L, Potassium 3.4 L, Chloride 97 L, Carbon Dioxide 24, Anion Gap 14.4, BUN 60 H, Creatinine 1.40 H, Estimated Creat Clear 50, Estimated GFR 51 L, Est GFR ( Amer) 61, Glucose 122 H, Calcium 8.3 L, Total Bilirubin 1.3, AST 83 H, ALT 40, Alkaline Phosphatase 166 H, Total Creatine Kinase 28 L, Troponin I 0.42 H, Total Protein 6.2 L, Albumin 2.7 L, Globulin 3.5 H, Albumin/Globulin Ratio 0.8 L 07/06/23 17:30: Lactate 7.9 H, Troponin I 0.30 H, Procalcitonin 5.98 H 07/06/23 18:30: Group A Strep Rapid Negative 07/06/23 19:40: Lactate 2.9 H, Troponin I 0.38 H 07/06/23 23:20: Troponin I 0.39 H 07/07/23 05:25: WBC 13.9 H D, RBC 4.16 L, Hgb 13.5 L D, Hct 44.1, MCV 106.0 H, MCH 32.4 H, MCHC 30.6 L, RDW 14.6, Plt Count 272, MPV 9.6, Neut % (Auto) 94.3 H, Lymph % (Auto) 3.3 L, [place] % (Auto) 1.6 L, Eos % (Auto) 0.1, Baso % (Auto) 0.8, Neut # (Auto) 13.1 H, Lymph # (Auto) 0.5 L, [place] # (Auto) 0.2, Eos # (Auto) 0.0, Baso # (Auto) 0.1, Total Counted 100, Neutrophils % (Manual) 91 H, Band Neutrophils % 3.0, Lymphocytes % (Manual) 2 L, Monocytes % (Manual) 4, Platelet Estimate Normal, Poikilocytosis 1+, Basophilic Stippling 1+, Anisocytosis 1+, Macrocytosis 1+, Target Cells 1+, Sodium 131 L, Potassium 3.3 L, Chloride 97 L, Carbon Dioxide 28, Anion Gap 9.3, BUN 66 H, Creatinine 1.50 H, Estimated Creat Clear 46, Estimated GFR 47 L, Est GFR ( Amer) 56 L, Glucose 114 H, Calcium 8.2 L, Total Bilirubin 0.6, AST 77 H, ALT 32, Alkaline Phosphatase 140 H, Total Protein 5.5 L, Albumin 2.4 L D, Globulin 3.1, Albumin/Globulin Ratio 0.8 L I & O for Labs for Last 24 Hours: Intake & Output 07/09/23 07/10/23 07/11/23 07/12/23 23:59 23:59 23:59 23:59 Intake Total 720 / 1200 1440 / 1440 1160 / 1160 240 / 240 Output Total 1860 / 2785 2125 / 2125 1989 120 / 120 Balance -1140 / -1585 -685 / -685 -830 / -830 120 / 120 Weight 160 lb 5 oz 160 lb 5.017 oz 153 lb 154 lb 6.4 oz Intake & Output 07/04/23 07/05/23 07/06/23 07/07/23 23:59 23:59 23:59 23:59 Intake Total 2330 / 2330 300 / 300 Output Total 670 / 670 Balance 2330 / 2330 -370 / -370 Weight 149 lb 150 lb 4.8 oz Microbiology Reports for the Last 24 Hours: Microbiology 07/07/23 10:27 Sputum - Expectorated Sputum Gram Stain - Final 07/07/23 10:27 Sputum - Expectorated Sputum Sputum Culture - Final 07/06/23 13:09 Blood Blood Culture - Preliminary Constitutional: Present moderate distress Head: Present normocephalic and atraumatic ENT: Present normal exam, normal oropharynx and mucous membranes moist Neck: Present normal inspection and full ROM Respiratory: Present respiratory distress, rhonchi and diminished air movement; Absent wheezes or able to speak in complete sentences Cardiac: Present Irregularly Regular, S1/S2, Tachycardia and radial pulses present GI: Present soft and distention; Absent tenderness or guarding Skin: Present intact; Absent cyanosis or jaundice Neuro: Present alert, awake and oriented x 3 Extremities: Present normal inspection; Absent clubbing or cyanosis Psychiatric: Present normal affect and cooperative Assessment and Plan *Assessment and plan (1) Acute on chronic hypoxic respiratory failure: Status: Acute Category: Medical Code(s): J96.21 - Acute and chronic respiratory failure with hypoxia (2) Healthcare-associated pneumonia: Status: Acute Category: Medical Code(s): J18.9 - Pneumonia, unspecified organism (3) Necrotizing pneumonia: Status: Acute Category: Medical Code(s): J85.0 - Gangrene and necrosis of lung Plan Mr. Flores is a 67-year-old female greater than 30 PPD, COPD multiple hospital admissions for respiratory distress and hypercarbic respiratory failure, most recent admission May 2023 during which patient was managed for COPD exacerbation along with levofloxacin for a 10-day course for pneumonia presented to the hospital again today with worsening respiratory distress. Admits worsening respiratory status for 7 to 10 days prior to hospital admission. CT upon admission showed significant right lower lobe necrotizing pneumonia which was not present on his CT from May 2023. Neutrophilic leukocytosis. Admission patient also noted to have hypercarbic respiratory failure venous blood gas that improved on arterial blood gas yesterday. Complaints of respiratory viral PCR panel negative. on initial examination severe respiratory distress. Needed needing 3 L nasal cannula for supplementation saturating 90-95. Rhonchorous breath sounds on auscultation. No significant wheezing noted. Hemodynamically stable. Holding his home blood pressure medications. Will closely monitor. Nasal MRSA PCR negative. Chest x-ray 07/10/2023 continue to show dense right lower lobe consolidative changes, x-ray from 07/11/2023 slight improvement. Interval update: No acute respiratory events overnight. Stable oxygen requirements continued to be needing 3 to 4 L to maintain O2 saturation of 90% and above. Plan: Aggressive PT OT Out of bed to chair. Continue cefepime to complete a total of 14 day course. F/U Repeat sputum cultures with induction, sputum cultures from admission no growth. Flutter valve 3-4 times a day Continue O2 supplementation to maintain O2 saturation goal of 90 to 95%. DuoNebs every 6 hours scheduled along with Pulmicort every 12 scheduled # Thank you for involving pulmonary in this patient care. Will continue to follow. Will follow the patient in pulmonary clinic 1 to 2 weeks post discharge with chest x-ray PA lateral prior to clinic visit
--- NOTE | 2023-07-12 11:05 | PC.NURSE ---
Report called to [facility] at [facility]. EMS notified.
[2023-07-12 11:10] VITALS: PULSE 77; PULSE 78
[2023-07-12 11:27] VITALS: BP 105/67; PULSE 75; RESP 18; TEMP 36.9; O2SAT 93
[2023-07-12] MEDS: MAGNESIUM SULFATE IN WATER 2 GM/50 ML PIGGYBACK IV (11:29)
== END 2023-07-12 14:03 | DRG 871 ==
LOC: ER 15:07 → 2ND 16:07
PROVIDERS: Emergency Medicine; Internal Medicine Adolescent Medicine; Internal Medicine Pulmonary Disease; Admitting Provider Internal Medicine; Emergency Provider Emergency Medicine; Visit Provider Internal Medicine
DX: A41.9 Sepsis, unspecified organism (principal); I21.A1 Myocardial infarction type 2; J96.01 Acute respiratory failure with hypoxia; J85.0 Gangrene and necrosis of lung; J18.9 Pneumonia, unspecified organism; N17.9 Acute kidney failure, unspecified; I50.32 Chronic diastolic (congestive) heart failure; J44.0 Chronic obstructive pulmonary disease with (acute) lower respiratory infection; R65.20 Severe sepsis without septic shock; I25.10 Atherosclerotic heart disease of native coronary artery without angina pectoris; E78.5 Hyperlipidemia, unspecified; E66.9 Obesity, unspecified; Z68.22 Body mass index [BMI] 22.0-22.9, adult; Z86.711 Personal history of pulmonary embolism; Z79.01 Long term (current) use of anticoagulants; Y95 Nosocomial condition; Z99.81 Dependence on supplemental oxygen; E83.42 Hypomagnesemia
CPT/HCPCS: 36569; 36410; 36415; 71045; 71275; 80053; 81001; 82550; 82803; 83605; 83735; 84145; 84484; 85007; 85025; 87040; 87070; 87081; 87086; 87205; 87430; 87632; 87635; 93005; 94640; 94660; 94667; 94668; 94761; 97110; 97163; 97165; 97530; 99291; C1751; J0131; J0696; J1956; J3475; Q9967

== ENCOUNTER 2023-08-01 14:01 | Outpatient (CLI) | payer MEDICARE, SELFPAY ==
--- NOTE | 2023-08-01 14:08 | XR_ITS ---
FINAL REPORT CLINICAL HISTORY: PNM COMPARISON: 07/11/2023 FINDINGS: Increasing right lower lobe density is likely worsening consolidation. There is a small right pleural effusion. Left-sided PICC line has been removed. The left lung is clear. The mediastinum has a normal appearance. The cardiac silhouette is unremarkable. IMPRESSION: Mild worsening right lower lobe pneumonia with small right pleural effusion. Reviewed, Interpreted and Dictated by Nikita Rodriges MD Transcribed by Yuli Godoy Authenticated and [facility]
== END 2023-08-01 23:59 | disposition home or self-care (01) ==
LOC: RAD 14:02
PROVIDERS: PCP Nurse Practitioner Family; Visit Provider Internal Medicine Pulmonary Disease
DX: R06.02 Shortness of breath (principal)
CPT/HCPCS: 71046

== ENCOUNTER 2023-08-01 15:17 | Emergency (ER) | payer MEDICARE, SELFPAY ==
[2023-08-01 15:18] VITALS: BP 72/47; PULSE 72; RESP 20; TEMP 36.6; O2SAT 93; BMI 20.6
--- NOTE | 2023-08-01 15:30 | ECG_ITS ---
APPROVED REPORT Exam: Resting ECG HR:71 bpm ECG Measurements Heart Rate 71 AXES WY 142 P 52 QRSd 86 QRS 81 QT 462 T 81 QTc 484 Conclusion SINUS RHYTHM WITH OCCASIONAL VENTRICULAR PREMATURE COMPLEXES WITH OCCASIONAL SUPRAVENTRICULAR PREMATURE COMPLEXES PROLONGED QT INTERVAL ABNORMAL ECG UNCONFIRMED REPORT Electronically signed by : Sunday Sanchez, 08/01/2023 23:13:43
--- NOTE | 2023-08-01 15:35 | ED_ITS ---
Discharge Plan Disposition Patient Disposition: Home, Self-Care Chief Complaint: Weakness Prescriptions Prescriptions: No Action folic acid 1 mg tablet 1 mg PO DAILY Patient Comments: TAKE ONE TABLET BY MOUTH DAILY AT 9 AM aspirin 81 mg tablet,delayed release (DR/EC) 81 mg PO DAILY bisoprolol fumarate 5 mg tablet 5 mg PO DAILY Sudha Ellipta 100-62.5-25 mcg blister with device 1 inh INHALATION DAILY amlodipine 10 MG tablet 10 mg PO DAILY albuterol sulfate 8.5 GM HFA aerosol inhaler 1 - 2 puffs inhalation Q4HP PRN (Reason: Shortness Of Breath Or Wheezing) escitalopram oxalate 20 MG tablet 20 mg PO DAILY lisinopril-hydrochlorothiazide 20-12.5 mg tablet 1 tab PO DAILY Patient Comments: TAKE ONE TABLET BY MOUTH DAILY AT 9 AM pantoprazole 40 mg tablet,delayed release (DR/EC) 40 mg PO DAILY Patient Comments: TAKE ONE TABLET BY MOUTH DAILY AT 9 AM furosemide 20 mg tablet 20 mg PO Patient Comments: TAKE ONE TABLET BY MOUTH ONCE ON MONDAY, MONDAY, AND MONDAY (VIAL) rosuvastatin 10 mg tablet 10 mg PO PM Patient Comments: TAKE ONE TABLET BY MOUTH DAILY AT 5 PM Eliquis 5 mg Tablet 5 mg PO BID cefepime 2 gram Recon Soln 2 g IV Q12H 9 Days Qty: 17 0RF Rx Instructions: Due at 9 AM and 9 PM. Last dose scheduled for evening of 07/19. Okay to remove PICC line after completion of antibiotic course. pantoprazole 40 mg Tablet,Delayed Release (Dr/Ec) 40 mg PO HS Qty: 0 0RF ipratropium-albuterol 0.5 mg-3 mg(2.5 mg base)/3 mL Solution For Nebulization 3 ml inhalation Q6RT Qty: 0 0RF Magic Mouthwash [Magic Mouthwash;300ml Botttle] 15 ml PO QIDP PRN (Reason: oral pain, irritation) 10 Days Qty: 0 0RF Referrals Follow up/Referrals: Jana Armendariz [Primary Care Provider] - See instructions Activity Restrictions/Add. Instructions Additional Instructions/Restrictions: You had a mild acute kidney injury I recommend that you get your kidney function rechecked in the next 24 to 48 hours. Your hypotension was most likely secondary to being dehydrated. No other evidence of infection, sepsis, shock etc. Please return with any significant worsening of your symptoms. Clinical Impressions Clinical Impression: Hypotension, RUBENS (acute kidney injury), Acute dehydration Discharge ED Provider: Nelly Sanchez General Adult HPI General Chief complaint: Weakness Stated complaint: sent by James Ni- Low BP Time Seen by Provider: 08/01/23 15:19 History of Present Illness HPI narrative: Patient is a 67-year-old male presents today with hypotension. Patient was recently admitted in the hospital with right lower lobe pneumonia was discharged 2 weeks ago was in rehab facility until yesterday. Has been doing better clinically he states. He is asymptomatic at the moment other than feeling mildly lightheaded. No nausea vomiting no fevers or chills. States he is breathing more comfortably is on his home oxygen requirement. He went to Dr. Ramirez office and states he was feeling normal but had serial blood pressures that were 70/40. Therefore this physician called me and transferred the patient to the emergency department for the evaluation and management. Patient has no new or different symptoms other than what is stated above. Additionally had a chest x-ray that was done today which showed improvement in his airspace disease. Related Data Home Medications Medication Instructions Recorded Confirmed albuterol sulfate 90 mcg/actuation 1 - 2 puffs inhalation Q4HP PRN 03/24/20 08/01/23 aerosol inhaler Shortness Of Breath Or Wheezing amlodipine 10 mg tablet 10 mg PO DAILY 03/24/20 08/01/23 escitalopram oxalate 20 mg tablet 20 mg PO DAILY 03/24/20 08/01/23 aspirin 81 mg tablet,delayed 81 mg PO DAILY 05/22/23 08/01/23 release bisoprolol fumarate 5 mg tablet 5 mg PO DAILY 05/22/23 08/01/23 fluticasone fur. 100 mcg-umeclid 1 inh inhalation DAILY 05/22/23 08/01/23 62.5 mcg-vilant 25 mcg inhalat.powder (Trelegy Ellipta) folic acid 1 mg tablet 1 mg PO DAILY 05/22/23 08/01/23 apixaban 5 mg tablet (Eliquis) 5 mg PO BID 07/07/23 08/01/23 furosemide 20 mg tablet 20 mg PO MOWEFR 07/07/23 08/01/23 lisinopril 20 1 tab PO DAILY 07/07/23 08/01/23 mg-hydrochlorothiazide 12.5 mg tablet pantoprazole 40 mg tablet,delayed 40 mg PO DAILY 07/07/23 08/01/23 release rosuvastatin 10 mg tablet 10 mg PO PM 07/07/23 08/01/23 Previous Rx's Medication Instructions Recorded Magic Mouthwash [Magic 15 ml PO QIDP PRN oral pain, 07/12/23 Mouthwash;300mL Botttle] irritation 10 days ##0 cefepime 2 gram solution for 2 g IV Q12H 9 days #17 ea 07/12/23 injection ipratropium 0.5 mg-albuterol 3 mg 3 ml inhalation Q6RT #0 mL 07/12/23 (2.5 mg base)/3 mL nebulization soln pantoprazole 40 mg tablet,delayed 40 mg PO HS #0 tabs 07/12/23 release Allergies Allergy/AdvReac Type Severity Reaction Status Date / Time erythromycin base Allergy Unknown NA-NAUSEA/V Verified 08/01/23 13:37 [ERYTHROMYCIN BASE] OMITING PFSH PFSH Disclaimer: The information contained in this section may have been updated after the patient was seen, as this information can be updated by other users. Medical History (Updated 08/01/23 @ 17:11 by Nelly Sanchez MD) Bilateral pulmonary embolism COPD mixed type Pulmonary emphysema Smoking greater than 30 pack years Necrotizing pneumonia Healthcare-associated pneumonia Pulmonary embolism Acute respiratory failure with hypoxia and hypercarbia Cough CAD in [place] artery Hilar lymphadenopathy Nodule of right lung Shortness of Breath Atypical angina Coronary artery calcification seen on CAT scan Pneumonia CAP (community acquired pneumonia) Alcohol use disorder, severe, in early remission Tobacco dependence COPD (chronic obstructive pulmonary disease) Hyperlipidemia Hypertension Obesity (BMI 30-39.9) Surgical History History of colonoscopy Family History Mother Lung cancer Father COPD (chronic obstructive pulmonary disease) Social History (Updated 08/01/23 @ 13:38 by Jennifer Hamilton) Smoking Status: Current every day smoker tobacco type: cigarettes packs per day: 2 second hand exposure: No alcohol intake: current alcohol intake frequency: 0-2 drinks per day current occupational status: disabled Travel in the last 8 weeks: None household members: significant other caffeine: No ROS Obtained: Yes All systems reviewed & no additional complaints except as documented Physical Exam General General appearance: alert and in no apparent distress Respiratory Respiratory exam: Present normal lung sounds bilaterally and respiratory distress Cardiovascular Cardiovascular exam: Present regular rate and normal rhythm Neurological Exam Neurological exam: Present alert and oriented X3 Medical Decision Making Abdias Inquiry Pt receiving controlled substance: No Vital Signs: 08/01/23 15:18 08/01/23 16:00 08/01/23 16:30 Temperature 97.8 F Temperature Source Oral Pulse Rate 63 56 L Pulse Rate [Right Radial] 72 Respiratory Rate 20 18 15 Blood Pressure 80/50 L 95/57 L Blood Pressure [Right Arm] 72/47 L Blood Pressure Mean [Right Arm] 55 02 Sat by Pulse Oximetry 93 L 100 100 Oxygen Delivery Method Room Air Room Air Room Air Lab Data Lab results reviewed: Yes I reviewed the patient's lab results. Lab Results 08/01/23 15:48: WBC 8.0, RBC 3.34 L, Hgb 10.5 L, Hct 31.6 L, MCV 94.7 H, MCH 31.4 H, MCHC 33.1, RDW 15.2, Plt Count 288, MPV 8.1, Neut % (Auto) 68.1, Lymph % (Auto) 22.7, [place] % (Auto) 7.1, Eos % (Auto) 1.3, Baso % (Auto) 1.0, Neut # (Auto) 5.4, Lymph # (Auto) 1.8, [place] # (Auto) 0.6, Eos # (Auto) 0.1, Baso # (Auto) 0.1, Sodium 139, Potassium 3.9, Chloride 103, Carbon Dioxide 34 H, Anion Gap 5.9, BUN 28 H, Creatinine 1.30 H, Estimated Creat Clear 51, Estimated GFR 55 L, Est GFR ( Amer) 67, Glucose 104 H, Lactate 2.2 H, Calcium 8.1 L, Total Bilirubin 0.4, AST 40, ALT 30, Alkaline Phosphatase 139 H, Troponin I < 0.01, T otal Protein 6.4 D, Albumin 3.1 L, Globulin 3.3 H, Albumin/Globulin Ratio 0.9 L 08/01/23 15:48 08/01/23 15:48 Orders (Tests/Meds): ED MEDICATIONS Discontinued Medications Generic Name Dose Route Start Last Admin Trade Name Freq PRN Reason Stop Dose Admin Lactated Ringer's 1,000 mls @ 999 mls/hr 08/01/23 15:30 08/01/23 15:56 Lactated Ringer's 1000 Ml Bag IV 08/01/23 16:30 999 mls/hr .Q1H1M OLIVER Administration ORDERS Category Date Time Status CBC w/Auto Diff [Complete Blood Count Auto Diff] Stat Lab 08/01/23 15:48 Completed CMP [Comprehensive Metabolic Panel] Stat Lab 08/01/23 15:48 Completed Lactic Acid Stat Lab 08/01/23 15:48 Completed Trop I [Troponin I] Stat Lab 08/01/23 15:48 Completed Troponin I Q3H Lab 08/01/23 18:30 Ordered Troponin I Q3H Lab 08/01/23 21:30 Ordered UA [Urinalysis and Microscopic] Stat Lab 08/01/23 16:40 Received Blood Culture Stat Micro 08/01/23 16:14 Received ECG Data Tracing #1: I reviewed this ECG and interpreted as documented below: Very poor baseline ventricular to 71 sinus rhythm no obvious ischemic changes normal axis difficult to interpret conduction abnormality Medical Decision Narrative: Patient is a well-appearing 67-year-old male presents today with relatively asymptomatic hypotension. He is mildly lightheaded. Does have some poor skin turgor but otherwise his exam is completely normal. He is breathing comfortably on his home oxygen I personally interpreted the x-ray done today which shows persistent right lower lobe consolidation but significantly improved from his recent hospitalization. I will give him IV fluids check basic blood work and a urine lactic acid etc. I think it is unlikely that this patient is septic certainly possible will reassess shortly after his IV fluid administration. Reassessment 5:12 PM labs demonstrate a very mild acute kidney injury with a creatinine of 1.3 baseline of 0.7 looking back in his labs in the past he has been fluctuating between mid ones and less than 1. However most recently he was 0.7 so this is objectively an acute kidney injury. He does have a significant elevation in his BUN/creatinine ratio this is consistent with prerenal azotemia most likely dehydration given his clinical appearance. His lactate is 2.2 which is around where it was upon being discharged recently. After 1 L of IV fluids his blood pressure is 100/60 which is where he was upon being discharged recently. He is completely asymptomatic at this point feels much better after IV fluids. No clinical evidence of an ongoing or worsening infection. He was unable to provide us a urine but he has no urinary tract infection symptoms. Blood cultures were sent in the event that he is bacteremic we will call him back. He has been advised to follow-up with primary care doctor tomorrow or the next day for recheck of his BMP which he understands. Patient was discharged in stable condition. Critical Care Critical Care Time Critical Care Time: Yes Attestation: On 08/01/23, the high probability of a clinically significant, sudden or life threatening deterioration of the following system(s) required my full and direct attention, intervention and personal management. The time I documented below is in addition to time spent performing reported procedures but includes the following listed in this critical care notation. Total Time Total Critical Care Time: 35
[2023-08-01] MEDS: LACTATED RINGERS 1000ML 1,000 ML 999 ML IV (15:56)
--- NOTE | 2023-08-01 15:57 | PC.NURSE ---
Called LAB to have them collect second set of blood cx
[2023-08-01 16:00] VITALS: BP 80/50; PULSE 63; RESP 18; O2SAT 100
[2023-08-01 16:05] LABS: Basophils # 0.1 K/mm3 (0-0.2); Eosinophils # 0.1 K/mm3 (0.0-0.4); Eosinophils % 1.3 % (0.1-12.0); Hematocrit 31.6 % (42.0-52.0); Hemoglobin 10.5 g/dL (14.1-18.0); Lymphocytes # 1.8 K/mm3 (0.7-4.5); Lymphocytes % 22.7 % (10-50); Mean Corpuscular HGB Conc 33.1 g/dL (31.8-35.4); Mean Corpuscular Hemoglobin 31.4 pg (27.0-31.2); Mean Corpuscular Volume 94.7 fl (80-94); Mean Platelet Volume 8.1 fl (7.4-10.4); Monocytes # 0.6 K/mm3 (0.1-1.0); Monocytes % 7.1 % (1.7-9.3); Neutrophils # 5.4 K/mm3 (1.8-7.8); Neutrophils % 68.1 % (37.0-80.0); Platelet Count 288 K/mm3 (142-424); Red Blood Count 3.34 M/mm3 (4.60-6.20); Red Cell Distribution Width 15.2 % (11.5-17.5)
--- NOTE | 2023-08-01 16:09 | PC.NURSE ---
LAB at to drawn blood cx
[2023-08-01 16:20] LABS: Chloride 103 mmol/L (98-107)
[2023-08-01 16:21] LABS: Potassium 3.9 mmoL/L (3.5-5.1); Sodium 139 mmol/L (136-145)
[2023-08-01 16:23] LABS: Alanine Aminotransferase 30 U/L (12-78); Alkaline Phosphatase 139 U/L (38-126); Anion Gap 5.9 mEq/L (5-15); Aspartate Amino Transferase 40 U/L (17-59); Bilirubin,Total 0.4 mg/dl (0.2-1.3); Blood Urea Nitrogen 28 mg/dl (9-20); Carbon Dioxide 34 mmol/L (22.0-30.0); Creatinine Clearance Estimated 51 mL/min (50-200); Estimated Glomerular Filt Rate 55 ml/min (>60); GFR (African American) 67 ML/MIN (>60)
[2023-08-01 16:24] LABS: Albumin Level 3.1 g/dl (3.5-5.0); Albumin/Globulin Ratio 0.9 (1.1-1.8); Calcium 8.1 mg/dl (8.4-10.2); Globulin 3.3 g/dL (1.3-3.2); Glucose 104 mg/dl (74-100); Total Protein,Serum 6.4 g/dl (6.3-8.2)
[2023-08-01 16:25] LABS: Lactic Acid 2.2 mmol/L (0.7-2.1)
[2023-08-01 16:30] VITALS: BP 95/57; PULSE 56; RESP 15; O2SAT 100
[2023-08-01 16:45] LABS: Microscopic, Urine URINE MICROSCOPIC (MICROSCOPIC)
[2023-08-01 16:58] LABS: Troponin I < 0.01 ng/ml (0.00-0.034)
--- NOTE | 2023-08-01 17:02 | PC.NURSE ---
Dr. Sanchez at to reevaluate pt
[2023-08-01 17:04] LABS: Appearance,Urine CLEAR (Clear); Blood, Urine Negative (Negative); Color,Urine YELLOW (Yellow); Glucose,Urine (UA) Negative (Negative); Ketones,Urine TRACE (Negative); Leukocyte Esterase,Urine Negative (Negative); Nitrate,Urine Negative (Negative); PH,Urine 5.5 (5.0-8.5); Protein,Urine TRACE (Negative); Specific Gravity, Urine >= 1.030 (1.005-1.030)
[2023-08-01 17:23] VITALS: BP 101/64; PULSE 68; RESP 18; TEMP 36.7; O2SAT 100
[2023-08-01 17:35] LABS: Bacteria,Urine Trace /lpf; Bilirubin,Urine 1+ (Negative)
[2023-08-01 19:58] LABS: Reflex Lactic Add Lactic Reflex
== END 2023-08-01 17:24 | disposition home or self-care (01) ==
PROVIDERS: Emergency Provider Student in an Organized Health Care Education/Training Program; PCP Nurse Practitioner Family
DX: E86.0 Dehydration (principal); I95.9 Hypotension, unspecified; R94.31 Abnormal electrocardiogram [ECG] [EKG]; N17.9 Acute kidney failure, unspecified; F17.210 Nicotine dependence, cigarettes, uncomplicated; J44.9 Chronic obstructive pulmonary disease, unspecified; I11.9 Hypertensive heart disease without heart failure; I25.119 Atherosclerotic heart disease of native coronary artery with unspecified angina pectoris; E78.5 Hyperlipidemia, unspecified; Z86.711 Personal history of pulmonary embolism; Z79.01 Long term (current) use of anticoagulants
CPT/HCPCS: 36415; 71046; 80053; 81001; 83605; 84484; 85025; 87040; 93005; 96360; 99285

== ENCOUNTER 2024-01-15 14:47 | Inpatient (IN) | payer MEDICARE, SELFPAY ==
[2024-01-15] VITALS (21 sets, daily range): BP systolic 93–129; BP diastolic 61–90; PULSE 59–163; RESP 16–33; TEMP 36.3–36.7; O2SAT 85–98; BMI 22.9
--- NOTE | 2024-01-15 14:51 | ECG_ITS ---
APPROVED REPORT Exam: Resting ECG HR:85 bpm ECG Measurements Heart Rate 85 AXES QRSd 80 QRS 74 QT 349 T 66 QTc 391 Conclusion SUPRAVENTRICULAR RHYTHM ABNORMAL RHYTHM ECG UNCONFIRMED REPORT Electronically signed by : Sunday Sanchez, 01/16/2024 14:53:29
--- NOTE | 2024-01-15 14:51 | ED_ITS ---
<Statement entered by Lyla Zelaya DO - 01/15/24 16:39> I was consulted by the ZUES, and we discussed the complexity of the problems being addressed. I approved the treatment and management plan for this patient's care in the emergency department, thus performing a substantive portion of the medical decision making. Lyla Zelaya DO Discharge Plan Disposition Patient Disposition: Admitted Condition: Critical Prescriptions Prescriptions: No Action folic acid 1 mg tablet 1 mg PO DAILY Patient Comments: TAKE ONE TABLET BY MOUTH DAILY AT 9 AM aspirin 81 mg tablet,delayed release (DR/EC) 81 mg PO DAILY bisoprolol fumarate 5 mg tablet 5 mg PO DAILY Trelegy Ellipta 100-62.5-25 mcg blister with device 1 inh INHALATION DAILY amlodipine 10 MG tablet 10 mg PO DAILY albuterol sulfate 8.5 GM HFA aerosol inhaler 1 - 2 puffs inhalation Q4HP PRN (Reason: Shortness Of Breath Or Wheezing) escitalopram oxalate 20 MG tablet 20 mg PO DAILY lisinopril-hydrochlorothiazide 20-12.5 mg tablet 1 tab PO DAILY Patient Comments: TAKE ONE TABLET BY MOUTH DAILY AT 9 AM pantoprazole 40 mg tablet,delayed release (DR/EC) 40 mg PO DAILY Patient Comments: TAKE ONE TABLET BY MOUTH DAILY AT 9 AM furosemide 20 mg tablet 20 mg PO MOWE Patient Comments: TAKE ONE TABLET BY MOUTH ONCE ON MONDAY, MONDAY, AND MONDAY (VIAL) rosuvastatin 10 mg tablet 10 mg PO PM Patient Comments: TAKE ONE TABLET BY MOUTH DAILY AT 5 PM Eliquis 5 mg Tablet 5 mg PO BID cefepime 2 gram Recon Soln 2 g IV Q12H 9 Days Qty: 17 0RF Rx Instructions: Due at 9 AM and 9 PM. Last dose scheduled for evening of 07/19. Okay to remove PICC line after completion of antibiotic course. pantoprazole 40 mg Tablet,Delayed Release (Dr/Ec) 40 mg PO HS Qty: 0 0RF ipratropium-albuterol 0.5 mg-3 mg(2.5 mg base)/3 mL Solution For Nebulization 3 ml inhalation Q6RT Qty: 0 0RF Magic Mouthwash [Magic Mouthwash;300ml Botttle] 15 ml PO QIDP PRN (Reason: oral pain, irritation) 10 Days Qty: 0 0RF Referrals Follow up/Referrals: Provider,Referral, MD [Primary Care Provider] - See instructions Clinical Impressions Clinical Impression: Acute on chronic respiratory failure with hypoxia and hypercapnia, Acute exacerbation of chronic obstructive pulmonary disease Print Language Print Language: Hebrew Discharge ED Provider: Lyla Zelaya General Adult HPI <SUMMER Wetzel - Last Filed: 01/15/24 16:30> General Chief complaint: Shortness of Breath/Dyspnea Stated complaint: soa Time Seen by Provider: 01/15/24 14:51 History of Present Illness HPI narrative: Patient presents for evaluation of shortness of breath. Patient has a longstanding history of oxygen dependent COPD, multiple episodes of pneumonia, coronary artery disease, history of hyperlipidemia hypertension history of alcohol abuse and smoking. He apparently saw his PCP last week was diagnosed with pneumonia and put on antibiotics and steroids. However he is not improved and has self titrated his home oxygen up to 5 L with no improvement. Patient reports compliance with all of his as needed and scheduled medications and treatments. On arrival EMS reported significant hypoxia and patient was only on 2 L. He denies any fever chills hemoptysis hematochezia melena nausea vomiting diarrhea. Related Data Home Medications ?Medication ?Instructions ?Recorded ?Confirmed albuterol sulfate 90 mcg/actuation 1 - 2 puffs inhalation Q4HP PRN 03/24/20 08/01/23 aerosol inhaler Shortness Of Breath Or Wheezing amlodipine 10 mg tablet 10 mg PO DAILY 03/24/20 08/01/23 escitalopram oxalate 20 mg tablet 20 mg PO DAILY 03/24/20 08/01/23 aspirin 81 mg tablet,delayed 81 mg PO DAILY 05/22/23 08/01/23 release bisoprolol fumarate 5 mg tablet 5 mg PO DAILY 05/22/23 08/01/23 fluticasone fur. 100 mcg-umeclid 1 inh inhalation DAILY 05/22/23 08/01/23 62.5 mcg-vilant 25 mcg inhalat.powder (Trelegy Ellipta) folic acid 1 mg tablet 1 mg PO DAILY 05/22/23 08/01/23 apixaban 5 mg tablet (Eliquis) 5 mg PO BID 07/07/23 08/01/23 furosemide 20 mg tablet 20 mg PO MOWEFR 07/07/23 08/01/23 lisinopril 20 1 tab PO DAILY 07/07/23 08/01/23 mg-hydrochlorothiazide 12.5 mg tablet pantoprazole 40 mg tablet,delayed 40 mg PO DAILY 07/07/23 08/01/23 release rosuvastatin 10 mg tablet 10 mg PO PM 07/07/23 08/01/23 Previous Rx's ?Medication ?Instructions ?Recorded Magic Mouthwash [Magic 15 ml PO QIDP PRN oral pain, 07/12/23 Mouthwash;300mL Botttle] irritation 10 days ##0 cefepime 2 gram solution for 2 g IV Q12H 9 days #17 ea 07/12/23 injection ipratropium 0.5 mg-albuterol 3 mg 3 ml inhalation Q6RT #0 mL 07/12/23 (2.5 mg base)/3 mL nebulization soln pantoprazole 40 mg tablet,delayed 40 mg PO HS #0 tabs 07/12/23 release Allergies Allergy/AdvReac Type Severity Reaction Status Date / Time erythromycin base Allergy Unknown NA-NAUSEA/V Verified 01/15/24 15:07 [ERYTHROMYCIN BASE] OMITING [facility] <SUMMER Wetzel - Last Filed: 01/15/24 16:30> [facility] Disclaimer: The information contained in this section may have been updated after the patient was seen, as this information can be updated by other users. Medical History (Updated 01/15/24 @ 16:01 by SUMMER Wetzel) Bilateral pulmonary embolism COPD mixed type Pulmonary emphysema Smoking greater than 30 pack years Necrotizing pneumonia Healthcare-associated pneumonia Pulmonary embolism Acute respiratory failure with hypoxia and hypercarbia Cough CAD in [place] artery Hilar lymphadenopathy Nodule of right lung Shortness of Breath Atypical angina Coronary artery calcification seen on CAT scan Pneumonia CAP (community acquired pneumonia) Alcohol use disorder, severe, in early remission Tobacco dependence COPD (chronic obstructive pulmonary disease) Hyperlipidemia Hypertension Obesity (BMI 30-39.9) Surgical History History of colonoscopy Family History Mother Lung cancer Father COPD (chronic obstructive pulmonary disease) Social History (Updated 08/01/23 @ 13:38 by Jennifer Hamilton) Smoking Status: Current every day smoker tobacco type: cigarettes packs per day: 2 second hand exposure: No alcohol intake: current alcohol intake frequency: 0-2 drinks per day current occupational status: disabled Travel in the last 8 weeks: None household members: significant other caffeine: No Other Medical History Have you received the Flu Vaccine for this season: No Have you received the Pneumonia Vaccine: No <SUMMER Wetzel - Last Filed: 01/15/24 16:30> ROS Obtained: Yes Systems reviewed as appropriate & no additional complaints except as documented Physical Exam <SUMMER Wetzel - Last Filed: 01/15/24 16:30> General General appearance: alert and in no apparent distress Respiratory Respiratory exam: Present wheezes (In all 4 calderon), accessory muscle use and prolonged expiratory phase Cardiovascular Cardiovascular exam: Present regular rate Neurological Exam Neurological exam: Present alert and oriented X3 Medical Decision Making <SUMMER Wetzel - Last Filed: 01/15/24 16:30> Medical Records Medical records reviewed: Yes I reviewed the patient's medical records. Screening: Per USPSTF and CDC recommendations, given the prevalence of disease in our region, it is our hospital?s policy to screen for HIV and viral Hepatitis for all patients aged 18 and over and those with ongoing risk factors. Abdias Inquiry Pt receiving controlled substance: No Vital Signs: 01/15/24 14:54 01/15/24 14:56 01/15/24 15:00 Temperature 97.7 F Temperature Source Oral Pulse Rate 87 82 Pulse Rate [Left] 90 Respiratory Rate 32 H 25 H 27 H Blood Pressure 112/86 107/77 L Blood Pressure [Right Arm] 112/86 Blood Pressure Mean [Right Arm] 94 Blood Pressure Source [Right Arm] Automatic Cuff Blood Pressure Position [Right Arm] Sitting 02 Sat by Pulse Oximetry 98 98 97 Oxygen Delivery Method BiPAP Nasal Cannula BiPAP 01/15/24 15:30 Temperature Temperature Source Pulse Rate 80 Pulse Rate [Left] Respiratory Rate 29 H Blood Pressure 111/74 Blood Pressure [Right Arm] Blood Pressure Mean [Right Arm] Blood Pressure Source [Right Arm] Blood Pressure Position [Right Arm] 02 Sat by Pulse Oximetry 97 Oxygen Delivery Method BiPAP Lab Data Lab results reviewed: Yes I reviewed the patient's lab results. Lab Results 01/15/24 14:50: WBC 6.8, RBC 5.75, Hgb 19.4 H, Hct 58.2 H, MCV 101.3 H, MCH 33.8 H, MCHC 33.4, RDW 14.7, Plt Count 232, MPV 7.3 L, Neut % (Auto) 74.5, Lymph % (Auto) 16.3, Elliott % (Auto) 7.7, Eos % (Auto) 0.5, Baso % (Auto) 0.9, Neut # (Auto) 5.1, Lymph # (Auto) 1.1, Elliott # (Auto) 0.5, Eos # (Auto) 0.0, Baso # (Auto) 0.1, PT 11.4, INR 1.02, D-Dimer < 0.25 01/15/24 14:57: VBG pH 7.26 L, VBG pCO2 71.5 H, VBG pO2 38.0, VBG HCO3 31.1 H, V BG Total CO2 33.3 H, VBG O2 Saturation 69.7, VBG Base Excess 4.0 H, VBG Lactic Acid 1.9 01/15/24 14:50 Orders (Tests/Meds): ED MEDICATIONS Generic Name Dose Route Start Last Admin Trade Name Freq PRN Reason Stop Dose Admin Levofloxacin/Dextrose 750 mg in 150 mls @ 100 mls/hr 01/15/24 16:10 01/15/24 16:16 Levofloxacin 750mg/150ml Premix IV 01/15/24 17:39 100 mls/hr ONCE ONE Administration Discontinued Medications Generic Name Dose Route Start Last Admin Trade Name Freq PRN Reason Stop Dose Admin Albuterol/Ipratropium 9 ml 01/15/24 14:55 01/15/24 15:02 Ipratropium/Albuterol 3 Ml Neb IH 01/15/24 14:56 9 ml ONCE ONE Administration Dexamethasone Sodium Phosphate 10 mg 01/15/24 14:55 01/15/24 15:02 Dexamethasone 4mg/Ml 5ml Mdv IV 01/15/24 14:56 10 mg ONCE ONE Administration ORDERS Category Date Time Status Chest XR -- portable [XR chest portable] Stat Exams 01/15/24 14:55 Taken BNP [NT Pro Brain Natriuretic Pep.] Stat Lab 01/15/24 14:50 Received CBC w/Auto Diff [Complete Blood Count Auto Diff] Stat Lab 01/15/24 14:50 Completed CMP [Comprehensive Metabolic Panel] Stat Lab 01/15/24 14:50 Received D-Dimer Stat Lab 01/15/24 14:50 Completed Full Resp Panel w/COVID ([facility]) Routine Lab 01/15/24 15:09 Received HIV (1&2) Antibody Rapid Stat Lab 01/15/24 14:50 Received Hep C Ab with Reflex to RNA Stat Lab 01/15/24 14:50 Received INR [Prothrombin Time INR] Stat Lab 01/15/24 14:50 Completed Magnesium Stat Lab 01/15/24 14:50 Received Procalcitonin Stat Lab 01/15/24 14:50 Received Trop I [Troponin I] Stat Lab 01/15/24 14:50 Received Troponin I Q3H Lab 01/15/24 18:00 Ordered Troponin I Q3H Lab 01/15/24 21:00 Ordered UA [Urinalysis and Microscopic] Stat Lab 01/15/24 14:57 Ordered Blood Culture Stat Micro 01/15/24 15:01 Received VBG [Venous Blood Gas] Stat RT 01/15/24 14:57 Completed Medical Decision Narrative: In summary patient is a 68-year-old male who presents to the emergency department for evaluation of dyspnea. Patient is normotensive with a heart rate of 87 respiratory rate however 32 requiring 6 L by nasal cannula to maintain a sat above 90% upon arrival, afebrile. Physical exam is remarkable for tachypnea with accessory muscle use, inspiratory and expiratory wheezes in all 4 calderon with diminished breath sounds at the bases, normal heart sounds no abdominal pain normal bowel sounds. Differential diagnosis includes COPD exacerbation versus viral bacterial respiratory tract infection etc. Initial workup will be conducted with hematologic labs chest x-ray VBG twelve-lead EKG. Initial interventions include Decadron and DuoNeb. Initial workup reviewed by me shows that patient has acute on chronic hypoxemic hypercapnic respiratory failure and acute exacerbation of COPD and my informal interpretation of his plain chest x- ray shows significant chronic disease with possibility of new left lower lobe infiltrate radiology read. Upon repeat evaluation patient placed on BiPAP which she has tolerated well. Given this I had interact discussion with hospital medicine regarding patient management he will be admitted for further evaluation and care <Lyla Zelaya, DO - Last Filed: 01/15/24 15:30> Vital Signs: 01/15/24 14:54 01/15/24 14:56 01/15/24 15:00 Temperature 97.7 F Temperature Source Oral Pulse Rate 87 82 Pulse Rate [Left] 90 Respiratory Rate 32 H 25 H 27 H Blood Pressure 112/86 107/77 L Blood Pressure [Right Arm] 112/86 Blood Pressure Mean [Right Arm] 94 Blood Pressure Source [Right Arm] Automatic Cuff Blood Pressure Position [Right Arm] Sitting 02 Sat by Pulse Oximetry 98 98 97 Oxygen Delivery Method BiPAP Nasal Cannula BiPAP 01/15/24 15:30 Temperature Temperature Source Pulse Rate 80 Pulse Rate [Left] Respiratory Rate 29 H Blood Pressure 111/74 Blood Pressure [Right Arm] Blood Pressure Mean [Right Arm] Blood Pressure Source [Right Arm] Blood Pressure Position [Right Arm] 02 Sat by Pulse Oximetry 97 Oxygen Delivery Method BiPAP Lab Data Lab Results 01/15/24 14:50: WBC 6.8, RBC 5.75, Hgb 19.4 H, Hct 58.2 H, MCV 101.3 H, MCH 33.8 H, MCHC 33.4, RDW 14.7, Plt Count 232, MPV 7.3 L, Neut % (Auto) 74.5, Lymph % (Auto) 16.3, Elliott % (Auto) 7.7, Eos % (Auto) 0.5, Baso % (Auto) 0.9, Neut # (Auto) 5.1, Lymph # (Auto) 1.1, Elliott # (Auto) 0.5, Eos # (Auto) 0.0, Baso # (Auto) 0.1, PT 11.4, INR 1.02, D-Dimer < 0.25 01/15/24 14:57: VBG pH 7.26 L, VBG pCO2 71.5 H, VBG pO2 38.0, VBG HCO3 31.1 H, V BG Total CO2 33.3 H, VBG O2 Saturation 69.7, VBG Base Excess 4.0 H, VBG Lactic Acid 1.9 Orders (Tests/Meds): ED MEDICATIONS Generic Name Dose Route Start Last Admin Trade Name Freq PRN Reason Stop Dose Admin Levofloxacin/Dextrose 750 mg in 150 mls @ 100 mls/hr 01/15/24 16:10 01/15/24 16:16 Levofloxacin 750mg/150ml Premix IV 01/15/24 17:39 100 mls/hr ONCE ONE Administration Discontinued Medications Generic Name Dose Route Start Last Admin Trade Name Freq PRN Reason Stop Dose Admin Albuterol/Ipratropium 9 ml 01/15/24 14:55 01/15/24 15:02 Ipratropium/Albuterol 3 Ml Neb IH 01/15/24 14:56 9 ml ONCE ONE Administration Dexamethasone Sodium Phosphate 10 mg 01/15/24 14:55 01/15/24 15:02 Dexamethasone 4mg/Ml 5ml Mdv IV 01/15/24 14:56 10 mg ONCE ONE Administration ORDERS Category Date Time Status Chest XR -- portable [XR chest portable] Stat Exams 01/15/24 14:55 Taken BNP [NT Pro Brain Natriuretic Pep.] Stat Lab 01/15/24 14:50 Received CBC w/Auto Diff [Complete Blood Count Auto Diff] Stat Lab 01/15/24 14:50 Completed CMP [Comprehensive Metabolic Panel] Stat Lab 01/15/24 14:50 Received D-Dimer Stat Lab 01/15/24 14:50 Completed Full Resp Panel w/COVID (H) Routine Lab 01/15/24 15:09 Received HIV (1&2) Antibody Rapid Stat Lab 01/15/24 14:50 Received Hep C Ab with Reflex to RNA Stat Lab 01/15/24 14:50 Received INR [Prothrombin Time INR] Stat Lab 01/15/24 14:50 Completed Magnesium Stat Lab 01/15/24 14:50 Received Procalcitonin Stat Lab 01/15/24 14:50 Received Trop I [Troponin I] Stat Lab 01/15/24 14:50 Received Troponin I Q3H Lab 01/15/24 18:00 Ordered Troponin I Q3H Lab 01/15/24 21:00 Ordered UA [Urinalysis and Microscopic] Stat Lab 01/15/24 14:57 Ordered Blood Culture Stat Micro 01/15/24 15:01 Received VBG [Venous Blood Gas] Stat RT 01/15/24 14:57 Completed ECG Data Tracing #1: I reviewed this ECG and interpreted as documented below: Motion artifact from respiratory effort significantly degrades study however appears to be normal sinus rhythm with ventricular rate of 85 bpm. No obvious acute ST elevations concerning for ischemia. ECG initial impression date: 01/15/24 ECG initial impression time: 14:58 Critical Care <SUMMER Wetzel - Last Filed: 01/15/24 16:30> Critical Care Time Critical Care Time: Yes Attestation: On 01/15/24, the high probability of a clinically significant, sudden or life threatening deterioration of the following system cardiopulmonary required my full and direct attention, intervention and personal management. The time I documented below is in addition to time spent performing reported procedures but includes the following listed in this critical care notation. Total Time Total Critical Care Time: 30
--- NOTE | 2024-01-15 14:55 | XR_ITS ---
FINAL REPORT CLINICAL HISTORY: Dyspnea COMPARISON: 09/19/2023 FINDINGS: A single view of the chest was obtained. The heart is normal in size. There is an unfolded aorta. There is scarring at the lung bases. The lungs are hyperinflated. There is no acute infiltrate. There is no pleural effusion. There is no pneumothorax. There is no acute osseous abnormality. IMPRESSION: No acute cardiopulmonary process. No significant change from the prior exam. Reviewed, Interpreted and Dictated by Gabe Rodriguez MD Transcribed by Nisreen Beatty Authenticated and . [facility]
[2024-01-15] MEDS: DEXAMETHASONE 4MG/ML 5ML MDV 10 MG IV (15:02)
[2024-01-15] MEDS: IPRATROPIUM/ALBUTEROL 3 ML NEB 9 ML IH (15:02)
[2024-01-15 15:05] LABS: Lactate Venous 1.9 mmol/L (0.4-2.0); VBG HCO3 31.1 mmol/L (23-30); VBG Oxygen Saturation 69.7 % (50-70); VBG PCO2 71.5 mmol/L (35-51); VBG PH 7.26 mmol/L (7.31-7.41); VBG Total CO2 33.3 mmol/L (23-27)
[2024-01-15 15:07] LABS: Basophils # 0.1 K/mm3 (0-0.2); Basophils % 0.9 % (0.1-2.0); Eosinophils % 0.5 % (0.1-12.0); Hematocrit 58.2 % (42.0-52.0); Lymphocytes # 1.1 K/mm3 (0.7-4.5); Lymphocytes % 16.3 % (10-50); Mean Corpuscular HGB Conc 33.4 g/dL (31.8-35.4); Mean Corpuscular Hemoglobin 33.8 pg (27.0-31.2); Mean Corpuscular Volume 101.3 fl (80-94); Mean Platelet Volume 7.3 fl (7.4-10.4); Monocytes # 0.5 K/mm3 (0.1-1.0); Monocytes % 7.7 % (1.7-9.3); Neutrophils # 5.1 K/mm3 (1.8-7.8); Neutrophils % 74.5 % (37.0-80.0); Platelet Count 232 K/mm3 (142-424); Red Blood Count 5.75 M/mm3 (4.60-6.20); Red Cell Distribution Width 14.7 % (11.5-17.5); White Blood Count 6.8 K/mm3 (4.8-10.8)
[2024-01-15 15:13] LABS: Adenovirus,PCR Not Detected (NotDetected); Bordetella Pertussis Not Detected (NotDetected); Chlamydophila Pneumoniae, PCR Not Detected (NotDetected); Coronavirus 19, PCR Not Detected (NotDetected); Coronavirus 229E Not Detected (NotDetected); Coronavirus NL63 Not Detected (NotDetected); Coronavirus OC43 Not Detected (NotDetected); Coronovirus HKU1,PCR Not Detected (NotDetected); Human Metapneumovirus Not Detected (NotDetected); Influenza A, PCR Not Detected (NotDetected); Influenza AH1, 2009 Not Detected (NotDetected); Influenza AH1, PCR Not Detected (NotDetected); Influenza AH3,PCR Not Detected (NotDetected); Influenza B, PCR Not Detected (NotDetected); Mycoplasma Pneumoniae, PCR Not Detected (NotDetected); Parainfluenza 1, PCR Not Detected (NotDetected); Parainfluenza 2, PCR Not Detected (NotDetected); Parainfluenza 3, PCR Not Detected (NotDetected); Respiratory Syncytial Virus Not Detected (NotDetected); Rhinovirus/Enterovirus Not Detected (NotDetected)
[2024-01-15 15:17] LABS: INR 1.02 (0.9-1.1); Prothrombin Time 11.4 seconds (10.1-12.5)
--- NOTE | 2024-01-15 15:17 | PC.NURSE ---
RT AWARE OF NEED FOR BIPAP
[2024-01-15 15:26] LABS: Albumin Level 4.7 g/dl (3.5-5.0); Chloride 104 mmol/L (98-107); Sodium 142 mmol/L (136-145)
[2024-01-15 15:27] LABS: Potassium 4.5 mmoL/L (3.5-5.1)
[2024-01-15 15:29] LABS: Alanine Aminotransferase 36 U/L (12-78); Anion Gap 9.5 mEq/L (5-15); Aspartate Amino Transferase 39 U/L (17-59); Blood Urea Nitrogen 47 mg/dl (9-20); Carbon Dioxide 33 mmol/L (22.0-30.0); Creatinine Clearance Estimated 66 mL/min (50-200); Estimated Glomerular Filt Rate 67 ml/min (>60); GFR (African American) 81 ML/MIN (>60)
[2024-01-15 15:30] LABS: Albumin/Globulin Ratio 1.3 (1.1-1.8); Alkaline Phosphatase 98 U/L (38-126); Calcium 9.4 mg/dl (8.4-10.2); Globulin 3.5 g/dL (1.3-3.2); Glucose 130 mg/dl (74-100); Magnesium 2.2 mg/dl (1.6-2.3); Total Protein,Serum 8.2 g/dl (6.3-8.2)
[2024-01-15 15:37] LABS: D-Dimer < 0.25 ug/mL (0.0-0.5)
[2024-01-15 15:38] LABS: Hemoglobin 19.4 g/dL (14.1-18.0)
[2024-01-15 15:40] LABS: NT Pro Brain Natriuretic Pep. 486 pg/mL (0-125)
[2024-01-15 15:43] LABS: Troponin I < 0.01 ng/ml (0.00-0.034)
[2024-01-15 15:47] LABS: Procalcitonin 0.069 ng/mL (0.0-2.0)
[2024-01-15] MEDS: LEVOFLOXACIN/D5W 750 MG/150 ML 750 MG/150 ML PIGGYBACK 100 MG IV (16:16)
--- NOTE | 2024-01-15 16:21 | PC.NURSE ---
House notified of admission.
--- NOTE | 2024-01-15 16:25 | EXP.HP ---
History of Present Illness *Admission Date: 01/15/24 *Reason for visit:: dyspnea *History of present illness: Mr. Flores is a 68-year-old male with significant history of COPD, pulmonary emboli, CAD, hyperlipidemia, chronic respiratory failure on oxygen. He reports worsening cough and shortness of breath over the past 2 to 3 days. States his significant other was sick last week, he began not feeling well this week. Presented to the ER because of worsening shortness of breath. States he had seen his PCP last week and was diagnosed with pneumonia and put back on antibiotics and steroids. No improvement however in symptoms. Wearing 5 L at home. On arrival to the ER, EMS reports he was found to be hypoxic at home. Brought to the ER for evaluation. Denies fever, chills, nausea or vomiting. Initiated on nebulizers in the ER. Initial workup concerning for hypercapnia with respiratory acidosis. Started on BiPAP. Medicine consulted for admission On arrival to the floor, still having significant respiratory distress put on nasal cannula at this time. Stating he does not want to wear BiPAP. Talked about the necessity for BiPAP for a while, patient agreeable. Would like to eat. Overall feeling a little bit better. Alert and oriented x 3. [facility] Disclaimer: The information contained in this section may have been updated after the patient was seen, as this information can be updated by other users. Medical History Bilateral pulmonary embolism COPD mixed type Pulmonary emphysema Smoking greater than 30 pack years Necrotizing pneumonia Healthcare-associated pneumonia Pulmonary embolism Acute respiratory failure with hypoxia and hypercarbia Cough CAD in [place] artery Hilar lymphadenopathy Nodule of right lung Shortness of Breath Atypical angina Coronary artery calcification seen on CAT scan Pneumonia CAP (community acquired pneumonia) Alcohol use disorder, severe, in early remission Tobacco dependence COPD (chronic obstructive pulmonary disease) Hyperlipidemia Hypertension Obesity (BMI 30-39.9) Surgical History History of colonoscopy Family History Mother Lung cancer Father COPD (chronic obstructive pulmonary disease) Social History Smoking Status: Current every day smoker tobacco type: cigarettes packs per day: 2 second hand exposure: No alcohol intake: current alcohol intake frequency: 0-2 drinks per day current occupational status: disabled Travel in the last 8 weeks: None household members: significant other caffeine: No Other Medical History Have you received the Flu Vaccine for this season: No Have you received the Pneumonia Vaccine: No Review of Systems Review of Systems Review of systems (narrative): 14 point review of systems performed, pertinent positives and negatives as per HPI Meds Home Medications and Allergies Home Medications ?Medication ?Instructions ?Recorded ?Confirmed ?Type albuterol sulfate 90 mcg/actuation 1 - 2 puffs inhalation Q4HP PRN 03/24/20 01/15/24 History aerosol inhaler Shortness Of Breath Or Wheezing escitalopram oxalate 20 mg tablet 20 mg PO DAILY 03/24/20 01/15/24 History aspirin 81 mg tablet,delayed 81 mg PO DAILY 05/22/23 01/15/24 History release bisoprolol fumarate 5 mg tablet 5 mg PO DAILY 05/22/23 01/15/24 History fluticasone fur. 100 mcg-umeclid 1 inh inhalation DAILY 05/22/23 01/15/24 History 62.5 mcg-vilant 25 mcg inhalat.powder (Trelegy Ellipta) folic acid 1 mg tablet 1 mg PO DAILY 05/22/23 01/15/24 History apixaban 5 mg tablet (Eliquis) 5 mg PO BID 07/07/23 01/15/24 History furosemide 20 mg tablet 20 mg PO MOWEFR 07/07/23 01/15/24 History pantoprazole 40 mg tablet,delayed 40 mg PO DAILY 07/07/23 01/15/24 History release rosuvastatin 10 mg tablet 10 mg PO PM 07/07/23 01/15/24 History ipratropium 0.5 mg-albuterol 3 mg 3 ml inhalation Q6RT #0 mL 07/12/23 01/15/24 Rx (2.5 mg base)/3 mL nebulization soln amlodipine 10 mg tablet 10 mg PO AM 01/15/24 01/15/24 History lisinopril 20 12.5 tab PO AM 01/15/24 01/15/24 History mg-hydrochlorothiazide 12.5 mg tablet New Prescriptions to Start Prescriptions: Allergies Allergy/AdvReac Type Severity Reaction Status Date / Time erythromycin base Allergy Unknown NA-NAUSEA/V Verified 01/15/24 15:07 [ERYTHROMYCIN BASE] OMITING Exam Data for Last 24 hours Vital signs and Labs for Last 24 Hours: Temp Pulse Resp BP Pulse Ox O2 Del Method FiO2 97.7 F 80 29 H 111/74 97 BiPAP 30 01/15/24 14:56 01/15/24 15:30 01/15/24 15:30 01/15/24 15:30 01/15/24 15:30 01/15/24 15:30 01/15/24 15:32 Laboratory Results - last 24 hr 01/15/24 14:50: WBC 6.8, RBC 5.75, Hgb 19.4 H, Hct 58.2 H, MCV 101.3 H, MCH 33.8 H, MCHC 33.4, RDW 14.7, Plt Count 232, MPV 7.3 L, Neut % (Auto) 74.5, Lymph % (Auto) 16.3, [place] % (Auto) 7.7, Eos % (Auto) 0.5, Baso % (Auto) 0.9, Neut # (Auto) 5.1, Lymph # (Auto) 1.1, [place] # (Auto) 0.5, Eos # (Auto) 0.0, Baso # (Auto) 0.1, PT 11.4, INR 1.02, D-Dimer < 0.25, Sodium 142, Potassium 4.5, Chloride 104, Carbon Dioxide 33 H, BUN 47 H, Creatinine 1.10, Glucose 130 H, Calcium 9.4, Magnesium 2.2, Total Bilirubin 1.0, AST 39, ALT 36, Alkaline Phosphatase 98, Troponin I < 0.01, NT-Pro-B Natriuret Pep 486 H, Total Protein 8.2 D, Albumin 4.7, Procalcitonin 0.069 01/15/24 14:57: VBG pH 7.26 L, VBG pCO2 71.5 H, VBG pO2 38.0, VBG HCO3 31.1 H, VBG Total CO2 33.3 H, VBG O2 Saturation 69.7, VBG Base Excess 4.0 H, VBG Lactic Acid 1.9 I & O for Last 24 hours: Intake & Output 01/12/24 01/13/24 01/14/24 01/15/24 23:59 23:59 23:59 23:59 Weight 72.575 kg Constitutional Constitutional: moderate distress, chronically ill appearing and cooperative *Routine HEENT Exam Head: Present normocephalic Eye: Present EOMI and PERRL ENT: Present mucous membranes moist *Routine Neck Exam Neck: Present supple, full ROM and trachea midline; Absent JVD or carotid bruit Routine Chest/Breast/Axilla Exam Comments: Barrel chested *Routine Respiratory Exam Respiratory: Present accessory muscle use, decreased breath sounds, respiratory distress, rhonchi, wheezes, diminished air movement and symmetric chest movement *Routine Cardiovascular Exam Cardiovascular: Present tachycardia; Absent murmur *Routine Abdominal Exam Abdominal: Present soft and normoactive bowel sounds; Absent tenderness, distended or rebound *Routine Rectal Exam Rectal:: deferred *Routine Genitalia Exam Genitalia:: deferred *Routine Extremities Exam Extremities: Present full ROM and pulses intact; Absent cyanosis, clubbing or edema *Routine Skin Exam Skin: Present warm; Absent rash *Routine Neurological Exam Neurological: Present alert, oriented X3, moving all extremities, vision grossly intact and hearing grossly intact; Absent sensory deficit or motor deficit Routine Psychiatric Exam Psychiatric: Present normal affect, normal thought process and cooperative Assessment and Plan *Assessment and plan (1) Acute on chronic respiratory failure with hypoxia and hypercapnia: Status: Acute Category: Medical Code(s): J96.21 - Acute and chronic respiratory failure with hypoxia; J96.22 - Acute and chronic respiratory failure with hypercapnia (2) Acute exacerbation of chronic obstructive pulmonary disease: Status: Acute Category: Medical Code(s): J44.1 - Chronic obstructive pulmonary disease with (acute) exacerbation (3) RUBENS (acute kidney injury): Status: Acute Category: Medical Code(s): N17.9 - Acute kidney failure, unspecified (4) CAD (coronary artery disease): Status: Acute Category: Medical Code(s): I25.10 - Atherosclerotic heart disease of [place] coronary artery without angina pectoris (5) Smoking greater than 30 pack years: Status: Acute Category: Social Hx Code(s): F17.210 - Nicotine dependence, cigarettes, uncomplicated (6) Anxiety: Status: Acute Category: Medical Code(s): F41.9 - Anxiety disorder, unspecified (7) Pulmonary embolism: Status: Acute Qualifiers: Pulmonary embolism type: other Chronicity: acute Acute cor pulmonale presence: without acute cor pulmonale Qualified Code(s): I26.99 - Other pulmonary embolism without acute cor pulmonale Category: Medical Code(s): I26.99 - Other pulmonary embolism without acute cor pulmonale (8) Hypertension: Status: Acute Category: Medical Code(s): I10 - Essential (primary) hypertension (9) Hyperlipidemia: Status: Acute Category: Medical Code(s): E78.5 - Hyperlipidemia, unspecified (10) Tobacco dependence: Status: Acute Category: Medical Code(s): F17.200 - Nicotine dependence, unspecified, uncomplicated (11) Alcohol use disorder, severe, in early remission: Status: Acute Category: Medical Code(s): F10.21 - Alcohol dependence, in remission Plan Patient patient is a 68-year-old male with past medical history of CAD, pulmonary embolism on Eliquis, COPD on 4 to 6 L nasal cannula at home, hypertension, hyperlipidemia who presents to the hospital due to shortness of breath. Shortness of breath is gotten worse over the past few days. His significant other was sick last week and now he has had increased cough and dyspnea. Discussed case with ER physician, request admission for hypercapnic respiratory failure. I agreed to admit for further management. Continue to wear BiPAP as he is responding appropriately with improvement in pH. Problems addressed as follows: Acute hypoxic and hypercapnic respiratory failure COPD exacerbation Parainfluenza infection - White count normal at 6.8, hemoglobin elevated at 19.4. Concerning for hemoconcentration versus erythrocytosis. Monitor daily. Will consider therapeutic phlebotomy if not improving and remains short of breath. - Initial blood gas with VBG pH 7.26, pCO2 71. Wore BiPAP for 3 hours, repeat ABG shows pH 7.3, pCO2 59. Showing improvement. Improving mentation. Continue BiPAP tonight while asleep. - Comprehensive respiratory panel positive for para flu. - Blood cultures pending. -Per my review of chest x-ray, has scarring in the right lower lobe but no new consolidation or airspace disease. - Pulmonology consulted, appreciate their assistance in care -Initiated on levofloxacin 750 mg once in the ER. Will reevaluate need for antibiotics in the morning. -Received dexamethasone 10 mg IV once in the ER, continue methylprednisolone 40 mg IV daily - Supplemental oxygen with goal sats greater than 90%. -Continue DuoNebs scheduled every 4 hours. Budesonide twice daily. - Trelegy 100 inhaler daily - Repeat CBC, CMP, magnesium ordered for the morning Mood disorder: Continue Lexapro 20 mg daily RUBENS: BUN elevated at 47, creatinine 1.1, consistent with prerenal state. Bicarb elevated 33 on CMP, potassium 4.5. CAD Chronic HFpEF - BNP elevated at 486 -Has had no ischemic changes. Okay to discontinue telemetry - Continue aspirin, statin - amlodipine 10 mg daily, bisoprolol 5 mg daily, Crestor 10 mg daily. Holding lisinopril in the setting of RUBENS Pulmonary hypertension History of PE - Continue home Eliquis - Echo 04/26 did show normal EF, preserved ejection fraction, grade 1 diastolic dysfunction, continue home Lasix DVT prophylaxis-on Eliquis Full code Cardiac diet
--- NOTE | 2024-01-15 16:44 | PC.NURSE ---
CALLED 2ND FLOOR TO GIVE REPORT. STATED TO CALL BACK SHORTLY NURSE JUST GOT ANOTHER ADMISSION AND THEY'RE STILL CLEANING A ROOM.
--- NOTE | 2024-01-15 17:10 | PC.NURSE ---
CALLED REPORT TO MASON BECERRA
--- NOTE | 2024-01-15 18:08 | PC.NURSE ---
arrived by stretcher from ED
[2024-01-15 18:27] LABS: ABG Base Excess 2.6 mmol/L (-2.4-2.3); ABG Oxygen Saturation 97 % (90-100); ABG PH 7.31 mmol/L (7.35-7.45); ABG PO2 99.3 mmhg (80-100); ABG TCO2 30.8 mmhg (23-27)
[2024-01-15 18:28] LABS: ABG PCO2 59.5 mmhg (35.0-45.0); Allen's Test Acceptable; Oxygen 3LPM %; Source Right Brachial
[2024-01-15] MEDS: IPRATROPIUM/ALBUTEROL 3 ML NEB IH ×2 (18:34→21:32)
[2024-01-15] MEDS: BUDESONIDE 0.5MG/2ML NEB 0.5 MG IH (18:34)
[2024-01-15 18:36] LABS: Troponin I < 0.01 ng/ml (0.00-0.034)
--- NOTE | 2024-01-15 18:40 | PC.NURSE ---
medication rec. completed using external pharmacy.
[2024-01-15 19:03] LABS: Parainfluenza 4, PCR Detected (NotDetected)
[2024-01-15 19:54] LABS: HIV (1&2) Antibody Rapid NONREACTIVE (NONREACTIVE)
[2024-01-15] MEDS: PANTOPRAZOLE 40MG TABLET 40 MG PO (20:24)
[2024-01-15] MEDS: APIXABAN 5MG TABLET 5 MG PO (20:24)
[2024-01-15] MEDS: FUROSEMIDE 20MG TABLET 20 MG PO (20:24)
[2024-01-15 21:32] LABS: Appearance,Urine CLEAR (Clear); Blood, Urine Negative (Negative); Glucose,Urine (UA) Negative (Negative); Ketones,Urine Negative (Negative); Leukocyte Esterase,Urine Negative (Negative); Microscopic, Urine URINE MICROSCOPIC (MICROSCOPIC); Nitrate,Urine Negative (Negative); PH,Urine 5.5 (5.0-8.5); Protein,Urine TRACE (Negative); Specific Gravity, Urine >= 1.030 (1.005-1.030)
[2024-01-15 21:39] LABS: Bilirubin,Urine Negative (Negative); Color,Urine Dark Yellow (Yellow)
[2024-01-15 21:53] LABS: Bacteria,Urine 1+ /lpf; Mucus,Urine 1+ /lpf
--- NOTE | 2024-01-15 22:09 | ECG_ITS ---
APPROVED REPORT Exam: Resting ECG HR:86 bpm ECG Measurements Heart Rate 86 AXES WA 109 P 269 QRSd 86 QRS 77 QT 376 T 70 QTc 419 Conclusion JUNCTIONAL RHYTHM ABNORMAL RHYTHM ECG INTERPRETATION BASED ON A DEFAULT AGE OF 40 YEARS UNCONFIRMED REPORT Electronically signed by : Donta Moyer MD 01/17/2024 09:21:34
[2024-01-15 22:14] LABS: Troponin I < 0.01 ng/ml (0.00-0.034)
--- NOTE | 2024-01-15 22:19 | PC.NURSE ---
2202 - Malachi and Tung at bedside - RR activated r/t patient having 2 runs of VTACH roughly 60 seconds at 170's while sitting up on the side of the bed wearing the BIPAP, stating something ain't right . Crash cart bedside/. Laid patient back into bed RR team arrived. EKG and labs obtained. BIPAP removed per patient and 2L NC applied. HR controlled in 80's. Patient states he feels okay now. 2226 patient went into another run of VTACH at 170-180 for roughly 45 seconds, denies any sx. Malachi RN had patient bear down, no changes in HR. Tung had patient blow in syringe and patient converted back to junctional. patient stable at this time.
[2024-01-15 22:22] LABS: POC Glucose,Bedside 114 (70-110)
[2024-01-15 22:38] LABS: Albumin Level 4.5 g/dl (3.5-5.0); Chloride 101 mmol/L (98-107); Potassium 4.4 mmoL/L (3.5-5.1); Sodium 140 mmol/L (136-145)
[2024-01-15 22:40] LABS: Anion Gap 11.4 mEq/L (5-15); Basophils % 0.5 % (0.1-2.0); Blood Urea Nitrogen 49 mg/dl (9-20); Carbon Dioxide 32 mmol/L (22.0-30.0); Creatinine Clearance Estimated 60 mL/min (50-200); Eosinophils % 0.1 % (0.1-12.0); Estimated Glomerular Filt Rate 60 ml/min (>60); GFR (African American) 73 ML/MIN (>60); Hematocrit 52.4 % (42.0-52.0); Hemoglobin 17.7 g/dL (14.1-18.0); Lymphocytes # 0.4 K/mm3 (0.7-4.5); Mean Corpuscular HGB Conc 33.8 g/dL (31.8-35.4); Mean Corpuscular Hemoglobin 33.7 pg (27.0-31.2); Mean Corpuscular Volume 99.7 fl (80-94); Mean Platelet Volume 7.7 fl (7.4-10.4); Monocytes # 0.2 K/mm3 (0.1-1.0); Monocytes % 4.9 % (1.7-9.3); Neutrophils # 4.2 K/mm3 (1.8-7.8); Neutrophils % 86.5 % (37.0-80.0); Platelet Count 211 K/mm3 (142-424); Red Blood Count 5.26 M/mm3 (4.60-6.20); Red Cell Distribution Width 14.8 % (11.5-17.5); White Blood Count 4.9 K/mm3 (4.8-10.8)
[2024-01-15 22:41] LABS: Alanine Aminotransferase 33 U/L (12-78); Albumin/Globulin Ratio 1.5 (1.1-1.8); Alkaline Phosphatase 92 U/L (38-126); Aspartate Amino Transferase 33 U/L (17-59); Bilirubin,Total 0.8 mg/dl (0.2-1.3); Calcium 9.2 mg/dl (8.4-10.2); Globulin 3.1 g/dL (1.3-3.2); Glucose 127 mg/dl (74-100); MANUAL DIFFERENTIAL MANUAL DIFFERENTIAL (MANUAL DIFF); Total Protein,Serum 7.6 g/dl (6.3-8.2)
--- NOTE | 2024-01-15 22:54 | PC.NURSE ---
2202 - Malachi and Tung at bedside - RR activated r/t patient having 2 runs of SVT roughly 60 seconds at 170's while sitting up on the side of the bed wearing the BIPAP, stating something ain't right . Crash cart bedside/. Laid patient back into bed RR team arrived. EKG and labs obtained. BIPAP removed per patient and 2L NC applied. HR controlled in 80's. Patient states he feels okay now. 2226 patient went into another run of SVT at 170-180 for roughly 45 seconds, denies any sx. Malachi BECERRA had patient bear down, no changes in HR. Tung had patient blow in syringe and patient converted back to junctional. patient stable at this time. 2243 patient had another run of SVT 180's for roughly 35-40 seconds - Malachi BECERRA had pt blow on syringe 2x for 10 seconds each and HR decreased to 80's.
[2024-01-15 23:00] LABS: Troponin I < 0.01 ng/ml (0.00-0.034)
--- NOTE | 2024-01-15 23:01 | ECG_ITS ---
APPROVED REPORT Exam: Resting ECG HR:163 bpm ECG Measurements Heart Rate 163 AXES IL 80 P 188 QRSd 82 QRS 76 QT 280 T 68 QTc 370 Conclusion SINUS TACHYCARDIA WITH SHORT IL INTERVAL MODERATE ST DEPRESSION [0.05+ mV ST DEPRESSION] CRITICAL TEST RESULT INTERPRETATION BASED ON A DEFAULT AGE OF 40 YEARS UNCONFIRMED REPORT Electronically signed by : Donta Moyer MD 01/17/2024 09:21:29
--- NOTE | 2024-01-15 23:02 | ECG_ITS ---
APPROVED REPORT Exam: Resting ECG HR:170 bpm ECG Measurements Heart Rate 170 AXES QRSd 86 QRS 79 QT 267 T 71 QTc 359 Conclusion ATRIAL FIBRILLATION WITH RAPID VENTRICULAR RESPONSE MODERATE ST DEPRESSION [0.05+ mV ST DEPRESSION] CRITICAL TEST RESULT INTERPRETATION BASED ON A DEFAULT AGE OF 40 YEARS UNCONFIRMED REPORT Electronically signed by : Donta Moyer MD 01/17/2024 09:21:26
--- NOTE | 2024-01-15 23:03 | ECG_ITS ---
APPROVED REPORT Exam: Resting ECG HR:171 bpm ECG Measurements Heart Rate 171 AXES QRSd 90 QRS 79 QT 268 T 69 QTc 361 Conclusion ATRIAL FIBRILLATION WITH RAPID VENTRICULAR RESPONSE CRITICAL TEST RESULT INTERPRETATION BASED ON A DEFAULT AGE OF 40 YEARS UNCONFIRMED REPORT Electronically signed by : Donta Moyer MD 01/17/2024 09:21:19
[2024-01-15] MEDS: METOPROLOL TARTRATE 5MG/5ML VIAL 5 MG IV (23:05)
--- NOTE | 2024-01-15 23:05 | ECG_ITS ---
APPROVED REPORT Exam: Resting ECG HR:159 bpm ECG Measurements Heart Rate 159 AXES QRSd 86 QRS 81 QT 301 T 76 QTc 390 Conclusion ATRIAL FIBRILLATION WITH RAPID VENTRICULAR RESPONSE SEPTAL MYOCARDIAL INFARCTION , PROBABLY OLD [40+ ms Q WAVE IN V1/V2] CRITICAL TEST RESULT INTERPRETATION BASED ON A DEFAULT AGE OF 40 YEARS UNCONFIRMED REPORT Electronically signed by : Donta Moyer MD 01/17/2024 09:21:22
[2024-01-15] MEDS: AMIODARONE HCL 150 MG in DEXTROSE 5 % IN WATER 100 ML 618 MG IV (23:15)
[2024-01-15] MEDS: AMIODARONE HCL 900 MG in DEXTROSE 5 % IN WATER 500 ML 34.53 MG IV (23:29)
--- NOTE | 2024-01-15 23:34 | PC.NURSE ---
between [id number] patient maintained SVT 160's-180's, EKGx3 obtained reading ST, AFIB w/ RVR (see chart). denies CP, states he is feeling SOA sating 81% (increased to 4L NC) 2299 Blew in syringe multiple times, failed. 2302 5mg IVP Lopressor administered at and decreased HR to 80's for roughly 20 seconds and then patient went back to SVT. 2304 Hospitalist notified ordering amiodarone bolus/gtt 2305 ZOLL pads placed 2308 blew in syringe and HR decreased to 60's-70's in junctional and sustained - denies CP and SOA at this time 2314 Amiodarone bolus running 2315 22 LFA placed 2328 Amiodarone gtt began
[2024-01-16] VITALS (17 sets, daily range): BP systolic 91–141; BP diastolic 64–87; PULSE 63–91; RESP 18–25; TEMP 36.5–37.3; O2SAT 91–100; BMI 23.8
[2024-01-16 00:05] LABS: Lymphocytes % 10 % (10-50); Neutrophils % 89 % (42-76); Total Cells Counted 100
[2024-01-16 00:06] LABS: RBC Morphology Normal
[2024-01-16] MEDS: LEVALBUTEROL 1.25MG/3ML NEB 1.25 MG IH ×6 (01:59→21:51)
[2024-01-16] MEDS: IPRATROPIUM BROMIDE 0.5 MG/2.5ML SOLUTION IH ×6 (01:59→21:51)
--- NOTE | 2024-01-16 02:00 | PC.NURSE ---
RESP CARE NOTE: Pt is refusing to wear BiPAP at this time. Nurse notified.
[2024-01-16] MEDS: BUDESONIDE 0.5MG/2ML NEB 0.5 MG IH ×2 (06:19→18:05)
[2024-01-16 06:52] LABS: Basophils % 0.1 % (0.1-2.0); Eosinophils % 0.1 % (0.1-12.0); Hematocrit 52.3 % (42.0-52.0); Hemoglobin 17.1 g/dL (14.1-18.0); Lymphocytes % 13.3 % (10-50); Mean Corpuscular HGB Conc 32.6 g/dL (31.8-35.4); Mean Corpuscular Hemoglobin 33.7 pg (27.0-31.2); Mean Corpuscular Volume 103.2 fl (80-94); Mean Platelet Volume 7.6 fl (7.4-10.4); Monocytes # 0.7 K/mm3 (0.1-1.0); Monocytes % 9.8 % (1.7-9.3); Neutrophils # 5.6 K/mm3 (1.8-7.8); Neutrophils % 76.6 % (37.0-80.0); Platelet Count 213 K/mm3 (142-424); Red Blood Count 5.07 M/mm3 (4.60-6.20); Red Cell Distribution Width 14.6 % (11.5-17.5); White Blood Count 7.3 K/mm3 (4.8-10.8)
[2024-01-16 06:53] LABS: Albumin Level 4.2 g/dl (3.5-5.0); Chloride 104 mmol/L (98-107); Potassium 3.9 mmoL/L (3.5-5.1); Sodium 142 mmol/L (136-145)
[2024-01-16 06:55] LABS: Anion Gap 9.9 mEq/L (5-15); Blood Urea Nitrogen 49 mg/dl (9-20); Carbon Dioxide 32 mmol/L (22.0-30.0); Creatinine Clearance Estimated 54 mL/min (50-200); Estimated Glomerular Filt Rate 50 ml/min (>60); GFR (African American) 61 ML/MIN (>60)
[2024-01-16 06:56] LABS: Alanine Aminotransferase 31 U/L (12-78); Albumin/Globulin Ratio 1.4 (1.1-1.8); Alkaline Phosphatase 81 U/L (38-126); Aspartate Amino Transferase 30 U/L (17-59); Bilirubin,Total 0.8 mg/dl (0.2-1.3); Calcium 9.1 mg/dl (8.4-10.2); Globulin 2.9 g/dL (1.3-3.2); Glucose 104 mg/dl (74-100); Magnesium 2.2 mg/dl (1.6-2.3); Total Protein,Serum 7.1 g/dl (6.3-8.2)
[2024-01-16 08:28] LABS: Lactate Venous 1.6 mmol/L (0.4-2.0); VBG Base Excess 0.2 mmol/L (-2.4-2.3); VBG HCO3 26.1 mmol/L (23-30); VBG Oxygen Saturation 91.7 % (50-70); VBG PCO2 50.4 mmol/L (35-51); VBG PH 7.33 mmol/L (7.31-7.41); VBG PO2 63.9 mmol/L (28-40); VBG Total CO2 27.6 mmol/L (23-27)
[2024-01-16] MEDS: CITALOPRAM 40MG TABLET 40 MG PO (08:32)
[2024-01-16] MEDS: BISOPROLOL 5MG TABLET 5 MG PO ×2 (08:32→11:59)
[2024-01-16] MEDS: AMLODIPINE 10MG TABLET 10 MG PO (08:32)
[2024-01-16] MEDS: APIXABAN 5MG TABLET 5 MG PO ×2 (08:32→20:20)
[2024-01-16] MEDS: METHYLPREDNISOLONE SOD SUCC 40MG VIAL 40 MG IV (08:33)
--- NOTE | 2024-01-16 08:58 | HMH.PHAINT1 ---
Pharmacy Intervention Comments: Home medications verified using list from pharmacy and patient interview.
--- NOTE | 2024-01-16 10:43 | ECG_ITS ---
APPROVED REPORT Exam: Resting ECG HR:89 bpm ECG Measurements Heart Rate 89 AXES PA 111 P 215 QRSd 85 QRS 46 QT 372 T 57 QTc 419 Conclusion ECTOPIC ATRIAL RHYTHM WITH SHORT PA INTERVAL WITH OCCASIONAL SUPRAVENTRICULAR PREMATURE COMPLEXES ABNORMAL RHYTHM ECG UNCONFIRMED REPORT Electronically signed by : Donta Moyer MD 01/17/2024 09:21:16
--- NOTE | 2024-01-16 11:31 | EXP.CARD.CON ---
History of Present Illness History of Present Illness Consult date: 01/16/24 Requesting physician: Eloy Aaron Consult reason: atrial fibrillation Chief complaint: soa History of present illness: This is a 68-year-old white gentleman who presented to the emergency department with complaints of shortness of breath. He has a past medical history of COPD, PE, CAD, hypertension, hyperlipidemia and chronic respiratory failure on oxygen. The patient states for approximately 2 to 3 days prior to admission he began having worsening shortness of breath and a cough. The patient states that his shortness of breath was severe and occurring at rest. Worse with exertion. He states that it did improve with rest but did not resolve. The patient states that he has been having worsening weakness and fatigue for approximately a week as well. He did see his PCP and was diagnosed with pneumonia and put on antibiotics and steroids. He had no improvement in his symptoms. He was wearing 5 L via nasal cannula at home. Upon arrival by EMS at the patient's home he was hypoxemic. The patient was transported here to [facility] and has been being treated for COPD exacerbation. The patient did go into atrial fibrillation with RVR through the night. He was treated with an amiodarone drip and did convert to sinus rhythm. This morning he is in an ectopic atrial rhythm. He denies any chest pain or pressure. He denies any fever, chills, nausea, vomiting or diarrhea. [facility] Disclaimer: The information contained in this section may have been updated after the patient was seen, as this information can be updated by other users. Medical History (Updated 01/16/24 @ 11:38 by Jaz Espinoza APRN) Ectopic atrial rhythm Atrial fibrillation with RVR Bilateral pulmonary embolism COPD mixed type Pulmonary emphysema Smoking greater than 30 pack years Necrotizing pneumonia Healthcare-associated pneumonia Pulmonary embolism Acute respiratory failure with hypoxia and hypercarbia Cough CAD in [place] artery Hilar lymphadenopathy Nodule of right lung Shortness of Breath Atypical angina Coronary artery calcification seen on CAT scan Pneumonia CAP (community acquired pneumonia) Alcohol use disorder, severe, in early remission Tobacco dependence COPD (chronic obstructive pulmonary disease) Hyperlipidemia Hypertension Obesity (BMI 30-39.9) Surgical History History of colonoscopy Family History Mother Lung cancer Father COPD (chronic obstructive pulmonary disease) Social History Smoking Status: Current every day smoker tobacco type: cigarettes packs per day: 2 second hand exposure: No alcohol intake: current alcohol intake frequency: 0-2 drinks per day current occupational status: disabled Travel in the last 8 weeks: None household members: significant other caffeine: No Review of Systems Review of Systems Review of systems:: pertinent systems reviewed and negative unless documented below Constitutional Constitutional: Reports system reviewed and no additional complaints, except as documented, Reports fatigue, Reports lethargy and Reports weakness Eyes Eyes: Reports system reviewed and no additional complaints, except as documented ENT Ears, Nose, Mouth, and Throat: Reports system reviewed and no additional complaints, except as documented *Cardiovascular Cardiovascular: Reports system reviewed and no additional complaints, except as documented, Denies chest pain, Reports dyspnea and Reports dyspnea on exertion *Respiratory Respiratory: Reports system reviewed and no additional complaints, except as documented, Reports chest congestion, Reports cough, Reports dyspnea, Reports dyspnea on exertion and Reports wheezing *Gastrointestinal Gastrointestinal: Reports system reviewed and no additional complaints, except as documented *Genitourinary Genitourinary: Reports system reviewed and no additional complaints, except as documented *Musculoskeletal Musculoskeletal: Reports system reviewed and no additional complaints, except as documented Integumentary/Breasts Skin/Breast: Reports system reviewed and no additional complaints, except as documented *Neurologic Neurologic: Reports system reviewed and no additional complaints, except as documented and Reports weakness Psychiatric Psychiatric: Reports system reviewed and no additional complaints, except as documented Endocrine Endocrine: Reports system reviewed and no additional complaints, except as documented and Reports fatigue Hematologic/Lymphatic Hematologic/Lymphatic: Reports system reviewed and no additional complaints, except as documented Allergic/Immunologic Allergic/Immunologic: Reports system reviewed and no additional complaints, except as documented and Reports wheezing Exam Data for Last 24 hours Vital signs and Labs for Last 24 Hours: Temp Pulse Resp BP Pulse Ox O2 Del Method O2 Flow Rate 99.1 F 87 24 141/84 H 94 L Nasal Cannula 1 01/16/24 00:00 01/16/24 11:05 01/16/24 10:00 01/16/24 10:00 01/16/24 10:00 01/16/24 11:00 01/16/24 11:00 FiO2 30 01/15/24 21:33 Laboratory Results - last 24 hr 01/15/24 14:50: WBC 6.8, RBC 5.75, Hgb 19.4 H, Hct 58.2 H, MCV 101.3 H, MCH 33.8 H, MCHC 33.4, RDW 14.7, Plt Count 232, MPV 7.3 L, Neut % (Auto) 74.5, Lymph % (Auto) 16.3, [place] % (Auto) 7.7, Eos % (Auto) 0.5, Baso % (Auto) 0.9, Neut # (Auto) 5.1, Lymph # (Auto) 1.1, [place] # (Auto) 0.5, Eos # (Auto) 0.0, Baso # (Auto) 0.1, PT 11.4, INR 1.02, D-Dimer < 0.25, Sodium 142, Potassium 4.5, Chloride 104, Carbon Dioxide 33 H, Anion Gap 9.5, BUN 47 H, Creatinine 1.10, Estimated Creat Clear 66, Estimated GFR 67, Est GFR ( Amer) 81, Glucose 130 H, Calcium 9.4, Magnesium 2.2, Total Bilirubin 1.0, AST 39, ALT 36, Alkaline Phosphatase 98, Troponin I < 0.01, NT-Pro-B Natriuret Pep 486 H, Total Protein 8.2 D, Albumin 4.7, Globulin 3.5 H, Albumin/Globulin Ratio 1.3, Procalcitonin 0.069, HIV 1&2 Antibody Rapid Nonreactive 01/15/24 14:57: VBG pH 7.26 L, VBG pCO2 71.5 H, VBG pO2 38.0, VBG HCO3 31.1 H, VBG Total CO2 33.3 H, VBG O2 Saturation 69.7, VBG Base Excess 4.0 H, VBG Lactic Acid 1.9 01/15/24 15:09: Chlamy pneumoniae PCR Not detected, Adenovirus (PCR) Not detected, B. pertussis DNA (PCR) Not detected, Coronavirus OC43 (PCR) Not detected, Coronavirus HKU1 (PCR) Not detected, Coronavirus 229E (PCR) Not detected, SARS-CoV-2 (PCR) Not detected, Coronavirus NL63 (PCR) Not detected, Human Metapneumovir PCR Not detected, Influenza A (H1) PCR Not detected, Influ A (H1N1/09) PCR Not detected, Influenza A (H3) PCR Not detected, Influenza Type A (PCR) Not detected, Influenza Type B (PCR) Not detected, M. pneumoniae (PCR) Not detected, Parainfluenza 1 (PCR) Not detected, Parainfluenza 2 (PCR) Not detected, Parainfluenza 3 (PCR) Not detected, Parainfluenza 4 (PCR) Detected A, RSV (PCR) Not detected, Entero/Rhino (PCR) Not detected 01/15/24 18:00: Troponin I < 0.01 01/15/24 18:26: Specimen Source Right brachial, O2 % 3lpm, ABG pH 7.31 L, ABG pCO2 59.5 H, ABG pO2 99.3, ABG HCO3 29.0 H, ABG Total CO2 30.8 H, ABG O2 Saturation 97, ABG Base Excess 2.6 H, Sukumar Test Acceptable 01/15/24 21:13: Troponin I < 0.01 01/15/24 21:28: Urine Color Dark yellow, Urine Appearance Clear, Urine pH 5.5, Ur Specific [place] >= 1.030, Urine Protein Trace, Urine Glucose (UA) Negative, Urine Ketones Negative, Urine Blood Negative, Urine Nitrate Negative, Urine Bilirubin Negative, Urine Urobilinogen 1.0, Ur Leukocyte Esterase Negative, Urine WBC 3-5, Ur Squamous Epith Cells 5-10, Urine Bacteria 1+, Hyaline Casts 10-20, Urine Mucus 1+ 01/15/24 22:06: POC Glucose 114 H 01/15/24 22:15: WBC 4.9 D, RBC 5.26, Hgb 17.7, Hct 52.4 H, MCV 99.7 H, MCH 33.7 H, MCHC 33.8, RDW 14.8, Plt Count 211, MPV 7.7, Neut % (Auto) 86.5 H, Lymph % (Auto) 8.0 L, [place] % (Auto) 4.9, Eos % (Auto) 0.1, Baso % (Auto) 0.5, Neut # (Auto) 4.2, Lymph # (Auto) 0.4 L, [place] # (Auto) 0.2, Eos # (Auto) 0.0, Baso # (Auto) 0.0, Total Counted 100, Neutrophils % (Manual) 89 H, Lymphocytes % (Manual) 10, Atypical Lymphs % 1.0, RBC Morphology Normal, Sodium 140, Potassium 4.4, Chloride 101, Carbon Dioxide 32 H, Anion Gap 11.4, BUN 49 H, Creatinine 1.20, Estimated Creat Clear 60, Estimated GFR 60, Est GFR ( Amer) 73, Glucose 127 H, Calcium 9.2, Magnesium 2.0, Total Bilirubin 0.8, AST 33, ALT 33, Alkaline Phosphatase 92, Troponin I < 0.01, Total Protein 7.6, Albumin 4.5, Globulin 3.1, Albumin/Globulin Ratio 1.5 01/16/24 05:28: WBC 7.3 D, RBC 5.07, Hgb 17.1, Hct 52.3 H, MCV 103.2 H, MCH 33.7 H, MCHC 32.6, RDW 14.6, Plt Count 213, MPV 7.6, Neut % (Auto) 76.6, Lymph % (Auto) 13.3, [place] % (Auto) 9.8 H, Eos % (Auto) 0.1, Baso % (Auto) 0.1, Neut # (Auto) 5.6, Lymph # (Auto) 1.0, [place] # (Auto) 0.7, Eos # (Auto) 0.0, Baso # (Auto) 0.0, Sodium 142, Potassium 3.9, Chloride 104, Carbon Dioxide 32 H, Anion Gap 9.9, BUN 49 H, Creatinine 1.40 H, Estimated Creat Clear 54, Estimated GFR 50 L, Est GFR ( Amer) 61, Glucose 104 H, Calcium 9.1, Magnesium 2.2, Total Bilirubin 0.8, AST 30, ALT 31, Alkaline Phosphatase 81, Total Protein 7.1, Albumin 4.2, Globulin 2.9, Albumin/Globulin Ratio 1.4 01/16/24 08:25: VBG pH 7.33, VBG pCO2 50.4, VBG pO2 63.9 H, VBG HCO3 26.1, VBG Total CO2 27.6 H, VBG O2 Saturation 91.7 H, VBG Base Excess 0.2, VBG Lactic Acid 1.6 I & O for Last 24 hours: Intake & Output 01/13/24 01/14/24 01/15/24 01/16/24 23:59 23:59 23:59 23:59 Intake Total 360 / 740 1545.454 / 1545.454 Output Total 100 / 100 775 / 775 Balance 260 / 640 770.454 / 770.454 Weight 160 lb 166 lb 3 oz Microbiology Reports for the Last 24 Hours: Microbiology 01/15/24 21:30 Sputum - Expectorated Sputum Gram Stain - Preliminary 01/15/24 21:30 Sputum - Expectorated Sputum Sputum Culture - Preliminary Constitutional Constitutional: no acute distress and average body habitus *Routine HEENT Exam Head: Present normocephalic and atraumatic ENT: Present mucous membranes moist *Routine Neck Exam Neck: Present supple, full ROM and normal carotid upstroke; Absent JVD, carotid bruit or lymphadenopathy *Routine Respiratory Exam Respiratory: Present wheezes, normal respiratory effort, able to speak in complete sentences and symmetric chest movement *Routine Cardiovascular Exam Cardiovascular: Present RRR, Normal S1 and Normal S2; Absent murmur or gallop *Routine Abdominal Exam Abdominal: Present soft and normoactive bowel sounds; Absent tenderness, distended or organomegaly *Routine Extremities Exam Extremities: Present full ROM, pulses intact and normal capillary refill; Absent cyanosis, clubbing or edema *Routine Skin Exam Skin: Present intact and warm; Absent erythema *Routine Neurological Exam Neurological: Present alert, oriented X3 and CN II-XII intact; Absent sensory deficit or motor deficit Routine Psychiatric Exam Psychiatric: Present normal affect Meds Home Medications and Allergies Home Medications ?Medication ?Instructions ?Recorded ?Confirmed ?Type albuterol sulfate 90 mcg/actuation 1 - 2 puffs inhalation Q4HP PRN 03/24/20 01/15/24 History aerosol inhaler Shortness Of Breath Or Wheezing escitalopram oxalate 20 mg tablet 20 mg PO DAILY 03/24/20 01/15/24 History aspirin 81 mg tablet,delayed 81 mg PO DAILY 05/22/23 01/15/24 History release bisoprolol fumarate 5 mg tablet 5 mg PO DAILY 05/22/23 01/15/24 History fluticasone fur. 100 mcg-umeclid 1 inh inhalation DAILY 05/22/23 01/15/24 History 62.5 mcg-vilant 25 mcg inhalat.powder (Trelegy Ellipta) folic acid 1 mg tablet 1 mg PO DAILY 05/22/23 01/15/24 History apixaban 5 mg tablet (Eliquis) 5 mg PO BID 07/07/23 01/15/24 History furosemide 20 mg tablet 20 mg PO MOWEFR 07/07/23 01/15/24 History ipratropium 0.5 mg-albuterol 3 mg 3 ml inhalation Q6RT #0 mL 07/12/23 01/16/24 Rx (2.5 mg base)/3 mL nebulization soln amlodipine 10 mg tablet 5 mg PO AM 01/15/24 01/16/24 History lisinopril 20 12.5 tab PO AM 01/15/24 01/15/24 History mg-hydrochlorothiazide 12.5 mg tablet atorvastatin 40 mg tablet 40 mg PO HS 01/16/24 01/16/24 History New Prescriptions to Start Prescriptions: Allergies Allergy/AdvReac Type Severity Reaction Status Date / Time erythromycin base Allergy Unknown NA-NAUSEA/V Verified 01/15/24 15:07 [ERYTHROMYCIN BASE] OMITING Assessment and Plan *Assessment and plan (1) Atrial fibrillation with RVR: Status: Acute Category: Medical Code(s): I48.91 - Unspecified atrial fibrillation (2) Ectopic atrial rhythm: Status: Acute Category: Medical Code(s): I49.1 - Atrial premature depolarization (3) Acute exacerbation of chronic obstructive pulmonary disease: Status: Acute Category: Medical Code(s): J44.1 - Chronic obstructive pulmonary disease with (acute) exacerbation (4) Acute on chronic respiratory failure with hypoxia and hypercapnia: Status: Acute Category: Medical Code(s): J96.21 - Acute and chronic respiratory failure with hypoxia; J96.22 - Acute and chronic respiratory failure with hypercapnia (5) Bilateral pulmonary embolism: Status: Acute Category: Medical Code(s): I26.99 - Other pulmonary embolism without acute cor pulmonale (6) Pulmonary emphysema: Status: Acute Qualifiers: Emphysema type: unspecified Qualified Code(s): J43.9 - Emphysema, unspecified Category: Medical Code(s): J43.9 - Emphysema, unspecified (7) CAD in [place] artery: Status: Acute Category: Medical Code(s): I25.10 - Atherosclerotic heart disease of [place] coronary artery without angina pectoris (8) Hypertension: Status: Acute Qualifiers: Hypertension type: primary hypertension Qualified Code(s): I10 - Essential (primary) hypertension Category: Medical Code(s): I10 - Essential (primary) hypertension (9) Hyperlipidemia: Status: Acute Qualifiers: Hyperlipidemia type: mixed hyperlipidemia Qualified Code(s): E78.2 - Mixed hyperlipidemia Category: Medical Code(s): E78.5 - Hyperlipidemia, unspecified (10) Shortness of Breath: Status: Acute Category: Medical Code(s): R06.02 - Shortness of breath (11) RUBENS (acute kidney injury): Status: Acute Category: Medical Code(s): N17.9 - Acute kidney failure, unspecified Plan Plan: 1. The patient was admitted to the hospital for COPD exacerbation. Will defer management of this to the hospitalist. 2. The patient did go into a short burst of atrial fibrillation with RVR last night. He was started on amiodarone drip and did convert to sinus rhythm. This morning he is in the next topic atrial rhythm. Will stop the amiodarone drip due to his severe underlying lung disease, we do not want him on this medication long-term. 3. Will increase his bisoprolol to 10 mg p.o. daily for suppression of his atrial fibrillation. 4. The patient is currently on Norvasc. Will stop this medication and switch him over to diltiazem ER 120 mg p.o. daily to also suppress his atrial fibrillation. 5. Will continue Eliquis for long-term anticoagulation. 6. His echocardiogram is currently pending at this time. 7. The patient denies any chest pain or pressure. His troponins were negative. No plans for invasive left cardiac catheterization at this time. 8. The patient does have RUBENS. His creatinine is up to 1.4. Will continue to follow. 9. His blood pressure is well-controlled. 10. His LDL goal is less than 55. He is on a statin. Will get a lipid panel in the morning. 11. Further recommendations will be made pending the patient's response to treatment. Thank you for the opportunity to help participate in the care of this patient. All recommendations and orders are per Dr. Smith.
[2024-01-16] MEDS: dilTIAZem ER 120MG CAPSULE 120 MG PO (11:59)
--- NOTE | 2024-01-16 13:12 | EXP.PULM.CON ---
History of Present Illness History of present illness: Mr. Flores is a 68-year-old male greater than [id number] smoking history, COPD, recurrent hypercarbic respiratory failure last seen in pulmonary clinic July 2023 after his hospital discharge for necrotizing pneumonia missed his clinic follow-up appointments and CT imaging presented to the hospital worsening respiratory distress and pulmonary was called for further evaluation and management. [facility] Disclaimer: The information contained in this section may have been updated after the patient was seen, as this information can be updated by other users. Medical History (Updated 01/16/24 @ 13:19 by Bryan Ramirez MD) Viral pneumonia Ectopic atrial rhythm Atrial fibrillation with RVR Bilateral pulmonary embolism COPD mixed type Pulmonary emphysema Smoking greater than 30 pack years Necrotizing pneumonia Healthcare-associated pneumonia Pulmonary embolism Acute respiratory failure with hypoxia and hypercarbia Cough CAD in [place] artery Hilar lymphadenopathy Nodule of right lung Shortness of Breath Atypical angina Coronary artery calcification seen on CAT scan Pneumonia CAP (community acquired pneumonia) Alcohol use disorder, severe, in early remission Tobacco dependence COPD (chronic obstructive pulmonary disease) Hyperlipidemia Hypertension Obesity (BMI 30-39.9) Surgical History History of colonoscopy Family History Mother Lung cancer Father COPD (chronic obstructive pulmonary disease) Social History Smoking Status: Current every day smoker tobacco type: cigarettes packs per day: 2 second hand exposure: No alcohol intake: current alcohol intake frequency: 0-2 drinks per day current occupational status: disabled Travel in the last 8 weeks: None household members: significant other caffeine: No Review of Systems Constitutional Constitutional: Reports fatigue and Reports weakness Eyes Eyes: Denies eye discharge, Denies dry eyes, Denies irritation and Denies itchy eyes ENT Ears, Nose, Mouth, and Throat: Denies epistaxis, Denies facial pain, Denies lip swelling and Denies throat swelling *Cardiovascular Cardiovascular: Reports dyspnea and Reports dyspnea on exertion *Respiratory Respiratory: Denies change in phlegm color, Reports chest congestion, Reports cough, Reports dyspnea, Reports dyspnea on exertion, Denies excessive phlegm production and Reports wheezing *Gastrointestinal Gastrointestinal: Denies abdominal pain, Denies belching and Denies cramping *Musculoskeletal Musculoskeletal: Reports back pain, Reports myalgias and Reports other (No small joint swelling or Pain) *Neurologic Neurologic: Reports system reviewed and no additional complaints, except as documented and Reports weakness Psychiatric Psychiatric: Denies homicidal ideation and Denies suicidal ideation Endocrine Endocrine: Reports fatigue and Denies heat intolerance Hematologic/Lymphatic Hematologic/Lymphatic: Denies easy bleeding and Denies lymphadenopathy Allergic/Immunologic Allergic/Immunologic: Denies itchy eyes, Denies lip swelling, Denies throat swelling and Reports wheezing Pulmonology Exam Inpatient Vital signs and Labs for Last 24 Hours: Temp Pulse Resp BP Pulse Ox O2 Del Method O2 Flow Rate 99.1 F 90 22 128/76 91 L Nasal Cannula 1 01/16/24 00:00 01/16/24 12:00 01/16/24 12:00 01/16/24 12:00 01/16/24 12:00 01/16/24 12:00 01/16/24 12:00 FiO2 30 01/15/24 21:33 Laboratory Results - last 24 hr 01/15/24 14:50: WBC 6.8, RBC 5.75, Hgb 19.4 H, Hct 58.2 H, MCV 101.3 H, MCH 33.8 H, MCHC 33.4, RDW 14.7, Plt Count 232, MPV 7.3 L, Neut % (Auto) 74.5, Lymph % (Auto) 16.3, [place] % (Auto) 7.7, Eos % (Auto) 0.5, Baso % (Auto) 0.9, Neut # (Auto) 5.1, Lymph # (Auto) 1.1, [place] # (Auto) 0.5, Eos # (Auto) 0.0, Baso # (Auto) 0.1, PT 11.4, INR 1.02, D-Dimer < 0.25, Sodium 142, Potassium 4.5, Chloride 104, Carbon Dioxide 33 H, Anion Gap 9.5, BUN 47 H, Creatinine 1.10, Estimated Creat Clear 66, Estimated GFR 67, Est GFR ( Amer) 81, Glucose 130 H, Calcium 9.4, Magnesium 2.2, Total Bilirubin 1.0, AST 39, ALT 36, Alkaline Phosphatase 98, Troponin I < 0.01, NT-Pro-B Natriuret Pep 486 H, Total Protein 8.2 D, Albumin 4.7, Globulin 3.5 H, Albumin/Globulin Ratio 1.3, Procalcitonin 0.069, HIV 1&2 Antibody Rapid Nonreactive 01/15/24 14:57: VBG pH 7.26 L, VBG pCO2 71.5 H, VBG pO2 38.0, VBG HCO3 31.1 H, VBG Total CO2 33.3 H, VBG O2 Saturation 69.7, VBG Base Excess 4.0 H, VBG Lactic Acid 1.9 01/15/24 15:09: Chlamy pneumoniae PCR Not detected, Adenovirus (PCR) Not detected, B. pertussis DNA (PCR) Not detected, Coronavirus OC43 (PCR) Not detected, Coronavirus HKU1 (PCR) Not detected, Coronavirus 229E (PCR) Not detected, SARS-CoV-2 (PCR) Not detected, Coronavirus NL63 (PCR) Not detected, Human Metapneumovir PCR Not detected, Influenza A (H1) PCR Not detected, Influ A (H1N1/09) PCR Not detected, Influenza A (H3) PCR Not detected, Influenza Type A (PCR) Not detected, Influenza Type B (PCR) Not detected, M. pneumoniae (PCR) Not detected, Parainfluenza 1 (PCR) Not detected, Parainfluenza 2 (PCR) Not detected, Parainfluenza 3 (PCR) Not detected, Parainfluenza 4 (PCR) Detected A, RSV (PCR) Not detected, Entero/Rhino (PCR) Not detected 01/15/24 18:00: Troponin I < 0.01 01/15/24 18:26: Specimen Source Right brachial, O2 % 3lpm, ABG pH 7.31 L, ABG pCO2 59.5 H, ABG pO2 99.3, ABG HCO3 29.0 H, ABG Total CO2 30.8 H, ABG O2 Saturation 97, ABG Base Excess 2.6 H, Sukumar Test Acceptable 01/15/24 21:13: Troponin I < 0.01 01/15/24 21:28: Urine Color Dark yellow, Urine Appearance Clear, Urine pH 5.5, Ur Specific [place] >= 1.030, Urine Protein Trace, Urine Glucose (UA) Negative, Urine Ketones Negative, Urine Blood Negative, Urine Nitrate Negative, Urine Bilirubin Negative, Urine Urobilinogen 1.0, Ur Leukocyte Esterase Negative, Urine WBC 3-5, Ur Squamous Epith Cells 5-10, Urine Bacteria 1+, Hyaline Casts 10-20, Urine Mucus 1+ 01/15/24 22:06: POC Glucose 114 H 01/15/24 22:15: WBC 4.9 D, RBC 5.26, Hgb 17.7, Hct 52.4 H, MCV 99.7 H, MCH 33.7 H, MCHC 33.8, RDW 14.8, Plt Count 211, MPV 7.7, Neut % (Auto) 86.5 H, Lymph % (Auto) 8.0 L, [place] % (Auto) 4.9, Eos % (Auto) 0.1, Baso % (Auto) 0.5, Neut # (Auto) 4.2, Lymph # (Auto) 0.4 L, [place] # (Auto) 0.2, Eos # (Auto) 0.0, Baso # (Auto) 0.0, Total Counted 100, Neutrophils % (Manual) 89 H, Lymphocytes % (Manual) 10, Atypical Lymphs % 1.0, RBC Morphology Normal, Sodium 140, Potassium 4.4, Chloride 101, Carbon Dioxide 32 H, Anion Gap 11.4, BUN 49 H, Creatinine 1.20, Estimated Creat Clear 60, Estimated GFR 60, Est GFR ( Amer) 73, Glucose 127 H, Calcium 9.2, Magnesium 2.0, Total Bilirubin 0.8, AST 33, ALT 33, Alkaline Phosphatase 92, Troponin I < 0.01, Total Protein 7.6, Albumin 4.5, Globulin 3.1, Albumin/Globulin Ratio 1.5 01/16/24 05:28: WBC 7.3 D, RBC 5.07, Hgb 17.1, Hct 52.3 H, MCV 103.2 H, MCH 33.7 H, MCHC 32.6, RDW 14.6, Plt Count 213, MPV 7.6, Neut % (Auto) 76.6, Lymph % (Auto) 13.3, [place] % (Auto) 9.8 H, Eos % (Auto) 0.1, Baso % (Auto) 0.1, Neut # (Auto) 5.6, Lymph # (Auto) 1.0, [place] # (Auto) 0.7, Eos # (Auto) 0.0, Baso # (Auto) 0.0, Sodium 142, Potassium 3.9, Chloride 104, Carbon Dioxide 32 H, Anion Gap 9.9, BUN 49 H, Creatinine 1.40 H, Estimated Creat Clear 54, Estimated GFR 50 L, Est GFR ( Amer) 61, Glucose 104 H, Calcium 9.1, Magnesium 2.2, Total Bilirubin 0.8, AST 30, ALT 31, Alkaline Phosphatase 81, Total Protein 7.1, Albumin 4.2, Globulin 2.9, Albumin/Globulin Ratio 1.4 01/16/24 08:25: VBG pH 7.33, VBG pCO2 50.4, VBG pO2 63.9 H, VBG HCO3 26.1, VBG Total CO2 27.6 H, VBG O2 Saturation 91.7 H, VBG Base Excess 0.2, VBG Lactic Acid 1.6 I & O for Labs for Last 24 Hours: Intake & Output 01/13/24 01/14/24 01/15/24 01/16/24 23:59 23:59 23:59 23:59 Intake Total 360 / 740 1659.436 / 1659.436 Output Total 100 / 100 775 / 775 Balance 260 / 640 884.436 / 884.436 Weight 160 lb 166 lb 3 oz Microbiology Reports for the Last 24 Hours: Microbiology 01/15/24 21:30 Sputum - Expectorated Sputum Gram Stain - Preliminary 01/15/24 21:30 Sputum - Expectorated Sputum Sputum Culture - Preliminary Constitutional: Present moderate distress Head: Present normocephalic and atraumatic ENT: Present normal exam, normal oropharynx and mucous membranes moist Neck: Present normal inspection and full ROM Respiratory: Present prolonged expiratory phase, respiratory distress, rhonchi, wheezes and able to speak in complete sentences Cardiac: Present Irregularly Regular, S1/S2, Tachycardia and radial pulses present GI: Present soft and distention; Absent tenderness or guarding Skin: Present intact; Absent cyanosis or jaundice Neuro: Present alert, awake and oriented x 3 Extremities: Present normal inspection; Absent clubbing or cyanosis Psychiatric: Present normal affect and cooperative Meds Home Medications and Allergies Home Medications ?Medication ?Instructions ?Recorded ?Confirmed ?Type albuterol sulfate 90 mcg/actuation 1 - 2 puffs inhalation Q4HP PRN 03/24/20 01/15/24 History aerosol inhaler Shortness Of Breath Or Wheezing escitalopram oxalate 20 mg tablet 20 mg PO DAILY 03/24/20 01/15/24 History aspirin 81 mg tablet,delayed 81 mg PO DAILY 05/22/23 01/15/24 History release bisoprolol fumarate 5 mg tablet 5 mg PO DAILY 05/22/23 01/15/24 History fluticasone fur. 100 mcg-umeclid 1 inh inhalation DAILY 05/22/23 01/15/24 History 62.5 mcg-vilant 25 mcg inhalat.powder (Trelegy Ellipta) folic acid 1 mg tablet 1 mg PO DAILY 05/22/23 01/15/24 History apixaban 5 mg tablet (Eliquis) 5 mg PO BID 07/07/23 01/15/24 History furosemide 20 mg tablet 20 mg PO MOWEFR 07/07/23 01/15/24 History ipratropium 0.5 mg-albuterol 3 mg 3 ml inhalation Q6RT #0 mL 07/12/23 01/16/24 Rx (2.5 mg base)/3 mL nebulization soln amlodipine 10 mg tablet 5 mg PO AM 01/15/24 01/16/24 History lisinopril 20 12.5 tab PO AM 01/15/24 01/15/24 History mg-hydrochlorothiazide 12.5 mg tablet atorvastatin 40 mg tablet 40 mg PO HS 01/16/24 01/16/24 History New Prescriptions to Start Prescriptions: Allergies Allergy/AdvReac Type Severity Reaction Status Date / Time erythromycin base Allergy Unknown NA-NAUSEA/V Verified 01/15/24 15:07 [ERYTHROMYCIN BASE] OMITING Results Laboratory Findings 01/16/24 05:28 01/16/24 05:28 ABG ABG pH 7.31 mmol/L (7.35-7.45) L 01/15/24 18:26 ABG pCO2 59.5 mmhg (35.0-45.0) H 01/15/24 18:26 ABG pO2 99.3 mmhg (80-100) 01/15/24 18:26 ABG O2 Saturation 97 % (90-100) 01/15/24 18:26 PT/INR, D-dimer PT 11.4 seconds (10.1-12.5) 01/15/24 14:50 INR 1.02 (0.9-1.1) 01/15/24 14:50 D-Dimer < 0.25 ug/mL (0.0-0.5) 01/15/24 14:50 Abnormal lab findings: Abnormal Labs 01/15/24 01/15/24 01/15/24 14:50 14:57 15:09 Hgb 19.4 H Hct 58.2 H MCV 101.3 H MCH 33.8 H MPV 7.3 L Neut % (Auto) Lymph % (Auto) [place] % (Auto) Lymph # (Auto) Neutrophils % (Manual) ABG pH ABG pCO2 ABG HCO3 ABG Total CO2 ABG Base Excess VBG pH 7.26 L VBG pCO2 71.5 H VBG pO2 VBG HCO3 31.1 H VBG Total CO2 33.3 H VBG O2 Saturation VBG Base Excess 4.0 H Carbon Dioxide 33 H BUN 47 H Creatinine Estimated GFR Glucose 130 H POC Glucose NT-Pro-B Natriuret Pep 486 H Globulin 3.5 H Parainfluenza 4 (PCR) Detected A 01/15/24 01/15/24 01/15/24 18:26 22:06 22:15 Hgb Hct 52.4 H MCV 99.7 H MCH 33.7 H MPV Neut % (Auto) 86.5 H Lymph % (Auto) 8.0 L [place] % (Auto) Lymph # (Auto) 0.4 L Neutrophils % (Manual) 89 H ABG pH 7.31 L ABG pCO2 59.5 H ABG HCO3 29.0 H ABG Total CO2 30.8 H ABG Base Excess 2.6 H VBG pH VBG pCO2 VBG pO2 VBG HCO3 VBG Total CO2 VBG O2 Saturation VBG Base Excess Carbon Dioxide 32 H BUN 49 H Creatinine Estimated GFR Glucose 127 H POC Glucose 114 H NT-Pro-B Natriuret Pep Globulin Parainfluenza 4 (PCR) 01/16/24 01/16/24 05:28 08:25 Hgb Hct 52.3 H MCV 103.2 H MCH 33.7 H MPV Neut % (Auto) Lymph % (Auto) [place] % (Auto) 9.8 H Lymph # (Auto) Neutrophils % (Manual) ABG pH ABG pCO2 ABG HCO3 ABG Total CO2 ABG Base Excess VBG pH VBG pCO2 VBG pO2 63.9 H VBG HCO3 VBG Total CO2 27.6 H VBG O2 Saturation 91.7 H VBG Base Excess Carbon Dioxide 32 H BUN 49 H Creatinine 1.40 H Estimated GFR 50 L Glucose 104 H POC Glucose NT-Pro-B Natriuret Pep Globulin Parainfluenza 4 (PCR) Assessment and Plan *Assessment and plan (1) Viral pneumonia: Status: Acute Category: Medical Code(s): J12.9 - Viral pneumonia, unspecified (2) Acute exacerbation of chronic obstructive pulmonary disease: Status: Acute Category: Medical Code(s): J44.1 - Chronic obstructive pulmonary disease with (acute) exacerbation Plan Mr. Flores is a 68-year-old male greater than [id number] smoking history, COPD, recurrent hypercarbic respiratory failure last seen in pulmonary clinic July 2023 after his hospital discharge for necrotizing pneumonia missed his clinic follow-up appointments and CT imaging presented to the hospital worsening respiratory distress and pulmonary was called for further evaluation and management. Afebrile. Hemodynamically stable. Chest x-ray no dense consolidative/infiltrates noted. No evidence of leukocytosis. Blood gas upon admission mild hypercarbic respiratory failure, subsequent venous blood gases normalized. PCR positive panel positive for parainfluenza virus. On examination patient does not appear to be in any respiratory distress. No significant wheezing noted on auscultation. On 2 L saturating 95% and above. Plan: Initiate Trelegy 100 inhaler along with DuoNebs every 6 as needed Wean steroids to prednisone 40 mg daily x 5 days Will hold off on initiating antibiotics at this point of time Continue oxygen supplementation to maintain O2 saturation below 89% and above, wean as tolerated.
--- NOTE | 2024-01-16 17:51 | PC.NURSE ---
pt has remained alert and oriented this shift. pt started shift on 2L nc, pt was dropped to 1L nc d/t high o2 sats. pt was satting in low 90s when he stated he wanted his oxygen turned up pt educated on his o2 sats and pt demanded to be turned up. pt turned up to 2L and has remained on 2L since. EKG was obtained this morning per order( see report). pt amio drip was turned of this a.m. per cardiology. pt PO doses of diltiazem and bisoprolol was orderd. no new orders at this time. call light within reach.
[2024-01-16] MEDS: PANTOPRAZOLE 40MG TABLET 40 MG PO (20:20)
[2024-01-16] MEDS: MELATONIN 5MG TABLET 10 MG PO (20:53)
--- NOTE | 2024-01-16 22:04 | EXP.PN ---
Subjective *Date: 01/16/24 *Time: 07:41 Interval history: He states his respiratory status has improved today, has significantly decreased work of breathing today. No audible wheezing. No chest paiin. Exam Data for Last 24 hours Vital signs and Labs for Last 24 Hours: Temp Pulse Resp BP Pulse Ox O2 Del Method O2 Flow Rate 98.2 F 68 25 H 116/73 95 Nasal Cannula 3 01/16/24 20:00 01/16/24 20:00 01/16/24 20:00 01/16/24 20:00 01/16/24 20:00 01/16/24 21:00 01/16/24 21:00 FiO2 28 01/16/24 19:03 Laboratory Results - last 24 hr 01/15/24 21:13: Troponin I < 0.01 01/15/24 22:06: POC Glucose 114 H 01/15/24 22:15: WBC 4.9 D, RBC 5.26, Hgb 17.7, Hct 52.4 H, MCV 99.7 H, MCH 33.7 H, MCHC 33.8, RDW 14.8, Plt Count 211, MPV 7.7, Neut % (Auto) 86.5 H, Lymph % (Auto) 8.0 L, [place] % (Auto) 4.9, Eos % (Auto) 0.1, Baso % (Auto) 0.5, Neut # (Auto) 4.2, Lymph # (Auto) 0.4 L, [place] # (Auto) 0.2, Eos # (Auto) 0.0, Baso # (Auto) 0.0, Total Counted 100, Neutrophils % (Manual) 89 H, Lymphocytes % (Manual) 10, Atypical Lymphs % 1.0, RBC Morphology Normal, Sodium 140, Potassium 4.4, Chloride 101, Carbon Dioxide 32 H, Anion Gap 11.4, BUN 49 H, Creatinine 1.20, Estimated Creat Clear 60, Estimated GFR 60, Est GFR ( Amer) 73, Glucose 127 H, Calcium 9.2, Magnesium 2.0, Total Bilirubin 0.8, AST 33, ALT 33, Alkaline Phosphatase 92, Troponin I < 0.01, Total Protein 7.6, Albumin 4.5, Globulin 3.1, Albumin/Globulin Ratio 1.5 01/16/24 05:28: WBC 7.3 D, RBC 5.07, Hgb 17.1, Hct 52.3 H, MCV 103.2 H, MCH 33.7 H, MCHC 32.6, RDW 14.6, Plt Count 213, MPV 7.6, Neut % (Auto) 76.6, Lymph % (Auto) 13.3, [place] % (Auto) 9.8 H, Eos % (Auto) 0.1, Baso % (Auto) 0.1, Neut # (Auto) 5.6, Lymph # (Auto) 1.0, [place] # (Auto) 0.7, Eos # (Auto) 0.0, Baso # (Auto) 0.0, Sodium 142, Potassium 3.9, Chloride 104, Carbon Dioxide 32 H, Anion Gap 9.9, BUN 49 H, Creatinine 1.40 H, Estimated Creat Clear 54, Estimated GFR 50 L, Est GFR ( Amer) 61, Glucose 104 H, Calcium 9.1, Magnesium 2.2, Total Bilirubin 0.8, AST 30, ALT 31, Alkaline Phosphatase 81, Total Protein 7.1, Albumin 4.2, Globulin 2.9, Albumin/Globulin Ratio 1.4 01/16/24 08:25: VBG pH 7.33, VBG pCO2 50.4, VBG pO2 63.9 H, VBG HCO3 26.1, VBG Total CO2 27.6 H, VBG O2 Saturation 91.7 H, VBG Base Excess 0.2, VBG Lactic Acid 1.6 I & O for Last 24 hours: Intake & Output 01/13/24 01/14/24 01/15/24 01/16/24 23:59 23:59 23:59 23:59 Intake Total 360 / 740 2619.436 / 2619.436 Output Total 100 / 100 1200 / 1200 Balance 260 / 640 1419.436 / 1419.436 Weight 72.575 kg 75.381 kg Microbiology Reports for the Last 24 Hours: Microbiology 01/15/24 15:01 Blood Blood Culture - Preliminary NO GROWTH AFTER 24 HOURS 01/15/24 14:50 Blood Blood Culture - Preliminary NO GROWTH AFTER 24 HOURS 01/15/24 21:30 Sputum - Expectorated Sputum Gram Stain - Preliminary 01/15/24 21:30 Sputum - Expectorated Sputum Sputum Culture - Preliminary Constitutional Constitutional: no acute distress *Routine HEENT Exam Head: Present normocephalic Eye: Present EOMI and PERRL ENT: Present mucous membranes moist *Routine Neck Exam Neck: Present supple; Absent lymphadenopathy *Routine Respiratory Exam Respiratory: Present wheezes and diminished air movement; Absent CTA bilaterally *Routine Cardiovascular Exam Cardiovascular: Present RRR *Routine Abdominal Exam Abdominal: Present soft and normoactive bowel sounds; Absent tenderness *Routine Extremities Exam Extremities: Absent cyanosis, clubbing or edema *Routine Skin Exam Skin: Present warm; Absent rash *Routine Neurological Exam Neurological: Present alert and oriented X3 Assessment and Plan *Assessment and plan (1) Acute on chronic respiratory failure with hypoxia and hypercapnia: Status: Acute Category: Medical Code(s): J96.21 - Acute and chronic respiratory failure with hypoxia; J96.22 - Acute and chronic respiratory failure with hypercapnia (2) Acute exacerbation of chronic obstructive pulmonary disease: Status: Acute Category: Medical Code(s): J44.1 - Chronic obstructive pulmonary disease with (acute) exacerbation (3) RUBENS (acute kidney injury): Status: Acute Category: Medical Code(s): N17.9 - Acute kidney failure, unspecified (4) CAD (coronary artery disease): Status: Acute Category: Medical Code(s): I25.10 - Atherosclerotic heart disease of [place] coronary artery without angina pectoris (5) Smoking greater than 30 pack years: Status: Acute Category: Social Hx Code(s): F17.210 - Nicotine dependence, cigarettes, uncomplicated (6) Anxiety: Status: Acute Category: Medical Code(s): F41.9 - Anxiety disorder, unspecified (7) Pulmonary embolism: Status: Acute Qualifiers: Pulmonary embolism type: other Chronicity: acute Acute cor pulmonale presence: without acute cor pulmonale Qualified Code(s): I26.99 - Other pulmonary embolism without acute cor pulmonale Category: Medical Code(s): I26.99 - Other pulmonary embolism without acute cor pulmonale (8) Hypertension: Status: Acute Qualifiers: Hypertension type: primary hypertension Qualified Code(s): I10 - Essential (primary) hypertension Category: Medical Code(s): I10 - Essential (primary) hypertension (9) Hyperlipidemia: Status: Acute Qualifiers: Hyperlipidemia type: mixed hyperlipidemia Qualified Code(s): E78.2 - Mixed hyperlipidemia Category: Medical Code(s): E78.5 - Hyperlipidemia, unspecified (10) Tobacco dependence: Status: Acute Category: Medical Code(s): F17.200 - Nicotine dependence, unspecified, uncomplicated (11) Alcohol use disorder, severe, in early remission: Status: Acute Category: Medical Code(s): F10.21 - Alcohol dependence, in remission Plan Patient patient is a 68-year-old male with past medical history of CAD, pulmonary embolism on Eliquis, COPD on 4 to 6 L nasal cannula at home, hypertension, hyperlipidemia who presents to the hospital due to shortness of breath. Shortness of breath is gotten worse over the past few days. His significant other was sick last week and now he has had increased cough and dyspnea. Discussed case with ER physician, request admission for hypercapnic respiratory failure. I agreed to admit for further management. Continue to wear BiPAP as he is responding appropriately with improvement in pH. Problems addressed as follows: Acute hypoxic and hypercapnic respiratory failure COPD exacerbation Parainfluenza infection - White count normal at 6.8, hemoglobin elevated at 19.4. Concerning for hemoconcentration versus erythrocytosis. Monitor daily. Will consider therapeutic phlebotomy if not improving and remains short of breath. - Initial blood gas with VBG pH 7.26, pCO2 71. Wore BiPAP for 3 hours, repeat ABG shows pH 7.3, pCO2 59. Showing improvement. Improving mentation. Continue BiPAP tonight while asleep. - Comprehensive respiratory panel positive for para flu. - Blood cultures pending. -Per my review of chest x-ray, has scarring in the right lower lobe but no new consolidation or airspace disease. ? Patient states he feels much better today, having significantly improved work of breathing. Continues to require 3 to 4 L nasal cannula. - Pulmonology consulted, appreciate their assistance in care. Discussed case, agreed with management. -Initiated on levofloxacin 750 mg once in the ER. Will reevaluate need for antibiotics in the morning. -Received dexamethasone 10 mg IV once in the ER, continue methylprednisolone 40 mg IV daily - Supplemental oxygen with goal sats greater than 90%. -Continue DuoNebs scheduled every 4 hours. Budesonide twice daily. - Trelegy 100 inhaler daily - Repeat CBC, CMP, magnesium ordered for the morning Mood disorder: Continue Lexapro 20 mg daily RUBENS: BUN elevated at 47, creatinine 1.1, consistent with prerenal state. Bicarb elevated 33 on CMP, potassium 4.5. CAD Chronic HFpEF - BNP elevated at 486 -Has had no ischemic changes. Okay to discontinue telemetry - Continue aspirin, statin - amlodipine 10 mg daily, bisoprolol 5 mg daily, Crestor 10 mg daily. Holding lisinopril in the setting of RUBENS Pulmonary hypertension History of PE - Continue home Eliquis - Echo 04/26 did show normal EF, preserved ejection fraction, grade 1 diastolic dysfunction, continue home Lasix DVT prophylaxis-on Eliquis Full code Cardiac diet
--- NOTE | 2024-01-16 23:08 | CA_ITS ---
APPROVED REPORT EXAM: Comprehensive 2D, Doppler, and color-flow Echocardiogram Clinical Office Technician: Nallely Morales CRT Ht: 5 ft 10 in Wt: 160lbs BSA: 1.90 BP: 111/74 mmHg Indications: COPD, Atrial Fibrillation, Hyperlipidemia, Hypertension/HDD, alcohol abuse, PE, home O2, SVT M-Mode Dimensions RVDd 3.90 cm (0.9-2.6) LA Diam 2.76 cm (1.9-4.0) LVDd 3.86 cm (3.5-5.7) LVDs 2.77 cm (3.5-5.7) IVSd 1.37 cm (0.6-1.1) PWd 0.64 cm (0.6-1.1) EF (Teich) 55.20% FS 28.20% EDV (Teich) 64.30 mL ESV (Teich) 28.80 mL LV Diastology E Decel Time 197 (160-240 msec) E/A Ratio 0.7 MED A' 8.70 cm/s LAT A' 8.00 cm/s Aortic Valve AO Peak GR. 3.40 mmHg Mitral Valve MV E Max Eron. 44.0 (40-130 cm/s) MV A Velocity 61.0 (40-130 cm/s) E/A Ratio 0.72 MV PHT 58.0 ms Pulmonary Valve PV Peak Velocity 141.0 (50-150 cm/s) Tricuspid Valve TR P. Velocity 350.00 cm/s RAP Estimate 10.00 mmHg RVSP 58.90 mmHg Left Ventricle The left ventricle is normal size. The left ventricular systolic function is normal. The left ventricular ejection fraction is within the normal range. There is increased LV wall thickness. There is normal LV segmental wall motion. Diastolic function is indeterminate. LVEF is 55%. Right Ventricle Right ventricle is mildly dilated. Right ventricle is mildly hypokinetic. Atria Left atrium is mildly dilated. The right atrium size is normal. There is no Doppler evidence of interatrial shunt. Aortic Valve Aortic valve is mildly thickened. There is no aortic valvular stenosis. No aortic regurgitation is present. Mitral Valve The mitral valve is mildly thickened. No evidence of mitral valve stenosis. There is no mitral valve regurgitation noted. Tricuspid Valve The tricuspid valve leaflets are thin and pliable. Mild tricuspid regurgitation. RVSP 35-40 mmHg. Pulmonic Valve The pulmonary valve is not well-visualized. Trace pulmonic regurgitation. Great Vessels The aortic root is not well-visualized. IVC is normal in size and collapses >50% with inspiration. Pericardium There is no pericardial effusion. Other Information Study Quality: Technically Difficult Conclusion Technically difficult study due to poor acoustic windows. Normal LV systolic function. Mild RV dilation with mild reduction in RV function. Mild LA dilation. Mild TR. Elevated RVSP 35-40 mmHg. Electronically signed by : Nay Smith MD 01/16/2024 11:35:23
[2024-01-17] VITALS (7 sets, daily range): BP systolic 113–114; BP diastolic 68–74; PULSE 59–70; RESP 16–22; TEMP 36.3–36.5; O2SAT 96–99; BMI 24.2
--- NOTE | 2024-01-17 04:30 | PC.NURSE ---
68 yo male pt has been A/O X 4 and has had uneventful night. [address] at 2 liters. He has denied SOA or any discomfort. Pt requested melatonin for sleep which was given and was effective. He does report no BM and unable to recall LBM thinking it was last week. He remains with insp and exp wheezing but denies cough. VSS for pt through shift
[2024-01-17 05:27] LABS: HCV Ab Non Reactive (Non Reactive)
[2024-01-17] MEDS: LEVALBUTEROL 1.25MG/3ML NEB 1.25 MG IH ×2 (05:58→09:15)
[2024-01-17] MEDS: BUDESONIDE 0.5MG/2ML NEB 0.5 MG IH (05:59)
[2024-01-17] MEDS: IPRATROPIUM BROMIDE 0.5 MG/2.5ML SOLUTION IH ×2 (05:59→09:15)
[2024-01-17 06:40] LABS: Basophils % 0.2 % (0.1-2.0); Eosinophils % 0.6 % (0.1-12.0); Hematocrit 47.7 % (42.0-52.0); Hemoglobin 15.4 g/dL (14.1-18.0); Lymphocytes # 1.5 K/mm3 (0.7-4.5); Lymphocytes % 23.2 % (10-50); Mean Corpuscular HGB Conc 32.4 g/dL (31.8-35.4); Mean Corpuscular Hemoglobin 33.7 pg (27.0-31.2); Mean Corpuscular Volume 103.9 fl (80-94); Mean Platelet Volume 7.7 fl (7.4-10.4); Monocytes # 0.6 K/mm3 (0.1-1.0); Monocytes % 8.9 % (1.7-9.3); Neutrophils # 4.2 K/mm3 (1.8-7.8); Platelet Count 178 K/mm3 (142-424); Red Blood Count 4.59 M/mm3 (4.60-6.20); Red Cell Distribution Width 14.7 % (11.5-17.5); White Blood Count 6.2 K/mm3 (4.8-10.8)
[2024-01-17 06:59] LABS: Albumin Level 3.5 g/dl (3.5-5.0); Chloride 108 mmol/L (98-107)
[2024-01-17 07:00] LABS: Potassium 4.3 mmoL/L (3.5-5.1); Sodium 141 mmol/L (136-145)
[2024-01-17 07:02] LABS: Alanine Aminotransferase 21 U/L (12-78); Alkaline Phosphatase 72 U/L (38-126); Anion Gap 5.3 mEq/L (5-15); Aspartate Amino Transferase 22 U/L (17-59); Bilirubin,Direct 0.1 mg/dl (0.0-0.4); Bilirubin,Indirect 0.5 mg/dL (0.0-0.9); Bilirubin,Total 0.6 mg/dl (0.2-1.3); Bilirubin,Unconjugated 0.4 mg/dL (0.0-1.1); Blood Urea Nitrogen 49 mg/dl (9-20); Carbon Dioxide 32 mmol/L (22.0-30.0); Creatinine Clearance Estimated 55 mL/min (50-200); Estimated Glomerular Filt Rate 50 ml/min (>60); GFR (African American) 61 ML/MIN (>60); Total Protein,Serum 6.1 g/dl (6.3-8.2)
[2024-01-17 07:03] LABS: Calcium 8.4 mg/dl (8.4-10.2); Chol/HDL Ratio 2.3 (1-3.5); Cholesterol 105 mg/dl (140-200); Glucose 104 mg/dl (74-100); HDL Cholesterol 46 mg/dl (40-60); Triglycerides 82 mg/dl (30-150); VLDL Cholesterol 16 mg/dL (0-40)
[2024-01-17 07:14] LABS: Direct LDL Cholesterol 36.36 mg/dL (100-129)
[2024-01-17] MEDS: predniSONE 20MG TAB 40 MG PO (08:39)
[2024-01-17] MEDS: CITALOPRAM 40MG TABLET 40 MG PO (08:39)
[2024-01-17] MEDS: APIXABAN 5MG TABLET 5 MG PO (08:39)
[2024-01-17] MEDS: BISOPROLOL 5MG TABLET 10 MG PO (08:39)
[2024-01-17] MEDS: dilTIAZem ER 120MG CAPSULE 120 MG PO (08:39)
--- NOTE | 2024-01-17 09:22 | EXP.CARD.PN ---
Subjective Subjective Date: 01/17/24 Time: 09:00 Principal diagnosis: Afib with RVR Interval history: This is a 68-year-old gentleman who was admitted to the hospital with a COPD exacerbation. The patient did go into atrial fibrillation with RVR. He has now converted to sinus rhythm. He states that he is feeling much better. He denies any chest pain or pressure. He denies any shortness of breath or edema. He denies any fever, chills, nausea, vomiting, diarrhea, PND or orthopnea. The patient states that he is ready to be discharged home today. Exam Data for Last 24 hours Vital signs and Labs for Last 24 Hours: Temp Pulse Resp BP Pulse Ox O2 Del Method O2 Flow Rate 97.6 F 61 20 114/72 99 Room Air 2 01/17/24 07:52 01/17/24 09:15 01/17/24 07:52 01/17/24 07:52 01/17/24 07:52 01/17/24 08:59 01/17/24 08:00 FiO2 28 01/16/24 19:03 Laboratory Results - last 24 hr 01/15/24 14:50: Hepatitis C Antibody Non reactive 01/17/24 05:21: WBC 6.2, RBC 4.59 L, Hgb 15.4, Hct 47.7, MCV 103.9 H, MCH 33.7 H, MCHC 32.4, RDW 14.7, Plt Count 178, MPV 7.7, Neut % (Auto) 67.0, Lymph % (Auto) 23.2, [place] % (Auto) 8.9, Eos % (Auto) 0.6, Baso % (Auto) 0.2, Neut # (Auto) 4.2, Lymph # (Auto) 1.5, [place] # (Auto) 0.6, Eos # (Auto) 0.0, Baso # (Auto) 0.0, Sodium 141, Potassium 4.3, Chloride 108 H, Carbon Dioxide 32 H, Anion Gap 5.3, BUN 49 H, Creatinine 1.40 H, Estimated Creat Clear 55, Estimated GFR 50 L, Est GFR ( Amer) 61, Glucose 104 H, Calcium 8.4, Total Bilirubin 0.6, Direct Bilirubin 0.1, Conjugated Bilirubin 0.0, Indirect Bilirubin 0.5, Unconjugated Bilirubin 0.4, AST 22 D, ALT 21 D, Alkaline Phosphatase 72, Total Protein 6.1 L, Albumin 3.5 D, Triglycerides 82, Cholesterol 105 L, LDL Cholesterol Direct 36.36 L, VLDL Cholesterol 16, HDL Cholesterol 46, Cholesterol/HDL Ratio 2.3 I & O for Last 24 hours: Intake & Output 01/14/24 01/15/24 01/16/24 01/17/24 23:59 23:59 23:59 23:59 Intake Total 360 / 740 2619.436 / 2619.436 480 / 480 Output Total 100 / 100 1350 / 1350 300 / 300 Balance 260 / 640 1269.436 / 1269.436 180 / 180 Weight 160 lb 166 lb 3 oz 169 lb 1 oz Microbiology Reports for the Last 24 Hours: Microbiology 01/15/24 21:30 Sputum - Expectorated Sputum Gram Stain - Final 01/15/24 21:30 Sputum - Expectorated Sputum Sputum Culture - Preliminary 01/15/24 15:01 Blood Blood Culture - Preliminary NO GROWTH AFTER 24 HOURS 01/15/24 14:50 Blood Blood Culture - Preliminary NO GROWTH AFTER 24 HOURS Constitutional Constitutional: no acute distress and average body habitus *Routine HEENT Exam Head: Present normocephalic and atraumatic ENT: Present mucous membranes moist *Routine Neck Exam Neck: Present supple, full ROM and normal carotid upstroke; Absent JVD, carotid bruit or lymphadenopathy *Routine Respiratory Exam Respiratory: Present wheezes, normal respiratory effort, able to speak in complete sentences and symmetric chest movement *Routine Cardiovascular Exam Cardiovascular: Present RRR, Normal S1 and Normal S2; Absent murmur or gallop *Routine Abdominal Exam Abdominal: Present soft and normoactive bowel sounds; Absent tenderness, distended or organomegaly *Routine Extremities Exam Extremities: Present full ROM, pulses intact and normal capillary refill; Absent cyanosis, clubbing or edema *Routine Skin Exam Skin: Present intact and warm; Absent erythema *Routine Neurological Exam Neurological: Present alert, oriented X3 and CN II-XII intact; Absent sensory deficit or motor deficit Routine Psychiatric Exam Psychiatric: Present normal affect Progress Note: A&P Assessment and plan (1) Atrial fibrillation with RVR: Status: Acute (2) Acute on chronic respiratory failure with hypoxia and hypercapnia: Status: Acute (3) Acute exacerbation of chronic obstructive pulmonary disease: Status: Acute (4) RUBENS (acute kidney injury): Status: Acute (5) CAD (coronary artery disease): Status: Acute (6) Smoking greater than 30 pack years: Status: Acute (7) Anxiety: Status: Acute (8) Pulmonary embolism: Status: Acute (9) Hypertension: Status: Acute (10) Hyperlipidemia: Status: Acute (11) Tobacco dependence: Status: Acute (12) Alcohol use disorder, severe, in early remission: Status: Acute (13) Ectopic atrial rhythm: Status: Acute Assessment and Plan Assessment and Plan for All Diagnoses:: Plan: 1. The patient was admitted to the hospital for COPD exacerbation. Will defer management of this to the hospitalist and pulmonology. 2. The patient did have an episode of atrial fibrillation with RVR during his hospitalization. He was started on amiodarone drip and did convert to an ectopic atrial rhythm. The amiodarone drip was stopped yesterday and his bisoprolol was increased and his amlodipine was switched to diltiazem ER. The patient is now in sinus rhythm. 3. Continue bisoprolol and diltiazem ER to current doses for suppression of atrial fibrillation. 4. Will continue Eliquis for long-term anticoagulation due to atrial fibrillation.. 5. His echocardiogram shows a normal ejection fraction and elevated RVSP. 6. The patient denies any chest pain or pressure. His troponins were negative. No plans for invasive left cardiac catheterization at this time. 7. The patient does have RUBENS. His creatinine is up to 1.4. 8. His blood pressure is well-controlled. 9. His LDL goal is less than 55. His LDL is 36. He is on a statin. 10. No further recommendations at this time from a cardiac standpoint. The patient can be discharged home today from a cardiac standpoint. He will need to follow-up in cardiology clinic in 1 to 2 weeks on an outpatient basis. 11. The patient can be discharged on the following cardiac medications: Eliquis 5 mg daily, aspirin 81 mg daily, bisoprolol 10 mg daily, diltiazem ER 120 mg daily, atorvastatin 40 mg p.o. nightly, Lasix 20 mg daily on Mondays, Wednesdays and Monday. Stop amlodipine. Stop lisinopril HCT. Thank you for the opportunity to help participate in the care of this patient. All recommendations and orders are per Dr. Smith.
[2024-01-17] MEDS: FLUTICASONE/UMECLIDIN/VILANTER 100/62.5/25MCG INHALER 1 PUFF IH (09:24)
--- NOTE | 2024-01-17 09:44 | P.PN_ITS ---
Subjective *Date: 01/17/24 *Time: 10:37 Interval history: No acute respiratory vents overnight. Admits continued improvement in his respiratory symptoms. Pulmonology Exam Inpatient Vital signs and Labs for Last 24 Hours: Temp Pulse Resp BP Pulse Ox O2 Del Method O2 Flow Rate 97.6 F 61 20 114/72 99 Room Air 2 01/17/24 07:52 01/17/24 09:15 01/17/24 07:52 01/17/24 07:52 01/17/24 07:52 01/17/24 08:59 01/17/24 08:00 FiO2 28 01/16/24 19:03 Laboratory Results - last 24 hr 01/15/24 14:50: Hepatitis C Antibody Non reactive 01/17/24 05:21: WBC 6.2, RBC 4.59 L, Hgb 15.4, Hct 47.7, MCV 103.9 H, MCH 33.7 H , MCHC 32.4, RDW 14.7, Plt Count 178, MPV 7.7, Neut % (Auto) 67.0, Lymph % (Auto) 23.2, [place] % (Auto) 8.9, Eos % (Auto) 0.6, Baso % (Auto) 0.2, Neut # (Auto) 4.2, Lymph # (Auto) 1.5, [place] # (Auto) 0.6, Eos # (Auto) 0.0, Baso # (Auto) 0.0, Sodium 141, Potassium 4.3, Chloride 108 H, Carbon Dioxide 32 H, Anion Gap 5.3, BUN 49 H, Creatinine 1.40 H, Estimated Creat Clear 55, Estimated GFR 50 L, Est GFR ( Amer) 61, Glucose 104 H, Calcium 8.4, Total Bilirubin 0.6, Direct Bilirubin 0.1, Conjugated Bilirubin 0.0, Indirect Bilirubin 0.5, Unconjugated Bilirubin 0.4, AST 22 D, ALT 21 D, Alkaline Phosphatase 72, Total Protein 6.1 L, Albumin 3.5 D, Triglycerides 82, Cholesterol 105 L, LDL Cholesterol Direct 36.36 L, VLDL Cholesterol 16, HDL Cholesterol 46, Cholesterol/HDL Ratio 2.3 Temp Pulse Resp BP Pulse Ox O2 Del Method O2 Flow Rate 99.1 F 90 22 128/76 91 L Nasal Cannula 1 01/16/24 00:00 01/16/24 12:00 01/16/24 12:00 01/16/24 12:00 01/16/24 12:00 01/16/24 12:00 01/16/24 12:00 FiO2 30 01/15/24 21:33 Laboratory Results - last 24 hr 01/15/24 14:50: WBC 6.8, RBC 5.75, Hgb 19.4 H, Hct 58.2 H, MCV 101.3 H, MCH 33.8 H, MCHC 33.4, RDW 14.7, Plt Count 232, MPV 7.3 L, Neut % (Auto) 74.5, Lymph % (Auto) 16.3, [place] % (Auto) 7.7, Eos % (Auto) 0.5, Baso % (Auto) 0.9, Neut # (Auto) 5.1, Lymph # (Auto) 1.1, [place] # (Auto) 0.5, Eos # (Auto) 0.0, Baso # (Auto) 0.1, PT 11.4, INR 1.02, D-Dimer < 0.25, Sodium 142, Potassium 4.5, Chloride 104, Carbon Dioxide 33 H, Anion Gap 9.5, BUN 47 H, Creatinine 1.10, Estimated Creat Clear 66, Estimated GFR 67, Est GFR ( Amer) 81, Glucose 130 H, Calcium 9.4, Magnesium 2.2, Total Bilirubin 1.0, AST 39, ALT 36, Alkaline Phosphatase 98, Troponin I < 0.01, NT-Pro-B Natriuret Pep 486 H, Total Protein 8.2 D, Albumin 4.7, Globulin 3.5 H, Albumin/Globulin Ratio 1.3, Procalcitonin 0.069, HIV 1&2 Antibody Rapid Nonreactive 01/15/24 14:57: VBG pH 7.26 L, VBG pCO2 71.5 H, VBG pO2 38.0, VBG HCO3 31.1 H, VBG Total CO2 33.3 H, VBG O2 Saturation 69.7, VBG Base Excess 4.0 H, VBG Lactic Acid 1.9 01/15/24 15:09: Chlamy pneumoniae PCR Not detected, Adenovirus (PCR) Not detected, B. pertussis DNA (PCR) Not detected, Coronavirus OC43 (PCR) Not detected, Coronavirus HKU1 (PCR) Not detected, Coronavirus 229E (PCR) Not detected, SARS-CoV-2 (PCR) Not detected, Coronavirus NL63 (PCR) Not detected, Human Metapneumovir PCR Not detected, Influenza A (H1) PCR Not detected, Influ A (H1N1/09) PCR Not detected, Influenza A (H3) PCR Not detected, Influenza Type A (PCR) Not detected, Influenza Type B (PCR) Not detected, M. pneumoniae (PCR) Not detected, Parainfluenza 1 (PCR) Not detected, Parainfluenza 2 (PCR) Not detected, Parainfluenza 3 (PCR) Not detected, Parainfluenza 4 (PCR) Detected A, RSV (PCR) Not detected, Entero/Rhino (PCR) Not detected 01/15/24 18:00: Troponin I < 0.01 01/15/24 18:26: Specimen Source Right brachial, O2 % 3lpm, ABG pH 7.31 L, ABG pCO2 59.5 H, ABG pO2 99.3, ABG HCO3 29.0 H, ABG Total CO2 30.8 H, ABG O2 Saturation 97, ABG Base Excess 2.6 H, Sukumar Test Acceptable 01/15/24 21:13: Troponin I < 0.01 01/15/24 21:28: Urine Color Dark yellow, Urine Appearance Clear, Urine pH 5.5, Ur Specific [place] >= 1.030, Urine Protein Trace, Urine Glucose (UA) Negative, Urine Ketones Negative, Urine Blood Negative, Urine Nitrate Negative, Urine Bilirubin Negative, Urine Urobilinogen 1.0, Ur Leukocyte Esterase Negative, Urine WBC 3-5, Ur Squamous Epith Cells 5-10, Urine Bacteria 1+, Hyaline Casts 10-20, Urine Mucus 1+ 01/15/24 22:06: POC Glucose 114 H 01/15/24 22:15: WBC 4.9 D, RBC 5.26, Hgb 17.7, Hct 52.4 H, MCV 99.7 H, MCH 33.7 H, MCHC 33.8, RDW 14.8, Plt Count 211, MPV 7.7, Neut % (Auto) 86.5 H, Lymph % (Auto) 8.0 L, [place] % (Auto) 4.9, Eos % (Auto) 0.1, Baso % (Auto) 0.5, Neut # (Auto) 4.2, Lymph # (Auto) 0.4 L, [place] # (Auto) 0.2, Eos # (Auto) 0.0, Baso # (Auto) 0.0, Total Counted 100, Neutrophils % (Manual) 89 H, Lymphocytes % (Manual) 10, Atypical Lymphs % 1.0, RBC Morphology Normal, Sodium 140, Potassium 4.4, Chloride 101, Carbon Dioxide 32 H, Anion Gap 11.4, BUN 49 H, Creatinine 1.20, Estimated Creat Clear 60, Estimated GFR 60, Est GFR ( Amer) 73, Glucose 127 H, Calcium 9.2, Magnesium 2.0, Total Bilirubin 0.8, AST 33, ALT 33, Alkaline Phosphatase 92, Troponin I < 0.01, Total Protein 7.6, Albumin 4.5, Globulin 3.1, Albumin/Globulin Ratio 1.5 01/16/24 05:28: WBC 7.3 D, RBC 5.07, Hgb 17.1, Hct 52.3 H, MCV 103.2 H, MCH 33.7 H, MCHC 32.6, RDW 14.6, Plt Count 213, MPV 7.6, Neut % (Auto) 76.6, Lymph % (Auto) 13.3, [place] % (Auto) 9.8 H, Eos % (Auto) 0.1, Baso % (Auto) 0.1, Neut # (Auto) 5.6, Lymph # (Auto) 1.0, [place] # (Auto) 0.7, Eos # (Auto) 0.0, Baso # (Auto) 0.0, Sodium 142, Potassium 3.9, Chloride 104, Carbon Dioxide 32 H, Anion Gap 9.9, BUN 49 H, Creatinine 1.40 H, Estimated Creat Clear 54, Estimated GFR 50 L, Est GFR ( Amer) 61, Glucose 104 H, Calcium 9.1, Magnesium 2.2, Total Bilirubin 0.8, AST 30, ALT 31, Alkaline Phosphatase 81, Total Protein 7.1, Albumin 4.2, Globulin 2.9, Albumin/Globulin Ratio 1.4 01/16/24 08:25: VBG pH 7.33, VBG pCO2 50.4, VBG pO2 63.9 H, VBG HCO3 26.1, VBG Total CO2 27.6 H, VBG O2 Saturation 91.7 H, VBG Base Excess 0.2, VBG Lactic Acid 1.6 I & O for Labs for Last 24 Hours: Intake & Output 01/14/24 01/15/24 01/16/24 01/17/24 23:59 23:59 23:59 23:59 Intake Total 360 / 740 2619.436 / 2619.436 480 / 480 Output Total 100 / 100 1350 / 1350 300 / 300 Balance 260 / 640 1269.436 / 1269.436 180 / 180 Weight 160 lb 166 lb 3 oz 169 lb 1 oz Intake & Output 01/13/24 01/14/24 01/15/24 01/16/24 23:59 23:59 23:59 23:59 Intake Total 360 / 740 1659.436 / 1659.436 Output Total 100 / 100 775 / 775 Balance 260 / 640 884.436 / 884.436 Weight 160 lb 166 lb 3 oz Microbiology Reports for the Last 24 Hours: Microbiology 01/15/24 21:30 Sputum - Expectorated Sputum Gram Stain - Final 01/15/24 21:30 Sputum - Expectorated Sputum Sputum Culture - Preliminary 01/15/24 15:01 Blood Blood Culture - Preliminary NO GROWTH AFTER 24 HOURS 01/15/24 14:50 Blood Blood Culture - Preliminary NO GROWTH AFTER 24 HOURS Microbiology 01/15/24 21:30 Sputum - Expectorated Sputum Gram Stain - Preliminary 01/15/24 21:30 Sputum - Expectorated Sputum Sputum Culture - Preliminary Constitutional: Present moderate distress Head: Present normocephalic and atraumatic ENT: Present normal exam, normal oropharynx and mucous membranes moist Neck: Present normal inspection and full ROM Respiratory: Present respiratory distress, rhonchi and able to speak in complete sentences; Absent prolonged expiratory phase or wheezes Cardiac: Present Irregularly Regular, S1/S2, Tachycardia and radial pulses present GI: Present soft and distention; Absent tenderness or guarding Skin: Present intact; Absent cyanosis or jaundice Neuro: Present alert, awake and oriented x 3 Extremities: Present normal inspection; Absent clubbing or cyanosis Psychiatric: Present normal affect and cooperative Assessment and Plan *Assessment and plan (1) Viral pneumonia: Status: Acute Category: Medical Code(s): J12.9 - Viral pneumonia, unspecified (2) Acute exacerbation of chronic obstructive pulmonary disease: Status: Acute Category: Medical Code(s): J44.1 - Chronic obstructive pulmonary disease with (acute) exacerbation Plan Mr. Flores is a 68-year-old male greater than [id number] smoking history, COPD, recurrent hypercarbic respiratory failure last seen in pulmonary clinic July 2023 after his hospital discharge for necrotizing pneumonia missed his clinic follow-up appointments and CT imaging presented to the hospital worsening respiratory distress and pulmonary was called for further evaluation and pieter anderson. Afebrile. Hemodynamically stable. Chest x-ray no dense consolidative/infiltrates noted. No evidence of leukocytosis. Blood gas upon admission mild hypercarbic respiratory failure, subsequent venous blood gases normalized. PCR positive panel positive for parainfluenza virus. On initial examination patient does not appear to be in any respiratory distress. No significant wheezing noted on auscultation. On 2 L saturating 95% and above. Interval update: No acute respiratory vents overnight. Stable oxygen requirements. Plan: Continue Trelegy 100 inhaler along with DuoNebs every 6 as needed Continue prednisone 40 mg daily x 5 days Will hold off on initiating antibiotics at this point of time Continue oxygen supplementation to maintain O2 saturation below 89% and above, wean as tolerated. Currently on 2 L with sats at 90 to 95%.. Patient admits using 5 L at home advised to wean his oxygen supplementation to maintain O2 saturation goal of 89 to 95%. Thank you for involving pulmonary in this patient care will follow the patient in 2 to 3 weeks post discharge.
[2024-01-17] MEDS: ASPIRIN EC 81MG TABLET 81 MG PO (10:21)
--- NOTE | 2024-01-17 11:17 | EXP.DC.SUM ---
General Admission date:: 01/15/24 HPI HPI HPI: Mr. Flores is a 68-year-old male with significant history of COPD, pulmonary emboli, CAD, hyperlipidemia, chronic respiratory failure on oxygen. He reports worsening cough and shortness of breath over the past 2 to 3 days. States his significant other was sick last week, he began not feeling well this week. Presented to the ER because of worsening shortness of breath. States he had seen his PCP last week and was diagnosed with pneumonia and put back on antibiotics and steroids. No improvement however in symptoms. Wearing 5 L at home. On arrival to the ER, EMS reports he was found to be hypoxic at home. Brought to the ER for evaluation. Denies fever, chills, nausea or vomiting. Initiated on nebulizers in the ER. Initial workup concerning for hypercapnia with respiratory acidosis. Started on BiPAP. Medicine consulted for admission On arrival to the floor, still having significant respiratory distress put on nasal cannula at this time. Stating he does not want to wear BiPAP. Talked about the necessity for BiPAP for a while, patient agreeable. Would like to eat. Overall feeling a little bit better. Alert and oriented x 3. Hospital Course Hospital Course Hospital Course: Patient patient is a 68-year-old male with past medical history of CAD, pulmonary embolism on Eliquis, COPD on 4 to 6 L nasal cannula at home, hypertension, hyperlipidemia who presents to the hospital due to shortness of breath. Shortness of breath is gotten worse over the past few days. His significant other was sick last week and now he has had increased cough and dyspnea. Discussed case with ER physician, request admission for hypercapnic respiratory failure. I agreed to admit for further management. Continue to wear BiPAP as he is responding appropriately with improvement in pH. Problems addressed as follows: Acute hypoxic and hypercapnic respiratory failure COPD exacerbation Parainfluenza infection - Initial blood gas with VBG pH 7.26, pCO2 71. Respiratory panel positive for parainfluenza. - Clinically improved with intermittent Bipap weaned to 3L, Duoneb and Pulmicort breathing treatmennts, steroids. Antibiotics initially given by ED but not continued given low suspicion for bacterial infection. - Discharged with Trelegy 100 and prednisone 40mg for 3 more days. - Will follow-up with pulmonology within 1 week. #Afib with RVR - Started and weaned off amiodorone ip. Now normal sinus rhythm. - Increased bisoprolol to 10mg. - Started diltiazem 120mg ER. Discontinued amlodipone. - Continue Eliquis 5mg BID, h/o or PE. - Will follow-up with cardiology within 1 week. Exam Data for Last 24 hours Vital signs and Labs for Last 24 Hours: Temp Pulse Resp BP Pulse Ox O2 Del Method O2 Flow Rate 97.6 F 61 20 114/72 99 Room Air 2 01/17/24 07:52 01/17/24 09:15 01/17/24 07:52 01/17/24 07:52 01/17/24 07:52 01/17/24 08:59 01/17/24 08:00 FiO2 28 01/16/24 19:03 Laboratory Results - last 24 hr 01/15/24 14:50: Hepatitis C Antibody Non reactive 01/17/24 05:21: WBC 6.2, RBC 4.59 L, Hgb 15.4, Hct 47.7, MCV 103.9 H, MCH 33.7 H, MCHC 32.4, RDW 14.7, Plt Count 178, MPV 7.7, Neut % (Auto) 67.0, Lymph % (Auto) 23.2, [place] % (Auto) 8.9, Eos % (Auto) 0.6, Baso % (Auto) 0.2, Neut # (Auto) 4.2, Lymph # (Auto) 1.5, [place] # (Auto) 0.6, Eos # (Auto) 0.0, Baso # (Auto) 0.0, Sodium 141, Potassium 4.3, Chloride 108 H, Carbon Dioxide 32 H, Anion Gap 5.3, BUN 49 H, Creatinine 1.40 H, Estimated Creat Clear 55, Estimated GFR 50 L, Est GFR ( Amer) 61, Glucose 104 H, Calcium 8.4, Total Bilirubin 0.6, Direct Bilirubin 0.1, Conjugated Bilirubin 0.0, Indirect Bilirubin 0.5, Unconjugated Bilirubin 0.4, AST 22 D, ALT 21 D, Alkaline Phosphatase 72, Total Protein 6.1 L, Albumin 3.5 D, Triglycerides 82, Cholesterol 105 L, LDL Cholesterol Direct 36.36 L, VLDL Cholesterol 16, HDL Cholesterol 46, Cholesterol/HDL Ratio 2.3 I & O for Last 24 hours: Intake & Output 01/14/24 01/15/24 01/16/24 01/17/24 23:59 23:59 23:59 23:59 Intake Total 360 / 740 2619.436 / 2619.436 480 / 480 Output Total 100 / 100 1350 / 1350 300 / 300 Balance 260 / 640 1269.436 / 1269.436 180 / 180 Weight 72.575 kg 75.381 kg 76.685 kg Microbiology Reports for the Last 24 Hours: Microbiology 01/15/24 21:30 Sputum - Expectorated Sputum Gram Stain - Final 01/15/24 21:30 Sputum - Expectorated Sputum Sputum Culture - Preliminary 01/15/24 15:01 Blood Blood Culture - Preliminary NO GROWTH AFTER 24 HOURS 01/15/24 14:50 Blood Blood Culture - Preliminary NO GROWTH AFTER 24 HOURS Constitutional Constitutional: no acute distress *Routine HEENT Exam Head: Present normocephalic Eye: Present EOMI and PERRL ENT: Present mucous membranes moist *Routine Neck Exam Neck: Present supple; Absent lymphadenopathy *Routine Respiratory Exam Respiratory: Present CTA bilaterally *Routine Cardiovascular Exam Cardiovascular: Present RRR *Routine Abdominal Exam Abdominal: Present soft and normoactive bowel sounds; Absent tenderness *Routine Extremities Exam Extremities: Absent cyanosis, clubbing or edema *Routine Skin Exam Skin: Present warm; Absent rash *Routine Neurological Exam Neurological: Present alert and oriented X3 Results Data Completed and Pending Labs on day of discharge: Labs from last 24 hours 01/17/24 01/15/24 05:21 14:50 WBC 6.2 RBC 4.59 L Hgb 15.4 Hct 47.7 MCV 103.9 H MCH 33.7 H MCHC 32.4 RDW 14.7 Plt Count 178 MPV 7.7 Neut % (Auto) 67.0 Lymph % (Auto) 23.2 [place] % (Auto) 8.9 Eos % (Auto) 0.6 Baso % (Auto) 0.2 Neut # (Auto) 4.2 Lymph # (Auto) 1.5 [place] # (Auto) 0.6 Eos # (Auto) 0.0 Baso # (Auto) 0.0 Sodium 141 Potassium 4.3 Chloride 108 H Carbon Dioxide 32 H Anion Gap 5.3 BUN 49 H Creatinine 1.40 H Estimated Creat Clear 55 Estimated GFR 50 L Est GFR ( Amer) 61 Glucose 104 H Calcium 8.4 Total Bilirubin 0.6 Direct Bilirubin 0.1 Conjugated Bilirubin 0.0 Indirect Bilirubin 0.5 Unconjugated Bilirubin 0.4 AST 22 D ALT 21 D Alkaline Phosphatase 72 Total Protein 6.1 L Albumin 3.5 D Triglycerides 82 Cholesterol 105 L LDL Cholesterol Direct 36.36 L VLDL Cholesterol 16 HDL Cholesterol 46 Cholesterol/HDL Ratio 2.3 Hepatitis C Antibody Non reactive Preliminary micro results at discharge 01/15/24 21:30 Sputum Culture - Preliminary Sputum - Expectorated Sputum 01/15/24 15:01 Blood Culture - Preliminary Blood NO GROWTH AFTER 24 HOURS 01/15/24 14:50 Blood Culture - Preliminary Blood NO GROWTH AFTER 24 HOURS DS: Diagnosis Discharge Diagnosis (1) Viral pneumonia: Status: Acute Code(s): J12.9 - Viral pneumonia, unspecified (2) Acute exacerbation of chronic obstructive pulmonary disease: Status: Acute Code(s): J44.1 - Chronic obstructive pulmonary disease with (acute) exacerbation Meds Home Medications and Allergies Home Medications ?Medication ?Instructions ?Recorded ?Confirmed ?Type albuterol sulfate 90 mcg/actuation 1 - 2 puffs inhalation Q4HP PRN 03/24/20 01/15/24 History aerosol inhaler Shortness Of Breath Or Wheezing escitalopram oxalate 20 mg tablet 20 mg PO DAILY 03/24/20 01/15/24 History aspirin 81 mg tablet,delayed 81 mg PO DAILY 05/22/23 01/15/24 History release fluticasone fur. 100 mcg-umeclid 1 inh inhalation DAILY 05/22/23 01/15/24 History 62.5 mcg-vilant 25 mcg inhalat.powder (Trelegy Ellipta) folic acid 1 mg tablet 1 mg PO DAILY 05/22/23 01/15/24 History apixaban 5 mg tablet (Eliquis) 5 mg PO BID 07/07/23 01/15/24 History furosemide 20 mg tablet 20 mg PO MOWEFR 07/07/23 01/15/24 History ipratropium 0.5 mg-albuterol 3 mg 3 ml inhalation Q6RT #0 mL 07/12/23 01/16/24 Rx (2.5 mg base)/3 mL nebulization soln atorvastatin 40 mg tablet 40 mg PO HS 01/16/24 01/16/24 History bisoprolol fumarate 5 mg tablet 10 mg (2 x 5 mg) PO DAILY 30 days 01/17/24 Rx #60 tabs diltiazem HCl 120 mg 120 mg PO DAILY 30 days #30 caps 01/17/24 Rx capsule,extended release 24 hr prednisone 20 mg tablet 40 mg (2 x 20 mg) PO DAILY 3 days 01/17/24 Rx #6 tabs New Prescriptions to Start Prescriptions: bisoprolol fumarate Eloy Aaron diltiazem HCl Eloy Aaron prednisone Eloy Aaron Allergies Allergy/AdvReac Type Severity Reaction Status Date / Time erythromycin base Allergy Unknown NA-NAUSEA/V Verified 01/15/24 15:07 [ERYTHROMYCIN BASE] OMITING Discharge Plan Disposition Patient Disposition: Home, Self-Care Condition: Critical Discharge Order Discharge Orders: Discharge Order (Routine); Ordered 01/17/24 Ordered By: Eloy Aaron Follow up Plan Follow up with: Jana Armendariz [Referring] - 01/24/24 1:30 pm Bryan Ramirez MD [Physician] - 01/31/24 1:20 pm Filipe Smith MD [Staff Physician] - 01/31/24 2:15 pm Prescriptions/Medication Reconciliation: New prednisone 20 mg Tablet 40 mg PO DAILY 3 Days Qty: 6 0RF bisoprolol fumarate 5 mg Tablet 10 mg PO DAILY 30 Days Qty: 60 0RF diltiazem HCl 120 mg Capsule,Extended Release 24hr 120 mg PO DAILY 30 Days Qty: 30 0RF Continued folic acid 1 mg tablet 1 mg PO DAILY Patient Comments: TAKE ONE TABLET BY MOUTH DAILY AT 9 AM aspirin 81 mg tablet,delayed release (DR/EC) 81 mg PO DAILY Trelegy Ellipta 100-62.5-25 mcg blister with device 1 inh INHALATION DAILY albuterol sulfate 8.5 GM HFA aerosol inhaler 1 - 2 puffs inhalation Q4HP PRN (Reason: Shortness Of Breath Or Wheezing) escitalopram oxalate 20 MG tablet 20 mg PO DAILY furosemide 20 mg tablet 20 mg PO MOWEFR Patient Comments: TAKE ONE TABLET BY MOUTH ONCE ON MONDAY, MONDAY, AND MONDAY (VIAL) Eliquis 5 mg Tablet 5 mg PO BID ipratropium-albuterol 0.5 mg-3 mg(2.5 mg base)/3 mL Solution For Nebulization 3 ml inhalation Q6RT Qty: 0 0RF atorvastatin 40 mg tablet 40 mg PO HS Patient Comments: Take 1 tablet every day by oral route at bedtime. Discontinued bisoprolol fumarate 5 mg tablet 5 mg PO DAILY lisinopril-hydrochlorothiazide 20-12.5 mg tablet 12.5 tab PO AM Patient Comments: TAKE ONE TABLET BY MOUTH DAILY AT 9 AM amlodipine 10 mg tablet 5 mg PO AM Patient Comments: TAKE ONE TABLET BY MOUTH DAILY AT 9 AM Problem Reconciliation Problems Reviewed?: Yes Patient Discharge Instructions ACTIVITY: Continue current activity DIET: cardiac Patient Instructions: DI for Pneumonia -- Adult, DI for Atrial Fibrillation, Respiratory Failure Print Language: [place]amanian Providers Primary Care Provider: Provider,Referral Admit Provider: Sunday King Attending Provider: Sunday King
--- NOTE | 2024-01-18 11:39 | CARE MANAGER ---
Called and spoke with patient regarding recent discharge. Patient stated he is doing well, has started new medication prescribed at discharge and was aware of scheduled f/u appts. No concerns voiced at time of call.
== END 2024-01-17 12:50 | disposition home or self-care (01) | DRG 189 ==
LOC: ER 16:01 → 2ND 16:37
PROVIDERS: Nurse Practitioner Acute Care; Nurse Practitioner Family; Physician Assistant; Student in an Organized Health Care Education/Training Program; Admitting Provider Internal Medicine Adolescent Medicine; Emergency Provider Emergency Medicine; Visit Provider Internal Medicine Adolescent Medicine
DX: J96.21 Acute and chronic respiratory failure with hypoxia (principal); J12.9 Viral pneumonia, unspecified; J44.1 Chronic obstructive pulmonary disease with (acute) exacerbation; N17.9 Acute kidney failure, unspecified; I50.32 Chronic diastolic (congestive) heart failure; J96.22 Acute and chronic respiratory failure with hypercapnia; I25.10 Atherosclerotic heart disease of native coronary artery without angina pectoris; F17.210 Nicotine dependence, cigarettes, uncomplicated; F41.9 Anxiety disorder, unspecified; E78.5 Hyperlipidemia, unspecified; F10.21 Alcohol dependence, in remission; Z99.81 Dependence on supplemental oxygen; Z79.899 Other long term (current) drug therapy; I27.20 Pulmonary hypertension, unspecified; Z86.711 Personal history of pulmonary embolism; Z79.01 Long term (current) use of anticoagulants; I11.0 Hypertensive heart disease with heart failure; I48.91 Unspecified atrial fibrillation; B34.8 Other viral infections of unspecified site
CPT/HCPCS: 36415; 71045; 80048; 80053; 80061; 80076; 81001; 82803; 82962; 83735; 83880; 84145; 84484; 85007; 85025; 85027; 85378; 85610; 86803; 87040; 87070; 87077; 87205; 87265; 87389; 87486; 87581; 87632; 87635; 93005; 93306; 94640; 94761; 99291; J0282; J1100; J1956; J2919; J7060; J7614; J7620; J7644

== ENCOUNTER 2024-05-27 07:46 | Inpatient (IN) | payer MEDICARE, SELFPAY ==
[2024-05-27] VITALS (48 sets, daily range): BP systolic 79–150; BP diastolic 49–99; PULSE 68–118; RESP 21–39; TEMP 36.3–36.9; O2SAT 91–97; BMI 26.5; BMI 25.7
--- NOTE | 2024-05-27 07:40 | ECG_ITS ---
APPROVED REPORT Exam: Resting ECG HR:118 bpm ECG Measurements Heart Rate 118 AXES MA 148 P 75 QRSd 85 QRS 73 QT 307 T 77 QTc 377 Conclusion SINUS TACHYCARDIA ABNORMAL RHYTHM ECG No STEMI Electronically signed by : LINDSAY ESCALANTE, 05/28/2024 06:50:07
--- NOTE | 2024-05-27 07:48 | ED_ITS ---
Discharge Plan Disposition Patient Disposition: Admitted Condition: Fair Clinical Impressions Clinical Impression: Acute hypercapnic respiratory failure, Acute exacerbation of chronic obstructive pulmonary disease Discharge ED Provider: Godwin Wong Adult HPI General Chief complaint: Shortness of Breath/Dyspnea Stated complaint: soa Time Seen by Provider: 05/27/24 07:47 Mode of Arrival: EMS Source of Information: Patient Limitations: No Limitations History of Present Illness HPI narrative: Glynn Flores is a 68M with a past medical history of COPD on 4 to 5 L nasal cannula at baseline, recurrent pneumonia, coronary artery disease, hyperlipidemia, alcohol abuse, smoking, who presents to the emergency department from home via EMS for concern for worsening shortness of breath. Patient states that he has had increased work of breathing and shortness of breath at home over the last 2 days. He has not had to increase his home oxygen requirements and is currently on 4 L nasal cannula. He reports an increased productive cough intermittently with small amounts of blood. He reports taking a DuoNeb treatment at home prior to EMS arrival. EMS administered an additional DuoNeb treatment as well as 125 mg of Solu-Medrol. Patient denies any fevers or chest pain. He denies any leg swelling. He does report a history of blood clots but notes that he is currently on Eliquis. Related Data Home Medications ?Medication ?Instructions ?Recorded ?Confirmed escitalopram oxalate 20 mg tablet 20 mg PO DAILY 03/24/20 05/27/24 aspirin 81 mg tablet,delayed 81 mg PO DAILY 05/22/23 05/27/24 release fluticasone fur. 100 mcg-umeclid 1 inh inhalation DAILY 05/22/23 05/27/24 62.5 mcg-vilant 25 mcg inhalat.powder (Trelegy Ellipta) folic acid 1 mg tablet 1 mg PO DAILY 05/22/23 05/27/24 apixaban 5 mg tablet (Eliquis) 5 mg PO BID 07/07/23 05/27/24 furosemide 20 mg tablet 20 mg PO MOWEFR 07/07/23 05/27/24 atorvastatin 40 mg tablet 40 mg PO HS 01/16/24 05/27/24 bisoprolol fumarate 5 mg tablet 5 mg PO DAILY 05/27/24 05/27/24 prednisone 5 mg tablet 5 mg PO MOWEFR 05/27/24 05/27/24 Previous Rx's ?Medication ?Instructions ?Recorded ipratropium 0.5 mg-albuterol 3 mg 3 ml inhalation Q6RT #0 mL 07/12/23 (2.5 mg base)/3 mL nebulization soln Allergies Allergy/AdvReac Type Severity Reaction Status Date / Time erythromycin base Allergy Unknown NA-NAUSEA/V Verified 05/27/24 16:19 (ERYTHROMYCIN BASE) OMITING PFSH PFSH Disclaimer: The information contained in this section may have been updated after the patient was seen, as this information can be updated by other users. Medical History Non-ST elevation SD (NSTEMI) Lung mass Viral pneumonia Ectopic atrial rhythm Atrial fibrillation with RVR Bilateral pulmonary embolism COPD mixed type Pulmonary emphysema Smoking greater than 30 pack years Necrotizing pneumonia Healthcare-associated pneumonia Pulmonary embolism Acute respiratory failure with hypoxia and hypercarbia Cough CAD in [place] artery Hilar lymphadenopathy Nodule of right lung Shortness of Breath Atypical angina Coronary artery calcification seen on CAT scan Pneumonia CAP (community acquired pneumonia) Alcohol use disorder, severe, in early remission Tobacco dependence COPD (chronic obstructive pulmonary disease) Hyperlipidemia Hypertension Obesity (BMI 30-39.9) Surgical History History of colonoscopy Family History Mother Lung cancer Father COPD (chronic obstructive pulmonary disease) Social History (Updated 05/27/24 @ 16:30 by Caroline Ybarra RN) Smoking Status: Current every day smoker tobacco type: cigarettes packs per day: 2 second hand exposure: No alcohol intake: current alcohol intake frequency: 0-2 drinks per day current occupational status: disabled Travel in the last 8 weeks: None household members: significant other caffeine: No Have you lived/traveled outside [place] in past 30 days?: No Contact w/someone who lives/traveled outside US past 30 days?: No Exposure to someone with infectious disease in past 14 days?: No Do you have a fever (greater than 100.4 F or 38 C)?: No Have you tested positive for COVID-19: No Exposed to someone with COVID-19 in past 14 days?: No Do you have a sore throat?: No Do you have a cough?: No Do you have any weakness?: No Do you have any diarrhea?: No Are you experiencing any unusual bleeding?: No Do you have any muscle aches/pain?: No Do you have any abdominal pain?: No Are you experiencing loss of taste or smell?: No Other Medical History Have you received the Flu Vaccine for this season: No Have you received the Pneumonia Vaccine: No ROS Obtained: Yes Systems reviewed as appropriate & no additional complaints except as documented Physical Exam General General appearance: alert Comment: Increased work of breathing with nasal cannula in place on 4 L Head Head exam: atraumatic Eye Eye exam: Present normal appearance ENT ENT exam: Present normal external ear exam Neck Neck exam: Present full ROM Chest Chest inspection: Present symmetric chest wall rise Respiratory Respiratory exam: Present normal lung sounds bilaterally, respiratory distress (Increased respiratory effort), wheezes (Diffuse expiratory wheezing), accessory muscle use and prolonged expiratory phase; Absent stridor Cardiovascular Cardiovascular exam: Present normal rhythm and tachycardia Abdominal Exam Abdominal exam: Present soft; Absent tenderness or guarding exam: Present deferred Extremities Exam Extremities exam: Present normal inspection Back Exam Back exam: Present normal inspection Neurological Exam Neurological exam: Present alert and oriented X3 Psychiatric Psychiatric exam: Present normal affect Skin Skin exam: Present warm and dry Medical Decision Making Medical Records Screening: Per USPSTF and CDC recommendations, given the prevalence of disease in our region, it is our hospital?s policy to screen for HIV and viral Hepatitis for all patients aged 18 and over and those with ongoing risk factors. Abdias Inquiry Pt receiving controlled substance: No Vital Signs: 05/27/24 07:50 05/27/24 08:00 05/27/24 08:25 Temperature 97.7 F Temperature Source Oral Pulse Rate 106 H Pulse Rate [Left Radial] 104 H Respiratory Rate 29 H 27 H Blood Pressure 92/49 L Blood Pressure [Right Arm] 114/59 L Blood Pressure Mean Blood Pressure Mean [Right Arm] 77 02 Sat by Pulse Oximetry 97 96 Oxygen Delivery Method Nasal Cannula Nasal Cannula Oxygen Flow Rate (LPM) 4 4 Fraction of Inspired Oxygen 30 05/27/24 08:25 05/27/24 08:25 05/27/24 08:30 Temperature Temperature Source Pulse Rate 113 H 118 H 113 H Pulse Rate [Left Radial] Respiratory Rate 31 H Blood Pressure 92/65 L Blood Pressure [Right Arm] Blood Pressure Mean Blood Pressure Mean [Right Arm] 02 Sat by Pulse Oximetry 94 L Oxygen Delivery Method BiPAP Oxygen Flow Rate (LPM) Fraction of Inspired Oxygen 05/27/24 09:00 05/27/24 09:34 05/27/24 09:45 Temperature Temperature Source Pulse Rate 115 H 102 H 95 H Pulse Rate [Left Radial] Respiratory Rate 25 H 29 H 27 H Blood Pressure 98/62 L 81/57 L 79/55 L Blood Pressure [Right Arm] Blood Pressure Mean 71 Blood Pressure Mean [Right Arm] 02 Sat by Pulse Oximetry 91 L 93 L 92 L Oxygen Delivery Method BiPAP Oxygen Flow Rate (LPM) Fraction of Inspired Oxygen 05/27/24 09:46 05/27/24 10:00 05/27/24 10:30 Temperature Temperature Source Pulse Rate 95 H 94 H 95 H Pulse Rate [Left Radial] Respiratory Rate 25 H 29 H 32 H Blood Pressure 95/66 L 101/68 L 110/71 Blood Pressure [Right Arm] Blood Pressure Mean Blood Pressure Mean [Right Arm] 02 Sat by Pulse Oximetry 91 L 94 L 93 L Oxygen Delivery Method BiPAP BiPAP BiPAP Oxygen Flow Rate (LPM) Fraction of Inspired Oxygen 05/27/24 10:31 05/27/24 11:00 05/27/24 11:15 Temperature Temperature Source Pulse Rate 95 H 88 85 Pulse Rate [Left Radial] Respiratory Rate 31 H 27 H 26 H Blood Pressure 126/85 132/76 128/84 Blood Pressure [Right Arm] Blood Pressure Mean 103 Blood Pressure Mean [Right Arm] 02 Sat by Pulse Oximetry 92 L 94 L 94 L Oxygen Delivery Method BiPAP BiPAP Oxygen Flow Rate (LPM) Fraction of Inspired Oxygen 05/27/24 11:30 05/27/24 11:45 05/27/24 12:00 Temperature Temperature Source Pulse Rate 85 87 86 Pulse Rate [Left Radial] Respiratory Rate 26 H 28 H 29 H Blood Pressure 131/79 143/84 H 133/85 Blood Pressure [Right Arm] Blood Pressure Mean 102 Blood Pressure Mean [Right Arm] 02 Sat by Pulse Oximetry 94 L 94 L 95 Oxygen Delivery Method BiPAP BiPAP Oxygen Flow Rate (LPM) Fraction of Inspired Oxygen 05/27/24 12:06 05/27/24 12:15 05/27/24 12:15 Temperature Temperature Source Pulse Rate 93 H 84 Pulse Rate [Left Radial] Respiratory Rate 29 H Blood Pressure 130/84 Blood Pressure [Right Arm] Blood Pressure Mean Blood Pressure Mean [Right Arm] 02 Sat by Pulse Oximetry 94 L Oxygen Delivery Method BiPAP BiPAP Oxygen Flow Rate (LPM) Fraction of Inspired Oxygen 30 05/27/24 12:18 05/27/24 12:30 05/27/24 12:30 Temperature Temperature Source Pulse Rate 85 Pulse Rate [Left Radial] Respiratory Rate 24 Blood Pressure 141/89 H Blood Pressure [Right Arm] Blood Pressure Mean Blood Pressure Mean [Right Arm] 02 Sat by Pulse Oximetry 92 L Oxygen Delivery Method BiPAP BiPAP Oxygen Flow Rate (LPM) Fraction of Inspired Oxygen 30 30 Lab Data Lab Results 05/27/24 07:43: WBC 5.9, RBC 4.56 L, Hgb 14.5, Hct 46.4, MCV 101.8 H, MCH 31.8 H , MCHC 31.3 L, RDW 12.6, Plt Count 180, MPV 8.7, Neut % (Auto) 83.8 H, Lymph % (Auto) 7.1 L, Gilchrist % (Auto) 8.1, Eos % (Auto) 0.2, Baso % (Auto) 0.3, Neut # (Auto) 5.0, Lymph # (Auto) 0.4 L, [place]christ # (Auto) 0.5, Eos # (Auto) 0.0, Baso # (Auto) 0.0, Sodium 137, Potassium 4.0, Chloride 89 L, Carbon Dioxide 40 H, Anion Gap 12.0, BUN 18, Creatinine 1.10, Estimated Creat Clear 76, Estimated GFR 67, Est GFR ( Amer) 81, Glucose 130 H, Calcium 8.5, Total Bilirubin 0.4, AST 38, ALT 26, Alkaline Phosphatase 99, Troponin I 0.02, NT-Pro-B Natriuret Pep 624 H, Total Protein 7.8 D, Albumin 4.5, Globulin 3.3 H, Albumin/Globulin Ratio 1.4 05/27/24 07:59: SARS-CoV-2 (PCR) Not detected, Influenza A Untype (PCR) Not detected, Influenza Type B (PCR) Not detected 05/27/24 08:04: VBG pH 7.11 L, VBG pCO2 113.8 H, VBG pO2 36.7, VBG HCO3 34.9 H, VBG Total CO2 38.4 H, VBG O2 Saturation 62.1, VBG Base Excess 5.4 H, VBG Lactic Acid 2.1 H 05/27/24 09:51: VBG pH 7.23 L, VBG pCO2 86.1 H, VBG pO2 48.2 H, VBG HCO3 34.9 H, VBG Total CO2 37.6 H, VBG O2 Saturation 82.3 H, VBG Base Excess 7.3 H, VBG Lactic Acid 2.4 H 05/27/24 10:50: VBG pH 7.20 L, VBG pCO2 89.4 H, VBG pO2 45.4 H, VBG HCO3 34.1 H, VBG Total CO2 36.8 H, VBG O2 Saturation 77.2 H, VBG Base Excess 6.0 H, VBG Lactic Acid 3.1 H 05/27/24 11:03: Troponin I 0.03 05/27/24 07:43 05/27/24 07:43 Orders (Tests/Meds): ED MEDICATIONS Generic Name Dose Route Start Last Admin Trade Name Freq PRN Reason Stop Dose Admin Albuterol/Ipratropium 3 ml 05/27/24 14:00 05/27/24 12:57 Ipratropium/Albuterol 3 Ml Neb IH 06/26/24 13:59 3 ml Q4RT OLIVER Administration Budesonide 0.5 mg 05/27/24 18:00 Budesonide 0.5mg/2ml Neb IH 06/26/24 17:59 BIDRT OLIVER Doxycycline Hyclate 100 mg/ 250 mls @ 166.667 mls/hr 05/27/24 14:00 05/27/24 14:51 Sodium Chloride IV 06/06/24 13:59 166.667 mls/hr Q12H OLIVER Administration Methylprednisolone Sodium Succinate 60 mg 05/27/24 21:00 Methylprednisolone Sod Succ 125mg Vial IV 06/26/24 20:59 BID OLIVER Sodium Chloride 10 ml 05/27/24 13:35 Sodium Chloride 0.9% 10ml Flush Syringe IV 06/26/24 13:34 NEEDED PRN Maintain IV Site Discontinued Medications Generic Name Dose Route Start Last Admin Trade Name Freq PRN Reason Stop Dose Admin Albuterol Sulfate 7.5 mg 05/27/24 14:05 05/27/24 15:56 Albuterol 0.083% 2.5 Mg/3 Ml Counts include 234 beds at the [facility] 05/27/24 16:06 2.5 mg Q1H OLIVER Administration Albuterol/Ipratropium 3 ml 05/27/24 07:52 05/27/24 08:23 Ipratropium/Albuterol 3 Ml Counts include 234 beds at the [facility] 05/27/24 07:53 3 ml ONCE ONE Administration Albuterol/Ipratropium 6 ml 05/27/24 08:26 05/27/24 08:26 Ipratropium/Albuterol 3 Ml Counts include 234 beds at the [facility] 05/27/24 08:27 6 ml ONCE ONE Administration Magnesium Sulfate 2 gm in 50 mls @ 50 mls/hr 05/27/24 07:52 05/27/24 08:23 Magnesium Sulfate 2gm/50ml Premix IV 05/27/24 08:51 50 mls/hr ONCE ONE Administration Lactated Ringer's 1,000 mls @ 999 mls/hr 05/27/24 09:38 05/27/24 09:39 Lactated Ringer's 1000 Ml Bag IV 05/27/24 10:38 999 mls/hr .Q1H1M ONE Administration Lorazepam 0.5 mg 05/27/24 09:03 05/27/24 09:18 Lorazepam 2mg/Ml Vial IV 05/27/24 09:04 0.5 mg ONCE ONE Administration Sodium Chloride 10 ml 05/27/24 09:03 Sodium Chloride 0.9% 10ml Vial IV 06/26/24 09:02 NEEDED PRN to Dilute Lorazepam inj ORDERS Category Date Time Status Pulmonology Consult [Consult to Pulmonology] [CONS] Cons 05/27/24 12:10 Active Routine CXR 2 view (NOT portable) [XR chest 2V] Stat Exams 05/27/24 07:52 Completed BNP [NT Pro Brain Natriuretic Pep.] Stat Lab 05/27/24 07:43 Completed CBC w/Auto Diff [Complete Blood Count Auto Diff] Stat Lab 05/27/24 07:43 Completed CMP [Comprehensive Metabolic Panel] Stat Lab 05/27/24 07:43 Completed Complete Blood Count Auto Diff AMLAB Lab 05/28/24 06:00 Ordered Complete Blood Count Auto Diff AMLAB Lab 05/29/24 06:00 Ordered Complete Blood Count Auto Diff AMLAB Lab 05/30/24 06:00 Ordered Complete Blood Count Auto Diff AMLAB Lab 05/31/24 06:00 Ordered Comprehensive Metabolic Panel AMLAB Lab 05/28/24 06:00 Ordered Comprehensive Metabolic Panel AMLAB Lab 05/29/24 06:00 Ordered Comprehensive Metabolic Panel AMLAB Lab 05/30/24 06:00 Ordered Comprehensive Metabolic Panel AMLAB Lab 05/31/24 06:00 Ordered Magnesium AMLAB Lab 05/28/24 06:00 Ordered Magnesium AMLAB Lab 05/29/24 06:00 Ordered Magnesium AMLAB Lab 05/30/24 06:00 Ordered Rapid PCR Covid and Flu A/B Stat Lab 05/27/24 07:59 Completed Troponin I Q3H Lab 05/27/24 11:03 Completed Troponin I Q3H Lab 05/27/24 14:15 Completed Troponin I Stat Lab 05/27/24 07:43 Completed Blood Culture Stat Micro 05/27/24 09:50 Received VBG [Venous Blood Gas] Stat RT 05/27/24 08:04 Completed VBG [Venous Blood Gas] Stat RT 05/27/24 09:51 Completed VBG [Venous Blood Gas] Stat RT 05/27/24 10:50 Completed Medical Decision Narrative: Glynn is a 68-year-old male with past medical history of COPD on 4 L nasal cannula at baseline, recurrent pneumonia, hypertension, hyperlipidemia, alcohol use, tobacco use, coronary artery disease who presents to the emergency department for shortness of breath. Patient reports worsening shortness of breath over the last 2 days. He has not had increase his oxygen requirements at home. He denies any chest pain or fever. He does report increased productive cough occasionally with bloody sputum. Patient arrives to the emergency department via EMS on his baseline 4 L nasal cannula at 97% SpO2. Physical exam, stated above, revealed a chronically ill-appearing male who is in mild distress with increased work of breathing. He is tachypneic. He has diffuse expiratory wheezing bilaterally. No rales are appreciated. He is mildly tachycardic, however this could be secondary to the 2 DuoNeb treatments that he received prior to arrival. He is normotensive with blood pressure 114/59. Differential diagnosis includes, but is not limited to: COPD exacerbation, pneumonia, ACS, pulmonary embolism, CHF, viral respiratory illness, among others. Patient's workup in the emergency department included: 2 view chest x-ray, CMP, CBC, VBG, COVID/Flu/RSV Patient's VBG demonstrated pH of 7.105 with significantly elevated pCO2 of 113.8, lactate normal at 2.06, bicarb elevated at 34.9. Given significantly elevated pCO2 in the setting of respiratory acidosis, will place patient on BiPAP and do a continuous DuoNeb treatment. Lab work otherwise with no leukocytosis, no anemia, electrolytes grossly within normal limits, lactate mildly elevated at 2.4, BNP mildly elevated at 624 (appears to be baseline) negative flu and COVID. Chest x-ray interpreted by me personally. No focal consolidations or pneumothoraces. Patient has hyperexpanded lungs consistent with emphysema and flattening of the diaphragm. See radiology report for details Patient seen on BiPAP for multiple hours in the emergency department but had mild improvement in his pH. His pCO2 did improve to 89.4, however his baseline appears to be in the 40s and 50s. Given his continued respiratory acidosis despite BiPAP, discussed the patient's case with Dr. King and patient was subsequently admitted to the ICU for further management of his hypercapnic respiratory failure secondary to COPD exacerbation Critical Care Critical Care Time Critical Care Time: Yes Attestation: On 05/27/24, the high probability of a clinically significant, sudden or life threatening deterioration of the following system(s) required my full and direct attention, intervention and personal management. The time I documented below is in addition to time spent performing reported procedures but includes the following listed in this critical care notation. Total Time Total Critical Care Time: 45
--- NOTE | 2024-05-27 07:52 | XR_ITS ---
FINAL REPORT CLINICAL HISTORY: Cough, COPD, possible pneumonia COMPARISON: 09/19/2023 FINDINGS: There are underlying emphysematous changes. Mild scarring is present in the right lung base. No significant pleural effusion. There is no pneumothorax. The heart is normal in size. The mediastinum is unremarkable. IMPRESSION: Emphysema without acute process. Reviewed, Interpreted and Dictated by Nikita Rodriges MD Transcribed by Mirna Kevin Authenticated and [facility]
[2024-05-27 08:04] LABS: Coronavirus 19, PCR Not Detected (NotDetected); Influenza A, PCR Not Detected (NotDetected); Influenza B, PCR Not Detected (NotDetected)
--- NOTE | 2024-05-27 08:04 | PC.NURSE ---
RESPIRATORY NOTIFIED OF VBG
[2024-05-27 08:08] LABS: VBG Base Excess 5.4 mmol/L (-2.4-2.3); VBG HCO3 34.9 mmol/L (23-30); VBG Oxygen Saturation 62.1 % (50-70); VBG PO2 36.7 mmol/L (28-40); VBG Total CO2 38.4 mmol/L (23-27)
[2024-05-27 08:15] LABS: Basophils % 0.3 % (0.1-2.0); Eosinophils % 0.2 % (0.1-12.0); Hematocrit 46.4 % (42.0-52.0); Hemoglobin 14.5 g/dL (14.1-18.0); Lymphocytes # 0.4 K/mm3 (0.7-4.5); Lymphocytes % 7.1 % (10-50); Mean Corpuscular HGB Conc 31.3 g/dL (31.8-35.4); Mean Corpuscular Hemoglobin 31.8 pg (27.0-31.2); Mean Corpuscular Volume 101.8 fl (80-94); Mean Platelet Volume 8.7 fl (7.4-10.4); Monocytes # 0.5 K/mm3 (0.1-1.0); Monocytes % 8.1 % (1.7-9.3); Neutrophils % 83.8 % (37.0-80.0); Platelet Count 180 K/mm3 (142-424); Red Blood Count 4.56 M/mm3 (4.60-6.20); Red Cell Distribution Width 12.6 % (11.5-17.5); White Blood Count 5.9 K/mm3 (4.8-10.8)
[2024-05-27 08:17] LABS: Albumin Level 4.5 g/dl (3.5-5.0); Chloride 89 mmol/L (98-107); Sodium 137 mmol/L (136-145)
[2024-05-27 08:20] LABS: Alanine Aminotransferase 26 U/L (12-78); Albumin/Globulin Ratio 1.4 (1.1-1.8); Alkaline Phosphatase 99 U/L (38-126); Aspartate Amino Transferase 38 U/L (17-59); Bilirubin,Total 0.4 mg/dl (0.2-1.3); Blood Urea Nitrogen 18 mg/dl (9-20); Creatinine Clearance Estimated 76 mL/min (50-200); Estimated Glomerular Filt Rate 67 ml/min (>60); GFR (African American) 81 ML/MIN (>60); Globulin 3.3 g/dL (1.3-3.2); Total Protein,Serum 7.8 g/dl (6.3-8.2)
[2024-05-27 08:21] LABS: Calcium 8.5 mg/dl (8.4-10.2); Glucose 130 mg/dl (74-100)
--- NOTE | 2024-05-27 08:22 | PC.NURSE ---
pt placed on bipap. respiratory at bedside.
[2024-05-27] MEDS: IPRATROPIUM/ALBUTEROL 3 ML NEB IH ×4 (08:23→21:12)
[2024-05-27] MEDS: MAGNESIUM SULFATE IN WATER 2 GM/50 ML PIGGYBACK IV (08:23)
[2024-05-27] MEDS: IPRATROPIUM/ALBUTEROL 3 ML NEB 6 ML IH (08:26)
[2024-05-27 08:28] LABS: Carbon Dioxide 40 mmol/L (22.0-30.0)
[2024-05-27 08:30] LABS: NT Pro Brain Natriuretic Pep. 624 pg/mL (0-125)
[2024-05-27 08:32] LABS: Troponin I 0.02 ng/ml (0.00-0.034)
[2024-05-27 08:36] LABS: Lactate Venous 2.1 mmol/L (0.4-2.0); VBG PCO2 113.8 mmol/L (35-51); VBG PH 7.11 mmol/L (7.31-7.41)
[2024-05-27] MEDS: LORazepam 2MG/ML VIAL 0.5 MG IV (09:18)
--- NOTE | 2024-05-27 09:37 | PC.NURSE ---
Rounded on pt to see if they had any needs. Pt is on Bi-Pap and had no needs
--- NOTE | 2024-05-27 09:38 | PC.NURSE ---
Dr. Wong aware of hypotension on patient; he ordered 1 liter of LR. MARIAM Hermosillo aware
[2024-05-27] MEDS: LACTATED RINGERS 1000ML 1,000 ML 999 ML IV (09:39)
--- NOTE | 2024-05-27 09:44 | PC.NURSE ---
WANTED ANOTHER VBG ON PT SO GREEN TOP WAS SENT TO LAB AT THIS TIME AND RESPIRATORY NOTIFIED OF VBG
[2024-05-27 09:49] LABS: VBG Base Excess 7.3 mmol/L (-2.4-2.3); VBG HCO3 34.9 mmol/L (23-30); VBG Oxygen Saturation 82.3 % (50-70); VBG PCO2 86.1 mmol/L (35-51); VBG PH 7.23 mmol/L (7.31-7.41); VBG PO2 48.2 mmol/L (28-40); VBG Total CO2 37.6 mmol/L (23-27)
[2024-05-27 09:51] LABS: Lactate Venous 2.4 mmol/L (0.4-2.0)
--- NOTE | 2024-05-27 11:05 | PC.NURSE ---
VBG and 2nd trop sent to lab; RT and Lab both made aware.
[2024-05-27 11:09] LABS: VBG HCO3 34.1 mmol/L (23-30); VBG Oxygen Saturation 77.2 % (50-70); VBG PCO2 89.4 mmol/L (35-51); VBG PO2 45.4 mmol/L (28-40); VBG Total CO2 36.8 mmol/L (23-27)
[2024-05-27 11:12] LABS: Lactate Venous 3.1 mmol/L (0.4-2.0)
[2024-05-27 11:39] LABS: Troponin I 0.03 ng/ml (0.00-0.034)
--- NOTE | 2024-05-27 12:07 | PC.NURSE ---
ER on phone with hospitalist
--- NOTE | 2024-05-27 12:11 | PC.NURSE ---
report called to greenhouse instructor for bed placement
--- NOTE | 2024-05-27 12:13 | EXP.HP ---
History of Present Illness *Admission Date: 05/27/24 *Reason for visit:: short of breath *History of present illness: Mr. Flroes is a 68-year-old male with significant history of COPD, pulmonary emboli, CAD, hyperlipidemia, chronic respiratory failure on oxygen. He reports worsening cough and shortness of breath over the past few days. Presented to the ER in respiratory distress. Found to have significant hypercapnia and respiratory acidosis. Initiated on empiric antibiotics with ceftriaxone and azithromycin. BiPAP initiated due to pCO2 of 110. Medicine consulted for admission and further management. Patient wears at least 3 L of oxygen at home at baseline. Denied fever, chills, nausea or vomiting. Confused on arrival. Poor air movement with significant wheeze. On arrival to the ICU, patient in moderate distress. Tolerating BiPAP at this time. Repeat blood gas not showing much improvement. Pulmonology consulted to assist with management. Necessitating ICU level of care and close monitoring. Alert but not oriented. [facility] Disclaimer: The information contained in this section may have been updated after the patient was seen, as this information can be updated by other users. Medical History Non-ST elevation AR (NSTEMI) Lung mass Viral pneumonia Ectopic atrial rhythm Atrial fibrillation with RVR Bilateral pulmonary embolism COPD mixed type Pulmonary emphysema Smoking greater than 30 pack years Necrotizing pneumonia Healthcare-associated pneumonia Pulmonary embolism Acute respiratory failure with hypoxia and hypercarbia Cough CAD in [place] artery Hilar lymphadenopathy Nodule of right lung Shortness of Breath Atypical angina Coronary artery calcification seen on CAT scan Pneumonia CAP (community acquired pneumonia) Alcohol use disorder, severe, in early remission Tobacco dependence COPD (chronic obstructive pulmonary disease) Hyperlipidemia Hypertension Obesity (BMI 30-39.9) Surgical History History of colonoscopy Family History Mother Lung cancer Father COPD (chronic obstructive pulmonary disease) Social History Smoking Status: Current every day smoker tobacco type: cigarettes packs per day: 2 second hand exposure: No alcohol intake: current alcohol intake frequency: 0-2 drinks per day current occupational status: disabled Travel in the last 8 weeks: None household members: significant other caffeine: No Have you lived/traveled outside US in past 30 days?: No Contact w/someone who lives/traveled outside US past 30 days?: No Exposure to someone with infectious disease in past 14 days?: No Do you have a fever (greater than 100.4 F or 38 C)?: No Have you tested positive for COVID-19: No Exposed to someone with COVID-19 in past 14 days?: No Do you have a sore throat?: No Do you have a cough?: No Do you have any weakness?: No Do you have any diarrhea?: No Are you experiencing any unusual bleeding?: No Do you have any muscle aches/pain?: No Do you have any abdominal pain?: No Are you experiencing loss of taste or smell?: No Other Medical History Have you received the Flu Vaccine for this season: No Have you received the Pneumonia Vaccine: No Review of Systems Review of Systems Review of systems (narrative): 14 point review of systems performed, pertinent positives and negatives as per HPI Meds Home Medications and Allergies Home Medications ?Medication ?Instructions ?Recorded ?Confirmed ?Type escitalopram oxalate 20 mg tablet 20 mg PO DAILY 03/24/20 05/27/24 History aspirin 81 mg tablet,delayed 81 mg PO DAILY 05/22/23 05/27/24 History release fluticasone fur. 100 mcg-umeclid 1 inh inhalation DAILY 05/22/23 05/27/24 History 62.5 mcg-vilant 25 mcg inhalat.powder (Trelegy Ellipta) folic acid 1 mg tablet 1 mg PO DAILY 05/22/23 05/27/24 History apixaban 5 mg tablet (Eliquis) 5 mg PO BID 07/07/23 05/27/24 History furosemide 20 mg tablet 20 mg PO MOWE07/07/23 05/27/24 History ipratropium 0.5 mg-albuterol 3 mg 3 ml inhalation Q6RT #0 mL 07/12/23 05/27/24 Rx (2.5 mg base)/3 mL nebulization soln atorvastatin 40 mg tablet 40 mg PO HS 01/16/24 05/27/24 History bisoprolol fumarate 5 mg tablet 5 mg PO DAILY 05/27/24 05/27/24 History prednisone 5 mg tablet 5 mg PO MOWE05/27/24 05/27/24 History New Prescriptions to Start Prescriptions: Allergies Allergy/AdvReac Type Severity Reaction Status Date / Time erythromycin base Allergy Unknown NA-NAUSEA/V Verified 05/27/24 16:19 (ERYTHROMYCIN BASE) OMITING Exam Data for Last 24 hours Vital signs and Labs for Last 24 Hours: Temp Pulse Resp BP Pulse Ox O2 Del Method O2 Flow Rate 97.7 F 85 26 H 131/79 94 L BiPAP 4 05/27/24 07:50 05/27/24 11:30 05/27/24 11:30 05/27/24 11:30 05/27/24 11:30 05/27/24 11:00 05/27/24 08:00 FiO2 30 05/27/24 08:25 Laboratory Results - last 24 hr 05/27/24 07:43: WBC 5.9, RBC 4.56 L, Hgb 14.5, Hct 46.4, MCV 101.8 H, MCH 31.8 H, MCHC 31.3 L, RDW 12.6, Plt Count 180, MPV 8.7, Neut % (Auto) 83.8 H, Lymph % (Auto) 7.1 L, [place] % (Auto) 8.1, Eos % (Auto) 0.2, Baso % (Auto) 0.3, Neut # (Auto) 5.0, Lymph # (Auto) 0.4 L, [place] # (Auto) 0.5, Eos # (Auto) 0.0, Baso # (Auto) 0.0, Sodium 137, Potassium 4.0, Chloride 89 L, Carbon Dioxide 40 H, Anion Gap 12.0, BUN 18, Creatinine 1.10, Estimated Creat Clear 76, Estimated GFR 67, Est GFR ( Amer) 81, Glucose 130 H, Calcium 8.5, Total Bilirubin 0.4, AST 38, ALT 26, Alkaline Phosphatase 99, Troponin I 0.02, NT-Pro-B Natriuret Pep 624 H, Total Protein 7.8 D, Albumin 4.5, Globulin 3.3 H, Albumin/Globulin Ratio 1.4 05/27/24 07:59: SARS-CoV-2 (PCR) Not detected, Influenza A Untype (PCR) Not detected, Influenza Type B (PCR) Not detected 05/27/24 08:04: VBG pH 7.11 L, VBG pCO2 113.8 H, VBG pO2 36.7, VBG HCO3 34.9 H, VBG Total CO2 38.4 H, VBG O2 Saturation 62.1, VBG Base Excess 5.4 H, VBG Lactic Acid 2.1 H 05/27/24 09:51: VBG pH 7.23 L, VBG pCO2 86.1 H, VBG pO2 48.2 H, VBG HCO3 34.9 H, VBG Total CO2 37.6 H, VBG O2 Saturation 82.3 H, VBG Base Excess 7.3 H, VBG Lactic Acid 2.4 H 05/27/24 10:50: VBG pH 7.20 L, VBG pCO2 89.4 H, VBG pO2 45.4 H, VBG HCO3 34.1 H, VBG Total CO2 36.8 H, VBG O2 Saturation 77.2 H, VBG Base Excess 6.0 H, VBG Lactic Acid 3.1 H 05/27/24 11:03: Troponin I 0.03 I & O for Last 24 hours: Intake & Output 05/24/24 05/25/24 05/26/24 05/27/24 23:59 23:59 23:59 23:59 Weight 83.915 kg Constitutional Constitutional: moderate distress, average body habitus, chronically ill appearing, disheveled and somnolent *Routine HEENT Exam Head: Present normocephalic Eye: Present EOMI and PERRL ENT: Present mucous membranes moist *Routine Neck Exam Neck: Present supple Routine Chest/Breast/Axilla Exam Comments: Barrel chested *Routine Respiratory Exam Respiratory: Present accessory muscle use, decreased breath sounds, respiratory distress, rhonchi, wheezes, diminished air movement and symmetric chest movement *Routine Cardiovascular Exam Cardiovascular: Present tachycardia; Absent murmur *Routine Abdominal Exam Abdominal: Present soft and normoactive bowel sounds; Absent tenderness, distended or rebound *Routine Rectal Exam Rectal:: deferred *Routine Genitalia Exam Genitalia:: deferred *Routine Extremities Exam Extremities: Present full ROM and pulses intact; Absent cyanosis, clubbing or edema *Routine Skin Exam Skin: Present warm; Absent rash *Routine Neurological Exam Neurological: Present alert, moving all extremities, vision grossly intact and hearing grossly intact; Absent sensory deficit or motor deficit Routine Psychiatric Exam Psychiatric: Present normal affect, normal thought process and cooperative Assessment and Plan *Assessment and plan (1) Acute on chronic respiratory failure with hypoxia and hypercapnia: Status: Resolved Category: Medical Code(s): J96.21 - Acute and chronic respiratory failure with hypoxia; J96.22 - Acute and chronic respiratory failure with hypercapnia (2) Acute exacerbation of chronic obstructive pulmonary disease: Status: Acute Category: Medical Code(s): J44.1 - Chronic obstructive pulmonary disease with (acute) exacerbation (3) CAD (coronary artery disease): Status: Acute Category: Medical Code(s): I25.10 - Atherosclerotic heart disease of [place] coronary artery without angina pectoris (4) Smoking greater than 30 pack years: Status: Acute Category: Social Hx Code(s): F17.210 - Nicotine dependence, cigarettes, uncomplicated (5) Anxiety: Status: Acute Category: Medical Code(s): F41.9 - Anxiety disorder, unspecified (6) Pulmonary embolism: Status: Acute Qualifiers: Acute cor pulmonale presence: without acute cor pulmonale Chronicity: acute Pulmonary embolism type: other Qualified Code(s): I26.99 - Other pulmonary embolism without acute cor pulmonale Category: Medical Code(s): I26.99 - Other pulmonary embolism without acute cor pulmonale (7) Hypertension: Status: Acute Qualifiers: Hypertension type: primary hypertension Qualified Code(s): I10 - Essential (primary) hypertension Category: Medical Code(s): I10 - Essential (primary) hypertension (8) Hyperlipidemia: Status: Acute Qualifiers: Hyperlipidemia type: mixed hyperlipidemia Qualified Code(s): E78.2 - Mixed hyperlipidemia Category: Medical Code(s): E78.5 - Hyperlipidemia, unspecified (9) Tobacco dependence: Status: Acute Category: Medical Code(s): F17.200 - Nicotine dependence, unspecified, uncomplicated (10) Alcohol use disorder, severe, in early remission: Status: Inactive Category: Medical Code(s): F10.21 - Alcohol dependence, in remission Plan Patient patient is a 68-year-old male with past medical history of CAD, pulmonary embolism on Eliquis, COPD on 4 to 6 L nasal cannula at home, hypertension, hyperlipidemia who presents to the hospital due to shortness of breath. Shortness of breath is gotten worse over the past few days. His significant other was sick last week and now he has had increased cough and dyspnea. Discussed case with ER physician, request admission for hypercapnic respiratory failure. I agreed to admit for further management. Continue to wear BiPAP as he is responding appropriately with improvement in pH. Problems addressed as follows: Acute hypoxic and hypercapnic respiratory failure COPD exacerbation - tachypneic with respiratory rate in the 30s, hypoxic and hypercapnic on blood gas with pH 7.11 and pCO2 of 113. Initiated on BiPAP due to altered mental state and hypercapnia. -Electrolytes at baseline for patient with sodium 137, potassium 4.0, bicarb 40, kidney function normal with BUN 18, creatinine 1.1. -White count is presently normal at 5.9, hemoglobin 14.5. COVID and flu negative. BNP mildly elevated at 624 -Discussed case with pulmonology, continue BiPAP. Adjustment made to settings. Continue with 18/8, rate of 24, FiO2 30%. -Initiated on DuoNebs every 4 hours with hourly albuterol for the first 4 hours. Initiate Pulmicort twice daily. Continue methylprednisolone 60 mg IV twice daily. -Initiated on doxycycline 100 mg twice daily. Monitor serial VBG every 4 hours -Per my review of chest x-ray, has scarring in the right lower lobe but no new consolidation or airspace disease. - Trelegy 100 inhaler daily - Repeat CBC, CMP, magnesium ordered for the morning Mood disorder: Continue Lexapro 20 mg daily CAD Chronic HFpEF - BNP elevated at 642 - Continue aspirin, statin - bisoprolol 5 mg daily, Crestor 10 mg daily. - increase lasix to 40mg IV daily -Developed episode of SVT after admission. Improved with 10 mg IV metoprolol once. Converted to sinus rhythm. Continue on continuous telemetry. Pulmonary hypertension History of PE - Continue home Eliquis 5mg BID - Echo 01/2024 with normal EF, preserved ejection fraction, Elevated RVSP DVT prophylaxis-on Eliquis Full code Cardiac diet ICU/Critical care attestation This patient is critically ill with 40 minutes devoted solely to this patient managing life/organ supporting interventions that required physician assessment. This includes time spent making adjustments in ventilator settings, IV fluid administration, titration of pressors, adjustments of medications, discussion of patient with consultants and other care providers as well as updating patient and/or family (if patient by virtue of his/her condition is unable to participate in decision making). This does not include time spent performing separately billed procedures. Time is not concurrent with that of other providers.
--- NOTE | 2024-05-27 12:15 | HMH.PHAINT1 ---
Pharmacy Intervention Comments: MEDICATION RECONCILIATION COMPLETED ON PATIENT USING EXTERNAL FILL HISTORY FROM PHARMACY. -LUISITO LANGE, ESAD
--- NOTE | 2024-05-27 12:29 | PC.NURSE ---
report called to ariadna in ICU respiratory called to help transport pt to ICU with bipap
[2024-05-27 12:36] LABS: Reflex Lactic Add Lactic Reflex
--- NOTE | 2024-05-27 13:15 | EXP.PULM.CON ---
History of Present Illness History of present illness: Mr. Cortez is a 68-year-old male current smoker greater than [id number] smoking history recurrent hypercarbic respiratory failure with central worsening respiratory vents found to be in hypercarbic respiratory failure needing noninvasive ventilator therapy and pulmonary was called for further evaluation and management. [facility] Disclaimer: The information contained in this section may have been updated after the patient was seen, as this information can be updated by other users. Medical History (Updated 05/27/24 @ 12:42 by Godwin Wong MD) Non-ST elevation MD (NSTEMI) Lung mass Viral pneumonia Ectopic atrial rhythm Atrial fibrillation with RVR Bilateral pulmonary embolism COPD mixed type Pulmonary emphysema Smoking greater than 30 pack years Necrotizing pneumonia Healthcare-associated pneumonia Pulmonary embolism Acute respiratory failure with hypoxia and hypercarbia Cough CAD in [place] artery Hilar lymphadenopathy Nodule of right lung Shortness of Breath Atypical angina Coronary artery calcification seen on CAT scan Pneumonia CAP (community acquired pneumonia) Alcohol use disorder, severe, in early remission Tobacco dependence COPD (chronic obstructive pulmonary disease) Hyperlipidemia Hypertension Obesity (BMI 30-39.9) Surgical History History of colonoscopy Family History Mother Lung cancer Father COPD (chronic obstructive pulmonary disease) Social History Smoking Status: Current every day smoker tobacco type: cigarettes packs per day: 2 second hand exposure: No alcohol intake: current alcohol intake frequency: 0-2 drinks per day current occupational status: disabled Travel in the last 8 weeks: None household members: significant other caffeine: No Have you lived/traveled outside [place] in past 30 days?: No Contact w/someone who lives/traveled outside US past 30 days?: No Exposure to someone with infectious disease in past 14 days?: No Do you have a fever (greater than 100.4 F or 38 C)?: No Have you tested positive for COVID-19: No Exposed to someone with COVID-19 in past 14 days?: No Do you have a sore throat?: No Do you have a cough?: No Do you have any weakness?: No Do you have any diarrhea?: No Are you experiencing any unusual bleeding?: No Do you have any muscle aches/pain?: No Do you have any abdominal pain?: No Are you experiencing loss of taste or smell?: No Review of Systems Constitutional Constitutional: Reports anorexia, Reports body ache(s) and Reports fatigue Eyes Eyes: Denies eye discharge, Denies dry eyes, Denies irritation and Denies itchy eyes ENT Ears, Nose, Mouth, and Throat: Denies epistaxis, Denies facial pain, Denies lip swelling and Denies throat swelling *Cardiovascular Cardiovascular: Reports dyspnea, Reports dyspnea on exertion and Reports orthopnea *Respiratory Respiratory: Denies change in phlegm color, Reports chest congestion, Reports cough, Reports dyspnea, Reports dyspnea on exertion, Reports excessive phlegm production and Reports wheezing *Gastrointestinal Gastrointestinal: Denies abdominal pain, Denies belching and Denies cramping *Musculoskeletal Musculoskeletal: Reports back pain, Reports myalgias and Reports other (No small joint swelling or Pain) Psychiatric Psychiatric: Denies homicidal ideation and Denies suicidal ideation Endocrine Endocrine: Reports fatigue and Denies heat intolerance Hematologic/Lymphatic Hematologic/Lymphatic: Denies easy bleeding and Denies lymphadenopathy Allergic/Immunologic Allergic/Immunologic: Denies itchy eyes, Denies lip swelling, Denies throat swelling and Reports wheezing Pulmonology Exam Inpatient Vital signs and Labs for Last 24 Hours: Temp Pulse Resp BP Pulse Ox O2 Del Method O2 Flow Rate 97.4 F L 86 29 H 133/85 95 BiPAP 4 05/27/24 13:14 05/27/24 12:42 05/27/24 12:42 05/27/24 12:42 05/27/24 12:00 05/27/24 13:14 05/27/24 08:00 FiO2 30 05/27/24 13:14 Laboratory Results - last 24 hr 05/27/24 07:43: WBC 5.9, RBC 4.56 L, Hgb 14.5, Hct 46.4, MCV 101.8 H, MCH 31.8 H, MCHC 31.3 L, RDW 12.6, Plt Count 180, MPV 8.7, Neut % (Auto) 83.8 H, Lymph % (Auto) 7.1 L, [place] % (Auto) 8.1, Eos % (Auto) 0.2, Baso % (Auto) 0.3, Neut # (Auto) 5.0, Lymph # (Auto) 0.4 L, [place] # (Auto) 0.5, Eos # (Auto) 0.0, Baso # (Auto) 0.0, Sodium 137, Potassium 4.0, Chloride 89 L, Carbon Dioxide 40 H, Anion Gap 12.0, BUN 18, Creatinine 1.10, Estimated Creat Clear 76, Estimated GFR 67, Est GFR ( Amer) 81, Glucose 130 H, Calcium 8.5, Total Bilirubin 0.4, AST 38, ALT 26, Alkaline Phosphatase 99, Troponin I 0.02, NT-Pro-B Natriuret Pep 624 H, Total Protein 7.8 D, Albumin 4.5, Globulin 3.3 H, Albumin/Globulin Ratio 1.4 05/27/24 07:59: SARS-CoV-2 (PCR) Not detected, Influenza A Untype (PCR) Not detected, Influenza Type B (PCR) Not detected 05/27/24 08:04: VBG pH 7.11 L, VBG pCO2 113.8 H, VBG pO2 36.7, VBG HCO3 34.9 H, VBG Total CO2 38.4 H, VBG O2 Saturation 62.1, VBG Base Excess 5.4 H, VBG Lactic Acid 2.1 H 05/27/24 09:51: VBG pH 7.23 L, VBG pCO2 86.1 H, VBG pO2 48.2 H, VBG HCO3 34.9 H, VBG Total CO2 37.6 H, VBG O2 Saturation 82.3 H, VBG Base Excess 7.3 H, VBG Lactic Acid 2.4 H 05/27/24 10:50: VBG pH 7.20 L, VBG pCO2 89.4 H, VBG pO2 45.4 H, VBG HCO3 34.1 H, VBG Total CO2 36.8 H, VBG O2 Saturation 77.2 H, VBG Base Excess 6.0 H, VBG Lactic Acid 3.1 H 05/27/24 11:03: Troponin I 0.03 I & O for Labs for Last 24 Hours: Intake & Output 05/24/24 05/25/24 05/26/24 05/27/24 23:59 23:59 23:59 23:59 Weight 179 lb 3 oz Constitutional: Present severe distress Head: Present normocephalic and atraumatic ENT: Present normal exam, normal oropharynx and mucous membranes moist Neck: Present normal inspection and full ROM Respiratory: Present prolonged expiratory phase, respiratory distress, wheezes and diminished air movement; Absent normal respiratory effort or able to speak in complete sentences Cardiac: Present S1/S2, Tachycardia and radial pulses present GI: Present soft and distention; Absent tenderness or guarding Skin: Present intact; Absent cyanosis or jaundice Neuro: Present alert and awake Extremities: Present normal inspection; Absent clubbing or cyanosis Psychiatric: Present normal affect and cooperative Meds Home Medications and Allergies Home Medications ?Medication ?Instructions ?Recorded ?Confirmed ?Type escitalopram oxalate 20 mg tablet 20 mg PO DAILY 03/24/20 05/27/24 History aspirin 81 mg tablet,delayed 81 mg PO DAILY 05/22/23 05/27/24 History release fluticasone fur. 100 mcg-umeclid 1 inh inhalation DAILY 05/22/23 05/27/24 History 62.5 mcg-vilant 25 mcg inhalat.powder (Trelegy Ellipta) folic acid 1 mg tablet 1 mg PO DAILY 05/22/23 05/27/24 History apixaban 5 mg tablet (Eliquis) 5 mg PO BID 07/07/23 05/27/24 History furosemide 20 mg tablet 20 mg PO MOWEFR 07/07/23 05/27/24 History ipratropium 0.5 mg-albuterol 3 mg 3 ml inhalation Q6RT #0 mL 07/12/23 05/27/24 Rx (2.5 mg base)/3 mL nebulization soln atorvastatin 40 mg tablet 40 mg PO HS 01/16/24 05/27/24 History bisoprolol fumarate 5 mg tablet 5 mg PO DAILY 05/27/24 05/27/24 History prednisone 5 mg tablet 5 mg PO MOWEFR 05/27/24 05/27/24 History New Prescriptions to Start Prescriptions: Allergies Allergy/AdvReac Type Severity Reaction Status Date / Time erythromycin base Allergy Unknown NA-NAUSEA/V Verified 01/15/24 15:07 (ERYTHROMYCIN BASE) OMITING Results Laboratory Findings 05/27/24 07:43 05/27/24 07:43 Abnormal lab findings: Abnormal Labs 05/27/24 05/27/24 05/27/24 07:43 08:04 09:51 RBC 4.56 L MCV 101.8 H MCH 31.8 H MCHC 31.3 L Neut % (Auto) 83.8 H Lymph % (Auto) 7.1 L Lymph # (Auto) 0.4 L VBG pH 7.11 L 7.23 L VBG pCO2 113.8 H 86.1 H VBG pO2 48.2 H VBG HCO3 34.9 H 34.9 H VBG Total CO2 38.4 H 37.6 H VBG O2 Saturation 82.3 H VBG Base Excess 5.4 H 7.3 H VBG Lactic Acid 2.1 H 2.4 H Chloride 89 L Carbon Dioxide 40 H Glucose 130 H NT-Pro-B Natriuret Pep 624 H Globulin 3.3 H 05/27/24 10:50 RBC MCV MCH MCHC Neut % (Auto) Lymph % (Auto) Lymph # (Auto) VBG pH 7.20 L VBG pCO2 89.4 H VBG pO2 45.4 H VBG HCO3 34.1 H VBG Total CO2 36.8 H VBG O2 Saturation 77.2 H VBG Base Excess 6.0 H VBG Lactic Acid 3.1 H Chloride Carbon Dioxide Glucose NT-Pro-B Natriuret Pep Globulin Assessment and Plan *Assessment and plan (1) Acute exacerbation of chronic obstructive pulmonary disease: Status: Acute Category: Medical Code(s): J44.1 - Chronic obstructive pulmonary disease with (acute) exacerbation (2) Acute hypercapnic respiratory failure: Status: Acute Category: Medical Code(s): J96.02 - Acute respiratory failure with hypercapnia Plan Mr. Cortez is a 68-year-old male current smoker greater than [id number] smoking history recurrent hypercarbic respiratory failure with central worsening respiratory vents found to be in hypercarbic respiratory failure needing noninvasive ventilator therapy and pulmonary was called for further evaluation and management. Afebrile. Hemodynamically stable. No evidence of leukocytosis. COVID-19 and flu PCR panel negative. Chest x-ray upon admission, clear with no dense consolidative/airspace changes. Blood gas upon admission severe hypercarbic respiratory failure with a pH of 7.11 and pCO2 of 113.8. Saturating clinically showed improvement in the pH of 7.20 and a pCO2 of 89.4. Bilateral decreased breath sounds with significant wheezing. Severe respiratory distress unable to talk in full sentences. Plan: Continue BiPAP therapy at 18/8, rate of 24 and FiO2 of 30% DuoNebs every 4 hours along with Pulmicort Q12 scheduled Continue methylprednisolone 60 mg IV every 12 hours Doxycycline 100 mg IV twice daily Follow with repeat venous blood gas in 4 hours
[2024-05-27 13:28] LABS: Lactic Acid Follow Up (RFLX 1) 3.2 mmol/L (0.7-2.1)
[2024-05-27] MEDS: ALBUTEROL 0.083% 2.5 MG/3 ML NEB 7.5 MG IH ×3 (14:05→15:56)
[2024-05-27] MEDS: DOXYCYCLINE HYCLATE 100 MG in 0.9 % SODIUM CHLORIDE 250 ML 166.667 MG IV (14:51)
[2024-05-27 14:59] LABS: Troponin I 0.03 ng/ml (0.00-0.034)
[2024-05-27 15:12] LABS: Reflex Lactic (2 hrs) Add Lactic Reflex
[2024-05-27 16:19] LABS: Lactic Acid Follow up (RFLX 2) 2.4 mmol/L (0.7-2.1)
[2024-05-27] MEDS: BUDESONIDE 0.5MG/2ML NEB 0.5 MG IH (17:10)
[2024-05-27 17:17] LABS: VBG Base Excess 3.5 mmol/L (-2.4-2.3); VBG HCO3 30.1 mmol/L (23-30); VBG Oxygen Saturation 69.8 % (50-70); VBG PCO2 64.1 mmol/L (35-51); VBG PH 7.29 mmol/L (7.31-7.41); VBG PO2 37.1 mmol/L (28-40); VBG Total CO2 32.1 mmol/L (23-27)
[2024-05-27 17:18] LABS: Lactate Venous 2.6 mmol/L (0.4-2.0)
--- NOTE | 2024-05-27 18:11 | ECG_ITS ---
APPROVED REPORT Exam: Resting ECG HR:171 bpm ECG Measurements Heart Rate 171 AXES QRSd 160 QRS 129 QT 260 T -15 QTc 353 Conclusion UNCERTAIN IRREGULAR RHYTHM RIGHT AXIS DEVIATION [QRS AXIS > 100] INTRAVENTRICULAR CONDUCTION DELAY [130+ ms QRS DURATION] MARKED ST ELEVATION, CONSIDER ANTERIOR INJURY [MARKED ST ELEVATION W/O NORMALLY INFLECTED T-WAVE IN V2-V5] MARKED ST ELEVATION, CONSIDER INFERIOR INJURY [MARKED ST ELEVATION W/O NORMALLY INFLECTED T-WAVE IN II/aVF] ACUTE OR INTERPRETATION BASED ON A DEFAULT AGE OF 40 YEARS UNCONFIRMED REPORT Electronically signed by : Donta Moyer MD 05/29/2024 08:51:04
--- NOTE | 2024-05-27 18:20 | PC.NURSE ---
thie nurse noted pt HR to rise on the monitor from 93 to 171bpm. on immidiate assessment of patient he is alert and oriented x 3 but shaking and increasingly anxious reporting that he cant breathe. EKG obtained. hospitalist notified and gave an emergent verbal order for 10mg IV metoprolol Tartrate once.
[2024-05-27] MEDS: METOPROLOL TARTRATE 5MG/5ML VIAL 10 MG IV (18:42)
[2024-05-27] MEDS: ATORVASTATIN 40MG TABLET 40 MG PO (21:11)
[2024-05-27] MEDS: METHYLPREDNISOLONE SOD SUCC 125MG VIAL 60 MG IV (21:11)
[2024-05-27] MEDS: APIXABAN 5MG TABLET 5 MG PO (21:27)
[2024-05-27] MEDS: METOPROLOL TARTRATE 5MG/5ML VIAL 5 MG IV (22:24)
[2024-05-28] VITALS (68 sets, daily range): BP systolic 98–173; BP diastolic 60–104; PULSE 70–101; RESP 17–54; TEMP 36.5–37.1; O2SAT 91–99; BMI 26.2
[2024-05-28] MEDS: DOXYCYCLINE HYCLATE 100 MG in 0.9 % SODIUM CHLORIDE 250 ML 166.667 MG IV ×2 (01:42→14:06)
[2024-05-28] MEDS: IPRATROPIUM/ALBUTEROL 3 ML NEB IH ×6 (01:44→22:16)
[2024-05-28] MEDS: BUDESONIDE 0.5MG/2ML NEB 0.5 MG IH ×2 (06:23→18:36)
[2024-05-28 06:40] LABS: Hematocrit 41.5 % (42.0-52.0); Hemoglobin 13.3 g/dL (14.1-18.0); Lymphocytes # 0.3 K/mm3 (0.7-4.5); Mean Corpuscular Hemoglobin 31.9 pg (27.0-31.2); Mean Corpuscular Volume 99.5 fl (80-94); Mean Platelet Volume 9.1 fl (7.4-10.4); Monocytes # 0.4 K/mm3 (0.1-1.0); Monocytes % 5.5 % (1.7-9.3); Platelet Count 183 K/mm3 (142-424); Red Blood Count 4.17 M/mm3 (4.60-6.20); Red Cell Distribution Width 12.9 % (11.5-17.5); White Blood Count 7.8 K/mm3 (4.8-10.8)
[2024-05-28 06:47] LABS: MANUAL DIFFERENTIAL MANUAL DIFFERENTIAL (MANUAL DIFF)
[2024-05-28 06:59] LABS: Chloride 94 mmol/L (98-107)
[2024-05-28 07:00] LABS: Albumin Level 4.1 g/dl (3.5-5.0); Potassium 4.6 mmoL/L (3.5-5.1); Sodium 135 mmol/L (136-145)
[2024-05-28 07:02] LABS: Alanine Aminotransferase 22 U/L (12-78); Albumin/Globulin Ratio 1.5 (1.1-1.8); Anion Gap 9.6 mEq/L (5-15); Aspartate Amino Transferase 31 U/L (17-59); Blood Urea Nitrogen 22 mg/dl (9-20); Carbon Dioxide 36 mmol/L (22.0-30.0); Creatinine Clearance Estimated 83 mL/min (50-200); Estimated Glomerular Filt Rate 84 ml/min (>60); GFR (African American) 102 ML/MIN (>60); Globulin 2.8 g/dL (1.3-3.2); Total Protein,Serum 6.9 g/dl (6.3-8.2)
[2024-05-28 07:03] LABS: Alkaline Phosphatase 83 U/L (38-126); Bilirubin,Total 0.2 mg/dl (0.2-1.3); Calcium 8.9 mg/dl (8.4-10.2); Glucose 129 mg/dl (74-100); Magnesium 2.2 mg/dl (1.6-2.3)
[2024-05-28 08:17] LABS: Lactate Venous 1.6 mmol/L (0.4-2.0); VBG Base Excess 10.9 mmol/L (-2.4-2.3); VBG HCO3 35.2 mmol/L (23-30); VBG Oxygen Saturation 96.7 % (50-70); VBG PCO2 53.6 mmol/L (35-51); VBG PH 7.44 mmol/L (7.31-7.41); VBG PO2 81.6 mmol/L (28-40); VBG Total CO2 36.8 mmol/L (23-27)
[2024-05-28 08:35] LABS: Lymphocytes % 4 % (10-50); Monocytes % 2 % (2-9); Neutrophils % 94 % (42-76); Platelet Estimate Normal; RBC Morphology Normal; Total Cells Counted 100
[2024-05-28] MEDS: APIXABAN 5MG TABLET 5 MG PO ×2 (09:10→20:59)
[2024-05-28] MEDS: BISOPROLOL 5MG TABLET 5 MG PO (09:11)
[2024-05-28] MEDS: ASPIRIN EC 81MG TABLET 81 MG PO (09:11)
[2024-05-28] MEDS: CITALOPRAM 40MG TABLET 40 MG PO (09:11)
[2024-05-28] MEDS: FUROSEMIDE 40MG/4ML VIAL 40 MG IV (09:11)
[2024-05-28] MEDS: FOLIC ACID 1MG TABLET 1 MG PO (09:11)
[2024-05-28] MEDS: METHYLPREDNISOLONE SOD SUCC 125MG VIAL 60 MG IV ×2 (09:15→20:59)
--- NOTE | 2024-05-28 09:49 | EXP.PULM.PN ---
Subjective *Date: 05/28/24 *Time: 12:00 Interval history: No acute respiratory vents overnight. Patient admits improvement in his respiratory status Pulmonology Exam Inpatient Vital signs and Labs for Last 24 Hours: Temp Pulse Resp BP Pulse Ox O2 Del Method O2 Flow Rate 98.7 F 95 H 25 H 129/88 97 BiPAP 4 05/28/24 00:00 05/28/24 09:41 05/28/24 07:00 05/28/24 07:00 05/28/24 07:00 05/28/24 09:00 05/27/24 08:00 FiO2 30 05/28/24 09:42 Laboratory Results - last 24 hr 05/27/24 09:51: VBG pH 7.23 L, VBG pCO2 86.1 H, VBG pO2 48.2 H, VBG HCO3 34.9 H, VBG Total CO2 37.6 H, VBG O2 Saturation 82.3 H, VBG Base Excess 7.3 H, VBG Lactic Acid 2.4 H 05/27/24 10:50: VBG pH 7.20 L, VBG pCO2 89.4 H, VBG pO2 45.4 H, VBG HCO3 34.1 H, VBG Total CO2 36.8 H, VBG O2 Saturation 77.2 H, VBG Base Excess 6.0 H, VBG Lactic Acid 3.1 H 05/27/24 11:03: Troponin I 0.03 05/27/24 13:10: Lactate 3.2 H 05/27/24 14:15: Troponin I 0.03 05/27/24 15:39: Lactate 2.4 H 05/27/24 17:30: VBG pH 7.29 L, VBG pCO2 64.1 H, VBG pO2 37.1, VBG HCO3 30.1 H, VBG Total CO2 32.1 H, VBG O2 Saturation 69.8, VBG Base Excess 3.5 H, VBG Lactic Acid 2.6 H 05/28/24 05:35: WBC 7.8 D, RBC 4.17 L, Hgb 13.3 L, Hct 41.5 L, MCV 99.5 H, MCH 31.9 H, MCHC 32.0, RDW 12.9, Plt Count 183, MPV 9.1, Neut % (Auto) 90.0 H, Lymph % (Auto) 4.0 L, [place] % (Auto) 5.5, Eos % (Auto) 0.0 L, Baso % (Auto) 0.0 L, Neut # (Auto) 7.0, Lymph # (Auto) 0.3 L, [place] # (Auto) 0.4, Eos # (Auto) 0.0, Baso # (Auto) 0.0, Total Counted 100, Neutrophils % (Manual) 94 H, Lymphocytes % (Manual) 4 L, Monocytes % (Manual) 2, Platelet Estimate Normal, RBC Morphology Normal, Sodium 135 L, Potassium 4.6, Chloride 94 L, Carbon Dioxide 36 H, Anion Gap 9.6, BUN 22 H, Creatinine 0.90, Estimated Creat Clear 83, Estimated GFR 84, Est GFR ( Amer) 102 D, Glucose 129 H, Calcium 8.9, Magnesium 2.2, Total Bilirubin 0.2, AST 31, ALT 22, Alkaline Phosphatase 83, Total Protein 6.9, Albumin 4.1, Globulin 2.8, Albumin/Globulin Ratio 1.5 05/28/24 08:10: VBG pH 7.44 H, VBG pCO2 53.6 H, VBG pO2 81.6 H, VBG HCO3 35.2 H, VBG Total CO2 36.8 H, VBG O2 Saturation 96.7 H, VBG Base Excess 10.9 H, VBG Lactic Acid 1.6 Temp Pulse Resp BP Pulse Ox O2 Del Method O2 Flow Rate 97.4 F L 86 29 H 133/85 95 BiPAP 4 05/27/24 13:14 05/27/24 12:42 05/27/24 12:42 05/27/24 12:42 05/27/24 12:00 05/27/24 13:14 05/27/24 08:00 FiO2 30 05/27/24 13:14 Laboratory Results - last 24 hr 05/27/24 07:43: WBC 5.9, RBC 4.56 L, Hgb 14.5, Hct 46.4, MCV 101.8 H, MCH 31.8 H, MCHC 31.3 L, RDW 12.6, Plt Count 180, MPV 8.7, Neut % (Auto) 83.8 H, Lymph % (Auto) 7.1 L, [place] % (Auto) 8.1, Eos % (Auto) 0.2, Baso % (Auto) 0.3, Neut # (Auto) 5.0, Lymph # (Auto) 0.4 L, [place] # (Auto) 0.5, Eos # (Auto) 0.0, Baso # (Auto) 0.0, Sodium 137, Potassium 4.0, Chloride 89 L, Carbon Dioxide 40 H, Anion Gap 12.0, BUN 18, Creatinine 1.10, Estimated Creat Clear 76, Estimated GFR 67, Est GFR ( Amer) 81, Glucose 130 H, Calcium 8.5, Total Bilirubin 0.4, AST 38, ALT 26, Alkaline Phosphatase 99, Troponin I 0.02, NT-Pro-B Natriuret Pep 624 H, Total Protein 7.8 D, Albumin 4.5, Globulin 3.3 H, Albumin/Globulin Ratio 1.4 05/27/24 07:59: SARS-CoV-2 (PCR) Not detected, Influenza A Untype (PCR) Not detected, Influenza Type B (PCR) Not detected 05/27/24 08:04: VBG pH 7.11 L, VBG pCO2 113.8 H, VBG pO2 36.7, VBG HCO3 34.9 H, VBG Total CO2 38.4 H, VBG O2 Saturation 62.1, VBG Base Excess 5.4 H, VBG Lactic Acid 2.1 H 05/27/24 09:51: VBG pH 7.23 L, VBG pCO2 86.1 H, VBG pO2 48.2 H, VBG HCO3 34.9 H, VBG Total CO2 37.6 H, VBG O2 Saturation 82.3 H, VBG Base Excess 7.3 H, VBG Lactic Acid 2.4 H 05/27/24 10:50: VBG pH 7.20 L, VBG pCO2 89.4 H, VBG pO2 45.4 H, VBG HCO3 34.1 H, VBG Total CO2 36.8 H, VBG O2 Saturation 77.2 H, VBG Base Excess 6.0 H, VBG Lactic Acid 3.1 H 05/27/24 11:03: Troponin I 0.03 I & O for Labs for Last 24 Hours: Intake & Output 05/25/24 05/26/24 05/27/24 05/28/24 23:59 23:59 23:59 23:59 Intake Total 400 / 525 375 / 375 Output Total 400 / 400 550 / 550 Balance 0 / 125 -175 / -175 Weight 179 lb 3 oz 182 lb 15.739 oz Intake & Output 05/24/24 05/25/24 05/26/24 05/27/24 23:59 23:59 23:59 23:59 Weight 179 lb 3 oz Constitutional: Present severe distress Head: Present normocephalic and atraumatic ENT: Present normal exam, normal oropharynx and mucous membranes moist Neck: Present normal inspection and full ROM Respiratory: Present prolonged expiratory phase, respiratory distress, wheezes and diminished air movement; Absent normal respiratory effort or able to speak in complete sentences Cardiac: Present S1/S2, Tachycardia and radial pulses present GI: Present soft and distention; Absent tenderness or guarding Skin: Present intact; Absent cyanosis or jaundice Neuro: Present alert and awake Extremities: Present normal inspection; Absent clubbing or cyanosis Psychiatric: Present normal affect and cooperative Assessment and Plan *Assessment and plan (1) Acute exacerbation of chronic obstructive pulmonary disease: Status: Acute Category: Medical Code(s): J44.1 - Chronic obstructive pulmonary disease with (acute) exacerbation (2) Acute hypercapnic respiratory failure: Status: Acute Category: Medical Code(s): J96.02 - Acute respiratory failure with hypercapnia Plan Mr. Cortez is a 68-year-old male current smoker greater than [id number] smoking history recurrent hypercarbic respiratory failure with central worsening respiratory vents found to be in hypercarbic respiratory failure needing noninvasive ventilator therapy and pulmonary was called for further evaluation and management. Afebrile. Hemodynamically stable. No evidence of leukocytosis. COVID-19 and flu PCR panel negative. Chest x-ray upon admission, clear with no dense consolidative/airspace changes. Blood gas upon admission severe hypercarbic respiratory failure with a pH of 7.11 and pCO2 of 113.8. Saturating clinically showed improvement in the pH of 7.20 and a pCO2 of 89.4. On initial examination bilateral decreased breath sounds with significant wheezing. Severe respiratory distress unable to talk in full sentences. Interaval Update: No acute respiratory events overnight. Continued improvement in her noted hypercarbic respiratory failure. Venous blood gas this morning showed chronic hypercarbia with pH of 7.44 and pCO2 53.6. Plan: Wean BiPAP to nasal cannula with O2 saturation goal of 90% to 95%. DuoNebs every 4 hours along with Pulmicort Q12 scheduled Continue methylprednisolone 60 mg IV every 12 hours Doxycycline 100 mg IV twice daily
--- NOTE | 2024-05-28 11:45 | ECG_ITS ---
APPROVED REPORT Exam: Resting ECG HR:84 bpm ECG Measurements Heart Rate 84 AXES RI 142 P 76 QRSd 82 QRS 72 QT 354 T 63 QTc 395 Conclusion SINUS RHYTHM NORMAL ECG UNCONFIRMED REPORT Electronically signed by : Donta Moyer MD 05/29/2024 08:50:40
--- NOTE | 2024-05-28 16:24 | P.PN_ITS ---
Subjective *Date: 05/28/24 *Time: 16:24 Interval history: VBG reassuring, weaned to nasal cannula from BiPAP saturating appropriately. Continues to have restricted air movement. BiPAP as needed overnight. Follow- up morning VBG. Exam Data for Last 24 hours Vital signs and Labs for Last 24 Hours: Temp Pulse Resp BP Pulse Ox O2 Del Method O2 Flow Rate 97.7 F 80 31 H 155/84 H 97 Nasal Cannula 3 05/28/24 08:00 05/28/24 16:00 05/28/24 15:00 05/28/24 15:00 05/28/24 15:00 05/28/24 15:00 05/28/24 15:00 FiO2 30 05/28/24 10:01 Laboratory Results - last 24 hr 05/27/24 17:30: VBG pH 7.29 L, VBG pCO2 64.1 H, VBG pO2 37.1, VBG HCO3 30.1 H, VBG Total CO2 32.1 H, VBG O2 Saturation 69.8, VBG Base Excess 3.5 H, VBG Lactic Acid 2.6 H 05/28/24 05:35: WBC 7.8 D, RBC 4.17 L, Hgb 13.3 L, Hct 41.5 L, MCV 99.5 H, MCH 31.9 H, MCHC 32.0, RDW 12.9, Plt Count 183, MPV 9.1, Neut % (Auto) 90.0 H, Lymph % (Auto) 4.0 L, [place] % (Auto) 5.5, Eos % (Auto) 0.0 L, Baso % (Auto) 0.0 L, Neut # (Auto) 7.0, Lymph # (Auto) 0.3 L, [place] # (Auto) 0.4, Eos # (Auto) 0.0, Baso # (Auto) 0.0, Total Counted 100, Neutrophils % (Manual) 94 H, Lymphocytes % (Manual) 4 L, Monocytes % (Manual) 2, Platelet Estimate Normal, RBC Morphology Normal, Sodium 135 L, Potassium 4.6, Chloride 94 L, Carbon Dioxide 36 H, Anion Gap 9.6, BUN 22 H, Creatinine 0.90, Estimated Creat Clear 83, Estimated GFR 84, Est GFR ( Amer) 102 D, Glucose 129 H, Calcium 8.9, Magnesium 2.2, Total Bilirubin 0.2, AST 31, ALT 22, Alkaline Phosphatase 83, Total Protein 6.9, Albumin 4.1, Globulin 2.8, Albumin/Globulin Ratio 1.5 05/28/24 08:10: VBG pH 7.44 H, VBG pCO2 53.6 H, VBG pO2 81.6 H, VBG HCO3 35.2 H, VBG Total CO2 36.8 H, VBG O2 Saturation 96.7 H, VBG Base Excess 10.9 H, VBG Lactic Acid 1.6 I & O for Last 24 hours: Intake & Output 05/25/24 05/26/24 05/27/24 05/28/24 23:59 23:59 23:59 23:59 Intake Total 400 / 525 835 / 835 Output Total 400 / 400 1300 / 1300 Balance 0 / 125 -465 / -465 Weight 81.278 kg 83 kg Microbiology Reports for the Last 24 Hours: Microbiology 05/27/24 09:50 Blood Blood Culture - Preliminary NO GROWTH AFTER 24 HOURS 05/27/24 09:50 Blood Blood Culture - Preliminary NO GROWTH AFTER 24 HOURS Constitutional Constitutional: no acute distress *Routine HEENT Exam Head: Present normocephalic Eye: Present EOMI and PERRL ENT: Present mucous membranes moist *Routine Neck Exam Neck: Present supple; Absent lymphadenopathy *Routine Respiratory Exam Respiratory: Present wheezes and diminished air movement; Absent CTA bilaterally *Routine Cardiovascular Exam Cardiovascular: Present RRR *Routine Abdominal Exam Abdominal: Present soft and normoactive bowel sounds; Absent tenderness *Routine Extremities Exam Extremities: Absent cyanosis, clubbing or edema *Routine Skin Exam Skin: Present warm; Absent rash *Routine Neurological Exam Neurological: Present alert and oriented X3 Assessment and Plan *Assessment and plan (1) Acute on chronic respiratory failure with hypoxia and hypercapnia: Status: Resolved Category: Medical Code(s): J96.21 - Acute and chronic respiratory failure with hypoxia; J96.22 - Acute and chronic respiratory failure with hypercapnia (2) Acute exacerbation of chronic obstructive pulmonary disease: Status: Acute Category: Medical Code(s): J44.1 - Chronic obstructive pulmonary disease with (acute) exacerbation (3) CAD (coronary artery disease): Status: Acute Category: Medical Code(s): I25.10 - Atherosclerotic heart disease of [place] coronary artery without angina pectoris (4) Smoking greater than 30 pack years: Status: Acute Category: Social Hx Code(s): F17.210 - Nicotine dependence, cigarettes, uncomplicated (5) Anxiety: Status: Acute Category: Medical Code(s): F41.9 - Anxiety disorder, unspecified (6) Pulmonary embolism: Status: Acute Qualifiers: Pulmonary embolism type: other Chronicity: acute Acute cor pulmonale presence: without acute cor pulmonale Qualified Code(s): I26.99 - Other pulmonary embolism without acute cor pulmonale Category: Medical Code(s): I26.99 - Other pulmonary embolism without acute cor pulmonale (7) Hypertension: Status: Acute Qualifiers: Hypertension type: primary hypertension Qualified Code(s): I10 - Essential (primary) hypertension Category: Medical Code(s): I10 - Essential (primary) hypertension (8) Hyperlipidemia: Status: Acute Qualifiers: Hyperlipidemia type: mixed hyperlipidemia Qualified Code(s): E78.2 - Mixed hyperlipidemia Category: Medical Code(s): E78.5 - Hyperlipidemia, unspecified (9) Tobacco dependence: Status: Acute Category: Medical Code(s): F17.200 - Nicotine dependence, unspecified, uncomplicated (10) Alcohol use disorder, severe, in early remission: Status: Inactive Category: Medical Code(s): F10.21 - Alcohol dependence, in remission Plan Patient is a 68-year-old male with past medical history of CAD, pulmonary embolism on Eliquis, COPD on 4 to 6 L nasal cannula at home, hypertension, hyperlipidemia who presents to the hospital due to shortness of breath. Shortness of breath is gotten worse over the past few days. His significant other was sick last week and now he has had increased cough and dyspnea. Discussed case with ER physician, request admission for hypercapnic respiratory failure. I agreed to admit for further management. Continue to wear BiPAP as he is responding appropriately with improvement in pH. Problems addressed as follows: #Acute metabolic encephalopathy #Acute hypoxic and hypercapnic respiratory failure #COPD exacerbation ? Initially presented with tachypnea, hypoxic and hypercapnic on blood gas with pH 7.11 and pCO2 of 113. CXR without acute infiltrates. ? VBG this morning reassuring, weaned off BiPAP to 3 L saturating 97%. Encephalopathy resolved today. ? Continues to have tachypnea, restricted air movement. Continues to be watcher. ? White count is stable at 7.8, hemoglobin 14.5. COVID and flu negative. ? Discussed case with pulmonology, continue DuoNebs every 4 hours. ? Continue methylprednisolone 60 mg IV twice daily. ? Continue on doxycycline 100 mg twice daily. ? Trelegy 100 inhaler daily. ? Repeat CBC, CMP, magnesium ordered for the morning. #Mood disorder ? Continue Lexapro 20 mg daily. #CAD #Chronic HFpEF ? BNP elevated at 642 ? Continue aspirin, statin, Bisoprolol 5 mg daily, Crestor 10 mg daily. ? Continue lasix 40mg IV daily. #Pulmonary hypertension #History of PE ? Continue home Eliquis 5mg BID. ? Echo 01/2024 with normal EF, preserved ejection fraction, Elevated RVSP. DVT prophylaxis: on Eliquis Full code Cardiac diet
[2024-05-28] MEDS: ACETAMINOPHEN 325MG TAB 650 MG PO (18:56)
[2024-05-28] MEDS: ATORVASTATIN 40MG TABLET 40 MG PO (20:59)
[2024-05-29] VITALS (31 sets, daily range): BP systolic 108–162; BP diastolic 68–95; PULSE 60–106; RESP 16–37; TEMP 36.6–36.9; O2SAT 90–99; BMI 25.0; BMI 25.3
[2024-05-29] MEDS: DOXYCYCLINE HYCLATE 100 MG in 0.9 % SODIUM CHLORIDE 250 ML 166.667 MG IV ×2 (01:10→13:55)
[2024-05-29] MEDS: IPRATROPIUM/ALBUTEROL 3 ML NEB IH ×6 (02:29→22:46)
[2024-05-29 05:47] LABS: Lymphocytes # 0.3 K/mm3 (0.7-4.5); Lymphocytes % 5.5 % (10-50); Mean Corpuscular HGB Conc 31.7 g/dL (31.8-35.4); Mean Platelet Volume 9.1 fl (7.4-10.4); Monocytes # 0.3 K/mm3 (0.1-1.0); Monocytes % 5.3 % (1.7-9.3); Neutrophils % 88.7 % (37.0-80.0); Platelet Count 176 K/mm3 (142-424); Red Blood Count 4.06 M/mm3 (4.60-6.20); Red Cell Distribution Width 12.9 % (11.5-17.5); White Blood Count 5.6 K/mm3 (4.8-10.8)
[2024-05-29 05:57] LABS: Albumin Level 3.8 g/dl (3.5-5.0); Chloride 95 mmol/L (98-107); Potassium 4.3 mmoL/L (3.5-5.1); Sodium 138 mmol/L (136-145)
[2024-05-29 06:00] LABS: Alanine Aminotransferase 23 U/L (12-78); Albumin/Globulin Ratio 1.5 (1.1-1.8); Alkaline Phosphatase 81 U/L (38-126); Aspartate Amino Transferase 33 U/L (17-59); Bilirubin,Total 0.3 mg/dl (0.2-1.3); Blood Urea Nitrogen 31 mg/dl (9-20); Calcium 8.6 mg/dl (8.4-10.2); Creatinine Clearance Estimated 80 mL/min (50-200); Estimated Glomerular Filt Rate 96 ml/min (>60); GFR (African American) 116 ML/MIN (>60); Globulin 2.6 g/dL (1.3-3.2); Glucose 110 mg/dl (74-100); Magnesium 2.1 mg/dl (1.6-2.3); Total Protein,Serum 6.4 g/dl (6.3-8.2)
[2024-05-29 06:07] LABS: Anion Gap 10.3 mEq/L (5-15); Carbon Dioxide 37 mmol/L (22.0-30.0)
[2024-05-29] MEDS: BUDESONIDE 0.5MG/2ML NEB 0.5 MG IH ×2 (06:29→18:40)
[2024-05-29 07:22] LABS: Lactate Venous 1.2 mmol/L (0.4-2.0); VBG Base Excess 7.5 mmol/L (-2.4-2.3); VBG HCO3 33.9 mmol/L (23-30); VBG PCO2 70.9 mmol/L (35-51); VBG PO2 38.1 mmol/L (28-40); VBG Total CO2 36.1 mmol/L (23-27)
[2024-05-29] MEDS: APIXABAN 5MG TABLET 5 MG PO ×2 (08:10→20:19)
[2024-05-29] MEDS: METHYLPREDNISOLONE SOD SUCC 125MG VIAL 60 MG IV ×2 (08:10→20:19)
[2024-05-29] MEDS: ASPIRIN EC 81MG TABLET 81 MG PO (08:10)
[2024-05-29] MEDS: BISOPROLOL 5MG TABLET 5 MG PO (08:10)
[2024-05-29] MEDS: FUROSEMIDE 40MG/4ML VIAL 40 MG IV (08:10)
[2024-05-29] MEDS: CITALOPRAM 40MG TABLET 40 MG PO (08:10)
[2024-05-29] MEDS: FOLIC ACID 1MG TABLET 1 MG PO (08:11)
--- NOTE | 2024-05-29 09:39 | P.PN_ITS ---
Subjective *Date: 05/29/24 *Time: 11:59 Interval history: No acute respiratory vents overnight. Patient denies any significant improvement in his respiratory status Pulmonology Exam Inpatient Vital signs and Labs for Last 24 Hours: Temp Pulse Resp BP Pulse Ox O2 Del Method O2 Flow Rate 97.8 F 102 H 31 H 159/95 H 97 BiPAP 5 05/29/24 04:00 05/29/24 08:02 05/29/24 08:00 05/29/24 08:00 05/29/24 08:00 05/29/24 09:00 05/29/24 08:00 FiO2 30 05/29/24 08:08 Laboratory Results - last 24 hr 05/29/24 05:25: WBC 5.6 D, RBC 4.06 L, Hgb 13.0 L, Hct 41.0 L, MCV 101.0 H, MCH 32.0 H, MCHC 31.7 L, RDW 12.9, Plt Count 176, MPV 9.1, Neut % (Auto) 88.7 H, Lymph % (Auto) 5.5 L, [place] % (Auto) 5.3, Eos % (Auto) 0.0 L, Baso % (Auto) 0.0 L , Neut # (Auto) 5.0, Lymph # (Auto) 0.3 L, [place] # (Auto) 0.3, Eos # (Auto) 0.0, Baso # (Auto) 0.0, Sodium 138, Potassium 4.3, Chloride 95 L, Carbon Dioxide 37 H , Anion Gap 10.3, BUN 31 H D, Creatinine 0.80, Estimated Creat Clear 80, Estimated GFR 96, Est GFR ( Amer) 116, Glucose 110 H, Calcium 8.6, Magnesium 2.1, Total Bilirubin 0.3, AST 33, ALT 23, Alkaline Phosphatase 81, Total Protein 6.4, Albumin 3.8, Globulin 2.6, Albumin/Globulin Ratio 1.5 05/29/24 06:00: VBG pH 7.30 L, VBG pCO2 70.9 H, VBG pO2 38.1, VBG HCO3 33.9 H, VBG Total CO2 36.1 H, VBG O2 Saturation 70.0, VBG Base Excess 7.5 H, VBG Lactic Acid 1.2 Temp Pulse Resp BP Pulse Ox O2 Del Method O2 Flow Rate 97.4 F L 86 29 H 133/85 95 BiPAP 4 05/27/24 13:14 05/27/24 12:42 05/27/24 12:42 05/27/24 12:42 05/27/24 12:00 05/27/24 13:14 05/27/24 08:00 FiO2 30 05/27/24 13:14 Laboratory Results - last 24 hr 05/27/24 07:43: WBC 5.9, RBC 4.56 L, Hgb 14.5, Hct 46.4, MCV 101.8 H, MCH 31.8 H , MCHC 31.3 L, RDW 12.6, Plt Count 180, MPV 8.7, Neut % (Auto) 83.8 H, Lymph % (Auto) 7.1 L, [place] % (Auto) 8.1, Eos % (Auto) 0.2, Baso % (Auto) 0.3, Neut # (Auto) 5.0, Lymph # (Auto) 0.4 L, [place] # (Auto) 0.5, Eos # (Auto) 0.0, Baso # (Auto) 0.0, Sodium 137, Potassium 4.0, Chloride 89 L, Carbon Dioxide 40 H, Anion Gap 12.0, BUN 18, Creatinine 1.10, Estimated Creat Clear 76, Estimated GFR 67, Est GFR ( Amer) 81, Glucose 130 H, Calcium 8.5, Total Bilirubin 0.4, AST 38, ALT 26, Alkaline Phosphatase 99, Troponin I 0.02, NT-Pro-B Natriuret Pep 624 H, Total Protein 7.8 D, Albumin 4.5, Globulin 3.3 H, Albumin/Globulin Ratio 1.4 05/27/24 07:59: SARS-CoV-2 (PCR) Not detected, Influenza A Untype (PCR) Not detected, Influenza Type B (PCR) Not detected 05/27/24 08:04: VBG pH 7.11 L, VBG pCO2 113.8 H, VBG pO2 36.7, VBG HCO3 34.9 H, VBG Total CO2 38.4 H, VBG O2 Saturation 62.1, VBG Base Excess 5.4 H, VBG Lactic Acid 2.1 H 05/27/24 09:51: VBG pH 7.23 L, VBG pCO2 86.1 H, VBG pO2 48.2 H, VBG HCO3 34.9 H, VBG Total CO2 37.6 H, VBG O2 Saturation 82.3 H, VBG Base Excess 7.3 H, VBG Lactic Acid 2.4 H 05/27/24 10:50: VBG pH 7.20 L, VBG pCO2 89.4 H, VBG pO2 45.4 H, VBG HCO3 34.1 H, VBG Total CO2 36.8 H, VBG O2 Saturation 77.2 H, VBG Base Excess 6.0 H, VBG Lactic Acid 3.1 H 05/27/24 11:03: Troponin I 0.03 I & O for Labs for Last 24 Hours: Intake & Output 05/26/24 05/27/24 05/28/24 05/29/24 23:59 23:59 23:59 23:59 Intake Total 400 / 525 955 / 955 360 / 360 Output Total 400 / 400 1650 / 1650 550 / 550 Balance 0 / 125 -695 / -695 -190 / -190 Weight 179 lb 3 oz 182 lb 15.739 oz 176 lb 12.972 oz Intake & Output 05/24/24 05/25/24 05/26/24 05/27/24 23:59 23:59 23:59 23:59 Weight 179 lb 3 oz Microbiology Reports for the Last 24 Hours: Microbiology 05/28/24 11:23 Sputum - Expectorated Sputum Gram Stain - Final 05/27/24 09:50 Blood Blood Culture - Preliminary NO GROWTH AFTER 24 HOURS 05/27/24 09:50 Blood Blood Culture - Preliminary NO GROWTH AFTER 24 HOURS Constitutional: Present severe distress Head: Present normocephalic and atraumatic ENT: Present normal exam, normal oropharynx and mucous membranes moist Neck: Present normal inspection and full ROM Respiratory: Present prolonged expiratory phase, respiratory distress, wheezes and diminished air movement; Absent normal respiratory effort or able to speak in complete sentences Cardiac: Present S1/S2, Tachycardia and radial pulses present GI: Present soft and distention; Absent tenderness or guarding Skin: Present intact; Absent cyanosis or jaundice Neuro: Present alert, awake and oriented x 3 Extremities: Present normal inspection; Absent clubbing or cyanosis Psychiatric: Present normal affect and cooperative Assessment and Plan *Assessment and plan (1) Acute exacerbation of chronic obstructive pulmonary disease: Status: Acute Category: Medical Code(s): J44.1 - Chronic obstructive pulmonary disease with (acute) exacerbation (2) Acute hypercapnic respiratory failure: Status: Acute Category: Medical Code(s): J96.02 - Acute respiratory failure with hypercapnia Plan Mr. Cortez is a 68-year-old male current smoker greater than [id number] smoking history recurrent hypercarbic respiratory failure with central worsening respiratory vents found to be in hypercarbic respiratory failure needing noninvasive ventilator therapy and pulmonary was called for further evaluation and management. Afebrile. Hemodynamically stable. No evidence of leukocytosis. COVID-19 and flu PCR panel negative. Chest x-ray upon admission, clear with no dense consolidative/airspace changes. Blood gas upon admission severe hypercarbic respiratory failure with a pH of 7.11 and pCO2 of 113.8. Saturating clinically showed improvement in the pH of 7.20 and a pCO2 of 89.4. On initial examination bilateral decreased breath sounds with significant wheezing. Severe respiratory distress unable to talk in full sentences. Interaval Update: No acute respiratory events overnight. Venous blood gas from this morning showed worsening hypercarbic respiratory failure with pH of 7.3 and a pCO2 of 70.9, venous Plan: Continue BiPAP therapy for concerning worsening hypercarbic respiratory failure. Currently on FiO2 of 21%. Will follow. Patient will need noninvasive ventilator therapy BiPAP upon discharge for his chronic hypercarbic respiratory failure most likely from his COPD. DuoNebs every 4 hours along with Pulmicort Q12 scheduled Continue methylprednisolone 60 mg IV every 12 hours Doxycycline 100 mg IV twice daily
[2024-05-29] MEDS: SODIUM CHLORIDE 0.9% 10ML VIAL 10 ML IV (13:32)
[2024-05-29] MEDS: LORazepam 2MG/ML VIAL 0.5 MG IV (13:32)
[2024-05-29] MEDS: guaiFENesin 600 MG TAB.ER.12H PO (13:55)
[2024-05-29 15:10] LABS: Lactate Venous 1.2 mmol/L (0.4-2.0); VBG Base Excess 10.4 mmol/L (-2.4-2.3); VBG HCO3 34.8 mmol/L (23-30); VBG Oxygen Saturation 99.2 % (50-70); VBG PCO2 54.8 mmol/L (35-51); VBG PH 7.42 mmol/L (7.31-7.41); VBG PO2 149.8 mmol/L (28-40); VBG Total CO2 36.5 mmol/L (23-27)
--- NOTE | 2024-05-29 15:18 | PC.NURSE ---
Patient on 3LNC or bipap when feeling short of breath. Heart rate 180-190's randomly. MD aware, metoprolol prn if needed but patient has not sustained heart rate. Sinus tach on monitor. Patient remained alert and oriented.
--- NOTE | 2024-05-29 17:26 | P.PN_ITS ---
Subjective *Date: 05/29/24 *Time: 17:26 Interval history: Improving gradually, continues to have restricted air movement with wheezing. Will do overnight pulse ox test and follow-up morning ABG to qualify for BiPAP nightly at home. Exam Data for Last 24 hours Vital signs and Labs for Last 24 Hours: Temp Pulse Resp BP Pulse Ox O2 Del Method O2 Flow Rate 97.8 F 106 H 37 H 162/87 H 93 L Nasal Cannula 3 05/29/24 12:00 05/29/24 14:01 05/29/24 14:01 05/29/24 14:01 05/29/24 14:01 05/29/24 15:00 05/29/24 15:00 FiO2 21 05/29/24 10:25 Laboratory Results - last 24 hr 05/29/24 05:25: WBC 5.6 D, RBC 4.06 L, Hgb 13.0 L, Hct 41.0 L, MCV 101.0 H, MCH 32.0 H, MCHC 31.7 L, RDW 12.9, Plt Count 176, MPV 9.1, Neut % (Auto) 88.7 H, Lymph % (Auto) 5.5 L, [place] % (Auto) 5.3, Eos % (Auto) 0.0 L, Baso % (Auto) 0.0 L , Neut # (Auto) 5.0, Lymph # (Auto) 0.3 L, [place] # (Auto) 0.3, Eos # (Auto) 0.0, Baso # (Auto) 0.0, Sodium 138, Potassium 4.3, Chloride 95 L, Carbon Dioxide 37 H , Anion Gap 10.3, BUN 31 H D, Creatinine 0.80, Estimated Creat Clear 80, Estimated GFR 96, Est GFR ( Amer) 116, Glucose 110 H, Calcium 8.6, Magnesium 2.1, Total Bilirubin 0.3, AST 33, ALT 23, Alkaline Phosphatase 81, Total Protein 6.4, Albumin 3.8, Globulin 2.6, Albumin/Globulin Ratio 1.5 05/29/24 06:00: VBG pH 7.30 L, VBG pCO2 70.9 H, VBG pO2 38.1, VBG HCO3 33.9 H, VBG Total CO2 36.1 H, VBG O2 Saturation 70.0, VBG Base Excess 7.5 H, VBG Lactic Acid 1.2 05/29/24 15:00: VBG pH 7.42 H, VBG pCO2 54.8 H, VBG pO2 149.8 H, VBG HCO3 34.8 H , VBG Total CO2 36.5 H, VBG O2 Saturation 99.2 H, VBG Base Excess 10.4 H, VBG Lactic Acid 1.2 I & O for Last 24 hours: Intake & Output 05/26/24 05/27/24 05/28/24 05/29/24 23:59 23:59 23:59 23:59 Intake Total 400 / 525 955 / 955 820 / 820 Output Total 400 / 400 1650 / 1650 550 / 550 Balance 0 / 125 -695 / -695 270 / 270 Weight 81.278 kg 83 kg 80.2 kg Microbiology Reports for the Last 24 Hours: Microbiology 05/27/24 09:50 Blood Blood Culture - Preliminary NO GROWTH AFTER 48 HOURS 05/27/24 09:50 Blood Blood Culture - Preliminary NO GROWTH AFTER 48 HOURS 05/28/24 11:23 Sputum - Expectorated Sputum Gram Stain - Final Constitutional Constitutional: no acute distress *Routine HEENT Exam Head: Present normocephalic Eye: Present EOMI and PERRL ENT: Present mucous membranes moist *Routine Neck Exam Neck: Present supple; Absent lymphadenopathy *Routine Respiratory Exam Respiratory: Present wheezes and diminished air movement; Absent CTA bilaterally *Routine Cardiovascular Exam Cardiovascular: Present RRR *Routine Abdominal Exam Abdominal: Present soft and normoactive bowel sounds; Absent tenderness *Routine Extremities Exam Extremities: Absent cyanosis, clubbing or edema *Routine Skin Exam Skin: Present warm; Absent rash *Routine Neurological Exam Neurological: Present alert and oriented X3 Assessment and Plan *Assessment and plan (1) Acute on chronic respiratory failure with hypoxia and hypercapnia: Status: Resolved Category: Medical Code(s): J96.21 - Acute and chronic respiratory failure with hypoxia; J96.22 - Acute and chronic respiratory failure with hypercapnia (2) Acute exacerbation of chronic obstructive pulmonary disease: Status: Acute Category: Medical Code(s): J44.1 - Chronic obstructive pulmonary disease with (acute) exacerbation (3) CAD (coronary artery disease): Status: Acute Category: Medical Code(s): I25.10 - Atherosclerotic heart disease of [place] coronary artery without angina pectoris (4) Smoking greater than 30 pack years: Status: Acute Category: Social Hx Code(s): F17.210 - Nicotine dependence, cigarettes, uncomplicated (5) Anxiety: Status: Acute Category: Medical Code(s): F41.9 - Anxiety disorder, unspecified (6) Pulmonary embolism: Status: Acute Qualifiers: Pulmonary embolism type: other Chronicity: acute Acute cor pulmonale presence: without acute cor pulmonale Qualified Code(s): I26.99 - Other pulmonary embolism without acute cor pulmonale Category: Medical Code(s): I26.99 - Other pulmonary embolism without acute cor pulmonale (7) Hypertension: Status: Acute Qualifiers: Hypertension type: primary hypertension Qualified Code(s): I10 - Essential (primary) hypertension Category: Medical Code(s): I10 - Essential (primary) hypertension (8) Hyperlipidemia: Status: Acute Qualifiers: Hyperlipidemia type: mixed hyperlipidemia Qualified Code(s): E78.2 - Mixed hyperlipidemia Category: Medical Code(s): E78.5 - Hyperlipidemia, unspecified (9) Tobacco dependence: Status: Acute Category: Medical Code(s): F17.200 - Nicotine dependence, unspecified, uncomplicated (10) Alcohol use disorder, severe, in early remission: Status: Inactive Category: Medical Code(s): F10.21 - Alcohol dependence, in remission Plan Patient is a 68-year-old male with past medical history of CAD, pulmonary embolism on Eliquis, COPD on 4 to 6 L nasal cannula at home, hypertension, hyperlipidemia who presents to the hospital due to shortness of breath. Shortness of breath is gotten worse over the past few days. His significant other was sick last week and now he has had increased cough and dyspnea. Discussed case with ER physician, request admission for hypercapnic respiratory failure. I agreed to admit for further management. Continue to wear BiPAP as he is responding appropriately with improvement in pH. Problems addressed as follows: #Acute metabolic encephalopathy #Acute hypoxic and hypercapnic respiratory failure #COPD exacerbation ? Initially presented with tachypnea, hypoxic and hypercapnic on blood gas with pH 7.11 and pCO2 of 113. CXR without acute infiltrates. ? Continues to have restricted air movement with wheezing, but stable on 3 L nasal cannula most of the day. ? VBG this morning again showed acute on chronic hypercapnic respiratory failure. Initiated on BiPAP with improvement and reassuring VBG in the afternoon. ? Discussed with pulmonology today, will need BiPAP nightly at home for chronic hypercapnic respiratory failure secondary to COPD. RT is coordinating overnight pulse ox test, will follow-up ABG tomorrow. ? Continues to have tachypnea, restricted air movement. Continues to be watcher. ? White count is stable at 5.6, hemoglobin 13. COVID and flu negative. ? Continue DuoNebs every 4 hours, Pulmicort twice daily, Solu-Medrol 60 mg daily. ? Continue doxycycline 100 mg twice daily. ? Repeat CBC, CMP, magnesium ordered for the morning. #Mood disorder ? Continue Lexapro 20 mg daily. #CAD #Chronic HFpEF ? BNP elevated at 642, without signs of volume overload. ? Continue aspirin, statin, Bisoprolol 5 mg daily, Crestor 10 mg daily. ? Continue lasix 40mg IV daily. #Pulmonary hypertension #History of PE ? Continue home Eliquis 5mg BID. ? Echo 01/2024 with normal EF, preserved ejection fraction, Elevated RVSP. DVT prophylaxis: on Eliquis Full code Cardiac diet
[2024-05-29] MEDS: ATORVASTATIN 40MG TABLET 40 MG PO (20:22)
--- NOTE | 2024-05-29 23:04 | PC.NURSE ---
RESP CARE NOTE: Pt placed on overnight pulse-ox on 3.5 lpm NC at this time.
[2024-05-30] VITALS (29 sets, daily range): BP systolic 118–172; BP diastolic 72–103; PULSE 58–722; RESP 18–35; TEMP 35.5–36.9; O2SAT 87–100; BMI 26.5
[2024-05-30] MEDS: DOXYCYCLINE HYCLATE 100 MG in 0.9 % SODIUM CHLORIDE 250 ML 166.667 MG IV ×2 (01:24→16:31)
[2024-05-30] MEDS: IPRATROPIUM/ALBUTEROL 3 ML NEB IH ×6 (02:10→21:36)
[2024-05-30 06:17] LABS: Hematocrit 43.9 % (42.0-52.0); Hemoglobin 13.5 g/dL (14.1-18.0); Lymphocytes # 0.3 K/mm3 (0.7-4.5); Lymphocytes % 7.3 % (10-50); Mean Corpuscular HGB Conc 30.8 g/dL (31.8-35.4); Mean Corpuscular Hemoglobin 31.3 pg (27.0-31.2); Mean Corpuscular Volume 101.9 fl (80-94); Mean Platelet Volume 9.1 fl (7.4-10.4); Monocytes # 0.2 K/mm3 (0.1-1.0); Monocytes % 4.3 % (1.7-9.3); Neutrophils # 4.1 K/mm3 (1.8-7.8); Neutrophils % 88.2 % (37.0-80.0); Platelet Count 175 K/mm3 (142-424); Red Blood Count 4.31 M/mm3 (4.60-6.20); Red Cell Distribution Width 12.7 % (11.5-17.5); White Blood Count 4.7 K/mm3 (4.8-10.8)
[2024-05-30] MEDS: BUDESONIDE 0.5MG/2ML NEB 0.5 MG IH ×2 (06:25→18:12)
[2024-05-30 06:35] LABS: ABG Base Excess 8.2 mmol/L (-2.4-2.3); ABG HCO3 34.8 mmhg (22.0-26.0); ABG Oxygen Saturation 98 % (90-100); ABG PH 7.29 mmol/L (7.35-7.45); ABG PO2 106.3 mmhg (80-100); ABG TCO2 37.1 mmhg (23-27)
[2024-05-30 06:37] LABS: Allen's Test acceptable; Oxygen 3.5 %
[2024-05-30 06:38] LABS: ABG PCO2 74.6 mmhg (35.0-45.0)
[2024-05-30 07:13] LABS: Alanine Aminotransferase 23 U/L (12-78); Albumin/Globulin Ratio 1.5 (1.1-1.8); Alkaline Phosphatase 70 U/L (38-126); Aspartate Amino Transferase 33 U/L (17-59); Bilirubin,Total 0.3 mg/dl (0.2-1.3); Blood Urea Nitrogen 38 mg/dl (9-20); Calcium 8.5 mg/dl (8.4-10.2); Chloride 98 mmol/L (98-107); Creatinine Clearance Estimated 84 mL/min (50-200); Estimated Glomerular Filt Rate 84 ml/min (>60); GFR (African American) 102 ML/MIN (>60); Globulin 2.7 g/dL (1.3-3.2); Glucose 155 mg/dl (74-100); Magnesium 2.1 mg/dl (1.6-2.3); Potassium 4.3 mmoL/L (3.5-5.1); Sodium 140 mmol/L (136-145); Total Protein,Serum 6.7 g/dl (6.3-8.2)
[2024-05-30 07:20] LABS: Anion Gap 10.3 mEq/L (5-15); Carbon Dioxide 36 mmol/L (22.0-30.0)
[2024-05-30] MEDS: BISOPROLOL 5MG TABLET 5 MG PO (08:15)
[2024-05-30] MEDS: FUROSEMIDE 40MG/4ML VIAL 40 MG IV (08:15)
[2024-05-30] MEDS: ASPIRIN EC 81MG TABLET 81 MG PO (08:15)
[2024-05-30] MEDS: METHYLPREDNISOLONE SOD SUCC 125MG VIAL 60 MG IV ×2 (08:15→20:54)
[2024-05-30] MEDS: CITALOPRAM 40MG TABLET 40 MG PO (08:15)
[2024-05-30] MEDS: FOLIC ACID 1MG TABLET 1 MG PO (08:15)
[2024-05-30] MEDS: APIXABAN 5MG TABLET 5 MG PO ×2 (08:15→20:54)
--- NOTE | 2024-05-30 09:24 | P.PN_ITS ---
Subjective *Date: 05/31/24 *Time: 13:26 Interval history: No acute respiratory vents overnight. Patient raises concerns regarding adequate mask fitting prior to discharge to use with his NIV. Pulmonology Exam Inpatient Vital signs and Labs for Last 24 Hours: Temp Pulse Resp BP Pulse Ox O2 Del Method O2 Flow Rate 97.4 F L 103 H 24 145/85 H 96 BiPAP 3 05/30/24 07:01 05/30/24 08:00 05/30/24 07:01 05/30/24 08:00 05/30/24 08:00 05/30/24 08:59 05/30/24 08:00 FiO2 50 05/30/24 06:46 Laboratory Results - last 24 hr 05/29/24 15:00: VBG pH 7.42 H, VBG pCO2 54.8 H, VBG pO2 149.8 H, VBG HCO3 34.8 H , VBG Total CO2 36.5 H, VBG O2 Saturation 99.2 H, VBG Base Excess 10.4 H, VBG Lactic Acid 1.2 05/30/24 05:33: WBC 4.7 L, RBC 4.31 L, Hgb 13.5 L, Hct 43.9, MCV 101.9 H, MCH 31.3 H, MCHC 30.8 L, RDW 12.7, Plt Count 175, MPV 9.1, Neut % (Auto) 88.2 H, Lymph % (Auto) 7.3 L, [place] % (Auto) 4.3, Eos % (Auto) 0.0 L, Baso % (Auto) 0.0 L , Neut # (Auto) 4.1, Lymph # (Auto) 0.3 L, [place] # (Auto) 0.2, Eos # (Auto) 0.0, Baso # (Auto) 0.0, Sodium 140, Potassium 4.3, Chloride 98, Carbon Dioxide 36 H, Anion Gap 10.3, BUN 38 H, Creatinine 0.90, Estimated Creat Clear 84, Estimated GFR 84, Est GFR ( Amer) 102, Glucose 155 H, Calcium 8.5, Magnesium 2.1, Total Bilirubin 0.3, AST 33, ALT 23, Alkaline Phosphatase 70, Total Protein 6.7, Albumin 4.0, Globulin 2.7, Albumin/Globulin Ratio 1.5 05/30/24 06:00: Specimen Source r radial, O2 % 3.5, ABG pH 7.29 L, ABG pCO2 74.6 H, ABG pO2 106.3 H, ABG HCO3 34.8 H, ABG Total CO2 37.1 H, ABG O2 Saturation 98, ABG Base Excess 8.2 H, Sukumar Test acceptable Temp Pulse Resp BP Pulse Ox O2 Del Method O2 Flow Rate 97.4 F L 86 29 H 133/85 95 BiPAP 4 05/27/24 13:14 05/27/24 12:42 05/27/24 12:42 05/27/24 12:42 05/27/24 12:00 05/27/24 13:14 05/27/24 08:00 FiO2 30 05/27/24 13:14 Laboratory Results - last 24 hr 05/27/24 07:43: WBC 5.9, RBC 4.56 L, Hgb 14.5, Hct 46.4, MCV 101.8 H, MCH 31.8 H , MCHC 31.3 L, RDW 12.6, Plt Count 180, MPV 8.7, Neut % (Auto) 83.8 H, Lymph % (Auto) 7.1 L, [place] % (Auto) 8.1, Eos % (Auto) 0.2, Baso % (Auto) 0.3, Neut # (Auto) 5.0, Lymph # (Auto) 0.4 L, [place] # (Auto) 0.5, Eos # (Auto) 0.0, Baso # (Auto) 0.0, Sodium 137, Potassium 4.0, Chloride 89 L, Carbon Dioxide 40 H, Anion Gap 12.0, BUN 18, Creatinine 1.10, Estimated Creat Clear 76, Estimated GFR 67, Est GFR ( Amer) 81, Glucose 130 H, Calcium 8.5, Total Bilirubin 0.4, AST 38, ALT 26, Alkaline Phosphatase 99, Troponin I 0.02, NT-Pro-B Natriuret Pep 624 H, Total Protein 7.8 D, Albumin 4.5, Globulin 3.3 H, Albumin/Globulin Ratio 1.4 05/27/24 07:59: SARS-CoV-2 (PCR) Not detected, Influenza A Untype (PCR) Not detected, Influenza Type B (PCR) Not detected 05/27/24 08:04: VBG pH 7.11 L, VBG pCO2 113.8 H, VBG pO2 36.7, VBG HCO3 34.9 H, VBG Total CO2 38.4 H, VBG O2 Saturation 62.1, VBG Base Excess 5.4 H, VBG Lactic Acid 2.1 H 05/27/24 09:51: VBG pH 7.23 L, VBG pCO2 86.1 H, VBG pO2 48.2 H, VBG HCO3 34.9 H, VBG Total CO2 37.6 H, VBG O2 Saturation 82.3 H, VBG Base Excess 7.3 H, VBG Lactic Acid 2.4 H 05/27/24 10:50: VBG pH 7.20 L, VBG pCO2 89.4 H, VBG pO2 45.4 H, VBG HCO3 34.1 H, VBG Total CO2 36.8 H, VBG O2 Saturation 77.2 H, VBG Base Excess 6.0 H, VBG Lactic Acid 3.1 H 05/27/24 11:03: Troponin I 0.03 I & O for Labs for Last 24 Hours: Intake & Output 05/27/24 05/28/24 05/29/24 05/30/24 23:59 23:59 23:59 23:59 Intake Total 400 / 525 955 / 955 1060 / 1110 410 / 410 Output Total 400 / 400 1650 / 1650 900 / 1100 500 / 500 Balance 0 / 125 -695 / -695 160 / 10 -90 / -90 Weight 179 lb 3 oz 182 lb 15.739 oz 176 lb 12.972 oz 185 lb 3.013 oz Intake & Output 05/24/24 05/25/24 05/26/24 05/27/24 23:59 23:59 23:59 23:59 Weight 179 lb 3 oz Microbiology Reports for the Last 24 Hours: Microbiology 05/27/24 09:50 Blood Blood Culture - Preliminary NO GROWTH AFTER 48 HOURS 05/27/24 09:50 Blood Blood Culture - Preliminary NO GROWTH AFTER 48 HOURS Constitutional: Present severe distress Head: Present normocephalic and atraumatic ENT: Present normal exam, normal oropharynx and mucous membranes moist Neck: Present normal inspection and full ROM Respiratory: Present prolonged expiratory phase, respiratory distress, wheezes and diminished air movement; Absent normal respiratory effort or able to speak in complete sentences Cardiac: Present S1/S2, Tachycardia and radial pulses present GI: Present soft and distention; Absent tenderness or guarding Skin: Present intact; Absent cyanosis or jaundice Neuro: Present alert, awake and oriented x 3 Extremities: Present normal inspection; Absent clubbing or cyanosis Psychiatric: Present normal affect and cooperative Assessment and Plan *Assessment and plan (1) Acute exacerbation of chronic obstructive pulmonary disease: Status: Acute Category: Medical Code(s): J44.1 - Chronic obstructive pulmonary disease with (acute) exacerbation (2) Acute hypercapnic respiratory failure: Status: Acute Category: Medical Code(s): J96.02 - Acute respiratory failure with hypercapnia Plan Mr. Cortez is a 68-year-old male current smoker greater than [id number] smoking history recurrent hypercarbic respiratory failure with central worsening respiratory vents found to be in hypercarbic respiratory failure needing noninvasive ventilator therapy and pulmonary was called for further evaluation and management. Afebrile. Hemodynamically stable. No evidence of leukocytosis. COVID-19 and flu PCR panel negative. Chest x-ray upon admission, clear with no dense consolidative/airspace changes. Blood gas upon admission severe hypercarbic respiratory failure with a pH of 7.11 and pCO2 of 113.8. Saturating clinically showed improvement in the pH of 7.20 and a pCO2 of 89.4. On initial examination bilateral decreased breath sounds with significant wheezing. Severe respiratory distress unable to talk in full sentences. Interaval Update: No acute respiratory events overnight. Off BiPAP overnight to qualify for NIV upon discharge. Worsening hypercarbic respiratory failure this morning with a pH of 7.29 and pCO2 74.6. Placed on BiPAP again. Plan: Continue BiPAP therapy for concerning worsening hypercarbic respiratory failure. Patient will need noninvasive ventilator therapy BiPAP at 8/18 and FiO2 of 25% upon discharge for his chronic hypercarbic respiratory failure most likely from his COPD. Continue oxygen supplementation to maintain O2 saturation of 90 to 95% Trelegy 100 inhaler along with DuoNebs 4 times daily as needed Wean prednisone to 40 mg daily to complete a total of 5-day course Doxycycline 100 mg IV twice daily for a total of 5 days # Thank you for involving pulmonary in this patient care. Will follow the patient in pulmonary clinic in 2 to 3 weeks post discharge
--- NOTE | 2024-05-30 10:21 | EXP.PHA.PN ---
Subjective *Date: 05/30/24 *Time: 10:21 Medical Exam Vital signs and Labs for Last 24 Hours: Vital Signs Temp Pulse Resp BP Pulse Ox O2 Del Method O2 Flow Rate 05/30/24 09:41 72 05/30/24 09:41 71 05/30/24 09:41 05/30/24 08:59 BiPAP 05/30/24 08:00 Nasal Cannula 3 05/30/24 08:00 145/85 H 05/30/24 08:00 103 H 96 05/30/24 07:01 97.4 F L 74 24 99 BiPAP 05/30/24 07:01 139/84 05/30/24 07:00 69 99 05/30/24 06:46 05/30/24 06:32 69 05/30/24 06:32 66 05/30/24 06:32 98 Nasal Cannula 3.5 05/30/24 06:27 Nasal Cannula 3.5 05/30/24 06:00 66 20 152/89 H 96 Nasal Cannula 3.5 05/30/24 05:13 86 18 145/90 H 95 Nasal Cannula 3.5 05/30/24 05:00 69 19 151/100 H 95 Nasal Cannula 3.5 05/30/24 05:00 Vapotherm 40 05/30/24 04:00 97.9 F 05/30/24 04:00 722 H 05/30/24 04:00 145/84 H 05/30/24 04:00 68 20 98 05/30/24 03:03 79 27 H 96 05/30/24 03:03 158/103 H 05/30/24 03:01 70 24 93 L 05/30/24 03:00 69 21 161/98 H 95 05/30/24 03:00 Nasal Cannula 3.5 05/30/24 02:15 70 05/30/24 02:15 69 05/30/24 02:00 68 25 H 143/100 H 95 Nasal Cannula 3.5 05/30/24 01:20 Nasal Cannula 3.5 05/30/24 01:01 77 29 H 154/90 H 97 Nasal Cannula 3.5 05/30/24 00:00 98.4 F 05/30/24 00:00 84 05/29/24 23:55 94 H 23 143/92 H 91 L Nasal Cannula 3.5 05/29/24 23:25 Nasal Cannula 3.5 05/29/24 22:47 69 05/29/24 22:47 61 05/29/24 22:15 BiPAP 05/29/24 22:00 64 24 117/68 99 BiPAP 05/29/24 21:00 BiPAP 05/29/24 20:00 BiPAP 05/29/24 20:00 97.8 F 78 19 108/81 L 97 05/29/24 20:00 78 05/29/24 19:26 82 20 128/77 98 BiPAP 05/29/24 19:06 101 H 29 H 98 05/29/24 18:51 Nasal Cannula 3 05/29/24 18:47 88 05/29/24 18:47 83 05/29/24 18:47 96 Nasal Cannula 3 05/29/24 18:00 145/83 H 05/29/24 18:00 91 H 37 H 95 Nasal Cannula 3 05/29/24 17:00 Nasal Cannula 3 05/29/24 16:00 98.4 F 05/29/24 16:00 159/88 H 05/29/24 16:00 88 32 H 90 L Nasal Cannula 3 05/29/24 16:00 84 05/29/24 15:00 Nasal Cannula 3 05/29/24 14:01 106 H 37 H 93 L 05/29/24 14:01 162/87 H 05/29/24 14:00 Nasal Cannula 3 05/29/24 14:00 103 H 31 H 93 L Nasal Cannula 05/29/24 13:22 89 05/29/24 13:22 80 05/29/24 13:00 Nasal Cannula 3 05/29/24 12:00 80 05/29/24 12:00 97.8 F 63 26 H 124/83 92 L Nasal Cannula 3 05/29/24 11:00 71 30 H 130/83 92 L BiPAP 25 05/29/24 11:00 BiPAP 05/29/24 10:25 71 05/29/24 10:25 72 05/29/24 10:25 FiO2 05/30/24 09:41 05/30/24 09:41 05/30/24 09:41 25 05/30/24 08:59 05/30/24 08:00 05/30/24 08:00 05/30/24 08:00 05/30/24 07:01 05/30/24 07:01 05/30/24 07:00 05/30/24 06:46 50 05/30/24 06:32 05/30/24 06:32 05/30/24 06:32 05/30/24 06:27 05/30/24 06:00 05/30/24 05:13 05/30/24 05:00 05/30/24 05:00 05/30/24 04:00 05/30/24 04:00 05/30/24 04:00 05/30/24 04:00 05/30/24 03:03 05/30/24 03:03 05/30/24 03:01 05/30/24 03:00 05/30/24 03:00 05/30/24 02:15 05/30/24 02:15 05/30/24 02:00 05/30/24 01:20 05/30/24 01:01 05/30/24 00:00 05/30/24 00:00 05/29/24 23:55 05/29/24 23:25 05/29/24 22:47 05/29/24 22:47 05/29/24 22:15 05/29/24 22:00 05/29/24 21:00 05/29/24 20:00 30 05/29/24 20:00 05/29/24 20:00 05/29/24 19:26 05/29/24 19:06 05/29/24 18:51 05/29/24 18:47 05/29/24 18:47 05/29/24 18:47 05/29/24 18:00 05/29/24 18:00 05/29/24 17:00 05/29/24 16:00 05/29/24 16:00 05/29/24 16:00 05/29/24 16:00 05/29/24 15:00 05/29/24 14:01 05/29/24 14:01 05/29/24 14:00 05/29/24 14:00 05/29/24 13:22 05/29/24 13:22 05/29/24 13:00 05/29/24 12:00 05/29/24 12:00 05/29/24 11:00 05/29/24 11:00 05/29/24 10:25 05/29/24 10:25 05/29/24 10:25 21 Intake and Output 05/29/24 05/30/24 05/30/24 23:59 07:59 15:59 Intake Total 490 / 1110 50 / 410 360 / 410 Output Total 350 / 1100 500 / 500 0 / 500 Balance 140 / 10 -450 / -90 360 / -90 Intake: Intake, Oral Amount 240 / 860 50 / 410 360 / 410 Intake, Total IV Amount 250 / 250 Doxycycline Hyclate 100 mg In 0 250 / 250 .9 % Sodium Chloride 250 ml @ 166.667 mls/hr IV Q12H [facility] Rx#: [id number] Output: Output, Urine Amount 350 / 1100 500 / 500 0 / 500 Other: Number of Voids 0 Number of Unmeasured Voids 1 0 Weight 84 kg Patient Weight 05/30/24 23:59 Weight 84 kg Laboratory Results - last 24 hr 05/29/24 15:00: VBG pH 7.42 H, VBG pCO2 54.8 H, VBG pO2 149.8 H, VBG HCO3 34.8 H, VBG Total CO2 36.5 H, VBG O2 Saturation 99.2 H, VBG Base Excess 10.4 H, VBG Lactic Acid 1.2 05/30/24 05:33: WBC 4.7 L, RBC 4.31 L, Hgb 13.5 L, Hct 43.9, MCV 101.9 H, MCH 31.3 H, MCHC 30.8 L, RDW 12.7, Plt Count 175, MPV 9.1, Neut % (Auto) 88.2 H, Lymph % (Auto) 7.3 L, [place] % (Auto) 4.3, Eos % (Auto) 0.0 L, Baso % (Auto) 0.0 L, Neut # (Auto) 4.1, Lymph # (Auto) 0.3 L, [place] # (Auto) 0.2, Eos # (Auto) 0.0, Baso # (Auto) 0.0, Sodium 140, Potassium 4.3, Chloride 98, Carbon Dioxide 36 H, Anion Gap 10.3, BUN 38 H, Creatinine 0.90, Estimated Creat Clear 84, Estimated GFR 84, Est GFR ( Amer) 102, Glucose 155 H, Calcium 8.5, Magnesium 2.1, Total Bilirubin 0.3, AST 33, ALT 23, Alkaline Phosphatase 70, Total Protein 6.7, Albumin 4.0, Globulin 2.7, Albumin/Globulin Ratio 1.5 05/30/24 06:00: Specimen Source r radial, O2 % 3.5, ABG pH 7.29 L, ABG pCO2 74.6 H, ABG pO2 106.3 H, ABG HCO3 34.8 H, ABG Total CO2 37.1 H, ABG O2 Saturation 98, ABG Base Excess 8.2 H, Sukumar Test acceptable I & O for Labs for Last 24 Hours: Intake & Output 05/27/24 05/28/24 05/29/24 05/30/24 23:59 23:59 23:59 23:59 Intake Total 400 / 525 955 / 955 1060 / 1110 410 / 410 Output Total 400 / 400 1650 / 1650 900 / 1100 500 / 500 Balance 0 / 125 -695 / -695 160 / 10 -90 / -90 Weight 81.278 kg 83 kg 80.2 kg 84 kg Microbiology Reports for the Last 24 Hours: Microbiology 05/27/24 09:50 Blood Blood Culture - Preliminary NO GROWTH AFTER 48 HOURS 05/27/24 09:50 Blood Blood Culture - Preliminary NO GROWTH AFTER 48 HOURS The patient's infection will respond to the chosen ABx?: Yes Is the patient receiving the right drug, dose, and route?: Yes Could a more targeted ABx be ordered?: No (WBC WNL, BLD CX - X2, SPUTUM PENDING.)
[2024-05-30] MEDS: POLYETHYLENE GLYCOL 3350 17 GM PACKET PO (12:27)
--- NOTE | 2024-05-30 15:00 | PC.NURSE ---
pt was not tolerating 3lnc well. saturation was 73% and pt became very anxious. Placed back on bipap. saturation now 93%
--- NOTE | 2024-05-30 18:49 | P.PN_ITS ---
Subjective *Date: 05/30/24 *Time: 18:49 Interval history: Continues to slowly improve, having anxiety spells intermittently. Requiring BiPAP overnight. Exam Data for Last 24 hours Vital signs and Labs for Last 24 Hours: Temp Pulse Resp BP Pulse Ox O2 Del Method O2 Flow Rate 97.7 F 80 26 H 118/85 93 L BiPAP 3 05/30/24 12:00 05/30/24 16:00 05/30/24 12:01 05/30/24 12:01 05/30/24 16:00 05/30/24 17:00 05/30/24 13:00 FiO2 25 05/30/24 09:41 Laboratory Results - last 24 hr 05/30/24 05:33: WBC 4.7 L, RBC 4.31 L, Hgb 13.5 L, Hct 43.9, MCV 101.9 H, MCH 31.3 H, MCHC 30.8 L, RDW 12.7, Plt Count 175, MPV 9.1, Neut % (Auto) 88.2 H, Lymph % (Auto) 7.3 L, [place] % (Auto) 4.3, Eos % (Auto) 0.0 L, Baso % (Auto) 0.0 L , Neut # (Auto) 4.1, Lymph # (Auto) 0.3 L, [place] # (Auto) 0.2, Eos # (Auto) 0.0, Baso # (Auto) 0.0, Sodium 140, Potassium 4.3, Chloride 98, Carbon Dioxide 36 H, Anion Gap 10.3, BUN 38 H, Creatinine 0.90, Estimated Creat Clear 84, Estimated GFR 84, Est GFR ( Amer) 102, Glucose 155 H, Calcium 8.5, Magnesium 2.1, Total Bilirubin 0.3, AST 33, ALT 23, Alkaline Phosphatase 70, Total Protein 6.7, Albumin 4.0, Globulin 2.7, Albumin/Globulin Ratio 1.5 05/30/24 06:00: Specimen Source r radial, O2 % 3.5, ABG pH 7.29 L, ABG pCO2 74.6 H, ABG pO2 106.3 H, ABG HCO3 34.8 H, ABG Total CO2 37.1 H, ABG O2 Saturation 98, ABG Base Excess 8.2 H, Sukumar Test acceptable I & O for Last 24 hours: Intake & Output 02/24/25 02/25/25 02/26/25 02/27/25 23:59 23:59 23:59 23:59 Intake Total 400 / 525 955 / 955 1060 / 1110 770 / 770 Output Total 400 / 400 1650 / 1650 900 / 1100 950 / 950 Balance 0 / 125 -695 / -695 160 / 10 -180 / -180 Weight 81.278 kg 83 kg 80.2 kg 84 kg Microbiology Reports for the Last 24 Hours: Microbiology 05/28/24 11:23 Sputum - Expectorated Sputum Gram Stain - Final 05/28/24 11:23 Sputum - Expectorated Sputum Sputum Culture - Final Constitutional Constitutional: no acute distress *Routine HEENT Exam Head: Present normocephalic Eye: Present EOMI and PERRL ENT: Present mucous membranes moist *Routine Neck Exam Neck: Present supple; Absent lymphadenopathy *Routine Respiratory Exam Respiratory: Present wheezes and diminished air movement; Absent CTA bilaterally *Routine Cardiovascular Exam Cardiovascular: Present RRR *Routine Abdominal Exam Abdominal: Present soft and normoactive bowel sounds; Absent tenderness *Routine Extremities Exam Extremities: Absent cyanosis, clubbing or edema *Routine Skin Exam Skin: Present warm; Absent rash *Routine Neurological Exam Neurological: Present alert and oriented X3 Assessment and Plan *Assessment and plan (1) Acute on chronic respiratory failure with hypoxia and hypercapnia: Status: Resolved Category: Medical Code(s): J96.21 - Acute and chronic respiratory failure with hypoxia; J96.22 - Acute and chronic respiratory failure with hypercapnia (2) Acute exacerbation of chronic obstructive pulmonary disease: Status: Acute Category: Medical Code(s): J44.1 - Chronic obstructive pulmonary disease with (acute) exacerbation (3) CAD (coronary artery disease): Status: Acute Category: Medical Code(s): I25.10 - Atherosclerotic heart disease of [place] coronary artery without angina pectoris (4) Smoking greater than 30 pack years: Status: Acute Category: Social Hx Code(s): F17.210 - Nicotine dependence, cigarettes, uncomplicated (5) Anxiety: Status: Acute Category: Medical Code(s): F41.9 - Anxiety disorder, unspecified (6) Pulmonary embolism: Status: Acute Qualifiers: Pulmonary embolism type: other Chronicity: acute Acute cor pulmonale presence: without acute cor pulmonale Qualified Code(s): I26.99 - Other pulmonary embolism without acute cor pulmonale Category: Medical Code(s): I26.99 - Other pulmonary embolism without acute cor pulmonale (7) Hypertension: Status: Acute Qualifiers: Hypertension type: primary hypertension Qualified Code(s): I10 - Essential (primary) hypertension Category: Medical Code(s): I10 - Essential (primary) hypertension (8) Hyperlipidemia: Status: Acute Qualifiers: Hyperlipidemia type: mixed hyperlipidemia Qualified Code(s): E78.2 - Mixed hyperlipidemia Category: Medical Code(s): E78.5 - Hyperlipidemia, unspecified (9) Tobacco dependence: Status: Acute Category: Medical Code(s): F17.200 - Nicotine dependence, unspecified, uncomplicated (10) Alcohol use disorder, severe, in early remission: Status: Inactive Category: Medical Code(s): F10.21 - Alcohol dependence, in remission Plan Patient is a 68-year-old male with past medical history of CAD, pulmonary embolism on Eliquis, COPD on 4 to 6 L nasal cannula at home, hypertension, hyperlipidemia who presents to the hospital due to shortness of breath. Shortness of breath is gotten worse over the past few days. His significant other was sick last week and now he has had increased cough and dyspnea. Discussed case with ER physician, request admission for hypercapnic respiratory failure. I agreed to admit for further management. Continue to wear BiPAP as he is responding appropriately with improvement in pH. Problems addressed as follows: #Acute metabolic encephalopathy #Acute hypoxic and hypercapnic respiratory failure #COPD exacerbation ? Initially presented with tachypnea, hypoxic and hypercapnic on blood gas with pH 7.11 and pCO2 of 113. CXR without acute infiltrates. ? Continues to have restricted air movement with wheezing, but stable on 3 L nasal cannula most of the day. ? ABG showed acute hypercapnia after overnight pulse ox test, improved with BiPAP. ? Otherwise doing well with 3 L throughout the day. Did have anxiety this afternoon, increased work of breathing which also improved with BiPAP. ? Continues to have tachypnea, restricted air movement. Continues to be watcher. ? White count is stable at 5.6, hemoglobin 13. COVID and flu negative. ? Continue DuoNebs every 4 hours, Pulmicort twice daily, Solu-Medrol 60 mg daily. ? Continue doxycycline 100 mg twice daily. ? Repeat CBC, CMP, magnesium ordered for the morning. #Mood disorder ? Continue Lexapro 20 mg daily. #CAD #Chronic HFpEF ? BNP elevated at 642, without signs of volume overload. ? Continue aspirin, statin, Bisoprolol 5 mg daily, Crestor 10 mg daily. ? Continue lasix 40mg IV daily. #Pulmonary hypertension #History of PE ? Continue home Eliquis 5mg BID. ? Echo 01/2024 with normal EF, preserved ejection fraction, Elevated RVSP. DVT prophylaxis: on Eliquis Full code Cardiac diet
[2024-05-30] MEDS: ATORVASTATIN 40MG TABLET 40 MG PO (20:54)
[2024-05-31] VITALS (18 sets, daily range): BP systolic 132–181; BP diastolic 75–98; PULSE 63–97; RESP 18–31; TEMP 35.7–36.8; O2SAT 92–99; BMI 26.5
[2024-05-31] MEDS: IPRATROPIUM/ALBUTEROL 3 ML NEB IH ×6 (01:40→22:21)
[2024-05-31] MEDS: DOXYCYCLINE HYCLATE 100 MG in 0.9 % SODIUM CHLORIDE 250 ML 166.667 MG IV ×2 (02:07→14:35)
[2024-05-31] MEDS: BUDESONIDE 0.5MG/2ML NEB 0.5 MG IH ×2 (06:25→18:32)
[2024-05-31 07:00] LABS: Hematocrit 45.9 % (42.0-52.0); Hemoglobin 13.8 g/dL (14.1-18.0); Lymphocytes # 0.5 K/mm3 (0.7-4.5); Lymphocytes % 10.2 % (10-50); Mean Corpuscular HGB Conc 30.1 g/dL (31.8-35.4); Mean Corpuscular Hemoglobin 31.2 pg (27.0-31.2); Mean Corpuscular Volume 103.6 fl (80-94); Monocytes # 0.4 K/mm3 (0.1-1.0); Monocytes % 8.3 % (1.7-9.3); Neutrophils # 3.8 K/mm3 (1.8-7.8); Neutrophils % 81.3 % (37.0-80.0); Platelet Count 179 K/mm3 (142-424); Red Blood Count 4.43 M/mm3 (4.60-6.20); Red Cell Distribution Width 12.8 % (11.5-17.5); White Blood Count 4.7 K/mm3 (4.8-10.8)
[2024-05-31 07:17] LABS: Alanine Aminotransferase 24 U/L (12-78); Albumin Level 3.9 g/dl (3.5-5.0); Albumin/Globulin Ratio 1.5 (1.1-1.8); Alkaline Phosphatase 66 U/L (38-126); Aspartate Amino Transferase 29 U/L (17-59); Bilirubin,Total 0.3 mg/dl (0.2-1.3); Blood Urea Nitrogen 43 mg/dl (9-20); Calcium 8.8 mg/dl (8.4-10.2); Chloride 97 mmol/L (98-107); Creatinine Clearance Estimated 84 mL/min (50-200); Estimated Glomerular Filt Rate 74 ml/min (>60); GFR (African American) 90 ML/MIN (>60); Globulin 2.6 g/dL (1.3-3.2); Glucose 114 mg/dl (74-100); Magnesium 2.2 mg/dl (1.6-2.3); Potassium 4.7 mmoL/L (3.5-5.1); Sodium 143 mmol/L (136-145); Total Protein,Serum 6.5 g/dl (6.3-8.2)
[2024-05-31 08:06] LABS: Anion Gap 11.7 mEq/L (5-15); Carbon Dioxide 39 mmol/L (22.0-30.0)
[2024-05-31] MEDS: METHYLPREDNISOLONE SOD SUCC 125MG VIAL 60 MG IV ×2 (08:21→20:09)
[2024-05-31] MEDS: APIXABAN 5MG TABLET 5 MG PO ×2 (08:21→20:08)
[2024-05-31] MEDS: ASPIRIN EC 81MG TABLET 81 MG PO (08:21)
[2024-05-31] MEDS: CITALOPRAM 40MG TABLET 40 MG PO (08:21)
[2024-05-31] MEDS: BISOPROLOL 5MG TABLET 5 MG PO (08:21)
[2024-05-31] MEDS: FUROSEMIDE 40MG/4ML VIAL 40 MG IV (08:21)
[2024-05-31] MEDS: guaiFENesin 600 MG TAB.ER.12H PO (08:21)
--- NOTE | 2024-05-31 08:38 | EXP.EVENT.NO ---
Advance care planning note: Active diagnosis: The patient's active diagnoses are of sufficient risk that focused discussion on advanced care planning is indicated in order to allow the patient to thoughtfully consider personal goals of care; and, if situations arise that prevent the ability to personally give input, to ensure appropriate representation of their personal desires through documentation or informed surrogate decision makers. Discussion: Persons present and participating in discussion: Discussion: Time spent: Total time spent [id number] in education and discussion directly related to advance care planning: (specific minutes 15-30 or >45) sign, date, time
[2024-05-31 10:29] LABS: Lactate Venous 1.3 mmol/L (0.4-2.0); VBG Base Excess 14.1 mmol/L (-2.4-2.3); VBG HCO3 40.4 mmol/L (23-30); VBG Oxygen Saturation 70.1 % (50-70); VBG PCO2 82.7 mmol/L (35-51); VBG PH 7.31 mmol/L (7.31-7.41); VBG PO2 39.7 mmol/L (28-40)
[2024-05-31 11:14] LABS: Alpha-1-Antitrypsin 118 mg/dL (101-187)
--- NOTE | 2024-05-31 11:15 | PC.NURSE ---
credit collections clerk called this nurse and said that pt O2 was 74%, when assessing pt O2 was set on 2L NC. Pt was put on 4L NC which is pt baseline and O2 came up to 95%.
[2024-05-31] MEDS: NICOTINE 21MG/24HR PATCH 21 MG TD (11:57)
--- NOTE | 2024-05-31 16:47 | P.PN_ITS ---
Subjective *Date: 05/31/24 *Time: 17:09 Interval history: Doing better today, continues to require BiPAP intermittently and over the night. Will need BiPAP on discharge. Anticipate discharge in 1 to 2 days. Exam Data for Last 24 hours Vital signs and Labs for Last 24 Hours: Temp Pulse Resp BP Pulse Ox O2 Del Method O2 Flow Rate 98.2 F 78 18 160/90 H 99 BiPAP 4 05/31/24 12:00 05/31/24 14:17 05/31/24 12:00 05/31/24 12:00 05/31/24 14:17 05/31/24 15:00 05/31/24 14:17 FiO2 25 05/31/24 03:07 Laboratory Results - last 24 hr 05/30/24 05:33: [id number] 118 05/31/24 06:40: WBC 4.7 L, RBC 4.43 L, Hgb 13.8 L, Hct 45.9, MCV 103.6 H, MCH 31.2, MCHC 30.1 L, RDW 12.8, Plt Count 179, MPV 9.0, Neut % (Auto) 81.3 H, Lymph % (Auto) 10.2, [place] % (Auto) 8.3, Eos % (Auto) 0.0 L, Baso % (Auto) 0.0 L, Neut # (Auto) 3.8, Lymph # (Auto) 0.5 L, [place] # (Auto) 0.4, Eos # (Auto) 0.0, Baso # (Auto) 0.0, Sodium 143, Potassium 4.7, Chloride 97 L, Carbon Dioxide 39 H, Anion Gap 11.7, BUN 43 H, Creatinine 1.00, Estimated Creat Clear 84, Estimated GFR 74, Est GFR ( Amer) 90, Glucose 114 H, Calcium 8.8, Magnesium 2.2, Total Bilirubin 0.3, AST 29, ALT 24, Alkaline Phosphatase 66, Total Protein 6.5, Albumin 3.9, Globulin 2.6, Albumin/Globulin Ratio 1.5 05/31/24 08:54: VBG pH 7.31, VBG pCO2 82.7 H, VBG pO2 39.7, VBG HCO3 40.4 H, VBG Total CO2 43.0 H, VBG O2 Saturation 70.1 H, VBG Base Excess 14.1 H, VBG Lactic Acid 1.3 I & O for Last 24 hours: Intake & Output 05/28/24 05/29/24 05/30/24 05/31/24 23:59 23:59 23:59 23:59 Intake Total 955 / 955 1060 / 1110 888 / 888 260 / 260 Output Total 1650 / 1650 900 / 1100 950 / 950 1600 / 1600 Balance -695 / -695 160 / 10 -62 / -62 -1340 / -1340 Weight 83 kg 80.2 kg 84 kg 84 kg Microbiology Reports for the Last 24 Hours: Microbiology 05/27/24 09:50 Blood Blood Culture - Preliminary NO GROWTH AFTER 4 DAYS 05/27/24 09:50 Blood Blood Culture - Preliminary NO GROWTH AFTER 4 DAYS Constitutional Constitutional: no acute distress *Routine HEENT Exam Head: Present normocephalic Eye: Present EOMI and PERRL ENT: Present mucous membranes moist *Routine Neck Exam Neck: Present supple; Absent lymphadenopathy *Routine Respiratory Exam Respiratory: Present wheezes and diminished air movement; Absent CTA bilaterally *Routine Cardiovascular Exam Cardiovascular: Present RRR *Routine Abdominal Exam Abdominal: Present soft and normoactive bowel sounds; Absent tenderness *Routine Extremities Exam Extremities: Absent cyanosis, clubbing or edema *Routine Skin Exam Skin: Present warm; Absent rash *Routine Neurological Exam Neurological: Present alert and oriented X3 Assessment and Plan *Assessment and plan (1) Acute on chronic respiratory failure with hypoxia and hypercapnia: Status: Resolved Category: Medical Code(s): J96.21 - Acute and chronic respiratory failure with hypoxia; J96.22 - Acute and chronic respiratory failure with hypercapnia (2) Acute exacerbation of chronic obstructive pulmonary disease: Status: Acute Category: Medical Code(s): J44.1 - Chronic obstructive pulmonary disease with (acute) exacerbation (3) CAD (coronary artery disease): Status: Acute Category: Medical Code(s): I25.10 - Atherosclerotic heart disease of [place] coronary artery without angina pectoris (4) Smoking greater than 30 pack years: Status: Acute Category: Social Hx Code(s): F17.210 - Nicotine dependence, cigarettes, uncomplicated (5) Anxiety: Status: Acute Category: Medical Code(s): F41.9 - Anxiety disorder, unspecified (6) Pulmonary embolism: Status: Acute Qualifiers: Acute cor pulmonale presence: without acute cor pulmonale Chronicity: acute Pulmonary embolism type: other Qualified Code(s): I26.99 - Other pulmonary embolism without acute cor pulmonale Category: Medical Code(s): I26.99 - Other pulmonary embolism without acute cor pulmonale (7) Hypertension: Status: Acute Qualifiers: Hypertension type: primary hypertension Qualified Code(s): I10 - Essential (primary) hypertension Category: Medical Code(s): I10 - Essential (primary) hypertension (8) Hyperlipidemia: Status: Acute Qualifiers: Hyperlipidemia type: mixed hyperlipidemia Qualified Code(s): E78.2 - Mixed hyperlipidemia Category: Medical Code(s): E78.5 - Hyperlipidemia, unspecified (9) Tobacco dependence: Status: Acute Category: Medical Code(s): F17.200 - Nicotine dependence, unspecified, uncomplicated (10) Alcohol use disorder, severe, in early remission: Status: Inactive Category: Medical Code(s): F10.21 - Alcohol dependence, in remission Plan Patient is a 68-year-old male with past medical history of CAD, pulmonary embolism on Eliquis, COPD on 4 to 6 L nasal cannula at home, hypertension, hyperlipidemia who presents to the hospital due to shortness of breath. Shortness of breath is gotten worse over the past few days. His significant other was sick last week and now he has had increased cough and dyspnea. Discussed case with ER physician, request admission for hypercapnic respiratory failure. I agreed to admit for further management. Continue to wear BiPAP as he is responding appropriately with improvement in pH. Problems addressed as follows: #Acute metabolic encephalopathy #Acute hypoxic and hypercapnic respiratory failure #COPD exacerbation ? Initially presented with tachypnea, hypoxic and hypercapnic on blood gas with pH 7.11 and pCO2 of 113. CXR without acute infiltrates. ? BiPAP overnight, VBG showing ongoing hypercapnia. Continue BiPAP nightly. ? Slightly improved air movement today, stable on 3 L nasal cannula most of the day. ? White count is stable at 5.6, hemoglobin 13. COVID and flu negative. ? Continue DuoNebs every 4 hours, Pulmicort twice daily, Solu-Medrol 60 mg daily. ? Continue doxycycline 100 mg twice daily. ? Anticipate discharge in 1 to 2 days given improvement in patient's presentation. ? Repeat CBC, CMP, magnesium ordered for the morning. #Mood disorder ? Continue Lexapro 20 mg daily. #CAD #Chronic HFpEF ? BNP elevated at 642, without signs of volume overload. ? Continue aspirin, statin, Bisoprolol 5 mg daily, Crestor 10 mg daily. ? Continue lasix 40mg IV daily. #Pulmonary hypertension #History of PE ? Continue home Eliquis 5mg BID. ? Echo 01/2024 with normal EF, preserved ejection fraction, Elevated RVSP. DVT prophylaxis: on Eliquis Full code Cardiac diet
--- NOTE | 2024-05-31 18:08 | PC.NURSE ---
Pt alert and oriented x4. Pt on 3L NC most of this shift. Pt was on BiPaP today for about 3 hours. Pt has inspiratory and expiratory wheezing upon lung auscultation. Pt has been lying in bed most of day and gets very SOA when trying to get up. He is tolerating meals. Family is now at bedside. Pt resting comfortably with no complaints at this time. Call light in reach.
[2024-05-31] MEDS: ATORVASTATIN 40MG TABLET 40 MG PO (20:08)
[2024-06-01] VITALS (10 sets, daily range): BP systolic 141–176; BP diastolic 74–94; PULSE 65–90; RESP 18; TEMP 36.6; O2SAT 92–100; BMI 25.0
[2024-06-01] MEDS: DOXYCYCLINE HYCLATE 100 MG in 0.9 % SODIUM CHLORIDE 250 ML 166.667 MG IV (01:43)
[2024-06-01] MEDS: IPRATROPIUM/ALBUTEROL 3 ML NEB IH ×4 (02:16→15:22)
--- NOTE | 2024-06-01 04:55 | PC.NURSE ---
A&OX4. Currently on Bipap tolerating well. When Bipap is not in place he is tolerating 4L nasal cannula. Wheezing noted upon lung auscultation. He has received IV abx. No complaints at this time, call light within reach.
[2024-06-01] MEDS: BUDESONIDE 0.5MG/2ML NEB 0.5 MG IH (06:19)
[2024-06-01 07:38] LABS: Basophils % 0.2 % (0.1-2.0); Hematocrit 47.4 % (42.0-52.0); Hemoglobin 14.3 g/dL (14.1-18.0); Lymphocytes # 0.7 K/mm3 (0.7-4.5); Lymphocytes % 13.1 % (10-50); Mean Corpuscular HGB Conc 30.2 g/dL (31.8-35.4); Mean Corpuscular Hemoglobin 31.2 pg (27.0-31.2); Mean Corpuscular Volume 103.3 fl (80-94); Mean Platelet Volume 9.7 fl (7.4-10.4); Monocytes # 0.8 K/mm3 (0.1-1.0); Monocytes % 14.5 % (1.7-9.3); Neutrophils # 4.1 K/mm3 (1.8-7.8); Platelet Count 207 K/mm3 (142-424); Red Blood Count 4.59 M/mm3 (4.60-6.20); Red Cell Distribution Width 12.8 % (11.5-17.5); White Blood Count 5.6 K/mm3 (4.8-10.8)
[2024-06-01 07:53] LABS: Alanine Aminotransferase 29 U/L (12-78); Albumin Level 4.2 g/dl (3.5-5.0); Albumin/Globulin Ratio 1.5 (1.1-1.8); Alkaline Phosphatase 65 U/L (38-126); Aspartate Amino Transferase 31 U/L (17-59); Bilirubin,Total 0.3 mg/dl (0.2-1.3); Blood Urea Nitrogen 43 mg/dl (9-20); Calcium 8.8 mg/dl (8.4-10.2); Chloride 96 mmol/L (98-107); Creatinine Clearance Estimated 79 mL/min (50-200); Estimated Glomerular Filt Rate 74 ml/min (>60); GFR (African American) 90 ML/MIN (>60); Globulin 2.8 g/dL (1.3-3.2); Glucose 87 mg/dl (74-100); Magnesium 2.3 mg/dl (1.6-2.3); Sodium 144 mmol/L (136-145)
[2024-06-01] MEDS: METHYLPREDNISOLONE SOD SUCC 125MG VIAL 60 MG IV (08:42)
[2024-06-01] MEDS: ASPIRIN EC 81MG TABLET 81 MG PO (08:42)
[2024-06-01] MEDS: FUROSEMIDE 40MG/4ML VIAL 40 MG IV (08:42)
[2024-06-01] MEDS: FOLIC ACID 1MG TABLET 1 MG PO (08:42)
[2024-06-01] MEDS: CITALOPRAM 40MG TABLET 40 MG PO (08:42)
[2024-06-01] MEDS: BISOPROLOL 5MG TABLET 5 MG PO (08:42)
[2024-06-01] MEDS: APIXABAN 5MG TABLET 5 MG PO (08:44)
[2024-06-01] MEDS: NICOTINE 21MG/24HR PATCH 21 MG TD (08:54)
[2024-06-01 09:01] LABS: Potassium 4.7 mmoL/L (3.5-5.1)
[2024-06-01 09:59] LABS: Anion Gap 12.7 mEq/L (5-15); Carbon Dioxide 40 mmol/L (22.0-30.0)
--- NOTE | 2024-06-01 14:26 | P.DS_ITS ---
General Admission date:: 05/27/24 HPI HPI HPI: Mr. Flores is a 68-year-old male with significant history of COPD, pulmonary emboli, CAD, hyperlipidemia, chronic respiratory failure on oxygen. He reports worsening cough and shortness of breath over the past few days. Presented to the ER in respiratory distress. Found to have significant hypercapnia and respiratory acidosis. Initiated on empiric antibiotics with ceftriaxone and azithromycin. BiPAP initiated due to pCO2 of 110. Medicine consulted for admission and further management. Patient wears at least 3 L of oxygen at home at baseline. Denied fever, chills, nausea or vomiting. Confused on arrival. Poor air movement with significant wheeze. On arrival to the ICU, patient in moderate distress. Tolerating BiPAP at this time. Repeat blood gas not showing much improvement. Pulmonology consulted to assist with management. Necessitating ICU level of care and close monitoring. Alert but not oriented. Hospital Course Hospital Course Hospital Course: Patient is a 68-year-old male with past medical history of CAD, pulmonary embolism on Eliquis, advanced COPD on 4 to 6 L nasal cannula at home, hypertension, hyperlipidemia who presents to the hospital due to shortness of breath and was admitted acute metobolic encephalopahy, acute on chronic hypoxic/hypercapnic respiratory failure, COPD exacerbation. #Acute metabolic encephalopathy #Acute on chornic hypoxic and hypercapnic respiratory failure #COPD exacerbation ? Initially presented with tachypnea, hypoxic and hypercapnic on blood gas with pH 7.11 and pCO2 of 113. CXR without acute infiltrates. - Gradually improved with Bipap, Duonebs, Pulmicort, steroids, doxycycline. - Needing Bipap nightly, as patient's advanced COPD continue to show acute hypercapnia daily without it. - Discharged with Bipap 18/8 FiO2 25%, Duonebs Q6h PRN, continue Trelegy 100. Also takes prednisone 5mg 3x weekly. - Will follow-up with pulmonology within 1 week. #Mood disorder ? Continue Lexapro 20 mg daily. #CAD #Chronic HFpEF ? BNP elevated at 642, without signs of volume overload. ? Continue aspirin, statin, Bisoprolol 5 mg daily, Crestor 10 mg daily. #Pulmonary hypertension #History of PE ? Continue home Eliquis 5mg BID. ? Echo 01/2024 with normal EF, preserved ejection fraction, Elevated RVSP. Total time spent on discharge: 32 minutes on chart review, counseling, documentation, and direct care with patient. Exam Data for Last 24 hours Vital signs and Labs for Last 24 Hours: Temp Pulse Resp BP Pulse Ox O2 Del Method O2 Flow Rate 97.8 F 80 18 141/74 H 100 Nasal Cannula 3.5 06/01/24 11:49 06/01/24 12:00 06/01/24 11:49 06/01/24 11:49 06/01/24 11:49 06/01/24 11:49 06/01/24 11:49 FiO2 25 06/01/24 00:00 Laboratory Results - last 24 hr 06/01/24 06:43: WBC 5.6, RBC 4.59 L, Hgb 14.3, Hct 47.4, MCV 103.3 H, MCH 31.2, MCHC 30.2 L, RDW 12.8, Plt Count 207, MPV 9.7, Neut % (Auto) 72.0, Lymph % (Auto) 13.1, [place] % (Auto) 14.5 H, Eos % (Auto) 0.0 L, Baso % (Auto) 0.2, Neut # (Auto) 4.1, Lymph # (Auto) 0.7, [place] # (Auto) 0.8, Eos # (Auto) 0.0, Baso # (Auto) 0.0, Sodium 144, Potassium 4.7, Chloride 96 L, Carbon Dioxide 40 H, Anion Gap 12.7, BUN 43 H, Creatinine 1.00, Estimated Creat Clear 79, Estimated GFR 74, Est GFR ( Amer) 90, Glucose 87, Calcium 8.8, Magnesium 2.3, Total Bilirubin 0.3, AST 31, ALT 29, Alkaline Phosphatase 65, Total Protein 7.0, Albumin 4.2, Globulin 2.8, Albumin/Globulin Ratio 1.5 I & O for Last 24 hours: Intake & Output 05/29/24 05/30/24 05/31/24 06/01/24 23:59 23:59 23:59 23:59 Intake Total 1060 / 1110 888 / 888 660 / 860 680 / 680 Output Total 900 / 1100 950 / 950 2300 / 2300 1700 / 1700 Balance 160 / 10 -62 / -62 -1640 / -1440 -1020 / -1020 Weight 80.2 kg 84 kg 84 kg 79.152 kg Microbiology Reports for the Last 24 Hours: Microbiology 05/27/24 09:50 Blood Blood Culture - Final NO GROWTH AFTER 5 DAYS 05/27/24 09:50 Blood Blood Culture - Final NO GROWTH AFTER 5 DAYS Constitutional Constitutional: no acute distress *Routine HEENT Exam Head: Present normocephalic Eye: Present EOMI and PERRL ENT: Present mucous membranes moist *Routine Neck Exam Neck: Present supple; Absent lymphadenopathy *Routine Respiratory Exam Respiratory: Present wheezes; Absent CTA bilaterally *Routine Cardiovascular Exam Cardiovascular: Present RRR *Routine Abdominal Exam Abdominal: Present soft and normoactive bowel sounds; Absent tenderness *Routine Extremities Exam Extremities: Absent cyanosis, clubbing or edema *Routine Skin Exam Skin: Present warm; Absent rash *Routine Neurological Exam Neurological: Present alert and oriented X3 Results Data Completed and Pending Labs on day of discharge: Labs from last 24 hours 06/01/24 06:43 WBC 5.6 RBC 4.59 L Hgb 14.3 Hct 47.4 MCV 103.3 H MCH 31.2 MCHC 30.2 L RDW 12.8 Plt Count 207 MPV 9.7 Neut % (Auto) 72.0 Lymph % (Auto) 13.1 [place] % (Auto) 14.5 H Eos % (Auto) 0.0 L Baso % (Auto) 0.2 Neut # (Auto) 4.1 Lymph # (Auto) 0.7 [place] # (Auto) 0.8 Eos # (Auto) 0.0 Baso # (Auto) 0.0 Sodium 144 Potassium 4.7 Chloride 96 L Carbon Dioxide 40 H Anion Gap 12.7 BUN 43 H Creatinine 1.00 Estimated Creat Clear 79 Estimated GFR 74 Est GFR ( Amer) 90 Glucose 87 Calcium 8.8 Magnesium 2.3 Total Bilirubin 0.3 AST 31 ALT 29 Alkaline Phosphatase 65 Total Protein 7.0 Albumin 4.2 Globulin 2.8 Albumin/Globulin Ratio 1.5 DS: Diagnosis Discharge Diagnosis (1) Acute on chronic respiratory failure with hypoxia and hypercapnia: Status: Resolved Code(s): J96.21 - Acute and chronic respiratory failure with hypoxia; J96.22 - Acute and chronic respiratory failure with hypercapnia (2) Acute exacerbation of chronic obstructive pulmonary disease: Status: Resolved Code(s): J44.1 - Chronic obstructive pulmonary disease with (acute) exacerbation (3) CAD (coronary artery disease): Status: Acute Code(s): I25.10 - Atherosclerotic heart disease of [place] coronary artery without angina pectoris (4) Smoking greater than 30 pack years: Status: Acute Code(s): F17.210 - Nicotine dependence, cigarettes, uncomplicated (5) Anxiety: Status: Acute Code(s): F41.9 - Anxiety disorder, unspecified (6) Hypertension: Status: Acute Code(s): I10 - Essential (primary) hypertension Qualifiers: Hypertension type: primary hypertension Qualified Code(s): I10 - Essential (primary) hypertension (7) Hyperlipidemia: Status: Acute Code(s): E78.5 - Hyperlipidemia, unspecified Qualifiers: Hyperlipidemia type: mixed hyperlipidemia Qualified Code(s): E78.2 - Mixed hyperlipidemia (8) Tobacco dependence: Status: Acute Code(s): F17.200 - Nicotine dependence, unspecified, uncomplicated Meds Home Medications and Allergies Home Medications ?Medication ?Instructions ?Recorded ?Confirmed ?Type escitalopram oxalate 20 mg tablet 20 mg PO DAILY 03/24/20 05/27/24 History aspirin 81 mg tablet,delayed 81 mg PO DAILY 05/22/23 05/27/24 History release folic acid 1 mg tablet 1 mg PO DAILY 05/22/23 05/27/24 History apixaban 5 mg tablet (Eliquis) 5 mg PO BID 07/07/23 05/27/24 History furosemide 20 mg tablet 20 mg PO MOWEFR 07/07/23 05/27/24 History ipratropium 0.5 mg-albuterol 3 mg 3 ml inhalation Q6RT #0 mL 07/12/23 05/27/24 Rx (2.5 mg base)/3 mL nebulization soln atorvastatin 40 mg tablet 40 mg PO HS 01/16/24 05/27/24 History bisoprolol fumarate 5 mg tablet 5 mg PO DAILY 05/27/24 05/27/24 History prednisone 5 mg tablet 5 mg PO MOWEFR 05/27/24 05/27/24 History fluticasone fur. 100 mcg-umeclid 1 inh inhalation DAILY 30 days #60 06/01/24 Rx 62.5 mcg-vilant 25 mcg ea inhalat.powder (Trelegy Ellipta) New Prescriptions to Start Prescriptions: [id number]-agxqacqat-xopauzym [Trelegy Ellipta] Eloy Aaron Allergies Allergy/AdvReac Type Severity Reaction Status Date / Time erythromycin base Allergy Unknown NA-NAUSEA/V Verified 05/27/24 16:19 (ERYTHROMYCIN BASE) OMITING Discharge Plan Disposition Patient Disposition: Home, Self-Care Condition: Fair Discharge Order Discharge Orders: Discharge Order (Routine); Ordered 06/01/24 Ordered By: Eloy Aaron Follow up Plan Follow up with: Bryan Ramirez MD [Physician] - 06/05/24 (please call for appointment) Prescriptions/Medication Reconciliation: Continued folic acid 1 mg tablet 1 mg PO DAILY Patient Comments: TAKE ONE TABLET BY MOUTH DAILY AT 9 AM aspirin 81 mg tablet,delayed release (DR/EC) 81 mg PO DAILY prednisone 5 mg tablet 5 mg PO MOWE Patient Comments: take ONE tablet by MOUTH daily ONLY ON monday, monday, AND monday bisoprolol fumarate 5 mg tablet 5 mg PO DAILY Trelegy Ellipta 100-62.5-25 mcg blister with device 1 inh INHALATION DAILY 30 Days Qty: 60 0RF escitalopram oxalate 20 MG tablet 20 mg PO DAILY furosemide 20 mg tablet 20 mg PO MOWE Patient Comments: TAKE ONE TABLET BY MOUTH ONCE ON MONDAY, MONDAY, AND MONDAY (VIAL) Eliquis 5 mg Tablet 5 mg PO BID ipratropium-albuterol 0.5 mg-3 mg(2.5 mg base)/3 mL Solution For Nebulization 3 ml inhalation Q6RT Qty: 0 0RF atorvastatin 40 mg tablet 40 mg PO HS Patient Comments: Take 1 tablet every day by oral route at bedtime. Problem Reconciliation Problems Reviewed?: Yes Patient Discharge Instructions Additional Instructions: BiPAP setting: EPAP 8, IPAP 18 and FiO2 of 25%. Patient Instructions: Heart-Healthy Diet, DI for Chronic Obstructive Pulmonary Disease, DI for Respiratory Failure, NCM Chronic Obstructive Pulmonary Disease (COPD) Diet, NCM High-Calorie High-Protein Diet, WM High Calorie High Protein Diet Recipes Print Language: Mongolian Providers Primary Care Provider: Provider,Referral Admit Provider: Sunday King Attending Provider: Sunday King
--- NOTE | 2024-06-03 11:54 | SW/DCPLANNER ---
Spoke with patient on the phone. Patient stated that he is doing well. Patient stated that he is aware of his upcoming appointments. Patient stated that he was able to get his new medicine picked up. Patient stated that he has no concerns or questions at this time. Harjeet Riddle
== END 2024-06-01 15:53 | disposition home or self-care (01) | DRG 70 ==
LOC: ER 08:33 → ICU 12:18 → 2ND 05-30 13:33
PROVIDERS: Internal Medicine Pulmonary Disease; Student in an Organized Health Care Education/Training Program; Admitting Provider Internal Medicine Adolescent Medicine; Emergency Provider Student in an Organized Health Care Education/Training Program; Visit Provider Internal Medicine Adolescent Medicine
DX: G93.41 Metabolic encephalopathy (principal); J96.21 Acute and chronic respiratory failure with hypoxia; J96.22 Acute and chronic respiratory failure with hypercapnia; J44.1 Chronic obstructive pulmonary disease with (acute) exacerbation; I11.0 Hypertensive heart disease with heart failure; I50.32 Chronic diastolic (congestive) heart failure; F10.21 Alcohol dependence, in remission; E78.5 Hyperlipidemia, unspecified; I25.2 Old myocardial infarction; I25.10 Atherosclerotic heart disease of native coronary artery without angina pectoris; F17.210 Nicotine dependence, cigarettes, uncomplicated; I27.20 Pulmonary hypertension, unspecified; F39 Unspecified mood [affective] disorder; R91.1 Solitary pulmonary nodule; F41.9 Anxiety disorder, unspecified; Z79.899 Other long term (current) drug therapy; Z99.81 Dependence on supplemental oxygen; Z79.82 Long term (current) use of aspirin; Z79.51 Long term (current) use of inhaled steroids; Z88.1 Allergy status to other antibiotic agents; Z80.1 Family history of malignant neoplasm of trachea, bronchus and lung; Z83.6 Family history of other diseases of the respiratory system; Z86.711 Personal history of pulmonary embolism
CPT/HCPCS: 36415; 71046; 80053; 82103; 82803; 83605; 83735; 83880; 84484; 85007; 85025; 87040; 87070; 87205; 87636; 93005; 94640; 94660; 94761; 94762; 99291; J1940; J2060; J2919; J3475; J7120; J7613; J7620